=== PATIENT | male | born 1955 | race Caucasian/White ===

== ENCOUNTER 2024-04-04 08:05 | Emergency (ER) | payer MEDICARE, SELFPAY ==
[2024-04-04 08:18] VITALS: BP 132/76; PULSE 70; RESP 18; TEMP 36.3; O2SAT 100
--- NOTE | 2024-04-04 08:30 | ED_ITS ---
HPI - URI/Sore Throat General Chief Complaint: Upper Respiratory Infection Stated Complaint: bronchitis Time Seen by Provider: 04/04/24 08:09 Source: patient Limitations: no limitations History of Present Illness HPI Narrative: 68-year-old male presents to [facility] with complaints of postnasal drip for the past 2 weeks. Patient reports that he then started with a dry cough and chest congestion last night. Patient reports he has history of bronchitis in using receives under medications from his primary care provider. Patient reports that his currently has a sinus infection. Patient has not tried taking any [id number] medications for his symptoms. Patient is a nonsmoker. Patient reports that he did travel to [place] a few weeks ago. Patient denies nausea, vomiting, diarrhea, shortness of breath, fever, fever, body aches or chills. MD elicited complaint: cough and other (chest congestion ) Onset (ago): hour(s) (12) Consistency: intermittent Exacerbating factors: nothing Associated symptoms: denies other symptoms Treatments prior to arrival: none Related Data Home Medications ?Medication ?Instructions ?Recorded ?Confirmed ?Last Taken ?Type potassium citrate 10 mEq (1,080 PO 06/15/19 Unknown History mg) tablet,extended release aspirin 81 mg tablet,delayed 81 mg PO DAILY 04/04/24 Unknown History release (Adult Aspirin Regimen) carvedilol 3.125 mg tablet mg 04/04/24 Unknown History cholecalciferol (vitamin D3) 25 25 mcg PO DAILY 04/04/24 Unknown History mcg (1,000 unit) capsule ezetimibe 10 mg tablet mg 04/04/24 Unknown History multivitamin (Daily Multi-Vitamin 1 tablet PO DAILY 04/04/24 Unknown History tablet) Allergies Allergy/AdvReac Type Severity Reaction Status Date / Time No Known Allergies Allergy Verified 04/04/24 08:19 Review of Systems Constitutional: Constitutional: Denies chills, Denies fatigue, Denies fever(s) and Denies weakness ENT: Denies vertigo, Denies dizziness, Denies epistaxis, Reports nasal congestion and Denies sore throat Cardiovascular: Cardiovascular: Denies chest pain Respiratory: Respiratory: Reports cough, Denies dyspnea and Denies wheezing Gastrointestinal: Gastrointestinal: Denies diarrhea, Denies nausea and Denies vomiting Integumentary/Breasts: Skin/Breast: Denies pruritus, Denies erythema and Denies rash PMFSH Social History Social History Second hand tobacco smoke exposure: No Alcohol intake: never Comments At time of signature, I agree with nursing past medical, surgical, social and family history. There is no relevant family history pertinent to the presenting complaint. Exam Const: General: healthy appearing Nutritional Appearance: well nourished Orientation/consciousness: patient oriented x3 HENMT: Head: normal to inspection Ears: external ears normal and TM's normal bilaterally Face/Nose/Sinus: Normal external nose present and Normal nares present Mouth: Yes Normal oral and palatal mucosa present Teeth and gingiva: dentition normal Throat: posterior oropharynx normal and uvula midline Eyes: Conjunctivae: conjunctivae normal Neck: Neck: normal visual inspection Resp: Effort & Inspection: normal respiratory effort and not labored Auscultation: clear to auscultation bilaterally, no crackles, no rales, no rhonc hi and no wheezes Cardio: Rate: regular rate Rhythm: regular rhythm Heart sounds: no murmurs Skin: General skin exam: normal color Rashes: no rashes Wounds: no wounds Neuro: General: patient oriented x3 and moves all extremities Speech: normal speech Gait exam (Neuro): Normal gait present Extrem: General: normal to inspection Psych: Mental Status: mental status grossly normal Affect: normal affect Attitude: cooperative Course Course Level of Care: Express Care Visit Vital Signs Vital signs: Vital Signs Temperature 36.3 C L 04/04/24 08:18 Pulse Rate 70 04/04/24 08:18 Respiratory Rate 18 04/04/24 08:18 Blood Pressure 132/76 04/04/24 08:18 Pulse Oximetry 100 04/04/24 08:18 Oxygen Delivery Room Air 04/04/24 08:18 Temperature 36.3 C L 04/04/24 08:18 Pulse Rate 70 04/04/24 08:18 Respiratory Rate 18 04/04/24 08:18 Blood Pressure 132/76 04/04/24 08:18 Pulse Oximetry 100 04/04/24 08:18 Oxygen Delivery Room Air 04/04/24 08:18 MDM - URI/Sore Throat MDM Narrative Medical decision making narrative: Lengthy discussion with patient that symptoms are likely viral at this time. Patient has not tried taking any medications for his symptoms. Patient agrees to take medications as prescribed and to follow up with primary care provider if symptoms not improved. Educated patient to proceed to the emergency room symptoms worsen Differential Diagnosis Differential diagnosis: Likely otitis media, sinusitis and viral infection Critical Care Time Critical Care Time Critical Care Time: No Discharge Plan Discharge Clinical Impression: Viral infection Patient Disposition: Home, Self-Care Condition: Stable Instructions: Antibiotic Form Additional Instructions: Rest Increase fluids Take Claritin daily Take Tessalon as needed for cough Take prednisone as prescribed Follow-up with primary care provider if symptoms not improved Proceed to the emergency room if symptoms worsen Patient Language: Persian Prescriptions: New loratadine [Claritin] 10 mg tablet 10 mg PO DAILY Qty: 30 0RF prednisone 20 mg tablet 40 mg PO DAILY 5 Days Qty: 10 0RF benzonatate 100 mg capsule 100 mg PO TID PRN (Reason: cough) Qty: 20 0RF No Action carvedilol 3.125 mg tablet ezetimibe 10 mg tablet aspirin [Adult Aspirin Regimen] 81 mg tablet,delayed release (DR/EC) 81 mg PO DAILY multivitamin [Daily Multi-Vitamin] Tablet 1 tablet PO DAILY cholecalciferol (vitamin D3) 25 mcg (1,000 unit) capsule 25 mcg PO DAILY potassium citrate 10 mEq (1,080 mg) tablet extended release PO atorvastatin 20 mg tablet 20 mg PO DAILY 90 Days Qty: 90 3RF levothyroxine 125 mcg tablet 125 mcg PO DAILY Qty: 90 0RF Follow-up/Referrals: UNKNOWN,DOCTOR [Primary Care Provider] - Time of Disposition: 08:40
--- OUTSIDE RECORDS SUMMARY | 2024-04-11 05:32 | XMS_ITS | Encounter Summary ---
Author Organization [facility] Health Address [address] [place] [address] Care Team Providers Care Insurance Account Executive Name Role Phone JennieKacey membreno [employer] Primary Care Provider + Reason for Visit * Auth/Cert (Routine) Specialty Diagnoses / Procedures Referred By Contac t Referred To Contact Referral ID Status Reason Start Date Expiration Date Visits Re quested Visits Authorized [id number] 1 1 Encounter Details Date Type Department Care Team (Latest Contact Info) Description 11/13/2022 12:45 PM CDT Home Care Visit [facility] Health at Home Home Health [address] [place] [phone] Richa August, YEN SN DISCIPLINE DISCHARGE Social History Tobacco Use Types Packs/Day Years Used Date Smoking Tobacco: Never Smokeless Tobacco: Never Alcohol Use Standard Drinks/Week Comments Not Currently 0 (1 standard drink = 0.6 oz pur e alcohol) AUDIT-C Answer Date Recorded Q1: How often do you have a drink containing alc ohol? Monthly or less 10/29/2022 Q2: How many drinks containi ng alcohol do you have on a typical day when you are drinking? 1 or 2 10/29/2022 Q3: How often do you have si x or more drinks on one occasion? Less than monthly 10/29/2022 Overall Financial Resource Strain (CARDIA) Answe r Date Recorded How hard is it for you to pa y for the very basics like food, housing, medical care, and heating? Not hard at all 10/30/2022 [facility] of Occupat ional Health - Occupational Stress Questionnaire Answer Date Recorded Do you feel stress - tense, restless, nervous, or anxious, or unable to sleep at night because your mind is troubled all the time - these days? Not at all 10/30/2022 Hunger Vital Sign Answer Date Recorded Within the past 12 months, y ou worried that your food would run out before you got the money to buy more. Never true 10/31/19 23 Within the past 12 months, t he food you bought just didn't last and you didn't have money to get more. Never true 10/30/2022 PRAPARE - Transportation Answer Date Re corded In the past 12 months, has l ack of transportation kept you from medical appointments or from getting medications? No 10/13 In the past 12 months, has l ack of transportation kept you from meetings, work, or from getting things needed for daily living? No 10/30/2022 Housing Stability Vital Sign Answer Carl e Recorded In the last 12 months, was t here a time when you were not able to pay the mortgage or rent on time? No 10/30/2022 In the last 12 months, how many places have you lived? 1 10/30/2022 In the last 12 months, was t here a time when you did not have a steady place to sleep or slept in a usp (including now)? No 10/30/2022 Sex and Gender Information Value Date Recorded Sex Assigned at Male 11/11/2021 8:34 AM CDT Gender Identity Male 11/11/2021 8:34 AM CDT Sexual Orientation Straight 11/11/2021 8: 34 AM CDT COVID-19 Exposure Response Date Recorded In the last 10 days, have yo u been in contact with someone who was confirmed or suspected to have Coronavirus/COVID-19? No / Unsure 11/12/2022 8:43 AM CDT documented as of this encounter Last Filed Vital Signs Vital Sign Reading Time Taken Comments Blood Pressure 142/78 11/13/2022 12:58 PM CDT Pulse 74 11/13/2022 12:58 PM CDT Temperature 36.5 ??C (97.7 ??F) 11/13/2022 12:58 PM C DT Respiratory Rate 16 11/13/2022 12:58 PM CDT Oxygen Saturation 98% 11/13/2022 12:58 PM CDT Inhaled Oxygen Concentration - - Weight - - Height - - Body Mass Index - - documented in this encounter Plan of Treatment Not on file documented as of this encounter Visit Diagnoses Not on filedocumented in this encounter Home Health Visit - Care Plan Visit Details Visit Type -SN Discipline Di maximino Discipline -Residential Problems Problem Description Start Date Status Goals Interve ntions X Additional Home Health Orders Disciplines: All Disciplines (HH/Hospice) 11/01/2022 Active 1 goal linked to scheduled/[facility] intervention 1 goal intervention scheduled/[facility] in this visit Knowledge deficit and post op orthopedic management related to aftercare. Disciplines: Skilled Nurse(HH/Hospice ) Knowledge deficit and post op orthopedic management related to LEFT TKA aftercare. 11/01/2022 Active 1 goal linked to scheduled/[facility] intervention 1 goal intervention scheduled/[facility] in this visit Goals Goal Associated Problem Outcome Goal Met? Visit Notes Additional Home Health Orders Description: VITAL SIGNS WILL REMAIN WITHIN PARAMETERS: TEMPERATURE (??F) Adult Patient Greater Than 100.4 (oral) Greater Than 99.8 (axillary) Greater Than 100 (tympanic) Less Than 96 RESPIRATORY RATE Greater Than 24 Less Than 12 PULSE RATE Greater Than 100 Less Than 60 BLOOD PRESSURE --Adult Patient Systolic Greater Than 160 Less Than 90 Diastolic Greater Than 90 Less Than 60 OXYGEN SATURATION Less Than 92 X Additional Home Health Orders Adequate for Discharge No Incision will demonstrate healing until closure without complications. Knowledge deficit and post op orthopedic management related to aftercare. Completed Yes Interventions Intervention Associated Problem/Goal Status Variance Visit Notes Additional Home Health Orders Description: - Assess vital signs and notify MD of significant changes. Problem:X Additional Home Health Orders Goal:Additional Home Health Orders Completed VS WNL Instruct patient on normal signs of healing including but not limited to redness, heat, warmth, swelling, low grade temp, small amount of drainage and discomfort Description: Wound Care: Keep incision clean and dry. Silver dressing should be kept on for 6-8 days from DATE OF PLACEMENT which is generally day of surgery. Dressing may be peeled back to assess wound then reapplied. If dressing is overly saturated due to excessive bleeding or drainage, or if dressing no longer adheres it should be removed. After 6-8 (11/04-11/06) days, or if early failure of silver dressing, replace with dry border gauze dressing as needed for drainage. Remove jeff on day 13 - 15 (11/11-11/13). Do not apply steri-strips. -Edema management: Ice 15-20 minutes/hour prn pain and/or edema management. -Elevation higher than heart 45 minutes, 3x/day -INSTRUCT PATIENT ON PAIN MANAGEMENT, S/S TO REPORT, AND MEDICATIONS. Problem:Knowledge deficit and post op orthopedic management related to aftercare. Goal:Incision will demonstrate healing until closure without complications. Completed JEFF REMOVED PER MD ORDERS. COVERED W/ BORDER GAUZE. SN INSTRUCTED PATIENT TO LEAVE DSG IN PLACE X 24 HOURS AND DO NOT GET WET. IF NO DRAINAGE PRESENT AFTER 24 HOURS, MAY LEAVE CERAMIC ENGINEERING PROFESSOR AND RESUME SHOWERS. NO TUB BATHS AND NO OINTMENTS/ LOTIONS ON INCISION. PATIENT KNOWLEDGABLE ON S/S TO REPORT, MEDS, AND PAIN CONTROL MEASURES. documented in this encounter Care Teams Insurance Account Executive Relationship Specialty Start Date End Date Kacey Lafleur, [employer] [id number], [address] [place] [address] PCP - General Nurse Practitioner Family 09/25/22 documented as of this encounter
--- OUTSIDE RECORDS SUMMARY | 2024-04-11 05:32 | XMS_ITS | Encounter Summary ---
Author Organization [facility] Address [address] [place] [address] Care Team Providers Care Instrument Calibrator Name Role Phone Wongjuan Kacey NOYOLA-EARLY CHILDHOOD EDUCATION COORDINATOR Primary Care Provider + Reason for Visit * Reason Comments Post-Op Lt TKA 10/30/11 / 6 weeks out. Encounter Details Date Type Department Care Team (Late st Contact Info) Description 12/10/2022 2:30 PM CDT Office Visit [facility] Orthoped[facility] [address] [phone] [place] [id number] [address] Aftercare following left knee joint replacement surgery (Primary Dx) Social History Tobacco Use Types Packs/Day Years Used Date Smoking Tobacco: Never Smokeless Tobacco: Never Alcohol Use Standard Drinks/Week Comments Not Currently 0 (1 standard drink = 0.6 oz pur e alcohol) OASIS D0700: Social Isolation Answer Da te Recorded Frequency of experiencing loneliness or isolatio n Never 11/16/2022 OASIS A1250: Transportation Answer Date Recorded Lack of Transportation (Medical) No 11/16/2022 Lack of Transportation (Non-Medical) No 11/16/2022 Patient Unable or Declines to Respond No 11/16/2022 OASIS B1300: Health Literacy Answer Carl e Recorded Frequency of needing help to read materials from doctor or pharmacy Never 11/16/2022 AUDIT-C Answer Date Recorded Q1: How often [...] and heating? Not hard at all 10/30/2022 [facility] of Occupat ional [facility] - Occupational Stress Questionnaire Answer Date Recorded [...] place to sleep or slept in a nursing home (including now)? No 10/30/2022 Sex and Gender Information Value Date Recorded Sex Assigned at Male 11/11/2021 8:34 AM CDT Gender Identity Male 11/11/2021 8:34 AM CDT Sexual Orientation Straight 11/11/2021 8: 34 AM CDT COVID-19 Exposure Response Date Recorded In the last 10 days, have yo u been in contact with someone who was confirmed or suspected to have Coronavirus/COVID-19? No / Unsure 11/16/2022 8:50 AM CDT documented as of this encounter Progress Notes * Carlton Mayo PA-C - 12/10/2022 3:04 PM CDT 6 weeks out on left tka had a small area where there was a small pin hole medially healing well 2-116 f/u in 4-6 weeks * Radha Khan MA - 12/10/2022 2:40 PM CDT Chief Complaint Patient presents with ??? Post-Op Lt TKA 10/29/ / 6 weeks out. documented in this encounter H&P Notes * Carlton Mayo PA-C - 12/19/2022 2:43 AM CDT DATE OF SERVICE: 12/10/2022 HISTORY: Patient is six weeks out on his left knee replacement. Left knee is progressing slowly. He had one small area on his incision that looks likes that he was having a little bit of a stitch rising up, but there was no evidence of any drainage or erythema. CLINICAL EXAMINATION: Today, exam shows a well-healed incision. No evidence of any infection. Motion, he is 0-116 with good strength, good stability, good terminal extension. His one area on his incision is midline, slight pinhole, but it looks like a stitch was coming through. IMPRESSION: Progressing well. TREATMENT: We will see his back in the office in about 4 weeks. If he has any problems or concerns, we will see him back sooner, such as any fevers, chills, pain with motion, redness, heat. We would want to see him back sooner with any of those symptoms, but he should do well with this. MARY JO Medrano M.D. SALLIE/Clemente #: [id number] documented in this encounter Procedure Notes * Misa Bray RT(R) - 12/10/2022 3:04 PM CDTAssociated Order(s): XR KNEE LEFT 3VW See progress notes for results documented in this encounter Plan of Treatment Not on file documented as of this encounter Procedures Procedure Name Priority Date/Time Associated Diagnosis Comments XR KNEE LEFT 3VW Routine 12/10/2022 3:05 PM CDT Aftercare following left knee joint replacement surgery documented in this encounter Results * XR KNEE LEFT 3VW (12/10/2022 3:05 PM CDT) Anatomical Region Laterality Modality Lower Extremity Computed Radiogr aphy Narrative 12/10/2022 3:04 PM CDT Misa Bray RT(R) ? 12/20/2022 ??6:08 PM See progress notes for results Elton Riggs MD DIAGNOSTIC IMAGING O RDERABLES documented in this encounter Visit Diagnoses Diagnosis Aftercare following left knee joint replacement surgery- Primary Aftercare following left knee joint replacement surgery documented in this encounter Care Teams Instrument Calibrator Relationship Specialty Start Date End Date Kacey Lafleur APRN-KEI [id number], [address] [place] [address] PCP - General Nurse Practitioner Family 09/25/22 documented as of this encounter
--- OUTSIDE RECORDS SUMMARY | 2024-04-11 05:32 | XMS_ITS | Encounter Summary ---
Author Organization [facility] Address [address] [place] [address] Care Team Providers Care Equipment Processer Storage Name Role Phone WongKacey martinez [employer] Primary Care Provider + Reason for Visit * Auth/Cert (Routine) Specialty Diagnoses / Procedures Referred By Contac t Referred To Contact Referral ID Status Reason Start Date Expiration Date Visits Re quested Visits Authorized [id number] 1 1 Encounter Details Date Type Department Care Team (Late st Contact Info) Description 11/14/2022 Home Care Visit [facility] [place] [facility] [address], [address] [place] [phone] Fifi Garcia, CARE CONFERENCE Social History Tobacco Use Types Packs/Day Years [...] and heating? Not hard at all 10/30/2022 [facility] [place] of Occupat ional Health - Occupational Stress [...] place to sleep or slept in a penitentiary (including now)? No 10/30/2022 Sex and Gender [...] AM CDT documented as of this encounter Plan of Treatment Not on file documented as of this encounter Visit Diagnoses Not on filedocumented in this encounter Care Teams Equipment Processer Storage Relationship Specialty Start Date End Date Kacey Lafleur APRN-KEI [address], [address] [place] [address] PCP - General Nurse Practitioner Family 09/25/22 documented as of this encounter
--- OUTSIDE RECORDS SUMMARY | 2024-04-11 05:32 | XMS_ITS | Encounter Summary ---
Author Organization [facility] Address [address] [place] [address] Care Team Providers Care Fundraising Specialist Name Role Phone Kacey Lafleur HUMAN RESOURCES COMPENSATION ANALYST-PLASTIC MOLDER Primary Care Provider + Reason for Visit * Reason Comments Post-Op --L TKA 10-29-22 3 WE EKS OUT Encounter Details Date Type Department Care Team (Late st Contact Info) Description 11/19/2022 9:00 AM CDT Office Visit [facility] Orthopedics [id number] [place] [phone] Jam Hernandez, HUMAN RESOURCES COMPENSATION ANALYST-PLASTIC MOLDER [id number] [place] [phone] Aftercare following left knee joint replacement surgery [...] and heating? Not hard at all 10/30/2022 [facility] of Occupat ional Health - Occupational Stress [...] place to sleep or slept in a jail (including now)? No 10/30/2022 Sex and Gender [...] as of this encounter Progress Notes * David Jam D, HUMAN RESOURCES COMPENSATION ANALYST-PLASTIC MOLDER - 11/19/2022 9:17 AM CDT Total Knee Post -op Followup Three Weeks History: Radha Zhang is three weeks status post left total knee arthroplasty. He is doing well.. Patient describes their pain as aching}. Patient is currently taking 81 mg aspirin twice per day for DVT prophylaxis. Pain is being managed by Tylenol OTC, Meloxicam. Home physical therapy is complete. Current Outpatient Medications Medication Sig Dispense Refill ??? aspirin (Aspirin) 81 MG chew tablet Take 1 (one) tablet by mouth 2 times daily for 42 days For blood clot prevention. Resume home dose once full dose therapy completed. ??? atorvastatin (LIPITOR) 80 MG tablet Take 1 tablet by mouth once daily Reasons: High Amount of Fats in the Blood ??? carvedilol (COREG) 3.125 MG tablet Take 1 (one) tablet by mouth 2 times daily Reasons: High Blood Pressure Disorder ??? cephalexin (Keflex) 500 MG capsule Take 1 (one) capsule by mouth 3 times daily 30 capsule 0 ??? Coenzyme Q10 (Co Q-10) 100 MG Take 1 capsule by mouth once daily Reasons: supplement ??? ezetimibe (Zetia) 10 MG tablet Take 1 tablet by mouth once daily Reasons: High Amount of Fats in the Blood ??? levothyroxine (SYNTHROID) 125 MCG tablet Take 1 tablet by mouth every morning Reasons: Underactive Thyroid ??? meloxicam (Mobic) 15 MG tablet TAKE 1 TABLET BY MOUTH EVERY DAY 30 tablet 5 ??? Multiple Vitamins-Minerals (CENTRUM SILVER) TABS Take 1 (one) tablet by mouth once daily Reasons: supplement ??? omeprazole (PriLOSEC) 20 MG capsule Take 1 (one) capsule by mouth once daily for 42 days 30 capsule 0 ??? potassium citrate (Urocit K 10) 10 MEQ (1080 MG) tablet Take 1 tablet by mouth 3 times daily with meals Reasons: Low Amount of Potassium in the Blood ??? vitamin D3 (CHOLECALCIFEROL) 75 MCG (3000 UT) tablet Take 1 tablet by mouth once daily Reasons:supplement No current facility-administered medications for this visit. Physical Examination: On examination today, he is able to ambulate without a visible limp using no assistive device.. his knee incision is well healed, with no erythema, drainage, or evidence of infection with a small effusion. Active range of motion today is 1 degrees to 100. No varus or valgus instability is present. Impression: S/P left total knee arthroplasty. Plan: We will see him back in the office in three weeks for routine follow up x- rays. Patient should continue with home physical therapy exercises. Patient will continue to take 81 mg aspirin twice per day until 6 weeks from the date of surgery. Patient will continue to manage pain with tylenol. Patient is to call with any concerns or issues prior to the next visit. Patient educated and given handout on additional exercises to obtain better flexion/extension and demonstrated understanding of the current plan. No orders of the defined types were placed in this encounter. ARTURO Paz * Get Tirado MA - 11/19/2022 9:09 AM CDT Chief Complaint Patient presents with ??? Post-Op --L TKA 10-29-22 3 WEEKS OUT documented in this encounter Plan of Treatment Not on file documented as of this encounter Visit Diagnoses Diagnosis Aftercare following left knee joint replacement surgery- Primary documented in this encounter Care Teams Fundraising Specialist Relationship Specialty Start Date End Date Kacey Lafleur APRN-CNP [id number] [facility], [address] [place] [address] PCP - General Nurse Practitioner Family 09/25/22 documented as of this encounter
--- OUTSIDE RECORDS SUMMARY | 2024-04-11 05:32 | XMS_ITS | Encounter Summary ---
Author Organization [facility] Address [address] [place] [address] Care Team Providers Care Forest Fire Lookout Name Role Phone WongKacey martinez DENNYS-ASSISTANT FILM EDITOR Primary Care Provider + Reason for Visit * Auth/Cert (Routine) Specialty Diagnoses / Procedures Referred By Contac t Referred To Contact Referral ID Status Reason Start Date Expiration Date Visits Re quested Visits Authorized [id number] 1 1 Encounter Details Date Type Department Care Team (Late st Contact Info) Description 11/14/2022 12:00 PM CDT Home Care Visit [facility] Home Health [address], [address] [place] [phone] Fifi Garcia, LEN PT HOME VISIT Social History Tobacco Use Types Packs/Day Years [...] and heating? Not hard at all 10/30/2022 [facility] Occupat [facility] - Occupational Stress [...] place to sleep or slept in a residential (including now)? No 10/30/2022 Sex and Gender [...] Sign Reading Time Taken Comments Blood Pressure 128/76 11/14/2022 5:47 PM CDT Pulse 74 11/14/2022 5:47 PM CDT Temperature 36.6 ??C (97.8 ??F) 11/14/2022 5:47 PM CD T Respiratory Rate 17 11/14/2022 5:47 PM CDT Oxygen Saturation 98% 11/14/2022 5:47 PM CDT Inhaled Oxygen Concentration - - Weight - - Height - - Body Mass Index - - documented in this encounter Plan of Treatment Not on file documented as of this encounter Visit Diagnoses Not on filedocumented in this encounter Home Health Visit - Care Plan Visit Details Visit Type -PT Home Visit Discipline -Physical Therapy Problems Problem Description Start Date Status Goals Interve ntions X Additional Home Health Orders Disciplines: All Disciplines (/Hospice) 11/01/2022 Active 1 goal linked to scheduled/[facility] intervention Gait Deficit Disciplines: PT (/Hospice) - Decreased ambulation requiring independent without device level of assist. - Decreased quality of gait with gait deviations and/or impaired postural alignment. 11/01/2022 Active 1 goal linked to scheduled/[facility] intervention 1 goal intervention scheduled/[facility] in this visit Decreased Range of Motion Disciplines: PT (/Hospice) Decreased range of motion in lower extremities related to LTK 11/01/2022 Active 1 goal linked to scheduled/[facility] intervention 1 goal intervention scheduled/[facility] in this visit Home Exercise Program Disciplines: PT (/Hospice) Requires instruction of home program for therapeutic exercise. 11/01/2022 Active 1 goal linked to scheduled/documen [...] Than 92 X Additional Home Health Orders Progressing No met to date Patient improves ambulation and quality of gait Description: - Improved household ambulation as evidenced by ambulation with independent without device level of assist and single point cane within 30 days. - Improved quality of gait as evidenced by INDEPENDENT WITH ADLS in 30 days. Gait Deficit Progressing No Patient maintains or increases range of motion without developing further contracture Description: - Increase range of motion of lower extremities to 115 degrees within 30 days. - Improve lower extremity function as evidenced by active range of motion of involved limb in 30 days. Decreased Range of Motion Progressing No 108 degrees with todays assessment Patient performs home exercise program Description: - Demonstrates good follow-through with progressive exercise program within 30 days. - Patient will be able to demonstrate home program within 30 days. - Patient will be able to perform home program with independent without device level of assist in 30 days. Home Exercise Program Progressing No compliance demonstrated with current hep Interventions Intervention Associated Problem/Goal Status Variance Visit Notes Gait Deficit Description: Gait training. Problem:Gait Deficit Goal:Patient improves ambulation and quality of gait Completed INSTRUCTED AND PERFORMED GAIT TRAINING TO [place]QU[place] GAINES THROUGH FRONT DOOR WITH USE OF CANE WITH MIN A FOR BALANCE AND SAFETY. AMBUALTED TO END OF DRIVEWAY AND THEN RETURNED WITH [facility]. Decreased ROM Description: - Therapeutic exercise. - Establish home exercise program. Problem:Decreased Range of Motion Goal:Patient maintains or increases range of motion without developing further contracture Completed Completed this visit: Therapeutic exercise instructed and performed pres in reps of 10 times : supine: ap, gs, qs, heel slides with strap assit, hip abd, short arc quad, slr sitting: long arc quad, sitting sitting knee flexion stretch, both in reps of 10 times. standing with support of the walker: standing heel raises in reps of 10 times, hip flexion and knee flexion, hip abd added knee hang for5 minutes stair stretch with 20 second hold. Home Exercise Program Description: - Establish home exercise program. - Instruct Patient in home exercise program. Problem:Home Exercise Program Goal:Patient performs home exercise program Completed Completed this visit: Upgrade home exercise program stair stretch with 20 second hold added to hep documented in this encounter Care Teams Forest Fire Lookout Relationship Specialty Start Date End Date Kacey Lafleur, DENNYS-ASSISTANT FILM EDITOR [address], [address] [place] [address] PCP - General Nurse Practitioner Family 09/25/22 documented as of this encounter
--- OUTSIDE RECORDS SUMMARY | 2024-04-11 05:32 | XMS_ITS | Encounter Summary ---
Author Organization [facility] Address [address] [place] [address] Care Team Providers Care Signalman Name Role Phone WongKacey martinez DENNYS-TRAINING ASSISTANT Primary Care Provider + Reason for Visit * Auth/Cert (Routine) Specialty Diagnoses / Procedures Referred By Contac t Referred To Contact Referral ID Status Reason Start Date Expiration Date Visits Re quested Visits Authorized [id number] 1 1 Encounter Details Date Type Department Care Team (Late st Contact Info) Description 11/16/2022 8:00 AM CDT Home Care Visit [facility] at Home Home Health [address], [address] [place] [phone] Fifi Garcia, LEN PT OASIS DISCHARGE Social History Tobacco Use Types Packs/Day [...] and heating? Not hard at all 10/30/2022 [facility] - Occupational Stress Questionnaire Answer Date [...] place to sleep or slept in a half-way (including now)? No 10/30/2022 Sex and Gender [...] Sign Reading Time Taken Comments Blood Pressure 124/76 11/16/2022 11:07 AM CDT Pulse 68 11/16/2022 11:07 AM CDT Temperature 36.6 ??C (97.8 ??F) 11/16/2022 11:07 AM C DT Respiratory Rate 17 11/16/2022 11:07 AM CDT Oxygen Saturation 98% 11/16/2022 11:07 AM CDT Inhaled Oxygen Concentration - - Weight - - Height - - Body Mass Index - - documented in this encounter Plan of Treatment Not on file documented as of this encounter Visit Diagnoses Not on filedocumented in this encounter Home Health Visit - Care Plan Visit Details Visit Type -PT MALLY maurer Discipline -Physical Therapy Problems Problem Description Start Date Status Goals Interve ntions X Additional Home Health Orders Disciplines: All Disciplines (HH/Hospice) 11/01/2022 Active 1 goal linked to scheduled/[facility] intervention Gait Deficit Disciplines: PT (HH/Hospice) - Decreased ambulation requiring independent without device [...] Than 92 X Additional Home Health Orders Completed Yes met to date Patient improves ambulation and quality of gait Description: - Improved household ambulation as evidenced by ambulation with independent without device level of assist and single point cane within 30 days. - Improved quality of gait as evidenced by INDEPENDENT WITH ADLS in 30 days. Gait Deficit Completed Yes independent with gait in home and in community for short distances with no ad. Patient maintains or increases range of motion without developing further contracture Description: - Increase range of motion of lower extremities to 115 degrees within 30 days. - Improve lower extremity function as evidenced by active range of motion of involved limb in 30 days. Decreased Range of Motion Completed Yes 106 degrees with todays assessment Patient performs home exercise program Description: - Demonstrates good follow-through with progressive exercise program within 30 days. - Patient will be able to demonstrate home program within 30 days. - Patient will be able to perform home program with independent without device level of assist in 30 days. Home Exercise Program Completed Yes compliance with current hep is notes Interventions Intervention Associated Problem/Goal Status Variance Visit Notes Gait Deficit Description: Gait training. Problem:Gait Deficit Goal:Patient improves ambulation and quality of gait Completed instructed and performed gait training with no ad in home and then to exit through garage door with sba times one. performed car transfers without any assistance. gait to mailbox and then returned with no ad with sba times one. Decreased ROM Description: - Therapeutic exercise. - [...] minutes stair stretch with 20 second hold. standing calf stretch with 15 second hold. repeat 3 times Home Exercise Program Description: - Establish home exercise program. - Instruct Patient in home exercise program. Problem:Home Exercise Program Goal:Patient performs home exercise program Completed Completed this visit: Upgrade home exercise program added standing calf stretch with 15 second hold. repeated three times on each leg. documented in this encounter Care Teams Signalman Relationship Specialty Start Date End Date Kacey Lafleur, CORE CUTTER AND REAMER-TRAINING ASSISTANT [address], [address] [place], [place] [phone] PCP - General Nurse Practitioner Family 09/25/22 documented as of this encounter
--- OUTSIDE RECORDS SUMMARY | 2024-04-11 05:32 | XMS_ITS | Clinical Summary ---
Author Organization [facility] Address [address] [place] [address] Care Team Providers Care Operations Supervisor 2Nd Shift Name Role Phone Kacey Lafleur APRN-SYSTEMS PROGRAMMER Primary Care Provider + Source Comments [facility],non-owned Affiliates and Associated Physician Practices is amultiple site organization consisting of ambulatory clinics and hospital sitesin [place], [place], [place] and [place]. This disclosure is being madepursuant to the Care Everywhere program and may not contain all information available regarding this patient. Last updated 18.[facility] Allergies No known active allergies Medications * Be aware that medications may not be up to date on this document. Alwaysverify current medications with the patient. Medication Sig Dispensed Refills Start Date End Date Status atorvastatin (LIPITOR) 80 MG tabletIndications: Hyperlipidemia Take 1 tablet by mouth once daily Reasons: High Amount of Fats in the Blood 10/14/2020 Active carvedilol (COREG) 3.125 MG tabletIndications: Hypertension Take 1 (one) tablet by mouth 2 times daily Reasons: High Blood Pressure Disorder 10/14/2020 Active vitamin D3 (CHOLECALCIFEROL) 75 MCG (3000 UT) tabletIndications: supplement Take 1 tablet by mouth once daily Reasons: supplement 2018 Active levothyroxine (SYNTHROID) 125 MCG tabletIndications: Hypothyroidism Take 1 tablet by mouth every morning Reasons: Underactive Thyroid 10/14/1999 Active Multiple Vitamins-Minerals (CENTRUM SILVER) TABSIndications:naranjo pplement Take 1 (one) tablet by mouth once daily Reasons: supplement Active ezetimibe (Zetia) 10 MG tabletIndications: Hyperlipidemia Take 1 tablet by mouth once daily Reasons: High Amount of Fats in the Blood 04/18/2022 Active Coenzyme Q10 (Co Q-10) 100 MGIndications:supp lement Take 1 capsule by mouth once daily Reasons: supplement 10/15/2021 Active potassium citrate (Urocit K 10) 10 MEQ (1080 MG) tabletIndications: Hypokalemia Take 1 tablet by mouth 3 times daily with meals Reasons: Low Amount of Potassium in the Blood Active meloxicam (Mobic) 15 MG tabletIndications: Osteoarthritis TAKE 1 TABLET BY MOUTH EVERY DAY 30 tablet 5 10/22/2022 Active cephalexin (Keflex) 500 MG capsuleIndications :Prosthetic Joint Infection Take 1 (one) capsule by mouth 3 times daily 30 capsule 11/08/2022 Active meloxicam (Mobic) 15 MG tablet Take 1 (one) tablet by mouth once daily 90 tablet 2 12/10/2022 Active Active Problems Problem Noted Date Diagnosed Date CAD (coronary artery disease) 11/15/2021 Primary osteoarthritis of left knee 11/15/2021 History of cardiac cath 10/14/2020 Mixed hyperlipidemia 08/22/2020 Social History Tobacco Use Types Packs/Day Years Used Date Smoking Tobacco: Never Smokeless Tobacco: Never Tobacco Cessation:Counseling Given: Not Answered Alcohol Use Standard Drinks/Week Comments Not Currently [...] and heating? Not hard at all 10/30/2022 [facility] [place] [facility] Occupat ional Health - Occupational Stress [...] place to sleep or slept in a mcc (including now)? No 10/30/2022 Sex and Gender Information Value Date Recorded Sex Assigned at Male 11/11/2021 8:34 AM CDT Gender Identity Male 11/11/2021 8:34 AM CDT Sexual Orientation Straight 11/11/2021 8: 34 AM CDT Last Filed Vital Signs Vital Sign Reading Time Taken Comments Blood Pressure 124/76 11/16/2022 11:07 AM CDT Pulse 68 11/16/2022 11:07 AM CDT Temperature 36.6 ??C (97.8 ??F) 11/16/2022 11:07 AM C DT Respiratory Rate 17 11/16/2022 11:07 AM CDT Oxygen Saturation 98% 11/16/2022 11:07 AM CDT Inhaled Oxygen Concentration - - Weight 124 kg (273 lb 6.4 oz) 10/29/2022 6:21 AM CDT Height 182.9 cm (6') 10/29/2022 6:21 AM CDT stat ed Body Mass Index 37.08 10/29/2022 6:21 AM CDT Plan of Treatment Health Maintenance Due Date Last Done Comments COLOGUARD (AGES 45-75) - COL ON CA SCREENING 1954 COLON MONITORING 1954 COLONOSCOPY - COLON CA SCREENING 1954 CT COLONOGRAPHY - COLON CA SCREENING 1954 Colorectal Cancer Screening 1954 FIT - COLON CA SCREENING 1954 FLEX SIG - COLON CA SCREENING 1954 HEPATITIS C SCREENING 10/08/1972 DTAP/TDAP/TD VACCINES (1 - Tdap) 1973 ZOSTER VACCINE (1 of 2) 2004 PNEUMOCOCCAL VACCINE 65+ (1 of 1 - PCV) 10/14/2019 DEPRESSION SCREENING 04/15/2023 MEDICARE AWV ? CALENDAR YEAR 2023 COVID-19 VACCINE (1 - 2023-2 5 season) 2023 INFLUENZA VACCINE (#1) 2023 SCREENING FOR DIABETES 09/25/2025 09/25/2022 Respiratory Syncytial Virus (RSV) Vaccine Pt: or over 60 yrs (1 - 1-dose 75+ series) 2029 HEPATITIS B VACCINE Aged Out No longe r eligible based on patient's age to complete this topic HIB VACCINE Aged Out No longer eligi ble based on patient's age to complete this topic HPV VACCINE Aged Out No longer eligi ble based on patient's age to complete this topic MENINGOCOCCAL VACCINE Aged Out No rohini brisa eligible based on patient's age to complete this topic Medical Devices Implanted Type Area Factory Superintendent Device Identifier Shelf Expiration Date Model / Serial / Lot Cmnt Bone Plc R 40gm Grn Implanted:Qty: 2 on 10/29/2022 by Elton Riggs MD at [facility] Left: Knee [employer] 03/14/2025 [id number] / / [id number] Cmpnt Ptlr Std 31mm 3 Pg Kn Ser A Implanted:Qty: 1 on 10/29/2022 by Elton Riggs MD at [facility] Left: Knee [employer] 07/19/2027 [id number] / / [id number] Cmpnt Fem Kn Lt Cr Cmnt Prm Vngrd Intlk Implanted:Qty: 1 on 10/29/2022 by Elton Riggs MD at [facility] Left: Knee [employer] 06/18/2032 [id number] / / [id number] Tray Tib 83mm Kn Cocr I Beam Implanted:Qty: 1 on 10/29/2022 by Elton Riggs MD at [facility] Left: Knee [employer] 04/27/2030 [id number] / / [id number] Brng 46rdr27mm Vngrd Arcm Kn Ant Stab Implanted:Qty: 1 on 10/29/2022 by Elton Riggs MD at [facility] Left: Knee [employer] 02/23/2027 [id number] / / [id number] Procedures Procedure Name Priority Date/Time Associated Diagnosis Comments COMPREHENSIVE METABOLIC PANEL STAT 09/25/2022 7:56 AM CDT Preoperative examination from Last 3 Months or Most Recently Relevant to Health Maintenance Results * (ABNORMAL) COMPREHENSIVE METABOLIC PANEL (09/25/2022 7:56 AM CDT) Glucose 94 70 - 105 mg/dL 09/25/2022 8:20 AM CDT [facility] Sodium 140 136 - 145 mmol/L 09/25/2022 8:20 AM CDT [facility] Potassium 4.4 3.5 - 5.1 mmol/L 09/25/2022 8:20 AM CDT [facility] Chloride 107 98 - 107 mmol/L 09/25/2022 8:20 AM CDT [facility] CO2 25 23 - 31 mmol/L 09/25/2022 8:20 AM CDT [facility] Calcium 9.2 8.4 - 10.4 mg/dL 09/25/2022 8:20 AM CDT [facility] Anion Gap 8 8 - 18 mmol/L 09/25/2022 8:20 AM CDT [facility] BUN 24 8.4 - 25.7 mg/dL 09/25/2022 8:20 AM CDT [facility] Creatinine 1.27(H) 0.72 - 1.25 mg/dL 09/25/2022 8:20 AM CDT [facility] Alkaline Phosphatase 66 40 - 150 U/L 09/25/2022 8:20 AM CDT [facility] ALT 31 0 - 61 U/L 09/25/2022 8:20 AM CDT [facility] AST 19 5 - 34 U/L 09/25/2022 8:20 AM CDT [facility] Protein Total 6.7 6.4 - 8.3 gm/dL 09/25/2022 8:20 AM CDT [facility] Albumin 4.3 3.2 - 4.6 gm/dL 09/25/2022 8:20 AM CDT [facility] Bilirubin Total 1.2 0.2 - 1.2 mg/dL 09/25/2022 8:20 AM CDT [facility] eGFR by CKD-EPI 62(L) >=90 mL/min/1.7 3 m2 09/25/2022 8:20 AM CDT [facility] Blood BLOOD SPECIMEN / Unknown Venipuncture / Unknown 09/25/2022 7:56 AM CDT 09/25/2022 8:02 AM CDT Camilla Stevens LENDING CONSULTANT-SYSTEMS PROGRAMMER LAB - CHEMIS TRY ORDERABLES Performing Organization Address City/State/[facility] Co de Phone Number [facility] [address] [place] [address] from Last 3 Months or Most Recently Relevant to Health Maintenance Advance Directives * Full Code (Latest Code Status on File) Date Activated Date Inactivated Comments 11/01/2022 2:35 PM To update the patient's code status, place a code status order. Do not modify or discontinue any currently active code status orders. * Full Code Date Activated Date Inactivated Comments 10/29/2022 10:55 AM 10/30/2022 1:27 PM Care Teams Operations Supervisor 2Nd Shift Relationship Specialty Start Date End Date Kacey Lafleur, DENNYS-SYSTEMS PROGRAMMER [address], [address] [place], [place] [phone] PCP - General Nurse Practitioner Family 09/25/22
--- OUTSIDE RECORDS SUMMARY | 2024-04-11 05:32 | XMS_ITS | Referral Summary ---
Author Organization [facility] Address [address] [place] [address] Care Team Providers Care Tree Loader Meat Name Role Phone Kacey Lafleur APRN-MARKETING REPS SPORTS AND ENTERTAINMENT Primary Care Provider + Source Comments [facility],non-owned Affiliates and Associated Physician Practices is amultiple site organization consisting of ambulatory clinics and hospital sitesin [place], [place], [place] and [place]. This disclosure is being madepursuant to the Care Everywhere program and may not contain all information available regarding this patient. Last updated 18.[facility] Allergies No known active allergies Medications * [...] and heating? Not hard at all 10/30/2022 [facility] [place] of Occupat ional Health - Occupational Stress [...] 10/29/2022 6:21 AM CDT Plan of Treatment Not on file Medical Devices Implanted Type Area Contracts Analyst Device Identifier Shelf Expiration Date Model / Serial / Lot Cmnt Bone Plc R 40gm Grn Implanted:Qty: 2 on 10/29/2022 by Elton Riggs MD at [facility] Left: Knee [employer] 03/14/2025 [id number] / / [id number] Cmpnt Ptlr Std 31mm 3 Pg Kn Ser A Implanted:Qty: 1 on 10/29/2022 by Elton Riggs MD at [facility] Left: Knee [employer] 07/19/2027 [id number] / / [id number] Cmpnt Fem Kn Lt Cr Cmnt Prm Vngrd Intlk Implanted:Qty: 1 on 10/29/2022 by Elton Riggs MD at [facility] Left: Knee [employer] 06/18/2032 [id number] / / [id number] Tray Tib 83mm Kn Cocr I Beam Implanted:Qty: 1 on 10/29/2022 by Elton Riggs MD at [facility] Left: Knee [employer] 04/27/2030 [id number] / / [id number] Brng [id number] Vngrd Arcm Kn Ant Stab Implanted:Qty: 1 on 10/29/2022 by Elton Riggs MD at [facility] Left: Knee [employer] 02/23/2027 [id number] / / [id number] Procedures Procedure Name Priority Date/Time Associated Diagnosis Comments COMPREHENSIVE METABOLIC PANEL STAT 09/25/2022 7:56 AM CDT Preoperative examination from Last 3 Months or Most Recently Relevant to Health Maintenance Results * (ABNORMAL) COMPREHENSIVE METABOLIC PANEL (09/25/2022 7:56 AM CDT) [facility] Glucose 94 70 - 105 mg/dL 09/25/2022 8:20 AM CDT [facility] Sodium 140 136 - 145 mmol/L 09/25/2022 8:20 AM CDT [facility] Potassium 4.4 3.5 - 5.1 mmol/L 09/25/2022 8:20 AM CDT [facility] Chloride 107 98 - 107 mmol/L 09/25/2022 8:20 AM CDT [facility] CO2 25 23 - 31 mmol/L 09/25/2022 8:20 AM CDT [facility] Calcium 9.2 8.4 - 10.4 mg/dL 09/25/2022 8:20 AM CDT [facility] Anion Gap 8 8 - 18 mmol/L 09/25/2022 8:20 AM CDT [facility] BUN 24 8.4 - 25.7 mg/dL 09/25/2022 8:20 AM CDT [facility] Creatinine 1.27(H) 0.72 - 1.25 mg/dL 09/25/2022 8:20 AM CDT [facility] Alkaline Phosphatase 66 40 - 150 U/L 09/25/2022 8:20 AM CDT [facility] ALT 31 0 - 61 U/L 09/25/2022 8:20 AM CDT [facility] AST 19 5 - 34 U/L 09/25/2022 8:20 AM CDT [facility] Protein Total 6.7 6.4 - 8.3 gm/dL 09/25/2022 8:20 AM CDT [facility] Albumin 4.3 3.2 - 4.6 gm/dL 09/25/2022 8:20 AM CDT [facility] Bilirubin Total 1.2 0.2 - 1.2 mg/dL 09/25/2022 8:20 AM CDT [facility] eGFR by CKD-EPI 62(L) >=90 mL/min/1.7 3 m2 09/25/2022 8:20 AM CDT [facility] Blood BLOOD SPECIMEN / Unknown Venipuncture / Unknown 09/25/2022 7:56 AM CDT 09/25/2022 8:02 AM CDT Camilla Stevens FITNESS COACH-MARKETING REPS SPORTS AND ENTERTAINMENT LAB - CHEMIS TRY ORDERABLES [facility] [address] [place] [address] from Last 3 Months or [...] 10:55 AM 10/30/2022 1:27 PM Care Teams Tree Loader Meat Relationship Specialty Start Date End Date Kacey Lafleur APRN-CNP [address], [address] [place] [address] PCP - General Nurse Practitioner Family 09/25/22
--- OUTSIDE RECORDS SUMMARY | 2024-04-11 05:32 | XMS_ITS | Encounter Summary ---
Author Organization [facility] Address [address] [place] [address] Care Team Providers Care Marine Electronics Repairer Name Role Phone Kacey Lafleur APRN-BLENDING MACHINE FEEDER Primary Care Provider + Encounter Details Date Type Department Care Team (Latest Contact Info) Description 12/10/2022 3:05 PM CDT Ancillary Procedure [facility] Orthopedics - Radiology [address] [place] [phone] [place] [id number] [address] Aftercare following left knee joint replacement surgery Social History Tobacco Use Types Packs/Day Years [...] and heating? Not hard at all 10/30/2022 [facility] Occupat ional Health - Occupational Stress [...] Diagnosis Aftercare following left knee joint replacement surgery documented in this encounter Care Teams Marine Electronics Repairer Relationship Specialty Start Date End Date Kacey Lafleur, E COMMERCE STRATEGIST-BLENDING MACHINE FEEDER [address], [address] [place] [address] PCP - General Nurse Practitioner Family 09/25/22 documented as of this encounter
--- OUTSIDE RECORDS SUMMARY | 2024-04-11 05:32 | XMS_ITS | Patient Health Summary ---
Author Organization [facility] Address [address] [address] Care Team Providers Care Leather Patcher Name Role Phone Kacey Lafleur APRN-FULL STACK PYTHON DEVELOPER Primary Care Provider + Note from [facility],non-owned Affiliates and Associated Physician Practices is amultiple site organization consisting of ambulatory clinics and hospital sitesin [place], [place], [place] and [place]. This disclosure is being madepursuant to the Care Everywhere program and may not contain all information available regarding this patient. Last updated 18.[facility] Allergies No known active allergies Medications * Be aware that medications may not be up to date on this document. Alwaysverify current medications with the patient. * atorvastatin (LIPITOR) 80 MG tablet(Started 10/14/2020) Take 1 tablet by mouth once daily Reasons: High Amount of Fats in the Blood * carvedilol (COREG) 3.125 MG tablet(Started 10/14/2020) Take 1 (one) tablet by mouth 2 times daily Reasons: High Blood Pressure Disorder * vitamin D3 (CHOLECALCIFEROL) 75 MCG (3000 UT) tablet(Started 2018) Take 1 tablet by mouth once daily Reasons: supplement * levothyroxine (SYNTHROID) 125 MCG tablet(Started 10/14/1999) Take 1 tablet by mouth every morning Reasons: Underactive Thyroid * Multiple Vitamins-Minerals (CENTRUM SILVER) TABS Take 1 (one) tablet by mouth once daily Reasons: supplement * ezetimibe (Zetia) 10 MG tablet(Started 04/18/2022) Take 1 tablet by mouth once daily Reasons: High Amount of Fats in the Blood * Coenzyme Q10 (Co Q-10) 100 MG(Started 10/15/2021) Take 1 capsule by mouth once daily Reasons: supplement * potassium citrate (Urocit K 10) 10 MEQ (1080 MG) tablet Take 1 tablet by mouth 3 times daily with meals Reasons: Low Amount of Potassium in the Blood * meloxicam (Mobic) 15 MG tablet(Started 10/22/2022) TAKE 1 TABLET BY MOUTH EVERY DAY 5 refills by 10/22/2023 * cephalexin (Keflex) 500 MG capsule(Started 11/08/2022) Take 1 (one) capsule by mouth 3 times daily * meloxicam (Mobic) 15 MG tablet(Started 12/10/2022) Take 1 (one) tablet by mouth once daily 2 refills by 12/10/2023 Active Problems Problem Noted Date Diagnosed Date [...] and heating? Not hard at all 10/30/2022 [facility] [place] of Occupat ional Health - Occupational Stress [...] place to sleep or slept in a long term (including now)? No 10/30/2022 Sex and Gender [...] Mass Index 37.08 10/29/2022 6:21 AM CDT Medical Devices Implanted Type Area Cadastral Engineer Device Identifier Shelf Expiration Date Model / Serial / Lot Cmnt Bone Plc R 40gm Grn Implanted:Qty: 2 on 10/29/2022 by Elton Riggs MD at [facility] Left: Knee [employer] 03/14/2025 [id number] / / [id number] Cmpnt Ptlr Std 31mm 3 Pg Kn Ser A Implanted:Qty: 1 on 10/29/2022 by Elton Riggs MD at [facility] Left: Knee [employer] 07/19/2027 [id number] / / [id number] Cmpnt Fem Kn Lt Cr Cmnt Prm Vngrd Intlk Implanted:Qty: 1 on 10/29/2022 by Elton Riggs MD at [facility] Left: Knee [employer] 06/18/2032 [id number] / / [id number] Tray Tib 83mm Kn Cocr I Beam Implanted:Qty: 1 on 10/29/2022 by Elton Riggs MD at [facility] Left: Knee [employer] 04/27/2030 [id number] / / [id number] Brng [id number] Vngrd Arcm Kn Ant Stab Implanted:Qty: 1 on 10/29/2022 by Elton Riggs MD at [facility] Left: Knee [employer] 02/23/2027 [id number] / / [id number] Procedures * XR KNEE LEFT 3VW(Performed 12/10/2022) Performed for Aftercare following left knee joint replacement surgery * HOME CPAP/BIPAP FOR HOSP USE: NOCTURNAL 02(Performed 10/29/2022) * ENDOTRACHEAL TUBE NOTE(Performed 10/29/2022) * NEURAXIAL BLOCK(Performed 10/29/2022) * NH TOTAL KNEE REPLACEMENT(Performed 10/29/2022) * EKG 12-LEAD(Performed 09/25/2022) Performed for Preoperative examination * COMPREHENSIVE METABOLIC PANEL(Performed 09/25/2022) Performed for Preoperative examination * CBC W AUTO DIFFERENTIAL(Performed 09/25/2022) Performed for Preoperative examination * XR KNEE BILAT 3VW(Performed 11/14/2021) Performed for Pain in both knees, unspecified chronicity Results * XR KNEE LEFT 3VW (12/10/2022 3:05 PM CDT) Anatomical Region Laterality Modality Lower Extremity Computed Radiogr aphy Narrative 12/10/2022 3:04 PM CDT Misa Bray, RT(R) ? 12/20/2022 ??6:08 PM See progress notes for results Elton Riggs MD DIAGNOSTIC IMAGING O RDERABLES * ETT LINE PERFORMABLE (10/29/2022 8:31 AM CDT) Narrative Elton Rai APRN-BOOK PACKER - 10/29/2022 8:31 AM CDT Elton Rai APRN-BOOK PACKER ? 10/29/2022 ??8:32 AM Endotracheal Tube Placement: ? Patient Location: OR. Intubation Event Date/Time: ??10/29/2022 7:28 AM Procedure: intubation (93149). Procedure Section: ?? Sedation: under general anesthesia. Indications for Airway Management: ??anesthesia Procedure pretreatments used? ??No Induction: modified rapid sequence Patient Position: ??supine Mask Ventilation: easy with oral airway. Blade Type: Video Blade Size: 3 Laryngoscopy View: grade 1 (full cords) Intubation Adjuncts: stylet and video laryngoscope (Joaquin used for ease of use) Tube: endotracheal tube Placement: oral Tube type: cuff - inflated Tube Size (MM): 8 Depth of Insertion (CM): 23 Measured From: lips Cuff volume (mL): ??6 Cuff Inflated With: air Number of Attempts: 1. Placement Verified By: direct visualization, bilateral breath sounds, chest auscultation and CO2 monitor Tube secured with: ??adhesive tape. Dentition unchanged? ??Yes Difficult Airway? ??No. Procedure Start Time: 10/29/2022 7:28 AM. Staff Section ? Anesthesia Provider: Elton Rai APRN-CRNA, Performed the procedure Additional Comments: Teeth, lips and oropharynx in preoperative condition . Sammy Hess DO GENERAL ANESTHESIA O RDERABLES * Neuraxial Block (10/29/2022 8:29 AM CDT) Narrative Elton Rai APRN-CRNA - 10/29/2022 8:29 AM CDT Elton Rai APRN-CRNA ? 10/29/2022 ??8:30 AM Neuraxial Block Note ?? Pre-Procedure: ?? Procedure Name: ??Neuraxial Block Patient Location: ??OR Indications: ??surgical anesthesia Pre-Anesthetic Checklist: ??Patient identified, IV Checked, Risks and benefits discussed, Surgical consent verified, Monitors and equipment, Site examined, Pre-op evaluation done, Time-out performed, Informed consent obtained, Questions answered/anesthesia questions answered and Allergies reviewed Anticoagulation/ Anti-thrombosis status confirmed? ??Yes Supplemental O2: ??room air Monitors: ??BP and continuous pluse ox Patient Condition: ??awake Patient Sedated? ??Yes ? Sedation Type: ??mild Procedure: ?? Block Type: ??Spinal Prep: ??Betadine Sterile Field: ??mask, cap/hat, sterile established and sterile gloves Approach: ??midline Skin was localized? ??Yes Spinal Block: ?? Needle Type: ??spinal needle Needle Gauge: ??22 Needle Length: ??90 mm Placement Site: ??L4-5 Number of Attempts: ??2 CSF: ??free flow Local anesthetics used? ??No Degree of difficulty: ??moderate Procedure Tolerance: ??tolerated well Sensory Level: ??other - please comment (pt claimed no response to injction) Motor Blockade: ??No Position post procedure: ??supine Vital Signs: ??Vital signs monitored and stable throughout. ??See anesthesia record for details. Staff: ?? Anesthesia Provider: ??Elton Rai APRN-CRNA ?? - ?? performed the procedure Sammy Hess DO GENERAL ANESTHESIA O RDERABLES * EKG 12-LEAD (09/25/2022 8:06 AM CDT) [facility] Signature Ventricular Rate 61 BPM [facility] Atrial Rate 61 BPM [facility] P-R Interval 194 ms [facility] QRS Duration ms 90 ms [facility] Q-T Interval ms 398 ms [facility] QTC Calculation (Bezet) 400 ms [facility] Calculated P [place] 60 degrees [facility] Calculated R [place] -6 degrees [facility] Calculated T [place] 21 degrees [facility] Interpretation EKG Normal sinus rhythm Low voltage QRS Borderline ECG No previous ECGs available Confirmed by YU SALAZAR MD ([id number]) on 09/25/2022 9:42:14 AM [facility] 09/25/2022 8:06 AM CDT 09/25/2022 9:42 AM CDT Vida Sherman DO ECG ORDERABLES [facility] * (ABNORMAL) CBC W AUTO DIFFERENTIAL (09/25/2022 7:56 AM CDT) WBC 4.4 4.4 - 10.7 x10E9/L 09/25/2022 8:07 AM CDT [facility] WBC Corrected 09/25/2022 8:07 AM CDT [facility] RBC 4.75 3.80 - 5.40 x10E12/L 09/25/2022 8:07 AM CDT [facility] Hemoglobin 14.6 12.0 - 17.6 gm/dL 09/25/2022 8:07 AM CDT [facility] Hematocrit 43.4 35.2 - 51.7 % 09/25/2022 8:07 AM CDT [facility] MCV 91.4 80.7 - 98.3 fl 09/25/2022 8:07 AM CDT [facility] MCH 30.7 26.7 - 34.0 pg 09/25/2022 8:07 AM CDT [facility] MCHC 33.6 30.8 - 35.9 gm/dL 09/25/2022 8:07 AM CDT [facility] Platelet Count 229 153 - 416 x10E9/L 09/25/2022 8:07 AM CDT [facility] RDW-CV 13.2 12.1 - 14.9 % 09/25/2022 8:07 AM CDT [facility] MPV 8.7(L) 9.4 - 12.9 fl 09/25/2022 8:07 AM CDT [facility] Neutrophils % 64.7 44.0 - 73.0 % 09/25/2022 8:07 AM CDT [facility] Lymphocytes % 19.2(L) 20.0 - 43.0 % 09/25/2022 8:07 AM CDT [facility] Monocytes % 9.5 5.0 - 13.0 % 09/25/2022 8:07 AM CDT [facility] Eosinophils % 4.8 0.0 - 6.0 % 09/25/2022 8:07 AM CDT [facility] Basophils % 1.1 0.0 - 2.0 % 09/25/2022 8:07 AM CDT [facility] Immature Granulocytes 0.7 0 - 1 % 09/25/2022 8:07 AM CDT [facility] Neutrophil Absolute 2.86 2.01 - 7.14 x10E9/L 09/25/2022 8:07 AM CDT [facility] Lymphocytes Absolute 0.85(L) 1.07 - 3.94 x10E9/L 09/25/2022 8:07 AM CDT [facility] Monocytes Absolute 0.42 0.26 - 1.07 x10E9/L 09/25/2022 8:07 AM CDT [facility] Eosinophils Absolute 0.21 0 - 0.47 x10E9/L 09/25/2022 8:07 AM CDT [facility] Basophils Absolute 0.05 0 - 0.08 x10E9/L 09/25/2022 8:07 AM CDT [facility] Immature Granulocytes Absolute 0.03 0.00 - 0.06 x10E9/L 09/25/2022 8:07 AM CDT [facility] nRBC Auto 0 /100 WBC 09/25/2022 8:07 AM CDT [facility] Blood BLOOD SPECIMEN / Unknown Venipuncture / Unknown 09/25/2022 7:56 AM CDT 09/25/2022 8:02 AM CDT Camilla Stevens SOFTWARE PRODUCT SPECIALIST-FULL STACK PYTHON DEVELOPER LAB - HEMATO LOGY ORDERABLES [facility] [address] [place] [address] * (ABNORMAL) COMPREHENSIVE METABOLIC PANEL (09/25/2022 7:56 AM CDT) [facility] Glucose 94 70 - 105 mg/dL 09/25/2022 8:20 AM CDT [facility] Sodium 140 136 - 145 mmol/L 09/25/2022 8:20 AM CDT [facility] Potassium 4.4 3.5 - 5.1 mmol/L 09/25/2022 8:20 AM CDT [facility] Chloride 107 98 - 107 mmol/L 09/25/2022 8:20 AM CDT [facility] CO2 25 23 - 31 mmol/L 09/25/2022 8:20 AM CDT [facility] Calcium 9.2 8.4 - 10.4 mg/dL 09/25/2022 8:20 AM CDT [facility] Anion Gap 8 8 - 18 mmol/L 09/25/2022 8:20 AM CDT [facility] BUN 24 8.4 - 25.7 mg/dL 09/25/2022 8:20 AM CDT [facility] Creatinine 1.27(H) 0.72 - 1.25 mg/dL 09/25/2022 8:20 AM CDT [facility] Alkaline Phosphatase 66 40 - 150 U/L 09/25/2022 8:20 AM CDT [facility] ALT 31 0 - 61 U/L 09/25/2022 8:20 AM CDT [facility] AST 19 5 - 34 U/L 09/25/2022 8:20 AM [facility] Protein Total 6.7 6.4 - 8.3 gm/dL 09/25/2022 8:20 AM CDT [facility] Albumin 4.3 3.2 - 4.6 gm/dL 09/25/2022 8:20 AM T [facility] Bilirubin Total 1.2 0.2 - 1.2 mg/dL 09/25/2022 8:20 AM [facility] eGFR by CKD-EPI 62(L) >=90 mL/min/1.7 3 m2 09/25/2022 8:20 AM [facility] Blood BLOOD SPECIMEN / Unknown Venipuncture / Unknown 09/25/2022 7:56 AM CDT 09/25/2022 8:02 AM CDT Camilla PLATTFULL STACK PYTHON DEVELOPER LAB - CHEMIS TRY ORDERABLES [facility] [address] [place] [address] * XR KNEE BILAT 3VW (11/14/2021 1:34 PM CDT) Anatomical Region Laterality Modality Lower Extremity Computed Radiogr aphy Narrative 11/14/2021 1:35 PM CDT Misa Bray RT(R) ? 11/29/2021 ??1:35 PM See progress notes for results Lynn Parmar PA-C DIAGNOSTIC IM AGING ORDERABLES Care Teams Leather Patcher Relationship Specialty Start Date End Date Kacey Lafleur APRN-CNP [id number], [address] [place] [address] PCP - General Nurse Practitioner Family 09/25/22
--- OUTSIDE RECORDS SUMMARY | 2024-04-11 05:32 | XMS_ITS | Encounter Summary ---
Author Organization [facility] Address [address] [place] [address] Care Team Providers Care Home Economist Consumer Service Name Role Phone Jennietemi Kacey NOYOLA-CHEMISTRY MANAGER Primary Care Provider + Encounter Details Date Type Department Care Team (Latest Contact Info) Description 11/16/2022 Travel Social History Tobacco Use Types Packs/Day Years [...] and heating? Not hard at all 10/30/2022 [facility] [place] of Occupat ional Health - Occupational Stress [...] place to sleep or slept in a assisted (including now)? No 10/30/2022 Sex and Gender [...] on filedocumented in this encounter Care Teams Home Economist Consumer Service Relationship Specialty Start Date End Date Kacey Lafleur APRN-KEI [id number], [address] [place] [id number] PCP - General Nurse Practitioner Family 09/25/22 documented as of this encounter
--- OUTSIDE RECORDS SUMMARY | 2024-04-11 05:33 | XMS_ITS | Encounter Summary ---
Author Organization [facility] Health Address [address] [place] [address] Care Team Providers Care Finance Controller Name Role Phone WongKacey martinez [place]-AUTOMATION TECHNOLOGIST Primary Care Provider + Reason for Visit * Auth/Cert (Routine) Specialty Diagnoses / Procedures Referred By Contac t Referred To Contact Referral ID Status Reason Start Date Expiration Date Visits Re quested Visits Authorized [id number] 1 1 Encounter Details Date Type Department Care Team (Latest Contact Info) Description 11/01/2022 9:35 AM CDT Home Care Visit [facility] at Home Home Health [address], [address] [place] [id number] Fifi Garcia, LEN PT INITIAL EVALUATION Social History Tobacco Use Types Packs/Day Years [...] and heating? Not hard at all 10/30/2022 [facility] [place] of Occupat ional Health - Occupational Stress [...] place to sleep or slept in a chcf (including now)? No 10/30/2022 Sex and Gender Information Value Date Recorded Sex Assigned at Male 11/11/2021 8:34 AM CDT Gender Identity Male 11/11/2021 8:34 AM CDT Sexual Orientation Straight 11/11/2021 8: 34 AM CDT COVID-19 Exposure Response Date Recorded In the last 10 days, have nicole u been in contact with someone who was confirmed or suspected to have Coronavirus/COVID-19? No / Unsure 11/01/2022 8:53 AM CDT documented as of this encounter Last Filed Vital Signs Vital Sign Reading Time Taken Comments Blood Pressure 128/86 11/01/2022 4:33 PM CDT Pulse 68 11/01/2022 4:33 PM CDT Temperature 36.5 ??C (97.7 ??F) 11/01/2022 4:33 PM CD T Respiratory Rate 17 11/01/2022 4:33 PM CDT Oxygen Saturation 98% 11/01/2022 4:33 PM CDT Inhaled Oxygen Concentration - - Weight - - Height - - Body Mass Index - - documented in this encounter Miscellaneous Notes * Home Health - Awilda-Fifi Hernandez, PT - 11/01/2022 4:17 PM CDT THE PATIENT HAS BEEN REFERRED TO HOME PT DUE TO S/P LEFT TOTAL KNEE REPLACEMENT BY DR. LEWIS ON 10/29/22. THE PATIENT WAS DC HOME ON 10/30/22. THE PATIENT WILL 11/19/22.THE PATIENT WAS GIVEN TWO 500 MGTYLENOL TO TAKE THREE TIMES PER DAY, OXYCODONE 5 MG ONE TABLET EVERY 6 HOURS. THE PATIENT LIVES IN ONE STORY HOME WITH FINISHE BASEMENT . TWO STEPS TO ENTER AND EXIT HOME. . LIVES WITH HIS WHO CAN ASSIST WHEN NEEDED. PMH: OA, STENT, HYPOTHYRODISM, HIGH CHOLESTEROL PLOF: INDEPENDENT WITH ALL ACTIVITIES, RETIRED. USED CANE DUE TO PAIN. DME: RW, CANE, SHOWER BENCH. Identified issues for follow up (not addressed in goals above): PHYSICAL THERAPY EVALUATION: PT EVAL TODAY WITH NEW THERAPY GOALS SET THIS DATE. THE PATIENT DEMONSTRATES THE FOLLOWING PROBLEMS: SKILLED CARE IS REQUIRED DUE TO 1. DECREASE ROM IN LE 2. DECREASE STRENGTH IN LE 3. DECREASE IN TRANSFER R SAFETY AND GAIT MOBILTY 4. INABILITY TO EXIT HOME SAFELY. 5. INABILITY TO DRESS SELF DUE TO LACK OF ROM IN KNEE 6. INCREASE IN PAIN DUE TO S/P TKR Therapeutic Interventions: SKILLED CARE PROVIDED FOR PHYSICAL THERAPY EVALUATION: INSTRUCTED AND PERFORMED SUPINE RLE PRES IN REPS OF 10 TIMES: ANKLE PUMPS, GLUTEAL SETS, QUAD SETS,HEEL SLIDES, HIP ABD, AND SHORT ARC QUAD. HANDOUTS PROVIDED OF THE SUPINE EXERCISES FOR HEP TO BE PERFORMED THREE TIMES PER DAY. THE PATIENT EDUCATED ON KEEPING LEG ELEVATED AT ALL TIMES EXCEPT WHEN EXERCISING AND WALKING. USE OF ICE EVERY HOUR DURING THE DAY FOR 20MINUTES TO HELP WITH PAIN CONTROL AND ELIMINATE SWELLING IN KNEE. REVIEWED SIGNS AND SYMPTOMS OF BLOOD CLOTS ; TO UTILIZE HIS RW AT ALL TIMES WHEN UP WALKING. PATIENT INSTRUCTION ON WHEN SILVER BANDAGE WILL BE REMOVED AND WHEN AUBRIE WILL BE REMOVED. PATIENT INSTRUCTED ON TRANSFER SAFETY AND GAIT SAFETY IN HOME TO HELP ELIMINATE ANY FALL RISK. Discharge Planning:THE PATIENT WILL BE DC TO SELF CARE ONCE ABLE TO SAFELY EXIT HOME INDEPENDENTLY homebound status: THE PATIENT IS MEETING HOME BOUND REQUIREMENTS DUE TO MD ORDERS TO KEEP LEG ELEVATED AT ALL TIMES AND USE OF ICE EVERY HOUR FOR 20 MINUTES TO HELP ELIMINATE ANY SWELLING AND PAIN DUE TO S/P TKR. ASSITANCE OF ONE TO EXIT HOME WITH USE OF ROLLING WALKER. PATIENT HAS BEEN INSTRUCTED ON HOW AND WHEN TO CALL AND CONTACT OFFICE WITH [facility] AND WHEN TO CALL Patient/caregiver response to treatment: PATIENT APPEARED TO HAVE GOOD UNDERSTANDING OF RECOMMENDATIONS FOR HOME CARE AND HEP. WOUND: SILVER DRESSING IN PLACE. MODERATE SWELLING, NO DRAINAGE. documented in this encounter Plan of Treatment Not on file documented as of this encounter Visit Diagnoses Not on filedocumented in this encounter Home Health Visit - Care Plan Visit Details Visit Type -PT Initial Evalu ation Discipline -Physical Therapy Problems Problem Description Start Date Status Goals Interve ntions X Additional Home Health Orders Disciplines: All Disciplines (HH/Hospice) 11/01/2022 Active 1 goal linked to scheduled/[facility] intervention 1 goal intervention scheduled/[facility] in this visit Gait Deficit Disciplines: PT (HH/Hospice) - Decreased [...] X Additional Home Health Orders Progressing No MET TO DATE Patient improves ambulation and quality of gait Description: - Improved household ambulation as evidenced by ambulation with independent without device level of assist and single point cane within 30 days. - Improved quality of gait as evidenced by INDEPENDENT WITH ADLS in 30 days. Gait Deficit Progressing No 50 FEET WITH USE OF RW IN HOME WITH STEP TO GAIT PATTERN. Patient maintains or increases range of motion without developing further contracture Description: - Increase range of motion of lower extremities to 115 degrees within 30 days. - Improve lower extremity function as evidenced by active range of motion of involved limb in 30 days. Decreased Range of Motion Progressing No 86 DEGREES WITH TODAYS ASSESSMENT Patient performs home exercise program Description: - Demonstrates good follow-through with progressive exercise program within 30 days. - Patient will be able to demonstrate home program within 30 days. - Patient will be able to perform home program with independent without device level of assist in 30 days. Home Exercise Program Progressing No HANDOUTS GIVEN TO THE PATIENT TO PERFORM THREE TIMES PER DAY Interventions Intervention Associated Problem/Goal Status Variance Visit Notes Additional Home Health Orders Description: - Assess vital signs and notify MD of significant changes. Problem:X Additional Home Health Orders Goal:Additional Home Health Orders Completed MET TO DATE Gait Deficit Description: Gait training. Problem:Gait Deficit Goal:Patient improves ambulation and quality of gait Completed INSTRUCTED AND PERFORMED GAIT TRAINING WITH USE OF RW WITH STEP TO GAIT PATTERN FOR 50 FEET INTERVASL. CUES TO IMPROVE WB ONTO LLE AND SWING PHASE OF GAIT. Decreased ROM Description: - Therapeutic exercise. - Establish home exercise program. Problem:Decreased Range of Motion Goal:Patient maintains or increases range of motion without developing further contracture Completed Completed this visit: Therapeutic exercise PT EVAL TODAY WITH NEW THERAPY GOALS SET THIS DATE. THE PATIENT DEMONSTRATES THE FOLLOWING PROBLEMS: SKILLED CARE IS REQUIRED DUE TO 1. DECREASE ROM IN LE 2. DECREASE STRENGTH IN LE 3. DECREASE IN TRANSFER R SAFETY AND GAIT MOBILTY 4. INABILITY TO EXIT HOME SAFELY. 5. INABILITY TO DRESS SELF DUE TO LACK OF ROM IN KNEE 6. INCREASE IN PAIN DUE TO S/P TKR Therapeutic Interventions: SKILLED CARE PROVIDED FOR PHYSICAL THERAPY EVALUATION: INSTRUCTED AND PERFORMED SUPINE RLE PRES IN REPS OF 10 TIMES: ANKLE PUMPS, GLUTEAL SETS, QUAD SETS, HEEL SLIDES, HIP ABD, AND SHORT ARC QUAD. HANDOUTS PROVIDED OF THE SUPINE EXERCISES FOR HEP TO BE PERFORMED THREE TIMES PER DAY. THE PATIENT EDUCATED ON KEEPING LEG ELEVATED AT ALL TIMES EXCEPT WHEN EXERCISING AND WALKING. USE OF ICE EVERY HOUR DURING THE DAY FOR 20MINUTES TO HELP WITH PAIN CONTROL AND ELIMINATE SWELLING IN KNEE. REVIEWED SIGNS AND SYMPTOMS OF BLOOD CLOTS ; TO UTILIZE HIS RW AT ALL TIMES WHEN UP WALKING. PATIENT INSTRUCTION ON WHEN SILVER BANDAGE WILL BE REMOVED AND WHEN AUBRIE WILL BE REMOVED. PATIENT INSTRUCTED ON TRANSFER SAFETY AND GAIT SAFETY IN HOME TO HELP ELIMINATE ANY FALL RISK. Discharge Planning:THE PATIENT WILL BE DC TO SELF CARE ONCE ABLE TO SAFELY EXIT HOME INDEPENDENTLY homebound status: THE PATIENT IS MEETING HOME BOUND REQUIREMENTS DUE TO MD ORDERS TO KEEP LEG ELEVATED AT ALL TIMES AND USE OF ICE EVERY HOUR FOR 20 MINUTES TO HELP ELIMINATE ANY SWELLING AND PAIN DUE TO S/P TKR. ASSITANCE OF ONE TO EXIT HOME WITH USE OF ROLLING WALKER. PATIENT HAS BEEN INSTRUCTED ON HOW AND WHEN TO CALL AND CONTACT OFFICE WITH [facility] AND WHEN TO CALL Patient/caregiver response to treatment: PATIENT APPEARED TO HAVE GOOD UNDERSTANDING OF RECOMMENDATIONS FOR HOME CARE AND HEP. WOUND: SILVER DRESSING IN PLACE. MODERATE SWELLING, NO DRAINAGE. Home Exercise Program Description: - Establish home exercise program. - Instruct Patient in home exercise program. Problem:Home Exercise Program Goal:Patient performs home exercise program Completed Completed this visit: Establish home exercise program PT EVAL TODAY WITH NEW THERAPY GOALS SET THIS DATE. THE PATIENT DEMONSTRATES THE FOLLOWING PROBLEMS: SKILLED CARE IS REQUIRED DUE TO 1. DECREASE ROM IN LE 2. DECREASE STRENGTH IN LE 3. DECREASE IN TRANSFER R SAFETY AND GAIT MOBILTY 4. INABILITY TO EXIT HOME SAFELY. 5. INABILITY TO DRESS SELF DUE TO LACK OF ROM IN KNEE 6. INCREASE IN PAIN DUE TO S/P TKR Therapeutic Interventions: SKILLED CARE PROVIDED FOR PHYSICAL THERAPY EVALUATION: INSTRUCTED AND PERFORMED SUPINE RLE PRES IN REPS OF 10 TIMES: ANKLE PUMPS, GLUTEAL SETS, QUAD SETS, HEEL SLIDES, HIP ABD, AND SHORT ARC QUAD. HANDOUTS PROVIDED OF THE SUPINE EXERCISES FOR HEP TO BE PERFORMED THREE TIMES PER DAY. THE PATIENT EDUCATED ON KEEPING LEG ELEVATED AT ALL TIMES EXCEPT WHEN EXERCISING AND WALKING. USE OF ICE EVERY HOUR DURING THE DAY FOR 20MINUTES TO HELP WITH PAIN CONTROL AND ELIMINATE SWELLING IN KNEE. REVIEWED SIGNS AND SYMPTOMS OF BLOOD CLOTS ; TO UTILIZE HIS RW AT ALL TIMES WHEN UP WALKING. PATIENT INSTRUCTION ON WHEN SILVER BANDAGE WILL BE REMOVED AND WHEN UABRIE WILL BE REMOVED. PATIENT INSTRUCTED ON TRANSFER SAFETY AND GAIT SAFETY IN HOME TO HELP ELIMINATE ANY FALL RISK. Discharge Planning:THE PATIENT WILL BE DC TO SELF CARE ONCE ABLE TO SAFELY EXIT HOME INDEPENDENTLY homebound status: THE PATIENT IS MEETING HOME BOUND REQUIREMENTS DUE TO MD ORDERS TO KEEP LEG ELEVATED AT ALL TIMES AND USE OF ICE EVERY HOUR FOR 20 MINUTES TO HELP ELIMINATE ANY SWELLING AND PAIN DUE TO S/P TKR. ASSITANCE OF ONE TO EXIT HOME WITH USE OF ROLLING WALKER. PATIENT HAS BEEN INSTRUCTED ON HOW AND WHEN TO CALL AND CONTACT OFFICE WITH [facility] AND WHEN TO CALL Patient/caregiver response to treatment: PATIENT APPEARED TO HAVE GOOD UNDERSTANDING OF RECOMMENDATIONS FOR HOME CARE AND HEP. WOUND: SILVER DRESSING IN PLACE. MODERATE SWELLING, NO DRAINAGE. documented in this encounter Care Teams Finance Controller Relationship Specialty Start Date End Date Kacey Lafleur APRN-KEI [address], [address] [place] [address] PCP - General Nurse Practitioner Family 09/25/22 documented as of this encounter
--- OUTSIDE RECORDS SUMMARY | 2024-04-11 05:33 | XMS_ITS | Encounter Summary ---
Author Organization [facility] Address [address] [place] [address] Care Team Providers Care Investment Analyst Name Role Phone Jennietemi Kacey NOYOLA-MULTI PURPOSE MACHINE OPERATOR Primary Care Provider + Reason for Visit * Reason Onset Date Comments Courtesy Visit 11/02/2022 Tuck in call Encounter Details Date Type Department Care Team (Late st Contact Info) Description 11/02/2022 Telephone [facility] at Home Scheduling [address] [place] [address] Anca Byrd Courtesy Visit (Tuck in call ) Social History Tobacco Use Types Packs/Day Years [...] and heating? Not hard at all 10/30/2022 [facility] [place] of Occupat ional Health - Occupational Stress [...] AM CDT documented as of this encounter Miscellaneous Notes * Telephone Encounter - Anca Byrd Artie - 11/02/2022 1:25 PM CDT Tuck-in Call: Spoke with: Radha How did everything go with your admission? Everything went well and I am pleased with the services so far. Now that you have had some time to think about our services, do you have any questions? No I don't have any right now. Do you have the resources you need if you have any issues? Yes I do Did the utilization review rn the ???call us first?? sheet? yes Do you have any questions?no Would you want a nurse to call you tomorrow?no Do you have our phone number to call us first? yes documented in this encounter Plan of Treatment Not on file documented as of this encounter Visit Diagnoses Not on filedocumented in this encounter Care Teams Investment Analyst Relationship Specialty Start Date End Date Kacey Lafleur APRN-MULTI PURPOSE MACHINE OPERATOR [address], [address] [place] [address] PCP - General Nurse Practitioner Family 09/25/22 documented as of this encounter
--- OUTSIDE RECORDS SUMMARY | 2024-04-11 05:33 | XMS_ITS | Encounter Summary ---
Author Organization [facility] Address [address] [facility] [place] [address] Care Team Providers Care [place] Former Machine Operator Name Role Phone Jennietemi Kacey NOYOLA-GENETIC SUPERVISOR Primary Care Provider + Encounter Details Date Type Department Care Team (Latest Contact Info) Description 11/12/2022 Travel Social History Tobacco Use Types Packs/Day [...] and heating? Not hard at all 10/30/2022 [facility] of Occupat ional Health - Occupational Stress [...] place to sleep or slept in a halfway (including now)? No 10/30/2022 Sex and Gender [...] on filedocumented in this encounter Care Teams [place] Former Machine Operator Relationship Specialty Start Date End Date Kacey Lafleur APRN-KEI [address], [address] [place] [address] PCP - General Nurse Practitioner Family 09/25/22 documented as of this encounter
--- OUTSIDE RECORDS SUMMARY | 2024-04-11 05:33 | XMS_ITS | Encounter Summary ---
Author Organization [facility] Address [address] [facility] [address] Care Team Providers Care Hand Drawer In Name Role Phone Kacey Lafleur Primary Care Provider + Encounter Details Date Type Department Care Team (Late st Contact Info) Description 10/10/[address] [facility] Outpatient Visit [facility] [address] [place] [address] [place] [address] [place] [address] Social History Tobacco Use Types Packs/Day Years Used Date Smoking Tobacco: Never Smokeless Tobacco: Never Alcohol Use Standard Drinks/Week Comments Not Currently 0 (1 standard drink = 0.6 oz pur e alcohol) Sex and Gender Information Value Date Recorded Sex Assigned at Male 11/11/2021 8:34 AM CDT Gender Identity Male 11/11/2021 8:34 AM CDT Sexual Orientation Straight 11/11/2021 8: 34 AM CDT COVID-19 Exposure Response Date Recorded In the last 10 days, have yo u been in contact with someone who was confirmed or suspected to have Coronavirus/COVID-19? No / Unsure 09/17/2022 1:12 PM CDT documented as of this encounter Plan of Treatment Not on file documented as of this encounter Visit Diagnoses Not on filedocumented in this encounter Care Teams Hand Drawer In Relationship Specialty Start Date End Date Kacey Lafleur APRN-CNP [address] [place] [address] PCP - General Nurse Practitioner Family 09/25/22 documented as of this encounter
--- OUTSIDE RECORDS SUMMARY | 2024-04-11 05:33 | XMS_ITS | Encounter Summary ---
Author Organization [facility] Address [address] [place] [address] Care Team Providers Care Cell Phone Repair Technician Name Role Phone Paul Ruiz MD Primary Care Provider [phone] Reason for Referral * OP/Amb RFL Auth (Routine) - Closed Specialty Diagnoses / Procedures Referred By Contac t Referred To Contact Diagnoses Primary osteoarthritis of left knee Procedures AR DRAIN/INJECT LARGE JOINT/BURSA Carlton Mayo PA-C [address] [facility] [address] [place] [id number] Referral ID Status Reason Start Date Expiration Date Visits Re quested Visits Authorized [id number] Closed 07/05/2022 07/05/2023 1 1 Reason for Visit * Reason Comments Follow-up RV for the left knee . left knee was injected with 3 cc Lidocaine and 1cc of 80 mg Depo-Medrol on 04/05/22 Encounter Details Date Type Department Care Team (Latest Contact Info) Description 07/05/2022 10:00 AM CDT Office Visit [facility] [address] [facility] [address] [address] Carlton Mayo PA-C [address] [facility] [address] [address] Primary osteoarthritis of left knee (Primary Dx) Social History Tobacco Use Types Packs/Day Years Used Date Smoking Tobacco: Never Smokeless Tobacco: Never Sex and Gender Information Value Date Recorded Sex Assigned at Male 11/11/2021 8:34 AM CDT Gender Identity Male 11/11/2021 8:34 AM CDT Sexual Orientation Straight 11/11/2021 8: 34 AM CDT documented as of this encounter Progress Notes * Carlton Mayo PA-C - 07/05/2022 10:22 AM CDT djd mjl cs injj , ailyn legft f/u with w[facility] * Irma Price MA - 07/05/2022 9:47 AM CDT RV for the left knee . left knee was injected with 3 cc Lidocaine and 1 cc of 80 mg Depo-Medrol on 04/05/22 documented in this encounter H&P Notes * Carlton Mayo PA-C - 07/13/2022 2:57 AM CDT DATE OF SERVICE: 07/05/2022 SUBJECTIVE: Patient is here at the office for the left knee and would like to get the left knee injected today and move forward with a left knee replacement. He has had an injection back in March. It is only helping out for a short period of time. CLINICAL EXAM: Excellent range of motion of the hip. He does have some, what looks like, vitiligo on his left leg, but no evidence of any infection. He has a varus knee with significant medial and lateral joint line crepitation, clicking, and mid flexion instability. RADIOGRAPHS: X-rays show anod-op-aaup degenerative change along that left medial joint line and in the patellofemoral joint. IMPRESSION: Degenerative joint disease, left knee, failing conservative treatment. PLAN: Under sterile preparation, injected the left knee today with 3 cc lidocaine and 1 cc of 80 mg Depo-Medrol. Patient tolerated the procedure well. We are going to move forward with a left knee replacement. Discussed with him surgical procedure, risks, complications, and postoperative expectations associated with it. MARY JO MedranoD/MedQ #: [id number] cc: Paul Ruiz documented in this encounter Plan of Treatment Not on file documented as of this encounter Visit Diagnoses Diagnosis Primary osteoarthritis of left knee- Primary Primary localized osteoarthrosis, lower leg documented in this encounter Administered Medications Inactive Administered Medications - up to 3 most recent administrations Medication Order MAR Action Action Date Dose Rate Site lidocaine PF (Xylocaine MPF) 1 % injection 3 mL 3 mL, Intra-articular, ONCE, 1 dose, On [place] 07/05/22 at 1045 $ Given 07/05/2022 10:41 AM CDT 3 mL Left Knee methylPREDNISolone acetate (DEPO-Medrol) injection 80 mg 80 mg, Intra-articular, ONCE, 1 dose, On [place]ul[place] 07/05/22 at 1045 $ Given 07/05/2022 10:41 AM CDT 80 mg Left Knee documented in this encounter Care Teams Cell Phone Repair Technician Relationship Specialty Start Date End Date Paul Ruiz MD [address] [place] [address] PCP - General Family Medicine 11/14/21 09/24/22 documented as of this encounter
--- OUTSIDE RECORDS SUMMARY | 2024-04-11 05:33 | XMS_ITS | Encounter Summary ---
Author Organization [facility] Address [address] [facility] [place] [place] [address] Care Team Providers Care Mutuel Teller Name Role Phone Jennietemi Kacey NOYOLA-LIFT TEAM TECHNICIAN Primary Care Provider + Encounter Details Date Type Department Care Team (Latest Contact Info) Description 11/08/2022 Travel Social History Tobacco Use Types Packs/Day [...] and heating? Not hard at all 10/30/2022 [facility] [place] of Occupat ional Health - Occupational Stress [...] suspected to have Coronavirus/COVID-19? No / Unsure 11/08/2022 8:34 AM CDT documented as of this encounter Plan of Treatment Not on file documented as of this encounter Visit Diagnoses Not on filedocumented in this encounter Care Teams Mutuel Teller Relationship Specialty Start Date End Date Kacey Lafleur APRN-KEI [address], [address] [place] [address] PCP - General Nurse Practitioner Family 09/25/22 documented as of this encounter
--- OUTSIDE RECORDS SUMMARY | 2024-04-11 05:33 | XMS_ITS | Encounter Summary ---
Author Organization [facility] Address [address] [facility] [place] [address] Care Team Providers Care Jail Officer Name Role Phone Jennietemi Kacey NOYOLA-SHACKLER Primary Care Provider + Encounter Details Date Type Department Care Team (Latest Contact Info) Description 11/06/2022 Travel Social History Tobacco Use Types Packs/Day [...] and heating? Not hard at all 10/30/2022 [facility] [place] of Occupat ional Health - Occupational Stress [...] suspected to have Coronavirus/COVID-19? No / Unsure 11/06/2022 8:54 AM CDT documented as of this encounter Plan of Treatment Not on file documented as of this encounter Visit Diagnoses Not on filedocumented in this encounter Care Teams Jail Officer Relationship Specialty Start Date End Date Kacey Lafleur APRN-KEI [address], [address] [place] [address] PCP - General Nurse Practitioner Family 09/25/22 documented as of this encounter
--- OUTSIDE RECORDS SUMMARY | 2024-04-11 05:33 | XMS_ITS | Encounter Summary ---
Author Organization [facility] Health Address [address] [place] [address] Care Team Providers Care Zigzag Stitcher Name Role Phone WongKacey martinez DENNYS-DRILL PUNCH OPERATOR Primary Care Provider + Reason for Visit * Auth/Cert (Routine) Specialty Diagnoses / Procedures Referred By Contac t Referred To Contact Referral ID Status Reason Start Date Expiration Date Visits Re quested Visits Authorized [id number] 1 1 Encounter Details Date Type Department Care Team (Late st Contact Info) Description 11/08/2022 8:00 AM CDT Home Care Visit [facility] Health at Home Home Health [address] [place] [phone] Fifi Garcia, LEN PT HOME VISIT Social [...] and heating? Not hard at all 10/30/2022 [facility] [place] of Occupat ional Health - Occupational Stress [...] Sign Reading Time Taken Comments Blood Pressure 142/82 11/08/2022 12:40 PM CDT Pulse 72 11/08/2022 12:40 PM CDT Temperature 36.4 ??C (97.5 ??F) 11/08/2022 12:40 PM C DT Respiratory Rate 17 11/08/2022 12:40 PM CDT Oxygen Saturation 99% 11/08/2022 12:40 PM CDT Inhaled Oxygen Concentration - - Weight - - Height - - Body Mass Index - - documented in this encounter Miscellaneous Notes * Home Health - Fifi Garcia, PT - 11/08/2022 12:37 PM CDT PATIENT CONTINUES TO HAVE DRAINAGE FROM MEDIAL KNEE DRAIN SITE. THE PATIENT STATES THAT HE IS SOAKING THROUGH BANDAID EVERY 6-8 HOURS. HAS BEEN KEEPING IT CLEAN. SURGICAL INCISION IS NOT DRAINING AND IS HEALING WELL. I SPOKE WITH ERICA KIRKLAND AT DR. GUERRA OFFICE, SHE ADVISED TO KEEP IT COVERED AND CLEAN AND TO USE WILDER WRAP TO HELP WITH COMPRESSION . SHE WANTS TO BE NOTIFIED ON STATUS OF DRAINAGE SITE ON NEXT VISIT. PATIENT HAS BEEN ADVISED TO CALL AGENCY TO LET US KNOW IF DRAINAGE INCREASES ON SITE. PATIENT IS DUE TO SEE MD ON 11/19/22. PATIENT AND ARE AWARE OF RECOMMENDATIONS. documented in this encounter Plan of Treatment [...] visit Decreased Range of Motion Disciplines: PT (HH/Hospice) Decreased range of motion in lower extremities related to LTK 11/01/2022 Active 1 goal linked to scheduled/[facility] [place] intervention 1 goal intervention scheduled/[facility] [place] in this visit Home Exercise Program Disciplines: PT (HH/Hospice) Requires instruction of home program for therapeutic [...] in 30 days. Gait Deficit Progressing No independent with gait in home with use of cane for short distances. Patient maintains or increases range of motion without developing further contracture Description: - Increase range of motion of lower extremities to 115 degrees within 30 days. - Improve lower extremity function as evidenced by active range of motion of involved limb in 30 days. Decreased Range of Motion Progressing No -8-97 degrees with todays assessment Patient performs home exercise program Description: - Demonstrates good follow-through with progressive exercise program within 30 days. - Patient will be able to demonstrate home program within 30 days. - Patient will be able to perform home program with independent without device level of assist in 30 days. Home Exercise Program Progressing No compliance with current hep is noted Interventions Intervention Associated Problem/Goal Status Variance Visit Notes Additional Home Health Orders Description: - Assess vital signs and notify MD of significant changes. Problem:X Additional Home Health Orders Goal:Additional Home Health Orders Completed met to date Gait Deficit Description: Gait training. Problem:Gait Deficit Goal:Patient improves ambulation and quality of gait Completed instructed and performed gait training with use of cane in home for 150 feet intervals with min vcs for improving step through gait. Decreased ROM Description: - Therapeutic exercise. - Establish home exercise program. Problem:Decreased Range of Motion Goal:Patient maintains or increases range of motion without developing further contracture Completed Completed this visit: Therapeutic exercise instructed and performed pres in reps of 10 times : supine: ap, gs, qs, heel slides with strap assit, hip abd, short arc quad. sitting: long arc quad, sitting sitting knee flexion stretch, both in reps of 10 times. standing with support of the walker: standing heel raises in reps of 10 times, hip flexion and knee flexion. added knee hang for2 minutes 15 seconds. Home Exercise Program Description: - Establish home exercise program. - Instruct Patient in home exercise program. Problem:Home Exercise Program Goal:Patient performs home exercise program Completed Completed this visit: Upgrade home exercise program instructed and performed pres in reps of 10 times : supine: ap, gs, qs, heel slides with strap assit, hip abd, short arc quad. sitting: long arc quad, sitting sitting knee flexion stretch, both in reps of 10 times. standing with support of the walker: standing heel raises in reps of 10 times, hip flexion and knee flexion. added knee hang for2 minutes 15 seconds. documented in this encounter Care Teams Zigzag Stitcher Relationship Specialty Start Date End Date Kacey Lafleur APRN-DRILL PUNCH OPERATOR [address], [address] [place] [address] PCP - General Nurse Practitioner Family 09/25/22 documented as of this encounter
--- OUTSIDE RECORDS SUMMARY | 2024-04-11 05:33 | XMS_ITS | Encounter Summary ---
Author Organization [facility] Address [address] [facility] [place] [address] Care Team Providers Care Returned Item Clerk Name Role Phone Paul Ruiz MD Primary Care Provider [phone] [phone] Reason for Referral * OP/Amb RFL Auth (Routine) - Closed Specialty Diagnoses / Procedures Referred By Contac t Referred To Contact Diagnoses Primary osteoarthritis of left knee Procedures WA DRAIN/INJECT LARGE JOINT/[place] [address] [address] [address] Referral ID Status Reason Start Date Expiration Date Visits Re quested Visits Authorized [id number] Closed 11/14/2021 11/14/2022 1 1 Reason for Visit * Reason Comments Establish Care New patient, Bilater al knee pain., Encounter Details Date Type Department Care Team (Latest Contact Info) Description 11/14/2021 1:10 PM CDT Office Visit [facility] [id number] [place] [phone] [place] [address] [address] [address] Primary osteoarthritis of left knee (Primary Dx); Pain in both knees, unspecified chronicity Social History Tobacco Use Types Packs/Day Years Used Date Smoking Tobacco: Never Smokeless Tobacco: Never Sex and Gender Information Value Date Recorded Sex Assigned at Male 11/11/2021 8:34 AM CDT Gender Identity Male 11/11/2021 8:34 AM CDT Sexual Orientation Straight 11/11/2021 8: 34 AM CDT documented as of this encounter Last Filed Vital Signs Vital Sign Reading Time Taken Comments Blood Pressure - - Pulse - - Temperature - - Respiratory Rate - - Oxygen Saturation - - Inhaled Oxygen Concentration - - Weight 115.7 kg (255 lb) 11/14/2021 1:30 PM CDT Height 182.9 cm (6') 11/14/2021 1:30 PM CDT Body Mass Index 34.58 11/14/2021 1:30 PM CDT documented in this encounter Progress Notes * Elton Riggs MD - 11/14/2021 2:04 PM CDT DJD left knee - near DENISSE On blood thinners from [facility] * Ludy Bruno - 11/14/2021 1:30 PM CDT New patient, Bilateral knee pain., documented in this encounter H&P Notes * Elton Riggs MD - 11/23/2021 3:07 PM CDT DATE OF SERVICE: 11/14/2021 SUBJECTIVE: Radha presents to the office today, 66-year-old with bilateral left greater than right knee pain, increasingly severe for the past 3-4 months. He slipped going down some steps and aggravated the left knee. The patient has a history of coronary artery disease, sleep apnea. OBJECTIVE: He is 5 feet tall, 255 pounds. He has pain free range of motion of both hips. HIs left knee has some mild varus instability. He has pain over the medial joint line. X-RAYS: X-rays demonstrate near [id number] changes of the medial joint line with varus deformity of the left knee and large posterior loose bodies as well as some anterior loose bodies. TREATMENT: At this point, the patient underwent a corticosteroid injection in the anteromedial joint line of the left knee with 3 cc Lidocaine and 1 cc of 80 mg Kenalog. Patient tolerated the procedure well. We are going to see him back in the office in 6 weeks to evaluate his improvement. Elton Riggs M.D. WCS/MedQ #: [id number] cc: Luz Maria Ruiz M.D. documented in this encounter Procedure Notes * Misa Bray RT(R) - 11/14/2021 1:35 PM CDTAssociated Order(s): XR KNEE BILAT 3VW See progress notes for results documented in this encounter Plan of Treatment Not on file documented as of this encounter Procedures Procedure Name Priority Date/Time Associated Diagnosis Comments XR KNEE BILAT 3VW Routine 11/14/2021 1:3 4 PM CDT Pain in both knees, unspecified chronicity documented in this encounter Results * XR KNEE BILAT 3VW (11/14/2021 1:34 PM CDT) Anatomical Region Laterality Modality Lower Extremity Computed Radiogr aphy Narrative 11/14/2021 1:35 PM CDT Misa Bray RT(R) ? 11/29/2021 ??1:35 PM See progress notes for results Lynn Parmar PA-C DIAGNOSTIC IM AGING ORDERABLES documented in this encounter Visit Diagnoses Diagnosis Primary osteoarthritis of left knee- Primary Primary localized osteoarthrosis, lower leg Pain in both knees, unspecified chronicity Pain in both knees, unspecified chronicity documented in this encounter Administered Medications Inactive Administered Medications - up to 3 most recent administrations Medication Order MAR Action Action Date Dose Rate Site lidocaine PF (Xylocaine MPF) 1 % injection 3 mL 3 mL, Intra-articular, ONCE, 1 dose, On Sat11/14/21 at 1415 $ Given 11/14/2021 4:07 PM CDT 3 mL Left Knee triamcinolone acetonide (Kenalog-40) injection 80 mg 80 mg, Intra-articular, ONCE, 1 dose, On Sat11/14/21 at 1415, Shake well before using. $ Given 11/14/2021 4:07 PM CDT 80 mg Left Knee documented in this encounter Care Teams Returned Item Clerk Relationship Specialty Start Date End Date Paul Ruiz MD [address] [place] [address] PCP - General Family Medicine 11/14/21 09/24/22 documented as of this encounter
--- OUTSIDE RECORDS SUMMARY | 2024-04-11 05:33 | XMS_ITS | Encounter Summary ---
Author Organization [facility] Address [address] [facility] [place] [address] Care Team Providers Care Tribunal Member Name Role Phone Jennietemi Kacey NOYOLA-DOG DAYCARE PROVIDER Primary Care Provider + Encounter Details Date Type Department Care Team (Latest Contact Info) Description 11/01/2022 Travel Social History Tobacco Use Types Packs/Day [...] and heating? Not hard at all 10/30/2022 [facility] [place] of Occupat ional Health - Occupational Stress [...] place to sleep or slept in a fpc (including now)? No 10/30/2022 Sex and Gender [...] on filedocumented in this encounter Care Teams Tribunal Member Relationship Specialty Start Date End Date Kacey Lafleur APRN-KEI [address], [address] [place] [address] PCP - General Nurse Practitioner Family 09/25/22 documented as of this encounter
--- OUTSIDE RECORDS SUMMARY | 2024-04-11 05:33 | XMS_ITS | Encounter Summary ---
Author Organization [facility] Address [address] [facility] [place] [address] Care Team Providers Care Seamstress Fitter Name Role Phone WongKacey martinez DENNYS-ENROLLMENT SERVICES VICE PRESIDENT Primary Care Provider + Reason for Visit * Reason Comments Follow-up Pre op L TKA 10-29-22 Encounter Details Date Type Department Care Team (Latest Contact Info) Description 09/25/2022 2:30 PM CDT Office Visit [facility] [address] [place] [id number] [place] [address] [address] Primary osteoarthritis of left knee (Primary Dx) [...] PM CDT documented as of this encounter Progress Notes * Carlton Mayo PA-C - 09/25/2022 2:06 PM CDT djd left knee skin pigmentation ailyn for tka 10-29 * Hiro Agustin MA - 09/25/2022 1:37 PM CDT Chief Complaint Patient presents with ??? Follow-up Pre op L TKA 10-29-22 documented in this encounter H&P Notes * Carlton Mayo PA-C - 10/04/2022 7:38 AM CDT DATE OF SERVICE: 09/25/2022 HISTORY: Mr. Zhang is here at the office for the left knee. He is scheduled for surgery on the 29 of October. CLINICAL EXAMINATION: Varus knee, medial and lateral joint line crepitation, clicking, and mid flexion instability. Motion 4 to 118. RADIOGRAPHS: X-rays show dyrs-bt-[id number] degenerative change along the right medial joint line and in the patellofemoral joint. IMPRESSION: Degenerative joint disease, right knee, failing conservative treatment. PLAN: At this point in time, we are going to move forward with a right knee replacement, discussed with him surgical procedure, risks, complications, and postoperative expectations. Dr. Riggs agrees with this examination, evaluation, and treatment plan. MARY JO Medrano M.D. CARLAD/MedQ #: [id number] documented in this encounter Plan of Treatment Not on file documented as of this encounter Visit Diagnoses Diagnosis Primary osteoarthritis of left knee- Primary Primary localized osteoarthrosis, lower leg documented in this encounter Care Teams Seamstress Fitter Relationship Specialty Start Date End Date Kacey Lafleur, SIMULATION ENGINEER-ENROLLMENT SERVICES VICE PRESIDENT [address], [address] [place] [address] PCP - General Nurse Practitioner Family 09/25/22 documented as of this encounter
--- OUTSIDE RECORDS SUMMARY | 2024-04-11 05:33 | XMS_ITS | Encounter Summary ---
Author Organization [facility] Address [address] [facility] [place] [address] Care Team Providers Care Pigment Mixer Name Role Phone Paul Ruiz MD Primary Care Provider [phone] Encounter Details Date Type Department Care Team (Latest Contact Info) Description 09/17/2022 Travel Social History Tobacco Use Types Packs/Day [...] on filedocumented in this encounter Care Teams Pigment Mixer Relationship Specialty Start Date End Date Paul Ruiz MD [address] [place] [address] PCP - General Family Medicine 11/14/21 09/24/22 documented as of this encounter
--- OUTSIDE RECORDS SUMMARY | 2024-04-11 05:33 | XMS_ITS | Encounter Summary ---
Author Organization [facility] Health Address [address] [place] [address] Care Team Providers Care Freelance Digital Project Manager Name Role Phone WongKacey martinez DENNYS-CLINICAL IMPLEMENTATION SPECIALIST Primary Care Provider + Reason for Visit * Auth/Cert (Routine) Specialty Diagnoses / Procedures Referred By Contac t Referred To Contact Referral ID Status Reason Start Date Expiration Date Visits Re quested Visits Authorized [id number] 1 1 Encounter Details Date Type Department Care Team (Late st Contact Info) Description 11/12/2022 12:45 PM CDT Home Care Visit [facility] Health at Home Home Health [address], [address] [place] [phone] Fifi Garcia, LEN PT HOME VISIT Social [...] hard at all 10/30/2022 [facility] [place] of Occupat ional Health - Occupational Stress [...] place to sleep or slept in a care home (including now)? No 10/30/2022 Sex and [...] Sign Reading Time Taken Comments Blood Pressure 132/78 11/12/2022 1:32 PM CDT Pulse 72 11/12/2022 1:32 PM CDT Temperature 36.6 ??C (97.8 ??F) 11/12/2022 1:32 PM CD T Respiratory Rate 17 11/12/2022 1:32 PM CDT Oxygen Saturation 98% 11/12/2022 1:32 PM CDT Inhaled Oxygen Concentration - - [...] in this visit Gait Deficit Disciplines: PT (/Hospice) - Decreased [...] Health Orders Progressing No met to date infection report filled out due to new antibiotic started on 11/08/22 for 10 days for possible left knee infection due to drainage. Patient improves ambulation and quality of gait Description: - Improved household ambulation as evidenced by ambulation with independent without device level of assist and single point cane within 30 days. - Improved quality of gait as evidenced by INDEPENDENT WITH ADLS in 30 days. Gait Deficit Progressing No independent wtih gait in home with use of cane Patient maintains or increases range of motion without developing further contracture Description: - Increase range of motion of lower extremities to 115 degrees within 30 days. - Improve lower extremity function as evidenced by active range of motion of involved limb in 30 days. Decreased Range of Motion Progressing No -7-105 degrees with todays assessment Patient performs home [...] performed gait training with use of cane to descend and then ascend steps with use of cane and one handrail. descended 15 steps and then ascended 15 steps with cga times one. Decreased ROM Description: - Therapeutic [...] knee flexion, hip abd added knee hang for4 minutes 15 seconds. Home Exercise Program Description: - Establish home exercise program. - Instruct Patient in home exercise program. Problem:Home Exercise Program Goal:Patient performs home exercise program Completed Completed this visit: Upgrade home exercise program added standing hip abd.and increase in knee hang today documented in this encounter Care Teams Freelance Digital Project Manager Relationship Specialty Start Date End Date Kacey Lafleur APRN-CLINICAL IMPLEMENTATION SPECIALIST [address], [address] [place] [address] PCP - General Nurse Practitioner Family 09/25/22 documented as of this encounter
--- OUTSIDE RECORDS SUMMARY | 2024-04-11 05:33 | XMS_ITS | Encounter Summary ---
Author Organization [facility] Address [address] [place] [address] Care Team Providers Care Sr Account Executive Name Role Phone Paul Ruiz MD Primary Care Provider [phone] [phone] Reason for Visit * Reason Onset Date Comments Medication Issue 04/17/2022 Refill Request 04/17/2022 Encounter Details Date Type Department Care Team (Late st Contact Info) Description 04/17/2022 Refill [facility] [address] [facility], [address] [address] Carlton Mayo PA-C [address] [address] Medication Issue; Refill Request Social History Tobacco Use Types Packs/Day Years Used Date Smoking Tobacco: Never Smokeless Tobacco: Never Sex and Gender Information Value Date Recorded Sex Assigned at Male 11/11/2021 8:34 AM CDT Gender Identity Male 11/11/2021 8:34 AM CDT Sexual Orientation Straight 11/11/2021 8: 34 AM CDT documented as of this encounter Miscellaneous Notes * Telephone Encounter - Ludy Bruno - 04/17/2022 4:09 PM CST Meloxicam refill has been sent to Carlton Mayo PAC for authorization. It will be sent electronically to [facility] once signed. [employer] AND EMPLOYMENT PARALEGAL * Telephone Encounter - Martha Euceda LPN - 04/17/2022 2:29 PM CST Pt called stating he was seen by Carlton RÍOS 04/05/22, he was told Mobic would be sent to his pharmacy and they have never received anything. [facility] [phone] [employer] AND EMPLOYMENT PARALEGAL documented in this encounter Plan of Treatment Not on file documented as of this encounter Visit Diagnoses Not on filedocumented in this encounter Care Teams Sr Account Executive Relationship Specialty Start Date End Date Paul Ruiz MD [address] [place] [address] PCP - General Family Medicine 11/14/21 09/24/22 documented as of this encounter
--- OUTSIDE RECORDS SUMMARY | 2024-04-11 05:33 | XMS_ITS | Encounter Summary ---
Author Organization [facility] Address [address] [facility] [place] [address] Care Team Providers Care Director Correctional Agency Name Role Phone WnogKacey martinez DENNYS-MUFFLE OPERATOR Primary Care Provider + Encounter Details Date Type Department Care Team (Late st Contact Info) Description 11/08/2022 Orders Only [facility] Phys Standard [address] [place] [address] [place] [address] [facility] [address] [place] [address] Social History Tobacco Use Types Packs/Day Years [...] and heating? Not hard at all 10/30/2022 [facility] [place] of Occupat ional Health - Occupational Stress [...] AM CDT documented as of this encounter Patient Instructions * Patient Instructions* Kimberly Thomas RN - 11/08/2022 4:06 PM CDT Spoke [facility] and patient has been having drainage from small area medial to incision. Drainage is serous. Spoke with Dr Riggs and he ordered Keflex mg tid for 10 days. Spoke with patient and he will put jessica wrap around that part of incision and [facility] will follow up with wound observation. He has appointment in about one week. Will call back with any problems or concerns documented in this encounter Plan of Treatment Not on file documented as of this encounter Visit Diagnoses Not on filedocumented in this encounter Care Teams Director Correctional Agency Relationship Specialty Start Date End Date Kacey Lafleur APRN-MUFFLE OPERATOR [address], [address] [place] [address] PCP - General Nurse Practitioner Family 09/25/22 documented as of this encounter
--- OUTSIDE RECORDS SUMMARY | 2024-04-11 05:33 | XMS_ITS | Encounter Summary ---
Author Organization [facility] Address [address] [place] [address] Care Team Providers Care Corporate Event Planner Name Role Phone WongKacey martinez [employer] Primary Care Provider + Reason for Visit * Auth/Cert (Routine) Specialty Diagnoses / Procedures Referred By Contac t Referred To Contact Procedures ARTHROPLASTY TOTAL KNEE Referral ID Status Reason Start Date Expiration Date Visits Re quested Visits Authorized [id number] 1 1 Encounter Details Date Type Department Care Team (Late st Contact Info) Description 10/29/2022 7:00 AM CDT - 10/29/2022 9:20 AM CDT Surgery [facility] - Perioperative Surgery [address] [place] [address] [place] [address] [facility] [address] [place] [address] ARTHROPLASTY LEFT TOTAL KNEE Surgery Details Date/Time Status Location OR Service Patient Class Case Class Case Type Trauma Case? 10/29/2022 7:00 AM Posted [facility] MAIN OR OR 12 Orthopedics Surgery Day Care Over Night Elective > 5 days Panel 1 Procedure LRB Anes Op Region Wound Class Comments ARTHROPLASTY LEFT TOTAL KNEE Left Spinal to General Kne e Clean Surgeon Surgeon Role Service Panel Elton Riggs MD Primary Orthopedics 1 Special Needs BIOMET (MICHELA) NOTIFIED-NB documented in this encounter Social History Tobacco Use Types Packs/Day Years [...] and heating? Not hard at all 10/30/2022 [facility] - Occupational Stress [...] place to sleep or slept in a correction (including now)? No 10/30/2022 Sex and Gender [...] PM CDT documented as of this encounter Last Filed Vital Signs Vital Sign Reading Time Taken Comments Blood Pressure 145/95 10/29/2022 9:15 AM CDT Pulse 61 10/29/2022 9:15 AM CDT Temperature 36.7 ??C (98 ??F) 10/29/2022 8:49 AM CDT Respiratory Rate 13 10/29/2022 9:15 AM CDT Oxygen Saturation 99% 10/29/2022 9:15 AM CDT Inhaled Oxygen Concentration - - Weight 124 kg (273 lb 6.4 oz) 10/29/2022 6:21 AM CDT Height 182.9 cm (6') 10/29/2022 6:21 AM CDT stat ed Body Mass Index 37.08 10/29/2022 6:21 AM CDT documented in this encounter Discharge Summaries * Kayode Robles RN - 10/30/2022 12:10 PM CDT Discharged around 1210 All VSS SR up x 2 Placed call light within reach Needs attended Free from falls Pain managed with Kahlil A and O x 4 Silver dressing is clean dry and intact Home instructions were given and verbalizes understanding Discharged to home health * Skye Silvestre RN - 10/30/2022 11:26 AM CDT Physician Discharge Summary Patient Name: Radha Zhang Date of : 1955 Admit date: 10/29/2022 Discharge date: Admitting Physician: Elton Riggs MD Attending Physician: Elton Riggs MD Discharge Physician: Elton Riggs MD Admission Diagnosis: Degenerative joint disease, left knee. Past Medical History Past Medical History: Diagnosis Date ??? Atherosclerosis of coronary artery ??? Disorder of thyroid hypothyroid ??? Pure hypercholesterolemia ??? Sleep apnea CPAP Discharge Diagnoses: Degenerative joint disease, left knee. Diagnostic Studies See hospital course Treatments See hospital course Procedures: Left Total Knee Arthroplasty with the Mini-Subvastus Approach Consults: Hospitalist Hospital Course: Good progress with PT. Pain controlled with oral medications. Silver dressing C/D/I. Condition at discharge: good Disposition: Home, Home health Code Status At Discharge Full Code Patient Instructions Discharge Procedure Orders AMB REFERRAL TO HOME HEALTH CARE Referral Priority: Routine Referral Type: Home Health Care Referral Reason: Specialty Services Required Requested Specialty: Home Health Services Number of Visits Requested: 1 Follow up Instructions Please continue to wear your home cpap/bipap during times of sleepiness, unless otherwise instructed. Some medications that you may have been prescribed or were used during a procedure may increase the chance of sleep apnea complications. Follow up instructions Please continue to wear your home cpap/bipap during times of sleepiness, unless otherwise instructed. Some medications that you may have been prescribed or were used during a procedure may increase the chance of sleep apnea complications. Why you were hospitalized Order Specific Question Answer Comments Your discharge diagnosis is: Status post surgery [[id number]] No special diet needed Resume your normal home diet as tolerated. Continue the anti-inflammatory diet, as instructed pre-operative, for 4 weeks after surgery. Assistive device(s) Please use a walker. Do not go without your walker, even short distances, as this can result in a fall. Your home health physical therapist will progress you to a cane over the next few weeks. Weight bearing as tolerated Slowly increase the amount of weight you put on your operative leg. Do not drive Until you are off your pain medications and you feels safe behind a wheel. This is generally at least 3-4 weeks after surgery. Activity per Physical Therapy Continue to follow the activity instructions/precautions given to you by the Physical Therapist. Apply ice to surgical site Apply ice to your surgery site for at least 20 minutes, every hour, when awake. Elevate affected extremity Elevate operative leg above heart level at least for 45 min three times a day. Do not leave foot independent position (on the floor) for more than 45 min at a time. Prop foot up on stool or chair toallow for some elevation. Special incision care For the first 4 weeks after surgery- it is important to keep incision area very clean to help with the prevention of infection. 1. Hand hygiene is a must- wash hands frequently. Especially pre and post bandage change. 2. Please do not allow pets to lick or be near the wound when it is uncovered. 3. Please make sure your clothes, bed linen, and blankets are clean 4. Limit alcohol and smoking as this prohibits healing 5. Follow anti-inflammatory diet given prior to surgery Special dressing instructions Leave operative (silver) dressing in place. The dressing can be pulled back to inspect the incisionif needed, but this is not necessary unless concerns exist. You may shower with dressing on, as it is waterproof. Wrap area with woyiu-m-gzxl or saran wrap prior to shower. Do not let water saturate bandage. Remove bpguk-z-wwnf/saran wrap after shower. Do NOT shower if you are having drainage from wound. Home health will remove the silver dressing about one week after surgery and place a gauze dressing. To shower once gauze bandage has been placed: remove gauze dressing prior to shower. Allow water to run over incision. Do not scrub incision area. Pat dry with CLEAN towel and apply new gauze d ressing after shower. Do NOT shower if having any drainage from wound. No tub baths until approved by your surgeon Staple care Your jeff will be taken out 12-15 days post op by home health. Do not shower for 24 hours after staple removal. After jeff are removed and there is no drainage present, incision can be left uncovered. When to call your provider We want to help you avoid an unnecessary ER visit or hospital readmission. Call your surgeon's office immediately if any of the following signs or symptoms occur after surgery: ?? Wound concerns: - Increase in redness, separation or gap along the edges of the incision - Drainage that is increasing, foul-smelling, an unusual color, or that continues more than 7 days after surgery ?? Pain, redness or excessive tenderness in your leg or calf ?? Excessive swelling in your foot, ankle, calf and/or thigh ?? Ankle swelling that does not improve overnight ?? Pain that does not improve with medication, rest, ice and elevation ?? Fever greater than 101.5 degrees ?? Blood in the stool or urine ?? Constipation not relieved by use of over-the counter laxatives ?? Nausea or vomiting When to Call 911: Call 911 if you have any of these symptoms: ?? Shortness of breath ?? Chest pain ?? Coughing up blood ?? Unexplained anxiety, especially with breathing Call 911 for any symptoms of stroke: ?? Sudden numbness or weakness of face, arm or leg, especially on one side. ?? Sudden confusion or trouble speaking or understanding speech. ?? Sudden trouble seeing in one or both eyes. ?? Sudden trouble walking, dizziness or loss of balance or coordination. ?? Sudden severe headache with no known cause. Follow up with provider Follow up 3 weeks. Order Specific Question Answer Comments Make appointment to follow up in: Other: (see comment) Follow Up Instructions for Patient: Other (See Comment) Medication instructions Do not drink alcohol when taking pain medications. Pain medications may make you drowsy. Do not attempt to drive or operate equipment after taking pain medications. Pain medications may make you constipated. Fresh fruits, vegetables, and juices will help to prevent this problem. If you become consti pated, fodk-giq-chjqkmn laxatives are available. - If your pain pills are not working call the clinic nursing staff in the office during normal business hours - To refill your pain pill prescription, call the clinic nursing staff in the office during normal business hours 2-3 days before you run out of pills. - Pain medications will not be refilled outside of regular clinic hours. Contact Information for Follow-Up Providers Elton Riggs MD Specialty: Orthopedic Surgery, Radiology [address] [place] [phone] Make appointment to follow up in: Other: (see comment) Follow Up Instructions for Patient: Other (See Comment) Discharge time: less than 30 minutes. Current Discharge Medication List UNREVIEWED MEDICATIONS Instructions Authorizing Provider oxyCODONE (immediate release) 5 MG tablet Commonly known as: Roxicodone Quantity Dispensed: 56 tablet Take 1 (one) tablet to 2 (two) tablets by mouth every 6 hours as needed for Pain Take 1 (one) tablet to 2 (two) tablets by mouth every 6 hours as needed for pain. Indications: Acute Pain Reasons: Acute Pain Elton Riggs MD START taking these medications Instructions Authorizing Provider acetaminophen 500 MG tablet Commonly known as: Tylenol Take 2 (two) tablets by mouth every 8 hours for 10 days Maximum allowable Acetaminophen amount = 4 Grams (4000 mg) / 24 hours. Elton Riggs MD aspirin 81 MG chew tablet Commonly known as: Aspirin Replaces: aspirin EC 81 MG tablet Take 1 (one) tablet by mouth 2 times daily for 42 days For blood clot prevention. Resume home dose once full dose therapy completed. Elton Riggs MD omeprazole 20 MG capsule Commonly known as: PriLOSEC Quantity Dispensed: 30 capsule Take 1 (one) capsule by mouth once daily for 42 days Elton Riggs MD CONTINUE taking these medications which have NOT CHANGED Instructions Authorizing Provider atorvastatin 80 MG tablet Commonly known as: Lipitor Take 1 (one) tablet by mouth once daily carvedilol 3.125 MG tablet Commonly known as: Coreg Take 1 (one) tablet by mouth 2 times daily Centrum Silver Tabs Take 1 (one) tablet by mouth once daily Co Q-10 100 MG Take 1 (one) capsule by mouth once daily ezetimibe 10 MG tablet Commonly known as: Zetia Take 1 (one) tablet by mouth once daily levothyroxine 125 MCG tablet Commonly known as: Synthroid Take 1 (one) tablet by mouth every morning meloxicam 15 MG tablet Commonly known as: Mobic Quantity Dispensed: 30 tablet TAKE 1 TABLET BY MOUTH EVERY DAY Elton Riggs MD potassium citrate 10 MEQ (1080 MG) tablet Commonly known as: Urocit K 10 Take 1 (one) tablet by mouth 3 times daily with meals vitamin D3 75 MCG (3000 UT) tablet Commonly known as: Cholecalciferol Take 1 (one) tablet by mouth once daily STOP taking these medications aspirin EC 81 MG tablet Commonly known as: Ecotrin Replaced by: aspirin 81 MG chew tablet CC: none documented in this encounter Medications at Time of Discharge Medication Sig Dispensed Refills Start Date End Date atorvastatin (LIPITOR) 80 MG tabletIndications:Hy perlipidemia Take 1 tablet by mouth once daily Reasons: High Amount of Fats in the Blood 10/14/2020 carvedilol (COREG) 3.125 MG tabletIndications:Hy pertension Take 1 (one) tablet by mouth 2 times daily Reasons: High Blood Pressure Disorder 10/14/2020 Coenzyme Q10 (Co Q-10) 100 MGIndications:supple ment Take 1 capsule by mouth once daily Reasons: supplement 10/15/2021 ezetimibe (Zetia) 10 MG tabletIndications:Hy perlipidemia Take 1 tablet by mouth once daily Reasons: High Amount of Fats in the Blood 04/18/2022 levothyroxine (SYNTHROID) 125 MCG tabletIndications:Hy pothyroidism Take 1 tablet by mouth every morning Reasons: Underactive Thyroid 10/14/1999 meloxicam (Mobic) 15 MG tabletIndications:Os teoarthritis TAKE 1 TABLET BY MOUTH EVERY DAY 30 tablet 5 10/22/2022 Multiple Vitamins-Minerals (CENTRUM SILVER) TABSIndications:supp lement Take 1 (one) tablet by mouth once daily Reasons: supplement potassium citrate (Urocit K 10) 10 MEQ (1080 MG) tabletIndications:Hy pokalemia Take 1 tablet by mouth 3 times daily with meals Reasons: Low Amount of Potassium in the Blood vitamin D3 (CHOLECALCIFEROL) 75 MCG (3000 UT) tabletIndications:naranjo pplement Take 1 tablet by mouth once daily Reasons: supplement 2018 acetaminophen (Tylenol) 500 MG tabletIndications:Pa in Take 2 (two) tablets by mouth every 8 hours for 10 days Maximum allowable Acetaminophen amount = 4 Grams (4000 mg) / 24 hours. 10/30/2022 11/09/2022 aspirin (Aspirin) 81 MG chew tabletIndications:po st op dvt prevention Take 1 (one) tablet by mouth 2 times daily for 42 days For blood clot prevention. Resume home dose once full dose therapy completed. 10/30/2022 12/11/2022 omeprazole (PriLOSEC) 20 MG capsuleIndications:H eartburn Take 1 (one) capsule by mouth once daily for 42 days 30 capsule 10/30/2022 12/11/2022 oxyCODONE, immediate release, (Roxicodone) 5 MG tabletIndications:Ac davide Pain Take 1 (one) tablet to 2 (two) tablets by mouth every 6 hours as needed for Pain Take 1 (one) tablet to 2 (two) tablets by mouth every 6 hours as needed for pain. Indications: Acute Pain Reasons: Acute Pain 56 tablet 10/30/2022 11/19/2022 documented as of this encounter Progress Notes * Skye Silvestre RN - 10/30/2022 11:25 AM CDT Ortho: POD #1 LTK Awake/alert, sitting up in chair visiting Afebrile/VSS Pain controlled DVT Prophylaxis: Aspirin 81 mg BID Silver dressing left knee: C/D/I Calf soft, NT LLE N/V intact Ambulated 55' with therapy Discharge instructions given, questions answered Continue PT, WBAT LLE Ice/elevate LLE for pain/swelling reduction F/u in office 3 weeks as scheduled * Ninfa Mckeon, JOINT MAKER MACHINE - 10/30/2022 10:49 AM CDT Physical Therapy Treatment Summary Chart review completed. Nursing consented for PT. Explained purpose of PT and patient consented to participate in therapy. Pt in bed, SO at bed side and attentive. Both were ed on the following: Pt ed not to amb with cryo-cuff on.Pt ed in use of call light and not to get up without staff assist.Pt was ed on car transfers and curb/steps as needed for home.Pt ed in performing AP, QS, IS 10 reps/hr and drinking plenty of fluids.Pt ed in WBAT, safe gt and transfers with ww, HEP, ice/elevation, sit up/change position/move about the house briefly with ww 60 min intervals. Use of ortho strap for assisted knee flex and car transfer, cont with use ofww until HH progresses to LR/no AD, donning/use of gt belt (issued to pt) for SO to assist into house, how to dress at bed side. RECOMMENDATIONS/PLAN: Rec cont'd PT for gt, strength, AD and ROM progression. Discharge PT Discharge Recommendations: Patient would benefit from ongoing therapy with home health Recommended Transportation Method: Private Car AM-PAC Basic mobility score for this patient is Mobility Raw Score:: 20 SUBJECTIVE: Pt eager to get going with PT. Plans on going home today. States pn is managed. Patient Arthroplasty Liaison (PAL): SO. Patient's Goal for the Day: Do PT, go home. Pain Assessment: Well managed. OBJECTIVE: Orientation Level: Oriented X4 Precautions: Fall. Bed Mobility: Supine to Sit: Complete [place] Transfers: Sit to Stand: Stand By Assist;Requires Verbal Cues for Safety;Requires Verbal Cues for Technique Stand to Sit: Stand By Assist;Requires Verbal Cues for Safety;Requires Verbal Cues for Technique Car Transfer: Stand By Assist;Requires Verbal Cues for Safety;Requires Verbal Cues for Technique (with ortho strap.) Mobility: Distance Ambulated: 55 FEET Ambulation: Assistive Device: Gait Belt;Walker-2 Wheeled Ambulation: Level of Assistance: Stand By Assist;Requires Verbal Cues for Safety;Requires Verbal Cues for Technique Ambulation: Gait Deviations: Tricia - Decreased;Heel Strike - Decreased;Increased Weight Bearing through Upper Extremity;Push Off - Decreased;Stance Time - Decreased;Step Length - Decreased;Weight Shift - Decreased Weight Bearing Status-LLE: Weight Bearing as Tolerated Stairs: Number: 4 Stairs: Assistive Device: Gait Belt Stairs: Use of Rails: Both Stairs: Level of Assistance: Stand-By Assist Curb: Assistive Device: Gait Belt;Walker-2 Wheeled Curb: Level of Assistance: Stand By Assist;Requires Verbal Cues for Safety;Requires Verbal Cues forTechnique Balance: Standing - Static: Good;With Both Upper Extremity's Support Standing - Dynamic: Good;With Both Upper Extremity's Support ROM: ROM Terminal Knee Extension: 4 ROM Knee Flexion: 65 Exercise: 10 reps per protocol. Activity Tolerance: Activity Tolerance: Requires rest breaks;Requires seated rest breaks ASSESSMENT: Pt was seen for mobility progression this POD 1 TKA. His SO is at bed side and very supportive. She had a TKA so she and pt are somewhat familiar with recovery/expectations. Pt demo some dec force production sit to stand but can manage safely with cues for hand placement and more forward flexion. When amb, he is stiff with some inc deviations because of this (segemented gt pattern, dec stance, dec knee flex). His ROM is fair. He is steady and safe with ww and can amb household distance. Wheeled to PT gym and pt initiated car transfer training with some effort due to his height andknee stiffness but states his car is roomier. No barriers with car just inc time and effort with trying to figure out best way to manage. He also initiated stair training and did well with pt requiring ER R LE and slight trunk rotation to get down stairs due to R knee is bad and has limitations. Wheeled back to room. Over all, pt hector well and there are no concerns or barriers to safe discharge home. Goals reviewed. Pt in tall chair with feet on stool after RX with tray table, phone and call light in reach. Ice therapy applied after treatment. Call light and phone in reach with chair alarm activated. All lines, monitors, IV's, equipment in place and intact pre and post visit. RN, Kayode, notified of patient's performance/location end of session.. Pt was educated in PT plan of care, fall precautions, and benefits of OOB activity/PT. Please refer to the Filed Flowsheet PT Treatment for further details. If this is the last Physical Therapy visit, this note serves as the discharge summary. PAOLA Ocasio, [id number] * Annmarie Kern MD - 10/30/2022 8:09 AM CDT IM PROGRESS NOTE Admit Date: 10/29/2022 5:34 AM Hospital Day: 1 PCP:Kacey Lafleur APRN-KEI Clinical Course/ Subjective complaints I saw the patient during the rounds today Pt denies CP, SOB, nausea, vomiting Patient denies any headache, fever, chills, cough, palpitations, dizziness, lightheadedness Pain is controlled with pain med's No events over night as per the nurse ROS:reviewed and negative except for above mentioned one's Data Patient Vitals for the past 24 hrs: Temp Pulse Resp BP SpO2 10/30/22 0733 97.9 ??F (36.6 ??C) 65 18 140/81 100 % 10/30/22 0324 97.5 ??F (36.4 ??C) 69 16 133/86 97 % 10/29/22 2309 98.4 ??F (36.9 ??C) 77 16 128/84 98 % 10/29/22 1921 98 ??F (36.7 ??C) 80 16 131/81 95 % 10/29/22 1603 -- 94 -- 154/87 97 % 10/29/22 1030 -- 65 14 147/95 100 % 10/29/22 1015 -- 62 11 141/87 99 % 10/29/22 1001 -- 63 11 149/93 97 % 10/29/22 1000 -- 63 17 149/93 98 % 10/29/22 0945 -- 63 15 131/94 99 % 10/29/22 0930 -- 60 10 123/96 97 % 10/29/22 0915 -- 61 13 145/95 99 % 10/29/22 0901 -- 66 18 146/97 97 % 10/29/22 0900 -- 66 16 146/97 95 % 10/29/22 0849 98 ??F (36.7 ??C) 70 12 151/96 100 % Intake/Output Summary (Last 24 hours) at 10/30/2022 0810 Last data filed at 10/30/2022 0606 Gross per 24 hour Intake 1920 ml Output 2100 ml Net -180 ml Recent Labs Component Name 09/25/22 0756 SODIUM 140 POTASSIUM 4.4 CHLORIDE 107 CO2 25 BUN 24 CREATININE 1.27* GLUCOSE 94 CALCIUM 9.2 Recent Labs Component Name 09/25/22 0756 WBC 4.4 HGB 14.6 HCT 43.4 PLTCOUNT 229 Pertinent vitals, Labs and imaging reports were reviewed by me MEDICATIONS FOR CURRENT ENCOUNTER: ?? SCHEDULED MEDICATIONS: ?? 0.9% NaCl injection 3 mL, Intracatheter, q8h ?? acetaminophen (Tylenol) tablet 1,000 mg, Oral, TID ?? aspirin chew tablet 81 mg, Oral, BID ?? atorvastatin (Lipitor) tablet 80 mg, Oral, QDAY ?? carvedilol (Coreg) tablet 3.125 mg, Oral, BID ?? celecoxib (CeleBREX) capsule 200 mg, Oral, BID ?? docusate sodium (Colace) capsule 100 mg, Oral, BID ?? levothyroxine (Synthroid) tablet 125 mcg, Oral, QAM ?? polyethylene glycol 3350 (Miralax) packet 17 g, Oral, QDAY ?? scopolamine (Transderm-Scop) 1 patch, Transdermal, q72h ?? [COMPLETED] tranexamic acid (Cyklokapron) injection 1,000 mg, Intravenous, Once ?? [START ON 10/31/2022] bisacodyl EC (Dulcolax) tablet 5 mg, Oral, Once ?? [START ON 11/01/2022] bisacodyl EC (Dulcolax) tablet 10 mg, Oral, Once ?? PRN MEDICATIONS: ?? Or ?? Or ?? 0.9% NaCl injection 1-10 mL, Intracatheter, PRN ?? acetaminophen (Tylenol) suppository 650 mg, Rectal, q6h PRN ?? acetaminophen (Tylenol) tablet 650 mg, Oral, q4h PRN ?? acetaminophen (Tylenol) tablet 650 mg, Oral, q6h PRN ?? artificial tears ophthalmic solution 2 drop, Each Eye, q6h PRN ?? bisacodyl (Dulcolax) suppository 10 mg, Rectal, Once PRN ?? bisacodyl EC (Dulcolax) tablet 5 mg, Oral, Once PRN ?? calcium carbonate (Tums) chew tablet 2 tablet, Oral, q4h PRN ?? diphenhydrAMINE (Benadryl) capsule 25 mg, Oral, q6h PRN ?? HYDROmorphone (Dilaudid) injection 0.4 mg, Intravenous, q3h PRN ?? ketorolac (Toradol) injection 15 mg, Intravenous, q6h PRN ?? melatonin tablet 3 mg, Oral, AT BEDTIME PRN - MR X 1 ?? metoclopramide (Reglan) injection 5 mg, Intramuscular, q6h PRN ?? metoclopramide (Reglan) injection 5 mg, Intravenous, q6h PRN ?? naloxone (Narcan) injection 0.4 mg, Intravenous, PRN ?? ondansetron (disintegrating) (Zofran ODT) tablet 4 mg, Oral, q6h PRN ?? ondansetron (Zofran) injection 4 mg, Intravenous, q6h PRN ?? oxyCODONE (immediate release) (Roxicodone) tablet 10 mg, Oral, q4h PRN ?? oxyCODONE (immediate release) (Roxicodone) tablet 5 mg, Oral, q4h PRN ?? polyethylene glycol 3350 (Miralax) packet 17 g, Oral, QDAY PRN ?? sodium phosphate rectal (Fleet) enema 133 mL, Rectal, Once PRN ?? throat lozenge 1 lozenge, Oral, q2h PRN Exam General appearance: alert, awake and cooperative no distress Head/eyes: No pallor , no icterus ENT: mucous membranes moist, neck supple CVS: S1 and S2 heard , regular rate and rhythm Pulm: bilateral breath sounds present , no wheezes or crackles GI: soft , non-tender, bowel sounds heard , no guarding or rigidity MSK: edema, no cyanosis or clubbing , Neuro: Alert and oriented x 3 , No gross focal deficits Psych: Calm, affect and mood normal Skin : no rashes No results found. Assessment and Plan Hypertension:?Resume BB blood pressure controlled Monitor blood pressure and adjust medications as needed ?? Hypothyroidism : Resume Synthroid ?? Hyperlipidemia: Resume statin Follow-up with PCP as an outpatient ?? History of CORIN : Resume CPAP at home settings ?? DJD s/p left TKA Continue postop care as per protocol Encourage incentive spirometer PT OT eval Continue p.r.n. analgesics for pain control and anti emetics as needed DVT Prophylaxis as per orthopedic surgeon Discussed with Pateint Peripheral IV Right;Posterior Hand (Active) Placement Date/Time: 10/29/22637 Orientation: Right;Posterior Location: Hand Name/Credentials of person who placed: tamanna IV Catheter Size: 18 Gauge Technique: Anatomical Landmarks Number of startattempts: 1 Local Anesthetic Used?: Injecta... Number of days: 1 Procedural Site (Incision) Anterior;Left Knee (Active) Date/Time: 10/29/22734 Orientation: Anterior;Left Location: Knee Number of days: 1 Portions of this note were carried over from previous note, EHR template. I reviewed and updated asnecessary This note was transcribed using a voice recognition system without human film maker. This report has not been adjusted for typographical, grammatical, and syntax mistakes by a trained medical psychotherapist. * Kayode Robles RN - 10/30/2022 7:46 AM CDT Problem: Pain/Discomfort Goal: Patient exhibits reduced pain/discomfort as evidenced by pain scores Outcome: Adequate for Discharge Goal: Patient uses pharmacological and non-pharmacological pain management strategies. Outcome: Adequate for Discharge Goal: Patient verbalizes acceptable level of pain relief and ability to engage in desired activity. Outcome: Adequate for Discharge Problem: Fall Risk Goal: Fall risk and fall related injury risk are minimized (interventions related to the fall risk can be found in the flowsheet documentation) Outcome: Adequate for Discharge Problem: Procedural Site (Incision) Care Goal: Incision remains intact with edges well approximated Outcome: Adequate for Discharge Goal: Incision is free of infection. Outcome: Adequate for Discharge * Edison Mariscal RN - 10/30/2022 7:02 AM CDT SHIFT SUMMARY -Radha is alert & oriented x4. -Vital signs stable. -Voiding without difficulties via urinal. -Silver dressing dry,clean and intact to left knee -CGA with walker -Pain control with Kahlil 10 mg, rest & ice/cold therapy -possible for home today Care continues * Edison Mariscal RN - 10/30/2022 1:09 AM CDT Problem: Pain/Discomfort Goal: Patient uses pharmacological and non-pharmacological pain management strategies. Outcome: Progressing Note: Joness pain is controlled with prn pain meds, rest & ice/cold therapy Problem: Fall Risk Goal: Fall risk and fall related injury risk are minimized (interventions related to the fall risk can be found in the flowsheet documentation) Outcome: Progressing Note: Radha understands the use of the call light for assistance, call light & belongings within reach, bed in lowest position, fall mat in place, bed alarm activated, side rails elevated x 2 Problem: Procedural Site (Incision) Care Goal: Incision is free of infection. Outcome: Progressing Note: Silver dressing is dry ,clean and intact. No signs of infection noted * Bipin Yousif Jr., RCP - 10/29/2022 9:04 PM CDT Assisted patient in home cpap/bipap set up. Patient will assume responsibility of home machine. 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 Chart reviewed for diagnosis and medical systems review. Nursing consented for PT. Lissette Explained purpose of PT and patient consented to participate in therapy. RECOMMENDATIONS/PLAN: Continue acute PT. Plan DC after AM session pending , RN recommendation. Discharge PT Discharge Recommendations: Patient would benefit from ongoing therapy with home health Recommended Transportation Method: Private Car PPE worn by staff: gloves PPE worn by patient: gown - patient, clean AM-PAC Basic mobility score for this patient is Mobility Raw Score:: 19 SUBJECTIVE: I feel good. My pain is only about a 2/10. My had a knee replacement so I am familiar with her recovery . IPTA (ntermittent cane use), Ind ADLS, driving. Patient Arthroplasty Liaison (PAL): Spouse Home Situation: Type of Residence: Private Residence Lives with:: Spouse Steps to Enter: 2 (2 thru garage and 3 thru front) Handrails: Outdoor;Indoor Home Structure: One Story;Basement Equipment at Home: Build in shower seat;Cane-Straight;Walker-2 Wheeled;CPAP Prior Level of Functioning: Mobility: Ambulate-In Community;Ambulate-In Home ;Independent;With Assistive Device;Driving (Cane longer distances) Fallen Within 6 Mos: No Have Help at Home?: Yes, there is help at home now How often is assistance provided?: Spouse assist IADLS Activity at Home: Active;Driving Pain Assessment: Pain Location #1 Pain Scale/Observation: Numeric (0-10) Pain Rating Score #1: 2 Sedation Level #1: 1-Awake and alert Goal Numeric Pain Scale: 4 Functional Goal: Participate in therapies Functional Goal Met?: Yes Pain Location : Knee Pain Orientation: Left Pain Quality: Aching ( Like a bruise ) Aggravating Factors: Activity;Movement Relieved By: Ice;Rest;Medications Pain Intervention(s): Non-pharmacological Non-pharmacological interventions: Cold;Rest Behaviors/Assumed Pain Present : Calm Additional pain sites?: No Patient/family stated goal: Consents to working with therapy OBJECTIVE: Precautions: Fall,skin, tachycardia with ambulation Cognition: Orientation Level: Oriented X4 Cognition: Follows Commands-Consistent ROM and Strength: AROM - Right Lower Extremity: Within Functional Limits Strength - Right Lower Extremity: Within Functional Limits AROM - Left Lower Extremity: Exceptions Strength - Left Lower Extremity: Exceptions Sensation: B LE SILT Tone: B LE WNL Balance: Sitting - Static: Good;With Both Upper Extremity's Support Standing - Static: Good;With Both Upper Extremity's Support Bed Mobility: Supine to Sit: Stand By Assist;Requires Verbal Cues for Technique Sit to Supine: Activity Does Not Occur Transfers: Sit to Stand: Stand By Assist;Requires Verbal Cues for Technique Stand to Sit: Stand By Assist;Requires Verbal Cues for Technique Mobility: Distance Ambulated: 60 FEET Ambulation: Assistive Device: Gait Belt;Walker-2 Wheeled Ambulation: Level of Assistance: Stand By Assist Ambulation: Gait Deviations: Antalgic;Tricia - Decreased;Step Length - Decreased Weight Bearing Status-LLE: Weight Bearing as Tolerated Exercise: Educated signficance of AP, QS, use of IS every hour. Activity Tolerance: SpO2: 97 % Pulse: 94 BP: 154/87 (149/91 post ambulation, HR 99) ASSESSMENT: Very pleasant. Tolerated fairly well ambulating 60 ft 2WW SBA. Cues for proper stride, heel toe pattern. Mild SOB requiring one standing rest period for proper breathing. HR 120. Denied CP, lightheadedness, dizziness, nausea. Returned to tall chair end of session. Vitals stabilized. Resting bedside chair end of session. Ice applied. Call light and phone in reach with chair alarm activated. All lines, monitors, IV's, equipment in place and intact pre and post visit. YEN Mclaughlin notified of patient's performance/location end of session. Pt educated in PT plan of care, fall precautions, and benefits of OOB activity. Problem list: decreased strength, decreased balance, decreased endurance, decreased ROM Functional limitations: Decreased independence with ambulation/transfers, decreased safety with functional mobility. Rationale for therapy: Patient will benefit from PT to address the above issues. Please refer to Filed Flowsheet PT Evaluation for further details. Refer to Plan of Care for PT goals. Malissa, PT [phone] * Rome Sutton PharmD - 10/29/2022 2:46 PM CDT [facility] Pharmacy Services Admission Medication Review Radha Zhang is a 67 year old male I have reviewed patient's home medication list with the patient and the electronic medical record. The medication list review was after the physician has seen and acted upon, and is now ready for re-review/order by physician. Medication List Revisions There were no problems noted. Thank you for the opportunity to take part of Radha Zhang's care. Rome Sutton PharmD , * Bea Calero RCP - 10/29/2022 2:13 PM CDT Assisted patient with set of home unit and added water. Patient will assume responsibility of theirown machine. * Lissette Araujo RN - 10/29/2022 11:33 AM CDT Problem: Pain/Discomfort Goal: Patient exhibits reduced pain/discomfort as evidenced by pain scores Outcome: Progressing Note: Managed with pharmacological and non-pharmacological interventions. Tolerated to do ADLS. Goal: Patient uses pharmacological and non-pharmacological pain management strategies. Outcome: Progressing Goal: Patient verbalizes acceptable level of pain relief and ability to engage in desired activity. Outcome: Progressing Problem: Fall Risk Goal: Fall risk and fall related injury risk are minimized (interventions related to the fall risk can be found in the flowsheet documentation) Outcome: Progressing Note: Free from falls; provided fall precautions interventions.\ Problem: Procedural Site (Incision) Care Goal: Incision remains intact with edges well approximated Outcome: Progressing Note: Dressing maintained clean, dry and intact. No signs of infection. Goal: Incision is free of infection. Outcome: Progressing * Barrera Reno - 10/15/2022 10:05 AM CDT -Verified patient does not have preferred HH agency: does not have preference -Advised our first choice is [facility], if unavailable would find one that works with insurance: is ok with that -Advised will receive e-mail regarding elena Arcos to complete before surgery: completed -Verified e-mail: n/a -Recovering at home: at home * Barrera Reno - 10/15/2022 10:00 AM CDT First Attempt: Called pt to go over HH preferred placement, katja Arcos going to recover at home. N/A L/M documented in this encounter H&P Notes * Carlton Mayo PA-C - 10/27/2022 1:04 PM CDT [facility] PRE-OPERATIVE HISTORY AND PHYSICAL PATIENT NAME: Radha Zhang : 1955 CSN: [id number] HISTORY OF PRESENT ILLNESS: This is a 67 year old year-old male seen at the office regarding his left knee. The left knee has been symptomatic for over 4 years. His pain is gnawing and constant alongmedial joint line. The pain is relieved with rest for a short period of time. Radiograph of the left knee reveals grade 3 DJD along the medial joint line and grade 3 DJD along the patella-femoral joint. The left knee shows a varus angle of 10 degrees. Osteophytes are noticed on the medial/lateral femoral condyles and tibial plateau; with osteophytes off the superior and inferior pole of patella. Patient is failing conservative treatment for over the last 2yrs of rest, ice, anti- inflammatories, corticosteroid injections, and home exercise program. Formal physical therapy is contraindicated to the patients significant arthritis. Due to his pain and end stage arthritis has led to a decline in the patients home exercise program and daily activities (cleaning house, getting in and out of a chair, going up and down steps). The patients instability has put them at greater risk of falling, going up and down steps and walking on uneven surfaces. We are going to proceed with a left knee replacement. We have discussed surgical procedure, risks, complications, and postoperative expectations associated with this procedure. PAST MEDICAL HISTORY: Past Medical History: Diagnosis Date ??? Atherosclerosis of coronary artery ??? Disorder of thyroid ??? Pure hypercholesterolemia ??? Sleep apnea CPAP PAST SURGICAL HISTORY: Past Surgical History: Procedure Laterality Date ??? ANGIOPLASTY ??? Lithotripsy HOME MEDICATIONS: Prior to Admission medications Medication Sig Start Date End Date Taking? Authorizing Provider aspirin EC (ECOTRIN) 81 MG tablet Take 1 (one) tablet by mouth once daily 10/14/20 Lucia Liz MD atorvastatin (LIPITOR) 80 MG tablet Take 1 (one) tablet by mouth once daily 10/14/20 Lucia Liz MD carvedilol (COREG) 3.125 MG tablet Take 1 (one) tablet by mouth 2 times daily 10/14/20 Lucia Liz MD Coenzyme Q10 (Co Q-10) 100 MG Take 1 (one) capsule by mouth once daily 10/15/21 Lucia Liz MD ezetimibe (Zetia) 10 MG tablet Take 1 (one) tablet by mouth once daily 04/18/22 Lucia Liz MD levothyroxine (SYNTHROID) 125 MCG tablet Take 1 (one) tablet by mouth every morning 10/14/99 Lucia Liz MD meloxicam (Mobic) 15 MG tablet TAKE 1 TABLET BY MOUTH EVERY DAY 10/22/22 Elton Riggs MD Multiple Vitamins-Minerals (CENTRUM SILVER) TABS Take 1 (one) tablet by mouth once daily Lucia Liz MD potassium citrate (Urocit K 10) 10 MEQ (1080 MG) tablet Take 1 (one) tablet by mouth 3 times daily with meals Lucia Liz MD vitamin D3 (CHOLECALCIFEROL) 75 MCG (3000 UT) tablet Take 1 (one) tablet by mouth once daily 10/13/18Lucia Liz MD No current facility-administered medications for this encounter. Current Outpatient Medications Medication Sig Dispense Refill ??? aspirin EC (ECOTRIN) 81 MG tablet Take 1 (one) tablet by mouth once daily ??? atorvastatin (LIPITOR) 80 MG tablet Take 1 (one) tablet by mouth once daily ??? carvedilol (COREG) 3.125 MG tablet Take 1 (one) tablet by mouth 2 times daily ??? Coenzyme Q10 (Co Q-10) 100 MG Take 1 (one) capsule by mouth once daily ??? ezetimibe (Zetia) 10 MG tablet Take 1 (one) tablet by mouth once daily ??? levothyroxine (SYNTHROID) 125 MCG tablet Take 1 (one) tablet by mouth every morning ??? meloxicam (Mobic) 15 MG tablet TAKE 1 TABLET BY MOUTH EVERY DAY 30 tablet 5 ??? Multiple Vitamins-Minerals (CENTRUM SILVER) TABS Take 1 (one) tablet by mouth once daily ??? potassium citrate (Urocit K 10) 10 MEQ (1080 MG) tablet Take 1 (one) tablet by mouth 3 times daily with meals ??? vitamin D3 (CHOLECALCIFEROL) 75 MCG (3000 UT) tablet Take 1 (one) tablet by mouth once daily ALLERGIES: No Known Allergies PHYSICAL EXAMINATION: Patient is A & O x 3 MUSCULOSKELETAL: Good range of motion of the hips. Left knee, shows varus knee moderate effusion, no evidence of infection with point tenderness and crepitation along the medial-lateral joint line. Passive range of motion 4-112, with mid flexion instability. EXTREMITIES: Skin is without rashes, lesions or ulcerations. Neurovascularly intact distally, lowerextremities. MENTAL: Within normal limits. HEENT/NECK, LUNGS, HEART, ABDOMEN, NEUROLOGICAL: Normal S1 and S2 DIAGNOSTIC DATA: Please refer to HPI. IMPRESSION: End stage degenerative joint disease of the left knee, failing conservative treatment of corticosteroid injections, anti-inflammatories, decline in overall activity as well as failing home exercise program. PLAN: We are going to proceed with a left total knee replacement. We have discussed with the patient surgical procedure, risks, complications, and postoperative expectations associated with this. Implant selection discussed and models shown. Carlton Mayo PA-C documented in this encounter Consult Notes * Anaid Hodge RN - 10/30/2022 7:34 AM CDTAssociated Order(s): IP CONSULT TO CASE MANAGEMENT CM consulted noted. Will continue to follow pt thru D/C. Debbie NOWAK [id number] Care Coordination Initial Assessment Anticipated Discharge Date: 10/30/22 Transportation at Discharge: Family Anticipated level of care at discharge: Home Health Care Anticipated level of care provider: [facility] Prior to admission level of care: Home Prior to admit provider: Juan Jose Patient Goals: D/C return home with spouse; spouse will provide transportation at D/C. Plans: Discharge needs identified. See progress notes for details. Case Management to follow for discharge planning. Comments: Pt came to hospital from home with spouse for elective L TKA. Prior to hospitalization, pt independent of ADLs and mobility, used straight cane occasionally. 10/30/2022: Pt had surgery yesterday and recovering without complications. Plan is to D/C today withspouse. D/C Plan at this time: D/C return home with spouse; spouse will provide transportation at D/C. Lives with: Spouse Physical Limitations: None Requires Assistance With: None Preferred Pharmacy: [facility]/pharmacy #[id number] - [phone] [phone] [address] [place] [address] Advance Directive: No Advance Directive Information Given: Will be offered upon admission Would you like assistance on completing and executing or revising an Advance Directive?: No READMISSION RISK SCORE is N/A at 10:06 AM 10/30/2022. Met with patient Family Support (name and phone): Extended Emergency Contact Information Primary Emergency Contact: CATHIE ZHANG Address: [address] [place] [address] Mobile Relation: Spouse Cellular Plastics Cutter needed? No Patient or sales and marketing representative requests care coordination reach out to family or caregiver listed above regarding discharge planning and at time of discharge? Yes Patient/Family provided with list of resources? Unknown Preferred Provider / High Quality Network List given?: Unknown Reason for provider choice: Pt. choice - Physician driven, Pt. choice - Pt. choice Equipment at Home: Build in shower seat;Cane-Straight;Walker-2 Wheeled List DME pt. requires but does not have.: None Business Process Engineer Referral: No Will continue to follow. For any questions or needs please contact: Manager Collection Name/Phone number: Anaid Hodge RN [phone] * Nancy Paez MD - 10/29/2022 2:59 PM CDTAssociated Order(s): IP CONSULT TO HOSPITALIST Initial Hospitalist Consult Note Date of Consult: 10/29/2022 Patient's Primary Care Physician: Kacey Lafleur APRN-[facility] Physician Requesting Consult: Elton Riggs MD Reason for Consultation: Evaluation of patient's medical problems, which include hypertension and Hypothyroidism, HLD Name: Radha Zhang Age: [age] year old Sex: male Chief Complaint/History of Present Illness Patient is , a 67 year old male, who has been [facility] after a successful left TKA Pt's left knee has been symptomatic for 4 yrs , aggravated with activity and patient was reportedlyfailing conservative management. Pt is awake and alert , denies any CP, SOB, palpitations . Has no cough, hemoptysis, Denies nausea, vomiting ,abdominal pain, Has no fever or chills, rash , flank pain , Has no lightheadedness, dizziness, no headache, blurred vision /diplopia, photophobia Past Medical History: Diagnosis Date ??? Atherosclerosis of coronary artery ??? Disorder of thyroid hypothyroid ??? Pure hypercholesterolemia ??? Sleep apnea CPAP Past Surgical History: Procedure Laterality Date ??? ANGIOPLASTY ??? Arthroplasty Left 10/29/2022 ARTHROPLASTY LEFT TOTAL KNEE ??? Lithotripsy No family history on file. Social History Occupational History ??? Not on file Tobacco Use ??? Smoking status: Never ??? Smokeless tobacco: Never Vaping Use ??? Vaping Use: Never used Substance and Sexual Activity ??? Alcohol use: Not Currently ??? Drug use: Not Currently ??? Sexual activity: Not on file Medications Prior to Admission Medication Sig Dispense Refill ??? aspirin EC (ECOTRIN) 81 MG tablet Take 1 (one) tablet by mouth once daily ??? atorvastatin (LIPITOR) 80 MG tablet Take 1 (one) tablet by mouth once daily ??? carvedilol (COREG) 3.125 MG tablet Take 1 (one) tablet by mouth 2 times daily ??? Coenzyme Q10 (Co Q-10) 100 MG Take 1 (one) capsule by mouth once daily ??? ezetimibe (Zetia) 10 MG tablet Take 1 (one) tablet by mouth once daily ??? levothyroxine (SYNTHROID) 125 MCG tablet Take 1 (one) tablet by mouth every morning ??? meloxicam (Mobic) 15 MG tablet TAKE 1 TABLET BY MOUTH EVERY DAY 30 tablet 5 ??? Multiple Vitamins-Minerals (CENTRUM SILVER) TABS Take 1 (one) tablet by mouth once daily ??? potassium citrate (Urocit K 10) 10 MEQ (1080 MG) tablet Take 1 (one) tablet by mouth 3 times daily with meals ??? vitamin D3 (CHOLECALCIFEROL) 75 MCG (3000 UT) tablet Take 1 (one) tablet by mouth once daily No Known Allergies Review of Systems A 14 point review of systems was reviewed and was negative except as described in HPI. 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 Alert , No facial asymmetry, clear speech. No focal motor deficts Psych: has normal mood and affect SKIN: No rash,incision + Data I have reviewed the patient's labs and the review is significant for: Recent Labs Component Name 09/25/22 0756 WBC 4.4 HGB 14.6 HCT 43.4 PLTCOUNT 229 Recent Labs Component Name 09/25/22 0756 SODIUM 140 POTASSIUM 4.4 CHLORIDE 107 CO2 25 BUN 24 CREATININE 1.27* GLUCOSE 94 CALCIUM 9.2 Assessment and Plan Records available in chart ( paper and electronic) were reviewed. Home medications were reviewed Hypertension: Resume BB Low blood pressure parameters placed Monitor blood pressure and adjust medications as needed Hypothyroidism : Resume Synthroid Hyperlipidemia: Resume statin Follow-up with PCP as an outpatient History of CORIN : Resume CPAP at home settings DJD s/p left TKA Continue postop care as per protocol Encourage incentive spirometer PT OT eval Continue p.r.n. analgesics for pain control and anti emetics as needed DVT Prophylaxis as per orthopedic surgeon Treatment plan discussed with patient at bedside. All questions were answered. Orders placed in chart. CC: Kacey Lafleur APRN-[facility], Elton Riggs MD * Chantal Salazar RN - 10/29/2022 8:21 AM CDT [facility] can accept patient for Home Health. Thank you. Chantal Salazar Central hand ii thermal cutter [facility] [phone] documented in this encounter OR Notes * Operative - Elton Riggs MD - 10/29/2022 7:35 AM CDT Operative Report Left Total Knee PATIENT: Radha Zhang : 1955 ADMIT DATE: 10/29/2022 DATE OF SURGERY: 10/29/2022 PHYSICIAN: Elton Riggs MD SURGEON: Elton Riggs MD FACILITIES MAINTENANCE MANAGER: Carlton Mayo PA-C The skilled assistance of the mid level provider was necessary for the effective and successful completion of this case. The physician assistant director of nursing was essential for the proper positioning, manipulationof instruments, proper exposure, manipulation of tissue and wound closure. PREOPERATIVE DIAGNOSIS: Degenerative joint disease, left knee. POSTOPERATIVE DIAGNOSIS: Degenerative joint disease, left knee. PROCEDURE: Left Total Knee Arthroplasty with the Mini-Subvastus Approach. TYPE OF ANESTHESIA: Spinal DESCRIPTION OF PROCEDURE: The patient was brought into the operating room and placed under spinal anesthetic. The left lower extremity was placed under tourniquet control, prepped and draped in a standard fashion. An anterior incision was created from the superior pole of the patella down to the tibial tubercle.This was taken down to the extensor mechanism. A mini- subvastus approach was used. The patella was slid laterally and a 9 mm drill was used to obtain access into the distal femur and proximal tibia. A 5 degree valgus cut was created off the distal femur and this was sized to 75. The anterior, posterior chamfer cuts were created. The posterior osteophytes were removed with a half inch osteotome Attention was placed on the proximal tibia. An intermedullary alignment sandra was used to make a 90-90 cut off the superior aspect of the tibia. This was sized to a 83 component. A trial reduction showed excellent stability with a 10 poly trial. The patella reamed down for a S patellar component. The tibia was finished off for an I-beam component. The bony cut surfaces were pulsatile evacuated. The cement was mixed and digitally pressurized into the tibia, femur and patella. As each component was placed, excess bone cement was removed. Theknee was brought into full extension with a 10 poly trial to allow the cement to cure under compression. The knee was copiously irrigated. Electrocautery was used for hemostasis. A combination of Marcaine, epinephrine and morphine was injected outside the capsule. The final 10 poly was selected, placed and locked into position. The knee was taken through a stable range of motion. The extensor mech anism was closed with #2 Ethibond at the angle and #1 barbed suture for the remainder. The skin wasreapproximated with 2-0 Vicryl and closed with jeff. A bulky dressing and Cryo-Cuff were applied. The patient was awakened and taken to recovery in stable condition. Drains: None EBL: Minimal Specimens Removed: None Disposition: PACU Complications: None Elton Riggs MD documented in this encounter Plan of Treatment Scheduled Referrals Name Type Priority Associated Diagnoses Orde r Schedule AMB REFERRAL TO HOME HEALTH CARE Outpatient Referral Routine Primary osteoarthritis of left knee Ordered: 10/30/2022 documented as of this encounter Procedures Procedure Name Priority Date/Time Associated Diagnosis Comments HOME CPAP/BIPAP FOR HOSP USE: NOCTURNAL 02 Routine 10/29/2022 11:11 AM CDT MO TOTAL KNEE REPLACEMENT 10/29/2022 6:35 AM CDT Special Needs BIOMET (MICHELA) NOTIFIED-NB documented in this encounter Visit Diagnoses Not on filedocumented in this encounter Administered Medications Inactive Administered Medications - up to 3 most recent administrations Medication Order MAR Action Action Date Dose Rate Site 0.9% NaCl infusion at 100 mL/hr, Intravenous, CONTINUOUS, Starting on Sat10/29/22 at 1100, Until Sat10/30/22 at 1322, Post-op $ New Bag/Syringe 10/29/2022 11:08 AM CDT 100 mL/hr 0.9% NaCl injection 1-10 mL 1-10 mL, Intracatheter, PRN, Other, peripheral line flush, Starting on Sat10/29/22 at 0600, Until Sat10/30/22 at 1322, Flush peripheral IV catheter with 1-10 mL of normal saline before and after medications and prn to clear blood from the line or to verify patency., Pre-op $ Given 10/30/2022 3:30 AM CDT 10 mL 0.9% NaCl injection 3 mL 3 mL, Intracatheter, EVERY 8 HOURS, First dose on Sat10/29/22 at 0615, Until Discontinued, Flush peripheral IV catheter with 3 mL of normal saline every 8 hours., Pre-op 0.9% nacl irrigation solution CONTINUOUS PRN, Starting on Sat10/29/22 at 0739, Until Sat10/29/22 at 0849, Intra-op $ New Bag/Syringe 10/29/2022 7:39 AM CDT 1,000 mL Operative Site acetaminophen (Tylenol) suppository 650 mg 650 mg, Rectal, EVERY 6 HOURS PRN, Mild Pain, Starting on Sat10/29/22 at 1054, Until Sat10/30/22 at 1322, May use if unable to tolerate oral Patient preference for lesser PRN pain meds may be honored when the patient requests a less strong medication, a lower dose, or a less intrusive route of administration when the lesser drug, dose and route have been ordered for the patient. This patient request must be documented in the MAR., Post-op acetaminophen (Tylenol) tablet 1,000 mg 1,000 mg, Oral, PRE-OP ONCE, 1 dose, On Sat10/29/22 at 0615, For patients >50 Kg. Not for bariatric or cardiac patients. Patient preference for lesser PRN pain meds may be honored when the patient requests a less strong medication, a lower dose, or a less intrusive route of administration when the lesser drug, dose and route have been ordered for the patient. This patient request must be documented in the MAR., Pre-op $ Given 10/29/2022 6:11 AM CDT 1,000 mg acetaminophen (Tylenol) tablet 1,000 mg 1,000 mg, Oral, 3 TIMES DAILY, First dose on Sat10/29/22 at 1100, Until Discontinued, Maximum allowable Acetaminophen amount = 4 Grams (4000 mg) / 24 hours. Patient preference for lesser PRN pain meds may be honored when the patient requests a less strong medication, a lower dose, or a less intrusive route of administration when the lesser drug, dose and route have been ordered for the patient. This patient request must be documented in the MAR., Post-op $ Given 10/30/2022 7:31 AM CDT 1,000 mg $ Given 10/29/2022 7:59 PM CDT 1,000 mg $ Given 10/29/2022 3:22 PM CDT 1,000 mg acetaminophen (Tylenol) tablet 650 mg 650 mg, Oral, EVERY 6 HOURS PRN, Mild Pain, Starting on Sat10/29/22 at 1054, Until Sat10/30/22 at 1322, Maximum allowable Acetaminophen amount = 4 Grams (4000 mg) / 24 hours. Patient preference for lesser PRN pain meds may be honored when the patient requests a less strong medication, a lower dose, or a less intrusive route of administration when the lesser drug, dose and route have been ordered for the patient. This patient request must be documented in the MAR., Post-op acetaminophen (Tylenol) tablet 650 mg 650 mg, Oral, EVERY 4 HOURS PRN, Fever, For temperature GREATER than 101 , Starting on Sat10/29/22 at 1054, Until Sat10/30/22 at 1322, Maximum allowable Acetaminophen amount = 4 Grams (4000 mg) / 24 hours. Patient preference for lesser PRN pain meds may be honored when the patient requests a less strong medication, a lower dose, or a less intrusive route of administration when the lesser drug, dose and route have been ordered for the patient. This patient request must be documented in the MAR., Post-op artificial tears ophthalmic solution 2 drop 2 drop, Each Eye, EVERY 6 HOURS PRN, Dry Eyes, Starting on Sat10/29/22 at 1054, Until Sat10/30/22 at 1322, Post-op aspirin chew tablet 81 mg 81 mg, Oral, 2 TIMES DAILY, First dose on Sat10/30/22 at 0900, Until Discontinued, Post-op $ Given 10/30/2022 8:07 AM CDT 81 mg atorvastatin (Lipitor) tablet 80 mg 80 mg, Oral, DAILY, First dose on Sat10/29/22 at 2100, Until Discontinued $ Given 10/30/2022 7:31 AM CDT 80 mg $ Given 10/29/2022 7:59 PM CDT 80 mg bisacodyl (Dulcolax) suppository 10 mg 10 mg, Rectal, ONCE PRN, Constipation, if no BM 24 hours after oral bisacodyl, 1 dose, Starting on Sat10/29/22 at 1054, Until Sat10/30/22 at 1322, Post-op bisacodyl EC (Dulcolax) tablet 10 mg 10 mg, Oral, ONCE, 1 dose, On Sat11/01/22 at 0800, Hold if patient has already had a post-op bowel movement, Post-op bisacodyl EC (Dulcolax) tablet 5 mg 5 mg, Oral, ONCE, 1 dose, On Sat10/31/22 at 0800, Hold if patient has already had a post-op bowel movement, Post-op bisacodyl EC (Dulcolax) tablet 5 mg 5 mg, Oral, ONCE PRN, Constipation, no BM for 72 hours, 1 dose, Starting on Sat10/29/22 at 1054, Until Sat10/30/22 at 1322, Do not take within 1 hour of antacid, milk or milk product. Do not chew, crush or cut in half., Post-op BUPivacaine PF (Marcaine PF) 0.25 % injection PRN, Starting on Sat10/29/22 at 0805, Until Sat10/29/22 at 0850, Intra-op $ Given 10/29/2022 8:05 AM CDT 30 mL Operative Site calcium carbonate (Tums) chew tablet 2 tablet 2 tablet, Oral, EVERY 4 HOURS PRN, GI Upset, Starting on Sat10/29/22 at 1054, Until Sat10/30/22 at 1322, Post-op carvedilol (Coreg) tablet 3.125 mg 3.125 mg, Oral, 2 TIMES DAILY, First dose on Sat10/29/22 at 1145, Until Discontinued, Hold for BP less than 115/70 or HR less than 60 $ Given 10/30/2022 7:31 AM CDT 3.125 mg $ Given 10/29/2022 7:59 PM CDT 3.125 mg celecoxib (CeleBREX) capsule 200 mg 200 mg, Oral, 2 TIMES DAILY, First dose on Sat10/30/22 at 0900, Until Discontinued, Patient preference for lesser PRN pain meds may be honored when the patient requests a less strong medication, a lower dose, or a less intrusive route of administration when the lesser drug, dose and route have been ordered for the patient. This patient request must be documented in the MAR., Post-op $ Given 10/30/2022 8:07 AM CDT 200 mg celecoxib (CeleBREX) capsule 400 mg 400 mg, Oral, ONCE, 1 dose, On Sat10/29/22 at 0615, Patient preference for lesser PRN pain meds may be honored when the patient requests a less strong medication, a lower dose, or a less intrusive route of administration when the lesser drug, dose and route have been ordered for the patient. This patient request must be documented in the MAR., Pre-op $ Given 10/29/2022 6:10 AM CDT 400 mg chlorhexidine gluconate (Irrisept) 0.05 % solution PRN, Starting on Sat10/29/22 at 0739, Until Sat10/29/22 at 0850, Intra-op $ Given 10/29/2022 7:39 AM CDT 450 mL Operative Site diphenhydrAMINE (Benadryl) capsule 25 mg 25 mg, Oral, EVERY 6 HOURS PRN, Itching, Starting on Sat10/29/22 at 1054, Until Sat10/30/22 at 1322, Post-op docusate sodium (Colace) capsule 100 mg 100 mg, Oral, 2 TIMES DAILY, First dose on Sat10/29/22 at 2100, Until Discontinued, Hold for loose stools, Post-op $ Given 10/29/2022 7:59 PM CDT 100 mg famotidine (Pepcid) tablet 20 mg 20 mg, Oral, ONCE, 1 dose, On Sat10/29/22 at 0615, Pre-op $ Given 10/29/2022 6:10 AM CDT 20 mg fentaNYL (PF) (Sublimaze) injection 50 mcg 50 mcg, Intravenous, EVERY 10 MIN PRN, Severe Pain, 4 doses, Starting on Sat10/29/22 at 0855, Until Sat10/29/22 at 1054, Maximum total of 4 doses If patient reaches max total dose, please consult anesthesiologist prior to further administration of pain meds. Hold pain meds if there are signs of hypoventilation. Patient preference for lesser PRN pain meds may be honored when the patient requests a less strong medication, a lower dose, or a less intrusive route of administration when the lesser drug, dose and route have been ordered for the patient. This patient request must be documented in the MAR., PACU $ Given 10/29/2022 10:35 AM CDT 50 mcg $ Given 10/29/2022 9:25 AM CDT 50 mcg $ Given 10/29/2022 9:02 AM CDT 50 mcg HYDROmorphone (Dilaudid) injection 0.4 mg 0.4 mg, Intravenous, EVERY 3 HOURS PRN, Severe Pain, Starting on Sat10/29/22 at 1054, Until Sat10/30/22 at 1322, if unable to take PO or no improvement in pain score after any lesser PO or IV pain medication administered Patient preference for lesser PRN pain meds may be honored when the patient requests a less strong medication, a lower dose, or a less intrusive route of administration when the lesser drug, dose and route have been ordered for the patient. This patient request must be documented in the MAR., Post-op ketorolac (Toradol) injection 15 mg 15 mg, Intravenous, EVERY 6 HOURS PRN, Mild Pain, Moderate Pain, 4 doses, Starting on Sat10/29/22 at 1054, Until Sat10/30/22 at 1322, if unable to take PO or no improvement in pain score after any PO pain medication administered, Post-op lactated ringers infusion at 20 mL/hr, Intravenous, PRE-OP CONTINUOUS, Starting on Sat10/29/22 at 0615, Until Sat10/29/22 at 1109, Please place order for second bag of LR for all robotic surgeries, and all carotid endarterectomies., Pre-op $ New Bag/Syringe 10/29/2022 6:11 AM CDT 20 mL/hr levothyroxine (Synthroid) tablet 125 mcg 125 mcg, Oral, EVERY MORNING, First dose on Sat10/29/22 at 1145, Until Discontinued, Take in the morning on an empty stomach. Do not give within 4 hours of antacids, iron or calcium supplements. $ Given 10/30/2022 6:05 AM CDT 125 mcg lidocaine PF (Xylocaine MPF) 1 % injection 0.5 mL 0.5 mL, Infiltration, PRE-OP ONCE, 1 dose, On Sat10/29/22 at 0615, May be used (0.5 ml locally to anesthetize prior to insertion). For patients not allergic to local anesthetics., Pre-op $ Given 10/29/2022 6:11 AM CDT 0.5 mL melatonin tablet 3 mg 3 mg, Oral, AT BEDTIME PRN - MR X 1, Insomnia, Starting on Sat10/29/22 at 1054, Until Sat10/30/22 at 1322, may repeat x 1 after 30 minutes if no benefit of no sleep maintenance, Post-op metoclopramide (Reglan) injection 5 mg 5 mg, Intravenous, EVERY 6 HOURS PRN, Nausea/Vomiting, Starting on Sat10/29/22 at 1054, Until Sat10/30/22 at 1322, If no relief from ondansetron (ZOFRAN), use metoclopramide (REGLAN) in addition to ondansetron., Post-op metoclopramide (Reglan) injection 5 mg 5 mg, Intramuscular, EVERY 6 HOURS PRN, Nausea/Vomiting, Starting on Sat10/29/22 at 1054, Until Sat10/30/22 at 1322, If no relief from ondansetron (ZOFRAN), use metoclopramide (REGLAN) in addition to ondansetron. Use IM route if IV is unavailable., Post-op morphine (PF) injection PRN, Starting on Sat10/29/22 at 0805, Until Sat10/29/22 at 0850, Intra-op $ Given 10/29/2022 8:05 AM CDT 10 mg Operative Site naloxone (Narcan) injection 0.4 mg 0.4 mg, Intravenous, PRN, Other, If unable or difficult to arouse patient, if respiratory depression is present (less than 8 breaths/min), or if SPO2 less than 93% (and patient was above this at baseline), Starting on Sat10/29/22 at 1054, Until Sat10/30/22 at 1322, Mix 0.4 mg Naloxone in 9 mL Normal Saline for slow IV push. Administer dilute Naloxone solution IV very slowly (5 mL over 2 minutes) while observing the patient response and titrating to effect. If no response, call Rapid Response, continue IV Naloxone at the same rate up to a total of 0.8 mg or 20 mL of diluted Naloxone, and notify physician immediately., Post-op ondansetron (disintegrating) (Zofran ODT) tablet 4 mg 4 mg, Oral, EVERY 6 HOURS PRN, Nausea/Vomiting, Starting on Sat10/29/22 at 1054, Until Sat10/30/22 at 1322, Dissolved orally on tongue Dissolved orally on tongue, Post-op ondansetron (Zofran) injection 4 mg 4 mg, Intravenous, EVERY 6 HOURS PRN, Nausea/Vomiting, Starting on Sat10/29/22 at 1054, Until Sat10/30/22 at 1322, Administer IV if patient is NPO, actively vomiting, or unable to swallow., Post-op oxyCODONE (immediate release) (Roxicodone) tablet 10 mg 10 mg, Oral, EVERY 4 HOURS PRN, Severe Pain, Starting on Sat10/29/22 at 1054, Until Sat10/30/22 at 1322, Patient preference for lesser PRN pain meds may be honored when the patient requests a less strong medication, a lower dose, or a less intrusive route of administration when the lesser drug, dose and route have been ordered for the patient. This patient request must be documented in the MAR., Post-op $ Given 10/29/2022 11:16 PM CDT 10 mg $ Given 10/29/2022 3:22 PM CDT 10 mg $ Given 10/29/2022 11:22 AM CDT 10 mg oxyCODONE (immediate release) (Roxicodone) tablet 5 mg 5 mg, Oral, EVERY 4 HOURS PRN, Moderate Pain, or for pain 30 min to 1 hour prior to painful procedures/therapy, Starting on Sat10/29/22 at 1054, Until Sat10/30/22 at 1322, Patient preference for lesser PRN pain meds may be honored when the patient requests a less strong medication, a lower dose, or a less intrusive route of administration when the lesser drug, dose and route have been ordered for the patient. This patient request must be documented in the MAR., Post-op $ Given 10/30/2022 7:30 AM CDT 5 mg polyethylene glycol 3350 (Miralax) packet 17 g 17 g, Oral, DAILY, First dose on Sat10/29/22 at 2100, Until Discontinued, Mix in 8 ounces of water, juice, soda, coffee or tea prior to administration, Post-op polyethylene glycol 3350 (Miralax) packet 17 g 17 g, Oral, DAILY PRN, Constipation, Starting on Sat10/29/22 at 1054, Until Sat10/30/22 at 1322, Mix in 8 ounces of water, juice, soda, coffee or tea prior to administration, Post-op povidone-iodine (Betadine) 5 % solution Nasal, ONCE, 1 dose, On Sat10/29/22 at 0615, 1. Use a tissue to clean the inside of both nostrils including the inside tip of nostril. Discard. 2. Tilting the bottle slightly, dip one swab into solution and stir vigorously for 10 seconds. Withdraw the swab slowly to avoid wiping solution off during removal. 3. Insert swab comfortably into one nostril and rotate for 15 seconds covering all surfaces. Then focus on the inside tip of nostril and rotate for an additional 15 seconds. (swab 1) 4. Using a new swab: repeat steps 2 and 3 with the ther nostril. (swab 2) 5. Repeat the application in both nostrils using a fresh swab each time. (swabs 3 and 4) 6. Do not blow nose. If solution drips out of nose, it can be lightly dabbed with a tissue., Pre-op $ Given 10/29/2022 6:10 AM CDT scopolamine (Transderm-Scop) 1 patch 1 patch, Administer over 72 Hours, EVERY 72 HOURS, 1 dose, First dose on Sat10/29/22 at 0615, Apply patch behind the ear, do not cut patch, only 1 patch should be worn at a time and remove old patch before applying new patch.This patch may contain metal and is not compatible with MRI. Notify radiology of patch location upon arrival to MRI. Each patch contains 1.5 mg scopolamine base and is formulated to deliver 1 mg of scopolamine over 72 hours. $ Applied 10/29/2022 6:10 AM CDT 1 patch Behind Right Ear sodium phosphate rectal (Fleet) enema 133 mL 133 mL (1 enema), Rectal, ONCE PRN, Constipation, if no BM 4 hours after bisacodyl suppository, 1 dose, Starting on Sat10/29/22 at 1054, Until Sat10/30/22 at 1322, Post-op throat lozenge 1 lozenge 1 lozenge, Oral, EVERY 2 HOURS PRN, Sore Throat, Starting on Sat10/29/22 at 1054, Until Sat10/30/22 at 1322, Post-op tranexamic acid (Cyklokapron) injection 1,000 mg 1,000 mg, Intravenous, ONCE, 1 dose, On Sat10/29/22 at 0915, Do not inject more rapidly than 1 mL/min to avoid hypotension. $ Given 10/29/2022 9:00 AM CDT 1,000 mg vancomycin (Vancocin) injection PRN, Starting on Sat10/29/22 at 0815, Until Sat10/29/22 at 0850, Intra-op $ Given 10/29/2022 8:15 AM CDT 500 mg Operative Site documented in this encounter Active and Recently Administered Medications Times are shown in CDT. Scheduled Medication Order 10/28/2022 10/29/2022 10/30/2022 0.9% NaCl injection 3 mL(Linked Group 1) 3 mL, Intracatheter, EVERY 8 HOURS, First dose on Sat10/29/22 at 0615, Until Discontinued, Flush peripheral IV catheter with 3 mL of normal saline every 8 hours., Pre-op 0615 (Due)1202 (Not Administered - Provider: Lissette Araujo RN - Reason: Loss of Access)2146 (Not Administered - Provider: Edison Mariscal RN - Reason: IV Currently Infusing) 0521 (Not Administered - Provider: Edison Mariscal RN - Reason: Per Administration Instructions - Comment: given @ 0330) acetaminophen (Tylenol) tablet 1,000 mg (COMPLETED) 1,000 mg, Oral, PRE-OP ONCE, 1 dose, On Sat10/29/22 at 0615, For patients >50 Kg. Not for bariatric or cardiac patients. Patient preference for lesser PRN pain meds may be honored when the patient requests a less strong medication, a lower dose, or a less intrusive route of administration when the lesser drug, dose and route have been ordered for the patient. This patient request must be documented in the MAR., Pre-op 0611 ($ Given - Provider: Tamanna Sierra RN) acetaminophen (Tylenol) tablet 1,000 mg 1,000 mg, Oral, 3 TIMES DAILY, First dose on Sat10/29/22 at 1100, Until Discontinued, Maximum allowable Acetaminophen amount = 4 Grams (4000 mg) / 24 hours. Patient preference for lesser PRN pain meds may be honored when the patient requests a less strong medication, a lower dose, or a less intrusive route of administration when the lesser drug, dose and route have been ordered for the patient. This patient request must be documented in the MAR., Post-op 1123 ($ Given - Provider: Lissette Araujo RN)1522 ($ Given - Provider: Lissette Araujo RN)1958 ($ Given - Provider: Edison Mariscal RN) 0731 ($ Given - Provider: Kayode Robles RN) aspirin chew tablet 81 mg 81 mg, Oral, 2 TIMES DAILY, First dose on Sat10/30/22 at 0900, Until Discontinued, Post-op 0807 ($ Given - Prov ider: Yaquelin Lyons, Nurse Alteration Inspector) atorvastatin (Lipitor) tablet 80 mg 80 mg, Oral, DAILY, First dose on Sat10/29/22 at 2100, Until Discontinued 1958 ($ Given - Provider: Edison Mariscal RN) 0731 ($ Given - Provider: Kayode Robles RN) bisacodyl EC (Dulcolax) tablet 10 mg 10 mg, Oral, ONCE, 1 dose, On Sat11/01/22 at 0800, Hold if patient has already had a post-op bowel movement, Post-op bisacodyl EC (Dulcolax) tablet 5 mg 5 mg, Oral, ONCE, 1 dose, On Sat10/31/22 at 0800, Hold if patient has already had a post-op bowel movement, Post-op carvedilol (Coreg) tablet 3.125 mg 3.125 mg, Oral, 2 TIMES DAILY, First dose on Sat10/29/22 at 1145, Until Discontinued, Hold for BP less than 115/70 or HR less than 60 1112 (Not Administered - Provider: Lissette Araujo RN - Reason: See Comments - Comment: took this morning at home)1958 ($ Given - Provider: Edison Mariscal RN) 31 ($ Given - Provider: Kayode Robles RN) celecoxib (CeleBREX) capsule 200 mg 200 mg, Oral, 2 TIMES DAILY, First dose on Sat10/30/22 at 0900, Until Discontinued, Patient preference for lesser PRN pain meds may be honored when the patient requests a less strong medication, a lower dose, or a less intrusive route of administration when the lesser drug, dose and route have been ordered for the patient. This patient request must be documented in the MAR., Post-op 08 ($ Given - Prov ider: Yaquelin Lyons, Nurse Alteration Inspector) celecoxib (CeleBREX) capsule 400 mg (COMPLETED) 400 mg, Oral, ONCE, 1 dose, On Sat10/29/22 at 0615, Patient preference for lesser PRN pain meds may be honored when the patient requests a less strong medication, a lower dose, or a less intrusive route of administration when the lesser drug, dose and route have been ordered for the patient. This patient request must be documented in the MAR., Pre-op 06 ($ Given - Provider: Tamanna Sierra RN) docusate sodium (Colace) capsule 100 mg 100 mg, Oral, 2 TIMES DAILY, First dose on Sat10/29/22 at 2100, Until Discontinued, Hold for loose stools, Post-op 1958 ($ Given - Provider: Edison Mariscal RN) 0744 (Not Administered - Provider: Kayode Robles RN - Reason: Refused-Patient) famotidine (Pepcid) tablet 20 mg (COMPLETED) 20 mg, Oral, ONCE, 1 dose, On Sat10/29/22 at 0615, Pre-op 0610 ($ Given - Provider: Tamanna Sierra RN) levothyroxine (Synthroid) tablet 125 mcg 125 mcg, Oral, EVERY MORNING, First dose on Sat10/29/22 at 1145, Until Discontinued, Take in the morning on an empty stomach. Do not give within 4 hours of antacids, iron or calcium supplements. 1112 (Not Administered - Provider: Lissette Araujo RN - Reason: See Comments - Comment: took this morning at home) 0605 ($ Given - Provider: Edison Mariscal RN) lidocaine PF (Xylocaine MPF) 1 % injection 0.5 mL (COMPLETED) 0.5 mL, Infiltration, PRE-OP ONCE, 1 dose, On Sat10/29/22 at 0615, May be used (0.5 ml locally to anesthetize prior to insertion). For patients not allergic to local anesthetics., Pre-op 0611 ($ Given - Provider: Tamanna Sierra RN) polyethylene glycol 3350 (Miralax) packet 17 g 17 g, Oral, DAILY, First dose on Sat10/29/22 at 2100, Until Discontinued, Mix in 8 ounces of water, juice, soda, coffee or tea prior to administration, Post-op 2000 (Not Administered - Provider: Edison Mariscal RN - Reason: See Comments - Comment: pt hd surgery today) 0744 (Not Administered - Provider: Kayode Robles RN - Reason: Patient Condition) povidone-iodine (Betadine) 5 % solution (COMPLETED) Nasal, ONCE, 1 dose, On Sat10/29/22 at 0615, 1. Use a tissue to clean the inside of both nostrils including the inside tip of nostril. Discard. 2. Tilting the bottle slightly, dip one swab into solution and stir vigorously for 10 seconds. Withdraw the swab slowly to avoid wiping solution off during removal. 3. Insert swab comfortably into one nostril and rotate for 15 seconds covering all surfaces. Then focus on the inside tip of nostril and rotate for an additional 15 seconds. (swab 1) 4. Using a new swab: repeat steps 2 and 3 with the ther nostril. (swab 2) 5. Repeat the application in both nostrils using a fresh swab each time. (swabs 3 and 4) 6. Do not blow nose. If solution drips out of nose, it can be lightly dabbed with a tissue., Pre-op 0610 ($ Given - Provider: Tamanna Sierra RN) scopolamine (Transderm-Scop) 1 patch(Linked Group 2) 1 patch, Administer over 72 Hours, EVERY 72 HOURS, 1 dose, First dose on Sat10/29/22 at 0615, Apply patch behind the ear, do not cut patch, only 1 patch should be worn at a time and remove old patch before applying new patch.This patch may contain metal and is not compatible with MRI. Notify radiology of patch location upon arrival to MRI. Each patch contains 1.5 mg scopolamine base and is formulated to deliver 1 mg of scopolamine over 72 hours. 0610 ($ Applied - Provider: Tamanna Sierra RN) 1210 (Due: Removed - Provider: Generic, Auto Release - Comment: Time automatically adjusted from order being discontinued) tranexamic acid (Cyklokapron) injection 1,000 mg (COMPLETED) 1,000 mg, Intravenous, ONCE, 1 dose, On Sat10/29/22 at 0915, Do not inject more rapidly than 1 mL/min to avoid hypotension. 0900 ($ Given - Provider: Carla Vidal RN) Continuous Medication Order 10/28/2022 10/29/2022 10/30/2022 0.9% NaCl infusion at 100 mL/hr, Intravenous, CONTINUOUS, Starting on Sat10/29/22 at 1100, Until Sat10/30/22 at 1322, Post-op 1108 ($ New Bag/Syringe - Provider: Lissette Araujo RN) lactated ringers infusion (CANCELED) at 20 mL/hr, Intravenous, PRE-OP CONTINUOUS, Starting on Sat10/29/22 at 0615, Until Sat10/29/22 at 1109, Please place order for second bag of LR for all robotic surgeries, and all carotid endarterectomies., Pre-op 0611 ($ New Bag/Syringe - Provider: Tamanna Sierra RN)0854 (Anesthesia Volume Adjustment - Provider: Elton Rai APRN-PRIMER SUPERVISOR) PRN Medication Order 10/28/2022 10/29/2022 10/30/2022 0.9% NaCl injection 1-10 mL(Linked Group 1) 1-10 mL, Intracatheter, PRN, Other, peripheral line flush, Starting on Sat10/29/22 at 0600, Until Sat10/30/22 at 1322, Flush peripheral IV catheter with 1-10 mL of normal saline before and after medications and prn to clear blood from the line or to verify patency., Pre-op 0330 ($ Given - Provider: Edison Mariscal RN) 0.9% nacl irrigation solution (COMPLETED) CONTINUOUS PRN, Starting on Sat10/29/22 at 0739, Until Sat10/29/22 at 0849, Intra-op 0739 ($ New Bag/Syringe - Provider: Elton Riggs MD) acetaminophen (Tylenol) suppository 650 mg(Linked Group 3) 650 mg, Rectal, EVERY 6 HOURS PRN, Mild Pain, Starting on Sat10/29/22 at 1054, Until Sat10/30/22 at 1322, May use if unable to tolerate oral Patient preference for lesser PRN pain meds may be honored when the patient requests a less strong medication, a lower dose, or a less intrusive route of administration when the lesser drug, dose and route have been ordered for the patient. This patient request must be documented in the MAR., Post-op acetaminophen (Tylenol) tablet 650 mg(Linked Group 3) 650 mg, Oral, EVERY 6 HOURS PRN, Mild Pain, Starting on Sat10/29/22 at 1054, Until Sat10/30/22 at 1322, Maximum allowable Acetaminophen amount = 4 Grams (4000 mg) / 24 hours. Patient preference for lesser PRN pain meds may be honored when the patient requests a less strong medication, a lower dose, or a less intrusive route of administration when the lesser drug, dose and route have been ordered for the patient. This patient request must be documented in the MAR., Post-op acetaminophen (Tylenol) tablet 650 mg 650 mg, Oral, EVERY 4 HOURS PRN, Fever, For temperature GREATER than 101 , Starting on Sat10/29/22 at 1054, Until Sat10/30/22 at 1322, Maximum allowable Acetaminophen amount = 4 Grams (4000 mg) / 24 hours. Patient preference for lesser PRN pain meds may be honored when the patient requests a less strong medication, a lower dose, or a less intrusive route of administration when the lesser drug, dose and route have been ordered for the patient. This patient request must be documented in the MAR., Post-op artificial tears ophthalmic solution 2 drop 2 drop, Each Eye, EVERY 6 HOURS PRN, Dry Eyes, Starting on Sat10/29/22 at 1054, Until Sat10/30/22 at 1322, Post-op bisacodyl (Dulcolax) suppository 10 mg 10 mg, Rectal, ONCE PRN, Constipation, if no BM 24 hours after oral bisacodyl, 1 dose, Starting on Sat10/29/22 at 1054, Until Sat10/30/22 at 1322, Post-op bisacodyl EC (Dulcolax) tablet 5 mg 5 mg, Oral, ONCE PRN, Constipation, no BM for 72 hours, 1 dose, Starting on Sat10/29/22 at 1054, Until Sat10/30/22 at 1322, Do not take within 1 hour of antacid, milk or milk product. Do not chew, crush or cut in half., Post-op BUPivacaine PF (Marcaine PF) 0.25 % injection (CANCELED) PRN, Starting on Sat10/29/22 at 0805, Until Sat10/29/22 at 0850, Intra-op 0805 ($ Given - Provider: Elton Riggs MD - Comment: MIxed with 10 mg Morphine) calcium carbonate (Tums) chew tablet 2 tablet 2 tablet, Oral, EVERY 4 HOURS PRN, GI Upset, Starting on Sat10/29/22 at 1054, Until Sat10/30/22 at 1322, Post-op chlorhexidine gluconate (Irrisept) 0.05 % solution (CANCELED) PRN, Starting on Sat10/29/22 at 0739, Until Sat10/29/22 at 0850, Intra-op 0739 ($ Given - Provider: Elton Riggs MD) diphenhydrAMINE (Benadryl) capsule 25 mg 25 mg, Oral, EVERY 6 HOURS PRN, Itching, Starting on Sat10/29/22 at 1054, Until Sat10/30/22 at 1322, Post-op fentaNYL (PF) (Sublimaze) injection 50 mcg (CANCELED) 50 mcg, Intravenous, EVERY 10 MIN PRN, Severe Pain, 4 doses, Starting on Sat10/29/22 at 0855, Until Sat10/29/22 at 1054, Maximum total of 4 doses If patient reaches max total dose, please consult anesthesiologist prior to further administration of pain meds. Hold pain meds if there are signs of hypoventilation. Patient preference for lesser PRN pain meds may be honored when the patient requests a less strong medication, a lower dose, or a less intrusive route of administration when the lesser drug, dose and route have been ordered for the patient. This patient request must be documented in the MAR., PACU 0902 ($ Given - Provider: Carla Vidal RN)0925 ($ Given - Provider: Carla Vidal RN)1035 ($ Given - Provider: Carla Vidal RN) HYDROmorphone (Dilaudid) injection 0.4 mg 0.4 mg, Intravenous, EVERY 3 HOURS PRN, Severe Pain, Starting on Sat10/29/22 at 1054, Until Sat10/30/22 at 1322, if unable to take PO or no improvement in pain score after any lesser PO or IV pain medication administered Patient preference for lesser PRN pain meds may be honored when the patient requests a less strong medication, a lower dose, or a less intrusive route of administration when the lesser drug, dose and route have been ordered for the patient. This patient request must be documented in the MAR., Post-op ketorolac (Toradol) injection 15 mg 15 mg, Intravenous, EVERY 6 HOURS PRN, Mild Pain, Moderate Pain, 4 doses, Starting on Sat10/29/22 at 1054, Until Sat10/30/22 at 1322, if unable to take PO or no improvement in pain score after any PO pain medication administered, Post-op melatonin tablet 3 mg 3 mg, Oral, AT BEDTIME PRN - MR X 1, Insomnia, Starting on Sat10/29/22 at 1054, Until Sat10/30/22 at 1322, may repeat x 1 after 30 minutes if no benefit of no sleep maintenance, Post-op metoclopramide (Reglan) injection 5 mg 5 mg, Intravenous, EVERY 6 HOURS PRN, Nausea/Vomiting, Starting on Sat10/29/22 at 1054, Until Sat10/30/22 at 1322, If no relief from ondansetron (ZOFRAN), use metoclopramide (REGLAN) in addition to ondansetron., Post-op metoclopramide (Reglan) injection 5 mg 5 mg, Intramuscular, EVERY 6 HOURS PRN, Nausea/Vomiting, Starting on Sat10/29/22 at 1054, Until Sat10/30/22 at 1322, If no relief from ondansetron (ZOFRAN), use metoclopramide (REGLAN) in addition to ondansetron. Use IM route if IV is unavailable., Post-op morphine (PF) injection (CANCELED) PRN, Starting on Sat10/29/22 at 0805, Until Sat10/29/22 at 0850, Intra-op 08 ($ Given - Provider: Elton Riggs MD) naloxone (Narcan) injection 0.4 mg 0.4 mg, Intravenous, PRN, Other, If unable or difficult to arouse patient, if respiratory depression is present (less than 8 breaths/min), or if SPO2 less than 93% (and patient was above this at baseline), Starting on Sat10/29/22 at 1054, Until Sat10/30/22 at 1322, Mix 0.4 mg Naloxone in 9 mL Normal Saline for slow IV push. Administer dilute Naloxone solution IV very slowly (5 mL over 2 minutes) while observing the patient response and titrating to effect. If no response, call Rapid Response, continue IV Naloxone at the same rate up to a total of 0.8 mg or 20 mL of diluted Naloxone, and notify physician immediately., Post-op ondansetron (disintegrating) (Zofran ODT) tablet 4 mg 4 mg, Oral, EVERY 6 HOURS PRN, Nausea/Vomiting, Starting on Sat10/29/22 at 1054, Until Sat10/30/22 at 1322, Dissolved orally on tongue Dissolved orally on tongue, Post-op ondansetron (Zofran) injection 4 mg 4 mg, Intravenous, EVERY 6 HOURS PRN, Nausea/Vomiting, Starting on Sat10/29/22 at 1054, Until Sat10/30/22 at 1322, Administer IV if patient is NPO, actively vomiting, or unable to swallow., Post-op oxyCODONE (immediate release) (Roxicodone) tablet 10 mg(Linked Group 4) 10 mg, Oral, EVERY 4 HOURS PRN, Severe Pain, Starting on Sat10/29/22 at 1054, Until Sat10/30/22 at 1322, Patient preference for lesser PRN pain meds may be honored when the patient requests a less strong medication, a lower dose, or a less intrusive route of administration when the lesser drug, dose and route have been ordered for the patient. This patient request must be documented in the MAR., Post-op 1122 ($ Given - Provider: Lissette Araujo RN)1522 ($ Given - Provider: Lissette Araujo RN)2316 ($ Given - Provider: Edison Mariscal RN) 0730 (See Alternative - Provider: Kayode Robles RN) oxyCODONE (immediate release) (Roxicodone) tablet 5 mg(Linked Group 4) 5 mg, Oral, EVERY 4 HOURS PRN, Moderate Pain, or for pain 30 min to 1 hour prior to painful procedures/therapy, Starting on Sat10/29/22 at 1054, Until Sat10/30/22 at 1322, Patient preference for lesser PRN pain meds may be honored when the patient requests a less strong medication, a lower dose, or a less intrusive route of administration when the lesser drug, dose and route have been ordered for the patient. This patient request must be documented in the MAR., Post-op 1122 (See Alternative - Provider: Lissette Araujo RN)1522 (See Alternative - Provider: Lissette Araujo RN)2316 (See Alternative - Provider: Edison Mariscal RN) 0730 ($ Given - Provider: Kayode Robles RN) polyethylene glycol 3350 (Miralax) packet 17 g 17 g, Oral, DAILY PRN, Constipation, Starting on Sat10/29/22 at 1054, Until Sat10/30/22 at 1322, Mix in 8 ounces of water, juice, soda, coffee or tea prior to administration, Post-op sodium phosphate rectal (Fleet) enema 133 mL 133 mL (1 enema), Rectal, ONCE PRN, Constipation, if no BM 4 hours after bisacodyl suppository, 1 dose, Starting on Sat10/29/22 at 1054, Until Sat10/30/22 at 1322, Post-op throat lozenge 1 lozenge 1 lozenge, Oral, EVERY 2 HOURS PRN, Sore Throat, Starting on Sat10/29/22 at 1054, Until Sat10/30/22 at 1322, Post-op vancomycin (Vancocin) injection (CANCELED) PRN, Starting on Sat10/29/22 at 0815, Until Sat10/29/22 at 0850, Intra-op 0815 ($ Given - Provider: Elton Riggs MD - Comment: Powder sprinkled in wound at closure) Linked Groups Order Group 1: SALINE LOCK, INSERT AND MAINTAIN (CANCELED) Routine, CONTINUOUS, Starting on Sat10/29/22 at 0615, Until Specified, Pre-op, New collection And 0.9% NaCl injection 3 mLJump to med 3 mL, Intracatheter, EVERY 8 HOURS, First dose on Sat10/29/22 at 0615, Until Discontinued, Flush peripheral IV catheter with 3 mL of normal saline every 8 hours., Pre-op And 0.9% NaCl injection 1-10 mLJump to med 1-10 mL, Intracatheter, PRN, Other, peripheral line flush, Starting on Sat10/29/22 at 0600, Until Sat10/30/22 at 1322, Flush peripheral IV catheter with 1-10 mL of normal saline before and after medications and prn to clear blood from the line or to verify patency., Pre-op Group 2: scopolamine (Transderm-Scop) 1 patchJump to med 1 patch, Administer over 72 Hours, EVERY 72 HOURS, 1 dose, First dose on Sat10/29/22 at 0615, Apply patch behind the ear, do not cut patch, only 1 patch should be worn at a time and remove old patch before applying new patch.This patch may contain metal and is not compatible with MRI. Notify radiology of patch location upon arrival to MRI. Each patch contains 1.5 mg scopolamine base and is formulated to deliver 1 mg of scopolamine over 72 hours. And scopolamine patch placement confirmation (CANCELED) Transdermal, 2 TIMES DAILY, First dose on Sat10/29/22 at 0900, Until Discontinued, Patient has a patch to be confirmed on transition to inpatient and 2 times daily., Pre-op Group 3: acetaminophen (Tylenol) tablet 650 mgJump to med 650 mg, Oral, EVERY 6 HOURS PRN, Mild Pain, Starting on Sat10/29/22 at 1054, Until Sat10/30/22 at 1322, Maximum allowable Acetaminophen amount = 4 Grams (4000 mg) / 24 hours. Patient preference for lesser PRN pain meds may be honored when the patient requests a less strong medication, a lower dose, or a less intrusive route of administration when the lesser drug, dose and route have been ordered for the patient. This patient request must be documented in the MAR., Post-op Or acetaminophen (Tylenol) suppository 650 mgJump to med 650 mg, Rectal, EVERY 6 HOURS PRN, Mild Pain, Starting on Sat10/29/22 at 1054, Until Sat10/30/22 at 1322, May use if unable to tolerate oral Patient preference for lesser PRN pain meds may be honored when the patient requests a less strong medication, a lower dose, or a less intrusive route of administration when the lesser drug, dose and route have been ordered for the patient. This patient request must be documented in the MAR., Post-op Group 4: oxyCODONE (immediate release) (Roxicodone) tablet 5 mgJump to med 5 mg, Oral, EVERY 4 HOURS PRN, Moderate Pain, or for pain 30 min to 1 hour prior to painful procedures/therapy, Starting on Sat10/29/22 at 1054, Until Sat10/30/22 at 1322, Patient preference for lesser PRN pain meds may be honored when the patient requests a less strong medication, a lower dose, or a less intrusive route of administration when the lesser drug, dose and route have been ordered for the patient. This patient request must be documented in the MAR., Post-op Or oxyCODONE (immediate release) (Roxicodone) tablet 10 mgJump to med 10 mg, Oral, EVERY 4 HOURS PRN, Severe Pain, Starting on 10/29/22 at 1054, Until Sat10/30/22 at 1322, Patient preference for lesser PRN pain meds may be honored when the patient requests a less strong medication, a lower dose, or a less intrusive route of administration when the lesser drug, dose and route have been ordered for the patient. This patient request must be documented in the MAR., Post-op documented in this encounter Care Teams Corporate Event Planner Relationship Specialty Start Date End Date Kacey Lafleur APRN-KEI [id number], [address] [place] [address] PCP - General Nurse Practitioner Family 09/25/22 documented as of this encounter
--- OUTSIDE RECORDS SUMMARY | 2024-04-11 05:33 | XMS_ITS | Encounter Summary ---
Author Organization [facility] Health Address [address] [place] [address] Care Team Providers Care Psychometrist Name Role Phone WongKacey martinez DENNYS-INFORMATION MANAGER Primary Care Provider + Reason for Visit * Auth/Cert (Routine) Specialty Diagnoses / Procedures Referred By Contac t Referred To Contact Referral ID Status Reason Start Date Expiration Date Visits Re quested Visits Authorized [id number] 1 1 Encounter Details Date Type Department Care Team (Late st Contact Info) Description 11/06/2022 2:20 PM CDT Home Care Visit [facility] Health at Home Home Health [address], [address] [place] [id number] Fifi Garcia, LEN PT HOME VISIT Social [...] and heating? Not hard at all 10/30/2022 [facility] Occupat ional [facility] - Occupational Stress [...] place to sleep or slept in a senior care (including now)? No 10/30/2022 Sex and Gender [...] Sign Reading Time Taken Comments Blood Pressure 136/82 11/06/2022 4:10 PM CDT Pulse 78 11/06/2022 4:10 PM CDT Temperature 37.1 ??C (98.7 ??F) 11/06/2022 4:10 PM CD T Respiratory Rate 17 11/06/2022 4:10 PM CDT Oxygen Saturation 98% 11/06/2022 4:10 PM CDT Inhaled Oxygen Concentration - - [...] in 30 days. Gait Deficit Progressing No min a with use of cane today for short distances. Patient maintains or increases range of motion without developing further contracture Description: - Increase range of motion of lower extremities to 115 degrees within 30 days. - Improve lower extremity function as evidenced by active range of motion of involved limb in 30 days. Decreased Range of Motion Progressing No 95 degrees with todays assesment Patient performs home exercise program Description: - Demonstrates good follow-through with progressive exercise program within 30 days. - Patient will be able to demonstrate home program within 30 days. - Patient will be able to perform home program with independent without device level of assist in 30 days. Home Exercise Program Progressing No compliance with current hep Interventions Intervention Associated Problem/Goal Status Variance Visit Notes Additional Home Health Orders Description: - Assess vital signs and notify MD of significant changes. Problem:X Additional Home Health Orders Goal:Additional Home Health Orders Completed mett o date Gait Deficit Description: Gait training. Problem:Gait Deficit Goal:Patient improves ambulation and quality of gait Completed instructed and performed gait training with use of rw for 150 feet with min vcs. gait training with use of cane in home for 25 feet intervals with mod vcs for improving sequencing and safety. Decreased ROM Description: - Therapeutic exercise. - Establish home exercise program. Problem:Decreased Range of Motion Goal:Patient maintains or increases range of motion without developing further contracture Completed Completed this visit: Therapeutic exercise Completed this visit: Therapeutic exercise instructed and performed pres in reps of 10 times : supine: ap, gs, qs, heel slides with strap assit, hip abd, short arc quad. sitting: long arc quad, sitting sitting knee flexion stretch, both in reps of 10 times. standing with support of the walker: standing heel raises in reps of 10 ties. added knee hang for 90 seconds added Home Exercise Program Description: - Establish home exercise program. - Instruct Patient in home exercise program. Problem:Home Exercise Program Goal:Patient performs home exercise program Completed Completed this visit: Upgrade home exercise program added knee hang for 90 seconds with handouts provided. documented in this encounter Care Teams Psychometrist Relationship Specialty Start Date End Date Kacey Lafleur, TYPO MACHINE OPERATOR-INFORMATION MANAGER [id number], [address] [place] [address] PCP - General Nurse Practitioner Family 09/25/22 documented as of this encounter
--- OUTSIDE RECORDS SUMMARY | 2024-04-11 05:33 | XMS_ITS | Encounter Summary ---
Author Organization [facility] Address [address] [place] [address] Care Team Providers Care Siebel Consultant Name Role Phone Paul Ruiz MD Primary Care Provider [phone] Reason for Referral * OP/Amb RFL Auth (Routine) - Closed Specialty Diagnoses / Procedures Referred By Contac t Referred To Contact Diagnoses Primary osteoarthritis of left knee Procedures DE DRAIN/INJECT LARGE JOINT/BURSA Carlton Mayo PA-C [id number] [employer] [address] [place] [id number] Referral ID Status Reason Start Date Expiration Date Visits Re quested Visits Authorized [id number] Closed 04/05/2022 04/05/2023 1 1 RAL OFFICE TROUBLE SHOOTER Reason for Visit * Reason Comments Pain Knee Left knee pain, want s injection Encounter Details Date Type Department Care Team (Latest Contact Info) Description 04/05/2022 12:20 PM CENTRAL OFFICE TROUBLE SHOOTER Office Visit [facility] [id number] [address] [place] [address] Carlton Mayo PA-C [id number] [employer] [address] [place] [phone] Primary osteoarthritis of left knee (Primary [...] Progress Notes * Carlton Mayo PA-C - 04/05/2022 1:42 PM CST Left csinj before trip rx mobic RAL OFFICE TROUBLE SHOOTER * Ludy Bruno - 04/05/2022 11:17 AM CST Left knee pain, wants injection RAL OFFICE TROUBLE SHOOTER documented in this encounter H&P Notes * Carlton Mayo PA-C - 04/11/2022 1:42 AM CST DATE OF SERVICE: 04/05/2022 SUBJECTIVE: Patient is here at the office for left knee, and he would like to get a refill on his meloxicam. CLINICAL EXAMINATION: Good range of motion of the hip. Left knee shows a varus knee with medial lateral joint line crepitation, clicking, and mid flexion instability. IMPRESSION: Degenerative joint disease, left knee, under fairly good control. PLAN: We did refill his meloxicam; he is going to work on some motion stretching and strengthening exercises. We will see him back in the office as needed. Under sterile conditions, left knee was injected with 3 cc Lidocaine and 1 cc of 80 mg Depo-Medrol. Patient tolerated the procedure well. Carlton Mayo PA-C PJD/MedQ #: [id number] cc: Paul Ruiz RAL OFFICE TROUBLE SHOOTER documented in this encounter Plan of Treatment [...] mL, Intra-articular, ONCE, 1 dose, On [place] 04/05/22 at 1300 $ Given 04/05/2022 12:48 PM CENTRAL OFFICE TROUBLE SHOOTER 3 mL Left Knee methylPREDNISolone acetate (DEPO-Medrol) injection 80 mg 80 mg, Intra-articular, ONCE, 1 dose, On [place] 04/05/22 at 1300 $ Given 04/05/2022 12:48 PM CENTRAL OFFICE TROUBLE SHOOTER 80 mg Left Knee documented in this encounter Care Teams Siebel Consultant Relationship Specialty Start Date End Date Paul Ruiz MD [address] [place] [phone] PCP - General Family Medicine 11/14/21 09/24/22 documented as of this encounter
--- OUTSIDE RECORDS SUMMARY | 2024-04-11 05:33 | XMS_ITS | Encounter Summary ---
Author Organization [facility] Address [address] [place] [address] Care Team Providers Care Housekeeper/Custodian/Laundry Worker Name Role Phone Kacey Lafleur DENNYS-RAILROAD FIRER/FIREMAN Primary Care Provider + Reason for Referral * Home Health Care (Routine) - Closed Specialty Diagnoses / Procedures Referred By Contac t Referred To Contact Home Health Services Diagnoses Primary [place] of [place] [address] [place] [address] [facility] [address] [place] [address] Referral ID Status Reason Start Date Expiration Date V isits Requested Visits Authorized [id number] Closed Specialty Services Required 10/30/2022 10/30/2023 999 999 Reason for Visit * Auth/Cert (Routine) Specialty Diagnoses / Procedures Referred By Contac t Referred To Contact Procedures ARTHROPLASTY TOTAL KNEE Referral ID Status Reason Start Date Expiration Date Visits Re quested Visits Authorized [id number] 1 1 Encounter Details Date Type Department Care Team (Latest Contact Info) Description 10/29/2022 5:34 AM CDT - 10/30/2022 12:10 PM CDT Hospital Encounter [facility] [address] [address] [place] [id number] [address] [place] [address] Surgery General Discharge Disposition: Home Health Care Svc Social History Tobacco Use Types Packs/Day Years [...] and heating? Not hard at all 10/30/2022 [facility] [place] of Occupat ional Health - Occupational Stress [...] In the last 10 days, have nicole cantor been in contact with someone who was confirmed or suspected to have Coronavirus/COVID-19? No / Unsure 09/17/2022 1:12 PM CDT documented as of this encounter Last Filed Vital Signs Vital Sign Reading Time Taken Comments Blood Pressure 129/83 10/30/2022 11:18 AM CDT Pulse 71 10/30/2022 11:18 AM CDT Temperature 36.5 ??C (97.7 ??F) 10/30/2022 11:18 AM C DT Respiratory Rate 18 10/30/2022 7:33 AM CDT Oxygen Saturation 97% 10/30/2022 11:18 AM CDT Inhaled Oxygen Concentration - - [...] Physician: Elton Riggs MD Discharge Physician: Elton Schroer, MD Admission Diagnosis: Degenerative joint disease, left [...] Your discharge diagnosis is: Status post surgery [[id number]] No special diet needed Resume your normal [...] as it is waterproof. Wrap area with isdvv-b-qmay or saran wrap prior to shower. Do not let water saturate bandage. Remove kdatd-t-aeye/saran wrap after shower. Do NOT shower if [...] this problem. If you become consti pated, ebmd-lla-vbabnng laxatives are available. - If your pain [...] Elton Riggs MD Specialty: Orthopedic Surgery, Radiology [id number] [address] Make appointment to follow up in: Other: [...] office 3 weeks as scheduled * Ninfa Mckeon PTA - 10/30/2022 10:49 AM CDT Physical Therapy [...] Fall. Bed Mobility: Supine to Sit: Complete [place] Transfers: Sit to Stand: Stand By Assist;Requires [...] Date: 10/29/2022 5:34 AM Hospital Day: 1 PCP:ARTURO Cano Clinical Course/ Subjective complaints I saw the [...] Peripheral IV Right;Posterior Hand (Active) Placement Date/Time: 10/29/22 0638 Orientation: Right;Posterior Location: Hand Name/Credentials of person who placed: tamanna IV Catheter Size: 18 Gauge Technique: Anatomical Landmarks Number of startattempts: 1 Local Anesthetic Used?: Injecta... Number of days: 1 Procedural Site (Incision) Anterior;Left Knee (Active) Date/Time: 10/29/2235 Orientation: Anterior;Left Location: Knee Number of days: 1 Portions of this note were carried over from previous note, EHR template. I reviewed and updated asnecessary This note was transcribed using a voice recognition system without human skills trainer. This report has not been adjusted for typographical, grammatical, and syntax mistakes by a trained medical reviewer. * Kayode Robles RN - 10/30/2022 7:46 [...] of infection noted * Bipin Yousif Jr., [facility] - 10/29/2022 9:04 PM CDT Assisted patient in home cpap/bipap set up. Patient will assume responsibility of home machine. Home vending machine collector and operational at bedside * Lissette Araujo RN - 10/29/2022 6:23 PM CDT Received patient from PACU at 11am A&O x 4 VS stable Silver dressing clean, dry and intact Placed call light within reach Free from falls Voided Pain managed with kahlil, rest and ice Up with therapy CGA Lissette Araujo RN * Malissa Conway PT - 10/29/2022 4:57 PM CDT Physical [...] to Plan of Care for PT goals. LEN Leonardo [phone] * Rome Sutton PharmD - 10/29/2022 2:46 PM CDT [facility] Pharmacy Services Admission Medication Review [...] Mayo PA-C - 10/27/2022 1:[address] [facility] PRE-OPERATIVE HISTORY AND PHYSICAL PATIENT NAME: Radha Zhang : 1955 CSN: [id number] HISTORY OF PRESENT ILLNESS: This is a [...] to follow pt thru D/C. Debbie NOWAK [phone] Care Coordination Initial Assessment Anticipated Discharge Date: 10/30/22 Transportation at Discharge: Family Anticipated level of care at discharge: Home Health Care Anticipated level of care provider: [facility] Health At Home Prior to admission level [...] None Requires Assistance With: None Preferred Pharmacy: [id number] - [id number] [place] [address] [facility] [address] [place] [address] Advance Directive: No Advance Directive Information Given: Will be offered upon admission Would you like assistance on completing and executing or revising an Advance Directive?: No READMISSION RISK SCORE is N/A at 10:06 AM 10/30/2022. Met with patient Family Support (name and phone): Extended Emergency Contact Information Primary Emergency Contact: CATHIE ZHANG Address: [address] [place] [address] of [facility] Mobile Relation: Spouse Director Online Marketing needed? No Patient or technical account representative requests care coordination reach out to [...] pt. requires but does not have.: None Hand Former Referral: No Will continue to follow. 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 Alert , No facial asymmetry, clear speech. [...] Orders placed in chart. CC: Kacey Lafleur APRN-RAILROAD FIRER/FIREMAN, Elton Riggs MD * Chantal Salazar RN - 10/29/2022 8:21 AM CDT [facility] Health at Home can accept patient for Home Health. Thank you. Chantal Salazar Central bessemer regulator [facility] Home [phone] documented in this encounter OR Notes * Operative - Elton Riggs MD - 10/29/2022 7:35 AM CDT Operative Report Left Total Knee PATIENT: Radha Zhang : 1955 ADMIT DATE: 10/29/2022 DATE OF SURGERY: 10/29/2022 PHYSICIAN: Elton Riggs MD SURGEON: Elton Riggs MD FOOD TRADES ASSISTANTS: Carlton Mayo PA-C The skilled assistance of the mid level provider was necessary for the effective and successful completion of this case. The physician engineering assistant was essential for the proper positioning, manipulationof [...] NOCTURNAL 02 Routine 10/29/2022 11:11 AM CDT DE TOTAL KNEE REPLACEMENT 10/29/2022 6:35 AM CDT Special Needs BIOMET (MICHELA) NOTIFIED-NB documented in this encounter Visit Diagnoses Diagnosis Primary osteoarthritis of left knee- Primary Primary localized osteoarthrosis, lower leg Primary osteoarthritis of left knee Primary localized osteoarthrosis, lower leg documented in [...] of normal saline every 8 hours., Pre-op acetaminophen (Tylenol) suppository 650 mg 650 mg, [...] chew, crush or cut in half., Post-op calcium carbonate (Tums) chew tablet 2 tablet [...] Given 10/29/2022 6:10 AM CDT 400 mg diphenhydrAMINE (Benadryl) capsule 25 mg 25 mg, [...] IM route if IV is unavailable., Post-op naloxone (Narcan) injection 0.4 mg 0.4 mg, [...] Given 10/29/2022 9:00 AM CDT 1,000 mg documented in this encounter Active and Recently [...] Lissette Araujo RN - Reason: Loss of Access)2147 (Not Administered - Provider: Edison Mariscal RN [...] ($ Given - Provider: Edison Mariscal RN) 07 ($ Given - Provider: Kayode Robles RN) aspirin chew tablet 81 mg 81 mg, Oral, 2 TIMES DAILY, First dose on Sat10/30/22 at 0900, Until Discontinued, Post-op 0807 ($ Given - Prov ider: Yaquelin Lyons, Nurse Midwife Practitioner) atorvastatin (Lipitor) tablet 80 mg 80 mg, Oral, DAILY, First dose on Sat10/29/22 at 2100, Until Discontinued 1958 ($ Given - Provider: Edison Mariscal RN) 730 ($ Given - Provider: Kayode Robles RN) [...] ($ Given - Provider: Edison Mariscal RN) 07 ($ Given - Provider: Kayode Robles RN) [...] Given - Prov ider: Yaquelin Lyons, Nurse Midwife Practitioner) celecoxib (CeleBREX) capsule 400 mg (COMPLETED) 400 [...] must be documented in the MAR., Pre-op 0610 ($ Given - Provider: Tamanna Sierra RN) docusate sodium (Colace) capsule 100 mg 100 mg, Oral, 2 TIMES DAILY, First dose on Sat10/29/22 at 2100, Until Discontinued, Hold for loose stools, Post-op 195 ($ Given - Provider: Edison Mariscal RN) [...] Pre-op 0611 ($ Given - Provider: Tamanna Sierra, YEN) polyethylene glycol 3350 (Miralax) packet 17 g 17 g, Oral, DAILY, First dose on Sat10/29/22 at 2100, Until Discontinued, Mix in 8 ounces of water, juice, soda, coffee or tea prior to administration, Post-op 1999 (Not Administered - Provider: Edison Mariscal RN [...] Pre-op 0610 ($ Given - Provider: Tamanna Sierra, YEN) scopolamine (Transderm-Scop) 1 patch(Linked Group 2) 1 [...] (Anesthesia Volume Adjustment - Provider: Elton Rai APRN-WOOD MILLING MACHINE TENDER) PRN Medication Order 10/28/2022 10/29/2022 10/30/2022 0.9% [...] must be documented in the MAR., PACU 901 ($ Given - Provider: Carla Vidal RN)0925 ($ Given - Provider: Carla Vidal, RN)1035 ($ Given - Provider: Carla Vidal [...] 0805 ($ Given - Provider: Elton Riggs MD) [...] Araujo RN)2316 ($ Given - Provider: Edison Mariscal, RN) 0730 (See Alternative - Provider: Kayode Robles, YEN) oxyCODONE (immediate release) (Roxicodone) tablet 5 mg(Linked [...] RN) 0730 ($ Given - Provider: Kayode Robles, YEN) polyethylene glycol 3350 (Miralax) packet 17 g [...] Post-op documented in this encounter Care Teams Housekeeper/Custodian/Laundry Worker Relationship Specialty Start Date End Date Kacey Lafleur APRN-KEI [address] [place] [address] PCP - General Nurse Practitioner Family 09/25/22 documented as of this encounter
--- OUTSIDE RECORDS SUMMARY | 2024-04-11 05:33 | XMS_ITS | Encounter Summary ---
Author Organization [facility] Address [address] [place] [address] Care Team Providers Care House Visitor Name Role Phone JennietemiKacey APRN-[employer] LAW CLERK Primary Care Provider + Encounter Details Date Type Department Care Team (Late st Contact Info) Description 11/01/2022 [facility] [address] [place] [address] Social History Tobacco Use Types Packs/Day Years [...] Not hard at all 10/30/2022 [facility] of Occupat ional Health - Occupational Stress [...] money to buy more. Never true 10/31/19 Within the past 12 months, t he [...] place to sleep or slept in a fdc (including now)? No 10/30/2022 Sex and Gender [...] on filedocumented in this encounter Care Teams House Visitor Relationship Specialty Start Date End Date Kacey Lafleur, DENNYS-KEI [address] [place] [address] PCP - General Nurse Practitioner Family 09/25/22 documented as of this encounter
--- OUTSIDE RECORDS SUMMARY | 2024-04-11 05:33 | XMS_ITS | Encounter Summary ---
Author Organization [facility] Address [address] [place] [address] Care Team Providers Care No Bake Molder Name Role Phone WongKacey martinez DENNYS-PEOPLESOFT ANALYST Primary Care Provider + Reason for Visit * Auth/Cert (Routine) Specialty Diagnoses / Procedures Referred By Contac t Referred To Contact Procedures ARTHROPLASTY TOTAL KNEE Referral ID Status Reason Start Date Expiration Date Visits Re quested Visits Authorized [id number] 1 1 Encounter Details Date Type Department Care Team (Late st Contact Info) Description 10/29/2022 6:59 AM CDT Anesthesia Event [facility] - Perioperative Surgery [address] [place] [address] Sammy Hess DO [address] [place] [address] Anesthesia Record Procedure Summary Procedure Name Responsible Anesthesiologist Anesthesia Start Time Anesthesia Stop Time ARTHROPLASTY LEFT TOTAL KNEE (Left: Knee) Sammy Hess DO 10/29/22 0659 10/29/22 0855 Events Date Time Event Comment 10/29/2022 0641 0659 An Start 0701 An Start Data 0704 PT Reassessment 0704 Electnc Sig This record is electronically signed by the providers listed under staff. 0717 Spinal In 0725 An Induction 0728 An Intubation 0734 Timeout Anesthesia part icipated in timeout at the time documented in the record by nursing. 0734 An Tourn Inflated Pressure: 300mmHg Left thigh 0839 An Emergence 0842 An Tourn Deflated Total Tour niquet Time ( in minutes): 0843 Extubation 0846 an stop data 0847 ANPTO2 0855 An Stop Meds Name Total midazolam 2 mg/2mL injection 2 mg fentaNYL 100 mcg/2mL injection 100 mcg propofol 200 mg/20mL injection 200 mg dexamethasone 4 mg/mL injection 8 mg ondansetron 4 mg/2mL injection 8 mg bupivacaine in dextrose 0.75-8.25 % (spi nal tray NO CHARGE) 2 mL lidocaine 1% (epidural/spinal tray NO CH ARGE) 3 mL tranexamic acid 1000 mg/10mL injection 1 ,000 mg ceFAZolin 1 g vial 3 g phenylephrine 100 mcg/mL solution 200 mc g succinylcholine 100 mg/5mL injection 100 mg rocuronium 50 mg/5mL injection 50 mg sugammadex 200 mg/2mL injection 200 mg lactated ringers infusion 900 mL * Agents Name Exp. Sevoflurane Exp. N2O O2 Insp. Sevoflurane * Blood No blood administrations on file. Lines, Drains, and Airways Type Details Placement Removal Peripheral IV Date: 10/29/22; Time : 06; Orientation: Right, Posterior; Placed By: marina; Tolerance: Well 10/29/22 0638 by Marina Sierra RN 10/30/22 1142 by Kayode Robles RN ETT Date: 10/29/22; Time : 07; Placed By: LELA Sanchez; Vent: easy with oral airway mask; Induction: Modified Rapid Sequence; Blade Type: Video; Blade Size: 3; Laryngoscopy View: Grade 1 (full cords); Intubation Adjuncts: Stylet, Video Laryngoscope; Tube: Endotracheal Tube; Placement: Oral; Tube Type: Cuffed-inflated; Tube Size(mm): 8 MM; Depth of Insertion: 23 CM; Measured From: lips; Attempts: 1; Cuff Infated: Air; Cuff Vol(mL): 6 mL; Verified By: Direct visualization, Bilateral breath sounds, Chest Auscultation, CO2 Monitor 10/29/22 0728 by Elton Rai APRN-CRNA 10/29/22 0843 by Elton Rai APRN-CRNA Procedural Site (Incision) 10/29/22; 0735; Anterior, Left; Knee; 10/30/22; 18210/29/22 0735 by Priyanka Uriarte RN 10/30/22 182 by [employer] Release documented in this encounter Social History Tobacco [...] and heating? Not hard at all 10/30/2022 [facility] - Occupational Stress [...] place to sleep or slept in a alf (including now)? No 10/30/2022 Sex and Gender Information Value Date Recorded Sex Assigned at Male 11/11/2021 8:34 AM CDT Gender Identity Male 11/11/2021 8:34 AM CDT Sexual Orientation Straight 11/11/2021 8: 34 AM CDT documented as of this encounter Progress Notes * Elton Rai, FLASH DRIER OPERATOR-MUSIC INDUSTRY INTERN - 10/29/2022 8:55 AM CDT ANESTHESIA POSTOP EVALUATION NOTE Procedure: ARTHROPLASTY LEFT TOTAL KNEE (Left: Knee) Radha Zhang is a 67 year old male Patient Vitals for the past 6 hrs: BP Temp Pulse Resp SpO2 Pain Rating Score #1 Pain Scale/Observation 10/29/22 0625 138/85 97.1 ??F (36.2 ??C) 66 18 93 % 4 N Anesthesia Type: general ETT * No Diagnosis Codes entered * Mental Status: awake, sufficiently recovered from acute administration of anesthesia to participatein the evaluation and alert Neuro Status: No numbess, tingling or visual disturbances Respiratory Function: natural Cardiac Function: stable Postop Pain: acceptable to the patient Postop Hydration: adequate Postop Nausea: none Assessment: no apparent anesthetic complications, patient tolerated procedure well and no evidence of recall Patient Disposition: Release from Anesthesia Care NOTABLE EVENTS: No notable events documented. * Sammy Hess DO - 10/29/2022 6:39 AM CDT ANESTHESIA PREOPERATIVE EVALUATION NOTE Procedure: ARTHROPLASTY LEFT TOTAL KNEE (Left: Knee) NPO status: Since Midnight; *Except Oral meds with H2O (10/29/2022 6:26 AM) Vitals: Patient Vitals for the past 6 hrs: BP Temp Pulse Resp SpO2 Pain Rating Score #1 10/29/22 0625 138/85 97.1 ??F (36.2 ??C) 66 18 93 % 4 LMP: No LMP for male patient. OB Status: unknown ANESTHESIA PRE-EVALUATION NOTE Physical Exam: Orientation X3 Airway/Mallampati Score: II Mouth Opening Distance: 3 fingerwidths Neck ROM: full TM Distance: > 3 FB Teeth: normal Heart: normal - S1 S2 Lungs: clear to ausculation bilaterally Abdomen Exam: normal Review of Systems: History of anesthetic complications: No Sleep Apnea Risk: Yes, CPAP - compliant Malignant Hyperthermia: No GERD: No Recent Chest Pain: No Shortness of Breath: No AICD/Pacemaker: No Renal Disease: No Diagnostic Tests: Lab(s) reviewed: Yes. ANESTHESIA PLAN ASA Score: 2 NPO Status: No solids since midnight and No liquids within 2 hours Anesthesia Plan: MAC and spinal Planned Induction: intravenous Planned Postop Destination: PACU Anesthetic plan was discussed with: patient Anesthetic Plan discussion was: Consented The patient's procedural Anesthetic Plan was discussed with the anesthesiologist. BMI, Height, Weight Tobacco History Estimated body mass index is 37.08 kg/m?? as calculated from the following: Height as of this encounter: 1.829 m (6'). Weight as of this encounter: 124 kg (273 lb 6.4 oz). Social History Tobacco Use Smoking Status Never Smokeless Tobacco Never Vaping Use ??? Vaping Use: Never used Alcohol History Drug History Social History Substance and Sexual Activity Alcohol Use Not Currently Social History Substance and Sexual Activity Drug Use Not Currently Outpatient Medications: Inpatient Medications: Outpatient Medications Marked as Taking for the 10/29/22 encounter (Hospital Encounter) Medication Sig Last Dose ??? atorvastatin Take 1 (one) tablet by mouth once daily 10/28/2022 ??? carvedilol Take 1 (one) tablet by mouth 2 times daily 10/29/2022 at 0330 ??? ezetimibe Take 1 (one) tablet by mouth once daily 10/28/2022 ??? levothyroxine Take 1 (one) tablet by mouth every morning 10/29/2022 ??? potassium citrate Take 1 (one) tablet by mouth 3 times daily with meals 10/29/2022 ??? vitamin D3 Take 1 (one) tablet by mouth once daily 10/28/2022 Current Facility-Administered Medications Medication Dose Last Admin ??? 0.9% NaCl 3 mL And ??? 0.9% NaCl 1-10 mL ??? acetaminophen 1,000 mg ??? ceFAZolin 3 g ??? lactated ringers ??? lactated ringers New Bag at 10/29/22 0611 ??? scopolamine 1 patch 1 patch at 10/29/22 0610 And ??? scopolamine patch placement confirmation ??? scopolamine 1 patch And ??? scopolamine patch placement confirmation Allergies: No Known Allergies Relevant Problems No relevant active problems Problem List: Patient Active Problem List Diagnosis Date Noted ??? CAD (coronary artery disease) 11/15/2021 Priority: Not Prioritized ??? Primary osteoarthritis of left knee 11/15/2021 Priority: Not Prioritized ??? History of cardiac cath 10/14/2020 Priority: Not Prioritized ??? Mixed hyperlipidemia 08/22/2020 Priority: Not Prioritized Medical History: Past Medical History: Diagnosis Date ??? Atherosclerosis of coronary artery ??? Disorder of thyroid hypothyroid ??? Pure hypercholesterolemia ??? Sleep apnea CPAP Surgical History: Past Surgical History: Procedure Laterality Date ??? ANGIOPLASTY ??? Lithotripsy NANOTECHNOLOGY ENGINEERING TECHNOLOGIST Status: No LMP for male patient. unknown OB History No obstetric history on file. Covid Vaccine: Lab Results: Recent Labs Component Name 09/25/22 0756 WBC 4.4 RBC 4.75 HCT 43.4 HGB 14.6 PLTCOUNT 229 MCV 91.4 MCH 30.7 MCHC 33.6 MPV 8.7* Recent Labs Component Name 09/25/22 0756 SODIUM 140 POTASSIUM 4.4 CALCIUM 9.2 CHLORIDE 107 CO2 25 GLUCOSE 94 BUN 24 CREATININE 1.27* No results found for requested labs within last 120 days. Recent Labs Result Component Current Result Albumin 4.3 (09/25/2022) Alkaline Phosphatase 66 (09/25/2022) ALT 31 (09/25/2022) Anion Gap 8 (09/25/2022) AST 19 (09/25/2022) Bilirubin Total 1.2 (09/25/2022) eGFR by CKD-EPI 62 (L) (09/25/2022) documented in this encounter Procedure Notes * Elton Rai, FLASH DRIER OPERATOR-MUSIC INDUSTRY INTERN - 10/29/2022 8:31 AM CDTAssociated Order(s): ETT Placement Endotracheal Tube Placement: Patient Location: OR. Intubation Event Date/Time: 10/29/2022 7:28 AM Procedure: intubation (37767). Procedure Section: Sedation: under general anesthesia. Indications for Airway Management: anesthesia Procedure pretreatments used? No Induction: modified rapid sequence Patient Position: supine Mask Ventilation: easy with oral airway. Blade Type: Video Blade Size: 3 Laryngoscopy View: grade 1 (full cords) Intubation Adjuncts: stylet and video laryngoscope (Joaquin used for ease of use) Tube: endotracheal tube Placement: oral Tube type: cuff - inflated Tube Size (MM): 8 Depth of Insertion (CM): 23 Measured From: lips Cuff volume (mL): 6 Cuff Inflated With: air Number of Attempts: 1. Placement Verified By: direct visualization, bilateral breath sounds, chest auscultation and CO2 monitor Tube secured with: adhesive tape. Dentition unchanged? Yes Difficult Airway? No. Procedure Start Time: 10/29/2022 7:28 AM. Staff Section Anesthesia Provider: Elton Rai APRN-CRNA, Performed the procedure Additional Comments: Teeth, lips and oropharynx in preoperative condition . * Elton Rai APRN-CRNA - 10/29/2022 8:29 AM CDTAssociated Order(s): Neuraxial Block Neuraxial Block Note Pre-Procedure: Procedure Name: Neuraxial Block Patient Location: OR Indications: surgical anesthesia Pre-Anesthetic Checklist: Patient identified, IV Checked, Risks and benefits discussed, Surgical consent verified, Monitors and equipment, Site examined, Pre-op evaluation done, Time-out performed, Informed consent obtained, Questions answered/anesthesia questions answered and Allergies reviewed Anticoagulation/ Anti-thrombosis status confirmed? Yes Supplemental O2: room air Monitors: BP and continuous pluse ox Patient Condition: awake Patient Sedated? Yes Sedation Type: mild Procedure: Block Type: Spinal Prep: Betadine Sterile Field: mask, cap/hat, sterile established and sterile gloves Approach: midline Skin was localized? Yes Spinal Block: Needle Type: spinal needle Needle Gauge: 22 Needle Length: 90 mm Placement Site: L4-5 Number of Attempts: 2 CSF: free flow Local anesthetics used? No Degree of difficulty: moderate Procedure Tolerance: tolerated well Sensory Level: other - please comment (pt claimed no response to injction) Motor Blockade: No Position post procedure: supine Vital Signs: Vital signs monitored and stable throughout. See anesthesia record for details. Staff: Anesthesia Provider: Elton Rai APRN-CRNA - performed the procedure documented in this encounter Miscellaneous Notes * Anesthesia Transfer of Care - Elton Rai APRN-CRNA - 10/29/2022 8:55 AM CDT ANESTHESIA TRANSFER OF CARE NOTE Today's Date: 10/29/2022 Date of : 1955 Patient: Radha Zhang Procedure(s): ARTHROPLASTY LEFT TOTAL KNEE Surgeon(s): Primary: Elton Riggs MD Preop Diagnosis: * No Diagnosis Codes entered * Pre-op Meds (From admission, onward) Start Stop Status Route Frequency Ordered 10/29/22 0600 0.9% NaCl injection 1-10 mL See Hyperspace for full Linked Orders Report. -- Dispensed IK PRN 10/29/22 0600 10/29/22 0615 0.9% NaCl injection 3 mL See Hyperspace for full Linked Orders Report. -- Dispensed IK EVERY 8 HOURS 10/29/22 0600 10/29/22 0739 0.9% nacl irrigation solution 10/29/22 0849 Completed CONTINUOUS PRN 10/29/22 0739 10/29/22 0615 acetaminophen (Tylenol) tablet 1,000 mg 10/29/22 1814 Dispensed PO ONCE 10/29/22 0600 10/29/22 0615 acetaminophen (Tylenol) tablet 1,000 mg 10/29/22 0611 Completed PO PRE-OP ONCE 10/29/22 0600 10/29/22 0717 BUPivacaine in dextrose (spinal) (Sensorcaine) injection -- Sent IT PRN 10/29/22 0738 10/29/22 0615 ceFAZolin (Ancef) 3 g in 0.9% NaCl IV 100 mL IVPB 10/29/22 1814 Verified IV ONCE 10/29/22 0600 10/29/22 0718 ceFAZolin (Ancef) injection -- Sent IV PRN 10/29/22 0740 10/29/22 0615 celecoxib (CeleBREX) capsule 400 mg 10/29/22 0610 Completed PO ONCE 10/29/22 0600 10/29/22 0734 dexAMETHasone (Decadron) injection -- Sent IV PRN 10/29/22 0738 10/29/22 0615 famotidine (Pepcid) tablet 20 mg 10/29/22 0610 Completed PO ONCE 10/29/22 0600 10/29/22 0704 fentaNYL (PF) (Sublimaze) injection -- Sent IV PRN 10/29/22 0738 10/29/22 0615 lactated ringers infusion -- Dispensed IV CONTINUOUS 10/29/22 0600 10/29/22 0615 lactated ringers infusion 10/29/23 0614 Dispensed IV PRE-OP CONTINUOUS 10/29/22 0600 10/29/22 0714 lidocaine (Xylocaine Mpf) 1 % injection -- Sent INFILTRATION PRN 10/29/22 0739 10/29/22 0615 lidocaine PF (Xylocaine MPF) 1 % injection 0.5 mL 10/29/22 0611 Completed INFILTRATION PRE-OP ONCE 10/29/22 0600 10/29/22 0659 midazolam (Versed) injection -- Sent IV PRN 10/29/22 0737 10/29/22 0737 ondansetron (Zofran) injection -- Sent IV PRN 10/29/22 0738 10/29/22 0743 phenylephrine 100 mcg/mL injection -- Sent IV PRN 10/29/22 0746 10/29/22 0615 povidone-iodine (Betadine) 5 % solution 10/29/22 0610 Completed NA ONCE 10/29/22 0600 10/29/22 0725 propofol (Diprivan) injection -- Sent IV PRN 10/29/22 0739 10/29/22 0732 rocuronium (Zemuron) injection -- Sent IV PRN 10/29/22 0756 10/29/22 0600 scopolamine (Transderm-Scop) 1 patch See Hyperspace for full Linked Orders Report. 11/01/22 0614 Dispensed TD EVERY 72 HOURS 10/29/22 0600 10/29/22 0615 scopolamine (Transderm-Scop) 1 patch See Hyperspace for full Linked Orders Report. 10/29/22 1814 Verified TD PRE-OP ONCE 10/29/22 0600 10/29/22 0900 scopolamine patch placement confirmation See Hyperspace for full Linked Orders Report. -- Verified TD 2 TIMES DAILY 10/29/22 0600 10/29/22 0900 [facility]opolamine patch placement [facility] Orders Report. 10/29/23 0859 Verified TD 2 TIMES DAILY 10/29/22 0600 10/29/22 0725 succinylcholine (Anectine) injection -- Sent IV PRN 10/29/22 0756 10/29/22 0839 sugammadex (Bridion) injection -- Sent IV PRN 10/29/22 0839 10/29/22 0729 tranexamic acid (Cyklokapron) injection -- Sent IV PRN 10/29/22 0739 * No Diagnosis Codes entered * . No Known Allergies Vitals: Patient Vitals for the past 3 hrs: BP Temp Pulse Resp SpO2 Pain Rating Score #1 10/29/22 0625 138/85 97.1 ??F (36.2 ??C) 66 18 93 % 4 Lines, Drains, and Airways Type Details Placement Removal Peripheral IV Date: 10/29/22; Time: 637; Orientation: Right, Posterior; Location: Hand; Placed By:marina; Gauge: 18 Gauge; Locals: Injectable; Tolerance: Well 10/29/22637 by Marina Sierra RN ETT Date: 10/29/22; Time: 727; Placed By: LELA Sanchez; Vent: easy with oral airway mask; Induction: Modified Rapid Sequence; Blade Type: Video; Blade Size: 3; Laryngoscopy View: Grade 1 (full cords); Intubation Adjuncts: Stylet, Video Laryngoscope; Tube: Endotracheal Tube; Placement: Oral; Tube Type: Cuffed-inflated; Tube Size(mm): 8 MM; Depth of Insertion: 23 CM; Measured From:lips; Attempts: 1; Cuff Infated: Air; Cuff Vol(mL): 6 mL; Verified By: Direct visualization, Bilateral breath sounds, Chest Auscultation, CO2 Monitor 10/29/22727 by Elton Rai APRN-CRNA 10/29/22 0843 by Elton Rai APRN-CRNA Intraprocedure I/O Totals Intake lactated ringers infusion 900.00 mL Total Intake 900 mL Output Estimated Blood Loss 50 mL Total Output 50 mL Net Net Volume 850 mL Patient Transfer Location: PACU Transport Airway: spontaneous respirations and supplemental O2 Complications: None Handoff Given? Yes Checklist or Protocol - The spencer handoff elements that must be included in the transfer of care checklist include: 1. Identification of patient. 2. Identification of responsible practitioner (PACU nurse or advanced practitioner). 3. Discussion of pertinent medical history. 4. Discussion of the surgical/procedure course (procedure, reason for surgery, procedure performed). 5. Intraoperative anesthetic management and issue/concerns. 6. Expectations/Plans for the early post-procedure period. 7. Opportunity for questions and acknowledgement of understanding of report from the receiving PACUteam. LELA Sanchez documented in this encounter Plan of Treatment Not on file documented as of this encounter Procedures Procedure Name Priority Date/Time Associated Diagnosis Comments ENDOTRACHEAL TUBE NOTE Routine 10/29/2022 8:31 AM CDT NEURAXIAL BLOCK Routine 10/29/2022 8:29 AM CDT documented in this encounter Results * ETT LINE PERFORMABLE (10/29/2022 8:31 AM CDT) Narrative Elton Rai APRN-CRNA - 10/29/2022 8:31 AM CDT Elton Rai APRN-CRNA ? 10/29/2022 ??8:32 AM Endotracheal Tube Placement: ? Patient Location: OR. Intubation Event Date/Time: ??10/29/2022 7:28 AM Procedure: intubation (24359). Procedure Section: ?? Sedation: under general anesthesia. [...] for details. Staff: ?? Anesthesia Provider: ??Elton Rai, DENNYS-MUSIC INDUSTRY INTERN ?? - ?? performed the procedure Sammy Hess DO GENERAL ANESTHESIA O RDERABLES documented in this encounter Visit Diagnoses Not on filedocumented in this encounter Administered Medications Inactive Administered Medications - up to 3 most recent administrations Medication Order MAR Action Action Date Dose Rate Site BUPivacaine in dextrose (spinal) (Sensorcaine) injection Intrathecal, PRN, Starting on Sat10/29/22 at 0717, Until Sat10/29/22 at 0855, Anesthesia Intra-op $ Given 10/29/2022 7:17 AM CDT 2 mL ceFAZolin (Ancef) injection Intravenous, PRN, Starting on Sat10/29/22 at 0718, Until Sat10/29/22 at 0855, Anesthesia Intra-op $ Given 10/29/2022 7:18 AM CDT 3 g dexAMETHasone (Decadron) injection Intravenous, PRN, Starting on Sat10/29/22 at 0734, Until Sat10/29/22 at 0855, Anesthesia Intra-op $ Given 10/29/2022 7:34 AM CDT 8 mg fentaNYL (PF) (Sublimaze) injection Intravenous, PRN, Starting on Sat10/29/22 at 0704, Until Sat10/29/22 at 0855, Anesthesia Intra-op $ Given 10/29/2022 7:18 AM CDT 50 mcg $ Given 10/29/2022 7:04 AM CDT 50 mcg lidocaine (Xylocaine Mpf) 1 % injection Infiltration, PRN, Starting on Sat10/29/22 at 0714, Until Sat10/29/22 at 0855, Anesthesia Intra-op $ Given 10/29/2022 7:14 AM CDT 1 mL $ Given 10/29/2022 7:10 AM CDT 2 mL midazolam (Versed) injection Intravenous, PRN, Starting on Sat10/29/22 at 0659, Until Sat10/29/22 at 0855, Anesthesia Intra-op $ Given 10/29/2022 6:59 AM CDT 2 mg ondansetron (Zofran) injection Intravenous, PRN, Starting on Sat10/29/22 at 0737, Until Sat10/29/22 at 0855, Anesthesia Intra-op $ Given 10/29/2022 8:34 AM CDT 4 mg $ Given 10/29/2022 7:37 AM CDT 4 mg phenylephrine 100 mcg/mL injection Intravenous, PRN, Starting on Sat10/29/22 at 0743, Until Sat10/29/22 at 0855, Anesthesia Intra-op $ Given 10/29/2022 7:56 AM CDT 100 mcg $ Given 10/29/2022 7:43 AM CDT 100 mcg propofol (Diprivan) injection Intravenous, PRN, Starting on Sat10/29/22 at 0725, Until Sat10/29/22 at 0855, Anesthesia Intra-op $ Given 10/29/2022 7:25 AM CDT 200 mg rocuronium (Zemuron) injection Intravenous, PRN, Starting on Sat10/29/22 at 0732, Until Sat10/29/22 at 0855, Anesthesia Intra-op $ Given 10/29/2022 7:32 AM CDT 50 mg succinylcholine (Anectine) injection Intravenous, PRN, Starting on Sat10/29/22 at 0725, Until Sat10/29/22 at 0855, Anesthesia Intra-op $ Given 10/29/2022 7:25 AM CDT 100 mg sugammadex (Bridion) injection Intravenous, PRN, Starting on Sat10/29/22 at 0839, Until Sat10/29/22 at 0855, Anesthesia Intra-op $ Given 10/29/2022 8:39 AM CDT 200 mg tranexamic acid (Cyklokapron) injection Intravenous, PRN, Starting on Sat10/29/22 at 0729, Until Sat10/29/22 at 0855, Anesthesia Intra-op $ Given 10/29/2022 7:29 AM CDT 1,000 mg documented in this encounter Care Teams No Bake Molder Relationship Specialty Start Date End Date Kacey Lafleur, FLASH DRIER OPERATOR-PEOPLESOFT ANALYST [address], [address] [place] [address] PCP - General Nurse Practitioner Family 09/25/22 documented as of this encounter
--- OUTSIDE RECORDS SUMMARY | 2024-04-11 05:33 | XMS_ITS | Encounter Summary ---
Author Organization [facility] Address [address] [place] [address] Care Team Providers Care Outcome Analyst Name Role Phone Paul Ruiz MD Primary Care Provider [phone] Encounter Details Date Type Department Care Team (Late st Contact Info) Description 11/14/2021 1:35 PM CDT Ancillary Procedure [facility] Orthopedics - Radiology [id number] [place] [phone] Lynn Parmar PA-C [id number] [place] [phone] Pain in both knees, unspecified chronicity Social [...] aphy Narrative 11/14/2021 1:35 PM CDT Misa Bray, RT(R) ? 11/29/2021 ??1:35 PM See progress notes for results Lynn Parmar PA-C DIAGNOSTIC IM AGING ORDERABLES documented in this encounter Visit Diagnoses Diagnosis Pain in both knees, unspecified chronicity documented in this encounter Care Teams Outcome Analyst Relationship Specialty Start Date End Date Paul Ruiz MD [address] [place] [address] PCP - General Family Medicine 11/14/21 09/24/22 documented as of this encounter
--- OUTSIDE RECORDS SUMMARY | 2024-04-11 05:33 | XMS_ITS | Encounter Summary ---
Author Organization [facility] Address [address] [place] [address] Care Team Providers Care Angle Shear Set Up Operator Name Role Phone WongKacey martinez DENNYS-BANANA HANDLER Primary Care Provider + Reason for Visit * Auth/Cert (Routine) Specialty Diagnoses / Procedures Referred By Contac t Referred To Contact Referral ID Status Reason Start Date Expiration Date Visits Re quested Visits Authorized [id number] 1 1 Encounter Details Date Type Department Care Team (Late st Contact Info) Description 11/05/2022 8:00 AM CDT Home Care Visit [facility] at Home Home Health [address] [place] [id number] Fifi Garcia, LEN PT HOME VISIT Social [...] and heating? Not hard at all 10/30/2022 [facility] [place] [facility] Occupat ional Health - Occupational Stress [...] place to sleep or slept in a intermediate (including now)? No 10/30/2022 Sex and Gender Information Value Date Recorded Sex Assigned at Male 11/11/2021 8:34 AM CDT Gender Identity Male 11/11/2021 8:34 AM CDT Sexual Orientation Straight 11/11/2021 8: 34 AM CDT COVID-19 Exposure Response Date Recorded In the last 10 days, have nicole u been in contact with someone who was confirmed or suspected to have Coronavirus/COVID-19? No / Unsure 11/05/2022 8:20 AM CDT documented as of this encounter Last Filed Vital Signs Vital Sign Reading Time Taken Comments Blood Pressure 138/84 11/05/2022 9:39 AM CDT Pulse 68 11/05/2022 9:39 AM CDT Temperature 36.6 ??C (97.8 ??F) 11/05/2022 9:39 AM CD T Respiratory Rate 18 11/05/2022 9:39 AM CDT Oxygen Saturation 98% 11/05/2022 9:39 AM CDT Inhaled Oxygen Concentration - - [...] in 30 days. Gait Deficit Progressing No the patient is demonstrating independence with gait in home with use of rw for short distances. Patient maintains or increases range of motion without developing further contracture Description: - Increase range of motion of lower extremities to 115 degrees within 30 days. - Improve lower extremity function as evidenced by active range of motion of involved limb in 30 days. Decreased Range of Motion Progressing No 90 degrees with todays assessment Patient performs home exercise program Description: - Demonstrates good follow-through with progressive exercise program within 30 days. - Patient will be able to demonstrate home program within 30 days. - Patient will be able to perform home program with independent without device level of assist in 30 days. Home Exercise Program Progressing No compliance with current hep and use of ice and elevation. Interventions Intervention Associated Problem/Goal Status Variance Visit Notes Additional Home Health Orders Description: - Assess vital signs and notify MD of significant changes. Problem:X Additional Home Health Orders Goal:Additional Home Health Orders Completed met to date Gait Deficit Description: Gait training. Problem:Gait Deficit Goal:Patient improves ambulation and quality of gait Completed instructed and performed gait training with use of rw with mod vcs for improving wb onto lle for 100 feet intervals. repeated three times in home. Decreased ROM Description: - Therapeutic exercise. - [...] heel raises in reps of 10 ties. Home Exercise Program Description: - Establish home exercise program. - Instruct Patient in home exercise program. Problem:Home Exercise Program Goal:Patient performs home exercise program Completed Completed this visit: Upgrade home exercise program added sitting long arc quad, sitting knee flexion stretch and standing heel raises with support of the walker documented in this encounter Care Teams Angle Shear Set Up Operator Relationship Specialty Start Date End Date Kacey Lafleur, SYSTEMS PROTECTION TECHNICIAN-BANANA HANDLER [address] [facility], [address] [place] [address] PCP - General Nurse Practitioner Family 09/25/22 documented as of this encounter
--- OUTSIDE RECORDS SUMMARY | 2024-04-11 05:33 | XMS_ITS | Encounter Summary ---
Author Organization [facility] Health Address [address] [place] [address] Care Team Providers Care Crab Butcher Name Role Phone WongKacey martinez DENNYS-VIDEO CONTROL ENGINEER Primary Care Provider + Reason for Visit * Auth/Cert (Routine) Specialty Diagnoses / Procedures Referred By Contac t Referred To Contact Referral ID Status Reason Start Date Expiration Date Visits Re quested Visits Authorized [id number] 1 1 Encounter Details Date Type Department Care Team (Latest Contact Info) Description 11/01/2022 1:15 PM CDT Home Care Visit [facility] Health at Home Home Health [address], [address] [place] [id number] [place] [id number] [address] [facility] [address] [place] [address] Richa August RN SN OASIS START OF CARE Social History Tobacco Use Types Packs/Day Years [...] and heating? Not hard at all 10/30/2022 [facility] [place] of Occupat ional Health - Occupational Stress [...] place to sleep or slept in a fci (including now)? No 10/30/2022 Sex and Gender [...] Sign Reading Time Taken Comments Blood Pressure 142/80 11/01/2022 2:01 PM CDT Pulse 76 11/01/2022 2:00 PM CDT Temperature 36.3 ??C (97.3 ??F) 11/01/2022 2:00 PM CD T Respiratory Rate 16 11/01/2022 2:00 PM CDT Oxygen Saturation 99% 11/01/2022 2:00 PM CDT Inhaled Oxygen Concentration - - Weight - - Height - - Body Mass Index - - documented in this encounter OR Notes * Case Communication - Maribell Islas - 11/01/2022 3:51 PM CDT Medline order placed: #[id number] on 11/01 Requested by: Richa August Shipped to pt address - [address] [place] [address] Supplies: 1. SKIN STAPLE REMOVER/ [id number]/ 1 EACH 2. BORDERED GAUZE, 4x14/ [id number]/ 9 EACH documented in this encounter Miscellaneous Notes * Home Health - Richa August RN - 11/01/2022 12:51 PM CDT PATIENT ADMITTED TO [facility] FOLLOWING HOSPITALIZATION AT [facility] 10/29- 10/30 FOR LEFT TKA. PATIENT HAS HX OF CAD, HYPERLIPIDEMIA, THYROID DISORDER, AND SLEEP APNEA. [facility] INCLUDE SN AND PT. documented in this encounter Plan of Treatment Scheduled Referrals Name Type Priority Associated Diagnoses Orde r Schedule AMB REFERRAL TO HOME HEALTH CARE Outpatient Referral Routine Primary osteoarthritis of left knee Ordered: 10/30/2022 documented as of this encounter Visit Diagnoses Not on filedocumented in this encounter Home Health Visit - Care Plan Visit Details Visit Type -SN OASIS Start o f Care Discipline -Alf Problems Problem Description Start Date Status Goals [...] Than 92 X Additional Home Health Orders No Incision will demonstrate healing until closure without complications. Knowledge deficit and post op orthopedic management related to aftercare. No Interventions Intervention Associated Problem/Goal Status Variance Visit [...] demonstrate healing until closure without complications. Completed SN RECONCILED MEDS IN HOME WITH PATIENT AND HOSPITAL DC MED LIST WITH NO DISCREPANCIES FOUND. NO MAJOR DRUG INTERACTIONS DOCUMENTED. CURRENT MED LIST IN HOME. PATIENT MANAGES MEDS WITH ASSISTANCE FROM SPOUSE AT THIS TIME. SN INSTRUCTED ON MED NAMES/ DOSES/ FREQUENCY/ AND PURPOSE. INSTRUCTED TO TAKE ASA AND MELOXICAM WITH FOOD. SN INSTRUCTED ON NARCOTIC: OXYCODONE- MOST COMMON SIDE EFFECTS INCLUDE NV, DIZZINESS, DROWSINESS, CONSTIPATION, DRY MOUTH, DRY SKIN. TAKE WITH FOOD TO MINIMIZE GI UPSET. FOLLOW FALL PREVENTION MEASURES AT ALL TIMES TO DECREASE RISK OF FALLS DUE TO DIZZINESS/ DROWSINESS. DRINK PLENTY OF FLUID AND EAT FRUITS AND VEGETABLES TO HELP WITH CONSTIPATION. FREQUENT SIPS OF FLUID OR USE OF HARD CANDY TO HELP WITH DRY MOUTH. SN INSTRUCTED ON PAIN CONTROL MEASURES- REST, POSITION CHANGES, FREQUENT ICE AND ELEVATION, MUSIC THERAPY, DEEP BREATHING EXERCISES, TYLENOL TID X 10 DAYS AND OXYCODONE PRN. SN INSTRUCTED PATIENT TO CALL OFFICE WITH ANY S/S INFECTION- SOME REDNESS/ WARMTH/ EDEMA/ AND LOW GRADE TEMPS IS EXPECTED AFTER TKA. REPORT AN INCREASE IN INCISIONAL PAIN, ODOR, PURULENT DRAINAGE, SATURATION OF DRESSING/ INCREASING DRAINAGE, FEVERS OVER 101, OR S/S DVT SUCH PAIN/ REDNESS/ WARMTH/ SWELLING IN CALF. SN INSTRUCTED PATIENT SILVER DSG WILL REMAIN IN PLACE FOR 6-8 DAYS POST OP AND THAT PT WILL PERFORM/ DEMONSTRATE FIRST DSG CHANGE. INSTRUCTED PATIENT SILVER DSG IS WATERPROOF AND IF IS SAFE TO GET IN THE SHOWER, MAY COVER DSG WITH PRESS AND SEAL AND SHOWER. ONCE SILVER DSG DC'D AND DAILY BORDER GAUZE DSG CHANGE BEING PERFORMED, CAN NOT GET WET IF DRAINAGE, THIS DSG IS NOT WATERPROOF. documented in this encounter Care Teams Crab Butcher Relationship Specialty Start Date End Date Kacey Lafleur APRN-KEI [address] [facility], [address] [place] [address] PCP - General Nurse Practitioner Family 09/25/22 documented as of this encounter
--- OUTSIDE RECORDS SUMMARY | 2024-04-11 05:33 | XMS_ITS | Encounter Summary ---
Author Organization [facility] Address [address] [place] [address] Care Team Providers Care Hvac Controls Technician Name Role Phone WongKacey martinez DENNYS-PHOTOGRAPHIC AIDE Primary Care Provider + Encounter Details Date Type Department Care Team (Latest Contact Info) Description 09/25/2022 7:45 AM CDT - 09/25/2022 11:59 PM CDT Hospital Encounter [facility] [id number] [address] [place] [address] [place] [id number] [facility] [address] [address] [place] [address] Discharge Disposition: Home or Self Care Social History Tobacco Use Types Packs/Day Years [...] Sign Reading Time Taken Comments Blood Pressure 137/89 09/25/2022 8:13 AM CDT Pulse 65 09/25/2022 8:10 AM CDT Temperature 35.9 ??C (96.6 ??F) 09/25/2022 7:57 AM CD T Respiratory Rate - - Oxygen Saturation 96% 09/25/2022 8:10 AM CDT Inhaled Oxygen Concentration - - Weight 125 kg (275 lb 9.6 oz) 09/25/2022 7:57 AM CDT Height 180.3 cm (5' 11 ) 09/25/2022 7:57 AM CDT Body Mass Index 38.44 09/25/2022 7:57 AM CDT documented in this encounter Discharge Instructions * Patient Instructions* Johanna Walton RN - 09/25/2022 7:54 AM CDT Date of surgery: 10/29/2022 Arrival Time: 05:30 AM Time of surgery: 07:00 AM You will be notified if your arrival time changes Please report to the [facility] Building. Take the elevators across from outpatient registration to the second floor, exit left and enter the Outpatient Surgery waiting room. Sign in and beseated. Bring a copy of your living will or power of trade mark attorney form if we do not have a current copy. Day of surgery instructions Beginning at midnight the day of your surgery, NO SOLID FOODS. You may consume clear liquids after midnight until 2 hours before your scheduled arrival time to the hospital. Clear liquid diet includes: Any liquid you can see through, water, flavored water (coconut water OK), hot or ice tea, black coffee, clear fat free broth, apple juice, cranberry juice, grape juice, gelatin, ice pops without fruit pieces, pulp or seeds. What is NOT allowed on Clear Liquid diet Liquids you cannot see through, no milk, creamer or sugar in coffee, no milk products, almond milk,soy milk, no orange juice, grapefruit juice, tomato juice, and no carbonated or alcoholic beverages. No gum, mints, or candy. You may brush your teeth, swish and spit. No tobacco products after midnight and avoid alcohol 24 hours prior to surgery. If you use a CPAP/BiPAP machine, please bring it with you on the day of surgery (for overnight stay). Do not bring or wear jewelry (including body piercings). Leave valuables at home Bring your eyeglasses. Do not wear contacts. Take a shower using the antibacterial soap, following the instructions given. Dress in clean clothing appropriate to wear after your surgery. Arrange for a responsible adult to bring you to the hospital, and to drive you home. Bring you insurance information and proof of identification, such as your tier truck driver's license, with you to the hospital, and any necessary co-insurance. Leave weapons at home (pocket knives, sharps, guns, pepper spray, etc). If you are having any problems on the day of surgery, please call the Ambulatory Surgery desk at [phone]. You will not be required to have a COVID test prior to surgery. However, if you develop any symptoms of COVID 19 such as new or worsening cough, shortness of breath, loss of taste/smell, headache, sore throat, body aches, OR have a significant exposure to COVID 19 please contact your surgeons office immediately. A REMINDER, YOU SHOULD PRACTICE SOCIAL DISTANCING FOR AT LEAST 7 DAYS PRIOR TO SURGERY. COVID Related Hospital Precautions When you arrive to the hospital the day of your surgery you will enter the [facility]. Masking optional and no longer required. VISITOR GUIDELINES: Visiting hours once you are admitted to the hospital after surgery are from 8AM-8PM. PREOPERATIVE CHLORHEXIDINE (CHG) ? BATHING INSTRUCTIONS Before surgery, you can play an important role in your own health. Because skin is not sterile, we need to be sure that your skin is as free of germs as possible before surgery. You can reduce the number of germs on your skin by carefully washing before surgery. Following these instructions will help you be sure that your skin is clean before surgery IMPORTANT: You will need to shower with a special soap called Chlorohexidine gluconate (CHG) ?. A common brand name for this soap is Hibiclens, but any brand is acceptable to use. The soap will come in a liquid. This may be purchased at any local pharmacy. If you are allergic to Chlorohexidine use Dial antibacterial soap for your shower/bath. Shower or bathe with CHG? the night before and the morning of surgery. Do not shave the area of your body where surgery will be performed. Wash your hair usual with your normal shampoo. Rinse your hair and body thoroughly after you shampoo remove all shampoo residues. Apply the CHG? to the entire body ONLY FROM THE NECK DOWN. Do not use CHG? near your eyes or ears to avoid permanent injury to those areas. Wash thoroughly, paying special attention to the area where surgery will be performed. Turn the water off to prevent rinsing the soap off too soon. Wash your body gently for five (5) minutes. Do not scrub your skin too hard. Do not wash with your regular soap after CHG? is used. Turn the water back on and rinse your body thoroughly. Pat yourself dry with a clean, soft towel. Do not use lotion, cream, or powder. Make sure clean linens are on your bed the night prior to surgery. Wear clean clothes. Repeat this process the morning of surgery using ONLY CHG soap. * Not to be used by people allergic to Chlorhexidine INCENTIVE SPIROMETER The following provides an overview of how you will use the spirometer after your surgery. Our goal is for you to become familiar with usage prior to your surgery date, as this improves the ability touse properly. Please attempt to use 2-3 times daily in the week leading up to your surgery date. DO NOT bring this spirometer with you the day of surgery, as you will be provided a new one after your surgery. Using your incentive spirometer after surgery will help your lungs clear and will help keep your lungs active throughout the recovery process, as if you were performing your daily activities. How to use the incentive spirometer: 1. Sit on the edge of your bed if possible, or sit up as far as you can in bed. 2. Hold the incentive spirometer in an upright position. 3. Place the mouthpiece in your mouth and seal your lips tightly around it. 4. Breathe in slowly and as deeply as possible. Notice the blue piston rising toward the top of thecolumn. The blue indicator on the right should float between the two blue arrows. 5. Hold your breath as long as possible. Then exhale slowly and allow the piston to fall to fall tothe bottom of the column. 6. Rest for a few seconds and repeat steps one to 5 at least 10 times every hour. 7. Position the blue indicator on the left side of the spirometer to show your best effort. Use theindicator as a goal to work toward during each slow deep breath. 8. After each set of 10 deep breaths. Cough to be sure your lungs are clear. If you have an incision, support your incision when coughing by placing a pillow firmly against it. 9. Once you are able to get out of bed safely, take frequent walks and practice the cough. Medication Instructions for Surgery Current Outpatient Medications Medication Sig Note Dispense Refill aspirin EC (ECOTRIN) 81 MG tablet Take 1 (one) tablet by mouth once daily 09/25/2022: Confirm with telecom billing analyst when it is ok to stop taking prior to surgery. atorvastatin (LIPITOR) 80 MG tablet Take 1 (one) tablet by mouth once daily carvedilol (COREG) 3.125 MG tablet Take 1 (one) tablet by mouth 2 times daily 09/25/2022: Take morning of surgery. Coenzyme Q10 (Co Q-10) 100 MG Take 1 (one) capsule by mouth once daily 09/25/2022: Stop 10 days prior to surgery. ezetimibe (Zetia) 10 MG tablet Take 1 (one) tablet by mouth once daily levothyroxine (SYNTHROID) 125 MCG tablet Take 1 (one) tablet by mouth every morning 09/25/2022: Takemorning of surgery. meloxicam (Mobic) 15 MG tablet Take 1 (one) tablet by mouth once daily 09/25/2022: Stop 10 days prior to surgery. 30 tablet 5 Multiple Vitamins-Minerals (CENTRUM SILVER) TABS Take 1 (one) tablet by mouth once daily 09/25/2022:Stop 10 days prior to surgery. potassium citrate (Urocit K 10) 10 MEQ (1080 MG) tablet Take 1 (one) tablet by mouth 3 times daily with meals vitamin D3 (CHOLECALCIFEROL) 75 MCG (3000 UT) tablet Take 1 (one) tablet by mouth once daily If you are taking any NSAIDs (Advil, Ibuprofen, Naproxen, Aleve, Motrin, Meloxicam, etc.), please stop 10 days prior to surgery as these are considered blood thinning medications. documented in this encounter Medications at Time [...] mouth every morning Reasons: Underactive Thyroid 10/14/1999 Multiple Vitamins-Minerals (CENTRUM SILVER) TABSIndications:supp lement Take [...] once full dose therapy completed. 10/30/2022 12/11/2022 aspirin EC (ECOTRIN) 81 MG tablet Take 1 (one) tablet by mouth once daily 10/14/2020 10/30/2022 meloxicam (Mobic) 15 MG tablet Take 1 (one) tablet by mouth once daily 30 tablet 5 04/17/2022 10/22/2022 omeprazole (PriLOSEC) 20 MG capsuleIndications:H eartburn Take 1 (one) capsule by mouth once daily for 42 days 30 capsule 10/30/2022 12/11/2022 documented as of this encounter Progress Notes * Perla Elise RN - 09/25/2022 9:47 AM CDT Labs from SEC visit faxed to PCP via [employer] per instructions. * Camilla Stevens APRN-KEI - 09/25/2022 7:47 AM CDT PRESURGICAL OPTIMIZATION EVALUATION Patient Name: Radha Zhang : 1955 SUBJECTIVE: Radha Zhang is a 66 year old y.o. male presenting [facility]. He isscheduled for the followin10/29/22 ARTHROPLASTY LEFT TOTAL KNEE Elton Riggs MD Denies any problems with anesthesia in the past. Denies any family history of anesthetic complications. CAD--s/p NSTEMI in October 2020 with placement of TAWANNA to mid circumflex HTN HLD -managed by cardiology Dr. Shahid---proceed with the upcoming left knee surgery without needing further ischemic evaluation. -echo 2020 60-65%, mild aortic regurgitation -compliant with carvedilol, atorvastatin, zetia and ASA 81 mg BP Readings from Last 3 Encounters: 09/25/22 137/89 CORIN- using nightly CPAP Prediabetes -managed by PCP -A1c 08/08/2022 5.8 -working on lifestyle modifications Hypothyroidism -managed by PCP -compliant with levothyroxine Patient denies history of asthma, COPD, PE, CHF, heart murmur, heart arrhythmia, cardiac devices, stroke, seizure, neuromuscular disease, bleeding/clotting disorder, diabetes, kidney disease, liver disease. PCP is Kacey Lafleur APRN -- pt to call PCP for preoperative medical evaluation. Review of Systems: Denies chest pain, palpitations, irregular heart beat, syncope, OLIVEROS, orthopnea, PND, or swelling ofthe feet or ankles. No cough, wheezing or shortness of breath Denies rash, open or unhealed sores and lesions Denies URI's in the past 4-6 weeks Denies reflux Functional Status Assessment: METS (Metabolic Equivalents of Task) Score: > or equal to 4 METs Walking 30 minutes 4 days a week without symptoms of chest pain or SOB. PMH: Past Medical History: Diagnosis Date ??? Atherosclerosis of coronary artery ??? Disorder of thyroid ??? Pure hypercholesterolemia ??? Sleep apnea CPAP PSH: Past Surgical History: Procedure Laterality Date ??? ANGIOPLASTY ??? Lithotripsy Allergies: No Known Allergies Current Medications: Outpatient Medications Marked as Taking for the 09/25/22 encounter (Hospital Encounter) with [facility] Medication Sig ??? aspirin EC (ECOTRIN) 81 MG tablet [...] morning ??? meloxicam (Mobic) 15 MG tablet Take 1 (one) tablet by mouth once daily ??? Multiple Vitamins-Minerals (CENTRUM SILVER) TABS Take 1 (one) tablet by mouth once daily ??? potassium citrate (Urocit K 10) 10 MEQ (1080 MG) tablet Take 1 (one) tablet by mouth 3 times daily with meals ??? vitamin D3 (CHOLECALCIFEROL) 75 MCG (3000 UT) tablet Take 1 (one) tablet by mouth once daily OBJECTIVE: BP 137/89 Pulse 65 Temp 96.6 ??F (35.9 ??C) Ht 1.803 m (5' 11 ) Wt 125 kg (275 lb 9.6 oz) SpO2 96% Physical Exam: Airway/Mallamapati Score: deferred due to masking/COVID precautions Mouth Opening Distance: fingerwidths deferred due to masking/COVID precautions Neck ROM: normal range of motion and supple Teeth: deferred due to masking/COVID precautions. Patient denies removable dental devices. Denies chipped/loose/broken teeth. General appearance - alert, well appearing, and in no distress Mental status - alert, oriented to person, place, and time Chest - clear to auscultation, no wheezes, rales or rhonchi, symmetric air entry Heart - normal rate, regular rhythm, normal S1, S2, no murmurs, rubs, clicks or gallops No edema to BLE Pertinent Diagnostic Tests: Recent Labs Component Name 09/25/22 0756 WBC 4.4 RBC 4.75 HGB 14.6 HCT 43.4 MCV 91.4 MCHC 33.6 PLTCOUNT 229 NEUTPCT 64.7 LYMPHPCT 19.2* BASOPHILPCT 1.1 GRANSIMMPCT 0.7 NEUTABS 2.86 LYMPHABS 0.85* BASOABS 0.05 Recent Labs Component Name 09/25/22 0756 SODIUM 140 POTASSIUM 4.4 CHLORIDE 107 CO2 25 BUN 24 CREATININE 1.27* GLUCOSE 94 CALCIUM 9.2 ALT 31 ALKPHOS 66 AST 19 TBIL 1.2 TPROT 6.7 EGFR 62* Echo 11/17/2020 The left ventricular size is normal. The left ventricular systolic function is normal. Estimated left ventricular ejection fraction is 60-65%. Mild concentric left ventricular hypertrophy. Left ventricular diastolic function is not reliably assessed. The right ventricular size is mildly enlarged. Right ventricular systolic function is normal. Unable to reliably quantitate pulmonary systolic pressure. Mild aortic regurgitation. A/P 1. Encounter for other pre-procedural examination All labs completed today were discussed with patient during clinic visit. Thoroughly discussed withpatient that all labs done today were obtained for preoperative screening purposes, and further management/recommendations and additional work-up (if necessary) will be deferred to the patient's primary care provider. All labwork done today will be sent to patient's primary care provider for continuity/coordination of care. Preoperative Domain Results Recommendations BMI BMI (Calculated): 38.46 Initiate anti-inflammatory ( Mediterranean ) style diet in the perioperative period, unless otherwise contraindicated. Nutrition Recent Labs Component Name 09/25/22 0756 ALBUMIN 4.3 Anti-inflammatory ( Mediterranean ) style diet discussed/encouraged perioperatively. Educational resource provided. Diabetes A1c 08/08/2022 5.8 Continue following with established PCP or national sales trainer for ongoing care/management of prediabetes Discussed with patient that overall good control of blood sugars and diabetes perioperatively certainly correlates with improve healing postoperatively. Cardiac Records reviewed EKG obtained today 09/25/2022 per anesthesia team. Cardiology to complete final confirmatory read ofEKG. Will defer to both PCP and anesthesia team to determine if any additional cardiac testing/work-up is necessary prior to upcoming scheduled surgery. Pulmonary /CORIN +CORIN-compliant with CPAP Incentive Spirometer (IS) provided and patient was instructed regarding use. Encouraged daily use of IS prior to surgery. Smoking Social History Tobacco Use Smoking Status Never Smokeless Tobacco Never Vaping Use Vaping Status Never Used N/A Infection Prevention Patient denies history of MRSA Educated on preoperative CHG bathing. Encouraged good hygiene and handwashing preoperatively. Chronic narcotic use No chronic narcotic use. N/A Preoperative testing CBC CMP results reviewed See notes above Reviewed current preoperative COVID testing protocols with patient. Preoperative/Day of Surgery medication instructions given to patient by RN per surgeon/anesthesia standing orders. AVS printed and given to patient. see AVS for additional education and information provided to patient. ARTURO Elias documented in this encounter Plan of Treatment Not on file documented as of this encounter Procedures Procedure Name Priority Date/Time Associated Diagnosis Comments EKG 12-LEAD Routine 09/25/2022 8:06 AM CDT Preoperative examination CBC W AUTO DIFFERENTIAL Routine 09/25/2022 7:56 AM CDT Preoperative examination COMPREHENSIVE METABOLIC PANEL STAT 09/25/2022 7:56 AM CDT Preoperative examination documented in this encounter Results * EKG 12-LEAD (09/25/2022 8:06 AM CDT) Ventricular Rate 61 BPM [facility] Atrial Rate 61 BPM [facility] P-R Interval 194 ms [facility] QRS Duration ms 90 ms [facility] Q-T Interval ms 398 ms [facility] QTC Calculation (Bezet) 400 ms [facility] Calculated P [place] 60 degrees [facility] Calculated R [place] -6 degrees [facility] Calculated T [place] 21 degrees [facility] Interpretation EKG Normal sinus rhythm Low voltage QRS Borderline ECG No previous ECGs available Confirmed by YU SALAZAR MD ([id number]) on 09/25/2022 9:42:14 AM [facility] 09/25/2022 8:06 AM CDT 09/25/2022 9:42 AM CDT Vida Sherman DO ECG ORDERABLES [facility] * (ABNORMAL) COMPREHENSIVE METABOLIC PANEL (09/25/2022 7:56 AM CDT) Glucose 94 70 - 105 mg/dL 09/25/2022 8:20 AM CDT [facility] Sodium 140 136 - 145 mmol/L 09/25/2022 8:20 AM CDT [facility] Potassium 4.4 3.5 - 5.1 mmol/L 09/25/2022 8:20 AM CDT [facility] Chloride 107 98 - 107 mmol/L 09/25/2022 8:20 AM CDT [facility] CO2 25 23 - 31 mmol/L 09/25/2022 8:20 AM CDT [facility] Calcium 9.2 8.4 - 10.4 mg/dL 09/25/2022 8:20 AM CDT [facility] Anion Gap 8 8 - 18 mmol/L 09/25/2022 8:20 AM CDT [facility] BUN 24 8.4 - 25.7 mg/dL 09/25/2022 8:20 AM CDT [facility] Creatinine 1.27(H) 0.72 - 1.25 mg/dL 09/25/2022 8:20 AM CDT [facility] Alkaline Phosphatase 66 40 - 150 U/L 09/25/2022 8:20 AM CDT [facility] ALT 31 0 - 61 U/L 09/25/2022 8:20 AM CDT [facility] AST 19 5 - 34 U/L 09/25/2022 8:20 AM CDT [facility] Protein Total 6.7 6.4 - 8.3 gm/dL 09/25/2022 8:20 AM CDT [facility] Albumin 4.3 3.2 - 4.6 gm/dL 09/25/2022 8:20 AM CDT [facility] Bilirubin Total 1.2 0.2 - 1.2 mg/dL 09/25/2022 8:20 AM CDT [facility] eGFR by CKD-EPI 62(L) >=90 mL/min/1.7 3 m2 09/25/2022 8:20 AM CDT [facility] Blood BLOOD SPECIMEN / Unknown Venipuncture / Unknown 09/25/2022 7:56 AM CDT 09/25/2022 8:02 AM CDT Camilla Stevens TRANSPORTATION TECHNICIAN-PHOTOGRAPHIC AIDE LAB - CHEMIS TRY ORDERABLES [facility] [address] [place] [address] * (ABNORMAL) CBC W AUTO DIFFERENTIAL (09/25/2022 7:56 AM CDT) WBC 4.4 4.4 - 10.7 x10E9/L 09/25/2022 8:07 AM CDT [facility] WBC Corrected 09/25/2022 8:07 AM CDT [facility] RBC 4.75 3.80 - 5.40 x10E12/L 09/25/2022 8:07 AM CDT [facility] Hemoglobin 14.6 12.0 - 17.6 gm/dL 09/25/2022 8:07 AM CDT [facility] Hematocrit 43.4 35.2 - 51.7 % 09/25/2022 8:07 AM CDT [facility] MCV 91.4 80.7 - 98.3 fl 09/25/2022 8:07 AM CDT [facility] MCH 30.7 26.7 - 34.0 pg 09/25/2022 8:07 AM CDT [facility] MCHC 33.6 30.8 - 35.9 gm/dL 09/25/2022 8:07 AM CDT [facility] Platelet Count 229 153 - 416 x10E9/L 09/25/2022 8:07 AM CDT [facility] RDW-CV 13.2 12.1 - 14.9 % 09/25/2022 8:07 AM CDT [facility] MPV 8.7(L) 9.4 - 12.9 fl 09/25/2022 8:07 AM CDT [facility] Neutrophils % 64.7 44.0 - 73.0 % 09/25/2022 8:07 AM CDT [facility] Lymphocytes % 19.2(L) 20.0 - 43.0 % 09/25/2022 8:07 AM CDT [facility] Monocytes % 9.5 5.0 - 13.0 % 09/25/2022 8:07 AM CDT [facility] Eosinophils % 4.8 0.0 - 6.0 % 09/25/2022 8:07 AM CDT [facility] Basophils % 1.1 0.0 - 2.0 % 09/25/2022 8:07 AM CDT [facility] Immature Granulocytes 0.7 0 - 1 % 09/25/2022 8:07 AM CDT [facility] Neutrophil Absolute 2.86 2.01 - 7.14 x10E9/L 09/25/2022 8:07 AM CDT [facility] Lymphocytes Absolute 0.85(L) 1.07 - 3.94 x10E9/L 09/25/2022 8:07 AM CDT [facility] Monocytes Absolute 0.42 0.26 - 1.07 x10E9/L 09/25/2022 8:07 AM CDT [facility] Eosinophils Absolute 0.21 0 - 0.47 x10E9/L 09/25/2022 8:07 AM CDT [facility] Basophils Absolute 0.05 0 - 0.08 x10E9/L 09/25/2022 8:07 AM CDT [facility] Immature Granulocytes Absolute 0.03 0.00 - 0.06 x10E9/L 09/25/2022 8:07 AM CDT [facility] nRBC Auto 0 /100 WBC 09/25/2022 8:07 AM CDT [facility] Blood BLOOD SPECIMEN / Unknown Venipuncture / Unknown 09/25/2022 7:56 AM CDT 09/25/2022 8:02 AM CDT Camilla Stevens TRANSPORTATION TECHNICIAN-PHOTOGRAPHIC AIDE LAB - HEMATO LOGY ORDERABLES [facility] [address] [place] [address] documented in this encounter Visit Diagnoses Diagnosis Preoperative examination- Primary Preoperative examination, unspecified documented in this encounter Care Teams Hvac Controls Technician Relationship Specialty Start Date End Date Kacey Lafleur APRN-PHOTOGRAPHIC AIDE [address], [address] [place] [address] PCP - General Nurse Practitioner Family 09/25/22 documented as of this encounter
--- OUTSIDE RECORDS SUMMARY | 2024-04-11 05:33 | XMS_ITS | Encounter Summary ---
Author Organization [facility] Address [address] [place] [address] Care Team Providers Care Pharmacy Technician Instructor Name Role Phone WongKacey martinez DENNYS-PHOTOENGRAVING APPRENTICE Primary Care Provider + Reason for Visit * Reason Onset Date Comments MEDICATION REFILL 10/30/2022 Encounter Details Date Type Department Care Team (Late Contact Info) Description 10/30/2022 Refill [facility] PHYS STANDARD [address] [place] [address] [place] [address] [address] [address] MEDICATION REFILL Social History Tobacco Use Types Packs/Day Years [...] and heating? Not hard at all 10/30/2022 [facility] [place] [facility] Occupat ional Health - Occupational Stress [...] encounter Miscellaneous Notes * Telephone Encounter - Skye Silvestre RN - 10/30/2022 8:43 AM CDT Refill medication for discharge. documented in this encounter Plan of Treatment Not on file documented as of this encounter Visit Diagnoses Diagnosis Primary osteoarthritis of left knee- Primary Primary localized osteoarthrosis, lower leg documented in this encounter Care Teams Pharmacy Technician Instructor Relationship Specialty Start Date End Date Kacey Lafleur, PAYROLL COORDINATOR-PHOTOENGRAVING APPRENTICE [address], [address] [place] [address] PCP - General Nurse Practitioner Family 09/25/22 documented as of this encounter
--- OUTSIDE RECORDS SUMMARY | 2024-04-11 05:33 | XMS_ITS | Encounter Summary ---
Author Organization [facility] Address [address] [place] [address] Care Team Providers Care Card Lacer Name Role Phone Jennietemi Kacey NOYOLA-ALIGNER BARREL AND RECEIVER Primary Care Provider + Reason for Visit * Reason Comments Refill Request Encounter Details Date Type Department Care Team (Late st Contact Info) Description 10/20/2022 Refill [facility] [address] [address] Carlton Mayo PA-C [address] [address] Refill Request Social History Tobacco Use Types [...] encounter Miscellaneous Notes * Telephone Encounter - Isabella Sinha MA - 10/22/2022 10:37 AM CDT Meloxicam refill has been sent to Dr. Riggs for authorization. It will be sent electronically to [facility] once signed. documented in this encounter Plan of Treatment Not on file documented as of this encounter Visit Diagnoses Not on filedocumented in this encounter Care Teams Card Lacer Relationship Specialty Start Date End Date Kacey Lafleur APRN-KEI [address], [address] [place] [address] PCP - General Nurse Practitioner Family 09/25/22 documented as of this encounter
--- OUTSIDE RECORDS SUMMARY | 2024-04-11 05:33 | XMS_ITS | Encounter Summary ---
Author Organization [facility] Address [address] [facility] [place] [address] Care Team Providers Care Water Valve Repairer Name Role Phone Jennietemi Kacey NOYOLA-CRICKET COACH Primary Care Provider + Encounter Details Date Type Department Care Team (Latest Contact Info) Description 11/05/2022 Travel Social History Tobacco Use Types Packs/Day [...] and heating? Not hard at all 10/30/2022 [facility] [place] of Occupat ional Health - Occupational Stress [...] place to sleep or slept in a skilled nursing (including now)? No 10/30/2022 Sex and Gender [...] on filedocumented in this encounter Care Teams Water Valve Repairer Relationship Specialty Start Date End Date Kacey Lafleur APRN-KEI [address], [address] [place] [address] PCP - General Nurse Practitioner Family 09/25/22 documented as of this encounter
--- OUTSIDE RECORDS SUMMARY | 2024-04-11 05:34 | XMS_ITS | Encounter Summary ---
Author Organization [facility] Address [address] [place] [address]. [place], [place] [id number] [place] [address] Care Team Providers Care Customer Resolution Specialist Name Role Phone Amado Mathew Primary Care Provider [phone] Reason for Visit * Reason Comments Follow Up 6 month follow up Hyperlipidemia Hypothyroidism Encounter Details Date Type Department Care Team (Latest Contact Info) Description 02/05/2024 9:20 AM T Office Visit [facility] Family & Internal Medicine [facility] [address] [place] [address] Amado Mathew [place] [id number] [place] [address] Follow Up (6 month follow up); Hyperlipidemia; Hypothyroidism Social History Tobacco Use Types Packs/Day Years Used Date Smoking Tobacco: Never Passive Smoke Exposure: Past Smokeless Tobacco: Never Tobacco Cessation:Counseling Given: No 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 2-4 times a month 08/06/2023 Q2: How many drinks containi ng alcohol do you have on a typical day when you are drinking? 1 or 2 08/06/2023 Q3: How often do you have si x or more drinks on one occasion? 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 Sexual Orientation Straight 06/28/2021 10 :21 AM CDT documented as of this encounter Last Filed Vital Signs Vital Sign Reading Time Taken Comments Blood Pressure 134/82 02/05/2024 9:34 AM CDT Pulse 64 02/05/2024 9:31 AM CDT Temperature 36.6 ??C (97.8 ??F) 02/05/2024 9:31 AM CD T Respiratory Rate 16 02/05/2024 9:31 AM CDT Oxygen Saturation 98% 02/05/2024 9:31 AM CDT Inhaled Oxygen Concentration - - Weight 121.6 kg (268 lb) 02/05/2024 9:31 AM CDT Height 182.9 cm (6') 02/05/2024 9:31 AM CDT Body Mass Index 36.35 02/05/2024 9:31 AM CDT documented in this encounter Progress Notes * KHUSHBU Chang - 02/05/2024 9:20 AM CDT Reason for Visit: Follow Up (6 month follow up), Hyperlipidemia, and Hypothyroidism History of Present Illness: 68-year-old male here for 6-month follow-up on hypertension hyperlipidemia and hypothyroidism. 1. Prediabetes: Patient's last hemoglobin A1c was 6.5, now is 6.1. He has tried cutting out carbohydrates and sugar from the diet. Him and his walk 2 miles 4 times a week as well. 2. Hypertension controlled with carvedilol 3.125 mg twice a day. Patient also following up with cardiology status post MT some years back. Has not had any further chest pain shortness of breath or dyspnea on exertion. He does have nitroglycerin tablets at home has never used them. 3. Hyperlipidemia controlled with atorvastatin 80 mg daily denies muscle weakness or weakness. Lipid panel was reviewed from January showing excellent lipid profile. LDL less than 70. 4. Hypothyroidism: Take patient taking Synthroid 125 mcg daily. TSH is slightly below the lower limits of normal however patient feels fine denies any heart palpitations, hot or cold intolerance, weight gain or loss. Follow Up Hyperlipidemia Exacerbating diseases include hypothyroidism. Hypothyroidism ROS: Review of Systems Medications: Current Outpatient Medications: amoxicillin (AMOXIL) 500 MG capsule, Take 1 capsule (500 mg total) by mouth. Indications: DENTAL USE ONLY, Disp: , Rfl: ASPIRIN EC 81 MG tablet, Take 1 tablet (81 mg total) by mouth daily., Disp: , Rfl: atorvastatin (LIPITOR) 80 MG tablet, TAKE 1 TABLET BY MOUTH NIGHTLY AT BEDTIME., Disp: 90 tablet, Rfl: 3 carvedilol (COREG) 3.125 MG tablet, TAKE 1 TABLET BY MOUTH TWICE A DAY, Disp: 180 tablet, Rfl: 3 Coenzyme Q10 (COQ10) 100 MG Cap, Take by mouth daily., Disp: , Rfl: ezetimibe (ZETIA) 10 MG tablet, take 1 tablet by mouth every day, Disp: 90 tablet, Rfl: 2 levothyroxine (SYNTHROID) 125 MCG tablet, Take 1 tablet (125 mcg total) by mouth every morning., Disp: 90 tablet, Rfl: 1 Multiple Vitamins-Minerals (CENTRUM SILVER) Tab, Take 1 tablet by mouth daily. , Disp: , Rfl: nitroglycerin 0.4 MG SL tablet, Place 1 tablet (0.4 mg total) under the tongue., Disp: , Rfl: potassium citrate CR 10 MEQ (1080 MG) tablet, Take 1 tablet (10 mEq total) by mouth 3 (three) timesdaily with meals., Disp: , Rfl: vitamin D3, cholecalciferol, 75 MCG (3000 UT) Tab tablet, Take 1 tablet (3,000 Units total) by mouth daily., Disp: , Rfl: Review of patient's allergies indicates: No Known Allergies Past Medical History: Diagnosis Date Arthritis CAD (coronary artery disease) COVID-19 vaccine administered 2020 [employer] Hypercholesterolemia Hypothyroidism, unspecified Influenza vaccine refused 12/13/2020 Kidney stones NSTEMI (non-ST elevated myocardial infarction) ([facility]) Obesity, unspecified Prediabetes Trigger finger right middle finger Past Surgical History: Procedure Laterality Date CARDIAC STENTS 10/14/2020 HAND SURGERY Right 01/17/2024 Middle finger trigger release by Dr. 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) Smokeless tobacco: Never Vaping Use Vaping status: Never Used Substance and Sexual Activity Alcohol use: Not Currently Comment: occasional glass of wine Drug use: Never Sexual activity: Not Currently control/protection: Post-menopausal Other Topics Concern Caffeine Concern No Special Diet No Exercise Yes Social History Narrative Lives at home with Social Drivers of Health Financial Resource Strain: Low Risk (10/30/2022) Received from [facility] Overall Financial Resource Strain (CARDIA) Difficulty of Paying Living Expenses: Not hard at all Food Insecurity: No Food Insecurity (10/30/2022) Received from [facility] Hunger Vital Sign Worried About Running Out of Food in the Last Year: Never true Ran Out of Food in the Last Year: Never true Transportation Needs: No Transportation Needs (11/16/2022) Received from [facility] [id number]: Transportation Lack of Transportation (Medical): No Lack of Transportation (Non-Medical): No Patient Unable or Declines to Respond: No Stress: No Stress Concern Present (10/30/2022) Received from [facility] of Occupational Health - Occupational Stress Questionnaire Feeling of Stress : Not at all Social Connections: Feeling Socially Integrated (11/16/2022) Received from [facility] D0700: Social Isolation Frequency of experiencing loneliness or isolation: Never Housing Stability: Low Risk (10/30/2022) Received from [facility] Housing Stability Vital Sign Unable to Pay for Housing in the Last Year: No Number of Places Lived in the Last Year: 1 Unstable Housing in the Last Year: No E-Cigarettes Questions Responses E-Cigarette Use Never User E-cigarette/Vaping Substances Questions Responses Nicotine No THC No CBD No Flavoring No E-cigarette/Vaping Devices Questions Responses Disposable No Pre-filled or Refillable Cartridge No Refillable Tank No Pre-filled Pod No Family History Problem Relation Name Age of Onset Diabetes Mother Shantal Zhang Heart Disease Father Rui Zhang Open Heart Father Rui Zhang Diabetes Brother Greyson Zhang Heart Disease Brother Greyson Zhang Kidney Disease Brother Greyson Zhang Other (cardiac stent) Brother Greyson Zhang No Known Problems Daughter No Known Problems Son No Known Problems Maternal Aunt No Known Problems Maternal Uncle No Known Problems Paternal Aunt No Known Problems Paternal Uncle No Known Problems Maternal Grandmother No Known Problems Maternal Grandfather Heart Attack Paternal Grandmother Heart Attack Paternal Grandfather No Known Problems Other Family Status Relation Name Status Mother Shantal Zhang Father Rui Zhang Brother Greyson Zhang (Not Specified) Daughter (Not Specified) Son (Not Specified) MAunt (Not Specified) MUncle (Not Specified) PAunt (Not Specified) PUncle (Not Specified) MGM (Not Specified) MGF (Not Specified) PGM (Not Specified) PGF (Not Specified) Other (Not Specified) No partnership data on file PHYSICAL EXAM Filed Vitals: 02/05/24 0931 02/05/24 0934 BP: (!) 154/85 134/82 Pulse: 64 Resp: 16 Temp: 97.8 ??F (36.6 ??C) TempSrc: Core SpO2: 98% Weight: 121.6 kg (268 lb) Height: 1.829 m (6') Diagnoses/Impression: 1. Prediabetes HEMOGLOBIN, GLYCOSYLATED 2. Other specified hypothyroidism levothyroxine (SYNTHROID) 125 MCG tablet TSH W/REFLEX 3. Vitamin D deficiency 4. Mixed hyperlipidemia 5. Hypertension, unspecified type Recommendations and Plan: Continue all medications as prescribed will repeat A1c and TSH prior to next appointment. Orders Placed This Encounter HEMOGLOBIN, GLYCOSYLATED TSH W/REFLEX levothyroxine (SYNTHROID) 125 MCG tablet Reviewed and updated this visit by provider: KHUSHBU CHANG Referring Provider: No ref. 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 Office Visit [facility] [address] [place] [address] Dale Shahid MD [facility], [address] [place] [address] Scheduled Orders Name Type Priority Associated Diagnoses Orde r Schedule HEMOGLOBIN, GLYCOSYLATED Lab Routine Prediabetes Expected: 07/27/2024, Expires: 02/04/2025 TSH W/REFLEX Lab Routine Other specified hypothyroidism Expected: 07/27/2024, Expires: 02/04/2025 documented as of this encounter Visit Diagnoses Diagnosis Prediabetes- Primary Other abnormal glucose Other specified hypothyroidism Vitamin D deficiency Unspecified vitamin D deficiency Mixed hyperlipidemia Hypertension, unspecified type documented in this encounter Additional Health Concerns Assessment Noted Time PHQ-9 Depression Total Score: 0 12/14/19 21 9:36 AM CDT documented as of this encounter Care Teams Customer Resolution Specialist Relationship Specialty [place] [address] [place] [address] PCP - General Physician Senior Risk Manager Medical 06/25/23 documented as of this encounter
--- OUTSIDE RECORDS SUMMARY | 2024-04-11 05:34 | XMS_ITS | Encounter Summary ---
Author Organization [facility] Address [address] [place] [address]. 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 Sexual Orientation Straight 06/28/2021 10 :21 AM CDT documented as of this encounter Plan of Treatment Upcoming Encounters Date Type Department Care Team (Late st Contact Info) Description 08/05/2024 10:00 AM CDT Office Visit [facility] Family & Internal Medicine [facility] [id number] [place], [place] [id number] [place] [address] [place] [address] 02/15/2025 10:45 AM 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 Office Visit [facility] [address] [place], [place] [id number] Dale Shahid MD [facility], [address] [place] [address] documented as of this encounter Visit Diagnoses Not on filedocumented in this encounter Additional Health Concerns Assessment Noted Time PHQ-9 Depression Total Score: 0 12/14/19 21 9:36 AM CDT documented as of this encounter Care Teams Wound Nurse Relationship Specialty [place] [address] [place] [address] PCP - General Physician Conservation Policy Analyst Medical 06/25/23 documented as of this encounter
--- OUTSIDE RECORDS SUMMARY | 2024-04-11 05:34 | XMS_ITS | Encounter Summary ---
Author Organization [facility] Address [address] [place] [address]. [place] [address] [place] [address] Care Team Providers Care Licensed Tax Consultant Name Role Phone Amado Mathew Primary Care Provider [phone] Reason for Visit * Auth/Cert (Routine) Specialty Diagnoses / Procedures Referred By Emiliano gomez Referred To Contact Diagnoses Trigger middle finger of right hand right middle finger trigger M65.331 Procedures INCISE FINGER TENDON SHEATH right middle finger open trigger release Marleen Carlos MD [address] [place] [address] Phone: tel: fax: Referral ID Status Reason Start Date Expiration Date Visits Re quested Visits Authorized [id number] 1 1 Encounter Details Date Type Department Care Team (Late st Contact Info) Description 01/17/2024 2:40 PM CDT - 01/17/2024 3:43 PM CDT Surgery [facility] [address] [place], [place] [id number] Marleen Carlos MD [address] [place], [place] [id number] [phone] right middle finger open trigger release Surgery Details Date/Time Status Location OR Service Patient Class Case Class Case Type Trauma Case? 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 Sexual Orientation Straight 06/28/2021 10 :21 AM CDT documented as of this encounter Last Filed Vital Signs Vital Sign Reading Time Taken Comments Blood Pressure 148/95 01/17/2024 1:11 PM CDT Pulse 54 01/17/2024 1:11 PM CDT Temperature 36.5 ??C (97.7 ??F) 01/17/2024 1:11 PM CD T Respiratory Rate 16 01/17/2024 1:11 PM CDT Oxygen Saturation 98% 01/17/2024 1:11 PM CDT Inhaled Oxygen Concentration - - Weight 120.1 kg (264 lb 12.4 oz) 01/17/2024 9:43 AM CDT Height 182.9 cm (6') 01/17/2024 9:43 AM CDT Body Mass Index 35.91 01/17/2024 9:43 AM CDT documented in this encounter Discharge Instructions * Discharge Instructions* Tamiko Mchugh RN - 01/17/2024 12:52 PM CDT Because you had anesthesia, we suggest these things: -Advance diet as tolerated, avoid greasy, fried or spicy foods for today -Take medication with food -Take an over the counter stool softener if needed for constipation while taking pain medication -Have a responsible adult stay with you the rest of today and overnight -No alcohol, driving, making major decision or operating machinery for 24 hours or while taking pain medication If you have chest pain, shortness of breath, excessive bleeding or drainage, if you cannot hold down anything to eat or drink, or if you cannot urinate, please call 911 or go to the nearest emergencyroom. If you have fever, pain not controlled by your medication, signs of infection such as redness or discharge or swelling at the site, or any other questions or concerns, please call your surgeon. * Attachments The following attachments cannot be sent through Care Everywhere. * Trigger Finger Release Discharge Instructions ([place]) * General Anesthesia Discharge Instructions ([place]) * Tramadol, ADULT ([place]) documented in this encounter Medications at Time of Discharge amoxicillin (AMOXIL) 500 MG capsuleIndications:D ENTAL USE ONLY Take 1 capsule (500 mg total) by mouth. Indications: DENTAL USE ONLY 08/31/2023 ASPIRIN EC 81 MG tablet Take 1 tablet (81 mg total) by mouth daily. 10/14/2020 atorvastatin (LIPITOR) 80 MG tabletIndications:Mi xed hyperlipidemia TAKE 1 TABLET BY MOUTH NIGHTLY AT BEDTIME. 90 tablet 3 10/04/2023 Coenzyme Q10 (COQ10) 100 MG Cap Take by mouth daily. Multiple Vitamins-Minerals (CENTRUM SILVER) Tab Take 1 tablet by mouth daily. nitroglycerin 0.[address] 1 tablet (0.4 mg total) under the tongue. 10/14/2020 potassium citrate CR 10 MEQ (1080 MG) tablet Take 1 tablet (10 mEq total) by mouth 3 (three) times daily with meals. vitamin D3, cholecalciferol, 75 MCG (3000 UT) Tab tablet Take 1 tablet (3,000 Units total) by mouth daily. carvedilol (COREG) 3.125 MG tablet TAKE 1 TABLET BY MOUTH TWICE A DAY 180 tablet 3 03/27/2023 12/13/202 4 ezetimibe (ZETIA) 10 MG tablet take 1 tablet by mouth every day 90 tablet 2 06/24/2023 4 levothyroxine (SYNTHROID) 125 MCG tabletIndications:Ot her specified hypothyroidism Take 1 tablet (125 mcg total) by mouth every morning. 90 tablet 1 08/06/2023 4 traMADol (ULTRAM) 50 MG tabletIndications:Ac [place] Pain < 7 Day Supply Take 1 tablet (50 mg total) by mouth every 6 (six) hours as needed for Pain. Indications: Acute Pain < 7 Day Supply 22 tablet 01/17/2024 4 documented as of this encounter H&P Notes * Marleen Carlos MD - 01/17/2024 10:10 AM CDT HISTORY AND PHYSICAL INTERVAL NOTE: I have reviewed Radha Zhang History & Physical which was performed within the past 30 days. After examining Radha Cedeño Leatha, no change has occurred in the patient's condition since the H&P was completed. Informed Consent Discussion: Potential benefits, risks, and side effects of the patient's procedure/surgery; the likelihood of the patient achieving his or her goals; and any potential problems that might occur during recuperation were discussed with the patient/family/personal petroleum products sales representative. Reasonable alternatives to the patient's proposed procedure/surgery including benefits, risks, and side effects related to the alternatives and the risks related to not receiving the proposed care were also discussed with the patient/family/personal petroleum products sales representative. Questions were answered and the patient/family/personal petroleum products sales representative verbalized understanding and desires to proceed. Source Note - Chase Hackett NP - 01/07/2024 8:40 AM CDT Images from the original note were not included. OFFICE VISIT SUBJECTIVE Reason for Visit: Follow Up (Right middle trigger finger, injection did not help) History of Present Illness: Radha Zhang is a 68-year-old right-hand dominant male presents for follow up of right middle trigger finger, now of 3 months duration that was treated with a steroid injeciton on 10/31/2023. Patient states that there was no meaningful long-term improvement in the painful clicking and locking on flexion-extension. He has prediabetes. HgbA1C of 10/28/2023 was 5.9%. He has hypothyroidism. TSH was 0.809 on 08/06/2023. Denies history of injury, history of compression neuropathy. He is accompanied by his Melanie. He describes constant aching sensation in region of right middle finger A1 yakov, that turns into more severe sharp pain upon flexion-extension associated with clicking and occasional locking. He complains of worsening symptoms in the morning. Previous treatments: denies No history of trauma. No other complaints. ROS: Constitutional: Negative for chills and fever. HENT: Negative for sore throat and trouble swallowing. Eyes: Negative for pain and discharge. Respiratory: Negative for chest tightness and shortness of breath. Cardiovascular: Negative for chest pain and palpitations. Gastrointestinal: Negative for abdominal pain and nausea. Endocrine: Negative for cold intolerance and heat intolerance. Genitourinary: Negative for difficulty urinating and dysuria. Skin: Negative for rash and wound. Allergic/Immunologic: Negative for immunocompromised state. Neurological: Negative for light-headedness, dizziness Hematological: Negative for adenopathy. Does not bruise/bleed easily. Psychiatric/Behavioral: Negative for agitation and confusion. History: Past Medical History: Diagnosis Date CAD (coronary artery disease) COVID-19 vaccine administered 2020 [place] Disease of thyroid gland Hypercholesterolemia Influenza vaccine refused 12/13/2020 Kidney stones Past Surgical History: Procedure Laterality Date CARDIAC STENTS 10/14/2020 LITHOTRIPSY REPLACEMENT TOTAL KNEE Left 10/2022 Family History Problem Relation Name Age of Onset Diabetes Mother Heart Disease Father Open Heart Father Diabetes Brother Heart Disease Brother Kidney Disease Brother Other (cardiac stent) Brother No Known Problems Daughter No Known Problems Son No Known Problems Maternal Aunt No Known Problems Maternal Uncle No Known Problems Paternal Aunt No Known Problems Paternal Uncle No Known Problems Maternal Grandmother No Known Problems Maternal Grandfather Heart Attack Paternal Grandmother Heart Attack Paternal Grandfather No Known Problems Other Social History Tobacco Use Smoking status: Never 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 Indications: DENTAL USE ONLY (Patient not taking: Reported on 01/07/2024), Disp: , Rfl: Review of patient's allergies indicates: No Known Allergies OBJECTIVE Vital Signs: Filed Vitals: 01/07/24 0825 BP: 129/84 Pulse: 61 Temp: 98.1 ??F (36.7 ??C) TempSrc: Temporal SpO2: 98% Weight: 123 kg (271 lb 3.2 oz) Height: 1.829 m (6') Body mass index is 36.78 kg/m??. Physical Exam: Physical Exam Constitutional: He is oriented to person, place, and time. He appears well- developed and well-nourished. HENT: Head: Normocephalic. Eyes: EOM are normal. Lymph nodes: No palpable lymphadenopathy involving bilateral upper extremities. Cardiovascular: Intact distal pulses. Pulmonary/Chest: Effort normal. No respiratory distress. Neurological: He is alert and oriented to person, place, and time. Psychiatric: He has a normal mood and affect. Upper Extremity Exam: Right Upper Extremity Hand : Inspection/Palpation: Localized tender nodule in A1 yakov of middle finger associated with painfulclicking upon flexion-extension. Otherwise no tenderness, no swelling, no erythema, no induration, no bruising. All muscle compartments soft, no joint effusion present, no deformities noted, no masses present, no arthritic changes. No crepitus hand/fingers on ROM testing, no deformities of hand or fingers Range of Motion: Active and passive ROM within functional range for age/activity level Strength: all muscles 5/5 Stability: no joint instability on provocative testing Sensation: hand sensory exam intact Recent Imaging: No image results found. ASSESSMENT Radha was seen today for follow up. Diagnoses and all orders for this visit: Trigger middle finger of right hand PLAN Treatment/Counselling: Trigger finger Briefly reviewed the etiology, pathophysiology and natural history of trigger finger tendonitis wasdiscussed with the patient, including explanation of relevant anatomy. Treatment options from doing nothing, splints, therapy, anti-inflammatories by mouth, steroids by mouth or injection, A1 yakov release by open surgery, endoscopic surgery or percutaneous US guided needle release. Options were all discussed with the patient including risks, benefits and indications. Surgical risks including but not limited to, infection, bleeding, injury to surrounding structures,cicatrix, recurrence, joint stiffness, joint pain, chronic swelling, incisional tenderness, chronicnumbness, loss of finger, need of further surgery, possible anesthesia complications were all discussed. Possible need of post-operative rehabilitation was also discussed. Acknowledgment of shared decision making. Patient voices understanding and wishes to proceed with right middle trigger finger release Patient instructed that he will need a person to drive him home and stay overnight after his surgery. All questions answered to the patient's satisfaction. Verbalized understanding of all instructions. Return to the clinic at 1 week post-op Dr. Carlos was consulted and examined this patient. I personally spent a total of 20 minutes on the day of the encounter. This includes [id number] and bvj-tyks-bf-face time I provided on the day of the encounter & excludes time spent performing separately reportable services. I spent an additional 4 minutes performing the procedure. CHASE HACKETT NP 01/07/2024 Cc. KHUSHBU MONET No ref. provider found Cosigned by Marleen Carlos MD at 01/07/2024 10:53 AM CDT documented in this encounter Nursing Notes * Sahara Esteves RN - 01/17/2024 12:05 PM CDT 1205: called and updated patient's , Melanie, of procedure closing. documented in this encounter OR Notes * Op Note - Marleen Carlos MD - 01/17/2024 12:12 PM CDT SURGEON: MARLEEN CARLOS MD LLAMA FARMER: Circulating Nurse 1: Sahara Esteves RN Circulating Nurse 2: Johanna Collazo RN Scrub Person 1: Otilia Ann, [facility] PREOPERATIVE DIAGNOSIS: right middle finger trigger M65.331 POSTOPERATIVE DIAGNOSIS: same as pre op PROCEDURE PERFORMED: Procedure(s): Right - right middle finger open trigger release - Wound Class: Clean ANESTHESIA: General ESTIMATED BLOOD LOSS: minimal IMPLANTS: none TOURNIQUET TIME: Total Tourniquet Time Documented: Upper Arm (Right) - 5 minutes Total: Upper Arm (Right) - 5 minutes INDICATIONS FOR PROCEDURE: Radha Zhang is a 68-year-old male with a right middle trigger finger. After discussion of risks, benefits, and convalescence period, he has elected to proceed with surgery. DESCRIPTION OF PROCEDURE: The patient was seen in the preoperative holding area prior to the operation. An extensive discussion was held regarding the details of the operation and postoperative instructions. The patient was given the opportunity to ask all pertinent and relevant questions and gave informed consent to proceed, prior to the administration of any anesthetic agent. The operative site was marked. The patient was taken to the operating suite. Once placed on the operating table in the supine position, General anesthesia was induced uneventfully. The upper extremity was subsequently prepped and draped in usual sterile fashion using aseptic precautions. An incision was marked out and made about the palmar digital crease at the base of the finger taking care to just divide through the dermis. Littler scissors where then used to bluntly spread the soft tissues. The digital nerve was identified in its usual anatomic position These nerves where kept under direct visualization or protected by cast and retractor throughout the entire procedure. Kasdan retractors were then used to very gently retract the digital nerves and the A1 yakov was divided and flexor tendon sheath entered. Flexor tendon release was performed uneventfully and proliferative flexor tenosynovium was excised. Flexor tendon was then able to glide freely. Both digital nerves where inspected and noted to be intact, uninjured and normal in appearance. The wound was copiously irrigated and then meticulously closed with interrupted vertical mattress sutures taking care to observe the needle throughout the entire placement of the sutures avoid the digital nerves. Local field block was performed using 0.5% Marcaine plain, with the needle being place just barely below the dermis. Similarly 4 mg Dexamethasone was injected. Sterile bulky dressing was applied. The tourniquet was deflated and the thumb pinked up nicely. Thepatient tolerated the procedure well and patient was transferred via stretcher to the Recovery Room. Patient was discharged with my usual postoperative instruction sheet and instructed to return to my office for follow up. Patient is discharged with prescriptions for pain medication and prophylactic antibiotics. Tourniquet time and operating room time utilized was minimized during this procedure as the director surgical facilitated performance of the procedure throughout the entire case. * Brief Op Note - Marleen Carlos MD - 01/17/2024 12:12 PM CDT [facility] Brief Op HSHSright middle finger open trigger release Procedure Note Radha Cedeño Leatha 01/17/2024 1440 Procedure(s) (LRB): right middle finger open trigger release (Right) Surgeon(s): Marleen Carlos MD Associate Programmer Analyst: None Anesthesia: General Pre-Op Diagnosis: right middle finger trigger M65.331 Post-Op Diagnosis: Same Findings: see op note Estimated Blood Loss: Minimal Specimens: None MARLEEN CARLOS MD Date: 01/17/2024 Time: 12:12 PM * OR PreOp - TRISTEN Galdamez - 01/10/2024 2:35 PM CDT Chart reviewed. Per phone interview, patient denies severe SOB/CP with 2 FOS or recent changes in activity tolerance in past 6 months. Patient sees welder gun Dr. Shahid and previous cardiac testing copied. Additional EKG also available in Care Everywhere. EKG 09/25/22 Normal sinus rhythm Low voltage QRS Borderline ECG No previous ECGs available Rate 61 Echo 11/17/20 LV size is normal. LV systolic function is normal. LVEF 60-65%. Mild concentric LVH. LV diastolic function is no reliably assessed RV size is mildly enlarged. RV systolic function is normal. Unable to reliably quantitate pulmonary systolic pressure. Mild AR. * OR PreOp - Brandy Alexander RN - 01/10/2024 12:04 PM CDT Can you climb 2 flights of stairs without severe SOB or chest pain? Yes, walks 2 miles per day Are you physically able to do the same things today as 6 months ago? Yes Have you had any heart testing? None recently Avg BP? 120/80's Do you have a welder gun? Dr. 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, [address] [place] [address] documented as of this encounter Procedures Procedure Name Priority Date/Time Associated Diagnosis Comments INCISE FINGER TENDON SHEATH 01/17/2024 11:39 AM CDT Trigger middle finger of right hand Case Notes SCHED BY RICKY IN OFFICE 01/08/2024 LCS PHONE ASSESS documented in this encounter Visit Diagnoses Diagnosis Trigger middle finger of right hand- Primary Trigger finger (acquired) Trigger middle finger of right hand Trigger finger (acquired) Trigger middle finger of right hand Trigger finger (acquired) documented in this encounter Admitting Diagnoses Diagnosis Trigger middle finger of right hand Trigger finger (acquired) documented in this encounter Administered Medications Inactive Administered Medications - up to 3 most recent administrations Medication Order MAR Action Action Date Dose Rate Site acetaminophen (TYLENOL) tablet 975 mg 975 mg, Oral, Once, 1 dose, On Sat01/17/24 at 0930, Maximum dose of acetaminophen is 4000 mg from all sources in 24 hours., Pre-OpIndications:Trigger middle finger of right hand Given 01/17/2024 10:23 AM CDT 975 mg BUpivacaine 0.5 % (MARCAINE) 0.5 % injection As needed, Starting on Sat01/17/24 at 1207, Until Sat01/17/24 at 1216, Intra-Op Given 01/17/2024 12:07 PM CDT 9 mLs Operative Site dexamethasone (DECADRON) injection As needed, Starting on Sat01/17/24 at 1207, Until Sat01/17/24 at 1216, Intra-Op Given 01/17/2024 12:07 PM CDT 1 mL Operative Site famotidine (PEPCID) tablet 20 mg 20 mg, Oral, Once, 1 dose, On Sat01/17/24 at 0930, On admission, Pre-Op Given 01/17/2024 10:23 AM CDT 20 mg lactated ringers infusion at 10 mL/hr, Intravenous, Continuous, Starting on Sat01/17/24 at 0930, Until Sat01/17/24 at 1515, Infuse at TKO rate, Pre-Op New Bag 01/17/2024 11:39 AM CDT documented in this encounter Active and Recently Administered Medications Times are shown in CDT. Scheduled Medication Order 01/15/2024 01/16/2024 01/17/2024 acetaminophen (TYLENOL) tablet 975 mg (COMPLETED) 975 mg, Oral, Once, 1 dose, On Sat01/17/24 at 0930, Maximum dose of acetaminophen is 4000 mg from all sources in 24 hours., Pre-Op 1023 (Given - Provid er: Tamiko Mchugh RN) ceFAZolin (ANCEF) 3 g in sodium chloride 0.9 % 100 mL IVPB (COMPLETED) 3 g, Intravenous, at 400 mL/hr, licensed staff mft, 1 dose, On Sat01/17/24 at 0930, Give 3 gram dose for patients greater than or equal to 120 kg. Give within 60 minutes of surgical incision., Pre-Op 1147 (New Bag - Prov ider: Jim Townsend CRNA)1202 (Infusion Stop Time - Provider: Jim Townsend CRNA) famotidine (PEPCID) tablet 20 mg (COMPLETED) 20 mg, Oral, Once, 1 dose, On Sat01/17/24 at 0930, On admission, Pre-Op 1023 (Given - Provid er: Tamiko Mchugh RN) Continuous Medication Order 01/15/2024 01/16/2024 01/17/2024 lactated ringers infusion at 10 mL/hr, Intravenous, Continuous, Starting on Sat01/17/24 at 0930, Until Sat01/17/24 at 1515, Infuse at TKO rate, Pre-Op 1139 (New Bag - Prov ider: Jim Townsend CRNA)1220 (Anesthesia Volume Adjustment - Provider: Jim Townsend CRNA)1255 (Infusion Stop Time - Provider: Joyce Gordillo RN) PRN Medication Order 01/15/2024 01/16/2024 01/17/2024 acetaminophen (TYLENOL) tablet 650 mg 650 mg, Oral, Every 4 hours PRN, Mild pain (Scale 1 - 3), Fever, Starting on Sat01/17/24 at 1209, Until Sat01/17/24 at 1515, Maximum dose of acetaminophen is 4000 mg from all sources in 24 hours., Post-Op BUpivacaine 0.5 % (MARCAINE) 0.5 % injection (CANCELED) As needed, Starting on Sat01/17/24 at 1207, Until Sat01/17/24 at 1216, Intra-Op 1207 (Given - Provid er: Marleen Carlos MD - Comment: mixed with 1mL of decadron.) dexamethasone (DECADRON) injection (CANCELED) As needed, Starting on Sat01/17/24 at 1207, Until Sat01/17/24 at 1216, Intra-Op 1207 (Given - Provid er: Marleen Carlos MD - Comment: mixed with 9mL of marcaine.) HYDROcodone-acetaminophen (NORCO) 5-325 MG tablet 1 tablet 1 tablet, Oral, Every 4 hours PRN, Moderate pain (Scale 4 - 7), Starting on Sat01/17/24 at 1209, Until Sat01/17/24 at 1515, Maximum dose of acetaminophen is 4000 mg from all sources in 24 hours., Post-Op ondansetron (ZOFRAN) injection 4 mg 4 mg, Intravenous, Every 8 hours PRN, Nausea, Starting on Sat01/17/24 at 1209, Until Sat01/17/24 at 1515, Post-Op oxyCODONE-acetaminophen (PERCOCET) 5-325 MG tablet 1 tablet 1 tablet, Oral, Every 4 hours PRN, Severe pain (Scale 8 - 10), Starting on Sat01/17/24 at 1209, Until Sat01/17/24 at 1515, Maximum dose of acetaminophen is 4000 mg from all sources in 24 hours., Post-Op documented in this encounter Additional Health Concerns Assessment Noted Time PHQ-9 Depression Total Score: 0 12/14/19 21 9:36 AM CDT documented as of this encounter Care Teams Licensed Tax Consultant Relationship Specialty [place] [address] [place] [address] PCP - General Physician Associate Programmer Analyst Medical 06/25/23 documented as of this encounter
--- OUTSIDE RECORDS SUMMARY | 2024-04-11 05:34 | XMS_ITS | Encounter Summary ---
Author Organization [facility] Address [address] [place] [address]. [place] [address] [place] [address] Care Team Providers Care Furniture Assembly Supervisor Name Role Phone Amado Mathew Primary Care Provider [phone] Reason for Visit * Reason Onset Date Comments Schedule Surgery 12/26/2023 Encounter Details Date Type Department Care Team (Late st Contact Info) Description 12/26/2023 Telephone [facility] Orthopedic & Sports Medicine - [place] [address] [place] [address] Jose Hackett NP [address] [facility] 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 [id number] documented in this encounter Plan of Treatment Upcoming Encounters Date Type Department Care Team (Late st Contact Info) Description 08/05/2024 10:00 AM CDT Office Visit [facility] Family & Internal Medicine [facility] [address] [place] [address] [place] [address] [place] [address] 02/15/2025 10:45 AM ANIMAL SURGEON Office Visit [facility] [address] [place] [address] Dale Shahid MD [facility], [address] [place], [place] [id number] documented as of this encounter Visit Diagnoses Not on filedocumented in this encounter Additional Health Concerns Assessment Noted Time PHQ-9 Depression Total Score: 0 12/14/19 21 9:36 AM CDT documented as of this encounter Care Teams Furniture Assembly Supervisor Relationship Specialty [place] [address] [place] [address] PCP - General Physician Director [employer] 06/25/23 documented as of this encounter
--- OUTSIDE RECORDS SUMMARY | 2024-04-11 05:34 | XMS_ITS | Encounter Summary ---
Author Organization [facility] Address [address] [place] [address]. [place] [address] [place] [address] Care Team Providers Care Daily Sales Audit Clerk Name Role Phone Amado Mathew Primary Care Provider Reason for Referral * Surgical (Routine) - Authorized Specialty Diagnoses / Procedures Referred By Emiliano gomez Referred To Contact Diagnoses Trigger middle finger of right hand Procedures Case request operating room: right middle finger open trigger release. 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 Sexual Orientation Straight 06/28/2021 10 :21 AM CDT documented as of this encounter Plan of Treatment Upcoming Encounters Date Type Department Care Team (Late st Contact Info) Description 08/05/2024 10:00 AM CDT Office Visit [facility] Family & Internal Medicine [facility] [id number] [place] [phone] [place] [address] [place], [place] [id number] 02/15/2025 10:45 AM CRAFT RECRUITER Office Visit [facility] [address] [place] [address] Dale Shahid MD [facility], [address] [place] [address] Scheduled Orders Name Type Priority Associated Diagnoses Orde r Schedule Case request operating room: right middle finger open trigger release. Case Request Routine Trigger middle finger of right hand Once for 1 Occurrences starting 01/08/2024 until 01/08/2024 documented as of this encounter Visit Diagnoses Diagnosis Trigger middle finger of right hand- Primary Trigger finger (acquired) documented in this encounter Additional Health Concerns Assessment Noted Time PHQ-9 Depression Total Score: 0 12/14/19 21 9:36 AM CDT documented as of this encounter Care Teams Daily Sales Audit Clerk Relationship Specialty [place] [address] [place] [address] PCP - General Physician Churn Operator [facility] 06/25/23 documented as of this encounter
--- OUTSIDE RECORDS SUMMARY | 2024-04-11 05:34 | XMS_ITS | Clinical Summary ---
Author Organization [facility] Address [address] [place] [address]. [place] [address] [place] [address] Care Team Providers Care Video Network Engineer Name Role Phone Amado Mathew Primary Care Provider [phone] Allergies No known active allergies Medications potassium citrate CR 10 MEQ (1080 MG) tablet Take 1 tablet (10 mEq total) by mouth 3 (three) times daily with meals. Active vitamin D3, cholecalciferol, 75 MCG (3000 UT) Tab tablet Take 1 tablet (3,000 Units total) by mouth daily. Active Multiple Vitamins-Minerals (CENTRUM SILVER) Tab Take 1 tablet by mouth daily. Active ASPIRIN EC 81 MG tablet Take 1 tablet (81 mg total) by mouth daily. Active nitroglycerin 0.[address] 1 tablet (0.4 mg total) under the tongue. Active Coenzyme Q10 (COQ10) 100 MG Cap Take by mouth daily. Active atorvastatin (LIPITOR) 80 MG tabletIndications :Mixed hyperlipidemia TAKE 1 TABLET BY MOUTH NIGHTLY AT BEDTIME. 90 tablet 3 024 Active amoxicillin (AMOXIL) 500 MG capsuleIndication s:DENTAL USE ONLY Take 1 capsule (500 mg total) by mouth. Indications: DENTAL USE ONLY 024 Active levothyroxine (SYNTHROID) 125 MCG tabletIndications :Other specified hypothyroidism Take 1 tablet (125 mcg total) by mouth every morning. 90 tablet 1 024 Active carvedilol (COREG) 3.125 MG tablet TAKE 1 TABLET BY MOUTH TWICE A DAY 180 tablet 3 Active ezetimibe (ZETIA) 10 MG tablet TAKE 1 TABLET BY MOUTH EVERY DAY 90 tablet 3 Active benzonatate (TESSALON) 100 MG capsule Take 1 capsule (100 mg total) by mouth 2 (two) times daily as needed. Active predniSONE (DELTASONE) 20 MG tablet Active carvedilol (COREG) 3.125 MG tablet TAKE 1 TABLET BY MOUTH TWICE A DAY 180 tablet 3 023 2023 Discontinued ezetimibe (ZETIA) 10 MG tablet take 1 tablet by mouth every day 90 tablet 2 024 2023 Discontinued nirmatrelvir & ritonavir 300/100 (PAXLOVID) 20 x 150 MG & 10 x 100MG tablet packIndications:C OVID Take TWO nirmatrelvir 150 mg tablets along with ONE ritonavir 100 mg tablet, with all three tablets taken together, twice daily for 5 days. May take with or without food. Swallow tablets whole. Do not chew, break or crush. 30 each 024 2023 Active Problems Problem Noted Date Diagnosed Date Trigger middle finger of right hand 01/08/2024 History of coronary artery stent placement 08/05 Class 2 obesity due to exces s calories without serious comorbidity with body mass index (BMI) of 37.0 to 37.9 in adult 10/09/2022 Mild aortic insufficiency 02/07/2022 Prediabetes 02/07/2022 Primary osteoarthritis of left knee 11/15/2021 Mixed hyperlipidemia 08/22/2020 Other specified hypothyroidism 08/22/2020 Sleep apnea in adult 06/22/2018 CAD (coronary artery disease) Resolved Problems Problem Noted Date Diagnosed Date Resolved Date Acute pain of left shoulder 12/13/2020 02/20/2022 Encounters Date Type Department Care Team Description 04/06/2024 7:20 AM MEDICAL CLAIMS PROCESSOR Office Visit [facility] Family & Internal Medicine [address] [address] Mahanz Dey, KHUSHBU BELLA (S/s x 4 days, seen in urgent care, symptoms worsening ) 04/06/2024 Travel 03/06/2024 Telephone [facility] [address] [place] [address] Dinorah Velazquez FNP Results 03/05/2024 9:37 AM MEDICAL CLAIMS PROCESSOR - 03/05/2024 11:59 PM MEDICAL CLAIMS PROCESSOR Hospital Encounter [facility] Non Invasive Cardiology [facility] [place] [address] Dale Shahid MD Discharge Disposition: Home or Self Care (Routine Discharge) 03/05/2024 Travel 02/11/2024 Orders Only [facility] [address] [place] [address] Dale Shahid MD 02/10/2024 1:45 PM CDT Office Visit [facility] [place] [address] Dale Shahid MD Coronary Artery Disease (annual) 02/10/2024 Travel 02/05/2024 9:20 AM CDT Office Visit [facility] Family & Internal Medicine - [place] [address] [place] [address] Amado Mathew PA Follow Up (6 month follow up); Hyperlipidemia; Hypothyroidism 02/05/2024 Travel 01/27/2024 7:50 AM CDT - 01/27/2024 11:59 PM CDT Hospital Encounter [facility] Laboratory [address] [place] [address] Amado Mathew, PA Discharge Disposition: Home or Self Care (Routine Discharge) 01/27/2024 MyChart Message Enc [facility], [place] [address] [place] [address] Dinorah Velazquez FNP Lipid panel resuls 01/27/2024 Telephone [facility], [address] [address] Dinorah Velazquez FNP Lab Order 01/27/2024 Travel 01/23/2024 10:40 AM CDT Office Visit [facility] Orthopedic & Sports Medicine - [address] [address] Jose Hackett NP Postop Followup (Right middle trigger finger release DOS: 01/17/24) 01/23/2024 Travel 01/17/2024 2:40 PM CDT - 01/17/2024 3:43 PM CDT [place] [address] Bin Guzman MD right middle finger open trigger release 01/17/2024 11:39 AM CDT Anesthesia [place] [address] Jermaine Heredia MD Jackson, Samantha Rae, FNP 01/17/2024 9:07 AM CDT - 01/17/2024 1:15 PM CDT Hospital Encounter [facility] [address] Bin Guzman MD Discharge Disposition: Home or Self Care (Routine Discharge) 01/17/2024 Travel from Last 3 Months Immunizations Name Administration Dates Next Due Fluzone High Dose - >Age 65 (Prefilled Syringe) 12/13/2020(Deferred: Patient Refused) Influenza Adult (Generic) 05/17/2022(Def erred: Patient/family declined) PFIZER COVID-19 (ORIGINAL FORMULATION, PURPLE CAP) mRNA, LNP-S, PF, 30 MCG/0.3 ML DOSE 03/24/2021,06/30/2020,06/09/2020 Tdap (Boostrix) 01/06/2022 Family History Medical History Relation Comments Diabetes Brother Heart Disease Brother Kidney Disease Brother cardiac stent Brother No Known Problems Daughter Heart Disease Father Open Heart Father No Known Problems Maternal Aunt No Known Problems Maternal Grandfather No Known Problems Maternal Grandmother No Known Problems Maternal Uncle Diabetes Mother No Known Problems Other No Known Problems Paternal Aunt Heart Attack Paternal Grandfather Heart Attack Paternal Grandmother No Known Problems Paternal Uncle No Known Problems Son Relation Status Comments Brother Daughter Father Maternal Aunt Maternal Grandfather Maternal Grandmother Maternal Uncle Mother Other Paternal Aunt Paternal Grandfather Paternal Grandmother Paternal Uncle Son Social History Tobacco Use Types Packs/Day Years Used Date Smoking Tobacco: Never Passive Smoke Exposure: Past Smokeless Tobacco: Never Tobacco Cessation:Counseling Given: No 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 Alcohol Use Standard Drinks/Week Comments Not Currently [...] CDT Gender Identity Male 06/12/2021 5:16 AM MEDICAL CLAIMS PROCESSOR Sexual Orientation Straight 06/28/2021 10 :21 AM CDT Last Filed Vital Signs Vital Sign Reading Time Taken Comments Blood Pressure 137/86 04/06/2024 7:10 AM MEDICAL CLAIMS PROCESSOR Pulse 70 04/06/2024 7:10 AM MEDICAL CLAIMS PROCESSOR Temperature 36.3 ??C (97.4 ??F) 04/06/2024 7:10 AM CS T Respiratory Rate 18 04/06/2024 7:10 AM MEDICAL CLAIMS PROCESSOR Oxygen Saturation 97% 04/06/2024 7:10 AM MEDICAL CLAIMS PROCESSOR Inhaled Oxygen Concentration - - Weight 123.7 kg (272 lb 9.6 oz) 04/06/2024 7:10 AM MEDICAL CLAIMS PROCESSOR Height 182.9 cm (6') 04/06/2024 7:10 AM MEDICAL CLAIMS PROCESSOR Body Mass Index 36.97 04/06/2024 7:10 AM MEDICAL CLAIMS PROCESSOR Plan of Treatment Upcoming Encounters Date Type Department Care Team (Late st Contact Info) Description 08/05/2024 10:00 AM CDT Office Visit [facility] Family & Internal Medicine - [place] [address] [place] [address] [place] [address] [place] [address] 02/15/2025 10:45 AM MEDICAL CLAIMS PROCESSOR Office Visit [facility] [address] [place] [address] Dale Shahid MD [facility] [address] [place] [address] Health Maintenance Due Date Last Done Comments RSV Immunization or 60+ Years (1 - Risk 60-74 years 1-dose series) 08/05/2024 Postponed from 04/2014 (Patient Refused) Annual Medicare Wellness Visit 08/06/2024 08/06/2023 Colorectal Cancer Screening Colonoscopy (10 Years) 11/29/2024 11/29/2014 COVID-19 Vaccine (2023-2 5 season) 2025 03/24/2021, 06/30/2020, 06/09/2020 Postponed from 12/15/2023 (Patient Refused) Influenza Adult (#1) 2025 Postpon ed from 01/14/2024 (Patient Refused) Pneumococcal Vaccine: 65+ Years (1 of 2 - PCV) 07/13/2026 Postponed from 04/1960 (Patient Refused) Zoster Vaccines (1 of 2) 01/27/2029 Pos tponed from 2004 (Patient Refused) DTaP, Tdap and Td Vaccines ( 2 - Td or Tdap) 01/07/2032 01/06/2022 Hepatitis C 08/08/2052 Postponed from 1972 (Patient Refused) Meningococcal Vaccine Aged Out No rohini brisa eligible based on patient's age to complete this topic RSV Immunizations Under 20 Months Aged Out No longer eligible b ased on patient's age to complete this topic Procedures Procedure Name Priority Date/Time Associated Diagnosis Comments CORONAVIRUS (COVID-19) INFLUENZA A & B ANTIGEN IA PANEL Routine 04/06/2024 Suspected COVID-19 virus infection USE ECHOCARDIOGRAM Routine 03/05/2024 10:26 AM MEDICAL CLAIMS PROCESSOR Mild aortic regurgitation LIPID PANEL Routine 01/27/2024 8:03 AM CDT Dyslipidemia THYROID STIM HORMONE TSH Routine 01/27/2024 8:03 AM CDT Other specified hypothyroidism VITAMIN D, 25 OH Routine 01/27/2024 8:03 AM CDT Vitamin D deficiency CBC W/DIFF AUTOMATED Routine 01/27/2024 8:03 AM CDT Hypertension, unspecified type COMPREHENSIVE METABOLIC PANEL Routine 01/27/2024 8:03 AM CDT Prediabetes THYROXINE, FREE (FT4) Routine 01/27/2024 8:03 AM CDT Other specified hypothyroidism HEMOGLOBIN, GLYCOSYLATED Routine 01/27/2024 8:03 AM CDT Prediabetes PROSTATE SPECIFIC ANTIGEN,SCREENING Routine 01/27/2024 8:03 AM CDT Prostate cancer screening INCISE FINGER TENDON SHEATH 01/17/2024 11:39 AM CDT Trigger middle finger of right hand Case Notes SCHED BY RICKY IN OFFICE 01/08/2024 [facility] PHONE ASSESS COLONOSCOPY GENERIC (SCAN ORDER) 11/29/2014 from Last 3 Months or Most Recently Relevant to Health Maintenance Results * (ABNORMAL) CORONAVIRUS (COVID-19) INFLUENZA A & B ANTIGEN IA PANEL (04/06/2024) CORONAVIRUS ANTIGEN IA POSITIVE(A) NEGATIVE [id number] A NEGATIVE NEGATIVE MG-[address], [place] INFLUENZA B NEGATIVE NEGATIVE MG-[address], [place] Internal Control: VALID VALID MG-[id number], [place] NASAL STRUCTURE / Unknown 04/06/2024 us Mahnaz [facility] - GENERAL ORDER AUGUSTIN Final Result -[id number] [address] [place] [address], * USE ECHOCARDIOGRAM (03/05/2024 10:26 AM MEDICAL CLAIMS PROCESSOR) Anatomical Region Laterality Modality Cardiac Echocardiogram 03/05/2024 9:57 AM MEDICAL CLAIMS PROCESSOR Narrative 03/06/2024 11:37 AM MEDICAL CLAIMS PROCESSOR ?Echocardiography Report Pat.Name: ??ILIANA ZHANG ? Pat.ID: ?[id number] ? St.Date: ?? 03/05/2024 ? Refer.MD: ??[id number] OCHSELINA GUILLEN O ? EWDPROV ?EWDPROV Exam Time: 9:57:00 AM ? Study Type:ECHO WITH CARDIAC DOPPLER COMP Height: ?72 in ? Weight: ?270 lb ? BSA: ? 2.42 m2 ?Age: ??1955,68Y ? Sex: ? M ? BP: ?149/80 ? HR: ?61 bpm ?Sonogrphr: Young. Mitra RCS ? Pat. Stat.:Outpatient ? Reason for Study:Aortic insufficiency Procedures: 2D, M-mode, Doppler, Color Flow, The study quality is technically adequate. Race: ?W ? ++++++++++++++++++++++++++++++++++++ SUMMARY: ++++++++++++++++++++++++++++++++++++ The left ventricular size is normal. The left ventricular systolic function is normal. Estimated left ventricular ejection fraction is 55-60%. Mild to moderate concentric left ventricular hypertrophy. Left ventricular diastolic function is abnormal (grade 1 - impaired relaxation). The right ventricular size is normal. Right ventricular systolic function is normal. Mild aortic regurgitation. Mild aortic valve sclerosis. Mild mitral regurgitation. ++++++++++++++++++++++++++++++++++++ FINDINGS: ++++++++++++++++++++++++++++++++++++ LV: ? The left ventricular size is normal. The left ventricular ?systolic function is normal. Estimated left ventricular ?ejection fraction is 55-60%. Mild to moderate concentric ?left ventricular hypertrophy. Left ventricular diastolic ?function is abnormal (grade 1 - impaired relaxation). WM: ? Wall motion appears normal in all segments. RV: ? The right ventricular size is normal. Right ventricular ?systolic function is normal. IVS: ?No evidence of ventricular septal defect. LA: ? The left atrial size is normal. The left atrial volume is ?normal ( less than 34 ml/M2). RA: ? Right atrial size is normal. IAS: ?Atrial septum appears intact. JOSE: ? No evidence of pericardial effusion. AO: ? Aorta is normal. PA: ? Estimated right atrial pressure of 3 mmHg. Unable to ?reliably quantitate pulmonary systolic pressure. SVn: ?Systemic veins are normal. AV: ? The aortic valve is trileaflet. No evidence of aortic valve ?stenosis. Mild aortic regurgitation. Mild aortic valve ?sclerosis. MV: ? Mild mitral regurgitation. No evidence of mitral stenosis. PV: ? Trace pulmonic regurgitation. No evidence of pulmonic valve ?stenosis. Pulmonic valve not well visualized. TV: ? A trace of tricuspid regurgitation. No evidence of tricuspid ?valve stenosis. ++++++++++++++++++++++++++++++++++++ MEASUREMENTS: ++++++++++++++++++++++++++++++++++++ ?DOPPLER LVOT ?? LVOTpkPG ? 4 mmHg ?LVOTmnPG ? 2 mmHg LVOTpkVel ? 99.3 cm/s (70-110)+ LVOT SV ?104 ml ?? LVOT TVI ?23 cm ? Pulmonary Veins ?? PVnpkVeld ? 35.8 cm/s ?PVnVs/Vd ? 1.5 ? PVnpkVels ? 54.5 cm/s ? AV Forward Flow AV TVI ?29.3 cm ?AV pkPG ?6 mmHg AV pkVel ? 127 cm/s (100-170)+ Area (TVI) ?3.55 cm2 ??(3-5) AV mnPG ?4 mmHg ?Area (Lobo) ?3.53 cm2 ??(3- 5) MV Forward Flow MV DeTm ?250 msec ? MV pkE ?53.5 cm/s (60-130)* MV E/A ? 0.9 ? MV pkA ?62.1 cm/s PV Forward Flow PV pkVel ?89.6 cm/s (60-90) ??PV AC ? 90 msec PV pkPG ?3 mmHg ? TV Forward Flow TV pkE ?47.4 cm/s ? Lat E' ?? Lat e ? 7.18 cm/s ? Lat E/E' ?? Lat E/e ?7.5 ? Med E' ?? Med e ? 7.72 cm/s ? Med E/E' ?? Med E/e ?6.9 ? Aortic Valve ?? Aortic Valve Ar ??1.47 ?Aortic Valve Ve ??0.78 ? PV Antegrade Flow Acceleration Sl ?? 603 cm/s2 ? Right Atrium ?? Taylor's Disk ? 20 ? Right Ventricle ?? Right Ventricle ?11 cm/s ?2D Left Ventricle ?? LVIDd ?4.6 cm ?? (3.6-5.2) LV ESV ?40.3 ml ?? LVIDs ?3.1 cm ?? (2.3-3.9) LV ESV ?39.2 ml ?? LngAxd ?8.55 cm ?LVESV BP ?41 ml ?? LngAxd ?7.96 cm ?LV EF ? 60.5 % ?? LV EDV ? 102 ml ?LV EF ? 52.7 % ?? LV EDV ?82.9 ml ?LV EF BP ?56.9 % ?? LVEDV BP ?95.1 ml ?LV SV ? 61.7 ml ?? LngAxs ?6.75 cm ?LV SV ? 43.7 ml ?? LngAxs ?7.22 cm ?LV SV BP ?54.1 ml ?? LVPW ?? LVPWd ?1.3 cm ? Ventricular Septum ?? IVSd ? 1.3 cm ? Left Atrium ?? LA a-p ? 3.7 cm ?? (2.8-3.4)* LA VOLBP ?66.9 ml ?? Aorta ?? Ao Rtd ? 4 cm ? Ao Asc ? 3.9 cm ?? (2.1-3.4)* LVOT ?? LVOT ? 2.4 cm ?LVOTArea ?4.52 cm2 Ratios ?? IVS LA Biplane LAVol I BP ?27.6 ml/m2 ? RA Single Plane Right Atrium MO ??9.68 mm ? Right Atrium Sy ??34.3 ml ?? Right Atrium Sy ??47.3 mm ? Right Atrium Sy ??14.2 ml/m2 Right Atrium Sy ?14 cm2 ? Right Ventricle ?? Right Ventricle ?31 mm ? Right Ventricle ?21 mm ?? Major Miranda ?76 mm ?MMODE TA ?? Tricuspid Annul ??24.3 mm ? <Electronic Signature> 03/06/2024 11:37 AM Dale Shahid M.D. Procedure Note Dale Shahid MD - 03/06/2024 Echocardiography Report Pat.Name: ILIANA ZHANG WALTER Pat.ID: [id number] St.Date: 03/05/2024 Refer.: [id number] JUAN DIEGO Shi EWDPROV EWDPROV Exam Time: 9:57:00 AM Study Type:ECHO WITH CARDIAC DOPPLER COMP Height: 72 in Weight: 270 lb BSA: 2.42 m2 Age: 7 1955,68Y Sex: M BP: 149/80 HR: 61 bpm Sonogrphr: James. Manriquez [facility] Pat. Stat.:Outpatient Reason for Study:Aortic insufficiency Procedures: 2D, M-mode, Doppler, Color Flow, The study quality is technically adequate. Race: W ++++++++++++++++++++++++++++++++++++ SUMMARY: ++++++++++++++++++++++++++++++++++++ The left ventricular size is normal. The left ventricular systolic function is normal. Estimated left ventricular ejection fraction is 55-60%. Mild to moderate concentric left ventricular hypertrophy. Left ventricular diastolic function is abnormal (grade 1 - impaired relaxation). The right ventricular size is normal. Right ventricular systolic function is normal. Mild aortic regurgitation. Mild aortic valve sclerosis. Mild mitral regurgitation. ++++++++++++++++++++++++++++++++++++ FINDINGS: ++++++++++++++++++++++++++++++++++++ LV: The left ventricular size is normal. The left ventricular systolic function is normal. Estimated left ventricular ejection fraction is 55-60%. Mild to moderate concentric left ventricular hypertrophy. Left ventricular diastolic function is abnormal (grade 1 - impaired relaxation). WM: Wall motion appears normal in all segments. RV: The right ventricular size is normal. Right ventricular systolic function is normal. IVS: No evidence of ventricular septal defect. LA: The left atrial size is normal. The left atrial volume is normal ( less than 34 ml/M2). RA: Right atrial size is normal. IAS: Atrial septum appears intact. JOSE: No evidence of pericardial effusion. AO: Aorta is normal. PA: Estimated right atrial pressure of 3 mmHg. Unable to reliably quantitate pulmonary systolic pressure. SVn: Systemic veins are normal. AV: The aortic valve is trileaflet. No evidence of aortic valve stenosis. Mild aortic regurgitation. Mild aortic valve sclerosis. MV: Mild mitral regurgitation. No evidence of mitral stenosis. PV: Trace pulmonic regurgitation. No evidence of pulmonic valve stenosis. Pulmonic valve not well visualized. TV: A trace of tricuspid regurgitation. No evidence of tricuspid valve stenosis. ++++++++++++++++++++++++++++++++++++ MEASUREMENTS: ++++++++++++++++++++++++++++++++++++ DOPPLER LVOT LVOTpkPG 4 mmHg LVOTmnPG 2 mmHg LVOTpkVel 99.3 cm/s (70-110)+ LVOT SV 104 ml LVOT TVI 23 cm Pulmonary Veins PVnpkVeld 35.8 cm/s PVnVs/Vd 1.5 PVnpkVels 54.5 cm/s AV Forward Flow AV TVI 29.3 cm AV pkPG 6 mmHg AV pkVel 127 cm/s (100-170)+ Area (TVI) 3.55 cm2 (3-5) AV mnPG 4 mmHg Area (Lobo) 3.53 cm2 (3-5) MV Forward Flow MV DeTm 250 msec MV pkE 53.5 cm/s (60-130)* MV E/A 0.9 MV pkA 62.1 cm/s PV Forward Flow PV pkVel 89.6 cm/s (60-90) PV AC 90 msec PV pkPG 3 mmHg TV Forward Flow TV pkE 47.4 cm/s Lat E' Lat e 7.18 cm/s Lat E/E' Lat E/e 7.5 Med E' Med e 7.72 cm/s Med E/E' Med E/e 6.9 Aortic Valve Aortic Valve Ar 1.47 Aortic Valve Ve 0.78 PV Antegrade Flow Acceleration Sl 603 cm/s2 Right Atrium Taylor's Disk 20 Right Ventricle Right Ventricle 11 cm/s 2D Left Ventricle LVIDd 4.6 cm (3.6-5.2) LV ESV 40.3 ml LVIDs 3.1 cm (2.3-3.9) LV ESV 39.2 ml LngAxd 8.55 cm LVESV BP 41 ml LngAxd 7.96 cm LV EF 60.5 % LV EDV 102 ml LV EF 52.7 % LV EDV 82.9 ml LV EF BP 56.9 % LVEDV BP 95.1 ml LV SV 61.7 ml LngAxs 6.75 cm LV SV 43.7 ml LngAxs 7.22 cm LV SV BP 54.1 ml LVPW LVPWd 1.3 cm Ventricular Septum IVSd 1.3 cm Left Atrium LA a-p 3.7 cm (2.8-3.4)* LA VOLBP 66.9 ml Aorta Ao Rtd 4 cm Ao Asc 3.9 cm (2.1-3.4)* LVOT LVOT 2.4 cm LVOTArea 4.52 cm2 Ratios IVS LA Biplane LAVol I BP 27.6 ml/m2 RA Single Plane Right Atrium MO 9.68 mm Right Atrium Sy 34.3 ml Right Atrium Sy 47.3 mm Right Atrium Sy 14.2 ml/m2 Right Atrium Sy 14 cm2 Right Ventricle Right Ventricle 31 mm Right Ventricle 21 mm Major Miranda 76 mm MMODE TA Tricuspid Annul 24.3 mm <Electronic Signature> 03/06/2024 11:37 AM Dale Shahid M.D. Dale Shahid MD ECHO Final Res ult * (ABNORMAL) HEMOGLOBIN, GLYCOSYLATED (01/27/2024 8:03 AM CDT) HGB A1C 6.1(H) <5.7 % 01/27/2024 9:46 AM CDT [facility] Comment: INCREASED RISK OF DIABETES <5.7% ?NON-DIABETES 5.7-6.4% INCREASED RISK FOR FUTURE DIABETES > OR = 6.5 CONSISTENT WITH DIABETES STANDARDS OF MEDICAL CARE IN DIABETES-2010 DIABETES CARE, 33(SUPP 1): S1-S61,2009 ESTIMATED AVG GLUCOSE 128 mg/dL 01/27/2024 9:46 AM CDT [facility] 01/27/2024 8:03 AM CDT [facility] Final Result Performing Organization Address [facility] de Phone Number [facility] [address] [place] [address], [place] [phone] * PROSTATE SPECIFIC ANTIGEN,SCREENING (01/27/2024 8:03 AM CDT) PSA 2.69 <4.00 NG/ML 01/27/2024 9:46 AM CDT [facility] Comment: Test was performed using the Siemens method. ??Results obtained with other assay methods or kits cannot be used interchangeably with results obtained by the Siemens method. 01/27/2024 8:03 AM CDT [facility] Final Result [facility] [address] [place] [address], * (ABNORMAL) COMPREHENSIVE METABOLIC PANEL (01/27/2024 8:03 AM CDT) [facility] GLUCOSE 131(H) 70 - 99 MG/DL 01/27/2024 10:00 AM CDT [facility] BUN 27(H) 7 - 18 MG/DL 01/27/2024 10:00 AM CDT [facility] CREATININE S/P/B 1.19 0.7 - 1.3 MG/DL 01/27/2024 10:00 AM T [facility] SODIUM S/P/B 140 136 - 145 MMOL/L 01/27/2024 10:00 AM CDT [facility] POTASSIUM S/P/B 4.5 3.5 - 5.1 MMOL/L 01/27/2024 10:00 AM T [facility] CHLORIDE S/P/B 105 100 - 108 MMOL/L 01/27/2024 10:00 AM T [facility] CO2 27.1 21 - 32 MMOL/L 01/27/2024 10:00 AM CDT [facility] CALCIUM S/P/B 9.0 8.5 - 10.1 MG/DL 01/27/2024 10:00 AM T [facility] BILIRUBIN TOTAL S/P/B 1.2 0.2 - 1.2 MG/DL 01/27/2024 10:00 AM T [facility] TOTAL PROTEIN S/P/B 7.0 6.4 - 8.2 G/DL 01/27/2024 10:00 AM T [facility] ALBUMIN S/P/B 3.7 3.4 - 5.0 G/DL 01/27/2024 10:00 AM CDT [facility] AST 22 15 - 37 U/L 01/27/2024 10:00 AM [facility] ALT 43 16 - 60 U/L 01/27/2024 10:00 AM T [facility] ALKALINE PHOSPHATASE S/P/B 81 50 - 136 U/L 01/27/2024 10:00 AM T [facility] ANION GAP 7.9 5 - 15 MMOL/L 01/27/2024 10:00 AM [facility] BUN CREATININE RATIO 22.7 6 - 26 01/27/2024 10:00 AM [facility] A/G RATIO 1.1 1.0 - 2.0 RATIO 01/27/2024 10:00 AM [facility] GFR ESTIMATE 66(L) >90 ML/MIN/1.7 3 M2 01/27/2024 10:00 AM [facility] Comment: NOTE: eGFR is not calculated for patients <18 years of age. This is an estimated GFR calculation using the new CKD EPI creatinine equation without race and so does not require a correction factor for race. This estimated GFR should not be used for calculating drug doses. 01/27/2024 8:03 AM CDT us [facility] Final Result [facility] [address] [place] [address], * LIPID PANEL (01/27/2024 8:03 AM CDT) CHOLESTEROL 117 <200.0 MG/DL 01/27/2024 11:22 AM T [facility] TRIGLYCERIDES 48 <150 MG/DL 01/27/2024 11:22 AM T [facility] HDL 49 >40.0 MG/DL 01/27/2024 11:22 AM [facility] LDL (CALCULATED) 58 <100 MG/DL 01/27/20 11:22 AM [facility] NON HDL CHOLESTEROL 68 <130 MG/DL 01/26 11:22 AM [facility] CHOL/HDL RATIO 2.4 0.0 - 4.5 01/27/2024 11:22 AM [facility] VLDL CALCULATION 10 5 - 55 MG/DL 01/27/2024 11:22 AM [facility] LIPID INTERPRETATION 01/27/2024 11:22 AM [facility] Comment: [facility] CONCENSUS REPORT RECOMMENDATIONS: ?ADULT ?CHILD ??LOW RISK: ?CHOLESTEROL ? <200 ? <170 ?TRIGLYCERIDE ?<150 ?--- ?HDL ? >=60 ?--- ?LDL ? <100 ? <110 ??BORDERLINE: ?CHOLESTEROL ? 200-239 ?? 170-199 ?TRIGLYCERIDE ?150-199 ? --- ?HDL ?40-59 ?--- ?LDL ? 100-159 ?? 110-129 ??HIGH RISK: ?CHOLESTEROL ? >=240 ?>=200 ?TRIGLYCERIDE ?>=200 ? --- ?HDL ?<40 ?--- ?LDL ? >=160 ?>=130 01/27/2024 8:03 AM CDT Dinorah Velazquez BUSINESS TRAINER LABORATORY Final Result [facility] [address] [place] [address], * (ABNORMAL) CBC W/DIFF AUTOMATED (01/27/2024 8:03 AM CDT) Pathologist [facility] WBC 3.92(L) 4.4 - 11.0 x10'3/uL 01/27/2024 9:29 AM CDT [facility] RBC 4.63 4.50 - 5.90 x10'6/uL 01/27/2024 9:29 AM CDT [facility] HGB 14.2 14.0 - 17.5 G/DL 01/27/2024 9:29 AM CDT [facility] HCT 41.9 41.5 - 50.4 % 01/27/2024 9:29 AM CDT [facility] MCV 90.5 80.0 - 96.0 FL 01/27/2024 9:29 AM CDT [facility] MCH 30.7 26.5 - 31.4 PG 01/27/2024 9:29 AM CDT [facility] MCHC 33.9 31.9 - 34.8 G/DL 01/27/2024 9:29 AM CDT [facility] RDW 13.9 12.3 - 14.3 % 01/27/2024 9:29 AM CDT [facility] PLT 236 151 - 353 x10'3/uL 01/27/2024 9:29 AM T [facility] MPV 9.0(L) 9.7 - 11.9 FL 01/27/2024 9:29 AM CDT [facility] RBC MORPHOLOGY NORMAL 01/27/2024 9:29 AM T [facility] PLT MORPH. NORMAL 01/27/2024 9:29 AM T [facility] WBC MORPHOLOGY NORMAL 01/27/2024 9:29 AM T [facility] LYMPHOCYTES % 20.2 15.8 - 45.0 % 01/27/2024 9:29 AM T [facility] NEUTROPHILS % 61.6 42.1 - 71.9 % 01/27/2024 9:29 AM CDT [facility] MONOCYTES % 12.8(H) 5.7 - 12.5 % 01/27/2024 9:29 AM [facility] EOSINOPHILS 4.1 0.0 - 5.6 % 01/27/2024 9:29 AM T [facility] BASOPHILS 0.8 0.0 - 1.3 % 01/27/2024 9:29 AM T [facility] ABS. NEUTROPHILS 2.42 1.40 - 6.00 x10'3/uL 01/27/2024 9:29 AM T [facility] IMMATURE GRANS % 0.5 0.0 - 0.5 % 01/27/2024 9:29 AM T [facility] ABS. LYMPHOCYTES 0.79(L) 0.80 - 4.70 x10'3/uL 01/27/2024 9:29 AM CDT [facility] 01/27/2024 8:03 AM CDT us Amado RÍOS LABORATORY Final Result Performing Organization Address [facility]/ZIP Co de Phone Number [facility] [address] [place] [address], [place] [phone] * THYROXINE, FREE (FT4) (01/27/2024 8:03 AM CDT) FREE T4 1.22 0.76 - 1.46 NG/DL 01/27/2024 10:00 AM CDT [facility] 01/27/2024 8:03 AM CDT Amado RÍOS LABORATORY Final Result Performing Organization Address [facility] Co de Phone Number [facility] [address] [place] [address], [place] [phone] * (ABNORMAL) THYROID STIM HORMONE TSH (01/27/2024 8:03 AM CDT) TSH 0.336(L) 0.358 - 3.74 uIU/ML 01/27/2024 10:00 AM CDT [facility] Comment: HIGH DOSES OF BIOTIN MAY INTERFERE WITH THIS TEST RESULT. CORRELATION TO CLINICAL HISTORY AND PRESENTATION RECOMMENDED. 01/27/2024 8:03 AM CDT us Amado RÍOS LABORATORY Final Result Performing Organization Address [facility]/ZIP Co de Phone Number [facility] [address] [place] [address], [place] [phone] * VITAMIN D, 25 OH (01/27/2024 8:03 AM CDT) VITAMIN D 25 HYDROXY S/P/B 53 30 - 100 NG/ML 01/27/2024 9:46 AM CDT [facility] Comment: ? INTERPRETATION ? DEFICIENT ??<20 ? INSUFFICIENT 20-29 ?SUFFICIENT 30-100 01/27/2024 8:03 AM CDT Amado RÍ[facility] LABORAT[facility] Final Result [facility] [address] [place] [address], * COLONOSCOPY GENERIC (11/29/2014) 11/29/2014 us [facility] Scanned SCANNING Final Resu lt from Last 3 Months or Most Recently Relevant to Health Maintenance Additional Health Concerns Infection Onset Date Last Indicated COVID-19 Confirmed 04/06/2024 04/06/2024 Insurance AETNA MED REPLACE AETNA Care Teams Video Network Engineer Relationship Specialty [place] [address] [place] [address] PCP - General Physician Pediatric Cns Medical 06/25/23
--- OUTSIDE RECORDS SUMMARY | 2024-04-11 05:34 | XMS_ITS | Encounter Summary ---
Author Organization [facility] Address [address] [place] [address]. [place] [address] [place] [address] Care Team Providers Care Hot Dip Plating Supervisor Name Role Phone Amado Mathew Primary Care Provider [phone] Reason for Visit * Reason Onset Date Comments Lab Order 01/27/2024 Encounter Details Date Type Department Care Team (Late st Contact Info) Description 01/27/2024 Telephone [facility], [address] [place], [place] [phone] Dinorah Velazquez FNP 3 [facility] [address] [place], [place] [phone] Lab Order Social History Tobacco Use Types Packs/Day Years [...] CDT Gender Identity Male 06/12/2021 5:16 AM SHIPPING AND RECEIVING COORDINATOR Sexual Orientation Straight 06/28/2021 10 :21 AM CDT documented as of this encounter Progress Notes * Emily Centeno RN - 01/27/2024 9:53 AM CDT Order placed and [facility] lab notified. Emily BARLOW * Emily Centeno RN - 01/27/2024 9:52 AM CDT ----- Message from Dinorah Velazquez sent at 01/27/2024 9:36 AM CDT ----- Ok to add lipids. Thanks ----- Message ----- From: Emily Centeno RN Sent: 01/27/2024 9:34 AM CDT To: TRISTEN Melo Can we add lipids on for him? ----- Message ----- From: Breann Valdes Sent: 01/27/2024 9:33 AM CDT To: Emily Centeno RN Pt calling in for a lipid panel. Last lipid was done 01/2023. Pt has blood work today and would like them to be able to use that blood for this lipid. Can we see if ok to add lipid documented in this encounter Plan of Treatment Upcoming Encounters Date Type Department Care Team (Late st Contact Info) Description 08/05/2024 10:00 AM CDT Office Visit [facility] Medical Group Family & Internal Medicine [facility] [id number] [place] [address] [place] [address] [place] [address] 02/15/2025 10:45 AM SHIPPING AND RECEIVING COORDINATOR Office Visit [facility] [address] [place] [address] Dale Shahid MD [address] [place] [address] documented as of this encounter Results * LIPID PANEL (01/27/2024 8:03 AM CDT) [facility] CHOLESTEROL 117 <200.0 MG/DL 01/27/2024 11:22 AM T [facility] TRIGLYCERIDES 48 <150 MG/DL 01/27/2024 11:22 AM T [facility] HDL 49 >40.0 MG/DL 01/27/2024 11:22 AM [facility] LDL (CALCULATED) 58 <100 MG/DL 01/27/20 11:22 AM [facility] NON HDL CHOLESTEROL 68 <130 MG/DL 01/26 11:22 AM [facility] CHOL/HDL RATIO 2.4 0.0 - 4.5 01/27/2024 11:22 AM [facility] VLDL CALCULATION 10 5 - 55 MG/DL 01/27/2024 11:22 AM [facility] LIPID INTERPRETATION 01/27/2024 11:22 AM [facility] Comment: NIH CONCENSUS REPORT RECOMMENDATIONS: [...] ? >=160 ?>=130 01/27/2024 8:03 AM CDT us Dinorah Velazquez DIRECTOR OF STRATEGIC MARKETING LABORATORY Final Result Performing Organization Address City/State/[facility] Co de Phone Number [facility] () [facility] [address] [place] [address], documented in this encounter Visit Diagnoses Diagnosis Dyslipidemia- Primary Other and unspecified hyperlipidemia documented in this encounter Additional Health Concerns Assessment Noted Time PHQ-9 Depression Total Score: 0 12/14/19 21 9:36 AM CDT documented as of this encounter Care Teams Hot Dip Plating Supervisor Relationship Specialty [place] [address] [place] [address] PCP - General Physician Archivist Political History Medical 06/25/23 documented as of this encounter
--- OUTSIDE RECORDS SUMMARY | 2024-04-11 05:34 | XMS_ITS | Encounter Summary ---
Author Organization [facility] Address [address] [place] [address]. [place], [place] [address] [place] [address] Care Team Providers Care Geothermal Powerplant Mechanic Helper Name Role Phone Amado Mathew Primary Care Provider [phone] Reason for Referral * Imaging (Routine) - Closed Specialty Diagnoses / Procedures Referred By Emiliano gomez Referred To Contact RADIOLOGY Diagnoses Mild aortic regurgitation Procedures USE ECHOCARDIOGRAM Dale Shahid MD [facility], [address] [place] [address] Phone: tel: fax: Referral ID Status Reason Start Date Expiration Date Visits Re quested Visits Authorized [id number] Closed 02/11/2024 03/13/2025 1 1 UTER AIDE Reason for Visit * Imaging (Routine) - Closed Specialty Diagnoses / Procedures Referred By Emiliano gomez Referred To Contact RADIOLOGY Diagnoses Mild aortic regurgitation Procedures USE ECHOCARDIOGRAM Dale Shahid MD [facility], [address] [place] [address] Phone: tel: fax: Referral ID Status Reason Start Date Expiration Date Visits Re quested Visits Authorized [id number] Closed 02/11/2024 03/13/2025 1 1 Encounter Details Date Type Department Care Team (Late st Contact Info) Description 03/05/2024 9:37 AM COMPUTER AIDE - 03/05/2024 11:59 PM COMPUTER AIDE Hospital Encounter [facility] Non [place]vasive [place] [address] Dale Shahid MD Three [facility] [address] [place] [address] Discharge Disposition: Home or Self Care (Routine Discharge) Social History Tobacco Use Types Packs/Day Years [...] CDT Gender Identity Male 06/12/2021 5:16 AM COMPUTER AIDE Sexual Orientation Straight 06/28/2021 10 :21 AM CDT documented as of this encounter Medications at Time of Discharge [...] 100 MG Cap Take by mouth daily. levothyroxine (SYNTHROID) 125 MCG tabletIndications:Ot her specified hypothyroidism Take 1 tablet (125 mcg total) by mouth every morning. 90 tablet 1 02/05/2024 Multiple Vitamins-Minerals (CENTRUM SILVER) Tab Take 1 [...] TWICE A DAY 180 tablet 3 03/27/2023 4 ezetimibe (ZETIA) 10 MG tablet take 1 tablet by mouth every day 90 tablet 2 06/24/2023 4 documented as of this encounter Plan of Treatment Upcoming Encounters Date Type Department Care Team (Late st Contact Info) Description 08/05/2024 10:00 AM CDT Office Visit [facility] Medical Group Family & Internal Medicine [facility] [address] [place] [address] [place] [address] [place] [address] 02/15/2025 10:45 AM COMPUTER AIDE Office Visit [facility] [address] [place] [address] Dale Shahid MD [facility], [address] [place] [address] documented as of this encounter Procedures Procedure Name Priority Date/Time Associated Diagnosis Comments USE ECHOCARDIOGRAM Routine 03/05/2024 10 :26 AM COMPUTER AIDE Mild aortic regurgitation documented in this encounter Results * USE ECHOCARDIOGRAM (03/05/2024 10:26 AM COMPUTER AIDE) Anatomical Region Laterality Modality Cardiac Echocardiogram 03/05/2024 9:57 AM COMPUTER AIDE Narrative 03/06/2024 11:37 AM COMPUTER AIDE ?Echocardiography Report Pat.Name: ??RADHA ZHANG ? Pat.ID: ?[id number] ? St.Date: ?? 03/05/2024 ? Refer.MD: ??[id number] OCHIENG DALE O ? EWDPROV ?EWDPROV Exam Time: 9:57:00 AM ? Study Type:ECHO WITH CARDIAC DOPPLER COMP Height: ?72 in ? Weight: ?270 lb ? BSA: ? 2.42 m2 ?Age: ??1955,68Y ? Sex: ? M ? BP: ?149/80 ? HR: ?61 bpm ?Sonogrphr: James. Manriquez RCS ? Pat. Stat.:Outpatient ? Reason for [...] ? Right Ventricle ?21 mm ?? Major Seminole ?76 mm ?MMODE TA ?? Tricuspid Annul ??24.3 mm ? <Electronic Signature> 03/06/2024 11:37 AM Dale Shahid M.D. Procedure Note Dale Shahid MD - 03/06/2024 Echocardiography Report Pat.Name: RADHA ZHANG Pat.ID: [id number] .Date: 03/05/2024 Refer.: [id number] JUAN DIEGO Shi EWDPROV EWDPROV Exam Time: 9:57:00 AM Study Type:ECHO WITH CARDIAC DOPPLER COMP Height: 72 in Weight: 270 lb BSA: 2.42 m2 Age: 7 1955,68Y Sex: M BP: 149/80 HR: 61 bpm Sonogrphr: James. Mitra GARCIA Pat. Stat.:Outpatient Reason for Study:Aortic insufficiency Procedures: [...] 31 mm Right Ventricle 21 mm Major Seminole 76 mm MMODE TA Tricuspid Annul 24.3 mm <Electronic Signature> 03/06/2024 11:37 AM Dale Shahid M.D. us Dale Shahid MD ECHO Final Res ult documented in this encounter Visit Diagnoses Diagnosis Mild aortic regurgitation Aortic valve disorders documented in this encounter Additional Health Concerns Assessment Noted Time PHQ-9 Depression Total Score: 0 12/14/19 21 9:36 AM CDT documented as of this encounter Care Teams Geothermal Powerplant Mechanic Helper Relationship Specialty [place] [address] [place] [address] PCP - General Physician Process Control Technician Medical 06/25/23 documented as of this encounter
--- OUTSIDE RECORDS SUMMARY | 2024-04-11 05:34 | XMS_ITS | Encounter Summary ---
Author Organization [facility] Address [address] [place] [address]. [place], [place] [address] [place] [address] Care Team Providers Care Cafeteria Attendant Name Role Phone Amado Mathew Primary Care Provider [phone] Encounter Details Date Type Department Care Team (Late st Contact Info) Description 08/06/2023 11:00 AM CDT Laboratory Only [facility] Medical Group Family & Internal Medicine [facility] [address] [place] [address] Amado Mathew PA [address] [place] [address] Social History Tobacco Use Types Packs/Day Years [...] Date Recorded Patient Health Questionnaire-2 Score 0 08/06/2023 Sex and Gender Information Value Date Recorded Sex Assigned at Not on file Legal Sex Male 7:33 PM CDT Gender Identity Male 06/12/2021 5:16 AM ABRASIVE COATING MACHINE OPERATOR Sexual Orientation Straight 06/28/2021 10 :21 AM CDT documented as of this encounter Plan of Treatment Upcoming Encounters Date Type Department Care Team (Late st Contact Info) Description 08/05/2024 10:00 AM CDT Office Visit [facility] Medical Group Family & Internal Medicine [facility] [address] [place] [address] [place] [address] [place] [address] 02/15/2025 10:45 AM ABRASIVE COATING MACHINE OPERATOR Office Visit [facility] [address] [place], [place] [phone] Dale Shahid MD [facility], [address] [place] [address] documented as of this encounter Procedures Procedure Name Priority Date/Time Associated Diagnosis Comments VENIPUNC ARM DRAW Routine 08/06/2023 10:37 AM CDT Other specified hypothyroidism Prediabetes documented in this encounter Visit Diagnoses Diagnosis Other specified hypothyroidism- Primary Prediabetes Other abnormal glucose documented in this encounter Additional Health Concerns Assessment Noted Time PHQ-9 Depression Total Score: 0 12/14/19 21 9:36 AM CDT documented as of this encounter Care Teams Cafeteria Attendant Relationship Specialty [place] [address] [place] [address] PCP - General Physician Diaphragm Builder Medical 06/25/23 documented as of this encounter
--- OUTSIDE RECORDS SUMMARY | 2024-04-11 05:34 | XMS_ITS | Encounter Summary ---
Author Organization [facility] Address [address] [place] [address]. [place], [place] [address] [place] [address] Care Team Providers Care Fly Raiser Lockstitch Name Role Phone Amado Mathew Primary Care Provider [phone] Encounter Details Date Type Department Care Team (Late st Contact Info) Description 01/27/2024 [email or web address] Message Enc [facility], [address] [place], [place] [phone] Dinorah Velazquez FNP 3 [facility] [place] [address] [place], [place] [phone] Lipid panel resuls Social History Tobacco Use Types Packs/Day Years [...] CDT Gender Identity Male 06/12/2021 5:16 AM CHAIRMAN PRESIDENT AND CHIEF EXECUTIVE OFFICER Sexual Orientation Straight 06/28/2021 10 :21 AM CDT documented as of this encounter Plan of Treatment Upcoming Encounters Date Type Department Care Team (Late st Contact Info) Description 08/05/2024 10:00 AM CDT Office Visit [facility] Medical Group Family & Internal Medicine [facility] [address] [place] [address] [place] [address] [place] [address] 02/15/2025 10:45 AM CHAIRMAN PRESIDENT AND CHIEF EXECUTIVE OFFICER Office Visit [facility] [address] [place], [place] [phone] Dale Shahid MD [facility], [address] [place] [address] documented as of this encounter Visit Diagnoses Not on filedocumented in this encounter Additional Health Concerns Infection Onset Date Last Indicated Resolved Time COVID-19 Rule Out 04/06/2024 04/06/2024 04/06/2024 7:33 AM CHAIRMAN PRESIDENT AND CHIEF EXECUTIVE OFFICER COVID-19 Confirmed 04/06/2024 04/06/2024 Assessment Noted Time PHQ-9 Depression Total Score: 0 12/14/19 21 9:36 AM CDT documented as of this encounter Care Teams Fly Raiser Lockstitch Relationship Specialty [place] [address] [place] [address] PCP - General Physician Tie Loader Medical 06/25/23 documented as of this encounter
--- OUTSIDE RECORDS SUMMARY | 2024-04-11 05:34 | XMS_ITS | Encounter Summary ---
Author Organization [facility] Address [address] [place] [address]. [place], [place] [address] [place] [address] Care Team Providers Care Networking Administrator Name Role Phone Amado Mathew Primary Care Provider [phone] Encounter Details Date Type Department Care Team (Latest Contact Info) Description 01/07/2024 Travel Social History Tobacco Use Types Packs/Day [...] CDT Gender Identity Male 06/12/2021 5:16 AM SIPHON OPERATOR Sexual Orientation Straight 06/28/2021 10 :21 AM CDT documented as of this encounter Plan of Treatment Upcoming Encounters Date Type Department Care Team (Late st Contact Info) Description 08/05/2024 10:00 AM CDT Office Visit [facility] Medical Group Family & Internal Medicine [facility] [address] [place], [place] [phone] [place] [address] [place] [address] 02/15/2025 10:45 AM SIPHON OPERATOR Office Visit [facility] [address] [place], [place] [phone] Dale Shahid MD [facility], [address] [place] [address] documented as of this encounter Visit Diagnoses Not on filedocumented in this encounter Additional Health Concerns Assessment Noted Time PHQ-9 Depression Total Score: 0 12/14/19 21 9:36 AM CDT documented as of this encounter Care Teams Networking Administrator Relationship Specialty [place] [address] [place] [address] PCP - General Physician Shank Sorter Medical 06/25/23 documented as of this encounter
--- OUTSIDE RECORDS SUMMARY | 2024-04-11 05:34 | XMS_ITS | Encounter Summary ---
Author Organization [facility] Address [address] [place] [address]. [place], [place] [address] [place] [address] Care Team Providers Care Medical Surgery Nurse Name Role Phone Amado Mathew Primary Care Provider [phone] Reason for Visit * Reason Comments Cough Chest congestion. Sy mptoms X2 weeks Encounter Details Date Type Department Care Team (Late st Contact Info) Description 08/14/2023 8:00 AM CDT Office Visit [facility] Family & Internal Medicine [facility] [id number] [place] [address] Mahnaz Dey [place] [id number] [place] [address] Cough (Chest congestion. 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 Alcohol Use Standard Drinks/Week Comments Not Currently [...] CDT Gender Identity Male 06/12/2021 5:16 AM HEAD MVA REACTOR OPERATOR Sexual Orientation Straight 06/28/2021 10 :21 AM CDT documented as of this encounter Last Filed Vital Signs Vital Sign Reading Time Taken Comments Blood Pressure 135/86 08/14/2023 7:52 AM CDT Pulse 63 08/14/2023 7:52 AM CDT Temperature 36.4 ??C (97.5 ??F) 08/14/2023 7:52 AM CD T Respiratory Rate 20 08/14/2023 7:52 AM CDT Oxygen Saturation 98% 08/14/2023 7:52 AM CDT Inhaled Oxygen Concentration - - Weight 124.7 kg (275 lb) 08/14/2023 7:52 AM CDT Height 182.9 cm (6') 08/14/2023 7:52 AM CDT Body Mass Index 37.3 08/14/2023 7:52 AM CDT documented in this encounter Patient Instructions * Attachments The following attachments cannot be sent through Care Everywhere. * Acute Bronchitis Discharge Instructions, Adult ([place] Citizen) documented in this encounter Progress Notes * KHUSHBU Pearl - 08/14/2023 8:00 AM CDT Images from the original note were not included. _ Reason for Visit: Cough (Chest congestion. Symptoms X2 weeks) History of Present Illness: HPI Radha Zhang is a 67-year-old male here for patient or evaluation through the walk-in clinic for symptoms of upper respiratory infection to include nasal congestion, mild scratchy or sore throat, without a headache. Patient denies symptoms of visual disturbance orvomiting. Patient has not noticed a fever. Patient has a cough with out wheezing. Patient denies shortness of breath. Patient has not had loose stools. Patient has been symptomatic for over 2 weeks and is not improving with symptoms. ROS: Review of Systems Feeling ill. Denies vision or hearing problems. Denies dysphagia, heartburn or indigestion. No dyspnea or chest pain on exertion. No nausea, abdominal pain, change in bowel habits, black or bloody stools. No urinary tract symptoms. No muscle or joint aches or pains. No foot or leg edema. No numbness, tingling,or weakness. No anxiety or depressive symptoms, Sleeping well. No significant weight gain or loss. Positive fatigue. Medications: Outpatient Medications Marked as Taking for the 08/14/23 encounter (Office Visit) with KHUSHBU Pearl Medication Sig Dispense Refill ASPIRIN EC 81 MG tablet Take 1 tablet (81 mg total) by mouth daily. atorvastatin (LIPITOR) 80 MG tablet Take 1 tablet (80 mg total) by mouth nightly at bedtime. 90 tablet 3 carvedilol (COREG) 3.125 MG tablet TAKE 1 TABLET BY MOUTH TWICE A DAY 180 tablet 3 Coenzyme Q10 (COQ10) 100 MG Cap Take by mouth daily. doxycycline hyclate (VIBRAMYCIN) 100 MG capsule Take 1 capsule (100 mg total) by mouth 2 (two) times daily for 10 days. 20 capsule 0 ezetimibe (ZETIA) 10 MG tablet take 1 tablet by mouth every day 90 tablet 2 levothyroxine (SYNTHROID) 125 MCG tablet Take 1 tablet (125 mcg total) by mouth every morning. 90 tablet 1 Multiple Vitamins-Minerals (CENTRUM SILVER) Tab Take 1 tablet by mouth daily. nitroglycerin 0.[address] 1 tablet (0.4 mg total) under the tongue. potassium citrate CR 10 MEQ (1080 MG) tablet Take 1 tablet (10 mEq total) by mouth 3 (three) times daily with meals. vitamin D3, cholecalciferol, 75 MCG (3000 UT) Tab tablet Take 1 tablet (3,000 Units total) by mouthdaily. 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) Smokeless tobacco: Never Vaping Use Vaping status: Never Used Substance Use Topics Alcohol use: Not Currently Comment: occasional glass of wine Drug use: No Family History Problem Relation Name Age [...] Other Family Status Relation Name Status Mother Father Brother (Not Specified) Daughter (Not Specified) Son (Not Specified) MAunt (Not Specified) MUncle (Not Specified) PAunt (Not Specified) PUncle (Not Specified) MGM (Not Specified) MGF (Not Specified) PGM (Not Specified) PGF (Not Specified) Other (Not Specified) No partnership data on file Fall Risk One or more falls in the last year:: No Feels unsteady when walking:: No Worried about falling:: No Physical Exam Constitutional: Patient is oriented to person, place, and time. Patient appears well-developed and well-nourished. HENT: Right Ear: External ear normal. Left Ear: External ear normal. Head: Normocephalic. Frontal sinus tenderness Nose: Nose normal. Turbinates are swollen Mouth/Throat: Oropharynx is clear and moist. Positive postnasal drainage Eyes: Pupils are equal, round, and reactive to light. Neck: No JVD present. No thyromegaly present. No nuchal rigidity Cardiovascular: Normal rate, regular rhythm, normal heart sounds and intact distal pulses. No murmur heard. Pulmonary/Chest: No respiratory distress. Patient has no wheezes. Patient has no rales. Patient exhibits no tenderness. Abdominal: Patient exhibits no distension and no mass. There is no tenderness. There is no rebound and no guarding. Musculoskeletal: Normal range of motion. Patient exhibits no edema, tenderness or deformity. Lymphadenopathy: Patient has positive cervical adenopathy. Neurological: Patient is alert and oriented to person, place, and time. Skin: No rash noted. No erythema. Psychiatric: Patient has a normal mood and affect. The behavior is normal. Thought content normal. No data to display Vitals: 08/14/23 0752 BP: 135/86 Pulse: 63 Body mass index is 37.3 kg/m??. Assessment and Plan Encounter Diagnose(s) ICD-10-CM SNOMED CT(R) 1. Bronchitis J40 BRONCHITIS doxycycline hyclate (VIBRAMYCIN) 100 MG capsule Orders Placed This Encounter doxycycline hyclate (VIBRAMYCIN) 100 MG capsule Patient was told to push liquids and get lots of rest. Patient was told to use Tylenol for fever. Patient was told that if symptoms do not improve to utilize the emergency room, call their PCP, or follow back up with the walk-in clinic. If patient needs any additional time off not discussed and spelled out in a work release at this office visit they will need to contact the PCP or be seen in the walk in clinic. Patient should follow annual wellness exams recommended for age and sex of patient. Items to consider but not limited included yearly annual fasting labs, colonscopy or cologuard when indicated. PSA and prostate for males. Mammogram and female exam for females, Portions of this note were dictated using [employer] speech recognition software. Occasional wrong wordor sound-alike substitutions may have occurred due to the inherent limitations of voice recognition software. Please read the chart carefully and recognize, using context, where the substitutions may have occurred. Mahnaz Dey PA-C evaluated and Dr. Eliza Kennedy reviewed and agrees with plan. documented in this encounter Plan of Treatment Upcoming Encounters Date Type Department Care Team (Late st Contact Info) Description 08/05/2024 10:00 AM CDT Office Visit [facility] Family & Internal Medicine - [address] [address] Amado Mathew [place] [id number] [place] [address] 02/15/2025 10:45 AM HEAD MVA REACTOR OPERATOR Office Visit [facility] [address] [place] [address] Dale Shahid MD [facility], [address] [place] [address] documented as of this encounter Visit Diagnoses Diagnosis Bronchitis- Primary Bronchitis, not specified as acute or chronic documented in this encounter Additional Health Concerns Assessment Noted Time PHQ-9 Depression Total Score: 0 12/14/19 21 9:36 AM CDT documented as of this encounter Care Teams Medical Surgery Nurse Relationship Specialty [place] [address] [place] [address] PCP - General Physician Organic Lab Worker Medical 06/25/23 documented as of this encounter
--- OUTSIDE RECORDS SUMMARY | 2024-04-11 05:34 | XMS_ITS | Encounter Summary ---
Author Organization [facility] Address [address] [place] [address]. [place], [place] [address] [place] [address] Care Team Providers Care Clothing Trades Workers Name Role Phone Amado Mathew Primary Care Provider [phone] Reason for Visit * Reason Comments New Patient Right middle trigger finger * Surgical (Routine) - Authorized Specialty Diagnoses / Procedures Referred By Emiliano gomez Referred To Contact Diagnoses Trigger finger, right middle finger Procedures OFFICE/OUTPATIENT NEW LOW MDM 30-44 MINUTES OFFICE/OUTPT VISIT,NEW,LEVL IV OFFICE/OUTPT VISIT,NEW,LEVL V OFFICE/OUTPT VISIT,EST,LEVL III OFFICE/OUTPT VISIT,EST,LEVL IV OFFICE/OUTPT VISIT,[place] [address] [place] [address] Phone: tel: fax: Jose Hackett NP [address] [place] [address] Phone: tel: fax: Referral ID Status Reason Start Date Expiration Date V isits Requested Visits Authorized [id number] Authorized 10/28/2023 11/26/2024 99 99 Encounter Details Date Type Department Care Team (Late st Contact Info) Description 10/31/2023 9:00 AM CDT Office Visit [facility] Orthopedic & Sports Medicine - [place] [address] [place] [address] Jose Hackett NP [address] [place] [address] New Patient (Right middle trigger finger) Social History Tobacco Use Types Packs/Day Years Used Date Smoking Tobacco: Never Passive Smoke Exposure: Past Smokeless Tobacco: Never Tobacco Cessation:Counseling Given: No 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 Alcohol Use Standard Drinks/Week Comments Not [...] CDT Gender Identity Male 06/12/2021 5:16 AM ROLLER Sexual Orientation Straight 06/28/2021 10 :21 AM CDT documented as of this encounter Last Filed Vital Signs Vital Sign Reading Time Taken Comments Blood Pressure 133/87 10/31/2023 9:01 AM CDT Pulse 61 10/31/2023 9:01 AM CDT Temperature 36.6 ??C (97.8 ??F) 10/31/2023 9:01 AM CD T Respiratory Rate - - Oxygen Saturation 98% 10/31/2023 9:01 AM CDT Inhaled Oxygen Concentration - - Weight 124.4 kg (274 lb 3.2 oz) 10/31/2023 9:01 AM CDT Height 182.9 cm (6') 10/31/2023 9:01 AM CDT Body Mass Index 37.19 10/31/2023 9:01 AM CDT documented in this encounter Patient Instructions * Patient Instructions* Jose Hackett NP - 10/31/2023 9:00 AM CDT Home Care After a Steroid Injection What is a steroid injection and what are they used for? Steroid injections are used for many different treatments and to help diagnose a condition. The main reason that steroid injections are used is to prevent the release of substances in the body that cause inflammation. The medication in your injection is a mixture of the steroid dexamethasone and ananesthetic medication called lidocaine. What should I expect to feel after my steroid injection? After the injection, you may feel numbness for a couple of hours. Once the numbness wears off, you may feel more discomfort in the 24 - 48 hours (about 2 days) following the injection. After that time, the symptoms of pain and discomfort should begin to improve. If you experience pain and soreness at the injection site, you may take a non-steroidal, anti-inflammatory medication such as ibuprofen or naproxen if your primary care provider approves. You may also use ice to the area for 20 minutes every hour, but it is important to put a cloth between the ice and your skin so that you do not cause cold damage to the skin. If you experience an extreme amount of pain, redness, or warmth to the site, you should call our office immediately at [phone]. The injection may relieve your symptoms for days or even months, however it is possible that it does not relieve your symptoms at all. Because the injection takes a few days to begin working, it is important that you give it at least a week before coming to the office for a follow-up appointment. How do I prepare for my follow-up appointment? Keep track of the amount of time if any that the injection helped you. It is important to track anydifferences in the quality of your symptoms or the intensity of your pain. These are questions thatwe will ask you during your follow-up appointment. This information is important so that we can discuss the need for a continued treatment plan documented in this encounter Progress Notes * Jose Hackett NP - 10/31/2023 9:00 AM CDT Images from the original note were not included. OFFICE VISIT SUBJECTIVE Reason for Visit: New Patient (Right middle trigger finger) History of Present Illness: Radha Zhang is a 68-year-old right-hand dominant male presents as referred by KHUSHBU Chang with complaints of 1 month history of painful clicking and locking of right middle finger. He has prediabetes. HgbA1C was 5.9% on 10/28/2023. He has hypothyroidism. TSH was 0.809 on 08/06/2023. Denieshistory of injury, history of previous trigger fingers, history of compression neuropathy. He is accompanied by his Melanie. 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) Smokeless tobacco: Never Vaping Use Vaping status: Never Used Substance Use Topics Alcohol use: Not Currently Comment: occasional glass of wine Drug use: No Medications and Allergies: Current Outpatient Medications: amoxicillin (AMOXIL) 500 MG [...] total) by mouth daily., Disp: , Rfl: Current Facility-Administered Medications: dexamethasone (DECADRON) injection 4 mg, 4 mg, Intratendon Sheath, Once, lidocaine (XYLOCAINE) 2 % injection 1 mL, 1 mL, Other, Once, Review of patient's allergies indicates: No Known Allergies OBJECTIVE Vital Signs: Filed Vitals: 10/31/23 0901 BP: 133/87 Pulse: 61 Temp: 97.8 ??F (36.6 ??C) TempSrc: Temporal SpO2: 98% Weight: 124.4 kg (274 lb 3.2 oz) Height: 1.829 m (6') Body mass index is 37.19 kg/m??. Physical Exam: Physical Exam Constitutional: He [...] : Inspection/Palpation: Localized tender nodule in A1 hamzah of middle finger associated with painfulclicking upon [...] provocative testing Sensation: hand sensory exam intact Muscle Tone: tone normal Muscle Bulk: muscle bulk normal Skin: no skin lesions or discoloration Vascular Exam: radial artery pulse 2, ulnar artery pulse 2, capillary refill < 2 seconds Recent Imaging: No image results found. ASSESSMENT Radha was seen today for new patient. Diagnoses and all orders for this visit: Trigger middle finger of right hand - INJECT TENDON/LIGAMENT/CYST - dexamethasone (DECADRON) injection 4 mg - lidocaine (XYLOCAINE) 2 % injection 1 mL PLAN Treatment/Counselling: Trigger finger Etiology, pathophysiology and natural history of trigger finger tendonitis was discussed with the patient, including explanation of relevant anatomy. Patient provided with the handout: Trigger Finger by the [employer]. Treatment options from doing nothing, splints, therapy, anti-inflammatories by mouth, steroids by mouth or injection, A1 hamzah release by open surgery, endoscopic surgery or [...] voices understanding and wishes to proceed with steroid injection of the right middle trigger finger. Post injection instructions were provided verbally and in writing. All questions answered to the patient's satisfaction. Verbalized understanding of all instructions. Return to the clinic in 2 - 3 weeks if there is no improvement. Procedure: TRIGGER FINGER INJECTION The risks, benefits and indications of steroid injections including but not limited to elevated blood sugar infection, bleeding, injury to underlying neurovascular structures, hematoma, seroma, skin pigment discoloration, weakening of surrounding soft tissues, incomplete relief, and eventual need for more definitive surgical intervention were explained to the patient. Thepatient was in full understanding and verbalized consent to proceed with steroid injection at this time. DETAILS: right middle FINGER A1 HAMZAH: Time-out performed with patient to identify correct procedure site. Following sterile precautions, the finger site of injection was prepped with Chloroprep. 1 cc of 2% lidocaine and 1 cc of dexamethasone 4 mg/mL were injected at the site with sterile precautions uneventfully. The patient tolerated the procedure well. The injection site was covered with an adhesive bandage. The patient was informed that he may experience numbness in the area for a few hours, then more discomfort in the 24- 48 hours following the steroid injection after which symptoms of pain and discomfort should begin to resolve. I personally spent a total of 30 minutes on the day of the encounter. This includes [id number] and ntu-[id number]-face time I provided on the day of the encounter & excludes time spent performing separately reportable services. I spent an additional 4 minutes performing the procedure. JOSE HACKETT NP 10/31/2023 Cc. KHUSHBU CHANG PA documented in this encounter Plan of Treatment Upcoming Encounters Date Type Department Care Team (Late st Contact Info) Description 08/05/2024 10:00 AM CDT Office Visit [facility] Family & Internal Medicine [address] [address] Amado Mathew PA [address] [place] [id number] 02/15/2025 10:45 AM ROLLER Office Visit [facility] [address] [place] [address] Dale Shahid MD [facility], [address] [place] [address] Scheduled Orders Name Type Priority Associated Diagnoses Orde r Schedule INJECT TENDON/LIGAMENT/CYST Procedures Routine Trigger middle finger of right hand Ordered: 10/31/2023 documented as of this encounter Visit Diagnoses Diagnosis Trigger middle finger of right hand- Primary Trigger finger (acquired) documented in this encounter Administered Medications Inactive Administered Medications - up to 3 most recent administrations Medication Order MAR Action Action Date Dose Rate Site dexamethasone (DECADRON) injection 4 mg 4 mg, Intratendon Sheath, Once, 1 dose, On Beulah 10/31/23 at 0945, Administer slowly over 1-4 minutes.Indications:Trigger middle finger of right hand Given 10/31/2023 9:36 AM CDT 4 mg Other lidocaine (XYLOCAINE) 2 % injection 1 mL 1 mL, Other, Once, 1 dose, On Beulah 10/31/23 at 0945Indications:Trigger middle finger of right hand Given 10/31/2023 9:36 AM CDT 1 mL Other documented in this encounter Additional Health Concerns Assessment Noted Time PHQ-9 Depression Total Score: 0 12/14/19 21 9:36 AM CDT documented as of this encounter Care Teams Clothing Trades Workers Relationship Specialty [place] [address] [place] [address] PCP - General Physician [employer] Principal Medical 06/25/23 documented as of this encounter
--- OUTSIDE RECORDS SUMMARY | 2024-04-11 05:34 | XMS_ITS | Encounter Summary ---
Author Organization [facility] Address [address] [place] [address]. [place] [address] [place] [address] Care Team Providers Care Needle Maker Name Role Phone Amado Mathew Primary Care Provider [phone] Reason for Visit * Reason Onset Date Comments Information 10/28/2023 Cpap pressure se ttings Encounter Details Date Type Department Care Team (Late st Contact Info) Description 10/28/2023 Telephone [facility] Family & Internal Medicine [facility] [address] [place] [address] Amado Mathew [place] [id number] [place] [address] Information (Cpap pressure settings) Social History Tobacco Use Types Packs/Day Years [...] CDT Gender Identity Male 06/12/2021 5:16 AM ORACLE REPORTS DEVELOPER Sexual Orientation Straight 06/28/2021 10 :21 AM CDT documented as of this encounter Progress Notes * Jenni Marshall RN - 10/29/2023 1:55 PM CDT Called [facility] and asked them what pt's pressure setting was on his CPAP machine. They stated 4-9. Order and all info faxed to them. * Lorie Crane - 10/28/2023 11:47 AM CDT Radha calling, States he could not find any pressure settings on his cpap machine. documented in this encounter Plan of Treatment Upcoming Encounters Date Type Department Care Team (Late st Contact Info) Description 08/05/2024 10:00 AM CDT Office Visit [facility] Family & Internal Medicine [facility] [address] [place] [address] [place] [address] [place], [place] [phone] 02/15/2025 10:45 AM ORACLE REPORTS DEVELOPER Office Visit [facility] [address] [place] [address] Dale Shahid MD [facility], [address] [place], [place] [id number] documented as of this encounter Visit Diagnoses Not on filedocumented in this encounter Additional Health Concerns Assessment Noted Time PHQ-9 Depression Total Score: 0 12/14/19 9:36 AM CDT documented as of this encounter Care Teams Needle Maker Relationship Specialty [place] [address] [place] [address] PCP - General Physician Senior Research Engineer Medical 06/25/23 documented as of this encounter
--- OUTSIDE RECORDS SUMMARY | 2024-04-11 05:34 | XMS_ITS | Encounter Summary ---
Author Organization [facility] Address [address] [place] [address]. 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 Alcohol Use Standard Drinks/Week Comments Not Currently 0 (1 standard drink = 0.6 oz pur e alcohol) occasional glass of wine PHQ-2 Answer Date Recorded Patient Health Questionnaire-2 Score 0 08/08/2022 Sex and Gender Information Value Date Recorded Sex Assigned at Not on file Legal Sex Male 7:33 PM CDT Gender Identity Male 06/12/2021 5:16 AM SUPERVISOR ROUGH END Sexual Orientation Straight 06/28/2021 10 :21 AM CDT documented as of this encounter Plan of Treatment Upcoming Encounters Date Type Department Care Team (Late st Contact Info) Description 08/05/2024 10:00 AM CDT Office Visit [facility] Family & Internal Medicine [facility] [address] [place] [address] [place] [address] [place] [address] 02/15/2025 10:45 AM SUPERVISOR ROUGH END Office Visit [facility] [address] [place] [address] Dale Shahid MD [facility], [address] [place] [address] documented as of this encounter Visit Diagnoses Not on filedocumented in this encounter Additional Health Concerns Infection Onset Date Last Indicated Resolved Time COVID-19 Rule Out 02/27/2023 02/27/2023 02/27/2023 8:20 AM SUPERVISOR ROUGH END Assessment Noted Time PHQ-9 Depression Total Score: 0 12/14/19 21 9:36 AM CDT documented as of this encounter Care Teams Extractor Tender Raw Stock Relationship Specialty [place] [address] [address], [address] [place] [address] PCP - General Nurse Practitioner Family 07/20/2206/13 documented as of this encounter
--- OUTSIDE RECORDS SUMMARY | 2024-04-11 05:34 | XMS_ITS | Encounter Summary ---
Author Organization [facility] Address [address] [place] [address]. [place] [address] [place] [address] Care Team Providers Care Software Developer Consultant Name Role Phone WongKacey martinez RASHMI Primary Care Provider [phone] Encounter Details Date Type Department Care Team (Latest Contact Info) Description 02/27/2023 1:02 PM PROVIDER ENGAGEMENT EXECUTIVE - 02/27/2023 11:59 PM [facility] Encounter [facility] [address] [place], [place] [id number] [place] [address] [place], [place] [id number] Discharge Disposition: Home or Self Care (Routine [...] CDT Gender Identity Male 06/12/2021 5:16 AM PROVIDER ENGAGEMENT EXECUTIVE Sexual Orientation Straight 06/28/2021 10 :21 AM CDT documented as of this encounter Medications at Time of Discharge ASPIRIN EC 81 MG tablet Take 1 tablet (81 mg total) by mouth daily. 10/14/2020 Coenzyme Q10 (COQ10) 100 MG Cap Take [...] tablet (3,000 Units total) by mouth daily. atorvastatin (LIPITOR) 80 MG tabletIndications:Mi xed hyperlipidemia Take 1 tablet (80 mg total) by mouth nightly at bedtime. 90 tablet 3 10/09/2022 4 carvedilol (COREG) 3.125 MG tablet TAKE 1 TABLET BY MOUTH TWICE A DAY 180 tablet 1 10/01/2022 3 doxycycline hyclate (VIBRAMYCIN) 100 MG capsuleIndications:B ronchitis Take 1 capsule (100 mg total) by mouth 2 (two) times daily for 10 days. 20 capsule 02/27/2023 3 ezetimibe (ZETIA) 10 MG tablet TAKE 1 TABLET BY MOUTH EVERY DAY 90 tablet 1 12/25/2022 4 levothyroxine (SYNTHROID) 125 MCG tabletIndications:Ot her specified hypothyroidism TAKE 1 TABLET BY MOUTH EVERY MORNING 90 tablet 12/05/2022 3 melatonin 5 MG tablet 12/14/2022 4 meloxicam (MOBIC) 15 MG tablet Take 1 tablet (15 mg total) by mouth daily. 4 documented as of this encounter Plan of Treatment Upcoming Encounters Date Type Department Care Team (Late st Contact Info) Description 08/05/2024 10:00 AM CDT Office Visit [facility] Family & Internal Medicine [facility] [id number] [place] [address] [place] [id number] [place] [address] 02/15/2025 10:45 AM PROVIDER ENGAGEMENT EXECUTIVE Office Visit [facility] [address] [place] [address] Dale Shahid MD [facility], [address] [place] [address] documented as of this encounter Procedures Procedure Name Priority Date/Time Associated Diagnosis Comments CULTURE STREP A Routine 02/27/2023 8:11 AM PROVIDER ENGAGEMENT EXECUTIVE Sore throat documented in this encounter Results * CULTURE STREP A (02/27/2023 8:11 AM PROVIDER ENGAGEMENT EXECUTIVE) SPEC DESCRIPTION THROAT 02/27/2023 1:03 PM PROVIDER ENGAGEMENT EXECUTIVE [facility] SPECIAL REQUESTS NO SPECIAL REQUEST 02/27/2023 1:03 PM PROVIDER ENGAGEMENT EXECUTIVE [facility] CULTURE RESULT NO STREPTOCOCCUS PYOGENES (GROUP A) ISOLATED 03/01/2023 7:02 AM PROVIDER ENGAGEMENT EXECUTIVE [facility] THROAT SWAB / Unknown 02/27/2023 8:11 AM PROVIDER ENGAGEMENT EXECUTIVE 02/27/2023 1:09 PM PROVIDER ENGAGEMENT EXECUTIVE Mahnaz RÍOS MICROBIOLOGY - GENERAL ORDER AUGUSTIN Final Result Performing Organization Address City/State/[facility] Co de Phone Number [facility] [address] [facility] [place] [address], [place] [phone] [facility] [address] [place] [address], [place] [phone] documented in this encounter Visit Diagnoses Diagnosis Sore throat Acute pharyngitis documented in this encounter Additional Health Concerns Assessment Noted Time PHQ-9 Depression Total Score: 0 12/14/19 21 9:36 AM CDT documented as of this encounter Care Teams Software Developer Consultant Relationship Specialty Start [place] [address] [address], [address] [place] [address] PCP - General Nurse Practitioner Family 07/20/2206/13 documented as of this encounter
--- OUTSIDE RECORDS SUMMARY | 2024-04-11 05:34 | XMS_ITS | Encounter Summary ---
Author Organization [facility] Address [address] [place] [address]. [place], [place] [address] [place] [address] Care Team Providers Care Line Inspector Name Role Phone Amado Mathew Primary Care Provider [phone] Reason for Referral * Surgical (Routine) - Authorized Specialty Diagnoses / Procedures Referred By Emiliano gomez Referred To Contact Diagnoses Trigger finger, right middle finger Procedures OFFICE/OUTPATIENT NEW LOW MDM 30-44 MINUTES OFFICE/OUTPT VISIT,NEW,LEVL IV OFFICE/OUTPT VISIT,NEW,LEVL V OFFICE/OUTPT VISIT,EST,LEVL III OFFICE/OUTPT VISIT,EST,LEVL IV OFFICE/OUTPT VISIT,[place] [address] [place] [address] Phone: tel: fax: Jose Hackett NP [address] [place] [address] Phone: tel: fax: Referral ID Status Reason Start Date Expiration Date V isits Requested Visits Authorized [id number] Authorized 10/28/2023 11/26/2024 99 99 Reason for Visit * Reason Comments DME Orders (SCAN) Pt needing to discus s new CPAP machine to be ordered Diabetes Follow up on A1C Encounter Details Date Type Department Care Team (Late st Contact Info) Description 10/28/2023 9:20 AM CDT Office Visit [facility] Family & Internal Medicine [facility] [address] [place] [address] [place] [address] [place] [address] DME Orders (SCAN) (Pt needing to discuss new CPAP machine to be ordered); Diabetes (Follow up on A1C) Social History Tobacco Use Types Packs/Day Years Used Date Smoking Tobacco: Never Passive Smoke Exposure: Past Smokeless Tobacco: Never Tobacco Cessation:Counseling Given: No 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 Alcohol Use Standard Drinks/Week Comments Not Currently [...] CDT Gender Identity Male 06/12/2021 5:16 AM ORTHOTIST Sexual Orientation Straight 06/28/2021 10 :21 AM CDT documented as of this encounter Last Filed Vital Signs Vital Sign Reading Time Taken Comments Blood Pressure 128/86 10/28/2023 9:09 AM CDT Pulse 68 10/28/2023 9:09 AM CDT Temperature 36.6 ??C (97.9 ??F) 10/28/2023 9:09 AM CD T Respiratory Rate 16 10/28/2023 9:09 AM CDT Oxygen Saturation 99% 10/28/2023 9:09 AM CDT Inhaled Oxygen Concentration - - Weight 122.9 kg (271 lb) 10/28/2023 9:09 AM CDT Height 182.9 cm (6') 10/28/2023 9:09 AM CDT Body Mass Index 36.75 10/28/2023 9:09 AM CDT documented in this encounter Patient Instructions * Patient Instructions* KHUSHBU Chang - 10/28/2023 9:20 AM CDT [facility] [place], [place] [phone] documented in this encounter Progress Notes * KHUSHBU Chang - 10/28/2023 9:20 AM CDT Reason for Visit: DME Orders (SCAN) (Pt needing to discuss new CPAP machine to be ordered) and Diabetes (Follow up onA1C) History of Present Illness: 68-year-old male here for 3-month follow-up for prediabetes. He has been doing diet and exercise have lost a few pounds since last appointment. Hemoglobin A1c in July was 6.5, today it is 5.9 so he has improved a lot. Also complains of right middle finger triggering has been doing it for months. Complains of pain along the palmar surface when it triggers. He can bend it but cannot straighten back out without having to manually force it open. Patient also states that his CPAP machine is going bad. It is over 5 years old and is making a loudnoise from the motor. This is disrupting his sleep at night as well as his 's. Diabetes ROS: Review of Systems All other systems reviewed and are negative. 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) Smokeless tobacco: Never Vaping Use Vaping status: Never Used Substance and Sexual Activity Alcohol use: Not Currently Comment: occasional glass of wine Drug use: No Other Topics Concern Caffeine Concern No Special Diet No Exercise Yes Social History Narrative Lives at home with Social Determinants of Health Financial Resource Strain: Low Risk (10/30/2022) Received from [facility] Overall Financial Resource Strain (CARDIA) Difficulty of Paying Living Expenses: Not hard at all Food Insecurity: No Food Insecurity (10/30/2022) Received from [facility] Hunger Vital Sign Worried About Running Out of Food in the Last Year: Never true Ran Out of Food in the Last Year: Never true Transportation Needs: No Transportation Needs (11/16/2022) Received from [facility] OASIS A1250: Transportation Lack of Transportation (Medical): No Lack of Transportation (Non-Medical): No Patient Unable or Declines to Respond: No Stress: No Stress Concern Present (10/30/2022) Received from [facility] of Occupational Health - Occupational Stress Questionnaire Feeling of Stress : Not at all Social Connections: Feeling Socially Integrated (11/16/2022) Received from [facility] OASIS D0700: Social Isolation Frequency of experiencing loneliness or isolation: Never Housing Stability: Low Risk (10/30/2022) Received from [facility] Housing Stability Vital Sign Unable to Pay for Housing in the Last Year: No Number of Places Lived in the Last Year: 1 In the last 12 months, was there a time when you did not have a steady place to sleep or slept in [place] (including now)?: No E-Cigarettes Questions Responses E-Cigarette Use Never [...] (Not Specified) No partnership data on file Physical Exam Vitals reviewed. Constitutional: Appearance: Normal appearance. HENT: Right Ear: Tympanic membrane normal. Left Ear: Tympanic membrane normal. Nose: Nose normal. Mouth/Throat: Mucous membranes are moist. Oropharynx is clear. Eyes: Pupils: Pupils are equal, round, and reactive to light. Cardiovascular: Rate and Rhythm: Normal rate and regular rhythm. Pulses: Normal pulses. Heart sounds: Normal heart sounds. No murmur heard. No gallop. Pulmonary: Effort: Pulmonary effort is normal. No respiratory distress. Breath sounds: Normal breath sounds. No wheezing or rales. Musculoskeletal: Cervical back: Normal range of motion. Skin: General: Skin is warm and dry. Capillary Refill: Capillary refill takes less than 2 seconds. Neurological: Mental Status: He is alert. Psychiatric: Mood and Affect: Mood normal. Behavior: Behavior normal. Thought Content: Thought content normal. Judgment: Judgment normal. Filed Vitals: 10/28/23 0909 BP: 128/86 Pulse: 68 Resp: 16 Temp: 97.9 ??F (36.6 ??C) TempSrc: Core SpO2: 99% Weight: 122.9 kg (271 lb) Height: 1.829 m (6') Results for orders placed or performed in visit on 10/28/23 A1C (BACK OFFICE) Result Value Ref Range HGB A1C 5.9 % Diagnoses/Impression: 1. Blood glucose elevated A1C (BACK OFFICE) COLLECT.CAPILLARY (FNGR,HEEL,EAR) 2. Obstructive sleep apnea 3. Trigger finger, right middle finger Ambulatory referral to Hand Surgery 4. Vitamin D deficiency VITAMIN D, 25 OH 5. Prostate cancer screening PROSTATE SPECIFIC ANTIGEN,SCREENING 6. Prediabetes HEMOGLOBIN, GLYCOSYLATED COMPREHENSIVE METABOLIC PANEL 7. Hypertension, unspecified type CBC W/DIFF AUTOMATED 8. Other specified hypothyroidism THYROXINE, FREE (FT4) THYROID STIM HORMONE TSH Recommendations and Plan: Obstructive sleep apnea: CPAP machine over 5 years old, needs a new machine due to it failing. Continue diet and exercise follow-up hemoglobin A1c in 3 months Orders Placed This Encounter COLLECT.CAPILLARY (FNGR,HEEL,EAR) A1C (BACK OFFICE) PROSTATE SPECIFIC ANTIGEN,SCREENING HEMOGLOBIN, GLYCOSYLATED THYROXINE, FREE (FT4) COMPREHENSIVE METABOLIC PANEL CBC W/DIFF AUTOMATED VITAMIN D, 25 OH THYROID STIM HORMONE TSH Ambulatory referral to Hand Surgery amoxicillin (AMOXIL) 500 MG capsule Reviewed and updated this visit by provider: KHUSHBU CHANG Referring Provider: No ref. provider found PCP: KHUSHBU CHANG documented in this encounter Plan of Treatment Upcoming Encounters Date Type Department Care Team (Late st Contact Info) Description 08/05/2024 10:00 AM CDT Office Visit [facility] Group Family & Internal Medicine [address] [address] Amado Mathew PA [address] [place] [address] 02/15/2025 10:45 AM ORTHOTIST Office Visit [facility] [address] [place] [address] Dale Shahid MD [facility], [address] [place] [address] Scheduled Referrals Name Type Priority Associated Diagnoses Orde r Schedule Ambulatory referral to Hand Surgery Referral Routine Trigger finger, right middle finger Ordered: 10/28/2023 documented as of this encounter Procedures Procedure Name Priority Date/Time Associated Diagnosis Comments COLLECT.CAPILLARY (FNGR,HEEL,EAR) Routine 10/28/2023 9:11 AM CDT Blood glucose elevated HEMOGLOBIN, GLYCOSYLATED Routine 10/28/2023 Blood glucose elevated documented in this encounter Results * (ABNORMAL) THYROID STIM HORMONE TSH (01/27/2024 8:03 AM CDT) TSH 0.336(L) 0.358 - 3.74 uIU/ML 01/27/2024 10:00 AM CDT [facility] Comment: HIGH DOSES OF BIOTIN MAY INTERFERE WITH THIS TEST RESULT. CORRELATION TO CLINICAL HISTORY AND PRESENTATION RECOMMENDED. 01/27/2024 8:03 AM CDT Amado R[facility] Final Result [facility] [address] [place] [address], * VITAMIN D, 25 OH (01/27/2024 8:03 AM CDT) VITAMIN D 25 HYDROXY S/P/B 53 30 - 100 NG/ML 01/27/2024 9:46 AM CDT [facility] Comment: ? INTERPRETATION ? DEFICIENT ??<20 ? INSUFFICIENT 20-29 ?SUFFICIENT 30-100 01/27/2024 8:03 AM CDT Amado [facility] Final Result [facility] [address] [place] [address], * (ABNORMAL) CBC W/DIFF AUTOMATED (01/27/2024 8:03 AM CDT) WBC 3.92(L) 4.4 - 11.0 x10'3/uL 01/27/2024 9:29 AM CDT [facility] RBC 4.63 4.50 - 5.90 x10'6/uL 01/27/2024 9:29 AM CDT [facility] HGB 14.2 14.0 - 17.5 G/DL 01/27/2024 9:29 AM CDT [facility] HCT 41.9 41.5 - 50.4 % 01/27/2024 9:29 AM CDT [facility] MCV 90.5 80.0 - 96.0 FL 01/27/2024 9:29 AM CDT [facility] MCH 30.7 26.5 - 31.4 PG 01/27/2024 9:29 AM CDT [facility] MCHC 33.9 31.9 - 34.8 G/DL 01/27/2024 9:29 AM CDT [facility] RDW 13.9 12.3 - 14.3 % 01/27/2024 9:29 AM CDT [facility] PLT 236 151 - 353 x10'3/uL 01/27/2024 9:29 AM CDT [facility] MPV 9.0(L) 9.7 - 11.9 FL 01/27/2024 9:29 AM CDT [facility] RBC MORPHOLOGY NORMAL 01/27/2024 9:29 AM CDT [facility] PLT MORPH. NORMAL 01/27/2024 9:29 AM CDT [facility] WBC MORPHOLOGY NORMAL 01/27/2024 9:29 AM CDT [facility] LYMPHOCYTES % 20.2 15.8 - 45.0 % 01/27/2024 9:29 AM CDT [facility] NEUTROPHILS % 61.6 42.1 - 71.9 % 01/27/2024 9:29 AM CDT [facility] MONOCYTES % 12.8(H) 5.7 - 12.5 % 01/27/2024 9:29 AM CDT [facility] EOSINOPHILS 4.1 0.0 - 5.6 % 01/27/2024 9:29 AM CDT [facility] BASOPHILS 0.8 0.0 - 1.3 % 01/27/2024 9:29 AM CDT [facility] ABS. NEUTROPHILS 2.42 1.40 - 6.00 x10'3/uL 01/27/2024 9:29 AM CDT [facility] IMMATURE GRANS % 0.5 0.0 - 0.5 % 01/27/2024 9:29 AM CDT [facility] ABS. LYMPHOCYTES 0.79(L) 0.80 - 4.70 x10'3/uL 01/27/2024 9:29 AM CDT [facility] 01/27/2024 8:03 AM CDT Amado [facility] Final Result [facility] [address] [facility] [place] [address], * (ABNORMAL) COMPREHENSIVE METABOLIC PANEL (01/27/2024 8:03 AM CDT) GLUCOSE 131(H) 70 - 99 MG/DL 01/27/2024 10:00 AM CDT [facility] BUN 27(H) 7 - 18 MG/DL 01/27/2024 10:00 AM T [facility] CREATININE S/P/B 1.19 0.7 - 1.3 MG/DL 01/27/2024 10:00 AM T [facility] SODIUM S/P/B 140 136 - 145 MMOL/L 01/27/2024 10:00 AM CDT [facility] POTASSIUM S/P/B 4.5 3.5 - 5.1 MMOL/L 01/27/2024 10:00 AM T [facility] CHLORIDE S/P/B 105 100 - 108 MMOL/L 01/27/2024 10:00 AM T [facility] CO2 27.1 21 - 32 MMOL/L 01/27/2024 10:00 AM T [facility] CALCIUM S/P/B 9.0 8.5 - 10.1 MG/DL 01/27/2024 10:00 AM T [facility] BILIRUBIN TOTAL S/P/B 1.2 0.2 - 1.2 MG/DL 01/27/2024 10:00 AM T [facility] TOTAL PROTEIN S/P/B 7.0 6.4 - 8.2 G/DL 01/27/2024 10:00 AM T [facility] ALBUMIN S/P/B 3.7 3.4 - 5.0 G/DL 01/27/2024 10:00 AM T [facility] AST 22 15 - 37 U/L 01/27/2024 10:00 AM T [facility] ALT 43 16 - 60 U/L 01/27/2024 10:00 AM T [facility] ALKALINE PHOSPHATASE S/P/B 81 50 - 136 U/L 01/27/2024 10:00 AM T [facility] ANION GAP 7.9 5 - 15 MMOL/L 01/27/2024 10:00 AM [facility] BUN CREATININE RATIO 22.7 6 - 26 01/27/2024 10:00 AM [facility] A/G RATIO 1.1 1.0 - 2.0 RATIO 01/27/2024 10:00 AM [facility] GFR ESTIMATE 66(L) >90 ML/MIN/1.7 3 M2 01/27/2024 10:00 AM T [facility] Comment: NOTE: eGFR is not calculated for patients <18 years of age. This is an estimated GFR calculation using the new CKD EPI creatinine equation without race and so does not require a correction factor for race. This estimated GFR should not be used for calculating drug doses. 01/27/2024 8:03 AM CDT us Amado [facility] Final Result [facility] [address] [place] [address], * THYROXINE, FREE (FT4) (01/27/2024 8:03 AM CDT) FREE T4 1.22 0.76 - 1.46 NG/DL 01/27/2024 10:00 AM T [facility] 01/27/2024 8:03 AM CDT us Amado [facility] Final Result [facility] [address] [place] [address], [place] [phone] * (ABNORMAL) HEMOGLOBIN, GLYCOSYLATED (01/27/2024 8:03 AM CDT) HGB A1C 6.1(H) <5.7 % 01/27/2024 9:46 AM CDT [facility] Comment: INCREASED RISK OF DIABETES <5.7% ?NON-DIABETES 5.7-6.4% INCREASED RISK FOR FUTURE DIABETES > OR = 6.5 CONSISTENT WITH DIABETES STANDARDS OF MEDICAL CARE IN DIABETES-2010 DIABETES CARE, 33(SUPP 1): S1-S61,2010 ESTIMATED AVG GLUCOSE 128 mg/dL 01/27/2024 9:46 AM CDT [facility] 01/27/2024 8:03 AM CDT us Amado [facility] Final Result Performing Organization Address [facility] de Phone Number [facility] [address] [place] [address], [place] [phone] * PROSTATE SPECIFIC ANTIGEN,SCREENING (01/27/2024 8:03 AM CDT) PSA 2.69 <4.00 NG/ML 01/27/2024 9:46 AM CDT [facility] Comment: Test was performed using the Siemens method. ??Results obtained with other assay methods or kits cannot be used interchangeably with results obtained by the Siemens method. 01/27/2024 8:03 AM CDT us Amado [facility] Final Result [facility] [address] [facility] [place] [address], * A1C (BACK OFFICE) (10/28/2023) HGB A1C 5.9 % [id number] T [facility] 10/28/2023 Amado [facility] Final Result Performing Organization Address [facility] Co de Phone Number [phone] [facility] [address] [facility] [place] [place] [address], documented in this encounter Visit Diagnoses Diagnosis Blood glucose elevated- Primary Other abnormal glucose Obstructive sleep apnea Obstructive sleep apnea (adult) (pediatric) Trigger finger, right middle finger Vitamin D deficiency Unspecified vitamin D deficiency Prostate cancer screening Special screening for malignant neoplasm of prostate Prediabetes Other abnormal glucose Hypertension, unspecified type Other specified hypothyroidism documented in this encounter Additional Health Concerns Assessment Noted Time PHQ-9 Depression Total Score: 0 12/14/19 21 9:36 AM CDT documented as of this encounter Care Teams Line Inspector Relationship Specialty [place] [address] [address] [address] PCP - General Physician Water Safety Teacher Medical 06/25/23 documented as of this encounter
--- OUTSIDE RECORDS SUMMARY | 2024-04-11 05:34 | XMS_ITS | Encounter Summary ---
Author Organization [facility] Address [address] [place] [address]. [place], [place] [address] [place] [address] Care Team Providers Care Field Sales Specialist Name Role Phone Amado Mathew Primary Care Provider Reason for Visit * Auth/Cert (Routine) Specialty Diagnoses / Procedures Referred By Emiliano gomez Referred To Contact Diagnoses Trigger middle finger of right hand right middle finger trigger M65.331 Procedures INCISE FINGER TENDON SHEATH right middle finger open trigger release Marleen Carlos MD [address] [place] [address] Phone: tel: fax: Referral ID Status Reason Start Date Expiration Date Visits Re quested Visits Authorized [id number] 1 1 Encounter Details Date Type Department Care Team (Latest Contact Info) Description 01/17/2024 9:07 AM CDT - 01/17/2024 1:15 PM T Hospital Encounter 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 * Trigger Finger Release Discharge Instructions ([place] Islander) * General Anesthesia Discharge Instructions ([place] Island[place]) * Tramadol, ADULT ([place] Island[place]) documented in this encounter Medications at Time [...] 08/06/2023 4 traMADol (ULTRAM) 50 MG tabletIndications:Ac davide Pain < 7 Day Supply Take 1 tablet (50 mg total) by mouth every 6 (six) hours as needed for Pain. Indications: Acute Pain < 7 Day Supply 22 tablet 01/17/2024 documented as of this encounter H&P Notes * Marleen Carlos MD - 01/17/2024 10:10 AM CDT HISTORY AND PHYSICAL INTERVAL NOTE: I have reviewed Radha Zhang History & Physical which was performed within the past 30 days. After examining Radha Zhang, no change has occurred in the patient's condition since the H&P was completed. Informed Consent Discussion: Potential benefits, risks, and side effects of the patient's procedure/surgery; the likelihood of the patient achieving his or her goals; and any potential problems that might occur during recuperation were discussed with the patient/family/personal charter representative. Reasonable alternatives to the patient's proposed procedure/surgery including benefits, risks, and side effects related to the alternatives and the risks related to not receiving the proposed care were also discussed with the patient/family/personal charter representative. Questions were answered and the patient/family/personal charter representative verbalized understanding and desires to proceed. 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 This includes belt-ji-xcig and ezs-sapd-cq-face time I provided on the day of [...] 12:12 PM CDT SURGEON: MARLEEN CARLOS MD GREIGE GOODS EXAMINER: Circulating Nurse 1: Sahara Esteves RN Circulating Nurse 2: Johanna Collazo RN Scrub Person 1: Otilia Ann, WOMEN SPECIALIST PREOPERATIVE DIAGNOSIS: right middle finger trigger M65.331 [...] cast and retractor throughout the entire procedure. Camila retractors were then used to very gently [...] was minimized during this procedure as the client account assistant facilitated performance of the procedure throughout the entire case. * Brief Op Note - Marleen Carlos MD - 01/17/2024 12:[address] [facility] Brief Op HSrig middle finger open trigger release Procedure Note Radha Cedeño Leatha 01/17/2024 1440 Procedure(s) (LRB): right middle finger open trigger release (Right) Surgeon(s): Marleen Carlos MD Laundry Routeman: None Anesthesia: General Pre-Op Diagnosis: right middle [...] tolerance in past 6 months. Patient sees claims assistant Dr. Shahid and previous cardiac testing copied. [...] Avg BP? 120/80's Do you have a claims assistant? Dr. Shahid documented in this encounter Plan of Treatment Upcoming Encounters Date Type Department Care Team (Late st Contact Info) Description 08/05/2024 10:00 AM CDT Office Visit [facility] Family & Internal Medicine [address] [address] Amado Mathew PA [address] [place] [address] 02/15/2025 10:45 AM SUCCESS COACH Office Visit [place] [facility] [address] [place] [address] Dale Shahid MD [facility], [address] [place] [address] documented as of this encounter Procedures Procedure [...] Given 01/17/2024 10:23 AM CDT 975 mg famotidine (PEPCID) tablet 20 mg 20 mg, [...] hours., Pre-Op 1023 (Given - Provid er: aTmiko Mchugh RN) ceFAZolin (ANCEF) 3 g in sodium chloride 0.9 % 100 mL IVPB (COMPLETED) 3 g, Intravenous, at 400 mL/hr, call or contact centre manager, 1 dose, On Sat01/17/24 at 0930, Give [...] documented as of this encounter Care Teams Field Sales Specialist Relationship Specialty [place] [address] [place] [address] PCP - General Physician Laundry Routeman Medical 06/25/23 documented as of this encounter
--- OUTSIDE RECORDS SUMMARY | 2024-04-11 05:34 | XMS_ITS | Encounter Summary ---
Author Organization [facility] Address [address] [place] [address]. [place] [address] [place] [address] Care Team Providers Care Belt Repairer Name Role Phone Kacey Lafleur SWITCH REPAIRER Primary Care Provider [phone] Reason for Visit * Reason Comments COVID-19 Positive home test t zuleika Encounter Details Date Type Department Care Team (Late st Contact Info) Description 02/28/2023 9:20 AM LINE ASSEMBLER Office Visit [facility] Family & Internal Medicine [facility] [address] [place] [address] [place] [address] [facility] [address] [place], [place] [id number] Mahnaz Dey, KHUSHBU [address] [place], [place] [id number] COVID-19 (Positive home test today) Social History Tobacco Use Types Packs/Day Years Used Date Smoking Tobacco: Never Passive Smoke Exposure: Past Smokeless Tobacco: Never Tobacco Cessation:Counseling Given: No 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 Alcohol Use Standard Drinks/Week Comments Not Currently 0 (1 standard drink = 0.6 oz pur e alcohol) occasional glass of wine PHQ-2 Answer Date Recorded Patient Health Questionnaire-2 Score 0 08/08/2022 Sex and Gender Information Value Date Recorded Sex Assigned at Not on file Legal Sex Male 7:33 PM CDT Gender Identity Male 06/12/2021 5:16 AM LINE ASSEMBLER Sexual Orientation Straight 06/28/2021 10 :21 AM CDT documented as of this encounter Last Filed Vital Signs Vital Sign Reading Time Taken Comments Blood Pressure 137/83 02/28/2023 8:55 AM LINE ASSEMBLER Pulse 76 02/28/2023 8:51 AM LINE ASSEMBLER Temperature 36.7 ??C (98.1 ??F) 02/28/2023 8:51 AM CS T Respiratory Rate 14 02/28/2023 8:51 AM LINE ASSEMBLER Oxygen Saturation 96% 02/28/2023 8:51 AM LINE ASSEMBLER Inhaled Oxygen Concentration - - Weight 125.2 kg (276 lb) 02/28/2023 8:51 AM LINE ASSEMBLER Height 182.9 cm (6') 02/28/2023 8:51 AM LINE ASSEMBLER Body Mass Index 37.43 02/28/2023 8:51 AM LINE ASSEMBLER documented in this encounter Patient Instructions * Attachments The following attachments cannot be sent through Care Everywhere. * Viral Syndrome Discharge Instructions (Malawian) documented in this encounter Progress Notes * KHUSHBU Pearl - 02/28/2023 9:20 AM CST Images from the original note were not included. _ Reason for Visit: COVID-19 (Positive home test today) History of Present Illness: HPI Radha Zhang is a 67-year-old male here for patient or evaluation through the walk-in clinic for symptoms of upper respiratory infection to include nasal congestion, sore throat, and headache. Patient denies symptoms of visual disturbance or vomiting. Patient has noticed a fever. He is also noted body aches and chills patient has a slight cough with out wheezing. Patient denies shortness of breath. Patient has not had loose stools. Patient has been symptomaticfor 2-3 days and is not improving with symptoms. ROS: [...] Outpatient Medications Marked as Taking for the 02/28/23 encounter (Office Visit) with KHUSHBU Pearl Medication Sig Dispense Refill ASPIRIN EC 81 MG tablet Take 1 tablet (81 mg total) by mouth daily. atorvastatin (LIPITOR) 80 MG tablet Take 1 tablet (80 mg total) by mouth nightly at bedtime. 90 tablet 3 carvedilol (COREG) 3.125 MG tablet TAKE 1 TABLET BY MOUTH TWICE A DAY 180 tablet 1 Coenzyme Q10 (COQ10) 100 MG Cap Take by mouth daily. doxycycline hyclate (VIBRAMYCIN) 100 MG capsule Take 1 capsule (100 mg total) by mouth 2 (two) times daily for 10 days. 20 capsule 0 ezetimibe (ZETIA) 10 MG tablet TAKE 1 TABLET BY MOUTH EVERY DAY 90 tablet 1 levothyroxine (SYNTHROID) 125 MCG tablet TAKE 1 TABLET BY MOUTH EVERY MORNING 90 tablet 0 melatonin 5 MG tablet meloxicam (MOBIC) 15 MG tablet Take 1 tablet (15 mg total) by mouth daily. Multiple Vitamins-Minerals (CENTRUM SILVER) Tab Take 1 tablet by mouth daily. nirmatrelvir & ritonavir 150/100 (PAXLOVID) 10 x 150 MG & 10 x 100MG tablet pack Take ONE nirmatrelvir 150 mg tablet with ONE ritonavir 100 mg tablet, with both tablets taken together, twice daily for 5 days. May take with or without food. Swallow tablets whole. 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 Patient appears well-developed and well-nourished. Obese HENT: Right Ear: External ear normal. Left Ear: External ear normal. TMs do reveal air-fluid levels Head: Normocephalic. Frontal sinus tenderness Nose: Nose [...] has no rales. Patient exhibits no tenderness. There is loose rhonchi heard scattered does not appear to be acute distress Abdominal: Patient exhibits no distension and no [...] content normal. No data to display Vitals: 02/28/23 0851 02/28/23 0855 BP: (!) 150/88 137/83 Pulse: 76 Body mass index is 37.43 kg/m??. Assessment and Plan Encounter Diagnose(s) ICD-10-CM SNOMED CT(R) 1. Suspected COVID-19 virus infection Z20.822 SUSPECTED COVID-19 CORONAVIRUS (COVID-19) INFLUENZA A& B ANTIGEN IA PANEL 2. COVID U07.1 COVID-19 nirmatrelvir & ritonavir 150/100 (PAXLOVID) 10 x 150 MG & 10 x 100MG tablet pack COVID - If you have possible or confirmed COVID-19: 1. Stay home from work, school and away from other public places and quarantine for 5 days from thestart of symptoms. Wear a mask for an additional 5 days after the quarantine is complete. If you must go out avoid using any kind of public transportation, ridesharing, or taxis. 2. Monitor you symptoms. If you symptoms get worse, call your healthcare provider 3. Get rest and stay hydrated 4. Wash your hands often with soap and water for at least 20 seconds or clean your hands with an alcohol based hand record label internship that contains a least 60% alcohol. 5. As much as possible, stay in a specific room and away from other people in your home. Also, you should use a separate bathroom if available 6. Avoid sharing personal items with other people in your household, like dishes, towels, and bedding. 7. Clean all surfaces that are touched often, like counters, tabletops, and doorknobs. Use household cleaning sprays or wipes according to the label instructions 8. Do not handle pets or other animals while sick. For information go to www.cdc.gov/COVID19 Discussed in detail the risk and benefit of Paxlovid to fight the covid infection. Patient is awarethat the medication is hard on the kidneys and could cause damage. Also discussed if patient on a statin that it needs to be stopped immediatlely and not to resume usage for 10 days. Patient understands and still wants to take Paxlovid. Orders Placed This Encounter nirmatrelvir & ritonavir 150/100 (PAXLOVID) 10 x 150 MG & 10 x 100MG tablet pack CORONAVIRUS (COVID-19) INFLUENZA A & B ANTIGEN IA PANEL Patient was told to push liquids and [...] Portions of this note were dictated using [employer] speech recognition software. Occasional wrong wordor sound-alike substitutions may have occurred due to the inherent limitations of voice recognition software. Please read the chart carefully and recognize, using context, where the substitutions may have occurred. Mahnaz Dey PA-C evaluated and Dr. Eliza Kennedy reviewed and agrees with plan. Cosigned by Eliza Kennedy MD at 03/09/2023 7:06 PM LINE ASSEMBLER ASSEMBLER ASSEMBLER documented in this encounter Plan of Treatment Upcoming Encounters Date Type Department Care Team (Late st Contact Info) Description 08/05/2024 10:00 AM CDT Office Visit [facility] Family & Internal Medicine - [address] [address] Aamdo Mathew PA [address] [place] [id number] 02/15/2025 10:45 AM LINE ASSEMBLER Office Visit [place] [facility] [address] [place] [address] Dale Shahid MD [facility], [address] [place] [address] documented as of this encounter Procedures Procedure Name Priority Date/Time Associated Diagnosis Comments CORONAVIRUS (COVID-19) INFLUENZA A & B ANTIGEN IA PANEL Routine 02/28/2023 Suspected COVID-19 virus infection documented in this encounter Results * (ABNORMAL) CORONAVIRUS (COVID-19) INFLUENZA A & B ANTIGEN IA PANEL (02/28/2023) CORONAVIRUS ANTIGEN IA POSITIVE(A) NEGATIVE -[address], [place] INFLUENZA A NEGATIVE NEGATIVE MG-[address], [place] INFLUENZA B NEGATIVE NEGATIVE MG-[address], [place] Internal Control: VALID VALID -[address], [place] NASAL STRUCTURE / Unknown 02/28/2023 Mahnaz RÍOS MICROBIOLOGY - GENERAL ORDER [place] Final Result Performing Organization Address City/State/[facility] Co de Phone Number -[phone], [place] [address] [place] [address], documented in this encounter Visit Diagnoses Diagnosis Suspected COVID-19 virus infection- Primary COVID documented in this encounter Additional Health Concerns Infection Onset Date Last Indicated Resolved Time COVID-19 Confirmed 02/28/2023 02/28/2023 12:32 AM LINE ASSEMBLER Assessment Noted Time PHQ-9 Depression Total Score: 0 12/14/19 21 9:36 AM CDT documented as of this encounter Care Teams Belt Repairer Relationship Specialty [place] [address] [place] [address] PCP - General Nurse Practitioner Family 07/20/2206/13 documented as of this encounter
--- OUTSIDE RECORDS SUMMARY | 2024-04-11 05:34 | XMS_ITS | Encounter Summary ---
Author Organization [facility] Address [address] [place] [address]. 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 [address] [place], [place] [phone] Dale Shahid MD [facility], [address] [place] [address] documented as of this encounter Visit Diagnoses Not on filedocumented in this encounter Additional Health Concerns Assessment Noted Time PHQ-9 Depression Total Score: 0 12/14/19 21 9:36 AM CDT documented as of this encounter Care Teams Offset Plate Maker Relationship Specialty [place] [address] [place] [address] PCP - General Physician Md Senior Research Scientist Medical 06/25/23 documented as of this encounter
--- OUTSIDE RECORDS SUMMARY | 2024-04-11 05:34 | XMS_ITS | Encounter Summary ---
Author Organization [facility] Address [address] [place] [address]. [place] [address] [place] [address] Care Team Providers Care Patient Relations Specialist Name Role Phone Kacey Lafleur HOME ADMINISTRATOR Primary Care Provider [phone] Reason for Visit * Reason Onset Date Comments Medication Information 02/05/2023 Encounter Details Date Type Department Care Team (Late st Contact Info) Description 02/05/2023 Telephone [facility] Family & Internal Medicine [facility] [address] [place] [address] [place] [address] [facility], [address] [place] [address] Medication Information Social History Tobacco Use Types Packs/Day Years [...] CDT Gender Identity Male 06/12/2021 5:16 AM 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 Would he like to try the oral or continue otc treatment? Thanks documented in this encounter Plan of Treatment Upcoming Encounters Date Type Department Care Team (Late st Contact Info) Description 08/05/2024 10:00 AM CDT Office Visit [facility] Family & Internal Medicine - [place] [address] [place] [address] [place] [address] [place] [address] 02/15/2025 10:45 AM MANAGER CIVIL Office Visit [place] [facility] [address] [place] [address] Dale Shahid MD [facility], [address] [place] [address] documented as of this encounter Visit Diagnoses Not on filedocumented in this encounter Additional Health Concerns Assessment Noted Time PHQ-9 Depression Total Score: 0 12/14/19 9:36 AM CDT documented as of this encounter Care Teams Patient Relations Specialist Relationship Specialty Start [place] [address] [facility], [facility] [address] [place] [address] PCP - General Nurse Practitioner Family 07/20/2206/13 documented as of this encounter
--- OUTSIDE RECORDS SUMMARY | 2024-04-11 05:34 | XMS_ITS | Encounter Summary ---
Author Organization [facility] Address [address] [place] [address]. [place] [address] [place] [address] Care Team Providers Care Grinder Gear Name Role Phone Amado Mathew Primary Care Provider [phone] Reason for Visit * Reason Onset Date Comments Results 03/06/2024 Encounter Details Date Type Department Care Team (Late st Contact Info) Description 03/06/2024 Telephone [facility] [place], [address] [place], [place] [id number] Dinorah Velazquez FNP [address] [facility] [address] [place], [place] [phone] Results Social History Tobacco Use Types Packs/Day Years [...] CDT Gender Identity Male 06/12/2021 5:16 AM 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 His valves are stable there is mild leakage of his aortic and mitral valve. Typically we would repeat his echo in 3 years to follow the valves unless otherwiseneeded sooner. Keep scheduled follow-up unless problems arise sooner. RAL SCIENCE TEACHER documented in this encounter Plan of Treatment Upcoming Encounters Date Type Department Care Team (Late st Contact Info) Description 08/05/2024 10:00 AM CDT Office Visit [facility] Family & Internal Medicine - [place] [id number] [place] [address] [place] [address] [place] [address] 02/15/2025 10:45 AM GENERAL SCIENCE TEACHER Office Visit [facility] [address] [place] [address] Dale Shahid MD [facility], [address] [place] [address] documented as of this encounter Visit Diagnoses Not on filedocumented in this encounter Additional Health Concerns Assessment Noted Time PHQ-9 Depression Total Score: 0 12/14/19 21 9:36 AM CDT documented as of this encounter Care Teams Grinder Gear Relationship Specialty [place] [address] [place] [address] PCP - General Physician Printing Roller Handler Medical 06/25/23 documented as of this encounter
--- OUTSIDE RECORDS SUMMARY | 2024-04-11 05:34 | XMS_ITS | Encounter Summary ---
Author Organization [facility] Address [address] [place] [address]. 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 Role Phone Amado Mathew Primary Care Provider [phone] Reason for Visit * Reason Comments Follow Up Transfer care6 month follow up Hypothyroidism Hyperlipidemia Medicare Wellness Encounter Details Date Type Department Care Team (Late st Contact Info) Description 08/06/2023 10:20 AM CDT Office Visit [facility] Family & Internal Medicine [facility] [address] [place] [address] [place] [address] [facility] [address] [place], [place] [id number] [place] [address] [place] [address] Follow Up (Transfer care/6 month follow up); Hypothyroidism; Hyperlipidemia; Medicare Wellness Social History Tobacco Use Types Packs/Day Years Used Date Smoking Tobacco: Never Passive Smoke Exposure: Past Smokeless Tobacco: Never Tobacco Cessation:Counseling Given: No 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9 cm (6') 08/06/2023 10:02 AM CDT Body Mass Index 37.7 08/06/2023 10:02 AM CDT documented in this encounter Patient Instructions * Patient Instructions* KHUSHBU Chang - 08/06/2023 10:20 AM CDT PERSONALIZED PREVENTION PLAN FOR Radha Zhang These are your preventive care screenings with due dates. Health Maintenance Topic Date Due ??? Annual Medicare Wellness Visit Never done ??? Zoster Vaccines (1 of 2) 08/09/2023 (Originally 2004) ??? RSV Immunization or 60+ Years (1 - 1-dose 60+ series) 08/05/2024 (Originally 2014) ??? COVID-19 Vaccine (4 - 2022- season) 2024 (Originally 12/14/2022) ??? Pneumococcal Vaccine: 65+ Years (1 of 2 - PCV) 07/13/2026 (Originally 1960) ??? Hepatitis C 08/08/2052 (Originally 1972) ??? Colorectal Cancer Screening Colonoscopy (10 Years) 11/29/2024 ??? DTaP, Tdap and Td Vaccines (2 - Td or Tdap) 01/07/2032 ??? Meningococcal Vaccine Aged Out ??? RSV Immunizations Under 20 Months Aged Out Recommended Covered Preventative Services Your PCP and clinical team will review the list below of recommended Medicare Part B Covered Preventative Services and follow up with you on future scheduling of any additional services Based on your responses to the Health Risk Assessment and appointment today, your provider recommends the following: ADVANCE DIRECTIVES The Basics Written by the doctors and editors at [facility] What are advance directives???--??Advance directives are legal documents that allow you to spell out ahead of time what of types medical care you would want if you ever became unable to speak for yourself. These documents can help ensure that you get the care you want even if you have an unexpectedserious illness or accident. The documents can also make things easier for the people who will need to make decisions for you if you ever become unable to make them for yourself. Are there different kinds of advance directives???--??Yes. The most useful kinds of advance directives are: Health care proxy (also called the durable power of deputy prosecuting attorney for health care) - The health care proxy document allows you to choose someone to make medical decisions for you if you become unable to speak for yourself. The benefit of having this document is that it makes your choice of a decision-maker clear to your doctors and family members. When you choose a health care proxy, it is important to talk to the person you choose about the things that you do or don't want. That way your decision-maker knows what to do later on if he or she ever has to speak for you. Living will - A living will is the document that tells health care providers what type of care you want if you become unable to speak for yourself. For instance, a living will allows you to record inwriting whether you would want a feeding tube put in if you had a serious illness or accident. Do not resuscitate/do not intubate order (also called a DNR/DNI) - If you decide you do not want your heart restarted if it stops and you do not want a breathing tube put in if you stop breathing, you can ask for a DNR/DNI. This is a form that must be signed by a doctor. It tells all your health care providers that you have decided you do not want these treatments. Advance directives work best when they are part of a team effort that includes not only the person making the decisions, but also doctors, emergency health workers, and places like hospitals and nursing homes. The Physician Orders for Life Sustaining Treatment (POLST) is a form for people who already have a serious illness or are very weak and likely to need medical help. The POLST form spells out exactly what care should be given, and not given, based on your choices and wishes. It is signed by your doctor, and you can keep a copy at home to be used in the event of an emergency. A copy is also kept onfile at any hospital or other place where you might get medical care. Not every state has a POLST program. To find out if your state has one, you can go online to www.polst.org. How do I choose a health care proxy???--??Choose someone who: You know and trust Can separate his or her own wishes from your own You know would carry out your wishes if that became necessary Could be easily reached if he or she was needed Could handle it if other family members or loved ones wanted you to get treated differently than you would want Some people choose a second person as an alternate proxy, in case their first choice cannot be reached at the time decisions need to be made. Who should have an advance directive???--??Advance directives are a good idea for anyone, but they are especially important if: You are older than 65. You have a serious life-threatening illness, such as advanced cancer, or end- stage heart or liver failure. The person whom you would like as your health care proxy (decision-maker) is not a family member orlegally to you. If that is the case the person you would choose might not be allowed to make decisions for you. Unless there is a health care proxy, the law usually states that a person's closest family member has the right to make decisions for him or her. What kinds of decisions will I need to make???--??Your advance directives can have as much or as little detail as you want. But many people who have advance directives record their wishes about the following treatments: Breathing tubes - If you stop breathing or are having a very hard time breathing, you can get attached to a machine that will help you breathe. For that to happen, you will have to be intubated. That means that a tube will be put down your throat and into your lungs. Then the tube will be connected to a breathing machine. When the tube is in place, you will not be able to talk, at least at first. Plus, you will probably be sedated, meaning that you are on medicines that make you sleep. Sometimes a breathing machine is needed only for a short time. For instance, some people need the breathing machine just while they recover from a lung infection. When deciding about a breathing tube, consider whether you would want it at all, want it only for a short time, or want it no matter what. Also, keep in mind that any time a breathing machine is used, it is hard to know for sure if and when it will be able to be disconnected. Cardiopulmonary resuscitation (CPR) - If your heart stops beating suddenly, doctors might be able to restart it by pumping on your chest, putting in a breathing tube and pushing air into your lungs, giving you an electric shock (called defibrillation ), and/or giving you special medicines. Some people recover completely after having their heart restarted. Others have permanent brain damage from a lack of blood flow to the brain; this is most likely in people who have an advanced, serious illness. Feeding tubes - If you become unable to eat, you can have a tube put into your stomach or intestines that can deliver nutrients. A feeding tube can keep a person's body going while he or she heals and gets strong. But it can also keep a person alive for a long time even if there is no chance the person will recover. Can I change my mind???--??Yes. You can change your mind at any time. If you sign an advance directive and you decide you want a different kind of treatment or you no longer want the health care proxy you chose, all you have to do is tell your doctor or nurse about your new decision. If you want toname a new health care proxy or want to record new wishes, you can draw up new documents. How can I draw up an advance directive???--??The following table lists resources that can help you learn more about making your own advance directives (table 1). All topics are updated as new evidence becomes available and our peer review process is complete. This topic retrieved from [employer] on: Apr 22, 2018. Topic 92725 Version 11.0 table 1: Resources that can help you make advance directives ?? Address Phone number Website [address] Toll-free: (202) [facility] [ ] http://assets.[email or web address].org/external_sites/ caregiving/multimedia/EG_AdvanceDirectives.html Aging with Dignity (Five Wishes form) [address] [place] [address] Toll-free: [phone] 5WISHES [ ] www.agingwithdignity.org CaringInfo ?? Toll-free: www.caringinfo.org [facility] POLST [employer] [address] [place] [address] www.Wystst.org FALL RISK Guidelines to help you prevent falls: There are several steps you can take to decrease fall risk at home. One suggestion is to remove tripping hazards like throw rugs, loose wires, clutter or other objects from the floor. Installing hand-rails for stairs and turning on night lights between the bedroom and bathroom at night are other helpful suggestions. If you have fallen in the bathroom, use of grab bars near the toilet and a shower stool or bench may help prevent a fall in this part of the home. Taking extra time when getting up from a sitting or lying position before starting to walk is especially helpful to those who have dizziness triggered by change in body position. There are also some steps that can be taken to reduce fall risk outdoors. Wearing well-fitting shoes with good traction is important when walking on either the pavement or the lawn. Avoid high heels or shoes with very thick soles, especially if you have peripheral neuropathy. If you have problems with balance or leg pain, using a cane or walker can also be helpful. Finally, be aware of possible tripping hazards outdoors including uneven pavement and slipping hazards like wet ground or pavement. PERSONALIZED PREVENTION PLAN FOR Radha Zhang These are your preventive care screenings with due dates. Health Maintenance Topic Date Due ??? Annual Medicare Wellness Visit Never done ??? Zoster Vaccines (1 of 2) 08/09/2023 (Originally 2004) ??? RSV Immunization or 60+ Years (1 - 1-dose 60+ series) 08/05/2024 (Originally 2014) ??? COVID-19 Vaccine (2022-24 season) 2024 (Originally 12/14/2022) ??? Pneumococcal Vaccine: 65+ Years (1 of 2 - PCV) 07/13/2026 (Originally 1960) ??? Hepatitis C 08/08/2052 (Originally 1972) ??? Colorectal Cancer Screening Colonoscopy (10 Years) 11/29/2024 ??? DTaP, Tdap and Td Vaccines (2 - Td or Tdap) 01/07/2032 ??? Meningococcal Vaccine Aged Out ??? RSV Immunizations Under 20 Months Aged Out Recommended Covered Preventative Services Your PCP and clinical team will review the list below of recommended Medicare Part B Covered Preventative Services and follow up with you on future scheduling of any additional services Based on your responses to the Health Risk Assessment and appointment today, your provider recommends the following: ADVANCE DIRECTIVES The Basics Written by the doctors and editors at [facility] What are advance directives???--??Advance directives are legal documents that allow you to spell out ahead of time what of types medical care you would want if you ever became unable to speak for yourself. These documents can help ensure that you get the care you want even if you have an unexpectedserious illness or accident. The documents can also make things easier for the people who will need to make decisions for you if you ever become unable to make them for yourself. Are there different kinds of advance directives???--??Yes. The most useful kinds of advance directives are: Health care proxy (also called the durable power of deputy prosecuting attorney for health care) - The health care proxy document allows you to choose someone to make medical decisions for you if you become unable to speak for yourself. The benefit of having this document is that it makes your choice of a decision-maker clear to your doctors and family members. When you choose a health care proxy, it is important to talk to the person you choose about the things that you do or don't want. That way your decision-maker knows what to do later on if he or she ever has to speak for you. Living will - A living will is the document that tells health care providers what type of care you want if you become unable to speak for yourself. For instance, a living will allows you to record inwriting whether you would want a feeding tube put in if you had a serious illness or accident. Do not resuscitate/do not intubate order (also called a DNR/DNI) - If you decide you do not want your heart restarted if it stops and you do not want a breathing tube put in if you stop breathing, you can ask for a DNR/DNI. This is a form that must be signed by a doctor. It tells all your health care providers that you have decided you do not want these treatments. Advance directives work best when they are part of a team effort that includes not only the person making the decisions, but also doctors, emergency health workers, and places like hospitals and nursing homes. The Physician Orders for Life Sustaining Treatment (POLST) is a form for people who already have a serious illness or are very weak and likely to need medical help. The POLST form spells out exactly what care should be given, and not given, based on your choices and wishes. It is signed by your doctor, and you can keep a copy at home to be used in the event of an emergency. A copy is also kept onfile at any hospital or other place where you might get medical care. Not every state has a POLST program. To find out if your state has one, you can go online to www.polst.org. How do I choose a health care proxy???--??Choose someone who: You know and trust Can separate his or her own wishes from your own You know would carry out your wishes if that became necessary Could be easily reached if he or she was needed Could handle it if other family members or loved ones wanted you to get treated differently than you would want Some people choose a second person as an alternate proxy, in case their first choice cannot be reached at the time decisions need to be made. Who should have an advance directive???--??Advance directives are a good idea for anyone, but they are especially important if: You are older than 65. You have a serious life-threatening illness, such as advanced cancer, or end- stage heart or liver failure. The person whom you would like as your health care proxy (decision-maker) is not a family member orlegally to you. If that is the case the person you would choose might not be allowed to make decisions for you. Unless there is a health care proxy, the law usually states that a person's closest family member has the right to make decisions for him or her. What kinds of decisions will I need to make???--??Your advance directives can have as much or as little detail as you want. But many people who have advance directives record their wishes about the following treatments: Breathing tubes - If you stop breathing or are having a very hard time breathing, you can get attached to a machine that will help you breathe. For that to happen, you will have to be intubated. That means that a tube will be put down your throat and into your lungs. Then the tube will be connected to a breathing machine. When the tube is in place, you will not be able to talk, at least at first. Plus, you will probably be sedated, meaning that you are on medicines that make you sleep. Sometimes a breathing machine is needed only for a short time. For instance, some people need the breathing machine just while they recover from a lung infection. When deciding about a breathing tube, consider whether you would want it at all, want it only for a short time, or want it no matter what. Also, keep in mind that any time a breathing machine is used, it is hard to know for sure if and when it will be able to be disconnected. Cardiopulmonary resuscitation (CPR) - If your heart stops beating suddenly, doctors might be able to restart it by pumping on your chest, putting in a breathing tube and pushing air into your lungs, giving you an electric shock (called defibrillation ), and/or giving you special medicines. Some people recover completely after having their heart restarted. Others have permanent brain damage from a lack of blood flow to the brain; this is most likely in people who have an advanced, serious illness. Feeding tubes - If you become unable to eat, you can have a tube put into your stomach or intestines that can deliver nutrients. A feeding tube can keep a person's body going while he or she heals and gets strong. But it can also keep a person alive for a long time even if there is no chance the person will recover. Can I change my mind???--??Yes. You can change your mind at any time. If you sign an advance directive and you decide you want a different kind of treatment or you no longer want the health care proxy you chose, all you have to do is tell your doctor or nurse about your new decision. If you want toname a new health care proxy or want to record new wishes, you can draw up new documents. How can I draw up an advance directive???--??The following table lists resources that can help you learn more about making your own advance directives (table 1). All topics are updated as new evidence becomes available and our peer review process is complete. This topic retrieved from [employer] on: Apr 22, 2018. Topic 61760 Version 11.0 table 1: Resources that can help you make advance directives ?? Address Phone number Website [facility] [address] [place] [address] Toll-free: ([phone]) [facility] [ ] http://assets.[facility].org/external_sites/ caregiving/multimedia/EG_AdvanceDirectives.html Aging with Dignity (Five Wishes form) [address] [place] [address] Toll-free: [phone] [facility] [ ] www.agingwithdignity.org CaringInfo ?? Toll-free: www.caringinfo.org [employer] [facility] POLST [employer] [address] [place] [address] www.[employer].org FALL RISK Guidelines to help you prevent falls: There are several steps you can take to decrease fall risk at home. One suggestion is to remove tripping hazards like throw rugs, loose wires, clutter or other objects from the floor. Installing hand-rails for stairs and turning on night lights between the bedroom and bathroom at night are other helpful suggestions. If you have fallen in the bathroom, use of grab bars near the toilet and a shower stool or bench may help prevent a fall in this part of the home. Taking extra time when getting up from a sitting or lying position before starting to walk is especially helpful to those who have dizziness triggered by change in body position. There are also some steps that can be taken to reduce fall risk outdoors. Wearing well-fitting shoes with good traction is important when walking on either the pavement or the lawn. Avoid high heels or shoes with very thick soles, especially if you have peripheral neuropathy. If you have problems with balance or leg pain, using a cane or walker can also be helpful. Finally, be aware of possible tripping hazards outdoors including uneven pavement and slipping hazards like wet ground or pavement. documented in this encounter Progress Notes * KHUSHBU Chang - 08/06/2023 10:20 AM CDT Medicare Annual Wellness Visit Chief Complaint: Radha is an 67-year-old male here for an annual wellness visit. 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 Not at all During the past 4 weeks, has your physical and emotional health limited your social activities withfamily friends, neighbors or groups? Not at all During the past 4 weeks, how much bodily pain have you generally had? Very mild pain During the past 4 weeks, was someone able to help you if you needed and wanted help? Yes, as much as I wanted During the past 4 weeks, what was the hardest physical activity you could do for atleast 2 minutes?Moderate Can you get places out of walking distance without help? Yes Can you shop for groceries or clothes without help? Yes Can you prepare your own meals? Yes Can you do your own housework without help? Yes Can you handle your own money without help? Yes Do you need help eating, bathing, dressing, or getting around your home? No During the past 4 weeks, how would you rate your general health? Excellent How have things been going for you during the past 4 weeks? Pretty well Are you having difficulties driving your car? No Do you always fasten your seatbeat when you are in a car? Yes Fall or dizzy when standing up Never Sexual problems Never Trouble eating well Never Teeth or dentures Never Problems using the telephone Never Tired or fatigued Never Do you currently smoke? No During the past 4 weeks, how many drinks of wine, beer or other alcoholic bevearges did you have? 1drink or less per week Do you exercise for about 20 minutes 3 or more days a week? Yes, most of the time How often do you have trouble taking medicines the way you have been told to take them? I always take them as prescribed How confident are you that you can control and manage most of your health problems? Very confident In the past 6 months, have you experienced leaking of urine? No Does the patient live alone? No Does the patient have throw rugs in their home? Yes Does the patient's home have poor lighting? No Does the patient have grab bars in their bathroom? No Does the patient have handrails on stairs and steps in their home? Yes Does the patient's home have functioning smoke alarms? Yes FALL RISK Fall Risk One or more falls in the last year:: No Feels unsteady when walking:: No Worried about falling:: No MINI-COG 08/06/2023 10:16 AM 08/06/2023 10:19 AM Mini-Cog 3 word recall 3 3 Clock Draw 2 Total Score = Word Recall Score + Clock Draw score 5 PHQ2/PHQ9 08/22/2020 8:08 AM 12/13/2020 9:36 AM 10/31/2021 9:37 AM 08/08/2022 11:15 AM 08/06/2023 10:12 AM PHQ2/PHQ 9 DEPRESSION SCREEN QUESTIONAIRE Little interest or pleasure in doing things Not at all Not at all Feeling down, depressed, or hopeless Not at all Not at all Patient Health Questionnaire-2 Score 0 0 LITTLE INTEREST OR PLEASURE IN DOING THINGS 0-Not at All 0-Not at All 0-Not at All FEELING DOWN, DEPRESSSED,OR HOPELESS 0-Not at All 0-Not at All 0-Not at All PHQ2 DEPRESSION TOTAL SCORE 0 0 0 DEPRESSION SCREENING TOTAL SCORE 0 IF YOU CHECKED OFF ANY PROBLEMS Not difficult at all SUBSTANCE USE SCREENING 08/06/2023 10:15 AM Audit C+2 Screening Q1: How often do you have a drink containing alcohol? 2-4 pr month Q2: How many drinks containing alcohol do you have on a typical day when you are drinking? 1 or 2 Q3: How often do you have six or more drinks on one occasion? Pt Declined How often have you used marijuana? 0 How often have you used an illegal drug or a prescription medication for non- medical reasons? For example, used for the feeling or experience it caused. 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 Indications: FOR DENTAL USE ONLY ASPIRIN EC 81 MG tablet Take 1 tablet (81 mg total) by mouth daily. atorvastatin (LIPITOR) 80 MG tablet Take 1 tablet (80 mg total) by mouth nightly at bedtime. 90 tablet 3 carvedilol (COREG) 3.125 MG tablet TAKE 1 TABLET BY MOUTH TWICE A DAY 180 tablet 3 Coenzyme Q10 (COQ10) 100 MG Cap Take by mouth daily. ezetimibe (ZETIA) 10 MG tablet take 1 [...] 1 tablet (3,000 Units total) by mouthdaily. No current facility-administered medications for this visit. EXAM Filed Vitals: 08/06/23 1002 BP: 130/89 Pulse: 70 Resp: 16 Temp: 97.9 ??F (36.6 ??C) TempSrc: Core SpO2: 98% Weight: 126.1 kg (278 lb) Height: 1.829 m (6') Patient denies any problems with hearing. ASSESSMENT AND PLAN The patient's current medical problems were reviewed. The following health maintenance schedule was reviewed with the patient and provided in printed form in the after visit summary: Health Maintenance Topic Date Due Annual Medicare Wellness Visit Never done Zoster Vaccines (1 of 2) 08/09/2023 (Originally 2004) RSV Immunization or 60+ Years (1 - 1-dose 60+ series) 08/05/2024 (Originally 2014) COVID-19 Vaccine (4 - 2022-24 season) 2024 (Originally 12/14/2022) Pneumococcal Vaccine: 65+ Years (1 of 2 - PCV) 07/13/2026 (Originally 1960) Hepatitis C 08/08/2052 (Originally 1972) Colorectal Cancer Screening Colonoscopy (10 Years) 11/29/2024 DTaP, Tdap and Td Vaccines (2 - Td or Tdap) 01/07/2032 Meningococcal Vaccine Aged Out RSV Immunizations Under 20 Months Aged Out The following list of Medicare Part B Covered Preventative Services and Identified Health Risks were discussed with the patient and will be reviewed with the patient???s PCP / care team for further follow up and scheduling. Based on Radha's responses to the Health Risk Assessment, we disscussed the following risks. ADVANCE DIRECTIVE The patient was counseled and encouraged to create an Advance Directive. This will be further evaluated and addressed at a follow up visit. FALL RISK He is at risk for falling and has been provided with information to reduce the risk of falling at home as well as outside the home. I reviewed all the information above with the patient and made screening recommendations based on my findings. KHUSHBU CHANG I reviewed the patient's history, vitals from today, answers to the assessment and the services recommended by KHUSHBU CHANG. I agree with the findings and recommendations. * KHUSHBU Chang - 08/06/2023 10:20 AM CDT Reason for Visit: Follow Up (Transfer care/6 month follow up), Hypothyroidism, Hyperlipidemia, and Medicare Wellness Health Maintenance: Colonoscopy: utd 11/29/2014 Immunizations: utd or declined Body mass index is 37.7 kg/m??. Physical activity: walks 4 times a week for 30 minutes Dental: good Vision: good Hearing: good Metabolic screening: ordered HCV: declined PSA: No results found for: PSA HPI: 67-year-old male here for Medicare wellness visit and also follow-up on hypothyroidism and hyperlipidemia. He also has a history of prediabetes with last A1c at 5.8. He has been on the same dose of Synthroid for several years 125 mcg daily. No side effects of hyper or hypothyroidism. Denies chest pain shortness of breath or dyspnea exertion. Sees cardiology annually and he follows his lipids so would not check his fasting lipids today, however 6 months ago his fasting lipids were well within normal limits. No other acute problems today. Follow Up Hypothyroidism Hyperlipidemia Exacerbating diseases include hypothyroidism. 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 Vaping Use Vaping status: Never Used Substance and Sexual Activity Alcohol use: Not Currently Comment: occasional glass of wine Drug use: No Sexual activity: Not on file Other Topics Concern Service Not Asked Blood Transfusions Not Asked Caffeine Concern No Occupational Exposure Not Asked Hobby Hazards Not Asked Sleep Concern Not Asked Stress Concern Not Asked Weight Concern Not Asked Special Diet No Back Care Not Asked Exercise Yes Bike Helmet Not Asked Seat Belt Not Asked Self-Exams Not Asked Wheelchair Not Asked Walker Not Asked Upper extremity braces/slings Not Asked Lower extermity braces/slings Not Asked Self Care Not Asked Social History Narrative Lives at home with Social Determinants of Health Financial Resource Strain: Low Risk (10/30/2022) Received from [facility] Overall Financial Resource Strain (CARDIA) Difficulty of Paying Living Expenses: Not hard at all Food Insecurity: No Food Insecurity (10/30/2022) Received from [facility] Hunger Vital Sign Worried About Running Out of Food in the Last Year: Never true Ran Out of Food in the Last Year: Never true Transportation Needs: No Transportation Needs (11/16/2022) Received from [facility] [employer] OASIS A1250: Transportation Lack of Transportation (Medical): No Lack of Transportation (Non-Medical): No Patient Unable or Declines to Respond: No Physical Activity: Not on file Stress: No Stress Concern Present (10/30/2022) Received from [facility] [employer] of Occupational Health - Occupational Stress Questionnaire Feeling of Stress : Not at all Social Connections: Feeling Socially Integrated (11/16/2022) Received from [facility] [employer] OASIS D0700: Social Isolation Frequency of experiencing loneliness or isolation: Never Intimate Partner Violence: Not on file Housing Stability: Low Risk (10/30/2022) Received from [facility] [employer] Housing Stability Vital Sign Unable to Pay for Housing in the Last Year: No Number of Places Lived in the Last Year: 1 In the last 12 months, was there a time when you did not have a steady place to sleep or slept in ashelter (including now)?: No PHQ-9: 08/08/2022 11:15 AM 08/06/2023 10:12 AM PHQ2/PHQ 9 DEPRESSION SCREEN QUESTIONAIRE Little interest or pleasure in doing things Not at all Not at all Feeling down, depressed, or hopeless Not at all Not at all Patient Health Questionnaire-2 Score 0 0 NINA-7 (Generalized Anxiety Disorder) Screening 12/13/2020 9:40 AM 08/06/2023 10:16 AM NINA-7 Feeling nervous, anxious, or on edge 0 Not being able to stop or control worrying 0 Worrying too much about different things 0 Trouble relaxing 0 Being so restless that it is hard to sit still 0 Becoming easily annoyed or irritable 0 Feeling afraid as if something awful might happen 0 NINA-7 Total Score 0 How difficult have these problems made it for you to do your work, take care of things at home, or get along with other people? Not difficult at all Feeling nervous, anxious and on edge 0 - not at all Not being able to stop or control worrying 0 - not at all Worrying too much about different things 0 - not at all Trouble Relaxing 0 - not at all Being so restless that it's hard to sit still 0 - not at all Becoming easily annoyed or irritable 0 - not at all Feeling afraid as if something awful might happen 0 - not at all Total Score 0 If you checked off any problems, how difficult have those problems made it for you to do your work take care of things at home or get along with other people? not difficult at all ROS: Review of Systems All other systems reviewed and are negative. Medications: Outpatient Medications Marked as Taking for the 08/06/23 encounter (Office Visit) with KHUSHBU Chang Medication Sig Dispense Refill amoxicillin (AMOXIL) 500 MG capsule Take 4 capsules (2,000 mg total) by mouth once. Indications: FOR DENTAL USE ONLY ASPIRIN EC 81 MG tablet Take 1 tablet (81 mg total) by mouth daily. atorvastatin (LIPITOR) 80 MG tablet Take 1 tablet (80 mg total) by mouth nightly at bedtime. 90 tablet 3 carvedilol (COREG) 3.125 MG tablet TAKE 1 TABLET BY MOUTH TWICE A DAY 180 tablet 3 Coenzyme Q10 (COQ10) 100 MG Cap Take by mouth daily. ezetimibe (ZETIA) 10 MG tablet take 1 [...] 1 tablet (3,000 Units total) by mouthdaily. 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 Constitutional: Appearance: Normal appearance. He is obese. HENT: Right Ear: Tympanic membrane normal. Left [...] content normal. Judgment: Judgment normal. Filed Vitals: 08/06/23 1002 BP: 130/89 Pulse: 70 Resp: 16 Temp: 97.9 ??F (36.6 ??C) TempSrc: Core SpO2: 98% Weight: 126.1 kg (278 lb) Height: 1.829 m (6') Body mass index is 37.7 kg/m??. Assessment: Encounter Diagnose(s) ICD-10-CM SNOMED CT(R) 1. History of coronary artery stent placement Z95.5 HISTORY OF PLACEMENT OF STENT FOR CORONARY ARTERY DISEASE 2. Other specified hypothyroidism E03.8 HYPOTHYROIDISM TSH W/REFLEX levothyroxine (SYNTHROID) 125 MCG tablet 3. Elevated blood pressure reading R03.0 INCREASED BLOOD PRESSURE 4. Prediabetes R73.03 PREDIABETES HEMOGLOBIN, GLYCOSYLATED COMPREHENSIVE METABOLIC PANEL 5. Routine general medical examination at a health care facility Z00.00 PATIENT ENCOUNTER STATUS Recommendations/Plans: Patient doing well. Reviewed with the patient BMI, blood pressure, diet, exercise, and encouraged healthy lifestyle choices. Screened for substance use, risk factors for STIs, diet and exercise habits, and symptoms of depression. Emphasized normal blood pressure of < 140/90 and lipid and diabetes screening for all men > 35 or for men 20-34 with risk factors. Recommended US screening for AAAfor all men 65-75 who have ever smoked. Recommended prostate screening. Colon screening starting at45. Recommended preventive immunizations according to age. Follow up in 6 months. Return to clinic with new, persistent, or worsening symptoms. Radha Zhang is in agreement to and verbalized understanding of treatment plan with no further questions at this time. KHUSHBU CHANG 08/06/2023 10:49 AM Portions of this note were dictated using [employer] speech recognition software. Occasional wrong wordor sound-alike substitutions may have occurred due to the inherent limitations of voice recognition software. Please read the chart carefully and recognize, using context, where the substitutions may have occurred. Cosigned by Dom Martin MD at 08/06/2023 7:35 PM CDT documented in this encounter Plan of Treatment Upcoming Encounters Date Type Department Care Team (Late st Contact Info) Description 08/05/2024 10:00 AM CDT Office Visit [facility] Family [facility] Internal Medicine [address] [id number] Amado Mathew PA [address] [place] [address] [phone] 02/15/2025 10:45 AM ADVERTISING REPRESENTATIVE Office Visit [facility] [address] [place] [address] Dale Shahid MD [facility], [address] [place] [address] documented as of this encounter Results * TSH W/REFLEX (08/06/2023 10:36 AM CDT) TSH 0.809 0.358 - 3.74 uIU/ML 08/06/2023 1:12 PM CDT [facility] Comment: HIGH DOSES OF BIOTIN MAY INTERFERE WITH THIS TEST RESULT. CORRELATION TO CLINICAL HISTORY AND PRESENTATION RECOMMENDED. FREE T4 NOT INDICATED 08/06/2023 10:3 6 AM CDT [facility] Final Result [facility] [address] [place] [address], * (ABNORMAL) COMPREHENSIVE METABOLIC PANEL (08/06/2023 10:36 AM CDT) GLUCOSE 105(H) 70 - 99 MG/DL 08/06/2023 1:12 PM CDT [facility] BUN 23(H) 7 - 18 MG/DL 08/06/2023 1:12 PM CDT [facility] CREATININE S/P/B 1.18 0.7 - 1.3 MG/DL 08/06/2023 1:12 PM CDT [facility] SODIUM S/P/B 140 136 - 145 MMOL/L 08/06/2023 1:12 PM CDT [facility] POTASSIUM S/P/B 4.6 3.5 - 5.1 MMOL/L 08/06/2023 1:12 PM CDT [facility] CHLORIDE S/P/B 105 100 - 108 MMOL/L 08/06/2023 1:12 PM CDT [facility] CO2 25.2 21 - 32 MMOL/L 08/06/2023 1:12 PM CDT [facility] CALCIUM S/P/B 8.7 8.5 - 10.1 MG/DL 08/06/2023 1:12 PM CDT [facility] BILIRUBIN TOTAL S/P/B 1.1 0.2 - 1.2 MG/DL 08/06/2023 1:12 PM [facility] TOTAL PROTEIN S/P/B 6.9 6.4 - 8.2 G/DL 08/06/2023 1:12 PM [facility] ALBUMIN S/P/B 4.0 3.4 - 5.0 G/DL 08/06/2023 1:12 PM [facility] AST 22 15 - 37 U/L 08/06/2023 1:12 PM [facility] ALT 44 16 - 60 U/L 08/06/2023 1:12 PM [facility] ALKALINE PHOSPHATASE S/P/B 92 50 - 136 U/L 08/06/2023 1:12 PM [facility] ANION GAP 9.8 5 - 15 MMOL/L 08/06/2023 1:12 PM [facility] BUN CREATININE RATIO 19.5 6 - 26 08/06/2023 1:12 PM [facility] A/G RATIO 1.4 1.0 - 2.0 RATIO 08/06/2023 1:12 PM [facility] GFR ESTIMATE 67(L) >90 ML/MIN/1.7 3 M2 08/06/2023 1:12 PM [facility] Comment: NOTE: eGFR is not calculated for patients <18 years of age. This is an estimated GFR calculation using the new CKD EPI creatinine equation without race and so does not require a correction factor for race. This estimated GFR should not be used for calculating drug doses. 08/06/2023 10:3 6 AM CDT [facility] Final Result [facility] [address] [place] [address], * (ABNORMAL) HEMOGLOBIN, GLYCOSYLATED (08/06/2023 10:36 AM CDT) HGB A1C 6.5(H) <5.7 % 08/06/2023 1:02 PM CDT [facility] Comment: INCREASED RISK OF DIABETES <5.7% ?NON-DIABETES 5.7-6.4% INCREASED RISK FOR FUTURE DIABETES > OR = 6.5 CONSISTENT WITH DIABETES STANDARDS OF MEDICAL CARE IN DIABETES-2010 DIABETES CARE, 33(SUPP 1): S1-S61,2010 ESTIMATED AVG GLUCOSE 140 mg/dL 08/06/2023 1:02 PM CDT [facility] 08/06/2023 10:3 6 AM CDT [facility] Final Result Performing Organization Address [facility] Co de Phone Number [facility] [address] [place] [address], documented in this encounter Visit Diagnoses Diagnosis History of coronary artery stent placement- Primary Other specified hypothyroidism Elevated blood pressure reading Elevated blood pressure reading without diagnosis of hypertension Prediabetes Other abnormal glucose Routine general medical examination at a health care facility documented in this encounter Additional Health Concerns Assessment Noted Time PHQ-9 Depression Total Score: 0 12/14/19 21 9:36 AM CDT documented as of this encounter Care Teams Postal Support Employee Relationship Specialty [place] [address] [place] [address] PCP - General Physician Before And After School Daycare Worker Medical 06/25/23 documented as of this encounter
--- OUTSIDE RECORDS SUMMARY | 2024-04-11 05:34 | XMS_ITS | Encounter Summary ---
Author Organization [facility] Address [address] [place] [address]. [place] [address] [place] [address] Care Team Providers Care Public Health Registrar Name Role Phone Amado Mathew Primary Care Provider [phone] Encounter Details Date Type Department Care Team (Latest Contact Info) Description 01/27/2024 7:50 AM CDT - 01/27/2024 11:59 PM T Hospital Encounter [facility] [address] [place] [address] [place] [address] [place], [place] [phone] Discharge Disposition: Home or Self Care (Routine [...] CDT Gender Identity Male 06/12/2021 5:16 AM PHYSICIAN UNDERWRITER Sexual Orientation Straight 06/28/2021 10 :21 AM [...] every morning. 90 tablet 1 08/06/2023 4 documented as of this encounter Plan of Treatment Upcoming Encounters Date Type Department Care Team (Late st Contact Info) Description 08/05/2024 10:00 AM CDT Office Visit [facility] Medical Group Family & Internal Medicine [facility] [address] [place] [address] Amado Mathew [place] [address] [place] [address] 02/15/2025 10:45 AM PHYSICIAN UNDERWRITER Office Visit [facility] [address] [place] [address] Dale Shahid MD [facility] [address] [place] [address] documented as of this encounter Procedures Procedure Name Priority Date/Time Associated Diagnosis Comments HEMOGLOBIN, GLYCOSYLATED Routine 01/27/2024 8:03 AM CDT Prediabetes PROSTATE SPECIFIC ANTIGEN,SCREENING Routine 01/27/2024 8:03 AM CDT Prostate cancer screening COMPREHENSIVE METABOLIC PANEL Routine 01/27/2024 8:03 AM CDT Prediabetes LIPID PANEL Routine 01/27/2024 8:03 AM CDT Dyslipidemia CBC W/DIFF AUTOMATED Routine 01/27/2024 8:03 AM CDT Hypertension, unspecified type THYROXINE, FREE (FT4) Routine 01/27/2024 8:03 AM CDT Other specified hypothyroidism THYROID STIM HORMONE TSH Routine 01/27/2024 8:03 AM CDT Other specified hypothyroidism VITAMIN D, 25 OH Routine 01/27/2024 8:03 AM CDT Vitamin D deficiency documented in this encounter Results * LIPID PANEL (01/27/2024 8:03 AM CDT) CHOLESTEROL 117 <200.0 MG/DL 01/27/2024 11:22 AM CDT [facility] TRIGLYCERIDES 48 <150 MG/DL 01/27/2024 11:22 AM CDT [facility] HDL 49 >40.0 MG/DL 01/27/2024 11:22 AM [facility] LDL (CALCULATED) 58 <100 MG/DL 01/27/20 11:22 AM [facility] NON HDL CHOLESTEROL 68 <130 MG/DL 01/26 11:22 AM [facility] CHOL/HDL RATIO 2.4 0.0 - 4.5 01/27/2024 11:22 AM [facility] VLDL CALCULATION 10 5 - 55 MG/DL 01/27/2024 11:22 AM [facility] LIPID INTERPRETATION 01/27/2024 11:22 AM [facility] Comment: [facility] REPORT RECOMMENDATIONS: ?ADULT ?CHILD ??LOW RISK: [...] ?>=130 01/27/2024 8:03 AM CDT Dinorah Velazquez SET KEY DRIVER LABORAT[facility] Final Result Performing Organization Address [facility] de Phone Number [facility] [address] [place] [address], * (ABNORMAL) THYROID STIM HORMONE TSH (01/27/2024 8:03 AM CDT) TSH 0.336(L) 0.358 - 3.74 uIU/ML 01/27/2024 10:00 AM CDT [facility] Comment: HIGH DOSES OF BIOTIN MAY INTERFERE WITH THIS TEST RESULT. CORRELATION TO CLINICAL HISTORY AND PRESENTATION RECOMMENDED. 01/27/2024 8:03 AM CDT Amado Mathew PA LABORATORY Final Result Performing Organization Address [facility] de Phone Number [facility] [address] [place] [address], [place] [phone] * VITAMIN D, 25 OH (01/27/2024 8:03 AM CDT) VITAMIN D 25 HYDROXY S/P/B 53 30 - 100 NG/ML 01/27/2024 9:46 AM CDT [facility] Comment: ? INTERPRETATION ? DEFICIENT ??<20 ? INSUFFICIENT 20-29 ?SUFFICIENT 30-100 01/27/2024 8:03 AM CDT Amado [facility] Final Result [facility] [address] [place] [address], * (ABNORMAL) CBC W/DIFF AUTOMATED (01/27/2024 8:03 AM CDT) WBC 3.92(L) 4.4 - 11.0 x10'3/uL 01/27/2024 9:29 AM CDT [facility] RBC 4.63 4.50 - 5.90 x10'6/uL 01/27/2024 9:29 AM CDT [facility] HGB 14.2 14.0 - 17.5 G/DL 01/27/2024 9:29 AM CDT [facility] HCT 41.9 41.5 - 50.4 % 01/27/2024 9:29 AM CDT [facility] MCV 90.5 80.0 - 96.0 FL 01/27/2024 9:29 AM CDT [facility] MCH 30.7 26.5 - 31.4 PG 01/27/2024 9:29 AM CDT [facility] MCHC 33.9 31.9 - 34.8 G/DL 01/27/2024 9:29 AM CDT [facility] RDW 13.9 12.3 - 14.3 % 01/27/2024 9:29 AM CDT [facility] PLT 236 151 - 353 x10'3/uL 01/27/2024 9:29 AM CDT [facility] MPV 9.0(L) 9.7 - 11.9 FL 01/27/2024 9:29 AM CDT [facility] RBC MORPHOLOGY NORMAL 01/27/2024 9:29 AM CDT [facility] PLT MORPH. NORMAL 01/27/2024 9:29 AM CDT [facility] WBC MORPHOLOGY NORMAL 01/27/2024 9:29 AM CDT [facility] LYMPHOCYTES % 20.2 15.8 - 45.0 % 01/27/2024 9:29 AM CDT [facility] NEUTROPHILS % 61.6 42.1 - 71.9 % 01/27/2024 9:29 AM CDT [facility] MONOCYTES % 12.8(H) 5.7 - 12.5 % 01/27/2024 9:29 AM CDT [facility] EOSINOPHILS 4.1 0.0 - 5.6 % 01/27/2024 9:29 AM CDT [facility] BASOPHILS 0.8 0.0 - 1.3 % 01/27/2024 9:29 AM CDT [facility] ABS. NEUTROPHILS 2.42 1.40 - 6.00 x10'3/uL 01/27/2024 9:29 AM T [facility] IMMATURE GRANS % 0.5 0.0 - 0.5 % 01/27/2024 9:29 AM T [facility] ABS. LYMPHOCYTES 0.79(L) 0.80 - 4.70 x10'3/uL 01/27/2024 9:29 AM T [facility] 01/27/2024 8:03 AM CDT us Amado [facility] Final Result [facility] [address] [place] [address], [place] [phone] * (ABNORMAL) COMPREHENSIVE METABOLIC PANEL (01/27/2024 8:03 AM CDT) [facility] GLUCOSE 131(H) 70 - 99 MG/DL 01/27/2024 10:00 AM T [facility] BUN 27(H) 7 - 18 MG/DL 01/27/2024 10:00 AM T [facility] CREATININE S/P/B 1.19 0.7 - 1.3 MG/DL 01/27/2024 10:00 AM T [facility] SODIUM S/P/B 140 136 - 145 MMOL/L 01/27/2024 10:00 AM T [facility] POTASSIUM S/P/B 4.5 3.5 - 5.1 MMOL/L 01/27/2024 10:00 AM T [facility] CHLORIDE S/P/B 105 100 - 108 MMOL/L 01/27/2024 10:00 AM [facility] CO2 27.1 21 - 32 MMOL/L 01/27/2024 10:00 AM [facility] CALCIUM S/P/B 9.0 8.5 - 10.1 MG/DL 01/27/2024 10:00 AM [facility] BILIRUBIN TOTAL S/P/B 1.2 0.2 - 1.2 MG/DL 01/27/2024 10:00 AM T [facility] TOTAL PROTEIN S/P/B 7.0 6.4 - 8.2 G/DL 01/27/2024 10:00 AM [facility] ALBUMIN S/P/B 3.7 3.4 - 5.0 G/DL 01/27/2024 10:00 AM T [facility] AST 22 15 - 37 U/L 01/27/2024 10:00 AM CDT [facility] ALT 43 16 - 60 U/L 01/27/2024 10:00 AM T [facility] ALKALINE PHOSPHATASE S/P/B 81 50 - 136 U/L 01/27/2024 10:00 AM T [facility] ANION GAP 7.9 5 - 15 MMOL/L 01/27/2024 10:00 AM T [facility] BUN CREATININE RATIO 22.7 6 - 26 01/27/2024 10:00 AM T [facility] A/G RATIO 1.1 1.0 - 2.0 RATIO 01/27/2024 10:00 AM T [facility] GFR ESTIMATE 66(L) >90 ML/MIN/1.7 3 M2 01/27/2024 10:00 AM T [facility] Comment: NOTE: eGFR is not calculated for patients <18 years of age. This is an estimated GFR calculation using the new CKD EPI creatinine equation without race and so does not require a correction factor for race. This estimated GFR should not be used for calculating drug doses. 01/27/2024 8:03 AM CDT Amado [facility] Final Result [facility] [address] [place] [address], * THYROXINE, FREE (FT4) (01/27/2024 8:03 AM CDT) FREE T4 1.22 0.76 - 1.46 NG/DL 01/27/2024 10:00 AM CDT [facility] 01/27/2024 8:03 AM CDT Amado [facility] Final Result [facility] [address] [place] [address], [place] [phone] * (ABNORMAL) HEMOGLOBIN, GLYCOSYLATED (01/27/2024 8:03 AM CDT) HGB A1C 6.1(H) <5.7 % 01/27/2024 9:46 AM CDT [facility] Comment: INCREASED RISK OF DIABETES <5.7% ?NON-DIABETES 5.7-6.4% INCREASED RISK FOR FUTURE DIABETES > OR = 6.5 CONSISTENT WITH DIABETES STANDARDS OF MEDICAL CARE IN DIABETES-2010 DIABETES CARE, 33(SUPP 1): S1-S61,2009 ESTIMATED AVG GLUCOSE 128 mg/dL 01/27/2024 9:46 AM CDT [facility] 01/27/2024 8:03 AM CDT Amado [facility] Final Result Performing Organization Address [facility] Co de Phone Number [facility] [address] [place] [address], [place] [phone] * PROSTATE SPECIFIC ANTIGEN,SCREENING (01/27/2024 8:03 AM CDT) PSA 2.69 <4.00 NG/ML 01/27/2024 9:46 AM CDT [facility] Comment: Test was performed using the Siemens method. ??Results obtained with other assay methods or kits cannot be used interchangeably with results obtained by the Siemens method. 01/27/2024 8:03 AM CDT Amado [facility] Final Result Performing Organization Address City/[facility]/ZIP Co de Phone Number [facility] [address] [place] [address], documented in this encounter Visit Diagnoses Diagnosis Prostate cancer screening Special screening for malignant neoplasm of prostate Prediabetes Other abnormal glucose Other specified hypothyroidism Hypertension, unspecified type Vitamin D deficiency Unspecified vitamin D deficiency Dyslipidemia Other and unspecified hyperlipidemia documented in this encounter Additional Health Concerns Assessment Noted Time PHQ-9 Depression Total Score: 0 12/14/19 21 9:36 AM CDT documented as of this encounter Care Teams Public Health Registrar Relationship Specialty [place] [address] [place] [address] PCP - General Physician Police Officer [employer] 06/25/23 documented as of this encounter
--- OUTSIDE RECORDS SUMMARY | 2024-04-11 05:34 | XMS_ITS | Encounter Summary ---
Author Organization [facility] Address [address] [place] [address]. 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 Sexual Orientation Straight 06/28/2021 10 :21 AM CDT documented as of this encounter Plan of Treatment Upcoming Encounters Date Type Department Care Team (Late st Contact Info) Description 08/05/2024 10:00 AM CDT Office Visit [facility] Family & Internal Medicine [facility] [address] [place], [place] [address] [place] [address] [place] [address] 02/15/2025 10:45 AM AIRCRAFT MAINTENANCE SUPERVISOR Office Visit [facility] [address] [place], [place] [phone] Dale Shahid MD [facility], [address] [place] [address] documented as of this encounter Visit Diagnoses Not on filedocumented in this encounter Additional Health Concerns Assessment Noted Time PHQ-9 Depression Total Score: 0 12/14/19 21 9:36 AM CDT documented as of this encounter Care Teams Squeezer Operator Relationship Specialty [place] [address] [place] [address] PCP - General Physician [employer] Fusion Developer Medical 06/25/23 documented as of this encounter
--- OUTSIDE RECORDS SUMMARY | 2024-04-11 05:34 | XMS_ITS | Encounter Summary ---
Author Organization [facility] Address [address] [place] [address]. [place], [place] [address] [place] [address] Care Team Providers Care Assistant Director Of Financial Aid Name Role Phone Amado Mathew Primary Care Provider [phone] Encounter Details Date Type Department Care Team (Latest Contact Info) Description 01/10/2024 Travel Social History Tobacco Use Types Packs/Day [...] CDT Gender Identity Male 06/12/2021 5:16 AM CREDIT OPERATIONS PROCESSOR Sexual Orientation Straight 06/28/2021 10 :21 AM CDT documented as of this encounter Plan of Treatment Upcoming Encounters Date Type Department Care Team (Late st Contact Info) Description 08/05/2024 10:00 AM CDT Office Visit [facility] Family & Internal Medicine [facility] [address] [place], [place] [address] [place] [address] [place] [address] 02/15/2025 10:45 AM CREDIT OPERATIONS PROCESSOR Office Visit [facility] [address] [place], [place] [phone] Dale Shahid MD [facility], [address] [place] [address] documented as of this encounter Visit Diagnoses Not on filedocumented in this encounter Additional Health Concerns Assessment Noted Time PHQ-9 Depression Total Score: 0 12/14/19 21 9:36 AM CDT documented as of this encounter Care Teams Assistant Director Of Financial Aid Relationship Specialty [place] [address] [place] [address] PCP - General Physician Film Coater Medical 06/25/23 documented as of this encounter
--- OUTSIDE RECORDS SUMMARY | 2024-04-11 05:34 | XMS_ITS | Encounter Summary ---
Author Organization [facility] Address [address] [place] [address]. [place] [address] [place] [address] Care Team Providers Care Grease Cup Filler Name Role Phone Amado Mathew Primary Care Provider [phone] Reason for Visit * Reason Comments Follow Up Right middle trigger finger, injection did not help Encounter Details Date Type Department Care Team (Late st Contact Info) Description 01/07/2024 8:40 AM CDT Office Visit [facility] Orthopedic & Sports Medicine - [place] [address] [place] [address] Jose Hackett NP [address] [facility] 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 Alcohol Use Standard Drinks/Week Comments Not Currently [...] CDT Gender Identity Male 06/12/2021 5:16 AM COKE HANDLING SUPERVISOR Sexual Orientation Straight 06/28/2021 10 :21 AM CDT documented as of this encounter Last Filed Vital Signs Vital Sign Reading Time Taken Comments Blood Pressure 129/84 01/07/2024 8:25 AM CDT Pulse 61 01/07/2024 8:25 AM CDT Temperature 36.7 ??C (98.1 ??F) 01/07/2024 8:25 AM CD T Respiratory Rate - - Oxygen Saturation 98% 01/07/2024 8:25 AM CDT Inhaled Oxygen Concentration - - Weight 123 kg (271 lb 3.2 oz) 01/07/2024 8:25 AM CDT Height 182.9 cm (6') 01/07/2024 8:25 AM CDT Body Mass Index 36.78 01/07/2024 8:25 AM CDT documented in this encounter Progress Notes * Jose Hackett NP - 01/07/2024 8:40 AM CDT [...] Smoking status: Never 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 Guzman was consulted and examined this patient. I personally spent a total of 20 minutes on the day of the encounter. This includes tyzu-wx-mjww and vop-qukg-gc-face time I provided on the day of the encounter & excludes time spent performing separately reportable services. I spent an additional 4 minutes performing the procedure. JOSE HACKETT NP 01/07/2024 Cc. KHUSHBU MONET No ref. provider found Cosigned by Bin Guzman MD at 01/07/2024 10:53 AM CDT Associated attestation - Bin Guzman MD - 01/07/2024 10:53 AM CDT I, BIN GUZMAN MD, participated in the care of this patient today and discussed the plan of carewith CONCHA Hackett, who shared in this visit. I have reviewed the CONCHA's documentation and agree with the findings except as I have documented. I personally spent 15 minutes, caring for this patient. Etiology, pathophysiology and natural history of trigger finger tendonitis was discussed with the patient. Including explanation of relevant anatomy. Treatment options from [...] complications were all discussed. Possible need of Post op rehab was also explained. Patient voices understanding and wishes to proceed with a right middle finger open trigger release. BIN GUZMAN MD documented in this encounter Plan of Treatment Upcoming Encounters Date Type Department Care Team (Late st Contact Info) Description 08/05/2024 10:00 AM CDT Office Visit [facility] Medical Group Family & Internal Medicine [facility] [address] [place] [address] [place] [address] [place], [place] [phone] 02/15/2025 10:45 AM COKE HANDLING SUPERVISOR Office Visit [facility] [address] [place] [address] Dale Shahid MD [facility], [address] [place] [address] documented as of this encounter Visit Diagnoses Diagnosis Trigger middle finger of right hand- Primary Trigger finger (acquired) documented in this encounter Additional Health Concerns Assessment Noted Time PHQ-9 Depression Total Score: 0 12/14/19 21 9:36 AM CDT documented as of this encounter Care Teams Grease Cup Filler Relationship Specialty [place] [address] [place] [address] PCP - General Physician Fish Drier Medical 06/25/23 documented as of this encounter
--- OUTSIDE RECORDS SUMMARY | 2024-04-11 05:34 | XMS_ITS | Encounter Summary ---
Author Organization [facility] Address [address] [place] [address]. [place], [place] [address] [place] [address] Care Team Providers Care Svp Operations Name Role Phone Amado Mathew Primary Care Provider [phone] Reason for Visit * Reason Onset Date Comments Quality Gap Closure 07/31/2023 Encounter Details Date Type Department Care Team (Late st Contact Info) Description 07/31/2023 Patient Outreach [facility] Medical Group Family & Internal Medicine [facility] [address] [place] [address] Jennifer Ngo MA Quality Gap Closure Social History Tobacco Use Types Packs/Day Years Used Date Smoking Tobacco: Never Passive Smoke Exposure: Past Smokeless Tobacco: Never Tobacco Cessation:Counseling Given: No 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 Alcohol Use Standard Drinks/Week Comments Not Currently 0 (1 standard drink = 0.6 oz pur e alcohol) occasional glass of wine PHQ-2 Answer Date Recorded Patient Health Questionnaire-2 Score 0 08/08/2022 Sex and Gender Information Value Date Recorded Sex Assigned at Not on file Legal Sex Male 7:33 PM CDT Gender Identity Male 06/12/2021 5:16 AM FIRST GRADE TEACHER Sexual Orientation Straight 06/28/2021 10 :21 AM CDT documented as of this encounter Progress Notes * Jennifer Ngo MA - 07/31/2023 1:10 PM CDT I am a patient quality advocate calling this patient on behalf of the virtual [employer] work team to assess the below quality gaps. If you need to contact me directly- my number is [phone]. Preventive Screenings: Breast Cancer Screening: N/A Notes: n/a Colorectal Cancer Screening: Up to Date Notes:11/29/2014 Diabetic Eye Exam: N/A Notes:n/a Falls Risk Screening: Gap Closed Notes: nfu no, no no gc Tobacco Cessation: Gap Closed Notes: nfu/ never / not counseled Labs: BMP/CMP: N/A Notes: n/a Hemoglobin A1c: N/A Notes: n/a Lipid: N/A Notes: n/a Urine Albumin-Creatinine Ratio: N/A Notes: n/a Immunizations: Pneumococcal: Needs Follow Up Notes: nfu declined Shingles: Needs Follow Up Notes: nfu declined documented in this encounter Plan of Treatment Upcoming Encounters Date Type Department Care Team (Late st Contact Info) Description 08/05/2024 10:00 AM CDT Office Visit [facility] Medical Group Family & Internal Medicine [facility] [address] [place] [address] [place] [address] [place], [place] [phone] 02/15/2025 10:45 AM FIRST GRADE TEACHER Office Visit [facility] [address] [place] [address] Dale Shahid MD [facility], [address] [place] [address] documented as of this encounter Visit Diagnoses Not on filedocumented in this encounter Additional Health Concerns Assessment Noted Time PHQ-9 Depression Total Score: 0 12/14/19 9:36 AM CDT documented as of this encounter Care Teams Svp Operations Relationship Specialty [place] [address] [facility] [place] [address] PCP - General Physician Carpenter [employer] 06/25/23 documented as of this encounter
--- OUTSIDE RECORDS SUMMARY | 2024-04-11 05:34 | XMS_ITS | Encounter Summary ---
Author Organization [facility] Address [address] [place] [address]. [place], [place] [address] [place] [address] Care Team Providers Care Load Haul Dump Operator Name Role Phone Amado Mathew Primary Care Provider [phone] Encounter Details Date Type Department Care Team (Latest Contact Info) Description 01/23/2024 Travel Social History Tobacco Use Types Packs/Day [...] CDT Gender Identity Male 06/12/2021 5:16 AM FOURCHETTE SEWER Sexual Orientation Straight 06/28/2021 10 :21 AM CDT documented as of this encounter Plan of Treatment Upcoming Encounters Date Type Department Care Team (Late st Contact Info) Description 08/05/2024 10:00 AM CDT Office Visit [facility] Medical Group Family & Internal Medicine [facility] [address] [place], [place] [phone] [place] [address] [place] [address] 02/15/2025 10:45 AM FOURCHETTE SEWER Office Visit [facility] [address] [place], [place] [phone] Dale Shahid MD [facility], [address] [place] [address] documented as of this encounter Visit Diagnoses Not on filedocumented in this encounter Additional Health Concerns Assessment Noted Time PHQ-9 Depression Total Score: 0 12/14/19 21 9:36 AM CDT documented as of this encounter Care Teams Load Haul Dump Operator Relationship Specialty [place] [address] [place] [address] PCP - General Physician [employer] Mechanic Medical 06/25/23 documented as of this encounter
--- OUTSIDE RECORDS SUMMARY | 2024-04-11 05:34 | XMS_ITS | Encounter Summary ---
Author Organization [facility] Address [address] [place] [address]. [place], [place] [address] [place] [address] Care Team Providers Care Hand Braille Transcriber Name Role Phone JennieKacey membreno RASHMI Primary Care Provider [phone] Encounter Details Date Type Department Care Team (Latest Contact Info) Description 02/28/2023 Travel Social History Tobacco Use Types Packs/Day [...] CDT Gender Identity Male 06/12/2021 5:16 AM ALL TERRAIN VEHICLE RACER Sexual Orientation Straight 06/28/2021 10 :21 AM CDT documented as of this encounter Plan of Treatment Upcoming Encounters Date Type Department Care Team (Late st Contact Info) Description 08/05/2024 10:00 AM CDT Office Visit [facility] Medical Group Family & Internal Medicine [facility] [address] [place] [address] [place] [address] [place] [address] 02/15/2025 10:45 AM ALL TERRAIN VEHICLE RACER Office Visit [facility] [address] [place] [address] Dale Shahid MD [facility], [address] [place] [address] documented as of this encounter Visit Diagnoses Not on filedocumented in this encounter Additional Health Concerns Infection Onset Date Last Indicated Resolved Time COVID-19 Rule Out 02/28/2023 02/28/2023 02/28/2023 9:17 AM ALL TERRAIN VEHICLE RACER COVID-19 Confirmed 02/28/2023 02/28/2023 12:32 AM ALL TERRAIN VEHICLE RACER Assessment Noted Time PHQ-9 Depression Total Score: 0 12/14/19 21 9:36 AM CDT documented as of this encounter Care Teams Hand Braille Transcriber Relationship Specialty [place] [address] [address], [address] [place] [address] PCP - General Nurse Practitioner Family 07/20/2206/13 documented as of this encounter
--- OUTSIDE RECORDS SUMMARY | 2024-04-11 05:34 | XMS_ITS | Encounter Summary ---
Author Organization [facility] Address [address] [place] [address]. [place], [place] [address] [place] [address] Care Team Providers Care Waterworks Operator Name Role Phone Amado Mathew Primary Care Provider [phone] Encounter Details Date Type Department Care Team (Latest Contact Info) Description 08/06/2023 Travel Social History Tobacco Use Types Packs/Day [...] CDT Gender Identity Male 06/12/2021 5:16 AM ALLERGY SPECIALIST Sexual Orientation Straight 06/28/2021 10 :21 AM CDT documented as of this encounter Plan of Treatment Upcoming Encounters Date Type Department Care Team (Late st Contact Info) Description 08/05/2024 10:00 AM CDT Office Visit [facility] Medical Group Family & Internal Medicine [facility] [address] [place], [place] [phone] [place] [address] [place] [address] 02/15/2025 10:45 AM ALLERGY SPECIALIST Office Visit [place] [facility] [address] [place], [place] [phone] Dale Shahid MD [facility], [address] [place] [address] documented as of this encounter Visit Diagnoses Not on filedocumented in this encounter Additional Health Concerns Assessment Noted Time PHQ-9 Depression Total Score: 0 12/14/19 21 9:36 AM CDT documented as of this encounter Care Teams Waterworks Operator Relationship Specialty [place] [address] [place] [address] PCP - General Physician Substation Operator Helper Generation Medical 06/25/23 documented as of this encounter
--- OUTSIDE RECORDS SUMMARY | 2024-04-11 05:34 | XMS_ITS | Encounter Summary ---
Author Organization [facility] Address [address] [place] [address]. 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 [address] [place], [place] [phone] [place] [address] [place] [address] 02/15/2025 10:45 AM CREPE MACHINE OPERATOR Office Visit [place] [facility] [address] [place], [place] [phone] Dale Shahid MD [facility], [address] [place] [address] documented as of this encounter Visit Diagnoses Not on filedocumented in this encounter Additional Health Concerns Assessment Noted Time PHQ-9 Depression Total Score: 0 12/14/19 21 9:36 AM CDT documented as of this encounter Care Teams Skeet Operator Relationship Specialty [place] [address] [place] [address] PCP - General Physician Architecture Professor Medical 06/25/23 documented as of this encounter
--- OUTSIDE RECORDS SUMMARY | 2024-04-11 05:34 | XMS_ITS | Encounter Summary ---
Author Organization [facility] Address [address] [place] [address]. [place], [place] [address] [place] [address] Care Team Providers Care Trapper Bird Name Role Phone Amado Mathew Primary Care Provider [phone] Encounter Details Date Type Department Care Team (Latest Contact Info) Description 02/05/2024 Travel Social History Tobacco Use Types Packs/Day [...] CDT Gender Identity Male 06/12/2021 5:16 AM REFERENCE ARCHIVIST Sexual Orientation Straight 06/28/2021 10 :21 AM CDT documented as of this encounter Plan of Treatment Upcoming Encounters Date Type Department Care Team (Late st Contact Info) Description 08/05/2024 10:00 AM CDT Office Visit [facility] Medical Group Family & Internal Medicine [facility] [address] [place], [place] [phone] [place] [address] [place] [address] 02/15/2025 10:45 AM REFERENCE ARCHIVIST Office Visit [facility] [address] [place], [place] [phone] Dale Shahid MD [facility], [address] [place] [address] documented as of this encounter Visit Diagnoses Not on filedocumented in this encounter Additional Health Concerns Assessment Noted Time PHQ-9 Depression Total Score: 0 12/14/19 21 9:36 AM CDT documented as of this encounter Care Teams Trapper Bird Relationship Specialty [place] [address] [place] [address] PCP - General Physician Marketing Project Coordinator Medical 06/25/23 documented as of this encounter
--- OUTSIDE RECORDS SUMMARY | 2024-04-11 05:34 | XMS_ITS | Encounter Summary ---
Author Organization [facility] Address [address] [place] [address]. [place], [place] [address] [place] [address] Care Team Providers Care Compliance Review Specialist Name Role Phone Amado Mathew Primary Care Provider [phone] Encounter Details Date Type Department Care Team (Latest Contact Info) Description 10/31/2023 Travel Social History Tobacco Use Types Packs/Day [...] CDT Gender Identity Male 06/12/2021 5:16 AM FILLER IN Sexual Orientation Straight 06/28/2021 10 :21 AM CDT documented as of this encounter Plan of Treatment Upcoming Encounters Date Type Department Care Team (Late st Contact Info) Description 08/05/2024 10:00 AM CDT Office Visit [facility] Medical Group Family & Internal Medicine [facility] [address] [place], [place] [phone] [place] [address] [place] [address] 02/15/2025 10:45 AM FILLER IN Office Visit [place] [facility] [address] [place], [place] [address] Dale Shahid MD [facility], [address] [place] [address] documented as of this encounter Visit Diagnoses Not on filedocumented in this encounter Additional Health Concerns Assessment Noted Time PHQ-9 Depression Total Score: 0 12/14/19 21 9:36 AM CDT documented as of this encounter Care Teams Compliance Review Specialist Relationship Specialty [place] [address] [place] [address] PCP - General Physician Hvac Technician Residential Medical 06/25/23 documented as of this encounter
--- OUTSIDE RECORDS SUMMARY | 2024-04-11 05:34 | XMS_ITS | Encounter Summary ---
Author Organization [facility] Address [address] [place] [address]. [place], [place] [address] [place] [address] Care Team Providers Care High Risk Case Manager Name Role Phone WongKacey martinez RASHMI Primary Care Provider [phone] Reason for Visit * Reason Comments Cough Started last night. Pt declined PCR Sore Throat X4 days Encounter Details Date Type Department Care Team (Late st Contact Info) Description 02/27/2023 8:00 AM TRUCK UNLOADER Office Visit [facility] Medical Group Family & Internal Medicine [facility] [address] [place] [address] Mahnaz Dey, [place] [address] [place] [address] Cough (Started last night. 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 Alcohol Use Standard Drinks/Week Comments Not Currently 0 (1 standard drink = 0.6 oz pur e alcohol) occasional glass of wine PHQ-2 Answer Date Recorded Patient Health Questionnaire-2 Score 0 08/08/2022 Sex and Gender Information Value Date Recorded Sex Assigned at Not on file Legal Sex Male 7:33 PM CDT Gender Identity Male 06/12/2021 5:16 AM TRUCK UNLOADER Sexual Orientation Straight 06/28/2021 10 :21 AM CDT documented as of this encounter Last Filed Vital Signs Vital Sign Reading Time Taken Comments Blood Pressure 138/85 02/27/2023 7:58 AM TRUCK UNLOADER Pulse 72 02/27/2023 7:55 AM TRUCK UNLOADER Temperature 36.8 ??C (98.2 ??F) 02/27/2023 7:55 AM CS T Respiratory Rate 18 02/27/2023 7:55 AM TRUCK UNLOADER Oxygen Saturation 100% 02/27/2023 7:55 AM TRUCK UNLOADER Inhaled Oxygen Concentration - - Weight 120.7 kg (266 lb) 02/27/2023 7:55 AM TRUCK UNLOADER Height 182.9 cm (6') 02/27/2023 7:55 AM TRUCK UNLOADER Body Mass Index 36.08 02/27/2023 7:55 AM TRUCK UNLOADER documented in this encounter Patient Instructions * Attachments The following attachments cannot be sent through Care Everywhere. * Acute Bronchitis Discharge Instructions, Adult (Maldivian) documented in this encounter Progress Notes * KHUSHBU Pearl - 02/27/2023 8:00 AM CST Images from the original note were not included. _ Reason for Visit: Cough (Started last night. Pt declined PCR) and Sore Throat (X4 days) History of Present Illness: HPI Radha Zhang is a 67-year-old male here for patient or evaluation through the walk-in clinic for symptoms of upper respiratory infection to include nasal congestion, sore throat, and headache. Patient denies symptoms of visual disturbance or vomiting. Patient has noticed a fever. Patient has a deep cough with wheezing. Patient denies shortness of breath. Patienthas not had loose stools. Patient has been symptomatic for 1-2 days and is not improving with symptoms. [...] Outpatient Medications Marked as Taking for the 02/27/23 encounter (Office Visit) with KHUSHBU Pearl Medication [...] tablet (3,000 Units total) by mouthdaily. No Known Allergies Past Medical History: Diagnosis Date CAD (coronary artery disease) COVID-19 vaccine administered [address] 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 Head: Normocephalic. Mild frontal sinus tenderness Nose: Nose normal. Turbinates are swollen Mouth/Throat: Oropharynx is clear and moist. Positive postnasal drainage yellow Eyes: Pupils are equal, round, and reactive to light. Neck: No JVD present. No thyromegaly present. No nuchal rigidity Cardiovascular: Normal rate, regular rhythm, normal heart sounds and intact distal pulses. No murmur heard. Pulmonary/Chest: No respiratory distress. Patient has no wheezes. Patient has no rales. Patient exhibits no tenderness. Loose rhonchi is heard scattered throughout the lung singletary. Abdominal: Patient exhibits no distension and no [...] content normal. No data to display Vitals: 02/27/23 0755 02/27/23 0758 Patient Position: Sitting BP Location: Left arm Cuff size: Adult Long BP: (!) 144/85 138/85 Pulse: 72 Body mass index is 36.08 kg/m??. Assessment and Plan Encounter Diagnose(s) ICD-10-CM SNOMED CT(R) 1. Suspected COVID-19 virus infection Z20.822 SUSPECTED COVID-19 CORONAVIRUS (COVID-19) INFLUENZA A& B ANTIGEN IA PANEL 2. Sore throat J02.9 SORE THROAT RAPID STREP A CULTURE STREP A 3. Bronchitis J40 BRONCHITIS doxycycline hyclate (VIBRAMYCIN) 100 MG capsule Orders Placed This Encounter doxycycline hyclate (VIBRAMYCIN) 100 MG capsule CORONAVIRUS (COVID-19) INFLUENZA A & B ANTIGEN IA PANEL RAPID STREP A CULTURE STREP A Patient was told to push liquids and [...] Portions of this note were dictated using [employer] speech recognition software. Occasional wrong wordor sound-alike substitutions may have occurred due to the inherent limitations of voice recognition software. Please read the chart carefully and recognize, using context, where the substitutions may have occurred. Mahnaz Dey PA-C evaluated and Dr. Eliza Kennedy reviewed and agrees with plan. K UNLOADER K UNLOADER documented in this encounter Plan of Treatment Upcoming Encounters Date Type Department Care Team (Late st Contact Info) Description 08/05/2024 10:00 AM CDT Office Visit [facility] Medical Group Family & Internal Medicine - [place] [address] [place] [address] Amado Mathew PA [address] [place] [id number] 02/15/2025 10:45 AM TRUCK UNLOADER Office Visit [place] [facility] [address] [place] [address] Dale Shahid MD [facility], [address] [place] [address] documented as of this encounter Procedures Procedure Name Priority Date/Time Associated Diagnosis Comments CORONAVIRUS (COVID-19) INFLUENZA A & B ANTIGEN IA PANEL Routine 02/27/2023 Suspected COVID-19 virus infection RAPID STREP A Routine 02/27/2023 Sore throat documented in this encounter Results * CULTURE STREP A (02/27/2023 8:11 AM TRUCK UNLOADER) SPEC DESCRIPTION THROAT 02/27/2023 1:03 PM TRUCK UNLOADER [facility] SPECIAL REQUESTS NO SPECIAL REQUEST 02/27/2023 1:03 PM TRUCK UNLOADER [facility] CULTURE RESULT NO STREPTOCOCCUS PYOGENES (GROUP A) ISOLATED 03/01/2023 7:02 AM TRUCK UNLOADER [facility] THROAT SWAB / Unknown 02/27/2023 8:11 AM TRUCK UNLOADER 02/27/2023 1:09 PM TRUCK UNLOADER Mahnaz RÍOS MICROBIOLOGY - GENERAL ORDER AUGUSTIN Final Result [facility] [address] [place] [address], [place] [phone] [facility] [address] [place] [address], [place] [phone] * RAPID STREP A (02/27/2023) RAPID STREP TEST NEGATIVE NEGATIVE [id number] [facility] [address] [address] [place] Internal Control: VALID VALID [id number] [facility] STRUCT[facility] OF ANTERIOR PORTION OF NECK / Unknown 02/27/2023 us Mahnaz RÍOS MICROBIOLOGY - GENERAL ORDER AUGUSTIN Final Result [id number] [place] [address] [place] [address], [place] [phone] * CORONAVIRUS (COVID-19) INFLUENZA A & B ANTIGEN IA PANEL (02/27/2023) CORONAVIRUS ANTIGEN IA NEGATIVE NEGATIVE -[id number] [address] [place] Comment:Pt declined PCR INFLUENZA A NEGATIVE NEGATIVE -[id number] [address] [place] INFLUENZA B NEGATIVE NEGATIVE [id number] [place] Internal Control: VALID VALID -Charli [address] [place] NASAL STRUCTURE / Unknown 02/27/2023 us Mahnaz RÍOS MICROBIOLOGY - GENERAL ORDER AUGUSTIN Edited Result - Final [id number] [address] [place] [address] [place] [address], documented in this encounter Visit Diagnoses Diagnosis Suspected COVID-19 virus infection- Primary Sore throat Acute pharyngitis Bronchitis Bronchitis, not specified as acute or chronic documented in this encounter Additional Health Concerns Infection Onset Date Last Indicated Resolved Time COVID-19 Rule Out 02/27/2023 02/27/2023 02/27/2023 8:20 AM TRUCK UNLOADER COVID-19 Rule Out 02/28/2023 02/28/2023 02/28/2023 9:17 AM TRUCK UNLOADER COVID-19 Confirmed 02/28/2023 02/28/2023 12:32 AM TRUCK UNLOADER Assessment Noted Time PHQ-9 Depression Total Score: 0 12/14/19 21 9:36 AM CDT documented as of this encounter Care Teams High Risk Case Manager Relationship Specialty [place] [address] [address], [address] [place] [address] PCP - General Nurse Practitioner Family 07/20/2206/13 documented as of this encounter
--- OUTSIDE RECORDS SUMMARY | 2024-04-11 05:34 | XMS_ITS | Encounter Summary ---
Author Organization [facility] Address [address] [place] [address]. [place] [address] [place] [address] Care Team Providers Care Burrer Hand Name Role Phone Amado Mathew Primary Care Provider [phone] Reason for Visit * Auth/Cert (Routine) Specialty Diagnoses / Procedures Referred By Emiliano t Referred To Contact Diagnoses Trigger middle finger of right hand right middle finger trigger M65.331 Procedures INCISE FINGER TENDON SHEATH right middle finger open trigger release Bin Guzman MD [address] [place] [address] Phone: tel: fax: Referral ID Status Reason Start Date Expiration Date Visits Re quested Visits Authorized [id number] 1 1 Encounter Details Date Type Department Care Team (Late st Contact Info) Description 01/17/2024 11:39 AM CDT Anesthesia Event [facility] [place] [address] Jermaine Heredia MD [address] [place], [place] [id number] Concepcion Gil FNP [address] [place] [address] Anesthesia Record Procedure Summary Procedure Name Responsible Anesthesiologist Anesthesia Start Time Anesthesia Stop Time right middle finger open trigger release (Right: Finger) Jermaine Heredia MD 01/17/24 1139 01/17/24 1221 Events Date Time Event Comment 01/17/2024 0949 0949 AN Anesthesia Prepped 1102 AN RESEARCH PROGRAM ASSISTANT Prepped 1139 An Start Patient ID and consent checked and patient reassessed. 1140 An Start Data 1141 Preoxygenation 1143 An Induction The patient was reevaluated immediately before moderate or deep sedation use and before anesthesia induction. 1144 An LMA 1145 Anesthesia Ready 1202 An Tourn Inflated Right arm 225 mmHg 1207 An Tourn Deflated 1209 LMA Removed 1210 An Emergence 1214 Face Mask Applied 1215 an stop data 1221 Post Anesthetic Care Handoff I completed my handoff to the receiving nurse during which we: 1. Identified the patient 2. Identified the responsible provider 3. Reviewed the pertinent medical history 4. Discussed the surgical course 5. Reviewed intra-op anesthesia management and issues during anesthesia 6. Set expectations for post-procedure period 7. Allowed opportunity for questions and acknowledgement of understanding. 1221 An Stop Meds Name Total lidocaine (PF) (XYLOCAINE) 2% injection 50 mg propofol (DIPRIVAN) 200 mg/20 mL injecti on 200 mg ceFAZolin (ANCEF) 3 g in sodium chloride 0.9 % 100 mL IVPB 3 g ondansetron (ZOFRAN) 4 mg/2 mL injection 4 mg dexamethasone (DECADRON) injection 8 mg fentaNYL (SUBLIMAZE) 100 mcg/2 mL inject ion 25 mcg lactated ringers infusion 400 mL * Agents Name O2 Air Inspired Sevoflurane Sevoflurane Ancillary O2 * Blood No blood administrations on file. Lines, Drains, and Airways Type Details Placement Removal Peripheral IV Placement Date: 08/06; Placed Outside of This Facility?: No; Size: 20 G; Orientation: Left; Location: Antecubital; Site Prep: Chlorhexidine; Local Anesthetic: None; Inserted By: Adore BARLOW; Insertion attempts: 1; Ultrasound-guided Placement?: No; Patient Tolerance: Tolerated well; Removal Date: 01/17/24; Removal Time: 1311; Removal Reason: Patient Discharged 01/17/24 0000 by Tamiko Mchugh RN 01/17/24 1311 by Tamiko Mchugh RN Surgical/Incision 01/17/24; 1109; Surg ical Wound; Hand; Right; x1 incision closed with xeroform, 4x4s, kerlix, jessica, coban.; 01/17/24; 1311; (patient discharged) 01/17/24 1109 by Sahara Esteves RN 01/17/24 1311 by Tamiko Mchugh RN Supraglottic Airway Placement Date: 08/06; Placement Time: 1144; Airway Device: LMA; LMA Size: 5; Placed By: GINO; Insertion Attempts:1; Placement Verified By: Capnography, Chest Rise; Extubation Assessment: Tolerated well, Patient spontaneously breathing, Atraumatic, Deep; Removal Date: 01/17/24; Removal Time: 1209; Removal Person: RESEARCH PROGRAM ASSISTANT; Removal Reason: End of Case 01/17/24 1144 by Jim Townsend CRNA 01/17/24 1209 by Jim Townsend CRNA Supraglottic Airway Placement Date: 08/06; Placement Time: 1209; Airway Device: Oral pharyngeal airway; Removal Date: 01/17/24; Removal Time: 1225 01/17/24 1209 by Jim Townsend CRNA 01/17/24 1225 by Joyce Gordillo RN documented in this encounter Social History Tobacco [...] CDT Gender Identity Male 06/12/2021 5:16 AM 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 Sexual Orientation Straight 06/28/2021 10 :21 AM CDT documented as of this encounter OR Notes * Anesthesia Postprocedure Evaluation - Jermaine Heredia MD - 01/17/2024 2:20 PM CDT Anesthesia Post-op Note Radha Zhang Procedure(s): right middle finger open trigger release (Right: Finger) Anesthesia type: general Vitals: 01/17/24 1311 BP: (!) 148/95 Vitals: 01/17/24 1311 Pulse: (!) 54 Vitals: 01/17/24 1311 Resp: 16 Vitals: 01/17/24 1311 Temp: 36.5 ??C Vitals: 01/17/24 1311 SpO2: 98% Patient Location: Phase II/Outpatient Level of Consciousness: awake, oriented and alert Pain Management: adequate analgesia Airway Patency: patent Respiratory Status: acceptable Cardiovascular Status: acceptable Post-Op Nausea: none Postoperative Hydration: euvolemic No notable events documented. * Anesthesia Preprocedure Evaluation - Jermaine Heredia MD - 01/17/2024 9:47 AM CDT Anesthesia ROS/MED History Reviewed: Patient summary , ECG, Family history anesthesia, Anesthesia history , Medications , Labs , Images/Studies Pre-Anesthetic State: alert, awake and responds appropriately no history of anesthetic complications Pulmonary (-) COPD, sleep apnea, asthma Cardiovascular (+) past MT, CAD, (Stent), hyperlipidemia(-) hypertension, CHF, arrhythmia Neuro/Psych (-) no seizures, no CVA Substance Use (-) smoker, vaping user GI/Hepatic/Renal (-) GERD, PUD, liver disease, renal disease Endo/Other (-) diabetes, normal weight range, blood dyscrasia GENERAL COMMENTS Review of patient's allergies indicates: Patient has no known allergies. NPO Past Medical History: No date: Arthritis No date: CAD (coronary artery disease) 2020: COVID-19 vaccine administered Comment: Pfizer No date: Hypercholesterolemia No date: Hypothyroidism, unspecified 12/13/2020: Influenza vaccine refused No date: Kidney stones No date: NSTEMI (non-ST elevated myocardial infarction) ([facility]) No date: Obesity, unspecified No date: Prediabetes No date: Trigger finger Comment: right middle finger Past Surgical History: 10/14/2020: CARDIAC STENTS No date: LITHOTRIPSY 10/2022: REPLACEMENT TOTAL KNEE; Left NPO Status: Physical Evaluation Airway Mallampati: II Dental No notable dental history Pulmonary Breath sounds clear to auscultation Cardiovascular Rhythm: regular Rate: normal STOP-Bang Assessment: Do you snore loudly?: 1 Do you often feel tired or fatigued after your sleep?: 1 Has anyone ever observed you stop breathing in your sleep?: 1 Do you have or are you being treated for high blood pressure?: 0 Recent BMI (Calculated): 36.8 Is BMI greater than 35 kg/m2?: 1=Yes Age older than 50 years old?: 1=Yes Is your neck circumference greater than 17 inches (Male) or 16 inches (Female)?: 1 Gender - Male: 1=Yes STOP-Bang Total Score: 7 Anesthesia Plan ASA 2 Intravenous Induction Anesthesia type: general Plan for Airway: LMA Plan for Post-op Pain Plan: as per surgeon and oral pain medication GA w/ LMA Informed Consent Anesthetic plan and risks discussed with patient of whom consent was obtained. . documented in this encounter Plan of Treatment Upcoming Encounters Date Type Department Care Team (Late st Contact Info) Description 08/05/2024 10:00 AM CDT Office Visit [facility] Family & Internal Medicine [facility] [address] [place] [phone] Amado Mathew PA [address] [place] [id number] 02/15/2025 10:45 AM 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 Office Visit [facility] [address] [place] [address] Dale Shahid MD [facility], [address] [place] [address] documented as of this encounter Visit Diagnoses Not on filedocumented in this encounter Administered Medications Inactive Administered Medications - up to 3 most recent administrations Medication Order MAR Action Action Date Dose Rate Site ceFAZolin (ANCEF) 3 g in sodium chloride 0.9 % 100 mL IVPB 3 g, Intravenous, at 400 mL/hr, at home independent call center agent, 1 dose, On Sat01/17/24 at 0930, Give 3 gram dose for patients greater than or equal to 120 kg. Give within 60 minutes of surgical incision., Pre-OpIndications:Trigger middle finger of right hand New Bag 01/17/2024 11:47 AM CDT 3 g dexamethasone (DECADRON) injection Intravenous, PRN, Starting on Sat01/17/24 at 1147, Until Sat01/17/24 at 1221, Anesthesia Intra-Op Given 01/17/2024 11:47 AM CDT 8 mg fentaNYL (SUBLIMAZE) injection Intravenous, PRN, Starting on Sat01/17/24 at 1151, Until Sat01/17/24 at 1221, Anesthesia Intra-Op Given 01/17/2024 11:51 AM CDT 25 mcg lactated ringers infusion at 10 mL/hr, Intravenous, Continuous, Starting on Sat01/17/24 at 0930, Until Sat01/17/24 at 1515, Infuse at TKO rate, Pre-Op New Bag 01/17/2024 11:39 AM CDT lidocaine (PF) (XYLOCAINE) 2 % injection Intravenous, PRN, Starting on Sat01/17/24 at 1143, Until Sat01/17/24 at 1221, Anesthesia Intra-Op Given 01/17/2024 11:43 AM CDT 50 mg ondansetron (ZOFRAN) injection Intravenous, PRN, Starting on Sat01/17/24 at 1204, Until Sat01/17/24 at 1221, Anesthesia Intra-Op Given 01/17/2024 12:04 PM CDT 4 mg propofol (DIPRIVAN) IV bolus Intravenous, PRN, Starting on Sat01/17/24 at 1143, Until Sat01/17/24 at 1221, Anesthesia Intra-Op Given 01/17/2024 11:43 AM CDT 200 mg documented in this encounter Additional Health Concerns Assessment Noted Time PHQ-9 Depression Total Score: 0 12/14/19 21 9:36 AM CDT documented as of this encounter Care Teams Burrer Hand Relationship Specialty [place] [address] [place] [address] PCP - General Physician [facility] 06/25/23 documented as of this encounter
--- OUTSIDE RECORDS SUMMARY | 2024-04-11 05:34 | XMS_ITS | Encounter Summary ---
Author Organization [facility] Address [address] [place] [address]. 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 amoxicillin (AMOXIL) 500 MG capsuleIndications:F OR DENTAL USE ONLY Take 4 capsules (2,000 mg total) by mouth once. Indications: FOR DENTAL USE ONLY 04/26/2023 4 atorvastatin (LIPITOR) 80 MG tabletIndications:Mi xed hyperlipidemia [...] Description 08/05/2024 10:00 AM CDT Office Visit [facility] Family & Internal Medicine [facility] [address] [place] [phone] [place] [address] [place] [address] 02/15/2025 10:45 AM PEST CONTROL SERVICE TECHNICIAN Office Visit [facility] [address] [place] [address] Dale Shahid MD [facility], [address] [place] [address] documented as of this encounter Procedures Procedure Name Priority Date/Time Associated Diagnosis Comments TSH W/REFLEX Routine 08/06/2023 10:36 AM CDT Other specified hypothyroidism HEMOGLOBIN, GLYCOSYLATED Routine 08/06/2023 10:36 AM CDT Prediabetes COMPREHENSIVE METABOLIC PANEL Routine 08/06/2023 10:36 AM CDT Prediabetes documented in this encounter Results * (ABNORMAL) HEMOGLOBIN, GLYCOSYLATED (08/06/2023 10:36 AM CDT) HGB A1C 6.5(H) <5.7 % 08/06/2023 1:02 PM CDT [facility] Comment: INCREASED RISK OF DIABETES <5.7% ?NON-DIABETES 5.7-6.4% INCREASED RISK FOR FUTURE DIABETES > OR = 6.5 CONSISTENT WITH DIABETES STANDARDS OF MEDICAL CARE IN DIABETES-2010 DIABETES CARE, 33(SUPP 1): S1-S61,2010 ESTIMATED AVG GLUCOSE 140 mg/dL 08/06/2023 1:02 PM CDT [facility] 08/06/2023 10:3 6 AM CDT us [facility] Final Result [facility] [address] [place] [address], [place] [phone] * (ABNORMAL) COMPREHENSIVE METABOLIC PANEL (08/06/2023 10:36 AM CDT) [facility] GLUCOSE 105(H) 70 - 99 MG/DL 08/06/2023 1:12 PM CDT [facility] BUN 23(H) 7 - 18 MG/DL 08/06/2023 1:12 PM CDT [facility] CREATININE S/P/B 1.18 0.7 - 1.3 MG/DL 08/06/2023 1:12 PM CDT [facility] SODIUM S/P/B 140 136 - 145 MMOL/L 08/06/2023 1:12 PM CDT [facility] POTASSIUM S/P/B 4.6 3.5 - 5.1 MMOL/L 08/06/2023 1:12 PM CDT [facility] CHLORIDE S/P/B 105 100 - 108 MMOL/L 08/06/2023 1:12 PM CDT [facility] CO2 25.2 21 - 32 MMOL/L 08/06/2023 1:12 PM T [facility] CALCIUM S/P/B 8.7 8.5 - 10.1 MG/DL 08/06/2023 1:12 PM T [facility] BILIRUBIN TOTAL S/P/B 1.1 0.2 - 1.2 MG/DL 08/06/2023 1:12 PM T [facility] TOTAL PROTEIN S/P/B 6.9 6.4 - 8.2 G/DL 08/06/2023 1:12 PM T [facility] ALBUMIN S/P/B 4.0 3.4 - 5.0 G/DL 08/06/2023 1:12 PM CDT [facility] AST 22 15 - 37 U/L 08/06/2023 1:12 PM CDT [facility] ALT 44 16 - 60 U/L 08/06/2023 1:12 PM CDT [facility] ALKALINE PHOSPHATASE S/P/B 92 50 - 136 U/L 08/06/2023 1:12 PM CDT [facility] ANION GAP 9.8 5 - 15 MMOL/L 08/06/2023 1:12 PM CDT [facility] BUN CREATININE RATIO 19.5 6 - 26 08/06/2023 1:12 PM CDT [facility] A/G RATIO 1.4 1.0 - 2.0 RATIO 08/06/2023 1:12 PM CDT [facility] GFR ESTIMATE 67(L) >90 ML/MIN/1.7 3 M2 08/06/2023 1:12 PM CDT [facility] Comment: NOTE: eGFR is not calculated for patients <18 years of age. This is an estimated GFR calculation using the new CKD EPI creatinine equation without race and so does not require a correction factor for race. This estimated GFR should not be used for calculating drug doses. 08/06/2023 10:3 6 AM CDT [facility] Final Result [facility] [address] [place] [address], * TSH W/REFLEX (08/06/2023 10:36 AM CDT) TSH 0.809 0.358 - 3.74 uIU/ML 08/06/2023 1:12 PM CDT [facility] Comment: HIGH DOSES OF BIOTIN MAY INTERFERE WITH THIS TEST RESULT. CORRELATION TO CLINICAL HISTORY AND PRESENTATION RECOMMENDED. FREE T4 NOT INDICATED 08/06/2023 10:3 6 AM CDT us Am[facility] Final Result [facility] [address] [place] [address], documented in this encounter Visit Diagnoses Diagnosis Other specified hypothyroidism Prediabetes Other abnormal glucose documented in this encounter Additional Health Concerns Assessment Noted Time PHQ-9 Depression Total Score: 0 12/14/19 9:36 AM CDT documented as of this encounter Care Teams Press Machine Feeder Relationship Specialty [place] [address] [place] [address] PCP - General Physician Patient Relations Coordinator Medical 06/25/23 documented as of this encounter
--- OUTSIDE RECORDS SUMMARY | 2024-04-11 05:34 | XMS_ITS | Encounter Summary ---
Author Organization [facility] Address [address] [place] [address]. [place], [place] [address] [place] [address] Care Team Providers Care Support Architect Name Role Phone Amado Mathew Primary Care Provider [phone] Reason for Visit * Reason Comments Coronary Artery Disease annual Encounter Details Date Type Department Care Team (Late st Contact Info) Description 02/10/2024 1:45 PM CDT Office Visit [facility] [address] [place] [address] Dale Shahid MD [facility], [address] [place] [address] Coronary Artery Disease (annual) Social History Tobacco Use Types Packs/Day Years [...] CDT Gender Identity Male 06/12/2021 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 Sexual Orientation Straight 06/28/2021 10 :21 AM CDT documented as of this encounter Last Filed Vital Signs Vital Sign Reading Time Taken Comments Blood Pressure 110/60 02/10/2024 1:48 PM CDT Pulse 69 02/10/2024 1:48 PM CDT Temperature - - Respiratory Rate - - Oxygen Saturation 97% 02/10/2024 1:48 PM CDT Inhaled Oxygen Concentration - - Weight 122.6 kg (270 lb 3.2 oz) 02/10/2024 1:48 PM CDT Height 182.9 cm (6') 02/10/2024 1:48 PM CDT Body Mass Index 36.65 02/10/2024 1:48 PM CDT documented in this encounter Progress Notes * Dale Shahid MD - 02/10/2024 1:45 PM CDT Reason for Visit: Coronary Artery Disease (annual) History of Present Illness: Mr. Zhang is a 68 year old male with a PMH significant for CAD with NSTEMI (coronary angiography 10/14/20 with 99% mid circumflex disease s/p 3.5x38 mm Resoluted TAWANNA, 40% mid LAD disease, normal leftmain and RCA), dyslipidemia (over 20 years), mild aortic insufficiency, obesity class II, CORIN on CPAP machine, hypothyroidism, osteoarthritis and nephrolithiasis who presents for a follow up visit. He is recovering from his right middle finger trigger finger surgery about 3 weeks ago. He goes walking for at least 2 miles for 30 minutes at least 4 times/week. They also walk in the grocery storeson other days. No chest discomfort, dyspnea on exertion, edema or orthopnea. He volunteers with different groups which keep him busy. Recommendations and Plan: CAD with NSTEMI: S/p TAWANNA to the mid circumflex 10/14/20, has known 40% mid LAD disease per coronary angiography 10/14/20. Completed dual antiplatelet therapy with aspirin 81mg and ticagrelor 90mg bid forat least 12 months though 10/2021 due to acute coronary syndrome, continue aspirin lifelong. LDL 58 mg/dL on 01/27/24 after adding ezetimibe 10mg qd to atorvastatin 80mg qhs for goal LDL <55mg/dL. Echo 11/18/20 with normal LV systolic function 60-65%, mild aortic regurgitation, indeterminate diastolic function. Continue carvedilol 3.125mg bid. Valsartan was discontinued per his wishes since he had a normal LVEF at the time of the NSTEMI. Continue his physical activity and dietary changes. He has completed cardiac rehabilitation. Continue CAD risk factor modification. Dyslipidemia: LDL 58 mg/dL on 01/27/24 after adding ezetimibe 10mg qd to atorvastatin 80mg qhs for goal LDL <55mg/dL. Continue lifestyle modification. Mild aortic insufficiency: Last echo 11/17/20. Well controlled BP, follow up echo in 3 years (now). Prediabetes: A1c 5.8 on 09/07/22, 6.1 on . Continue lifestyle modification including cutting down on carbohydrates and increasing exercise. Obesity class II: Continue lifestyle modification, consider GLP-1 agonists or laparoscopic sleeve gastrectomy. Follow up in 12 months. Medications: Current Outpatient Medications: amoxicillin (AMOXIL) 500 [...] artery disease) COVID-19 vaccine administered 2020 Pfizer Hypercholesterolemia Hypothyroidism, unspecified Influenza vaccine refused 12/13/2020 Kidney stones NSTEMI (non-ST elevated myocardial infarction) ([facility]) Obesity, unspecified Prediabetes Trigger finger right middle finger Past Surgical History: Procedure Laterality Date CARDIAC STENTS 10/14/2020 HAND SURGERY Right 01/17/2024 Middle finger trigger release by Dr. 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) Smokeless tobacco: Never Vaping Use Vaping status: Never Used Substance Use Topics Alcohol use: Not Currently Comment: occasional glass of wine Drug use: Never Family History Problem Relation Name Age of Onset Diabetes Mother Shantal Zhang Heart Disease Father Rui Zhang Open Heart Father Riu Zhang Diabetes Brother Greyson Gongoraerer Heart Disease Brother Greyson Gongoraerer Kidney Disease Brother Greyson Gongoraerer Other (cardiac stent) Brother Greyson Wellsr No Known Problems Daughter No Known Problems Son No Known Problems Maternal Aunt No Known Problems Maternal Uncle No Known Problems Paternal Aunt No Known Problems Paternal Uncle No Known Problems Maternal Grandmother No Known Problems Maternal Grandfather Heart Attack Paternal Grandmother Heart Attack Paternal Grandfather No Known Problems Other Family Status Relation Name Status Mother Shantal Wellsr Father Rui Gongoraerer Brother Greyson Wellsr (Not Specified) Daughter (Not Specified) Son (Not Specified) MAunt (Not Specified) MUncle (Not Specified) PAunt (Not Specified) PUncle (Not Specified) MGM (Not Specified) MGF (Not Specified) PGM (Not Specified) PGF (Not Specified) Other (Not Specified) No partnership data on file Review of Systems Constitutional: Negative for recent unintentional weight gain, recent unintentional weight loss andnew or significant fatigue. HENT: Negative for new or significant hearing loss. Eyes: Negative for blurred vision and double vision. Respiratory: Negative for cough, new or significant shortness of breath and snoring. Cardiovascular: See HPI. Negative for chest pain, palpitations, orthopnea, leg swelling and PND. Gastrointestinal: Negative for heartburn, nausea, vomiting, blood in stool and melena. Genitourinary: Negative for dysuria. Musculoskeletal: Negative for myalgias and new or worsening joint stiffness/pain. Skin: Negative for rash. Neurological: Negative for tingling/numbness and focal weakness. Endo/Heme/Allergies: Negative for new or significant bruising/bleeding and polydipsia. Psychiatric/Behavioral: Negative for depression and new or significant memory loss. Vitals: 02/10/24 1348 BP: 110/60 Pulse: 69 Weight: 122.6 kg (270 lb 3.2 oz) Height: 1.829 m (6') Body mass index is 36.65 kg/m??. Cardiac Exam Rate/Rhythm: Normal rate and regular rhythm. PMI: PMI is not displaced. Pulses: Carotid pulses are 2+ on the right side and 2+ on the left side. Radial pulses are 2+ on the right side and 2+ on the left side. Dorsalis pedis pulses are 2+ on the right side and 2+ on the left side. Posterior tibial pulses are 2+ on the right side and 2+ on the left side. Heart Sounds: Normal heart sounds. Normal S1 sounds. Normal S2 sounds. No gallop present. No S3. NoS4. Murmurs: No murmur present Negative for edema. Physical Exam Constitutional: No distress. Healthy Appearance. HENT: Oropharynx clear. Eyes: Conjunctivae normal. Neck: Neck supple. No JVD. Abdomen: Abdomen soft. Bowel sounds normal. No tenderness. No mass. Pulmonary: Effort normal. Breath sounds normal. No wheezes. Skin: Warm. No rash. No cyanosis. No clubbing. No xanthoma. Musculoskeletal: No kyphosis. Normal ROM. Neurological: Alert. Oriented x 3. Appropriate mood and affect. Normal motor skills. Normal gait. Comments: Diagnoses/Impression: 1. CAD in [place] artery 2. Dyslipidemia 3. Obesity, Class II, BMI 35-39.9 4. Mild aortic regurgitation 5. Prediabetes Referring Provider: No ref. provider found PCP: KHUSHBU MONET documented in this encounter Plan of Treatment Upcoming Encounters Date Type Department Care Team (Late st Contact Info) Description 08/05/2024 10:00 AM CDT Office Visit [facility] Family & Internal Medicine 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 Office Visit [facility] [address] [place] [address] Dale Shahid MD [facility], [address] [place] [address] documented as of this encounter Visit Diagnoses Diagnosis CAD in [place] artery- Primary Coronary atherosclerosis of [place] coronary artery Dyslipidemia Other and unspecified hyperlipidemia Obesity, Class II, BMI 35-39.9 Obesity, unspecified Mild aortic regurgitation Aortic valve disorders Prediabetes Other abnormal glucose documented in this encounter Additional Health Concerns Assessment Noted Time PHQ-9 Depression Total Score: 0 12/14/19 21 9:36 AM CDT documented as of this encounter Care Teams Support Architect Relationship Specialty [place] [address] [place] [address] PCP - General Physician Manager [employer] Medical 06/25/23 documented as of this encounter
--- OUTSIDE RECORDS SUMMARY | 2024-04-11 05:34 | XMS_ITS | Encounter Summary ---
Author Organization [facility] Address [address] [place] [address]. 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 Sexual Orientation Straight 06/28/2021 10 :21 AM CDT documented as of this encounter Plan of Treatment Upcoming Encounters Date Type Department Care Team (Late st Contact Info) Description 08/05/2024 10:00 AM CDT Office Visit [facility] Family & Internal Medicine [facility] [id number] [place], [place] [phone] [place] [address] [place] [address] 02/15/2025 10:45 AM ACID PATROLLER Office Visit [facility] [address] [place], [place] [phone] Dale Shahid MD [facility], [address] [place] [address] documented as of this encounter Visit Diagnoses Not on filedocumented in this encounter Additional Health Concerns Assessment Noted Time PHQ-9 Depression Total Score: 0 12/14/19 21 9:36 AM CDT documented as of this encounter Care Teams Box Storage Worker Relationship Specialty [place] [address] [place] [address] PCP - General Physician Movie Actor Medical 06/25/23 documented as of this encounter
--- OUTSIDE RECORDS SUMMARY | 2024-04-11 05:34 | XMS_ITS | Encounter Summary ---
Author Organization [facility] Address [address] [place] [address]. 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 Sexual Orientation Straight 06/28/2021 10 :21 AM CDT documented as of this encounter Plan of Treatment Upcoming Encounters Date Type Department Care Team (Late st Contact Info) Description 08/05/2024 10:00 AM CDT Office Visit [facility] Family [facility] Internal Medicine [facility] [address] [place] [address] [place] [address] [place] [address] 02/15/2025 10:45 AM SOCCER COACH Office Visit [facility] [address] [place] [address] Dale Shahid MD [facility], [address] [place] [address] documented as of this encounter Visit Diagnoses Not on filedocumented in this encounter Additional Health Concerns Assessment Noted Time PHQ-9 Depression Total Score: 0 12/14/19 21 9:36 AM CDT documented as of this encounter Care Teams Police Lieutenant Precinct Relationship Specialty [place] [address] [place] [address] PCP - General Physician Assembler [employer] Medical 06/25/23 documented as of this encounter
--- OUTSIDE RECORDS SUMMARY | 2024-04-11 05:34 | XMS_ITS | Encounter Summary ---
Author Organization [facility] Address [address] [place] [address]. 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 Sexual Orientation Straight 06/28/2021 10 :21 AM CDT documented as of this encounter Progress Notes * Ally Day MA - 07/30/2023 1:15 PM CDT Preventive Screenings: Breast Cancer Screening: N/A Notes: Colorectal Cancer Screening: Up to Date Notes: 11/29/2014 Diabetic Eye Exam: N/A Notes: Falls Risk Screening: Needs Follow Up Notes: Tobacco Cessation: Needs Follow Up Notes: needs assessed for 2023 Labs: BMP/CMP: N/A Notes: Hemoglobin A1c: N/A Notes: Lipid: N/A Notes: Urine Albumin-Creatinine Ratio: N/A Notes: Immunizations: Pneumococcal: Needs Follow Up Notes: Shingles: Needs Follow Up Notes: documented in this encounter Plan of Treatment Upcoming Encounters Date Type Department Care Team (Late st Contact Info) Description 08/05/2024 10:00 AM CDT Office Visit [facility] Family & Internal Medicine - [place] [address] [place] [address] [place] [address] [place], [place] [id number] 02/15/2025 10:45 AM INSTRUCTION ASSISTANT PRINCIPAL Office Visit [facility] [address] [place] [address] Dale Shahid MD [facility], [address] [place] [address] documented as of this encounter Visit Diagnoses Not on filedocumented in this encounter Additional Health Concerns Assessment Noted Time PHQ-9 Depression Total Score: 0 12/14/19 21 9:36 AM CDT documented as of this encounter Care Teams Nature Photographer Relationship Specialty [place] [address] [place], [place] [id number] PCP - General Physician Ammonia Distiller Medical 06/25/23 documented as of this encounter
--- OUTSIDE RECORDS SUMMARY | 2024-04-11 05:34 | XMS_ITS | Encounter Summary ---
Author Organization [facility] Address [address] [place] [address]. 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 Sexual Orientation Straight 06/28/2021 10 :21 AM CDT documented as of this encounter Plan of Treatment Upcoming Encounters Date Type Department Care Team (Late st Contact Info) Description 08/05/2024 10:00 AM CDT Office Visit [facility] Family & Internal Medicine [facility] [address] [place], [place] [phone] [place] [address] [place] [address] 02/15/2025 10:45 AM BALLET MASTER/MISTRESS Office Visit [facility] [address] [place], [place] [phone] Dale Shahid MD [facility], [address] [place] [address] documented as of this encounter Visit Diagnoses Not on filedocumented in this encounter Additional Health Concerns Assessment Noted Time PHQ-9 Depression Total Score: 0 12/14/19 21 9:36 AM CDT documented as of this encounter Care Teams Hat Braider Relationship Specialty [place] [address] [place] [address] PCP - General Physician Sourcing Specialist Medical 06/25/23 documented as of this encounter
--- OUTSIDE RECORDS SUMMARY | 2024-04-11 05:34 | XMS_ITS | Encounter Summary ---
Author Organization [facility] Address [address] [place] [address]. [place], [place] [address] [place] [address] Care Team Providers Care Spring Fitter Name Role Phone Jennietemi Kacey CARABALLO Primary Care Provider [phone] Reason for Visit * Reason Comments Coronary Artery Disease Aortic Valve Disorder Lipids Encounter Details Date Type Department Care Team (Late st Contact Info) Description 02/06/2023 9:15 AM CDT Office Visit [facility] [address] [place] [address] Dale Shahid MD [facility], [address] [place] [address] Coronary Artery Disease; Aortic Valve Disorder; Lipids Social History Tobacco Use Types Packs/Day Years [...] CDT Gender Identity Male 06/12/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 Sexual Orientation Straight 06/28/2021 10 :21 AM CDT documented as of this encounter Last Filed Vital Signs Vital Sign Reading Time Taken Comments Blood Pressure 120/70 02/06/2023 9:06 AM CDT Pulse 64 02/06/2023 9:06 AM CDT Temperature - - Respiratory Rate - - Oxygen Saturation - - Inhaled Oxygen Concentration - - Weight 122.9 kg (271 lb) 02/06/2023 9:06 AM CDT Height 182.9 cm (6') 02/06/2023 9:06 AM CDT Body Mass Index 36.75 02/06/2023 9:06 AM CDT documented in this encounter Progress Notes * Dale Shahid MD - 02/06/2023 9:15 AM CDT Reason for Visit: Coronary Artery Disease, Aortic Valve Disorder, and Lipids History of Present Illness: Mr. Zhang is a 67 year old male with a PMH significant for CAD with NSTEMI (coronary angiography 10/14/20 with 99% mid circumflex disease s/p 3.5x38 mm Resoluted TAWANNA, 40% mid LAD disease, normal leftmain and RCA), dyslipidemia (over 20 years), mild aortic insufficiency, obesity class II, CORIN on CPAP machine, hypothyroidism, osteoarthritis and nephrolithiasis who presents for a follow up visit. He is here with his . He is doing very well. They walk for 30 minutes at least 4 times/week. They also walk in the grocery stores on other days. He is doing well after his left knee replacement but cannot squat. No chest discomfort, dyspnea on exertion, edema or orthopnea. He volunteers with different groups which keep him busy. Recommendations and Plan: 1. CAD with NSTEMI: S/p TAWANNA to the mid circumflex 10/14/20, has known 40% mid LAD disease per coronary angiography 10/14/20. Completed dual antiplatelet therapy with aspirin 81mg and ticagrelor 90mg bid for at least 12 months though 10/2021 due to acute coronary syndrome, continue aspirin lifelong. LDL 55 mg/dL on 01/28/23 after adding ezetimibe 10mg qd to atorvastatin 80mg qhs for goal LDL <70mg/dL. Echo 11/18/20 with normal LV systolic function 60-65%, mild aortic regurgitation, indeterminate diastolic function. Continue carvedilol 3.125mg bid. Valsartan was discontinued per his wishes since hehad a normal LVEF at the time of the NSTEMI. Continue his physical activity and dietary changes. Rejis completed cardiac rehabilitation. Continue CAD risk factor modification. 2. Dyslipidemia: LDL 55 mg/dL on 01/28/23 after adding ezetimibe 10mg qd to atorvastatin 80mg qhs, now at goal LDL <70mg/dL. Continue lifestyle modification. 3. Mild aortic insufficiency: Last echo 11/17/20. Well controlled BP, follow up echo in 3 years. 4. Prediabetes: A1c 5.8 on 09/07/22. Continue lifestyle modification including cutting down on carbohydrates and increasing exercise. Follow up in 12 months. Medications: Current Outpatient Medications: ASPIRIN EC 81 MG tablet, Take 1 tablet (81 mg total) by mouth daily., Disp: , Rfl: atorvastatin (LIPITOR) 80 MG tablet, Take 1 tablet (80 mg total) by mouth nightly at bedtime., Disp: 90 tablet, Rfl: 3 carvedilol (COREG) 3.125 MG tablet, TAKE 1 TABLET BY MOUTH TWICE A DAY, Disp: 180 tablet, Rfl: 1 Coenzyme Q10 (COQ10) 100 MG Cap, Take by mouth daily., Disp: , Rfl: ezetimibe (ZETIA) 10 MG tablet, TAKE 1 TABLET BY MOUTH EVERY DAY, Disp: 90 tablet, Rfl: 1 levothyroxine (SYNTHROID) 125 MCG tablet, TAKE 1 TABLET BY MOUTH EVERY MORNING, Disp: 90 tablet, Rfl: 0 meloxicam (MOBIC) 15 MG tablet, Take 1 tablet (15 mg total) by mouth daily., Disp: , Rfl: Multiple Vitamins-Minerals (CENTRUM SILVER) Tab, Take 1 [...] Smoking status: Never 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 Vitals: 02/06/23 0906 BP: 120/70 Pulse: 64 Weight: 122.9 kg (271 lb) Height: 1.829 m (6') Body mass index is 36.75 kg/m??. Cardiac Exam Rate/Rhythm: Normal rate and [...] Normal gait. Comments: Diagnoses/Impression: 1. CAD in [place] artery 2. Dyslipidemia 3. Mild aortic regurgitation 4. Prediabetes Referring Provider: No ref. 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 Office Visit [facility] [address] [place] [address] Dale Shahid MD [facility], [address] [place] [address] documented as of this encounter Visit Diagnoses Diagnosis CAD in [place] artery- Primary Coronary atherosclerosis of [place] coronary artery Dyslipidemia Other and unspecified hyperlipidemia Mild aortic regurgitation Aortic valve disorders Prediabetes Other abnormal glucose documented in this encounter Additional Health Concerns Assessment Noted Time PHQ-9 Depression Total Score: 0 12/14/19 21 9:36 AM CDT documented as of this encounter Care Teams Spring Fitter Relationship Specialty [place] [address] [address], [address] [place] [address] PCP - General Nurse Practitioner Family 07/20/2206/13 documented as of this encounter
--- OUTSIDE RECORDS SUMMARY | 2024-04-11 05:34 | XMS_ITS | Encounter Summary ---
Author Organization [facility] Address [address] [place] [address]. [place] [address] [place] [address] Care Team Providers Care Drawing Frame Tender Name Role Phone Amado Mathew Primary Care Provider [phone] Reason for Referral * Imaging (Routine) - Closed Specialty Diagnoses / Procedures Referred By Emiliano gomez Referred To Contact RADIOLOGY Diagnoses Mild aortic regurgitation Procedures USE ECHOCARDIOGRAM Dale Shahid MD [facility], [address] [place] [address] Phone: tel: fax: Referral ID Status Reason Start Date Expiration Date Visits Re quested Visits Authorized [id number] Closed 02/11/2024 03/13/2025 1 1 Encounter Details Date Type Department Care Team (Late st Contact Info) Description 02/11/2024 Orders Only [facility], [address] [place], [place] [id number] Dale Shahid MD [facility], [address] [place], [place] [id number] Social History Tobacco Use Types Packs/Day Years [...] CDT Gender Identity Male 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 Sexual Orientation Straight 06/28/2021 10 :21 AM CDT documented as of this encounter Plan of Treatment Upcoming Encounters Date Type Department Care Team (Late st Contact Info) Description 08/05/2024 10:00 AM CDT Office Visit [facility] Family & Internal Medicine [facility] [address] [place] [phone] Amado Mathew [place] [id number] [place] [address] 02/15/2025 10:45 AM INTERNAL GRINDER Office Visit [facility] [address] [place] [address] Dale Shahid MD [facility], [address] [place] [address] documented as of this encounter Results * USE ECHOCARDIOGRAM (03/05/2024 10:26 AM INTERNAL GRINDER) Anatomical Region Laterality Modality Cardiac Echocardiogram 03/05/2024 9:57 AM INTERNAL GRINDER Narrative 03/06/2024 11:37 AM INTERNAL GRINDER ?Echocardiography Report Pat.Name: ??RADHA ZHANG ? Pat.ID: ?[id number] ? St.Date: ?? 03/05/2024 ? Refer.MD: ??[id number] JUAN DIEGO Shi ? EWDPROV ?EWDPROV Exam Time: 9:57:00 AM [...] ? Right Ventricle ?21 mm ?? Major Niles ?76 mm ?MMODE TA ?? Tricuspid Annul ??24.3 mm ? <Electronic Signature> 03/06/2024 11:37 AM Dale Shahid M.D. Procedure Note Dale Shahid MD - 03/06/2024 Echocardiography Report Pat.Name: RADHA ZHANG [facility].ID: [id number] .Date: 03/05/2024 : [id number] JUAN DIEGO Shi EWDPROV EWDPROV Exam Time: 9:57:00 AM Study Type:ECHO WITH CARDIAC DOPPLER COMP Height: 72 in Weight: 270 lb BSA: 2.42 m2 Age: 7 1955,68Y Sex: M BP: 149/80 HR: 61 bpm Sonogrphr: James. Manriquez [facility] Pat. Stat.:Outpatient Reason for Study:Aortic insufficiency Procedures: [...] 31 mm Right Ventricle 21 mm Major Niles 76 mm MMODE TA Tricuspid Annul 24.3 mm <Electronic Signature> 03/06/2024 11:37 AM Dale Shahid M.D. Dale Shahid MD ECHO Final Res ult documented in this encounter Visit Diagnoses Diagnosis Mild aortic regurgitation- Primary Aortic valve disorders Mild aortic regurgitation Aortic valve disorders documented in this encounter Additional Health Concerns Assessment Noted Time PHQ-9 Depression Total Score: 0 12/14/19 21 9:36 AM CDT documented as of this encounter Care Teams Drawing Frame Tender Relationship Specialty [place] [address] [place] [address] PCP - General Physician [facility] 06/25/23 documented as of this encounter
--- OUTSIDE RECORDS SUMMARY | 2024-04-11 05:34 | XMS_ITS | Encounter Summary ---
Author Organization [facility] Address [address] [place] [address]. [place] [address] [place] [address] Care Team Providers Care Cotton Seed Culler Name Role Phone Amado Mathew Primary Care Provider [phone] Reason for Visit * Reason Comments Postop Followup Right middle trigger finger release DOS: 01/17/24 Encounter Details Date Type Department Care Team (Late st Contact Info) Description 01/23/2024 10:40 AM CDT Office Visit [facility] Orthopedic & Sports Medicine - [place] [address] [place] [address] Jose Hackett NP [address] 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 Sexual Orientation Straight 06/28/2021 10 :21 AM CDT documented as of this encounter Last Filed Vital Signs Vital Sign Reading Time Taken Comments Blood Pressure 138/87 01/23/2024 10:28 AM CDT Pulse 85 01/23/2024 10:28 AM CDT Temperature 36.7 ??C (98.1 ??F) 01/23/2024 1 0:28 AM CDT Respiratory Rate - - Oxygen Saturation 99% 01/23/2024 10: 28 AM CDT Inhaled Oxygen Concentration - - Weight 120.1 kg (264 lb 12.4 oz) 2023 10:28 AM CDT Height 182.9 cm (6') 01/23/2024 10:28 AM CDT Body Mass Index 35.91 01/23/2024 10:28 AM CDT documented in this encounter Patient Instructions * Patient Instructions* Jose Hackett NP - 01/23/2024 10:40 AM CDT Post-Operative Instructions [facility] Orthopedics and Sports Medicine Hand Surgery Congratulations on completing the first week after your surgery. Your dressing has been removed andyou are well on the way to recovery after your surgery. General Information You may be achy and sore for a couple of weeks after your surgery. The bruising and swelling that you notice will gradually resolve. Here is a reminder of your post-operative instructions. Surgery: right open middle trigger finger release on 01/17/2024 At your appointment on 01/23/2024 Your dressing was removed Your sutures were removed Steri-strips were placed Over the next few weeks, it is especially important to take care of yourself. You may allow clean, running water from the faucet to contact your surgical site. This means that you may take a shower and wash your hair. Please pat the steri-strips dry. Please do not submerge your surgical site in standing water for the next 3 - 5 days. This means youshould not wash dishes, take a bath, use a hot tub or swim during this time. Allow the steri-strips to fall off. They will begin to peel up from the edges. You may cut off the ???tails?? , but please do not pull the steri-strips off your wound. Activity Please continue to move your thumb, fingers and wrist throughout the day. You have declined a referral to Occupational Therapy. If you would like a referral, please call theoffice. Avoid local trauma or excessive pressure After the Steri-Strips fall off please perform scar massage as you were directed in the office 4 times daily Lifting You may begin lifting light objects and gradually increase the amount of weight that you lift. If you need to use pain medications to lift things, you are lifting too much weight. Call our office at [phone] if you notice any signs of infection. This includes if you develop a fever, or if your surgical site becomes red, swollen, more painful or if you notice drainage. documented in this encounter Progress Notes * Jose Hackett NP - 01/23/2024 10:40 AM CDT Images from the original note were not included. OFFICE VISIT SUBJECTIVE Reason for Visit: Postop Followup (Right middle trigger finger release DOS: 01/17/24) History of Present Illness: Patient is here for first post op evaluation 1 week s/p right open middle trigger finger release byDr. Zachery Guzman on 01/17/2024. He is accompanied by his Melanie. Patient has no new complaints or acute events to report and describes uneventful week with mild post-op pain and minimal to no need for pain meds. Denies fevers, chills. Has resume ADLs with minimal limitations. Patient reports resolution of pre-op painful clicking/locking upon flexion and extension and improved ROM. Reports no interval sensorimotor deficits. Patient verbalizes satisfaction with the surgical procedure. ROS: Constitutional: Negative for chills and fever. [...] confusion. History: Past Medical History: Diagnosis Date Arthritis CAD (coronary artery disease) COVID-19 vaccine administered 2020 [employer] Hypercholesterolemia Hypothyroidism, unspecified Influenza vaccine refused 12/13/2020 Kidney stones NSTEMI (non-ST elevated myocardial infarction) ([facility]) Obesity, unspecified Prediabetes Trigger finger right middle finger Past Surgical History: Procedure Laterality Date CARDIAC STENTS 10/14/2020 HAND SURGERY Right 01/17/2024 Middle finger trigger release by Dr. 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 Physical Exam: Physical Exam Constitutional: He [...] affect. Upper Extremity Exam: Right Upper Extremity Hand: Dressings removed. Incision line cleaned with alcohol. Sutures removed without difficulty. Surgicalincision appears well approximated, clean and dry, without erythema, warmth, discharge, induration.Mild local incisional tenderness and swelling with minimal bruising. No skin breakdown or pressure points from dressings. All muscle compartments soft, no joint effusion present, no deformities noted, no masses present, no arthritic changes. No crepitus hand/fingers on ROM testing, no deformities of hand or fingers Mastisol and steri strips applied. Good thumb opposition and full finger, thumb and wrist AROM. Able to form a composite fist. No interval neurological deficits compare to pre-op baseline. Capillary refill < 2 seconds. Recent Imaging: No image results found. ASSESSMENT Radha was seen today for postop followup. Diagnoses and all orders for this visit: Trigger middle finger of right hand Postoperative state PLAN Treatment/Counselling: DISCUSSED UNEVENTFUL POST OP COURSE WITH GOOD OUTCOMES AND PROGNOSIS GIVEN CLINICAL COURSE THUS FAR. Instructed to not submerge the surgical site in water for the next 3 - 5 days, however may shower with clean running water from the tap, and afterwards, pat the area dry. Instructed to not remove steri-strips, but instead to allow them to fall off. Continue light activity with gradual increase in activity level and weight bearing as tolerated. Recommendations for scar massage and ROM exercises tomaximize functional outcomes. Avoid local trauma or excessive pressure. Discussed signs of infection and need to return for assessment if these occur. Patient respectfully declined OT referral Post op instructions provided verbally and in writing. All questions were answered to patient's satisfaction. Patient voices understanding and agreement. Acknowledgment of shared decision making. Return to the clinic as needed. JOSE HACKETT NP 01/23/2024 Cc. KHUSHBU MONET No ref. 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 MANAGER Office Visit [facility] [address] [place] [address] Dale Shahid MD [facility] [address] [place], [place] [phone] documented as of this encounter Visit Diagnoses Diagnosis Trigger middle finger of right hand- Primary Trigger finger (acquired) Postoperative state Other postprocedural status documented in this encounter Additional Health Concerns Assessment Noted Time PHQ-9 Depression Total Score: 0 12/14/19 21 9:36 AM CDT documented as of this encounter Care Teams Cotton Seed Culler Relationship Specialty [place] [address] [place] [address] PCP - General Physician [facility] 06/25/23 documented as of this encounter
--- OUTSIDE RECORDS SUMMARY | 2024-04-11 05:35 | XMS_ITS | Encounter Summary ---
Author Organization [facility] Address [address] [place] [address]. 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 Sexual Orientation Straight 06/28/2021 10 :21 AM [...] A DAY 180 tablet 1 10/01/2022 3 ezetimibe (ZETIA) 10 MG tablet TAKE [...] Description 08/05/2024 10:00 AM CDT Office Visit [facility] Family & Internal Medicine [facility] [address] [place] [address] [place] [address] [place], [place] [phone] 02/15/2025 10:45 AM DROP WORKER Office Visit [facility] [place] [address] [place] [address] Dale Shahid MD [facility] [address] [place] [address] documented as of this encounter Procedures Procedure Name Priority Date/Time Associated Diagnosis Comments LIPID PANEL Routine 01/28/2023 8:01 AM CDT Dyslipidemia documented in this encounter Results * LIPID PANEL (01/28/2023 8:01 AM CDT) CHOLESTEROL 117 <200.0 MG/DL 01/28/2023 9:24 AM CDT [facility] TRIGLYCERIDES 69 <150 MG/DL 01/28/2023 9:24 AM T [facility] HDL 48 >40.0 MG/DL 01/28/2023 9:24 AM T [facility] LDL (CALCULATED) 55 <100 MG/DL 01/29/20 9:24 AM T [facility] NON HDL CHOLESTEROL 69 <130 MG/DL 01/28 9:24 AM T [facility] CHOL/HDL RATIO 2.4 0.0 - 4.5 01/28/2023 9:24 AM T [facility] VLDL CALCULATION 14 5 - 55 MG/DL 01/28/2023 9:24 AM T [facility] LIPID INTERPRETATION 01/28/2023 9:24 AM T [facility] Comment: NIH CONCENSUS REPORT RECOMMENDATIONS: ?ADULT ?CHILD ??LOW RISK: ?CHOLESTEROL ? <200 ? <170 ?TRIGLYCERIDE ?<150 ?--- ?HDL ? >=60 ?--- ?LDL ? <100 ? <110 ??BORDERLINE: ?CHOLESTEROL ? 200-239 ?? 170-199 ?TRIGLYCERIDE ?150-199 ? --- ?HDL ?40-59 ?--- ?LDL ? 100-159 ?? 110-129 ??HIGH RISK: ?CHOLESTEROL ? >=240 ?>=200 ?TRIGLYCERIDE ?>=200 ? --- ?HDL ?<40 ?--- ?LDL ? >=160 ?>=130 01/28/2023 8:01 AM CDT Dale Shahid MD LABORATORY Final Res ult Performing Organization Address City/State/[facility] Co de Phone Number [facility] [address] [place] [address], documented in this encounter Visit Diagnoses Diagnosis Dyslipidemia Other and unspecified hyperlipidemia documented in this encounter Additional Health Concerns Assessment Noted Time PHQ-9 Depression Total Score: 0 12/14/19 21 9:36 AM CDT documented as of this encounter Care Teams Radio Reporter Relationship Specialty Start Date End Date Kacey Lafleur, SEXUAL HEALTH PHYSICIAN [address], [address] [place] [address] PCP - General Nurse Practitioner Family 07/20/2206/13 documented as of this encounter
--- OUTSIDE RECORDS SUMMARY | 2024-04-11 05:35 | XMS_ITS | Encounter Summary ---
Author Organization [facility] Address [address] [place] [address]. [place], [place] [address] [place] [address] Care Team Providers Care Mussel Opener Name Role Phone Paul Cain MD Primary Care Provider U navailable Reason for Visit * Reason Comments Coronary Artery Disease Aortic Valve Disorder Lipids Encounter Details Date Type Department Care Team (Late st Contact Info) Description 08/09/2021 10:15 AM CDT Office Visit [place] [facility] [address] [place] [address] Dale Shahid MD [facility], [address] [place], [place] [id number] Coronary Artery Disease; Aortic Valve Disorder; Lipids Social History Tobacco Use Types Packs/Day Years Used Date Smoking Tobacco: Never Smokeless Tobacco: Never Alcohol Use Standard Drinks/Week Comments Yes 0 (1 standard drink = 0.6 oz pur e alcohol) occasional 2-3 weeks PHQ-2 Answer Date Recorded PHQ-2 Score - If the patient scores above 3, please move on to questions 3-9 0 12/13/2020 Sex and Gender Information Value Date Recorded Sex Assigned at Not on file Legal Sex Male 7:33 PM CDT Gender Identity Male 06/12/2021 5:16 AM ECONOMIC HISTORY TEACHER Sexual Orientation Straight 06/28/2021 10 :21 AM CDT COVID-19 Exposure Response Date Recorded In the last 10 days, have yo u been in contact with someone who was confirmed or suspected to have Coronavirus/COVID-19? No / Unsure 08/09/2021 9:56 AM CDT documented as of this encounter Last Filed Vital Signs Vital Sign Reading Time Taken Comments Blood Pressure 120/70 08/09/2021 9:57 AM CDT Pulse 61 08/09/2021 9:57 AM CDT Temperature - - Respiratory Rate - - Oxygen Saturation - - Inhaled Oxygen Concentration - - Weight 124.3 kg (274 lb) 08/09/2021 9:57 AM CDT Height 182.9 cm (6') 08/09/2021 9:57 AM CDT Body Mass Index 37.16 08/09/2021 9:57 AM CDT documented in this encounter Progress Notes * Dale Shahid MD - 08/09/2021 10:15 AM CDT Reason for Visit: Coronary Artery Disease, Aortic Valve Disorder, and Lipids History of Present Illness: Mr. Zhang is a 65 year old male with a PMH significant for??CAD with NSTEMI (coronary angiography10/14/20 with 99% mid circumflex disease s/p 3.5x38 mm Resoluted TAWANNA, 40% mid LAD disease, normal left main and RCA), dyslipidemia (over 20 years), mild aortic insufficiency, obesity class II,??CORIN??onCPAP machine, hypothyroidism and nephrolithiasis who presents for a follow up visit. [place]. He and his have been doing this more frequently since he retired. He has pain in both knees and it is easier to walk in the waterthan on the side walks. They hope to go to [place] some time after the pandemic settles down. No chest pain or discomfort on exertion. No dyspnea on exertion. No edema, orthopnea or PND. Recommendations and Plan: 1. CAD with NSTEMI: S/p TAWANNA to the mid circumflex 10/14/20. He has known 40% mid LAD disease. Continue aspirin 81mg and ticagrelor 90mg bid for at least 12 months though 10/2021 due to acute coronary syndrome then stop ticagrelor and continue aspirin lifelong. On atorvastatin 80mg qhs.??Repeat lipid panel 11/01/20 with LDL 66 mg/dL which is at goal <70 mg/dL. Echo 8/6/21 with normal LV systolic function 60-65%, mild aortic regurgitation, indeterminate diastolic function. Continue valsartan??40mgqd and carvedilol 3.125mg bid though the ARB can be discontinued per his wishes since he had a normal LVEF at the time of the NSTEMI.??Continue his physical activity and dietary changes. Completed cardiac rehabilitation. ?? 2. Dyslipidemia: LDL 110 in July 2020, down to 84 in August after they resumed exercise. Lipid panel 11/01/20 with LDL 66 mg/dL which is at goal LDL <70mg/dL. Continue high intensity atorvastatin 80mg qhs. ?? 3. Mild aortic insufficiency: Well controlled BP, follow up echo in 3-5 years. Follow up in 6 months. Medications: Current Outpatient Medications: ??? ASPIRIN EC 81 MG tablet, Take 81 mg by mouth daily., Disp: , Rfl: ??? atorvastatin 80 MG tablet, Take 80 mg by mouth nightly at bedtime., Disp: , Rfl: ??? BRILINTA 90 MG tablet, Take 1 tablet (90 mg total) by mouth 2 (two) times daily., Disp: 180 tablet, Rfl: 3 ??? carvedilol 3.125 MG tablet, Take 1 tablet (3.125 mg total) by mouth 2 (two) times daily., Disp:180 tablet, Rfl: 1 ??? levothyroxine 125 MCG tablet, Take 1 tablet (125 mcg total) by mouth every morning., Disp: 90 tablet, Rfl: 1 ??? Multiple Vitamins-Minerals (CENTRUM SILVER) Tab, Take 1 tablet by mouth daily. , Disp: , Rfl: ??? nitroglycerin 0.4 MG SL tablet, Place 0.4 mg under the tongue., Disp: , Rfl: ??? potassium citrate CR 10 MEQ (1080 MG) tablet, Take 10 mEq by mouth 3 (three) times daily with meals. , Disp: , Rfl: ??? valsartan 40 MG tablet, Take 1 tablet (40 mg total) by mouth daily., Disp: 90 tablet, Rfl: 1 ??? vitamin D3, cholecalciferol, 75 MCG (3000 UT) Tab tablet, Take 3,000 Units by mouth daily., Disp: , Rfl: No Known Allergies Past Medical History: Diagnosis Date ??? CAD (coronary artery disease) ??? COVID-19 vaccine administered 2020 [employer] ??? Disease of thyroid gland ??? Hypercholesterolemia ??? Influenza vaccine refused 12/13/2020 ??? Kidney stones Past Surgical History: Procedure Laterality Date ??? CARDIAC STENTS 10/14/2020 ??? LITHOTRIPSY Social History Tobacco Use ??? Smoking status: Never Smoker ??? Smokeless tobacco: Never Used Vaping Use ??? Vaping Use: Never used Substance Use Topics ??? Alcohol use: Yes Comment: occasional 2-3 weeks ??? Drug use: No Family History Problem Relation Name Age of Onset ??? Diabetes Mother ??? Heart Disease Father ??? Open Heart Father ??? Diabetes Brother ??? Heart Disease Brother ??? Kidney Disease Brother ??? Other (cardiac stent) Brother ??? Heart Attack Paternal Grandmother ??? Heart Attack Paternal Grandfather Family Status Relation Name Status ??? Mother ??? Father ??? Brother (Not Specified) ??? PGM (Not Specified) ??? PGF (Not Specified) Review of Systems Constitutional: Negative [...] leg swelling and PND. Gastrointestinal: Negative for blood in stool and melena. Genitourinary: Negative for dysuria. Musculoskeletal: Negative for myalgias and new or worsening joint stiffness/pain. Skin: Negative for rash. Neurological: Negative for tingling/numbness and focal weakness. Endo/Heme/Allergies: Negative for new or significant bruising/bleeding and polydipsia. Psychiatric/Behavioral: Negative for depression and new or significant memory loss. Vitals: 08/09/21 0957 BP: 120/70 Pulse: 61 Weight: 124.3 kg (274 lb) Height: 6' (1.829 m) Body mass index is 37.16 kg/m??. Cardiac Exam Rate/Rhythm: Normal rate and [...] mass. Pulmonary: Effort normal. Breath sounds normal. Skin: Warm. No rash. No cyanosis. No clubbing. No xanthoma. Musculoskeletal: No kyphosis. Normal ROM. Neurological: Alert. Oriented x 3. Appropriate mood and affect. Normal motor skills. Normal gait. Comments: Diagnoses/Impression: 1. CAD in [place] artery 2. Dyslipidemia 3. Mild aortic insufficiency Referring Provider: No ref. provider found PCP: PAUL CAIN MD documented in this encounter Plan of Treatment Upcoming Encounters Date Type Department Care Team (Late st Contact Info) Description 08/05/2024 10:00 AM CDT Office Visit [facility] Family & Internal Medicine - [place] [phone] [place] [phone] [place]w [place] [id number] [place] [address] 02/15/2025 10:45 AM ECONOMIC HISTORY TEACHER Office Visit [facility] [address] [place] [address] Dale Shahid MD [facility], [address] [place] [address] documented as of this encounter Visit Diagnoses Diagnosis CAD in [place] artery- Primary Coronary atherosclerosis of [place] coronary artery Dyslipidemia Other and unspecified hyperlipidemia Mild aortic insufficiency Aortic valve disorders documented in this encounter Additional Health Concerns Assessment Noted Time PHQ-9 Depression Total Score: 0 12/14/19 9:36 AM CDT documented as of this encounter Care Teams Mussel Opener Relationship Specialty Start Date End Date Paul Cain MD PCP - General INTERNAL MEDICINE 12/13/20 07/19/22 documented as of this encounter
--- OUTSIDE RECORDS SUMMARY | 2024-04-11 05:35 | XMS_ITS | Encounter Summary ---
Author Organization [facility] Address [address] [place] [address]. [place], [place] [phone] [place] [address] Care Team Providers Care Work Measurement Engineer Name Role Phone Paul Mejia MD Primary Care Provider U bashirailable Reason for Visit * Reason Onset Date Comments Record Request 05/18/2022 Encounter Details Date Type Department Care Team (Late st Contact Info) Description 05/18/2022 Telephone [facility] Family & Internal Medicine [facility] [phone] [place] [phone] Paul Mejia MD Record Request Social History Tobacco Use Types Packs/Day Years Used Date Smoking Tobacco: Never Smokeless Tobacco: Never Alcohol Use Standard Drinks/Week Comments Not Currently 0 (1 standard drink = 0.6 oz pur e alcohol) occasional glass of wine PHQ-2 Answer Date Recorded PHQ-2 Score - If the patient scores above 3, please move on to questions 3-9 0 10/31/2021 Sex and Gender Information Value Date Recorded Sex Assigned at Not on file Legal Sex Male 7:33 PM CDT Gender Identity Male 06/12/2021 5:16 AM HEARING AID ASSEMBLY SUPERVISOR Sexual Orientation Straight 06/28/2021 10 :21 AM CDT documented as of this encounter Progress Notes * Ally Day MA - 05/18/2022 11:39 AM CST Received Colonoscopy dated 11/29/2014, faxed to provider office and saved to incoming folder. ING AID ASSEMBLY SUPERVISOR * Ally Day MA - 05/18/2022 10:51 AM CST Requested Colonoscopy from Bull ING AID ASSEMBLY SUPERVISOR documented in this encounter Plan of Treatment Upcoming Encounters Date Type Department Care Team (Late st Contact Info) Description 08/05/2024 10:00 AM CDT Office Visit [facility] Family & Internal Medicine - [place] [address] [place] [phone] [place] [address] [place] [address] 02/15/2025 10:45 AM HEARING AID ASSEMBLY SUPERVISOR Office Visit [facility] [address] [place] [address] Dale Shahid MD [facility], [address] [place] [address] documented as of this encounter Visit Diagnoses Not on filedocumented in this encounter Additional Health Concerns Assessment Noted Time PHQ-9 Depression Total Score: 0 12/14/19 21 9:36 AM CDT documented as of this encounter Care Teams Work Measurement Engineer Relationship Specialty Start Date End Date Paul Mejia MD PCP - General INTERNAL MEDICINE 12/13/20 07/19/22 documented as of this encounter
--- OUTSIDE RECORDS SUMMARY | 2024-04-11 05:35 | XMS_ITS | Encounter Summary ---
Author Organization [facility] Address [address] [place] [address]. [place], [place] [address] [place] [address] Care Team Providers Care Grain Picker Name Role Phone Paul Mejia MD Primary Care Provider U navailable Reason for Visit * Reason Onset Date Comments Lab Order 08/18/2021 Encounter Details Date Type Department Care Team (Late st Contact Info) Description 08/18/2021 Telephone [facility] Family & Internal Medicine [facility] [id number] [place] [phone] Paul Mejia MD Lab Order Social History Tobacco Use Types [...] CDT Gender Identity Male 06/12/2021 5:16 AM PRE SALES SYSTEMS ENGINEER Sexual Orientation Straight 06/28/2021 10 :21 AM CDT COVID-19 Exposure Response Date Recorded In the last 10 days, have yo u been in contact with someone who was confirmed or suspected to have Coronavirus/COVID-19? No / Unsure 08/09/2021 9:56 AM CDT documented as of this encounter Progress Notes * Kathy Pollard RN - 08/18/2021 1:55 PM CDT Labs order entered * Kathy Pollard RN - 08/18/2021 10:25 AM CDT Printed and routed to MD * Lorie Crane - 08/18/2021 9:41 AM CDT Radha called to schedule lab draw on 08/23/2021. He has orders in the chart from a Dr. Shahid, but wanting to come up to our floor as Dr. Keith said he was to have a blood draw. He mentionedhe was needing TSH, Lipid, CMP, PSA and what ever else is needed. Can you make sure orders are in chart for his appointment on 08/23/2021. documented in this encounter Plan of Treatment Upcoming Encounters Date Type Department Care Team (Late st Contact Info) Description 08/05/2024 10:00 AM CDT Office Visit [facility] Family & Internal Medicine - [place] [id number] [place] [phone] [place] [phone] [place] [address] 02/15/2025 10:45 AM PRE SALES SYSTEMS ENGINEER Office Visit [place] [facility] [address] [place] [address] Dale Shahid MD [facility], [address] [place] [address] documented as of this encounter Procedures Procedure Name Priority Date/Time Associated Diagnosis Comments TSH W/REFLEX Routine 08/23/2021 8:08 AM CDT Other specified hypothyroidism HEMOGLOBIN, GLYCOSYLATED Routine 08/23/2021 8:08 AM CDT PROSTATE SPECIFIC ANTIGEN,SCREENING Routine 08/23/2021 8:08 AM CDT Screening for prostate cancer COMPREHENSIVE METABOLIC PANEL Routine 08/23/2021 8:08 AM CDT CAD (coronary artery disease) LIPID PANEL Routine 08/23/2021 8:08 AM CDT Medication management CBC W/DIFF AUTOMATED Routine 08/23/2021 8:08 AM CDT CAD (coronary artery disease) documented in this encounter Results * (ABNORMAL) HEMOGLOBIN, GLYCOSYLATED (08/23/2021 8:08 AM CDT) HGB A1C 6.3(H) <5.7 % of total Hgb [facility] Comment: For someone without known diabetes, a hemoglobin A1c value between 5.7% and 6.4% is consistent with prediabetes and should be confirmed with a follow-up test. For someone with known diabetes, a value <7% indicates that their diabetes is well controlled. A1c targets should be individualized based on duration of diabetes, age, comorbid conditions, and other considerations. This assay result is consistent with an increased risk of diabetes. Currently, no consensus exists regarding use of hemoglobin A1c for diagnosis of diabetes for children. 08/23/2021 8:08 AM CDT 08/24/2021 4:57 AM CDT us Paul Mejia MD LABORATORY Final Re sult [facility] [address] [place] [phone] * PROSTATE SPECIFIC ANTIGEN,SCREENING (08/23/2021 8:08 AM CDT) PSA TOTAL 0.65 < OR = 2.50 ng/mL [facility] Comment: The total PSA value from this assay system is standardized against the WHO standard. The test result will be approximately 20% lower when compared to the equimolar-standardized total PSA (Jacob [place]). Comparison of serial PSA results should be interpreted with this fact in mind. This test was performed using the Siemens chemiluminescent method. Values obtained from different assay methods cannot be used interchangeably. PSA levels, regardless of value, should not be interpreted as absolute evidence of the presence or absence of disease. 08/23/2021 8:08 AM CDT 08/24/2021 4:57 AM CDT us Paul Mejia MD LABORATORY Final Re sult [facility] [address] [phone] * (ABNORMAL) COMPREHENSIVE METABOLIC PANEL (08/23/2021 8:08 AM CDT) GLUCOSE 114(H) 65 - 99 mg/dL [facility] Comment: ? Fasting reference interval For someone without known diabetes, a glucose value between 100 and 125 mg/dL is consistent with prediabetes and should be confirmed with a follow-up test. BUN 26(H) 7 - 25 mg/dL [facility] CREATININE S/P/B 1.33(H) 0.70 - 1.25 mg/dL [facility] Comment: For patients >49 years of age, the reference limit for Creatinine is approximately 13% higher for people identified as -E[place]ian. EGFR NON-AFR. AMER. 55(L) > OR = 60 mL/min/1. 73m2 [facility] EGFR AFR. AMER. 64 > OR = 60 mL/min/1. 73m2 [facility] BUN CREATININE RATIO 20 6 - 22 (calc) [facility] SODIUM S/P/B 141 135 - 146 mmol/L [facility] POTASSIUM S/P/B 4.7 3.5 - 5.3 mmol/L [facility] CHLORIDE S/P/B 106 98 - 110 mmol/L [facility] CO2 28 20 - 32 mmol/L [facility] CALCIUM S/P/B 9.0 8.6 - 10.3 mg/dL [facility] TOTAL PROTEIN S/P/B 6.9 6.1 - 8.1 g/dL [facility] ALBUMIN S/P/B 4.5 3.6 - 5.1 g/dL [facility] GLOBULIN 2.4 1.9 - 3.7 g/dL (calc) [facility] ALBUMIN/GLOBULIN RATIO 1.9 1.0 - 2.5 (calc) [facility] BILIRUBIN TOTAL S/P/B 0.9 0.2 - 1.2 mg/dL [facility] ALKALINE PHOSPHATASE S/P/B 71 35 - 144 U/L [facility] AST 13 10 - 35 U/L [facility] ALT 21 9 - 46 U/L [facility] 08/23/2021 8:08 AM CDT 08/24/2021 4:57 AM CDT Paul Mejia MD LABORATORY Final Re sult [facility] [address] [place] [address] * LIPID PANEL (08/23/2021 8:08 AM CDT) CHOLESTEROL 143 <200 mg/dL [facility] HDL 49 > OR = 40 mg/dL [facility] TRIGLYCERIDES 123 <150 mg/dL [facility] LDL (CALCULATED) 74 mg/dL (calc) [facility] Comment: Reference range: <100 Desirable range <100 mg/dL for primary prevention; ?? <70 mg/dL for patients with CHD or diabetic patients with > or = 2 CHD risk factors. LDL-C is now calculated using the Chacorta-Uriarte calculation, which is a validated novel method providing better accuracy than the Friedewald equation in the estimation of LDL-C. Chacorta SS et al. MIRNA. 2013;310(15): 4450-7327 (http://education.Starline/faq/GGP937) CHOL/HDL RATIO 2.9 <5.0 (calc) [facility] NON HDL CHOLESTEROL 94 <130 mg/dL (calc) [facility] Comment: For patients with diabetes plus 1 major ASCVD risk factor, treating to a non-HDL-C goal of <100 mg/dL (LDL-C of <70 mg/dL) is considered a therapeutic option. 08/23/2021 8:08 AM CDT 08/24/2021 4:57 AM CDT Paul Mejia MD LABORATORY Final Re sult Performing Organization Address [facility] Co de Phone Number [facility] [address] [place] [address] * TSH W/REFLEX (08/23/2021 8:08 AM CDT) TSH 2.86 0.40 - 4.50 mIU/L [facility] 08/23/2021 8:08 AM CDT 08/24/2021 4:57 AM CDT Paul Mejia MD LABORATORY Final Re sult Performing Organization Address [facility] Co de Phone Number [facility] [address] [place] [address] * (ABNORMAL) CBC W/DIFF AUTOMATED (08/23/2021 8:08 AM CDT) WBC 4.5 3.8 - 10.8 Thousand/u L [facility] RBC 4.73 4.20 - 5.80 Million/uL [facility] HGB 14.2 13.2 - 17.1 g/dL [facility] HCT 44.9 38.5 - 50.0 % [facility] MCV 94.9 80.0 - 100.0 fL [facility] MCH 30.0 27.0 - 33.0 pg [facility] MCHC 31.6(L) 32.0 - 36.0 g/dL [facility] RDW 12.9 11.0 - 15.0 % [facility] PLT 256 140 - 400 Thousand/u L [facility] MPV 8.9 7.5 - 12.5 fL [facility] ABS. NEUTROPHILS 2,984 1,500 - 7,800 cells/uL [facility] ABS. LYMPHOCYTES 869 850 - 3,900 cells/uL [facility] ABS. MONOCYTES 446 200 - 950 cells/uL [facility] ABS. EOSINOPHILS 162 15 - 500 cells/uL [facility] ABS. BASOPHILS 41 0 - 200 cells/uL [facility] SEG NEUTROPHILS 66.3 % [facility] LYMPHOCYTES 19.3 % [facility] MONOCYTES 9.9 % [facility] EOSINOPHILS 3.6 % [facility] BASOPHILS 0.9 % [facility] 08/23/2021 8:08 AM CDT 08/24/2021 4:57 AM CDT Paul Mejia MD LABORATORY Final Re sult [facility] [address] [place] [address] documented in this encounter Visit Diagnoses Diagnosis CAD (coronary artery disease)- Primary Coronary atherosclerosis of unspecified type of vessel, [place] or graft Mixed hyperlipidemia Other specified hypothyroidism Fatigue Other malaise and fatigue Medication management Encounter for long-term (current) use of other medications Screening for prostate cancer Special screening for malignant neoplasm of prostate documented in this encounter Additional Health Concerns Assessment Noted Time PHQ-9 Depression Total Score: 0 12/14/19 21 9:36 AM CDT documented as of this encounter Care Teams Grain Picker Relationship Specialty Start Date End Date Paul Mejia MD PCP - General INTERNAL MEDICINE 12/13/20 07/19/22 documented as of this encounter
--- OUTSIDE RECORDS SUMMARY | 2024-04-11 05:35 | XMS_ITS | Encounter Summary ---
Author Organization [facility] Address [address] [place] [address]. [place], [place] [address] [place] [address] Care Team Providers Care Team Primary Care Physician Name Role Phone WongKacey martinez RASHMI Primary Care Provider [phone] Encounter Details Date Type Department Care Team (Late st Contact Info) Description 07/25/2022 7:07 AM CDT - 07/25/2022 11:59 PM CDT Hospital Encounter [facility] [address] [place] [address] Dale Shahid MD [facility], [address] [place] [address] Discharge Disposition: Home or Self Care (Routine [...] CDT Gender Identity Male 06/12/2021 5:16 AM SUPERINTENDENT HORTICULTURE Sexual Orientation Straight 06/28/2021 10 :21 AM CDT COVID-19 Exposure Response Date Recorded In the last 10 days, have yo u been in contact with someone who was confirmed or suspected to have Coronavirus/COVID-19? No / Unsure 07/25/2022 7:03 AM CDT documented as of this encounter [...] xed hyperlipidemia TAKE 1 TABLET BY MOUTH EVERYDAY AT BEDTIME 90 tablet 07/11/2022 3 carvedilol (COREG) 3.125 MG tablet TAKE 1 TABLET BY MOUTH TWICE A DAY 180 tablet 1 04/17/2022 3 ezetimibe (ZETIA) 10 MG tablet TAKE 1 TABLET BY MOUTH EVERY DAY 90 tablet 07/11/2022 3 levothyroxine (SYNTHROID) 125 MCG tabletIndications:Ot her specified hypothyroidism Take 1 tablet (125 mcg total) by mouth every morning. 90 tablet 1 02/20/2022 3 documented as of this encounter Plan of Treatment Upcoming Encounters Date Type Department Care Team (Late st Contact Info) Description 08/05/2024 10:00 AM CDT Office Visit [facility] Medical [facility] Family & Internal Medicine - [place] [address] [place] [address] [place] [address] [place] [address] 02/15/2025 10:45 AM SUPERINTENDENT HORTICULTURE Office Visit [place] [facility] [place] [address] Dale Shahid MD Three [facility]., [address] [place] [address] documented as of this encounter Procedures Procedure Name Priority Date/Time Associated Diagnosis Comments LIPID PANEL Routine 07/25/2022 7:16 AM CDT Hyperlipemia documented in this encounter Results * LIPID PANEL (07/25/2022 7:16 AM CDT) Pathologist [facility] CHOLESTEROL 123 <200.0 MG/DL 07/25/2022 8:20 AM T [facility] TRIGLYCERIDES 134 <150 MG/DL 07/25/2022 8:20 AM T [facility] HDL 48 >40.0 MG/DL 07/25/2022 8:20 AM T [facility] LDL (CALCULATED) 48 <100 MG/DL 07/26/19 8:20 AM T [facility] NON HDL CHOLESTEROL 75 <130 MG/DL 07/25 8:20 AM T [facility] CHOL/HDL RATIO 2.6 0.0 - 4.5 07/25/2022 8:20 AM T [facility] VLDL CALCULATION 27 5 - 55 MG/DL 07/25/2022 8:20 AM [facility] LIPID INTERPRETATION 07/25/2022 8:20 AM T [facility] Comment: NIH CONCENSUS REPORT [...] ?HDL ?<40 ?--- ?LDL ? >=160 ?>=130 07/25/2022 7:16 AM CDT Dale Shahid MD LABORATORY Final Res ult Performing Organization Address City/State/[facility] Co de Phone Number [facility] [address] [place] [address], documented in this encounter Visit Diagnoses Diagnosis Hyperlipemia Other and unspecified hyperlipidemia documented in this encounter Additional Health Concerns Assessment Noted Time PHQ-9 Depression Total Score: 0 12/14/19 21 9:36 AM CDT documented as of this encounter Care Teams Team Primary Care Physician Relationship Specialty Start Date End Date Kacey Lafleur, RASHMI [address] [address], [address] [place] [address] PCP - General Nurse Practitioner Family 07/20/2206/13 documented as of this encounter
--- OUTSIDE RECORDS SUMMARY | 2024-04-11 05:35 | XMS_ITS | Encounter Summary ---
Author Organization [facility] Address [address] [place] [address]. [place], [place] [address] [place] [address] Care Team Providers Care Oncology Radiation Physician Name Role Phone Paul Mejia MD Primary Care Provider Javier spencer Encounter Details Date Type Department Care Team (Late st Contact Info) Description 10/21/2021 Orders Only [facility], [address] [place] [address] Dale Shahid MD [facility]., [address] [place], [place] [address] Social History Tobacco Use Types Packs/Day Years [...] CDT Gender Identity Male 06/12/2021 5:16 AM SENIOR BUSINESS OBJECTS DEVELOPER Sexual Orientation Straight 06/28/2021 10 :21 AM CDT documented as of this encounter Plan of Treatment Upcoming Encounters Date Type Department Care Team (Late st Contact Info) Description 08/05/2024 10:00 AM CDT Office Visit [facility] Medical Group Family & Internal Medicine [place] [phone] [place] [address] [place], [place] [phone] 02/15/2025 10:45 AM SENIOR BUSINESS OBJECTS DEVELOPER Office Visit [place] [facility] [address] [place], [place] [phone] Dale Shahid MD [facility], [address] [place] [address] documented as of this encounter Visit Diagnoses Diagnosis NSTEMI (non-ST elevated myocardial infarction) ([facility]) Acute myocardial infarction, subendocardial infarction, episode of care unspecified documented in this encounter Additional Health Concerns Assessment Noted Time PHQ-9 Depression Total Score: 0 12/14/19 9:36 AM CDT documented as of this encounter Care Teams Oncology Radiation Physician Relationship Specialty Start Date End Date Paul Mejia MD PCP - General INTERNAL MEDICINE 12/13/20 07/19/22 documented as of this encounter
--- OUTSIDE RECORDS SUMMARY | 2024-04-11 05:35 | XMS_ITS | Encounter Summary ---
Author Organization [facility] Address [address] [place] [address]. [place], [place] [address] [place] [address] Care Team Providers Care Web Editor Name Role Phone Paul Mejia MD Primary Care Provider Javier spencer Encounter Details Date Type Department Care Team (Late st Contact Info) Description 01/17/2022 1:05 PM CDT - 01/17/2022 11:59 PM CDT Hospital Encounter [facility] [address] [place] [address] Dale Shahid MD [facility], [address] [place], [place] [address] Discharge Disposition: Home or Self Care (Routine [...] CDT Gender Identity Male 06/12/2021 5:16 AM MICROWAVE RADIO TECHNICIAN Sexual Orientation Straight 06/28/2021 10 :21 AM CDT COVID-19 Exposure Response Date Recorded In the last 10 days, have yo u been in contact with someone who was confirmed or suspected to have Coronavirus/COVID-19? No / Unsure 01/17/2022 7:41 AM CDT documented as of this encounter Medications at Time of Discharge ASPIRIN EC 81 MG tablet Take 1 tablet (81 mg total) by mouth daily. 10/14/2020 Multiple Vitamins-Minerals (CENTRUM SILVER) Tab Take 1 [...] mg total) by mouth nightly at bedtime. 30 tablet 2 01/16/2022 3 BRILINTA 90 MG tablet Take 1 tablet (90 mg total) by mouth 2 (two) times daily. 180 tablet 3 01/04/2021 2 CARVEDILOL 3.125 MG tablet TAKE 1 TABLET BY MOUTH 2 TIMES DAILY. 180 tablet 1 10/23/2021 3 levothyroxine 125 MCG tabletIndications:Ot her specified hypothyroidism Take 1 tablet (125 mcg total) by mouth every morning. 90 tablet 1 08/29/2021 2 documented as of this encounter Plan of Treatment Upcoming Encounters Date Type Department Care Team (Late st Contact Info) Description 08/05/2024 10:00 AM CDT Office Visit [facility] Family & Internal Medicine [facility] [address] [place] [address] [place] [address] [place], [place] [phone] 02/15/2025 10:45 AM MICROWAVE RADIO TECHNICIAN Office Visit [place] [facility]-[address] [place] [address] Dale Shhaid MD [facility], [address] [place] [address] documented as of this encounter Procedures Procedure Name Priority Date/Time Associated Diagnosis Comments COMPREHENSIVE METABOLIC PANEL Routine 01/17/2022 7:55 AM CDT Dyslipidemia LIPID PANEL Routine 01/17/2022 7:55 AM CDT Dyslipidemia documented in this encounter Results * (ABNORMAL) COMPREHENSIVE METABOLIC PANEL (01/17/2022 7:55 AM CDT) Pathologist [facility] GLUCOSE 89 70 - 99 MG/DL 01/17/2022 1:53 PM CDT [facility] BUN 25(H) 7 - 18 MG/DL 01/17/2022 1:53 PM CDT [facility] CREATININE S/P/B 1.27 0.7 - 1.3 MG/DL 01/17/2022 1:53 PM CDT [facility] SODIUM S/P/B 142 136 - 145 MMOL/L 01/17/2022 1:53 PM CDT [facility] POTASSIUM S/P/B 4.4 3.5 - 5.1 MMOL/L 01/17/2022 1:53 PM CDT [facility] CHLORIDE S/P/B 105 100 - 108 MMOL/L 01/17/2022 1:53 PM CDT [facility] CO2 27.2 21 - 32 MMOL/L 01/17/2022 1:53 PM CDT [facility] CALCIUM S/P/B 8.6 8.5 - 10.1 MG/DL 01/17/2022 1:53 PM CDT [facility] BILIRUBIN TOTAL S/P/B 1.1 0.2 - 1.2 MG/DL 01/17/2022 1:53 PM CDT [facility] TOTAL PROTEIN S/P/B 6.6 6.4 - 8.2 G/DL 01/17/2022 1:53 PM CDT [facility] ALBUMIN S/P/B 3.9 3.4 - 5.0 G/DL 01/17/2022 1:53 PM CDT [facility] AST 18 15 - 37 U/L 01/17/2022 1:53 PM T [facility] ALT 35 16 - 60 U/L 01/17/2022 1:53 PM CDT [facility] ALKALINE PHOSPHATASE S/P/B 71 50 - 136 U/L 01/17/2022 1:53 PM CDT [facility] ANION GAP 9.8 5 - 15 MMOL/L 01/17/2022 1:53 PM CDT [facility] BUN CREATININE RATIO 19.7 6 - 26 01/17/2022 1:53 PM T [facility] A/G RATIO 1.4 1.0 - 2.0 RATIO 01/17/2022 1:53 PM T [facility] GFR ESTIMATE 62(L) >90 ML/MIN/1.7 3 M2 01/17/2022 1:53 PM CDT [facility] Comment: NOTE: eGFR is not calculated for patients <18 years of age. This is an estimated GFR calculation using the new CKD EPI creatinine equation without race and so does not require a correction factor for race. This estimated GFR should not be used for calculating drug doses. 01/17/2022 7:55 AM CDT us Dale Shahid MD LABORATORY Final Res ult [facility] [address] [place] [address], [place] [phone] * LIPID PANEL (01/17/2022 7:55 AM CDT) [facility] Signature CHOLESTEROL 146 <200.0 MG/DL 01/17/2022 1:53 PM CDT [facility] TRIGLYCERIDES 97 <150 MG/DL 01/17/2022 1:53 PM CDT [facility] HDL 46 >40.0 MG/DL 01/17/2022 1:53 PM T [facility] LDL (CALCULATED) 81 <100 MG/DL 01/18/20 1:53 PM CDT [facility] NON HDL CHOLESTEROL 100 <130 MG/DL 01/17 1:53 PM T [facility] CHOL/HDL RATIO 3.2 0.0 - 4.5 01/17/2022 1:53 PM T [facility] VLDL CALCULATION 19 5 - 55 MG/DL 01/17/2022 1:53 PM T [facility] LIPID INTERPRETATION 01/17/2022 1:53 PM CDT [facility] Comment: NIH CONCENSUS REPORT RECOMMENDATIONS: ?ADULT ?CHILD ??LOW RISK: ?CHOLESTEROL ? <200 ? <170 ?TRIGLYCERIDE ?<150 ?--- ?HDL ? >=60 ?--- ?LDL ? <100 ? <110 ??BORDERLINE: ?CHOLESTEROL ? 200-239 ?? 170-199 ?TRIGLYCERIDE ?150-199 ? --- ?HDL ?40-59 ?--- ?LDL ? 100-159 ?? 110-129 ??HIGH RISK: ?CHOLESTEROL ? >=240 ?>=200 ?TRIGLYCERIDE ?>=200 ? --- ?HDL ?<40 ?--- ?LDL ? >=160 ?>=130 01/17/2022 7:55 AM CDT us Dale Shahid MD LABORATORY Final Res ult Performing Organization Address City/State/[facility] Co de Phone Number [facility] [address] [place] [address], documented in this encounter Visit Diagnoses Diagnosis Dyslipidemia Other and unspecified hyperlipidemia documented in this encounter Additional Health Concerns Assessment Noted Time PHQ-9 Depression Total Score: 0 12/14/19 21 9:36 AM CDT documented as of this encounter Care Teams Web Editor Relationship Specialty Start Date End Date Paul Mejia MD PCP - General INTERNAL MEDICINE 12/13/20 07/19/22 documented as of this encounter
--- OUTSIDE RECORDS SUMMARY | 2024-04-11 05:35 | XMS_ITS | Encounter Summary ---
Author Organization [facility] Address [address] [place] [address]. [place], [place] [address] [place] [address] Care Team Providers Care Stone Layer Name Role Phone Paul Mejia MD Primary Care Provider U johanna Encounter Details Date Type Department Care Team (Latest Contact Info) Description 08/18/2021 Scan HEALTH INFO SRVCS Scanned, Documents Social History Tobacco Use Types Packs/Day Years [...] CDT Gender Identity Male 06/12/2021 5:16 AM RN REHABILITATION Sexual Orientation Straight 06/28/2021 10 :21 AM CDT COVID-19 Exposure Response Date Recorded In the last 10 days, have nicole cantor been in contact with someone who was confirmed or suspected to have Coronavirus/COVID-19? No / Unsure 08/23/2021 7:58 AM CDT documented as of this encounter Plan of Treatment Upcoming Encounters Date Type Department Care Team (Late st Contact Info) Description 08/05/2024 10:00 AM CDT Office Visit [facility] Medical Group Family & Internal Medicine [facility] [address] [place] [address] [place] [address] [place] [address] 02/15/2025 10:45 AM RN REHABILITATION Office Visit [place] [facility] [address] [place] [address] Dale Shahid MD Three [facility], [address] [place] [address] documented as of this encounter Visit Diagnoses Not on filedocumented in this encounter Additional Health Concerns Assessment Noted Time PHQ-9 Depression Total Score: 0 12/14/19 21 9:36 AM CDT documented as of this encounter Care Teams Stone Layer Relationship Specialty Start Date End Date Paul Mejia MD PCP - General INTERNAL MEDICINE 12/13/20 07/19/22 documented as of this encounter
--- OUTSIDE RECORDS SUMMARY | 2024-04-11 05:35 | XMS_ITS | Encounter Summary ---
Author Organization [facility] Address [facility] [place] [address] [place] [address] Care Team Providers Care Avionics Technician Name Role Phone Paul Mejia MD Primary Care Provider U navailable Reason for Visit * Consultation/Treatment (Routine) - Closed Specialty Diagnoses / Procedures Referred By Contact Referred To Contact Cardiac Rehabilitation / [facility] Cardiopulmonary Rehab Diagnoses NSTEMI (non-ST elevated myocardial infarction) ([facility]) NSTEMI Procedures Cardiac Rehab Evaluation (Phase II) (ONLY ORDER IF MD) Dale Shahid MD [facility], [address] [place] [address] Phone: tel: fax: [facility] [address] [place] [address] Phone: tel:[phone] Referral ID Status Reason Start Date Expiration Date Visits Requested Visits Authorized [id number] Closed Cardiac Rehabilitation 10/26/2020 11/26/2021 36 36 Encounter Details Date Type Department Care Team (Late st Contact Info) Description 03/02/2021 1:14 PM MFT - 03/02/2021 11:59 PM MFT Hospital Encounter [facility] [address] [place] [address] Dale Shahid MD [facility], [address] [place] [address] Discharge Disposition: Home or Self Care [...] CDT Gender Identity Male 06/12/2021 5:16 AM MFT Sexual Orientation Straight 06/28/2021 10 :21 AM CDT COVID-19 Exposure Response Date Recorded In the last month, have you been in contact with someone who was confirmed or suspected to have Coronavirus / COVID-19? No / Unsure 03/02/2021 1:14 PM MFT documented as of this encounter Medications at [...] (3,000 Units total) by mouth daily. atorvastatin 80 MG tablet Take 80 mg by mouth nightly at bedtime. 10/14/2020 2 BRILINTA 90 MG tablet Take 1 tablet (90 mg total) by mouth 2 (two) times daily. 180 tablet 3 01/04/2021 2 carvedilol 3.125 MG tablet Take 3.125 mg by mouth 2 (two) times daily. 10/14/2020 2 levothyroxine 125 MCG tabletIndications:Ot her specified hypothyroidism Take 1 tablet (125 mcg total) by mouth every morning. 90 tablet 1 12/13/2020 2 valsartan 40 MG tablet Take 1 tablet (40 mg total) by mouth daily. 10/26/2020 2 documented as of this encounter Plan of Treatment Upcoming Encounters Date Type Department Care Team (Late st Contact Info) Description 08/05/2024 10:00 AM CDT Office Visit [facility] Medical Group Family & Internal Medicine - [place] [address] [place] [address] [place] [address] [place] [address] 02/15/2025 10:45 AM MFT Office [facility] [place] [facility] [address] [place] [address] Dale Shahid MD [facility], [address] [place] [address] documented as of this encounter Visit Diagnoses Not on filedocumented in this encounter Additional Health Concerns Assessment Noted Time PHQ-9 Depression Total Score: 0 12/14/19 21 9:36 AM CDT documented as of this encounter Care Teams Avionics Technician Relationship Specialty Start Date End Date Paul Mejia MD PCP - General INTERNAL MEDICINE 12/13/20 07/19/22 documented as of this encounter
--- OUTSIDE RECORDS SUMMARY | 2024-04-11 05:35 | XMS_ITS | Encounter Summary ---
Author Organization [facility] Address [address] [place] [address]. [place], [place] [address] [place] [address] Care Team Providers Care Paper Wrapping Machine Operator Name Role Phone Kacey Lafleur WEATHERIZATION TECHNICIAN Primary Care Provider [phone] Encounter Details Date Type Department Care Team (Latest Contact Info) Description 02/05/2023 12:26 PM CDT - 02/05/2023 11:59 PM CDT Hospital Encounter [facility] [address] [place] [address] [place] [address] [facility], [address] [place] [address] Discharge Disposition: Home or Self Care (Routine [...] CDT Gender Identity Male 06/12/2021 5:16 AM SALAD COUNTER ATTENDANT Sexual Orientation Straight 06/28/2021 10 :21 AM [...] A DAY 180 tablet 1 10/01/2022 3 Efinaconazole (JUBLIA) 10 % SolutionIndications: Onychomycosis Apply 1 Application. topically daily. 8 mL 1 02/05/2023 3 ezetimibe (ZETIA) 10 MG tablet TAKE 1 TABLET BY MOUTH EVERY DAY 90 tablet 1 12/25/2022 4 levothyroxine (SYNTHROID) 125 MCG tabletIndications:Ot her specified hypothyroidism TAKE 1 TABLET BY MOUTH EVERY MORNING 90 tablet 12/05/2022 3 melatonin 5 MG tablet 12/14/2022 4 meloxicam (MOBIC) 15 MG tablet Take 1 tablet (15 mg total) by mouth daily. 4 documented as of this encounter Progress Notes * Kacey Lafleur NP - 02/05/2023 12:26 PM CDT Tsh is normal. Continue current dosage of med. F/u in 6mo. Thanks documented in this encounter Plan of Treatment Upcoming Encounters Date Type Department Care Team (Late st Contact Info) Description 08/05/2024 10:00 AM CDT Office Visit [facility] Medical Group Family & Internal Medicine [address] [place] [address] [place] [address] [place] [address] 02/15/2025 10:45 AM SALAD COUNTER ATTENDANT Office Visit [place] [facility] [address] [place] [address] Dale Shahid MD [facility], [address] [place] [address] documented as of this encounter Procedures Procedure Name Priority Date/Time Associated Diagnosis Comments THYROID STIM HORMONE TSH Routine 02/05/2023 10:50 AM CDT Other specified hypothyroidism documented in this encounter Results * THYROID STIM HORMONE, TSH (02/05/2023 10:50 AM CDT) TSH 1.606 0.358 - 3.74 uIU/ML 02/05/2023 1:33 PM CDT [facility] Comment: HIGH DOSES OF BIOTIN MAY INTERFERE WITH THIS TEST RESULT. CORRELATION TO CLINICAL HISTORY AND PRESENTATION RECOMMENDED. 02/05/2023 10:5 0 AM CDT Kacey Lafleur NP LABORATORY Final Result [facility] [address] [place] [address], documented in this encounter Visit Diagnoses Diagnosis Other specified hypothyroidism documented in this encounter Additional Health Concerns Assessment Noted Time PHQ-9 Depression Total Score: 0 12/14/19 21 9:36 AM CDT documented as of this encounter Care Teams Paper Wrapping Machine Operator Relationship Specialty [place] [address] [facility], [address] [place] [address] PCP - General Nurse Practitioner Family 07/20/2206/13 documented as of this encounter
--- OUTSIDE RECORDS SUMMARY | 2024-04-11 05:35 | XMS_ITS | Encounter Summary ---
Author Organization [facility] Address [address] [place] [address]. [place], [place] [address] [place] [address] Care Team Providers Care Head Of Sales And Marketing Name Role Phone Paul Mejia MD Primary Care Provider U johanna Encounter Details Date Type Department Care Team (Late st Contact Info) Description 01/17/2022 8:00 AM CDT Laboratory Only [facility] Family & Internal Medicine [place] [phone] Paul Mejia MD Social History Tobacco Use Types Packs/Day Years [...] CDT Gender Identity Male 06/12/2021 5:16 AM PORTRAIT PHOTOGRAPHER Sexual Orientation Straight 06/28/2021 10 :21 AM CDT COVID-19 Exposure Response Date Recorded In the last 10 days, have yo u been in contact with someone who was confirmed or suspected to have Coronavirus/COVID-19? No / Unsure 01/17/2022 7:41 AM CDT documented as of this encounter Plan of Treatment Upcoming Encounters Date Type Department Care Team (Late Contact Info) Description 08/05/2024 10:00 AM CDT Office [facility] Family [facility] Internal Medicine [facility] [address] [place] [address] [place] [address] [place] [address] 02/15/2025 10:45 AM PORTRAIT PHOTOGRAPHER Office Visit [facility] [address] [place] [address] Dale Shahid MD Three [facility], [address] [place] [address] documented as of this encounter Procedures Procedure Name Priority Date/Time Associated Diagnosis Comments VENIPUNC ARM DRAW Routine 01/17/2022 8:02 AM CDT CAD (coronary artery disease) Dyslipidemia NSTEMI (non-ST elevated myocardial infarction) ([facility]) documented in this encounter Visit Diagnoses Diagnosis CAD (coronary artery disease)- Primary Coronary atherosclerosis of unspecified type of vessel, mohegan or graft Dyslipidemia Other and unspecified hyperlipidemia NSTEMI (non-ST elevated myocardial infarction) ([facility]) Acute myocardial infarction, subendocardial infarction, episode of care unspecified documented in this encounter Additional Health Concerns Assessment Noted Time PHQ-9 Depression Total Score: 0 12/14/19 21 9:36 AM CDT documented as of this encounter Care Teams Head Of Sales And Marketing Relationship Specialty Start Date End Date Paul Mejia MD PCP - General INTERNAL MEDICINE 12/13/20 07/19/22 documented as of this encounter
--- OUTSIDE RECORDS SUMMARY | 2024-04-11 05:35 | XMS_ITS | Encounter Summary ---
Author Organization [facility] Address [address] [place] [address]. [place], [place] [address] [place] [address] Care Team Providers Care Slicing Machine Tender Name Role Phone Paul Mejia MD Primary Care Provider U bashirailshannan Encounter Details Date Type Department Care Team (Late st Contact Info) Description 08/23/2021 8:20 AM CDT Laboratory Only [facility] Medical [facility] Family & Internal Medicine [place] [phone] Paul Mejia MD Social History Tobacco Use [...] CDT Gender Identity Male 06/12/2021 5:16 AM CAR SHIFTER Sexual Orientation Straight 06/28/2021 10 :21 AM [...] Medical Group Family & Internal Medicine - [place] [address] [place] [address] [place] [address] [place] [address] 02/15/2025 10:45 AM CAR SHIFTER Office Visit [facility] [address] [place] [address] Dale Shahid MD [facility], [address] [place] [address] documented as of this encounter Procedures Procedure Name Priority Date/Time Associated Diagnosis Comments VENIPUNC ARM DRAW Routine 08/23/2021 8:15 AM CDT CAD (coronary artery disease) Medication management Other specified hypothyroidism Screening for prostate cancer documented in this encounter Visit Diagnoses Diagnosis CAD (coronary artery disease)- Primary Coronary atherosclerosis of unspecified type of vessel, [place] or graft Medication management Encounter for long-term (current) use of other medications Other specified hypothyroidism Screening for prostate cancer Special screening for malignant neoplasm of prostate documented in this encounter Additional Health Concerns Assessment Noted Time PHQ-9 Depression Total Score: 0 12/14/19 21 9:36 AM CDT documented as of this encounter Care Teams Slicing Machine Tender Relationship Specialty Start Date End Date Paul Mejia MD PCP - General INTERNAL MEDICINE 12/13/20 07/19/22 documented as of this encounter
--- OUTSIDE RECORDS SUMMARY | 2024-04-11 05:35 | XMS_ITS | Encounter Summary ---
Author Organization [facility] Address [address] [place] [address]. [place], [place] [address] [place] [address] Care Team Providers Care Transcription Typist Name Role Phone Paul Mejia MD Primary Care Provider U navailable Reason for Visit * Reason Onset Date Comments Quality Gap Closure 05/17/2022 Encounter Details Date Type Department Care Team (Late st Contact Info) Description 05/17/2022 Patient Outreach [facility] Medical Group Family & Internal Medicine [address] [address] Jennifer Ngo MA Quality Gap Closure [...] CDT Gender Identity Male 06/12/2021 5:16 AM ASSOCIATE PROFESSOR OF AUTOMATION Sexual Orientation Straight 06/28/2021 10 :21 AM CDT documented as of this encounter Progress Notes * Jennifer Ngo MA - 05/17/2022 1:17 PM CST I am a patient quality advocate calling this patient on behalf of the virtual [employer] work team to assess the below quality gaps. If you need to contact me directly- my number is [phone]. Preventive Screenings: Breast Cancer Screening: N/A Notes:n/a Colorectal Cancer Screening: Requested Record Notes: pt declined @ [facility] in last 7 yrs Diabetic Eye Exam: N/A Notes:n/a Falls Risk Screening: Gap Closed Notes: yes, no, no Tobacco Cessation: N/A Notes:n/a Labs: BMP/CMP: N/A Notes:n/a Hemoglobin A1c: N/A Notes:n/a Lipid: N/A Notes:n/a Urine Albumin-Creatinine Ratio: N/A Notes:n/a Immunizations: Influenza: Patient Declined Notes: pt declined Pneumococcal: Needs Follow Up Notes: nfu Shingles: Needs Follow Up Notes:nfu CIATE PROFESSOR OF AUTOMATION documented in this encounter Plan of Treatment Upcoming Encounters Date Type Department Care Team (Late st Contact Info) Description 08/05/2024 10:00 AM CDT Office Visit [facility] Medical Group Family & Internal Medicine [facility] [address] [place] [phone] [place] [address] [place], [place] [phone] 02/15/2025 10:45 AM ASSOCIATE PROFESSOR OF AUTOMATION Office Visit [facility] [place] [address] Dale Shahid MD [facility], [address] [place] [address] documented as of this encounter Visit Diagnoses Not on filedocumented in this encounter Additional Health Concerns Assessment Noted Time PHQ-9 Depression Total Score: 0 12/14/19 9:36 AM CDT documented as of this encounter Care Teams Transcription Typist Relationship Specialty Start Date End Date Paul Mejia MD PCP - General INTERNAL MEDICINE 12/13/20 07/19/22 documented as of this encounter
--- OUTSIDE RECORDS SUMMARY | 2024-04-11 05:35 | XMS_ITS | Encounter Summary ---
Author Organization [facility] Address [address] [place] [address]. [place], [place] [address] [place] [address] Care Team Providers Care Java Performance Engineer Name Role Phone Paul Mejia MD Primary Care Provider U Kacey Arias NP Primary Care Provider [phone] Amado Mathew Primary Care Provider [phone] Encounter Details Date Type Department Care Team (Late st Contact Info) Description 07/17/2022 BESOSt Message Enc [facility] Family & Internal Medicine [facility] [address] [place] [address] Al[place], [facility] Provider lab Social History Tobacco Use Types Packs/Day Years [...] CDT Gender Identity Male 06/12/2021 5:16 AM SOCIAL WORK ADMINISTRATOR Sexual Orientation Straight 06/28/2021 10 :21 AM CDT documented as of this encounter Plan of Treatment Upcoming Encounters Date Type Department Care Team (Late st Contact Info) Description 08/05/2024 10:00 AM CDT Office Visit [facility] Family & Internal Medicine [address] [address] [place] [address] [place], [place] [phone] 02/15/2025 10:45 AM SOCIAL WORK ADMINISTRATOR Office Visit [facility] [address] [place] [address] Dale Shahid MD [facility], [address] [place], [place] [phone] documented as of this encounter Visit Diagnoses Not on filedocumented in this encounter Additional Health Concerns Infection Onset Date Last Indicated Resolved Time COVID-19 Rule Out 02/27/2023 02/27/2023 02/27/2023 8:20 AM SOCIAL WORK ADMINISTRATOR COVID-19 Rule Out 02/28/2023 02/28/2023 02/28/2023 9:17 AM SOCIAL WORK ADMINISTRATOR COVID-19 Confirmed 02/28/2023 02/28/2023 12:32 AM SOCIAL WORK ADMINISTRATOR COVID-19 Rule Out 04/06/2024 04/06/2024 04/06/2024 7:33 AM SOCIAL WORK ADMINISTRATOR COVID-19 Confirmed 04/06/2024 04/06/2024 Assessment Noted Time PHQ-9 Depression Total Score: 0 12/14/19 21 9:36 AM CDT documented as of this encounter Care Teams Java Performance Engineer Relationship Specialty Start Date End Date Paul Mejia MD PCP - General INTERNAL MEDICINE 12/13/20 07/19/22 [place] [address] [id number] PCP - General Nurse Practitioner Family 07/20/2206/13 [place] [address] [place] [address] PCP - General Physician Card [facility] 06/25/23 documented as of this encounter
--- OUTSIDE RECORDS SUMMARY | 2024-04-11 05:35 | XMS_ITS | Encounter Summary ---
Author Organization [facility] Address [address] [place] [address]. [place] [address] [place] [address] Care Team Providers Care Talent Acquisition Coordinator Name Role Phone Paul Mejia MD Primary Care Provider U navailable Reason for Visit * Reason Onset Date Comments Refill Request 04/24/2021 carvedilol n cam sartan Encounter Details Date Type Department Care Team (Late st Contact Info) Description 04/24/2021 Telephone [facility] [address] [address] Claudia Perez, [facility] Refill Request (carvedilol n valsartan) Social History Tobacco Use Types Packs/Day Years [...] CDT Gender Identity Male 06/12/2021 5:16 AM ONLINE ADVERTISING DIRECTOR Sexual Orientation Straight 06/28/2021 10 :21 AM CDT documented as of this encounter Plan of Treatment Upcoming Encounters Date Type Department Care Team (Late st Contact Info) Description 08/05/2024 10:00 AM CDT Office Visit [facility] Medical Group Family & Internal Medicine [facility] [address] [place] [phone] [place] [address] [address] [place], [place] [phone] 02/15/2025 10:45 AM ONLINE ADVERTISING DIRECTOR Office Visit [facility] [address] [place] [address] Dale Shahid MD [facility], [address] [place] [address] documented as of this encounter Visit Diagnoses Not on filedocumented in this encounter Additional Health Concerns Assessment Noted Time PHQ-9 Depression Total Score: 0 12/14/19 9:36 AM CDT documented as of this encounter Care Teams Talent Acquisition Coordinator Relationship Specialty Start Date End Date Paul Mejia MD PCP - General INTERNAL MEDICINE 12/13/20 07/19/22 documented as of this encounter
--- OUTSIDE RECORDS SUMMARY | 2024-04-11 05:35 | XMS_ITS | Encounter Summary ---
Author Organization [facility] Address [address] [place] [address]. [place], [place] [address] [place] [address] Care Team Providers Care Backhoe Operator Name Role Phone Paul Mejia MD Primary Care Provider U johnshannan Encounter Details Date Type Department Care Team (Latest Contact Info) Description 11/24/2021 Travel Social History Tobacco Use Types Packs/Day [...] Gender Identity Male 06/12/2021 5:16 AM MANAGER WINTER Sexual Orientation Straight 06/28/2021 10 :21 AM CDT COVID-19 Exposure Response Date Recorded In the last 10 days, have nicole u been in contact with someone who was confirmed or suspected to have Coronavirus/COVID-19? No / Unsure 11/24/2021 8:06 AM CDT documented as of this encounter Plan of Treatment Upcoming Encounters Date Type Department Care Team (Late st Contact Info) Description 08/05/2024 10:00 AM CDT Office Visit [facility] Medical Group Family & Internal Medicine [facility] [address] [place] [address] [place] [address] [place] [address] 02/15/2025 10:45 AM MANAGER WINTER Office Visit [facility] [address] [place] [address] Dale Shahid MD [facility], [address] [place] [address] documented as of this encounter Visit Diagnoses Not on filedocumented in this encounter Additional Health Concerns Assessment Noted Time PHQ-9 Depression Total Score: 0 12/14/19 21 9:36 AM CDT documented as of this encounter Care Teams Backhoe Operator Relationship Specialty Start Date End Date Paul Mejia MD PCP - General INTERNAL MEDICINE 12/13/20 07/19/22 documented as of this encounter
--- OUTSIDE RECORDS SUMMARY | 2024-04-11 05:35 | XMS_ITS | Encounter Summary ---
Author Organization [facility] Address [address] [place] [address]. [place], [place] [address] [place] [address] Care Team Providers Care Concrete Mixer Operator Helper Name Role Phone Paul Mejia MD Primary Care Provider U johnshannan Encounter Details Date Type Department Care Team (Latest Contact Info) Description 01/06/2022 Travel Social History Tobacco Use Types Packs/Day [...] Gender Identity Male 06/12/2021 5:16 AM MANAGER PRIMARY CARE Sexual Orientation Straight 06/28/2021 10 :21 AM CDT COVID-19 Exposure Response Date Recorded In the last 10 days, have nicole u been in contact with someone who was confirmed or suspected to have Coronavirus/COVID-19? No / Unsure 01/06/2022 10:17 AM CDT documented as of this encounter Plan of Treatment Upcoming Encounters Date Type Department Care Team (Late st Contact Info) Description 08/05/2024 10:00 AM CDT Office Visit [facility] Medical Group Family & Internal Medicine [facility] [address] [place] [address] [place] [address] [place] [address] 02/15/2025 10:45 AM MANAGER PRIMARY CARE Office Visit [facility] [address] [place] [address] Dale Shahid MD [facility], [address] [place] [address] documented as of this encounter Visit Diagnoses Not on filedocumented in this encounter Additional Health Concerns Assessment Noted Time PHQ-9 Depression Total Score: 0 12/14/19 21 9:36 AM CDT documented as of this encounter Care Teams Concrete Mixer Operator Helper Relationship Specialty Start Date End Date Paul Mejia MD PCP - General INTERNAL MEDICINE 12/13/20 07/19/22 documented as of this encounter
--- OUTSIDE RECORDS SUMMARY | 2024-04-11 05:35 | XMS_ITS | Encounter Summary ---
Author Organization [facility] Address [address] [place] [address]. [place], [place] [address] [place] [address] Care Team Providers Care Fork Truck Driver Name Role Phone Paul Mejia MD Primary Care Provider U Kacey Arias NP Primary Care Provider [phone] Encounter Details Date Type Department Care Team (Late st Contact Info) Description 07/17/2022 Orders Only [facility] Medical Group Family & Internal Medicine [facility] [address] [place] [address] Paul Mejia MD Social History Tobacco Use [...] CDT Gender Identity Male 06/12/2021 5:16 AM BANKING ATTORNEY Sexual Orientation Straight 06/28/2021 10 :21 AM CDT documented as of this encounter Progress Notes * Kathy Pollard RN - 07/17/2022 1:29 PM CDT bmp documented in this encounter Plan of Treatment Upcoming Encounters Date Type Department Care Team (Late st Contact Info) Description 08/05/2024 10:00 AM CDT Office Visit [facility] Medical Group Family & Internal Medicine - [place] [address] [place] [address] [place] [address] [place], [place] [phone] 02/15/2025 10:45 AM BANKING ATTORNEY Office Visit [facility] [address] [place] [address] Dale Shahid MD [facility], [address] [place] [address] documented as of this encounter Visit Diagnoses Diagnosis CAD (coronary artery disease)- Primary Coronary atherosclerosis of unspecified type of vessel, [place] or graft documented in this encounter Additional Health Concerns Assessment Noted Time PHQ-9 Depression Total Score: 0 12/14/19 9:36 AM CDT documented as of this encounter Care Teams Fork Truck Driver Relationship Specialty Start Date End Date Paul Mejia MD PCP - General INTERNAL MEDICINE 12/13/20 07/19/22 [place] [address] [facility] [address] [place], [place] [phone] PCP - General Nurse Practitioner Family 07/20/2206/13 documented as of this encounter
--- OUTSIDE RECORDS SUMMARY | 2024-04-11 05:35 | XMS_ITS | Encounter Summary ---
Author Organization [facility] Address [address] [place] [address]. [place], [place] [address] [place] [address] Care Team Providers Care Field Coil Winder Name Role Phone WongKacey martinez RASHMI Primary Care Provider [phone] Encounter Details Date Type Department Care Team (Late st Contact Info) Description 07/25/2022 Orders Only [facility] [address] [place] [address] Dale Shahid MD [facility], [address] [place] [address] Social History Tobacco Use Types Packs/Day Years [...] CDT Gender Identity Male 06/12/2021 5:16 AM DIRECTOR OF ARCHIVES Sexual Orientation Straight 06/28/2021 10 :21 AM [...] [facility] Family & Internal Medicine [facility] [address] [place] [address] [place] [address] [place] [address] 02/15/2025 10:45 AM DIRECTOR OF ARCHIVES Office Visit [facility] [address] [place], [place] [phone] Dale Shahid MD [facility], [address] [place] [address] documented as of this encounter Results * LIPID PANEL (07/25/2022 7:16 AM CDT) [facility] Signature CHOLESTEROL 123 <200.0 MG/DL 07/25/2022 8:20 AM CDT [facility] TRIGLYCERIDES 134 <150 MG/DL 07/25/2022 8:20 AM T [facility] HDL 48 >40.0 MG/DL 07/25/2022 8:20 AM T [facility] LDL (CALCULATED) 48 <100 MG/DL 07/26/19 8:20 AM T [facility] NON HDL CHOLESTEROL 75 <130 MG/DL 07/25 8:20 AM T [facility] CHOL/HDL RATIO 2.6 0.0 - 4.5 07/25/2022 8:20 AM T [facility] VLDL CALCULATION 27 5 - 55 MG/DL 07/25/2022 8:20 AM T [facility] LIPID INTERPRETATION 07/25/2022 8:20 AM T [facility] Comment: NIH CONCENSUS REPORT RECOMMENDATIONS: [...] ? >=160 ?>=130 07/25/2022 7:16 AM CDT us Dale Shahid MD LABORATORY Final Res ult [facility] [address] [place] [id number], documented in this encounter Visit Diagnoses Diagnosis Hyperlipemia- Primary Other and unspecified hyperlipidemia documented in this encounter Additional Health Concerns Assessment Noted Time PHQ-9 Depression Total Score: 0 12/14/19 21 9:36 AM CDT documented as of this encounter Care Teams Field Coil Winder Relationship Specialty [place] [address] [address], [address] [place] [address] PCP - General Nurse Practitioner Family 07/20/2206/13 documented as of this encounter
--- OUTSIDE RECORDS SUMMARY | 2024-04-11 05:35 | XMS_ITS | Encounter Summary ---
Author Organization [facility] Address [address] [place] [address]. [place], [place] [address] [place] [address] Care Team Providers Care Station Repairer Name Role Phone Paul Mejia MD Primary Care Provider U johnshannan Encounter Details Date Type Department Care Team (Latest Contact Info) Description 02/07/2022 Travel Social History Tobacco Use Types Packs/Day [...] CDT Gender Identity Male 06/12/2021 5:16 AM CABIN AGENT Sexual Orientation Straight 06/28/2021 10 :21 AM CDT COVID-19 Exposure Response Date Recorded In the last 10 days, have nicole u been in contact with someone who was confirmed or suspected to have Coronavirus/COVID-19? No / Unsure 02/07/2022 8:47 AM CDT documented as of this encounter Plan of Treatment Upcoming Encounters Date Type Department Care Team (Late st Contact Info) Description 08/05/2024 10:00 AM CDT Office Visit [facility] Medical Group Family & Internal Medicine [facility] [address] [place] [address] [place] [address] [place] [address] 02/15/2025 10:45 AM CABIN AGENT Office Visit [facility] [address] [place] [address] Dale Shahid MD [facility], [address] [place] [address] documented as of this encounter Visit Diagnoses Not on filedocumented in this encounter Additional Health Concerns Assessment Noted Time PHQ-9 Depression Total Score: 0 12/14/19 21 9:36 AM CDT documented as of this encounter Care Teams Station Repairer Relationship Specialty Start Date End Date Paul Mejia MD PCP - General INTERNAL MEDICINE 12/13/20 07/19/22 documented as of this encounter
--- OUTSIDE RECORDS SUMMARY | 2024-04-11 05:35 | XMS_ITS | Encounter Summary ---
Author Organization [facility] Address [address] [place] [address]. [place], [place] [address] [place] [address] Care Team Providers Care Industrial Fabric Cutter Name Role Phone Paul Mejia MD Primary Care Provider U bashirailable Encounter Details Date Type Department Care Team (Late Contact Info) Description 08/29/2021 Orders Only [facility] Family & Internal Medicine [address] [address] Paul Mejia MD Social History Tobacco [...] CDT Gender Identity Male 06/12/2021 5:16 AM BREAD PAN GREASER Sexual Orientation Straight 06/28/2021 10 :21 AM CDT COVID-19 Exposure Response Date Recorded In the last 10 days, have yo u been in contact with someone who was confirmed or suspected to have Coronavirus/COVID-19? No / Unsure 08/28/2021 10:01 PM CDT documented as of this encounter Plan of Treatment Upcoming Encounters Date Type Department Care Team (Late st Contact Info) Description 08/05/2024 10:00 AM CDT Office Visit [facility] Medicine - [place] [address] [place] [address] [place] [address] [place] [address] 02/15/2025 10:45 AM BREAD PAN GREASER Office Visit [facility] [address] [place] [address] [facility], [address] [place] [address] documented as of this encounter Visit Diagnoses Diagnosis Other specified hypothyroidism documented in this encounter Additional Health Concerns Assessment Noted Time PHQ-9 Depression Total Score: 0 12/14/19 21 9:36 AM CDT documented as of this encounter Care Teams Industrial Fabric Cutter Relationship Specialty Start Date End Date Paul Mejia MD PCP - General INTERNAL MEDICINE 12/13/20 07/19/22 documented as of this encounter
--- OUTSIDE RECORDS SUMMARY | 2024-04-11 05:35 | XMS_ITS | Encounter Summary ---
Author Organization [facility] Address [address] [place] [address]. [place], [place] [address] [place] [address] Care Team Providers Care Dowel Maker Name Role Phone WongKacey martinez RASHMI Primary Care Provider [phone] Encounter Details Date Type Department Care Team (Latest Contact Info) Description 08/08/2022 Travel Social History Tobacco Use Types Packs/Day [...] CDT Gender Identity Male 06/12/2021 5:16 AM SHOWROOM CONSULTANT Sexual Orientation Straight 06/28/2021 10 :21 AM CDT COVID-19 Exposure Response Date Recorded In the last 10 days, have yo u been in contact with someone who was confirmed or suspected to have Coronavirus/COVID-19? No / Unsure 08/08/2022 8:45 AM CDT documented as of this encounter Plan of Treatment Upcoming Encounters Date Type Department Care Team (Late st Contact Info) Description 08/05/2024 10:00 AM CDT Office Visit [facility] Medical Group Family & Internal Medicine [facility] [address] [place] [address] [place] [address] [place] [address] 02/15/2025 10:45 AM SHOWROOM CONSULTANT Office Visit [place] [facility] [address] [place] [address] Dale Shahid MD [facility], [address] [place] [address] documented as of this encounter Visit Diagnoses Not on filedocumented in this encounter Additional Health Concerns Assessment Noted Time PHQ-9 Depression Total Score: 0 12/14/19 21 9:36 AM CDT documented as of this encounter Care Teams Dowel Maker Relationship Specialty Start [place] [address] [address], [address] [place] [address] PCP - General Nurse Practitioner Family 07/20/2206/13 documented as of this encounter
--- OUTSIDE RECORDS SUMMARY | 2024-04-11 05:35 | XMS_ITS | Encounter Summary ---
Author Organization [facility] Address [address] [place] [address]. [place] [address] [place] [address] Care Team Providers Care Conveyor Technician Name Role Phone Paul Mejia MD Primary Care Provider U navailable Reason for Visit * Reason Comments Finger Injury Encounter Details Date Type Department Care Team (Late st Contact Info) Description 01/06/2022 10:23 AM CDT - 01/06/2022 11:22 AM CDT Emergency [facility] Emergency Room [address] [place] [address] Kimberly Brown FNP [address] [place] [address] Finger Injury Discharge Disposition: Home or Self Care (Routine [...] CDT Gender Identity Male 06/12/2021 5:16 AM ISOLATION WASHER Sexual Orientation Straight 06/28/2021 10 :21 AM CDT COVID-19 Exposure Response Date Recorded In the last 10 days, have yo u been in contact with someone who was confirmed or suspected to have Coronavirus/COVID-19? No / Unsure 01/06/2022 10:17 AM CDT documented as of this encounter Last Filed Vital Signs Vital Sign Reading Time Taken Comments Blood Pressure 140/89 01/06/2022 10:24 AM CDT Pulse 93 01/06/2022 10:24 AM CDT Temperature 36.8 ??C (98.2 ??F) 01/06/2022 10:30 AM C DT Respiratory Rate 18 01/06/2022 10:24 AM CDT Oxygen Saturation 98% 01/06/2022 10:24 AM CDT Inhaled Oxygen Concentration - - Weight 115.7 kg (255 lb) 01/06/2022 10:24 AM CDT Height 182.9 cm (6') 01/06/2022 10:24 AM CDT Body Mass Index 34.58 01/06/2022 10:24 AM CDT documented in this encounter Discharge Instructions * Discharge Instructions* TRISTEN Amaya - 01/06/2022 11:07 AM CDT Keep area clean and dry. Start antibiotic today. documented in this encounter Medications at Time [...] TIMES DAILY. 180 tablet 1 10/23/2021 3 cephALEXin (KEFLEX) 500 MG capsule Take 1 capsule (500 mg total) by mouth 2 (two) times daily for 10 days. 20 capsule 01/06/2022 2 levothyroxine 125 MCG tabletIndications:Ot her specified hypothyroidism Take 1 tablet (125 mcg total) by mouth every morning. 90 tablet 1 08/29/2021 2 documented as of this encounter ED Notes * Kimberly Brown, DISABILITY MANAGER - 01/06/2022 10:36 AM CDT Images from the original note were not included. Chief Complaint Chief Complaint Patient presents with ??? Finger Injury History of Present Illness 66-year-old male into clinic for complaint of splinter in the tip of his finger. Patient stated that he had a piece of wood that went through and through his right index fin no bleeding. He did pull some of that out on 1 end of the wound. Still has some other on the other side. Still is in his finger. Has full range of motion of his finger unsure when his last tetanus shot was Medical History ALLERGIES: No Known Allergies MEDICATIONS: Prior to Admission medications Medication Sig Start Date End Date Taking? Authorizing Provider ASPIRIN EC 81 MG tablet Take 81 mg by mouth daily. 10/14/20 Yes Doc [facility] atorvastatin 80 MG tablet Take 80 mg by mouth nightly at bedtime. 10/14/20 Yes Doc [facility] BRILINTA 90 MG tablet Take 1 tablet (90 mg total) by mouth 2 (two) times daily. 01/04/21 Yes Dale Shahid MD CARVEDILOL 3.125 MG tablet TAKE 1 TABLET BY MOUTH 2 TIMES DAILY. 10/23/21 Yes Dale Shahid MD cephALEXin (KEFLEX) 500 MG capsule Take 1 capsule (500 mg total) by mouth 2 (two) times daily for 10 days. 01/06/22 01/16/22 Yes Kimberly Brown, DISABILITY MANAGER levothyroxine 125 MCG tablet Take 1 tablet (125 mcg total) by mouth every morning. 08/29/21 Yes Paul Mejia MD Multiple Vitamins-Minerals (CENTRUM SILVER) Tab Take 1 tablet by mouth daily. Yes Doc [facility] potassium citrate CR 10 MEQ (1080 MG) tablet Take 10 mEq by mouth 3 (three) times daily with meals.Yes Doc [facility] vitamin D3, cholecalciferol, 75 MCG (3000 UT) Tab tablet Take 3,000 Units by mouth daily. Yes Doc [facility] nitroglycerin 0.[address] 0.4 mg under the tongue. 10/14/20 Doc [facility] PAST MEDICAL HISTORY: Past Medical History: Diagnosis Date ??? CAD (coronary artery disease) ??? COVID-19 vaccine administered 2020 [place] ??? Disease of thyroid gland ??? Hypercholesterolemia ??? Influenza vaccine refused 12/13/2020 ??? Kidney stones PAST SURGICAL HISTORY: Past Surgical History: Procedure Laterality Date ??? CARDIAC STENTS 10/14/2020 ??? LITHOTRIPSY FAMILY HISTORY: Family History Problem Relation Name Age of Onset ??? Diabetes Mother ??? Heart Disease Father ??? Open Heart Father ??? Diabetes Brother ??? Heart Disease Brother ??? Kidney Disease Brother ??? Other (cardiac stent) Brother ??? Heart Attack Paternal Grandmother ??? Heart Attack Paternal Grandfather SOCIAL HISTORY: Social History Tobacco Use ??? Smoking status: Never Smoker ??? Smokeless tobacco: Never Used Vaping Use ??? Vaping Use: Never used Substance Use Topics ??? Alcohol use: Not Currently Comment: occasional glass of wine ??? Drug use: No Review of Systems Review of Systems Constitutional: Negative. Respiratory: Negative. Musculoskeletal: Negative. Skin: Positive for wound. Neurological: Negative. Physical Exam Filed Vitals: 01/06/22 1024 01/06/22 1030 BP: (!) 140/89 Pulse: 93 Resp: 18 Temp: 98.2 ??F (36.8 ??C) TempSrc: Temporal Oral SpO2: 98% Weight: 115.7 kg (255 lb) Height: 6' (1.829 m) Physical Exam Vitals reviewed. Constitutional: Appearance: Normal appearance. HENT: Head: Normocephalic. Cardiovascular: Rate and Rhythm: Normal rate. Pulses: Normal pulses. Pulmonary: Effort: Pulmonary effort is normal. Musculoskeletal: General: Normal range of motion. Hands: Skin: Capillary Refill: Capillary refill takes less than 2 seconds. Neurological: Mental Status: He is alert and oriented to person, place, and time. Sensory: No sensory deficit. Psychiatric: Mood and Affect: Mood normal. Behavior: Behavior normal. Diagnostic Studies / Procedures ELECTROCARDIOGRAMS: No results found for this visit on 01/06/22. LABORATORY STUDIES: No results found for this visit on 01/06/22. IMAGING STUDIES No orders to display ED Course / Medical Decision Making MDM Number of Diagnoses or Management Options Puncture wound: established and worsening Diagnosis management comments: Patient presented with piece of wood that went through his finger Had pulled part of it out still has part of it in finger. Was unable to get it out. While patient was waiting for radiology patient actually pushed it all the way through he was sitting in the exam room. Went ahead and cleaned out the area. Updated his tetanus shot and discharged him on antibiotics today. Risk of Complications, Morbidity, and/or Mortality Presenting problems: moderate Diagnostic procedures: low Management options: moderate General comments: Reviewed plan of care with patient to include diagnoses, Test results, medicationand plan of care. Pt verbalized understanding. All questions answered. Patient Progress Patient progress: stable ED Course as of 01/06/22 1129 Sat Jan 06, 2022 1101 Patient came was waiting on Rad and pulled out the splinter in waiting room [MB] 1102 Advised still needs cleaned [MB] ED Course User Index [MB] TRISTEN Amaya Clinical Impression Puncture wound (Primary) Disposition: Discharge TRISTEN Amaya 01/06/22 1129 Cosigned by Anna [place] MD at 01/06/2022 7:21 PM CDT documented in this encounter Plan of Treatment Upcoming Encounters Date Type Department Care Team (Late st Contact Info) Description 08/05/2024 10:00 AM CDT Office Visit [facility] Family & Internal Medicine - [place] [address] [place] [address] [place] [address] [place] [address] 02/15/2025 10:45 AM ISOLATION WASHER Office Visit [facility] [address] [place] [address] Dale Shahid MD [facility], [address] [place] [address] documented as of this encounter Visit Diagnoses Diagnosis Puncture wound- Primary Open wound(s) (multiple) of unspecified site(s), without mention of complication documented in this encounter Active and Recently Administered Medications Additional Health Concerns Assessment Noted Time PHQ-9 Depression Total Score: 0 12/14/19 9:36 AM CDT documented as of this encounter Care Teams Conveyor Technician Relationship Specialty Start Date End Date Paul Mejia MD PCP - General INTERNAL MEDICINE 12/13/20 07/19/22 documented as of this encounter
--- OUTSIDE RECORDS SUMMARY | 2024-04-11 05:35 | XMS_ITS | Encounter Summary ---
Author Organization [facility] Address [address] [place] [address]. [place], [place] [address] [place] [address] Care Team Providers Care Tele Marketing Executive Name Role Phone Paul Mejia MD Primary Care Provider U johnshannan Encounter Details Date Type Department Care Team (Latest Contact Info) Description 02/20/2022 Travel Social History Tobacco Use Types Packs/Day [...] CDT Gender Identity Male 06/12/2021 5:16 AM CUT OFF MAN Sexual Orientation Straight 06/28/2021 10 :21 AM CDT COVID-19 Exposure Response Date Recorded In the last 10 days, have nicole u been in contact with someone who was confirmed or suspected to have Coronavirus/COVID-19? No / Unsure 02/20/2022 10:23 AM CUT OFF MAN documented as of this encounter Plan of Treatment Upcoming Encounters Date Type Department Care Team (Late st Contact Info) Description 08/05/2024 10:00 AM CDT Office Visit [facility] Family & Internal Medicine [facility] [address] [place] [address] [place] [address] [place] [address] 02/15/2025 10:45 AM CUT OFF MAN Office Visit [facility] [address] [place] [address] Dale Shahid MD [facility], [address] [place] [address] documented as of this encounter Visit Diagnoses Not on filedocumented in this encounter Additional Health Concerns Assessment Noted Time PHQ-9 Depression Total Score: 0 12/14/19 21 9:36 AM CDT documented as of this encounter Care Teams Tele Marketing Executive Relationship Specialty Start Date End Date Paul Mejia MD PCP - General INTERNAL MEDICINE 12/13/20 07/19/22 documented as of this encounter
--- OUTSIDE RECORDS SUMMARY | 2024-04-11 05:35 | XMS_ITS | Encounter Summary ---
Author Organization [facility] Address [address] [place] [address]. [place], [place] [id number] [place] [address] Care Team Providers Care Casino Attendant Name Role Phone Kacey Lafleur TACTICAL INTELLIGENCE OFFICER Primary Care Provider [phone] Encounter Details Date Type Department Care Team (Late Contact Info) Description 02/05/2023 11:00 AM CDT Laboratory Only [facility] Family & Internal Medicine [facility] [address] [place] [address] [place] [address] [facility], [address] [place] [address] Social History Tobacco Use Types Packs/Day Years [...] CDT Gender Identity Male 06/12/2021 5:16 AM CORRECTION WORKER Sexual Orientation Straight 06/28/2021 10 :21 AM CDT documented as of this encounter Plan of Treatment Upcoming Encounters Date Type Department Care Team (Late st Contact Info) Description 08/05/2024 10:00 AM CDT Office Visit [facility] Family & Internal Medicine [address] [place] [address] [place] [address] [place] [address] 02/15/2025 10:45 AM CORRECTION WORKER Office Visit [facility] [address] [place], [place] [phone] Dale Shahid MD [facility], [address] [place] [address] documented as of this encounter Procedures Procedure Name Priority Date/Time Associated Diagnosis Comments VENIPUNC ARM DRAW Routine 02/05/2023 10: 50 AM CDT Other specified hypothyroidism documented in this encounter Visit Diagnoses Diagnosis Other specified hypothyroidism- Primary documented in this encounter Additional Health Concerns Assessment Noted Time PHQ-9 Depression Total Score: 0 12/14/19 9:36 AM CDT documented as of this encounter Care Teams Casino Attendant Relationship Specialty Start [place] [address] [facility], [facility] [address] [place] [address] PCP - General Nurse Practitioner Family 07/20/2206/13 documented as of this encounter
--- OUTSIDE RECORDS SUMMARY | 2024-04-11 05:35 | XMS_ITS | Encounter Summary ---
Author Organization [facility] Address [address] [place] [address]. [place], [place] [address] [place] [address] Care Team Providers Care Exceptional Student Education Aide Name Role Phone Jennietemi Kacey RASHMI Primary Care Provider Reason for Visit * Reason Comments Coronary Artery Disease Encounter Details Date Type Department Care Team (Late st Contact Info) Description 08/08/2022 9:15 AM CDT Office Visit [facility] [address] [place] [address] Dale Shahid MD [facility], [address] [place], [place] [id number] Coronary Artery Disease Social History Tobacco Use Types Packs/Day Years [...] CDT Gender Identity Male 06/12/2021 5:16 AM 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 No / Unsure 08/08/2022 8:45 AM CDT documented as of this encounter Last Filed Vital Signs Vital Sign Reading Time Taken Comments Blood Pressure 130/74 08/08/2022 8:46 AM CDT Pulse 73 08/08/2022 8:46 AM CDT Temperature - - Respiratory Rate - - Oxygen Saturation - - Inhaled Oxygen Concentration - - Weight 123.4 kg (272 lb) 08/08/2022 8:46 AM CDT Height 182.9 cm (6') 08/08/2022 8:46 AM CDT Body Mass Index 36.89 08/08/2022 8:46 AM CDT documented in this encounter Progress Notes * Dale Shahid MD - 08/08/2022 9:15 AM CDT Reason for Visit: Coronary Artery Disease History of Present Illness: Mr. Zhang is a 66 year old male with a PMH significant for CAD with NSTEMI (coronary angiography 10/14/20 with 99% mid circumflex disease s/p 3.5x38 mm Resoluted TAWANNA, 40% mid LAD disease, normal leftmain and RCA), dyslipidemia (over 20 years), mild aortic insufficiency, obesity class II, CORIN on CPAP machine, hypothyroidism, osteoarthritis and nephrolithiasis who presents for a follow up visit. He is due do to have his left knee replaced on 10/29/22, now bone on bone. He tries to walk but it is challenging. They walk 1-1.5 miles at least 4 times/week. No chest pain or discomfort. No significant dyspnea on exertion. No edema, orthopnea or PND. Recommendations and Plan: 1. CAD with NSTEMI: S/p TAWANNA to the mid circumflex 10/14/20, has known 40% mid LAD disease per coronary angiography 10/14/20. Completed dual antiplatelet therapy with aspirin 81mg and ticagrelor 90mg bid for at least 12 months though 10/2021 due to acute coronary syndrome, continue aspirin lifelong. LDL 48mg/dL on 07/25/33 after adding ezetimibe 10mg qd to atorvastatin 80mg qhs for goal LDL <70mg/dL.Echo 11/18/20 with normal LV systolic function 60-65%, mild aortic regurgitation, indeterminate diastolic function. Continue carvedilol 3.125mg bid. Valsartan was discontinued per his wishes since he had a normal LVEF at the time of the NSTEMI. Continue his physical activity and dietary changes. He has completed cardiac rehabilitation. Continue CAD risk factor modification. 2. Dyslipidemia: LDL 48mg/dL on 07/25/33 after adding ezetimibe 10mg qd to atorvastatin 80mg qhs forgoal LDL <70mg/dL. Continue lifestyle modification. 3. Mild aortic insufficiency: Last echo 11/17/20. Well controlled BP, follow up echo in 3 years. 4. Prediabetes: Continue lifestyle modification including cutting down on carbohydrates and increasing exercise. 5. Preoperative cardiovascular risk stratification: He can achieve > 4 METs, can proceed with the upcoming left knee surgery without needing further ischemic evaluation. Follow up in 6 months. Medications: Current Outpatient Medications: ASPIRIN EC 81 MG tablet, Take 1 tablet (81 mg total) by mouth daily., Disp: , Rfl: atorvastatin (LIPITOR) 80 MG tablet, TAKE 1 TABLET BY MOUTH EVERYDAY AT BEDTIME, Disp: 90 tablet, Rfl: 0 carvedilol (COREG) 3.125 MG tablet, TAKE 1 TABLET BY MOUTH TWICE A DAY, Disp: 180 tablet, Rfl: 1 Coenzyme Q10 (COQ10) 100 MG Cap, Take by mouth daily., Disp: , Rfl: ezetimibe (ZETIA) 10 MG tablet, TAKE 1 TABLET BY MOUTH EVERY DAY, Disp: 90 tablet, Rfl: 0 levothyroxine (SYNTHROID) 125 MCG tablet, Take 1 tablet (125 mcg total) by mouth every morning., Disp: 90 tablet, Rfl: 1 meloxicam (MOBIC) 15 MG tablet, Take 1 [...] (coronary artery disease) COVID-19 vaccine administered 2020 [employer] Disease of thyroid gland Hypercholesterolemia Influenza vaccine refused 12/13/2020 Kidney stones Past Surgical History: Procedure Laterality Date CARDIAC STENTS 10/14/2020 LITHOTRIPSY Social History Tobacco Use Smoking status: Never Smokeless tobacco: Never Vaping Use Vaping Use: Never used Substance Use Topics Alcohol use: Not Currently Comment: occasional glass of wine Drug use: No Family History Problem Relation Name Age of Onset Diabetes Mother Heart Disease Father Open Heart Father Diabetes Brother Heart Disease Brother Kidney Disease Brother Other (cardiac stent) Brother Heart Attack Paternal Grandmother Heart Attack Paternal Grandfather Family Status Relation Name Status Mother Father Brother (Not Specified) PGM (Not Specified) PGF (Not Specified) Review of Systems Constitutional: Negative for recent unintentional weight gain, recent unintentional weight loss andnew or significant fatigue. HENT: Negative for new or significant hearing loss. Eyes: Negative for blurred vision and double vision. Respiratory: Negative for cough, new or significant shortness of breath and snoring. Cardiovascular: See HPI. Negative for chest pain, palpitations, leg swelling and PND. Gastrointestinal: Negative for heartburn, nausea, vomiting, blood in stool and melena. Genitourinary: Negative for dysuria. Musculoskeletal: Positive for joint stiffness/pain. Negative for myalgias. Skin: Negative for rash. Neurological: Negative for tingling/numbness and focal weakness. Endo/Heme/Allergies: Negative for new or significant bruising/bleeding and polydipsia. Psychiatric/Behavioral: Negative for depression and new or significant memory loss. Vitals: 08/08/22 0846 BP: 130/74 Pulse: 73 Weight: 123.4 kg (272 lb) Height: 6' (1.829 m) Body mass index is 36.89 kg/m??. Cardiac Exam Rate/Rhythm: Normal rate and [...] normal. Breath sounds normal. No wheezes. Skin: No rash. No cyanosis. No clubbing. No xanthoma. Musculoskeletal: No kyphosis. Normal ROM. Neurological: Alert. Oriented x 3. Appropriate mood and affect. Normal motor skills. Normal gait. Comments: Diagnoses/Impression: 1. CAD in [place] artery 2. Dyslipidemia 3. Prediabetes 4. Preoperative cardiovascular examination 5. Mild aortic insufficiency Referring Provider: No ref. provider found PCP: KACEY LAFLEUR NP documented in this encounter Plan of Treatment Upcoming Encounters Date Type Department Care Team (Late st Contact Info) Description 08/05/2024 10:00 AM CDT Office Visit [facility] Family & Internal Medicine [facility] [address] [place] [address] Amado Mathew [place] [address] [place] [address] 02/15/2025 10:45 AM PUBLIC AFFAIRS SPECIALIST Office Visit [facility] [address] [place] [address] Dale Shahid MD [facility], [address] [place] [address] documented as of this encounter Visit Diagnoses Diagnosis CAD in [place] artery- Primary Coronary atherosclerosis of [place] coronary artery Dyslipidemia Other and unspecified hyperlipidemia Prediabetes Other abnormal glucose Preoperative cardiovascular examination Pre-operative cardiovascular examination Mild aortic insufficiency Aortic valve disorders documented in this encounter Additional Health Concerns Assessment Noted Time PHQ-9 Depression Total Score: 0 12/14/19 9:36 AM CDT documented as of this encounter Care Teams Exceptional Student Education Aide Relationship Specialty [place] [address] [address], [address] [place] [address] PCP - General Nurse Practitioner Family 07/20/2206/13 documented as of this encounter
--- OUTSIDE RECORDS SUMMARY | 2024-04-11 05:35 | XMS_ITS | Encounter Summary ---
Author Organization [facility] Address [address] [place] [address]. 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 Sexual Orientation Straight 06/28/2021 10 :21 AM [...] Description 08/05/2024 10:00 AM CDT Office Visit [facility] Family & Internal Medicine [facility] [address] [place] [address] [place] [address] [place], [place] [id number] 02/15/2025 10:45 AM TRIBAL DELEGATE Office Visit [facility] [address] [place] [address] Dale Shahid MD [facility], [address] [place] [address] documented as of this encounter Results * LIPID PANEL (01/17/2022 7:55 AM CDT) [facility] Signature CHOLESTEROL 146 <200.0 MG/DL 01/17/2022 1:53 PM CDT [facility] TRIGLYCERIDES 97 <150 MG/DL 01/17/2022 1:53 PM CDT [facility] HDL 46 >40.0 MG/DL 01/17/2022 1:53 PM CDT [facility] LDL (CALCULATED) 81 <100 MG/DL 01/18/20 1:53 PM CDT [facility] NON HDL CHOLESTEROL 100 <130 MG/DL 01/17 1:53 PM CDT [facility] CHOL/HDL RATIO 3.2 0.0 - 4.5 01/17/2022 1:53 PM T [facility] VLDL CALCULATION 19 5 - 55 MG/DL 01/17/2022 1:53 PM CDT [facility] LIPID INTERPRETATION 01/17/2022 1:53 PM CDT [facility] Comment: NIH CONCENSUS REPORT RECOMMENDATIONS: [...] Dale Shahid MD LABORATORY Final Res ult [facility] () [facility] [address] [place] [address], * (ABNORMAL) COMPREHENSIVE METABOLIC PANEL (01/17/2022 7:55 AM CDT) [facility] GLUCOSE 89 70 - 99 MG/DL 01/17/2022 1:53 PM CDT [facility] BUN 25(H) 7 - 18 MG/DL 01/17/2022 1:53 PM CDT [facility] CREATININE S/P/B 1.27 0.7 - 1.3 MG/DL 01/17/2022 1:53 PM CDT [facility] SODIUM S/P/B 142 136 - 145 MMOL/L 01/17/2022 1:53 PM CDT [facility] POTASSIUM S/P/B 4.4 3.5 - 5.1 MMOL/L 01/17/2022 1:53 PM CDT [facility] CHLORIDE S/P/B 105 100 - 108 MMOL/L 01/17/2022 1:53 PM CDT [facility] CO2 27.2 21 - 32 MMOL/L 01/17/2022 1:53 PM CDT [facility] CALCIUM S/P/B 8.6 8.5 - 10.1 MG/DL 01/17/2022 1:53 PM CDT [facility] BILIRUBIN TOTAL S/P/B 1.1 0.2 - 1.2 MG/DL 01/17/2022 1:53 PM T [facility] TOTAL PROTEIN S/P/B 6.6 6.4 - 8.2 G/DL 01/17/2022 1:53 PM T [facility] ALBUMIN S/P/B 3.9 3.4 - 5.0 G/DL 01/17/2022 1:53 PM CDT [facility] AST 18 15 - 37 U/L 01/17/2022 1:53 PM CDT [facility] ALT 35 16 - 60 U/L 01/17/2022 1:53 PM CDT [facility] ALKALINE PHOSPHATASE S/P/B 71 50 - 136 U/L 01/17/2022 1:53 PM CDT [facility] ANION GAP 9.8 5 - 15 MMOL/L 01/17/2022 1:53 PM CDT [facility] BUN CREATININE RATIO 19.7 6 - 26 01/17/2022 1:53 PM T [facility] A/G RATIO 1.4 1.0 - 2.0 RATIO 01/17/2022 1:53 PM T [facility] GFR ESTIMATE 62(L) >90 ML/MIN/1.7 3 M2 01/17/2022 1:53 PM CDT [facility] Comment: NOTE: eGFR is not calculated for patients <18 years of age. This is an estimated GFR calculation using the new CKD EPI creatinine equation without race and so does not require a correction factor for race. This estimated GFR should not be used for calculating drug doses. 01/17/2022 7:55 AM CDT Dale Shahid MD LABORATORY Final Res ult [facility] [address] [place] [address], documented in this encounter Visit Diagnoses Diagnosis Dyslipidemia- Primary Other and unspecified hyperlipidemia documented in this encounter Additional Health Concerns Assessment Noted Time PHQ-9 Depression Total Score: 0 12/14/19 9:36 AM CDT documented as of this encounter Care Teams Pulp Screen Operator Relationship Specialty Start Date End Date Paul Mejia MD PCP - General INTERNAL MEDICINE 12/13/20 07/19/22 documented as of this encounter
--- OUTSIDE RECORDS SUMMARY | 2024-04-11 05:35 | XMS_ITS | Encounter Summary ---
Author Organization [facility] Address [address] [place] [address]. 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 No / Unsure 10/31/2021 9:27 AM CDT documented as of this encounter Plan of Treatment Upcoming Encounters Date Type Department Care Team (Late st Contact Info) Description 08/05/2024 10:00 AM CDT Office Visit [facility] Family & Internal Medicine [facility] [address] [place] [address] [place] [address] [place] [address] 02/15/2025 10:45 AM DRAFTER GEOPHYSICAL Office Visit [facility] [address] [place] [address] Dale Shahid MD [facility], [address] [place] [address] documented as of this encounter Visit Diagnoses Not on filedocumented in this encounter Additional Health Concerns Infection Onset Date Last Indicated Resolved Time COVID-19 Rule Out 10/31/2021 10/31/2021 10/31/2021 12:12 PM CDT Assessment Noted Time PHQ-9 Depression Total Score: 0 12/14/19 9:36 AM CDT documented as of this encounter Care Teams Commercial Litigation Paralegal Relationship Specialty Start Date End Date Paul Mejia MD PCP - General INTERNAL MEDICINE 12/13/20 07/19/22 documented as of this encounter
--- OUTSIDE RECORDS SUMMARY | 2024-04-11 05:35 | XMS_ITS | Encounter Summary ---
Author Organization [facility] Address [address] [place] [address]. [place], [place] [address] [place] [id number] Care Team Providers Care Bakery Worker Conveyor Line Name Role Phone Kacey Lafleur HOME HEALTH LPN Primary Care Provider [phone] Reason for Visit * Reason Comments Follow Up 6 month Hypothyroidism Encounter Details Date Type Department Care Team (Latest Contact Info) Description 02/05/2023 10:20 AM CDT Office Visit [facility] Family & Internal Medicine [address] [address] Kacey Lafleur NP [address] [place] [address] Follow Up (6 month ); Hypothyroidism Social History Tobacco Use Types Packs/Day Years Used Date Smoking Tobacco: Never Passive Smoke Exposure: Past Smokeless Tobacco: Never Tobacco Cessation:Counseling Given: No 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 Alcohol Use Standard Drinks/Week Comments Not Currently 0 (1 standard drink = 0.6 oz pur e alcohol) occasional glass of wine PHQ-2 Answer Date Recorded Patient Health Questionnaire-2 Score 0 08/08/2022 Sex and Gender Information Value Date Recorded Sex Assigned at Not on file Legal Sex Male 7:33 PM CDT Gender Identity Male 06/12/2021 5:16 AM TYPING SECRETARY Sexual Orientation Straight 06/28/2021 10 :21 AM CDT documented as of this encounter Last Filed Vital Signs Vital Sign Reading Time Taken Comments Blood Pressure 141/89 02/05/2023 10:23 AM CDT Pulse 64 02/05/2023 10:16 AM CDT Temperature 36.2 ??C (97.2 ??F) 02/05/2023 10:16 AM C DT Respiratory Rate 12 02/05/2023 10:16 AM CDT Oxygen Saturation 98% 02/05/2023 10:16 AM CDT Inhaled Oxygen Concentration - - Weight 123.8 kg (273 lb) 02/05/2023 10:16 AM CDT Height 182.9 cm (6') 02/05/2023 10:16 AM CDT Body Mass Index 37.03 02/05/2023 10:16 AM CDT documented in this encounter Progress Notes * Kacey Lafleur NP - 02/05/2023 10:20 AM CDTAddended by: KACEY LAFLEUR on: 02/11/2023 07:22 AM Modules accepted: Orders * Kacey Lafleur NP - 02/05/2023 10:20 AM CDT Reason for Visit: Follow Up (6 month ) and Hypothyroidism History of Present Illness: Hypothyroidism-- taking med as rx. No concerns. CAD-- taking meds as rx. No concerns. Managed by cardiology. ROS: Review of Systems Constitutional: Negative for fever, malaise/fatigue and weight loss. Respiratory: Negative for cough and shortness of breath. Cardiovascular: Negative for chest pain, palpitations and leg swelling. Gastrointestinal: Negative for abdominal pain, constipation and diarrhea. Musculoskeletal: Negative for joint pain and myalgias. Skin: Negative for rash. Psychiatric/Behavioral: Negative for depression and suicidal ideas. The patient is not nervous/anxious. PHQ-9: 10/31/2021 9:37 AM 08/08/2022 11:15 AM PHQ2/PHQ 9 DEPRESSION SCREEN QUESTIONAIRE Little interest or pleasure in doing things Not at all Feeling down, depressed, or hopeless Not at all Patient Health Questionnaire-2 Score 0 LITTLE INTEREST OR PLEASURE IN DOING THINGS 0-Not at All FEELING DOWN, DEPRESSSED,OR HOPELESS 0-Not at All PHQ2 DEPRESSION TOTAL SCORE 0 Medications: Current Outpatient Medications: ASPIRIN EC 81 [...] Take by mouth daily., Disp: , Rfl: Efinaconazole (JUBLIA) 10 % Solution, Apply 1 Application. topically daily., Disp: 8 mL, Rfl: 1 ezetimibe (ZETIA) 10 MG tablet, TAKE 1 TABLET BY MOUTH EVERY DAY, Disp: 90 tablet, Rfl: 1 levothyroxine (SYNTHROID) 125 MCG tablet, TAKE 1 TABLET BY MOUTH EVERY MORNING, Disp: 90 tablet, Rfl: 0 melatonin 5 MG tablet, , Disp: , Rfl: meloxicam (MOBIC) 15 MG tablet, Take 1 tablet (15 mg total) by mouth daily., Disp: , Rfl: Multiple Vitamins-Minerals (CENTRUM SILVER) Tab, Take 1 tablet by mouth daily. , Disp: , Rfl: potassium citrate CR 10 MEQ (1080 MG) tablet, Take 1 tablet (10 mEq total) by mouth 3 (three) timesdaily with meals., Disp: , Rfl: vitamin D3, cholecalciferol, 75 MCG (3000 UT) Tab tablet, Take 1 tablet (3,000 Units total) by mouth daily., Disp: , Rfl: nitroglycerin 0.4 MG SL tablet, Place 1 tablet (0.4 mg total) under the tongue. 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 Constitutional: Appearance: Normal appearance. He is obese. HENT: Head: Normocephalic and atraumatic. Right Ear: Tympanic membrane and ear canal normal. Left Ear: Tympanic membrane and ear canal normal. Eyes: Extraocular Movements: Extraocular movements intact. Conjunctiva/sclera: Conjunctivae normal. Pupils: Pupils are equal, round, and reactive to light. Neck: Thyroid: No thyroid mass or thyromegaly. Trachea: Trachea normal. Cardiovascular: Rate and Rhythm: Normal rate and regular rhythm. Heart sounds: Normal heart sounds. Pulmonary: Effort: Pulmonary effort is normal. Breath sounds: Normal breath sounds. Abdominal: General: Bowel sounds are normal. There is no abdominal bruit. Palpations: Abdomen is soft. There is no hepatomegaly, splenomegaly or mass. Tenderness: There is no abdominal tenderness. Musculoskeletal: Right lower leg: No edema. Left lower leg: No edema. Comments: Bilateral toenail fungus to great toes. Lymphadenopathy: Cervical: No cervical adenopathy. Skin: General: Skin is warm and dry. Neurological: Mental Status: He is alert. Psychiatric: Behavior: Behavior is cooperative. Diagnoses/Impression: 1. Other specified hypothyroidism THYROID STIM HORMONE, TSH 2. Coronary artery disease involving [place] heart without angina pectoris, unspecified vessel or lesion type 3. Elevated blood pressure reading 4. Onychomycosis Efinaconazole (JUBLIA) 10 % Solution 5. Class 2 obesity due to excess calories without serious comorbidity with body mass index (BMI) of37.0 to 37.9 in adult Recommendations and Plan: 1. Other specified hypothyroidism Continue medication as prescribed. F/u in 6mo. - THYROID STIM HORMONE, TSH; Future 2. Coronary artery disease involving [place] heart without angina pectoris, unspecified vessel or lesion type Continue medication as prescribed. Has f/u with cardiology tomorrow. 3. Elevated blood pressure reading Goal bp is 140/90. Recommend low salt diet. Monitor bp at home and bring readings to next office visit. F/u in 6mo. 4. Onychomycosis - Efinaconazole (JUBLIA) 10 % Solution; Apply 1 Application. topically daily. Dispense: 8 mL; Refill: 1 5. Class 2 obesity due to excess calories without serious comorbidity with body mass index (BMI) of37.0 to 37.9 in adult Encouraged 6 small meals per day that are high in protein, low in carbs, low sugar. Limit sugary drinks. Increase water intake. Increase regular aerobic exercise, such as walking. Walk at least 10,000 steps/day. Keep a journal of exercise, food intake, and weights. I personally spent a total of 30 minutes on the day of the encounter. This includes [id number] and [id number] time I provided on the day of the encounter & excludes time spent performing separately reportable services. OCTAVIO BARNHART documented in this encounter Plan of Treatment Upcoming Encounters Date Type Department Care Team (Late st Contact Info) Description 08/05/2024 10:00 AM CDT Office Visit [facility] Family & Internal Medicine [facility] [id number] [place] [address] Amado [place] [id number] [place] [address] 02/15/2025 10:45 AM TYPING SECRETARY Office Visit [facility] [address] [place] [address] Dale Shahid MD Three [facility], [address] [place] [address] documented as of this encounter Results * THYROID STIM HORMONE, TSH (02/05/2023 10:50 AM CDT) TSH 1.606 0.358 - 3.74 uIU/ML 02/05/2023 1:33 PM CDT [facility] Comment: HIGH DOSES OF BIOTIN MAY INTERFERE WITH THIS TEST RESULT. CORRELATION TO CLINICAL HISTORY AND PRESENTATION RECOMMENDED. 02/05/2023 10:5 0 AM CDT us Kacey Lafleur NP LABORATORY Final Result [facility] [address] [place] [address], documented in this encounter Visit Diagnoses Diagnosis Other specified hypothyroidism- Primary Coronary artery disease involving [place] heart without angina pectoris, unspecified vessel or lesion type Elevated blood pressure reading Elevated blood pressure reading without diagnosis of hypertension Onychomycosis Dermatophytosis of nail Class 2 obesity due to excess calories without serious comorbidity with body mass index (BMI) of 37.0 to 37.9 in adult documented in this encounter Additional Health Concerns Assessment Noted Time PHQ-9 Depression Total Score: 0 12/14/19 21 9:36 AM CDT documented as of this encounter Care Teams Bakery Worker Conveyor Line Relationship Specialty Start [place] [address] [address], [address] [place] [address] PCP - General Nurse Practitioner Family 07/20/2206/13 documented as of this encounter
--- OUTSIDE RECORDS SUMMARY | 2024-04-11 05:35 | XMS_ITS | Encounter Summary ---
Author Organization [facility] Address [address] [place] [address]. [place], [place] [address] [place] [address] Care Team Providers Care Mica Miner Blasting Name Role Phone Paul Cain MD Primary Care Provider U navailable Reason for Visit * Reason Comments Follow Up Encounter Details Date Type Department Care Team (Late st Contact Info) Description 02/20/2022 10:40 AM TECHNICAL ADMINISTRATOR [facility] Family [facility] Internal Medicine [address] [address] Paul Cain MD Follow Up Social History Tobacco Use Types Packs/Day Years Used Date Smoking Tobacco: Never Smokeless Tobacco: Never Tobacco Cessation:Counseling Given: No Alcohol Use Standard Drinks/Week Comments Not Currently [...] CDT Gender Identity Male 06/12/2021 5:16 AM TECHNICAL ADMINISTRATOR Sexual Orientation Straight 06/28/2021 10 :21 AM CDT COVID-19 Exposure Response Date Recorded In the last 10 days, have yo u been in contact with someone who was confirmed or suspected to have Coronavirus/COVID-19? No / Unsure 02/20/2022 10:23 AM TECHNICAL ADMINISTRATOR documented as of this encounter Last Filed Vital Signs Vital Sign Reading Time Taken Comments Blood Pressure 130/82 02/20/2022 10:27 AM TECHNICAL ADMINISTRATOR Pulse 66 02/20/2022 10:27 AM TECHNICAL ADMINISTRATOR Temperature 36.2 ??C (97.2 ??F) 02/20/2022 10:[address] Respiratory Rate 16 02/20/2022 10:27 AM TECHNICAL ADMINISTRATOR Oxygen Saturation 99% 02/20/2022 10:27 AM TECHNICAL ADMINISTRATOR Inhaled Oxygen Concentration - - Weight 117 kg (258 lb) 02/20/2022 10:27 AM TECHNICAL ADMINISTRATOR Height 182.9 cm (6') 02/20/2022 10:27 AM TECHNICAL ADMINISTRATOR Body Mass Index 34.99 02/20/2022 10:27 AM TECHNICAL ADMINISTRATOR documented in this encounter Progress Notes * Paul Cain MD - 02/20/2022 10:40 AM CST Reason for Visit: Follow Up Filed Vitals: 02/20/22 1027 BP: 130/82 Pulse: 66 Resp: 16 Temp: 97.2 ??F (36.2 ??C) TempSrc: Temporal SpO2: 99% Weight: 117 kg (258 lb) Height: 6' (1.829 m) Body mass index is 34.99 kg/m??. History of Present Illness: HPI good morning office visit with Mr. Radha Zhang pleasant 66-year-old gentleman with history ofcoronary artery heart disease he sees a sales lead every so often prediabetes mixed hyperlipidemia and hypothyroidism ROS: Review of Systems Constitutional: Negative. Respiratory: Negative. Cardiovascular: Negative. All other systems reviewed and are negative. Medications: Current Outpatient Medications: ??? ASPIRIN EC 81 MG tablet, Take 81 mg by mouth daily., Disp: , Rfl: ??? atorvastatin (LIPITOR) 80 MG tablet, Take 1 tablet (80 mg total) by mouth nightly at bedtime., Disp: 30 tablet, Rfl: 2 ??? CARVEDILOL 3.125 MG tablet, TAKE 1 TABLET BY MOUTH 2 TIMES DAILY., Disp: 180 tablet, Rfl: 1 ??? Coenzyme Q10 (COQ10) 100 MG Cap, Take by mouth daily., Disp: , Rfl: ??? ezetimibe (ZETIA) 10 MG tablet, Take 1 tablet (10 mg total) by mouth daily., Disp: 90 tablet, Rfl: 1 ??? levothyroxine 125 MCG tablet, Take 1 tablet (125 mcg total) by mouth every morning., Disp: 90 tablet, Rfl: 1 ??? Multiple Vitamins-Minerals (CENTRUM SILVER) Tab, Take 1 tablet by mouth daily. , Disp: , Rfl: ??? potassium citrate CR 10 MEQ (1080 MG) tablet, Take 10 mEq by mouth 3 (three) times daily with meals. , Disp: , Rfl: ??? vitamin D3, cholecalciferol, 75 MCG (3000 UT) Tab tablet, Take 3,000 Units by mouth daily., Disp: , Rfl: ??? nitroglycerin 0.4 MG SL tablet, Place 0.4 mg under the tongue., Disp: , Rfl: No Known Allergies Past Medical History: Diagnosis Date ??? CAD (coronary artery disease) ??? COVID-19 vaccine administered 2020 [place] ??? Disease of thyroid gland ??? Hypercholesterolemia ??? Influenza vaccine refused 12/13/2020 ??? Kidney stones Past Surgical History: Procedure Laterality Date ??? CARDIAC STENTS 10/14/2020 ??? LITHOTRIPSY Social History Socioeconomic History ??? Marital status: Tobacco Use ??? Smoking status: Never Smoker ??? Smokeless tobacco: Never Used Vaping Use ??? Vaping Use: Never used Substance and Sexual Activity ??? Alcohol use: Not Currently Comment: occasional glass of wine ??? Drug use: No Other Topics Concern ??? Caffeine Concern No ??? Special Diet No ??? Exercise Yes Family History Problem Relation Name Age of [...] PGM (Not Specified) ??? PGF (Not Specified) Physical Exam Constitutional: Appearance: Normal appearance. Cardiovascular: Rate and Rhythm: Normal rate and regular rhythm. Pulses: Normal pulses. Heart sounds: Normal heart sounds. Pulmonary: Effort: Pulmonary effort is normal. Breath sounds: Normal breath sounds. Abdominal: Palpations: Abdomen is soft. Musculoskeletal: General: Normal range of motion. Cervical back: Normal range of motion and neck supple. Skin: General: Skin is warm. Neurological: General: No focal deficit present. Mental Status: He is alert and oriented to person, place, and time. Psychiatric: Mood and Affect: Mood normal. Behavior: Behavior normal. Thought Content: Thought content normal. Judgment: Judgment normal. Results for orders placed or performed in visit on 02/20/22 HEMOGLOBIN, GLYCOSYLATED Result Value Ref Range HGB A1C 5.7 % Assessment Encounter Diagnose(s) ICD-10-CM ICD-9-CM SNOMED CT(R) 1. Other specified hypothyroidism E03.8 244.8 HYPOTHYROIDISM levothyroxine (SYNTHROID) 125 MCG tablet 2. Prediabetes R73.03 790.29 PREDIABETES HEMOGLOBIN, GLYCOSYLATED COLLECT.CAPILLARY (FNGR,HEEL,EAR) 3. Coronary artery disease involving false pass coronary artery of false pass heart without angina mqyxsbzpQ14.10 414.01 CORONARY ATHEROSCLEROSIS 4. Mixed hyperlipidemia E78.2 272.2 MIXED HYPERLIPIDEMIA Plan 1. Other specified hypothyroidism Doing well is going to require some refills of medications today - levothyroxine (SYNTHROID) 125 MCG tablet; Take 1 tablet (125 mcg total) by mouth every morning. Dispense: 90 tablet; Refill: 1 2. Prediabetes Doing very well controlling that with diet he lost in excess of 30 pounds in the last few years - HEMOGLOBIN, GLYCOSYLATED - COLLECT.CAPILLARY (FNGR,HEEL,EAR) 3. Coronary artery disease involving false pass coronary artery of false pass heart without angina pectoris Stable follows up with her sales lead on a regular basis denies any angina 4. Mixed hyperlipidemia Continue current medications doing well Orders Placed This Encounter ??? COLLECT.CAPILLARY (FNGR,HEEL,EAR) ??? HEMOGLOBIN, GLYCOSYLATED Follow up FU 6 MONTHS PAUL CAIN MD 02/20/2022 10:54 AM NICAL ADMINISTRATOR documented in this encounter Plan of Treatment Upcoming Encounters Date Type Department Care Team (Late st Contact Info) Description 08/05/2024 10:00 AM CDT [facility] Family [facility] Internal Medicine - [address] [address] [place] [address] [address] [place], [place] [id number] 02/15/2025 10:45 AM TECHNICAL ADMINISTRATOR Office Visit [facility] [address] [place] [address] Dale Shahid MD [facility], [address] [place] [address] documented as of this encounter Procedures Procedure Name Priority Date/Time Associated Diagnosis Comments COLLECT.CAPILLARY (FNGR,HEEL,EAR) Routine 02/20/2022 10:35 AM TECHNICAL ADMINISTRATOR Prediabetes HEMOGLOBIN, GLYCOSYLATED Routine 02/20/2022 Prediabetes documented in this encounter Results * HEMOGLOBIN, GLYCOSYLATED (02/20/2022) HGB A1C 5.7 % [id number] NORAH MIKALA [place] 02/20/2022 us Paul Cain MD LABORATORY Final Re sult [id number] [address] [place] [address] [place] [address], documented in this encounter Visit Diagnoses Diagnosis Other specified hypothyroidism- Primary Prediabetes Other abnormal glucose Coronary artery disease involving false pass coronary artery of false pass heart without angina pectoris Mixed hyperlipidemia documented in this encounter Additional Health Concerns Assessment Noted Time PHQ-9 Depression Total Score: 0 12/14/19 21 9:36 AM CDT documented as of this encounter Care Teams Mica Miner Blasting Relationship Specialty Start Date End Date Paul Cain MD PCP - General INTERNAL MEDICINE 12/13/20 07/19/22 documented as of this encounter
--- OUTSIDE RECORDS SUMMARY | 2024-04-11 05:35 | XMS_ITS | Encounter Summary ---
Author Organization [facility] Address [address] [place] [address]. [place], [place] [address] [place] [address] Care Team Providers Care Bakery Worker Conveyor Line Name Role Phone Paul Mejia MD Primary Care Provider Javier camejowei Encounter Details Date Type Department Care Team (Late st Contact Info) Description 07/13/2022 Orders Only [facility] Family & Internal Medicine [facility] [id number] [place] [address] Paul Mejia MD Social History Tobacco [...] CDT Gender Identity Male 06/12/2021 5:16 AM OPTICAL GOODS DRILLING MACHINE OPERATOR Sexual Orientation Straight 06/28/2021 10 :21 AM CDT documented as of this encounter Plan of Treatment Upcoming Encounters Date Type Department Care Team (Late st Contact Info) Description 08/05/2024 10:00 AM CDT Office Visit [facility] Family & Internal Medicine [facility] [id number] [place] [address] [place] [address] [place] [address] 02/15/2025 10:45 AM OPTICAL GOODS DRILLING MACHINE OPERATOR Office Visit [facility] [address] [place] [address] Dale Shahid MD [facility], [address] [place] [address] documented as of this encounter Visit Diagnoses Diagnosis Other specified hypothyroidism- Primary Medication management Encounter for long-term (current) use of other medications documented in this encounter Additional Health Concerns Assessment Noted Time PHQ-9 Depression Total Score: 0 12/14/19 21 9:36 AM CDT documented as of this encounter Care Teams Bakery Worker Conveyor Line Relationship Specialty Start Date End Date Paul Mejia MD PCP - General INTERNAL MEDICINE 12/13/20 07/19/22 documented as of this encounter
--- OUTSIDE RECORDS SUMMARY | 2024-04-11 05:35 | XMS_ITS | Encounter Summary ---
Author Organization [facility] Address [address] [place] [address]. [place], [place] [address] [place] [address] Care Team Providers Care Product Support Engineer Name Role Phone WongKacey martinez RASHMI Primary Care Provider [phone] Encounter Details Date Type Department Care Team (Late st Contact Info) Description 01/28/2023 Orders Only [facility] [address] [place] [address] Dale Shahid MD [facility], Suite [facility] [place] [address] Social History Tobacco Use Types [...] CDT Gender Identity Male 06/12/2021 5:16 AM WEIGHT REDUCTION SPECIALIST Sexual Orientation Straight 06/28/2021 10 :21 AM CDT documented as of this encounter Plan of Treatment Upcoming Encounters Date Type Department Care Team (Late st Contact Info) Description 08/05/2024 10:00 AM CDT Office Visit [facility] Family & Internal Medicine [facility] [address] [place] [address] [place] [address] [address] [place], [place] [id number] 02/15/2025 10:45 AM WEIGHT REDUCTION SPECIALIST Office Visit [facility] [address] [place] [address] Dale Shahid MD Three [facility] [address] [place] [address] documented as of this encounter Results * LIPID PANEL (01/28/2023 8:01 AM CDT) CHOLESTEROL 117 <200.0 MG/DL 01/28/2023 9:24 AM CDT [facility] TRIGLYCERIDES 69 <150 MG/DL 01/28/2023 9:24 AM CDT [facility] HDL 48 >40.0 MG/DL 01/28/2023 9:24 AM T [facility] LDL (CALCULATED) 55 <100 MG/DL 01/29/20 9:24 AM T [facility] NON HDL CHOLESTEROL 69 <130 MG/DL 01/28 9:24 AM T [facility] CHOL/HDL RATIO 2.4 0.0 - 4.5 01/28/2023 9:24 AM T [facility] VLDL CALCULATION 14 5 - 55 MG/DL 01/28/2023 9:24 AM T [facility] LIPID INTERPRETATION 01/28/2023 9:24 AM T [facility] Comment: NIH [...] ? >=160 ?>=130 01/28/2023 8:01 AM CDT us Dale Shahid MD LABORATORY Final Res ult [facility] () [facility] [address] [place] [address], [place] [phone] documented in this encounter Visit Diagnoses Diagnosis Dyslipidemia- Primary Other and unspecified hyperlipidemia documented in this encounter Additional Health Concerns Assessment Noted Time PHQ-9 Depression Total Score: 0 12/14/19 21 9:36 AM CDT documented as of this encounter Care Teams Product Support Engineer Relationship Specialty [place] [address] [address], [address] [place] [address] PCP - General Nurse Practitioner Family 07/20/2206/13 documented as of this encounter
--- OUTSIDE RECORDS SUMMARY | 2024-04-11 05:35 | XMS_ITS | Encounter Summary ---
Author Organization [facility] Address [address] [place] [address]. [place], [place] [address] [place] [address] Care Team Providers Care General Manager Food Name Role Phone Paul Mejia MD Primary Care Provider U bashirskipshannan Encounter Details Date Type Department Care Team (Latest Contact Info) Description 08/20/2021 Travel Social History Tobacco Use Types Packs/Day [...] CDT Gender Identity Male 06/12/2021 5:16 AM LANDING SIGNAL OFFICER Sexual Orientation Straight 06/28/2021 10 :21 AM CDT COVID-19 Exposure Response Date Recorded In the last 10 days, have nicole cantor been in contact with someone who was confirmed or suspected to have Coronavirus/COVID-19? No / Unsure 08/20/2021 12:12 PM CDT documented as of this encounter Plan of Treatment Upcoming Encounters Date Type Department Care Team (Late st Contact Info) Description 08/05/2024 10:00 AM CDT Office Visit [facility] Family & Internal Medicine [facility] [address] [place] [address] [place] [address] [place] [address] 02/15/2025 10:45 AM LANDING SIGNAL OFFICER Office Visit [facility] [address] [place] [address] Dale Shahid MD [facility], [address] [place] [address] documented as of this encounter Visit Diagnoses Not on filedocumented in this encounter Additional Health Concerns Assessment Noted Time PHQ-9 Depression Total Score: 0 12/14/19 21 9:36 AM CDT documented as of this encounter Care Teams General Manager Food Relationship Specialty Start Date End Date Paul Mejia MD PCP - General INTERNAL MEDICINE 12/13/20 07/19/22 documented as of this encounter
--- OUTSIDE RECORDS SUMMARY | 2024-04-11 05:35 | XMS_ITS | Encounter Summary ---
Author Organization [facility] Address [address] [place] [address]. [place], [place] [address] [place] [address] Care Team Providers Care Sleever Name Role Phone Paul Mejia MD Primary Care Provider Javier spencer Encounter Details Date Type Department Care Team (Latest Contact Info) Description 03/02/2021 Travel Social History Tobacco Use Types Packs/Day [...] CDT Gender Identity Male 06/12/2021 5:16 AM DEPUTY SHERIFF/INVESTIGATOR Sexual Orientation Straight 06/28/2021 10 :21 AM CDT COVID-19 Exposure Response Date Recorded In the last month, have you been in contact with someone who was confirmed or suspected to have Coronavirus / COVID-19? No / Unsure 03/02/2021 1:14 PM DEPUTY SHERIFF/INVESTIGATOR documented as of this encounter Plan of Treatment Upcoming Encounters Date Type Department Care Team (Late st Contact Info) Description 08/05/2024 10:00 AM CDT Office Visit [facility] Family & Internal Medicine [facility] [address] [place] [address] [place] [address] [place] [address] 02/15/2025 10:45 AM DEPUTY SHERIFF/INVESTIGATOR Office Visit [facility] [address] [place] [address] Dale Shahid MD [facility], [address] [place] [address] documented as of this encounter Visit Diagnoses Not on filedocumented in this encounter Additional Health Concerns Assessment Noted Time PHQ-9 Depression Total Score: 0 12/14/19 9:36 AM CDT documented as of this encounter Care Teams Sleever Relationship Specialty Start Date End Date Paul Mejia MD PCP - General INTERNAL MEDICINE 12/13/20 07/19/22 documented as of this encounter
--- OUTSIDE RECORDS SUMMARY | 2024-04-11 05:35 | XMS_ITS | Encounter Summary ---
Author Organization [facility] Address [address] [place] [address]. [place], [place] [address] [place] [address] Care Team Providers Care Field Operations Manager Name Role Phone JennieKacey membreno RASHMI Primary Care Provider [phone] Encounter Details Date Type Department Care Team (Latest Contact Info) Description 01/28/2023 Travel Social History Tobacco Use Types Packs/Day [...] CDT Gender Identity Male 06/12/2021 5:16 AM DENTAL OFFICE ASSISTANT Sexual Orientation Straight 06/28/2021 10 :21 AM CDT documented as of this encounter Plan of Treatment Upcoming Encounters Date Type Department Care Team (Late st Contact Info) Description 08/05/2024 10:00 AM CDT Office Visit [facility] Family & Internal Medicine [facility] [address] [place] [address] [place] [address] [place] [address] 02/15/2025 10:45 AM DENTAL OFFICE ASSISTANT Office Visit [facility] [address] [place] [address] Dale Shahid MD [facility], [address] [place] [address] documented as of this encounter Visit Diagnoses Not on filedocumented in this encounter Additional Health Concerns Assessment Noted Time PHQ-9 Depression Total Score: 0 12/14/19 21 9:36 AM CDT documented as of this encounter Care Teams Field Operations Manager Relationship Specialty [place] [address] [address], [address] [place] [address] PCP - General Nurse Practitioner Family 07/20/2206/13 documented as of this encounter
--- OUTSIDE RECORDS SUMMARY | 2024-04-11 05:35 | XMS_ITS | Encounter Summary ---
Author Organization [facility] Address [address] [place] [address]. [place], [place] [address] [place] [address] Care Team Providers Care Software Application Tester Name Role Phone Paul Mejia MD Primary Care Provider U bashirailshannan Reason for Visit * Reason Onset Date Comments Medication Question 10/06/2021 Encounter Details Date Type Department Care Team (Late st Contact Info) Description 10/06/2021 Telephone [facility], [address] [address] Roz Coles guide excursion Question Social History Tobacco Use Types Packs/Day Years [...] CDT Gender Identity Male 06/12/2021 5:16 AM TRANSMISSION REBUILDER Sexual Orientation Straight 06/28/2021 10 :21 AM CDT documented as of this encounter Progress Notes * Sandi Sandy RN - 10/17/2021 12:47 PM CDTAddended by: SANDI SANDY on: 10/17/2021 12:47 PM Modules accepted: Orders * Sandi Sandy RN - 10/17/2021 12:04 PM CDT He can stop the valsartan but needs to keep monitoring BP as the medication may be restarted as needed. Above message from Dr. Shahid'. I informed the patient of the above information. The patient verbalized understanding and had no further questions. * Roz Coles RN - 10/06/2021 1:04 PM CDT Patient states that at last OV you had discussed the possibility of discontinuing some of his meds,his bp runs about 120s/70-80s, no complaints. Asking if he should continue valsartan or ok to stop? documented in this encounter Plan of Treatment Upcoming Encounters Date Type Department Care Team (Late st Contact Info) Description 08/05/2024 10:00 AM CDT Office Visit [facility] Family & Internal Medicine - [place] [address] [place] [address] [place] [address] [place] [address] 02/15/2025 10:45 AM TRANSMISSION REBUILDER Office Visit [facility] [address] [place] [address] Dale Shahid MD [facility], [address] [place], [place] [id number] documented as of this encounter Visit Diagnoses Not on filedocumented in this encounter Additional Health Concerns Assessment Noted Time PHQ-9 Depression Total Score: 0 12/14/19 21 9:36 AM CDT documented as of this encounter Care Teams Software Application Tester Relationship Specialty Start Date End Date Paul Mejia MD PCP - General INTERNAL MEDICINE 12/13/20 07/19/22 documented as of this encounter
--- OUTSIDE RECORDS SUMMARY | 2024-04-11 05:35 | XMS_ITS | Encounter Summary ---
Author Organization [facility] Address [address] [place] [address]. [place], [place] [address] [place] [address] Care Team Providers Care Engineering Patternmaker Name Role Phone Paul Mejia MD Primary Care Provider U bashirskipshannan Encounter Details Date Type Department Care Team (Latest Contact Info) Description 08/07/2021 Travel Social History Tobacco Use Types Packs/Day [...] CDT Gender Identity Male 06/12/2021 5:16 AM CONFORMAL PAD FORMER Sexual Orientation Straight 06/28/2021 10 :21 AM CDT COVID-19 Exposure Response Date Recorded In the last 10 days, have nicole u been in contact with someone who was confirmed or suspected to have Coronavirus/COVID-19? No / Unsure 08/07/2021 4:13 PM CDT documented as of this encounter Plan of Treatment Upcoming Encounters Date Type Department Care Team (Late st Contact Info) Description 08/05/2024 10:00 AM CDT Office Visit [facility] Family & Internal Medicine [facility] [address] [place] [address] [place] [address] [place] [address] 02/15/2025 10:45 AM CONFORMAL PAD FORMER Office Visit [facility] [address] [place] [address] Dale Shahid MD [facility], [address] [place] [address] documented as of this encounter Visit Diagnoses Not on filedocumented in this encounter Additional Health Concerns Assessment Noted Time PHQ-9 Depression Total Score: 0 12/14/19 21 9:36 AM CDT documented as of this encounter Care Teams Engineering Patternmaker Relationship Specialty Start Date End Date Paul Mejia MD PCP - General INTERNAL MEDICINE 12/13/20 07/19/22 documented as of this encounter
--- OUTSIDE RECORDS SUMMARY | 2024-04-11 05:35 | XMS_ITS | Encounter Summary ---
Author Organization [facility] Address [address] [place] [address]. [place], [place] [address] [place] [address] Care Team Providers Care Curator Herbarium Name Role Phone WongKacey martinez RASHMI Primary Care Provider [phone] Encounter Details Date Type Department Care Team (Late st Contact Info) Description 07/25/2022 7:05 AM CDT - 07/25/2022 7:06 AM CDT Hospital Encounter [facility] [address] [place] [address] Paul Mejia MD Discharge Disposition: Home or Self Care [...] CDT Gender Identity Male 06/12/2021 5:16 AM ASBESTOS SIDING MECHANIC Sexual Orientation Straight 06/28/2021 10 :21 [...] 02/20/2022 3 documented as of this encounter Progress Notes * Nelda Christy APRN - 07/25/2022 7:05 AM CDT BMP: Glucose elevated at 121 indicative of possible diabetes diagnosis. Patient will need to follow-up with PCP for further evaluation and possible A1c. Electrolyte function within normal reference range and stable. Kidney function moderately decreased however levels are stable from draw 6 months prior.Encourage patient to adhere to a low-carb diet, increase exercise as tolerated, and increase hydration. Please have patient follow-up with PCP for further review of lab results. documented in this encounter Plan of Treatment Upcoming Encounters Date Type Department Care Team (Late st Contact Info) Description 08/05/2024 10:00 AM CDT Office Visit [facility] Medical [facility] Family & Internal Medicine - [place] [address] [place] [address] [place] [address] [place] [address] 02/15/2025 10:45 AM ASBESTOS SIDING MECHANIC Office Visit [facility] [address] [place], [place] [phone] Dale Shahid MD [facility], [address] [place] [address] documented as of this encounter Procedures Procedure Name Priority Date/Time Associated Diagnosis Comments BASIC METABOLIC PANEL Routine 07/25/2022 7:15 AM CDT CAD (coronary artery disease) documented in this encounter Results * (ABNORMAL) BASIC METABOLIC PANEL (07/25/2022 7:15 AM CDT) GLUCOSE 121(H) 70 - 99 MG/DL 07/25/2022 8:44 AM CDT [facility] BUN 26(H) 7 - 18 MG/DL 07/25/2022 8:44 AM CDT [facility] CREATININE S/P/B 1.31(H) 0.7 - 1.3 MG/DL 07/25/2022 8:44 AM CDT [facility] SODIUM S/P/B 139 136 - 145 MMOL/L 07/25/2022 8:44 AM CDT [facility] POTASSIUM S/P/B 4.7 3.5 - 5.1 MMOL/L 07/25/2022 8:44 AM CDT [facility] CHLORIDE S/P/B 104 100 - 108 MMOL/L 07/25/2022 8:44 AM CDT [facility] CO2 27.4 21 - 32 MMOL/L 07/25/2022 8:44 AM CDT [facility] CALCIUM S/P/B 8.7 8.5 - 10.1 MG/DL 07/25/2022 8:44 AM CDT [facility] ANION GAP 7.6 5 - 15 MMOL/L 07/25/2022 8:44 AM CDT [facility] BUN CREATININE RATIO 19.8 6 - 26 07/25/2022 8:44 AM CDT [facility] GFR ESTIMATE 60(L) >90 ML/MIN/1.7 3 M2 07/25/2022 8:44 AM CDT [facility] Comment: NOTE: eGFR is not calculated for patients <18 years of age. This is an estimated GFR calculation using the new CKD EPI creatinine equation without race and so does not require a correction factor for race. This estimated GFR should not be used for calculating drug doses. 07/25/2022 7:15 AM CDT us Paul Mejia MD LABORATORY Final Re sult [facility] [id number] [place] [id number], documented in this encounter Visit Diagnoses Diagnosis CAD (coronary artery disease) Coronary atherosclerosis of unspecified type of vessel, standing rock or graft documented in this encounter Additional Health Concerns Assessment Noted Time PHQ-9 Depression Total Score: 0 12/14/19 21 9:36 AM CDT documented as of this encounter Care Teams Curator Herbarium Relationship Specialty [place] [address] [address], [address] [place] [address] PCP - General Nurse Practitioner Family 07/20/2206/13 documented as of this encounter
--- OUTSIDE RECORDS SUMMARY | 2024-04-11 05:35 | XMS_ITS | Encounter Summary ---
Author Organization [facility] Address [address] [place] [address]. [place], [place] [address] [place] [address] Care Team Providers Care Propulsion Systems Engineer Name Role Phone Paul Cain MD Primary Care Provider U navailable Reason for Visit * Reason Comments Follow Up Hypothyroidism Encounter Details Date Type Department Care Team (Late st Contact Info) Description 08/30/2021 9:40 AM CDT Office Visit [facility] Medical Group Family & Internal Medicine [address] [address] Paul Cain MD Follow Up; Hypothyroidism Social History Tobacco Use Types Packs/Day [...] Gender Identity Male 06/12/2021 5:16 AM GENERAL DENTIST Sexual Orientation Straight 06/28/2021 10 :21 AM CDT COVID-19 Exposure Response Date Recorded In the last 10 days, have yo u been in contact with someone who was confirmed or suspected to have Coronavirus/COVID-19? No / Unsure 08/30/2021 9:06 AM CDT documented as of this encounter Last Filed Vital Signs Vital Sign Reading Time Taken Comments Blood Pressure 132/80 08/30/2021 9:31 AM CDT Pulse 67 08/30/2021 9:31 AM CDT Temperature 36.2 ??C (97.2 ??F) 08/30/2021 9:31 AM CD T Respiratory Rate 18 08/30/2021 9:31 AM CDT Oxygen Saturation 97% 08/30/2021 9:31 AM CDT Inhaled Oxygen Concentration - - Weight 124 kg (273 lb 4.8 oz) 08/30/2021 9:31 AM CDT Height 182.9 cm (6') 08/30/2021 9:31 AM CDT Body Mass Index 37.07 08/30/2021 9:31 AM CDT documented in this encounter Progress Notes * Paul Cain MD - 08/30/2021 9:40 AM CDT Reason for Visit: Follow Up and Hypothyroidism Filed Vitals: 08/30/21 0931 BP: 132/80 Pulse: 67 Resp: 18 Temp: 97.2 ??F (36.2 ??C) TempSrc: Temporal SpO2: 97% Weight: 124 kg (273 lb 4.8 oz) Height: 6' (1.829 m) Body mass index is 37.07 kg/m??. History of Present Illness: HPI 2 morning office visit with the gentleman Mr. Radha Zhang he is a pleasant 65-year-old gentleman with history of coronary artery heart disease he just saw the dye padder operator on 08/09/2021 and everything is doing fine currently on Brilinta but he is going to be discontinuing the previous and continue with aspirin for the rest of his life. He is doing very well he has no complaints he denies any chest pains. ROS: Review of Systems Constitutional: Negative. Respiratory: [...] artery disease) ??? COVID-19 vaccine administered 2020 [employer] ??? Disease of thyroid gland ??? Hypercholesterolemia ??? Influenza vaccine refused 12/13/2020 ??? Kidney stones Past Surgical History: Procedure Laterality Date ??? CARDIAC STENTS 10/14/2020 ??? LITHOTRIPSY Social History Socioeconomic History ??? Marital status: Spouse name: Not on file ??? Number of children: Not on file ??? Years of education: Not on file ??? Highest education level: Not on file Occupational History ??? Not on file Tobacco Use ??? Smoking status: Never Smoker ??? Smokeless tobacco: Never Used Vaping Use ??? Vaping Use: Never used Substance and Sexual Activity ??? Alcohol use: Yes Comment: occasional 2-3 weeks ??? Drug use: No ??? Sexual activity: Not on file Other Topics Concern ??? Service Not Asked ??? Blood Transfusions Not Asked ??? Caffeine Concern No ??? Occupational Exposure Not Asked ??? Hobby Hazards Not Asked ??? Sleep Concern Not Asked ??? Stress Concern Not Asked ??? Weight Concern Not Asked ??? Special Diet No ??? Back Care Not Asked ??? Exercise Yes ??? Bike Helmet Not Asked ??? Seat Belt Not Asked ??? Self-Exams Not Asked ??? Wheelchair Not Asked ??? Walker Not Asked ??? Upper extremity braces/slings Not Asked ??? Lower extermity braces/slings Not Asked ??? Self Care Not Asked Social History Narrative ??? Not on file Social Determinants of Health Financial Resource Strain: Not on file Food Insecurity: Not on file Transportation Needs: Not on file Physical Activity: Not on file Stress: Not on file Social Connections: Not on file Intimate Partner Violence: Not on file Family History Problem Relation Name Age of [...] and Rhythm: Normal rate and regular rhythm. Pulmonary: Effort: Pulmonary effort is normal. Breath sounds: Normal breath sounds. Musculoskeletal: General: Normal range of motion. Cervical back: Normal range of motion and neck supple. Neurological: General: No focal deficit present. Mental Status: He is alert and oriented to person, place, and time. Psychiatric: Mood and Affect: Mood normal. Behavior: Behavior normal. Thought Content: Thought content normal. Judgment: Judgment normal. Assessment Encounter Diagnose(s) ICD-10-CM ICD-9-CM SNOMED CT(R) 1. Coronary artery disease involving onondaga coronary artery of onondaga heart without angina supdasffZ41.10 414.01 CORONARY ATHEROSCLEROSIS 2. Other specified hypothyroidism E03.8 244.8 HYPOTHYROIDISM 3. Mixed hyperlipidemia E78.2 272.2 MIXED HYPERLIPIDEMIA Plan at this time we will continue with his usual medications for the coronary artery heart diseasehyperlipidemia hypertension hypothyroidism he take them on a regular basis very compliant with no side effectsCurrent medication Brilinta aspirin atorvastatin valsartan carvedilol vitamin D3 levothyroxine potassium. I will see him back in 6 months patient has been vaccinated needed against COVID-19and had 1 booster No orders of the defined types were placed in this encounter. Follow up FU 6 MONTHS PAUL CAIN MD 08/30/2021 10:14 AM documented in this encounter Plan of Treatment Upcoming Encounters Date Type Department Care Team (Late st Contact Info) Description 08/05/2024 10:00 AM CDT Office Visit [facility] Medical Group Family & Internal Medicine [facility] [address] [place] [address] [place] [address] [place] [address] 02/15/2025 10:45 AM GENERAL DENTIST Office Visit [facility] [address] [place] [address] Dale Shahid MD [facility], [address] [place] [address] documented as of this encounter Visit Diagnoses Diagnosis Coronary artery disease involving onondaga coronary artery of onondaga heart without angina pectoris- Primary Other specified hypothyroidism Mixed hyperlipidemia documented in this encounter Additional Health Concerns Assessment Noted Time PHQ-9 Depression Total Score: 0 12/14/19 21 9:36 AM CDT documented as of this encounter Care Teams Propulsion Systems Engineer Relationship Specialty Start Date End Date Paul Cain MD PCP - General INTERNAL MEDICINE 12/13/20 07/19/22 documented as of this encounter
--- OUTSIDE RECORDS SUMMARY | 2024-04-11 05:35 | XMS_ITS | Encounter Summary ---
Author Organization [facility] Address [address] [place] [address]. [place], [place] [address] [place] [address] Care Team Providers Care Chronic Manager Name Role Phone Paul Mejia MD Primary Care Provider U navailable Reason for Visit * Reason Onset Date Comments Lab Order 11/15/2021 Encounter Details Date Type Department Care Team (Late st Contact Info) Description 11/15/2021 Telephone [facility] Medical Group Family & Internal Medicine [facility] [address] [place] [address] Paul Mejia MD Lab Order Social [...] CDT Gender Identity Male 06/12/2021 5:16 AM POLYMERIZATION KETTLE OPERATOR Sexual Orientation Straight 06/28/2021 10 :21 AM CDT COVID-19 Exposure Response Date Recorded In the last 10 days, have yo u been in contact with someone who was confirmed or suspected to have Coronavirus/COVID-19? No / Unsure 10/31/2021 9:27 AM CDT documented as of this encounter Progress Notes * Kathy Pollard RN - 11/21/2021 11:57 AM CDT Order entered 11/20/2021 * Rose Mary Escobar LPN - 11/15/2021 1:25 PM CDT Pt states dr. Keith wanted him to get a hga1c is coming up please place order [phone] documented in this encounter Plan of Treatment Upcoming Encounters Date Type Department Care Team (Late st Contact Info) Description 08/05/2024 10:00 AM CDT Office Visit [facility] Medical Group Family & Internal Medicine [facility] [address] [place] [address] Amado Mathew PA [address] [place] [address] 02/15/2025 10:45 AM POLYMERIZATION KETTLE OPERATOR Office Visit [facility] [address] [place] [address] Dale Shahid MD [facility], [address] [place] [address] documented as of this encounter Visit Diagnoses Not on filedocumented in this encounter Additional Health Concerns Assessment Noted Time PHQ-9 Depression Total Score: 0 12/14/19 9:36 AM CDT documented as of this encounter Care Teams Chronic Manager Relationship Specialty Start Date End Date Paul Mejia MD PCP - General INTERNAL MEDICINE 12/13/20 07/19/22 documented as of this encounter
--- OUTSIDE RECORDS SUMMARY | 2024-04-11 05:35 | XMS_ITS | Encounter Summary ---
Author Organization [facility] Address [address] [place] [address]. [place], [place] [address] [place] [address] Care Team Providers Care Costuming Supervisor Name Role Phone Paul Mejia MD Primary Care Provider Javier spencer Encounter Details Date Type Department Care Team (Latest Contact Info) Description 03/07/2021 Travel Social History Tobacco Use Types Packs/Day [...] CDT Gender Identity Male 06/12/2021 5:16 AM DONOR SERVICES MANAGER Sexual Orientation Straight 06/28/2021 10 :21 AM CDT COVID-19 Exposure Response Date Recorded In the last month, have you been in contact with someone who was confirmed or suspected to have Coronavirus / COVID-19? No / Unsure 03/07/2021 1:14 PM DONOR SERVICES MANAGER documented as of this encounter Plan of Treatment Upcoming Encounters Date Type Department Care Team (Late st Contact Info) Description 08/05/2024 10:00 AM CDT Office Visit [facility] Medical Group Family & Internal Medicine [facility] [address] [place] [phone] [place] [address] [place] [address] 02/15/2025 10:45 AM DONOR SERVICES MANAGER Office Visit [place] [facility] [address] [place] [address] Dale Shahid MD [facility], [address] [place] [address] documented as of this encounter Visit Diagnoses Not on filedocumented in this encounter Additional Health Concerns Assessment Noted Time PHQ-9 Depression Total Score: 0 12/14/19 9:36 AM CDT documented as of this encounter Care Teams Costuming Supervisor Relationship Specialty Start Date End Date Paul Mejia MD PCP - General INTERNAL MEDICINE 12/13/20 07/19/22 documented as of this encounter
--- OUTSIDE RECORDS SUMMARY | 2024-04-11 05:35 | XMS_ITS | Encounter Summary ---
Author Organization [facility] Address [address] [place] [address]. [place], [place] [address] [place] [address] Care Team Providers Care Card Dealer Name Role Phone Paul Mejia MD Primary Care Provider U johanna Encounter Details Date Type Department Care Team (Late st Contact Info) Description 11/24/2021 9:00 AM CDT Laboratory Only [facility] Medical Group Family & Internal Medicine [address] [address] Paul Mejia MD Social History [...] CDT Gender Identity Male 06/12/2021 5:16 AM FOOD INSPECTOR Sexual Orientation Straight 06/28/2021 10 :21 AM CDT COVID-19 Exposure Response Date Recorded In the last 10 days, have yo u been in contact with someone who was confirmed or suspected to have Coronavirus/COVID-19? No / Unsure 11/24/2021 8:06 AM CDT documented as of this encounter Progress Notes * Carleen Sullivan MA - 11/24/2021 9:00 AM CDT Called patient to go over test results. Patient V/U. documented in this encounter Plan of Treatment Upcoming Encounters Date Type Department Care Team (Late st Contact Info) Description 08/05/2024 10:00 AM CDT Office Visit [facility] Medical Group Family & Internal Medicine - [place] [address] [place] [address] [place] [address] [place], [place] [id number] 02/15/2025 10:45 AM FOOD INSPECTOR Office Visit [place] [facility] [address] [place] [address] Dale Shahid MD [facility], [address] [place], [place] [id number] documented as of this encounter Procedures Procedure Name Priority Date/Time Associated Diagnosis Comments VENIPUNC ARM DRAW Routine 11/24/2021 8:3 1 AM CDT Blood glucose elevated HEMOGLOBIN, GLYCOSYLATED Routine 11/24/2021 8:31 AM CDT Blood glucose elevated documented in this encounter Results * (ABNORMAL) HEMOGLOBIN, GLYCOSYLATED (11/24/2021 8:31 AM CDT) HGB A1C 5.8(H) <5.7 % of total Hgb [facility] [...] A1c for diagnosis of diabetes for children. 11/24/2021 8:31 AM CDT 11/25/2021 3:46 AM CDT us Paul Mejia MD LABORATORY Final Re sult [facility] [address] [address] [place] [address] documented in this encounter Visit Diagnoses Diagnosis Blood glucose elevated- Primary Other abnormal glucose documented in this encounter Additional Health Concerns Assessment Noted Time PHQ-9 Depression Total Score: 0 12/14/19 9:36 AM CDT documented as of this encounter Care Teams Card Dealer Relationship Specialty Start Date End Date Paul Mejia MD PCP - General INTERNAL MEDICINE 12/13/20 07/19/22 documented as of this encounter
--- OUTSIDE RECORDS SUMMARY | 2024-04-11 05:35 | XMS_ITS | Encounter Summary ---
Author Organization [facility] Address [address] [place] [address]. [place] [address] [place] [address] Care Team Providers Care Warehouse Analyst Name Role Phone WongKacey martinez RASHMI Primary Care Provider [phone] Reason for Visit * Reason Onset Date Comments Lab Results 01/30/2023 Encounter Details Date Type Department Care Team (Late st Contact Info) Description [facility] [address] Marisol Sandy client technical professional Results Social History Tobacco Use Types Packs/Day [...] CDT Gender Identity Male 06/12/2021 5:16 AM LEAD WEB DEVELOPER Sexual Orientation Straight 06/28/2021 10 :21 AM CDT documented as of this encounter Progress Notes * Marisol Sandy RN - 01/30/2023 4:58 PM CDT Please let him know that his LDL is well controlled <70, continue current meds. Above message from Dr. Shahid'. Kabbee message sent to the patient with the above information. documented in this encounter Plan of Treatment Upcoming Encounters Date Type Department Care Team (Late st Contact Info) Description 08/05/2024 10:00 AM CDT Office Visit [facility] Medical Group Family & Internal Medicine [facility] [address] [place] [phone] [place] [address] [place] [address] 02/15/2025 10:45 AM LEAD WEB DEVELOPER Office Visit [place] [facility] [address] [place], [place] [phone] Dale Shahid MD [facility], [address] [place], [place] [phone] documented as of this encounter Visit Diagnoses Not on filedocumented in this encounter Additional Health Concerns Assessment Noted Time PHQ-9 Depression Total Score: 0 12/14/19 21 9:36 AM CDT documented as of this encounter Care Teams Warehouse Analyst Relationship Specialty [place] [address] [facility], [address] [place], [place] [phone] PCP - General Nurse Practitioner Family 07/20/2206/13 documented as of this encounter
--- OUTSIDE RECORDS SUMMARY | 2024-04-11 05:35 | XMS_ITS | Encounter Summary ---
Author Organization [facility] Address [facility] [place] [address] [place] [address] Care Team Providers Care Extraction Machine Operator Name Role Phone Paul Mejia MD Primary Care Provider U navailable Reason for Visit * Consultation/Treatment (Routine) - Closed Specialty Diagnoses / Procedures Referred By Contact Referred To Contact Cardiac Rehabilitation / [facility] Cardiopulmonary Rehab Diagnoses NSTEMI (non-ST elevated myocardial infarction) ([facility]) NSTEMI Procedures Cardiac Rehab Evaluation (Phase II) (ONLY ORDER IF MD) Dale Shahid MD [facility], [address] [place] [address] Phone: tel: fax: [facility] [address] [place] [address] Phone: tel:[phone] Referral ID Status Reason Start Date Expiration Date Visits Requested Visits Authorized [id number] Closed Cardiac Rehabilitation 10/26/2020 11/26/2021 36 36 Encounter Details Date Type Department Care Team (Late st Contact Info) Description 03/07/2021 1:14 PM RN TELEHEALTH - 03/07/2021 11:59 PM RN TELEHEALTH Hospital Encounter [facility] [address] [place] [address] Dale hSahid MD [facility], [address] [place] [address] Discharge Disposition: Home or Self Care [...] Gender Identity Male 06/12/2021 5:16 AM RN TELEHEALTH Sexual Orientation Straight 06/28/2021 10 :21 AM CDT COVID-19 Exposure Response Date Recorded In the last month, have you been in contact with someone who was confirmed or suspected to have Coronavirus / COVID-19? No / Unsure 03/07/2021 1:14 PM RN TELEHEALTH documented as of this encounter Medications at [...] Description 08/05/2024 10:00 AM CDT Office Visit [facility] Medical Group Family & Internal Medicine - [place] [address] [place] [address] [place] [address] [place] [address] 02/15/2025 10:45 AM RN TELEHEALTH [facility] [address] [place] [address] Dale Shahid MD [facility], [address] [place] [address] documented as of this encounter Visit Diagnoses Not on filedocumented in this encounter Additional Health Concerns Assessment Noted Time PHQ-9 Depression Total Score: 0 12/14/19 21 9:36 AM CDT documented as of this encounter Care Teams Extraction Machine Operator Relationship Specialty Start Date End Date Paul Mejia MD PCP - General INTERNAL MEDICINE 12/13/20 07/19/22 documented as of this encounter
--- OUTSIDE RECORDS SUMMARY | 2024-04-11 05:35 | XMS_ITS | Encounter Summary ---
Author Organization [facility] Address [address] [place] [address]. [place], [place] [address] [place] [address] Care Team Providers Care Pipeline Gang Supervisor Name Role Phone Paul Mejia MD Primary Care Provider U bashirailshannan Encounter Details Date Type Department Care Team (Late st Contact Info) Description 08/25/2021 Orders Only [facility] Family & Internal Medicine [address] [address] Ursula Lindsey RN Social History Tobacco Use Types Packs/Day Years [...] CDT Gender Identity Male 06/12/2021 5:16 AM MULE PACKER Sexual Orientation Straight 06/28/2021 10 :21 AM [...] Medical Group Family & Internal Medicine - [place] [address] [place] [phone] [place] [address] [place] [address] 02/15/2025 10:45 AM MULE PACKER Office Visit [facility] [address] [place] [address] Dale Shahid MD [facility], [address] [place] [address] documented as of this encounter Visit Diagnoses Diagnosis Elevated glucose- Primary Other abnormal glucose documented in this encounter Additional Health Concerns Assessment Noted Time PHQ-9 Depression Total Score: 0 12/14/19 21 9:36 AM CDT documented as of this encounter Care Teams Pipeline Gang Supervisor Relationship Specialty Start Date End Date Paul Mejia MD PCP - General INTERNAL MEDICINE 12/13/20 07/19/22 documented as of this encounter
--- OUTSIDE RECORDS SUMMARY | 2024-04-11 05:35 | XMS_ITS | Encounter Summary ---
Author Organization [facility] Address [address] [place] [address]. [place], [place] [id number] [place] [address] Care Team Providers Care Checker In Name Role Phone Paul Mejia MD Primary Care Provider U bashirskipshannan Encounter Details Date Type Department Care Team (Latest Contact Info) Description 08/28/2021 Travel Social History Tobacco Use Types Packs/Day [...] CDT Gender Identity Male 06/12/2021 5:16 AM DATA ANALYTICS ARCHITECT Sexual Orientation Straight 06/28/2021 10 :21 AM [...] Family & Internal Medicine [facility] [address] [place] [address] [place] [address] [place] [address] 02/15/2025 10:45 AM DATA ANALYTICS ARCHITECT Office Visit [facility] [address] [place] [address] Dale Shahid MD [facility], [address] [place] [address] documented as of this encounter Visit Diagnoses Not on filedocumented in this encounter Additional Health Concerns Assessment Noted Time PHQ-9 Depression Total Score: 0 12/14/19 21 9:36 AM CDT documented as of this encounter Care Teams Checker In Relationship Specialty Start Date End Date Paul Mejia MD PCP - General INTERNAL MEDICINE 12/13/20 07/19/22 documented as of this encounter
--- OUTSIDE RECORDS SUMMARY | 2024-04-11 05:35 | XMS_ITS | Encounter Summary ---
Author Organization [facility] Address [address] [place] [address]. [place], [place] [address] [place] [address] Care Team Providers Care Director Financial Systems Name Role Phone Paul Mejia MD Primary Care Provider U bashirskipshannan Encounter Details Date Type Department Care Team (Latest Contact Info) Description 08/30/2021 Travel Social History Tobacco Use Types Packs/Day [...] CDT Gender Identity Male 06/12/2021 5:16 AM COLLECTIONS ANALYST Sexual Orientation Straight 06/28/2021 10 :21 AM [...] & Internal Medicine [facility] [address] [place] [address] [place] [address] [place] [address] 02/15/2025 10:45 AM COLLECTIONS ANALYST Office Visit [facility] [address] [place] [address] Dale Shahid MD [facility], [address] [place] [address] documented as of this encounter Visit Diagnoses Not on filedocumented in this encounter Additional Health Concerns Assessment Noted Time PHQ-9 Depression Total Score: 0 12/14/19 21 9:36 AM CDT documented as of this encounter Care Teams Director Financial Systems Relationship Specialty Start Date End Date Paul Mejia MD PCP - General INTERNAL MEDICINE 12/13/20 07/19/22 documented as of this encounter
--- OUTSIDE RECORDS SUMMARY | 2024-04-11 05:35 | XMS_ITS | Encounter Summary ---
Author Organization [facility] Address [address] [place] [address]. 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 No / Unsure 01/17/2022 7:41 AM CDT documented as of this encounter Progress Notes * Kimberly Aguirre RN - 01/18/2022 4:17 PM CDT Pt verbalized understanding, agreed with POC and denies any further questions or concerns. Med sent * Kimberly Aguirre RN - 01/18/2022 4:17 PM CDT ----- Message from Dale Shahid MD sent at 01/18/2022 4:12 PM CDT ----- Please let him know that his LDL is 81, goal <70. We can add ezetimibe 10mg qd. documented in this encounter Plan of Treatment Upcoming Encounters Date Type Department Care Team (Late st Contact Info) Description 08/05/2024 10:00 AM CDT Office Visit [facility] Family & Internal Medicine [facility] [address] [place] [address] [place] [address] [place], [place] [id number] 02/15/2025 10:45 AM DRY HEAT ROOM ATTENDANT Office Visit [facility] [facility] [address] [place] [address] Dale Shahid MD [facility], [address] [place] [address] documented as of this encounter Visit Diagnoses Not on filedocumented in this encounter Additional Health Concerns Assessment Noted Time PHQ-9 Depression Total Score: 0 12/14/19 9:36 AM CDT documented as of this encounter Care Teams Catering Chef Relationship Specialty Start Date End Date Paul Mejia MD PCP - General INTERNAL MEDICINE 12/13/20 07/19/22 documented as of this encounter
--- OUTSIDE RECORDS SUMMARY | 2024-04-11 05:35 | XMS_ITS | Encounter Summary ---
Author Organization [facility] Address [address] [place] [address]. [place], [place] [address] [place] [address] Care Team Providers Care Drop Tester Name Role Phone Paul Mejia MD Primary Care Provider U johnshannan Encounter Details Date Type Department Care Team (Latest Contact Info) Description 01/17/2022 Travel Social History Tobacco Use Types Packs/Day [...] CDT Gender Identity Male 06/12/2021 5:16 AM ACADEMIC ADVISER Sexual Orientation Straight 06/28/2021 10 :21 AM [...] Description 08/05/2024 10:00 AM CDT Office Visit [facility] Family & Internal Medicine [facility] [address] [place] [address] [place] [address] [place] [address] 02/15/2025 10:45 AM ACADEMIC ADVISER Office Visit [facility] [address] [place] [address] Dale Shahid MD [facility], [address] [place] [address] documented as of this encounter Visit Diagnoses Not on filedocumented in this encounter Additional Health Concerns Assessment Noted Time PHQ-9 Depression Total Score: 0 12/14/19 21 9:36 AM CDT documented as of this encounter Care Teams Drop Tester Relationship Specialty Start Date End Date Paul Mejia MD PCP - General INTERNAL MEDICINE 12/13/20 07/19/22 documented as of this encounter
--- OUTSIDE RECORDS SUMMARY | 2024-04-11 05:35 | XMS_ITS | Encounter Summary ---
Author Organization [facility] Address [address] [place] [address]. [place], [place] [address] [place] [address] Care Team Providers Care Etiquette Teacher Name Role Phone Paul Mejia MD Primary Care Provider U bashirailshannan Reason for Visit * Reason Onset Date Comments Orders 07/12/2022 Encounter Details Date Type Department Care Team (Late st Contact Info) Description 07/12/[address] [facility] Family & Internal Medicine [facility] [address] [place] [address] Paul Mejia MD Orders Social History Tobacco Use Types Packs/Day Years [...] CDT Gender Identity Male 06/12/2021 5:16 AM JUNIOR BUSINESS ANALYST Sexual Orientation Straight 06/28/2021 10 :21 AM CDT documented as of this encounter Progress Notes * Kathy Pollard RN - 07/17/2022 1:33 PM CDT Order entered and Onavo message sent * Kathy Pollard RN - 07/13/2022 2:31 PM CDT approved for lab to be done-order entered. Message sent to Onavo. * Leandro Larson RN - 07/12/2022 2:11 PM CDT Ok to place TSH orders? Any other labs? * Carla Solo - 07/12/2022 1:31 PM CDT Patient called requesting TSH orders. HE would like to have labs done next week. Please call pt when orders are placed. Please advise documented in this encounter Plan of Treatment Upcoming Encounters Date Type Department Care Team (Late st Contact Info) Description 08/05/2024 10:00 AM CDT Office Visit [facility] Family & Internal Medicine - [place] [address] [place] [address] [place] [address] [place], [place] [id number] 02/15/2025 10:45 AM JUNIOR BUSINESS ANALYST Office Visit [facility] [address] [place] [address] Dale Shahid MD [facility], [address] [place] [address] documented as of this encounter Visit Diagnoses Not on filedocumented in this encounter Additional Health Concerns Assessment Noted Time PHQ-9 Depression Total Score: 0 12/14/19 21 9:36 AM CDT documented as of this encounter Care Teams Etiquette Teacher Relationship Specialty Start Date End Date Paul Mejia MD PCP - General INTERNAL MEDICINE 12/13/20 07/19/22 documented as of this encounter
--- OUTSIDE RECORDS SUMMARY | 2024-04-11 05:35 | XMS_ITS | Encounter Summary ---
Author Organization [facility] Address [address] [place] [address]. [place], [place] [address] [place] [address] Care Team Providers Care Block Making Machine Operator Name Role Phone WongKacey martinez RASHMI Primary Care Provider [phone] Encounter Details Date Type Department Care Team (Late st Contact Info) Description 07/25/2022 Orders Only [facility] [address] [place] [address] Paul Mejia MD Social History Tobacco Use [...] Gender Identity Male 06/12/2021 5:16 AM COMPUTER TECHNOLOGY TEACHER Sexual Orientation Straight 06/28/2021 10 :21 [...] Description 08/05/2024 10:00 AM CDT Office Visit [facility] Family & Internal Medicine [facility] [address] [place] [address] [place] [address] [place] [address] 02/15/2025 10:45 AM COMPUTER TECHNOLOGY TEACHER Office Visit [facility] [address] [place], [place] [phone] Dale Shahid MD [facility], [address] [place] [address] documented as of this encounter Results * (ABNORMAL) BASIC METABOLIC PANEL (07/25/2022 7:15 AM CDT) GLUCOSE 121(H) 70 - 99 MG/DL 07/25/2022 8:[address] [facility] BUN 26(H) 7 - 18 MG/DL 07/25/2022 8:[address] [facility] CREATININE S/P/B 1.31(H) 0.7 - 1.3 MG/DL 07/25/2022 8:[address] [facility] SODIUM S/P/B 139 136 - 145 MMOL/L 07/25/2022 8:[address] [facility] POTASSIUM S/P/B 4.7 3.5 - 5.1 MMOL/L 07/25/2022 8:[address] [facility] CHLORIDE S/P/B 104 100 - 108 MMOL/L 07/25/2022 8:[address] [facility] CO2 27.4 21 - 32 MMOL/L 07/25/2022 8:[address] [facility] CALCIUM S/P/B 8.7 8.5 - 10.1 MG/DL 07/25/2022 8:[address] [facility] ANION GAP 7.6 5 - 15 MMOL/L 07/25/2022 8:[address] [facility] BUN CREATININE RATIO 19.8 6 - 26 07/25/2022 8:[address] [facility] GFR ESTIMATE 60(L) >90 ML/MIN/1.7 3 M2 07/25/2022 8:[address] [facility] Comment: NOTE: eGFR is not calculated for patients <18 years of age. This is an estimated GFR calculation using the new CKD EPI creatinine equation without race and so does not require a correction factor for race. This estimated GFR should not be used for calculating drug doses. 07/25/2022 7:15 AM CDT us Paul Mejia MD LABORATORY Final Re sult [facility] [address] [place] [address], documented in this encounter Visit Diagnoses Diagnosis CAD (coronary artery disease)- Primary Coronary atherosclerosis of unspecified type of vessel, north fork or graft documented in this encounter Additional Health Concerns Assessment Noted Time PHQ-9 Depression Total Score: 0 12/14/19 21 9:36 AM CDT documented as of this encounter Care Teams Block Making Machine Operator Relationship Specialty Start [place] [address] [address] [place] [address] PCP - General Nurse Practitioner Family 07/20/2206/13 documented as of this encounter
--- OUTSIDE RECORDS SUMMARY | 2024-04-11 05:35 | XMS_ITS | Encounter Summary ---
Author Organization [facility] Address [address] [place] [address]. [place], [place] [address] [place] [address] Care Team Providers Care Television Program Director Name Role Phone Kacey Lafleur GENERAL INTERNIST Primary Care Provider [phone] Reason for Visit * Reason Comments Follow Up Transferring care fr Dr Keith Pt would like to discuss glucose level and medication refills Encounter Details Date Type Department Care Team (Late st Contact Info) Description 08/08/2022 11:20 AM CDT Office Visit [facility] Family & Internal Medicine [facility] [address] [place] [address] Kacey Lafleur NP [address] [place] [address], [address] [place] [address] Follow Up (Transferring care from Dr Keith /Pt would like to discuss glucose level and medication refills) Social History Tobacco Use Types Packs/Day Years [...] CDT Gender Identity Male 06/12/2021 5:16 AM PLAY WRITER Sexual Orientation Straight 06/28/2021 10 :21 AM CDT COVID-19 Exposure Response Date Recorded In the last 10 days, have yo u been in contact with someone who was confirmed or suspected to have Coronavirus/COVID-19? No / Unsure 08/08/2022 8:45 AM CDT documented as of this encounter Last Filed Vital Signs Vital Sign Reading Time Taken Comments Blood Pressure 132/83 08/08/2022 11:12 AM CDT Pulse 61 08/08/2022 11:12 AM CDT Temperature 36.8 ??C (98.2 ??F) 08/08/2022 11:12 AM C DT Respiratory Rate 14 08/08/2022 11:12 AM CDT Oxygen Saturation 98% 08/08/2022 11:12 AM CDT Inhaled Oxygen Concentration - - Weight 123.8 kg (273 lb) 08/08/2022 11:12 AM CDT Height 182.9 cm (6') 08/08/2022 11:12 AM CDT Body Mass Index 37.03 08/08/2022 11:12 AM CDT documented in this encounter Progress Notes * Kacey Lafleur NP - 08/08/2022 11:20 AM CDT Reason for Visit: Follow Up (Transferring care from Dr Keith /Pt would like to discuss glucose level and medication refills) History of Present Illness: Transition into care-- transfer from Dr. Keith Annual-- here for annual exam Prediabetes-- reports his A1C has been borderline. He does not follow dm diet. He walks 4x/week. CAD-- hx of [place]. Taking meds as rx. Managed by dross skimmer. Hyperlipemia-- managed by cardiology per patient. Hypothyroid-- taking med as rx. No concerns. Needs a refill. Health Maintenance: Colonoscopy: 7 years ago. Was told to repeat in 2025 Immunizations: refused covid booster, pneumonia and shingles. Body mass index is 37.03 kg/m??. Physical activity: 4x/week Dental: every 6mo. Vision: yearly HCV: refused PSA: 08/23/21 ROS: Review of Systems Constitutional: Negative for [...] (coronary artery disease) COVID-[address] [facility] Disease of thyroid gland Hypercholesterolemia Influenza vaccine refused 12/13/2020 Kidney stones Past Surgical History: Procedure Laterality Date CARDIAC STENTS 10/14/2020 LITHOTRIPSY Social History Socioeconomic History Marital status: Tobacco Use Smoking status: Never Smokeless tobacco: Never Vaping Use Vaping Use: Never used Substance and Sexual Activity Alcohol use: Not Currently Comment: occasional glass of wine Drug use: No Other Topics Concern Caffeine Concern No Special Diet No Exercise Yes Social History Narrative Lives at home with Family History Problem Relation Name Age of [...] (Not Specified) Other (Not Specified) Filed Vitals: 08/08/22 1112 BP: 132/83 Pulse: 61 Resp: 14 Temp: 98.2 ??F (36.8 ??C) TempSrc: Temporal SpO2: 98% Weight: 123.8 kg (273 lb) Height: 6' (1.829 m) Physical Exam Vitals and nursing note reviewed. Constitutional: Appearance: Normal appearance. HENT: Head: Normocephalic and atraumatic. Eyes: Extraocular Movements: Extraocular movements intact. Conjunctiva/sclera: Conjunctivae normal. Pupils: Pupils are equal, round, and reactive to light. Neck: Thyroid: No thyroid mass or thyromegaly. Vascular: No carotid bruit. Trachea: Trachea normal. Cardiovascular: Rate and Rhythm: Normal rate and regular rhythm. Heart sounds: Normal heart sounds. Pulmonary: Effort: Pulmonary effort is normal. Breath sounds: Normal breath sounds. Abdominal: General: Abdomen is flat. Bowel sounds are normal. Palpations: Abdomen is soft. There is no mass. Tenderness: There is no abdominal tenderness. Musculoskeletal: Cervical back: Neck supple. Right lower leg: No edema. Left lower leg: No edema. Lymphadenopathy: Cervical: No cervical adenopathy. Skin: General: Skin is warm and dry. Neurological: Mental Status: He is alert. Psychiatric: Mood and Affect: Mood normal. Behavior: Behavior normal. Behavior is cooperative. Thought Content: Thought content normal. Judgment: Judgment normal. Results for orders placed or performed in visit on 08/08/22 HEMOGLOBIN, GLYCOSYLATED Result Value Ref Range HGB A1C 5.8 % Assessment: 1. Annual physical exam 2. Mixed hyperlipidemia 3. Coronary artery disease involving cantwell coronary artery of cantwell heart without angina pectoris 4. Other specified hypothyroidism THYROID STIM HORMONE, TSH VENIPUNC ARM DRAW 5. Prediabetes HEMOGLOBIN, GLYCOSYLATED VENIPUNC ARM DRAW 6. Depression screening Plan: 1. Annual physical exam F/u 1 year 2. Mixed hyperlipidemia Monitored and managed by cardiology 3. Coronary artery disease involving cantwell coronary artery of cantwell heart without angina pectoris Managed by cardiology 4. Other specified hypothyroidism Continue medication as prescribed. F/u 6mo. - THYROID STIM HORMONE, TSH; Future - THYROID STIM HORMONE, TSH--today - VENIPUNC ARM DRAW 5. Prediabetes Will check hgb A1C today Recommend low carb., low sugar diet. Continue regular exercise. - HEMOGLOBIN, GLYCOSYLATED - VENIPUNC ARM DRAW 6. Depression screening I personally spent a total of 30 minutes on the day of the encounter. This includes [id number] and jkp-ibaz-fn-face time I provided on the day of the encounter & excludes time spent performing separately reportable services. OCTAVIO BARNHART * Kacey Lafleur NP - 08/08/2022 11:20 AM CDT Please let patient know tsh and hgb A1C are normal. Continue current dosage of thyroid med. Order repeat TSH in 6mo. Thanks -ED documented in this encounter Plan of Treatment Upcoming Encounters Date Type Department Care Team (Late st Contact Info) Description 08/05/2024 10:00 AM CDT Office Visit [facility] Family & Internal Medicine [place] [address] [place] [address] [address] [place], [place] [phone] 02/15/2025 10:45 AM PLAY WRITER Office Visit [facility] [address] [place], [place] [phone] Dale Shahid MD [facility], [address] [place] [address] documented as of this encounter Procedures Procedure Name Priority Date/Time Associated Diagnosis Comments VENIPUNC ARM DRAW Routine 08/08/2022 11: 59 AM CDT Other specified hypothyroidism Prediabetes THYROID STIM HORMONE TSH Routine 08/08/2022 11:50 AM CDT Other specified hypothyroidism HEMOGLOBIN, GLYCOSYLATED Routine 08/08/2022 Prediabetes documented in this encounter Results * THYROID STIM HORMONE, TSH (08/08/2022 11:50 AM CDT) TSH 2.05 0.40 - 4.50 mIU/L [employer] [facility] 08/08/2022 11:5 0 AM CDT 08/09/2022 4:09 AM CDT Narrative Resulting Agency Comment Performing Organization Information: ?Site ID: [id number] ?Name: [facility] ?Address: [address] [facility] [place] [address] ?Director: Aimee Dunlap MD us Kacey Lafleur NP LABORATORY Final Result [facility] [employer] [facility] [address] [facility] [place] [address], * HEMOGLOBIN, GLYCOSYLATED (08/08/2022) HGB A1C 5.8 % [id number] [address], [place] 08/08/2022 us Kacey Lafleur NP LABORATORY Final Result Performing Organization Address City/State/[facility] [[email or web address]] Co de Phone Number [phone] [facility] [address] [place] [address], documented in this encounter Visit Diagnoses Diagnosis Annual physical exam- Primary Routine general medical examination at a health care facility Mixed hyperlipidemia Coronary artery disease involving cantwell coronary artery of cantwell heart without angina pectoris Other specified hypothyroidism Prediabetes Other abnormal glucose Depression screening Screening for depression documented in this encounter Additional Health Concerns Assessment Noted Time PHQ-9 Depression Total Score: 0 12/14/19 21 9:36 AM CDT documented as of this encounter Care Teams Television Program Director Relationship Specialty [place] [address] [address], [address] [place] [address] PCP - General Nurse Practitioner Family 07/20/2206/13 documented as of this encounter
--- OUTSIDE RECORDS SUMMARY | 2024-04-11 05:35 | XMS_ITS | Encounter Summary ---
Author Organization [facility] Address [address] [place] [address]. 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 No / Unsure 03/07/2021 1:14 PM INTERIOR WALL ASSEMBLER documented as of this encounter Plan of Treatment Upcoming Encounters Date Type Department Care Team (Late st Contact Info) Description 08/05/2024 10:00 AM CDT Office Visit [facility] Family & Internal Medicine [facility] [address] [place] [address] [place] [address] [place] [address] [place] [address] 02/15/2025 10:45 AM INTERIOR WALL ASSEMBLER Office Visit [facility] [address] [place] [address] Dale Shahid MD [facility], [address] [place] [address] documented as of this encounter Visit Diagnoses Not on filedocumented in this encounter Additional Health Concerns Assessment Noted Time PHQ-9 Depression Total Score: 0 12/14/19 9:36 AM CDT documented as of this encounter Care Teams Brand Marketing Manager Relationship Specialty Start Date End Date Paul Mejia MD PCP - General INTERNAL MEDICINE 12/13/20 07/19/22 documented as of this encounter
--- OUTSIDE RECORDS SUMMARY | 2024-04-11 05:35 | XMS_ITS | Encounter Summary ---
Author Organization [facility] Address [address] [place] [address]. [place] [address] [place] [address] Care Team Providers Care Platen Grinder Name Role Phone Kacey Lafleur NP Primary Care Provider [phone] Amado Mathew Primary Care Provider [phone] Encounter Details Date Type Department Care Team (Late st Contact Info) Description 07/25/2022 Avaz Message Enc [facility], [address] [id number] [facility], [facility] Provider Lab results Social History Tobacco Use Types Packs/Day Years [...] CDT Gender Identity Male 06/12/2021 5:16 AM OCEANOGRAPHY PROFESSOR Sexual Orientation Straight 06/28/2021 10 :21 AM [...] HOSPITAL Medical Group Family & Internal Medicine [facility] [address] [place] [address] [place] [address] [place], [place] [id number] 02/15/2025 10:45 AM OCEANOGRAPHY PROFESSOR Office Visit [facility] [address] [place] [address] Dale Shahid MD [facility], [address] [place] [address] documented as of this encounter Visit Diagnoses Not on filedocumented in this encounter Additional Health Concerns Infection Onset Date Last Indicated Resolved Time COVID-19 Rule Out 02/27/2023 02/27/2023 02/27/2023 8:20 AM OCEANOGRAPHY PROFESSOR COVID-19 Rule Out 02/28/2023 02/28/2023 02/28/2023 9:17 AM OCEANOGRAPHY PROFESSOR COVID-19 Confirmed 02/28/2023 02/28/2023 12:32 AM OCEANOGRAPHY PROFESSOR COVID-19 Rule Out 04/06/2024 04/06/2024 04/06/2024 7:33 AM OCEANOGRAPHY PROFESSOR COVID-19 Confirmed 04/06/2024 04/06/2024 Assessment Noted Time PHQ-9 Depression Total Score: 0 12/14/19 9:36 AM CDT documented as of this encounter Care Teams Platen Grinder Relationship Specialty Start [place] [address] [facility] [address] [place] [address] PCP - General Nurse Practitioner Family 07/20/2206/13 [place] [address] [place] [address] PCP - General Physician Premium Representative Medical 06/25/23 documented as of this encounter
--- OUTSIDE RECORDS SUMMARY | 2024-04-11 05:35 | XMS_ITS | Encounter Summary ---
Author Organization [facility] Address [address] [place] [address]. [place], [place] [address] [place] [address] Care Team Providers Care Environmental Science Program Director Name Role Phone Paul Mejia MD Primary Care Provider U johnshannan Encounter Details Date Type Department Care Team (Latest Contact Info) Description 08/09/2021 Travel Social History Tobacco Use Types Packs/Day [...] CDT Gender Identity Male 06/12/2021 5:16 AM PROMOTIONS REPRESENTATIVE Sexual Orientation Straight 06/28/2021 10 :21 [...] Description 08/05/2024 10:00 AM CDT Office Visit [facility] Family & Internal Medicine [facility] [address] [place] [address] [place] [address] [place] [address] 02/15/2025 10:45 AM PROMOTIONS REPRESENTATIVE Office Visit [facility] [address] [place] [address] Dale Shahid MD [facility], [address] [place] [address] documented as of this encounter Visit Diagnoses Not on filedocumented in this encounter Additional Health Concerns Assessment Noted Time PHQ-9 Depression Total Score: 0 12/14/19 21 9:36 AM CDT documented as of this encounter Care Teams Environmental Science Program Director Relationship Specialty Start Date End Date Paul Mejia MD PCP - General INTERNAL MEDICINE 12/13/20 07/19/22 documented as of this encounter
--- OUTSIDE RECORDS SUMMARY | 2024-04-11 05:35 | XMS_ITS | Encounter Summary ---
Author Organization [facility] Address [address] [place] [address]. [place], [place] [address] [place] [address] Care Team Providers Care Calibration Checker Name Role Phone Kacey Lafleur POLYSOMNOGRAPHIC TECH Primary Care Provider [phone] Reason for Visit * Reason Comments Pre-Op Exam Pt is having total l eft knee replacement on October 29, 2022 at [facility] by Dr. Elton Riggs. Just need to have clearance in his record. No form was brought to visit. Encounter Details Date Type Department Care Team (Late st Contact Info) Description 10/09/2022 1:00 PM CDT Office Visit [facility] Medical Group Family & Internal Medicine [address] [address] Kacey Lafleur NP [address] [place] [address], [address] [place] [address] Pre-Op Exam (Pt is having total left knee replacement on October 29, 2022 at [facility] by Dr. Elton Riggs. Just need to have clearance in his record. No form was brought to visit. 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 Alcohol Use Standard Drinks/Week Comments Not Currently 0 (1 standard drink = 0.6 oz pur e alcohol) occasional glass of wine PHQ-2 Answer Date Recorded Patient Health Questionnaire-2 Score 0 08/08/2022 Sex and Gender Information Value Date Recorded Sex Assigned at Not on file Legal Sex Male 7:33 PM CDT Gender Identity Male 06/12/2021 5:16 AM NUCLEAR FUELS RESEARCH ENGINEER Sexual Orientation Straight 06/28/2021 10 :21 AM CDT documented as of this encounter Last Filed Vital Signs Vital Sign Reading Time Taken Comments Blood Pressure 131/89 10/09/2022 12:51 PM CDT Pulse 77 10/09/2022 12:51 PM CDT Temperature 36.8 ??C (98.2 ??F) 10/09/2022 12:51 PM C DT Respiratory Rate 17 10/09/2022 12:51 PM CDT Oxygen Saturation 97% 10/09/2022 12:51 PM CDT Inhaled Oxygen Concentration - - Weight 125.2 kg (276 lb) 10/09/2022 12:51 PM CDT Height 182.9 cm (6') 10/09/2022 12:51 PM CDT Body Mass Index 37.43 10/09/2022 12:51 PM CDT documented in this encounter Progress Notes * Kacey Lafleur NP - 10/09/2022 1:00 PM CDT Reason for Visit: Pre-Op Exam (Pt is having total left knee replacement on October 29, 2022 at [facility] by Dr. Elton Riggs. Just need to have clearance in his record. No form was brought to visit. ) History of Present Illness: preop-- surgery date 10/29/22. Procedure is left knee replacement Surgeon is Dr. Riggs. . Preop testing we done by Dr. Riggs. Patient has had anesthesia before with no problems. No family hx of any anesthesia reaction. No personal or family history of any bleeding or clotting disorders. Father, brother, nephew hx [place]. Patient does take meloxicam and aspirin and he was told to stop taking 10 days prior to surgery. Patient is not taking a blood thinner. Patient does not use tobacco. Patient will recover at home with family. He was cleared by cardiology. OA-- left knee. ROS: Review of Systems Constitutional: Negative for fever, malaise/fatigue and weight loss. Respiratory: Negative for cough and shortness of breath. Cardiovascular: Negative for chest pain, palpitations and leg swelling. Gastrointestinal: Negative. Negative for abdominal pain, constipation and diarrhea. Genitourinary: Negative. Musculoskeletal: Positive for joint pain. Negative for myalgias. Skin: Negative for rash. Neurological: Negative for seizures, weakness and headaches. Endo/Heme/Allergies: Does not bruise/bleed easily. Psychiatric/Behavioral: Negative for depression and suicidal ideas. 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 Constitutional: Appearance: Normal appearance. He is obese. HENT: Head: Normocephalic and atraumatic. Right Ear: Tympanic membrane and ear canal normal. Left Ear: Tympanic membrane and ear canal normal. Nose: Nose normal. Mouth/Throat: Mucous membranes are moist. Oropharynx is clear. Eyes: Extraocular Movements: Extraocular movements intact. Conjunctiva/sclera: [...] Content: Thought content normal. Judgment: Judgment normal. Diagnoses/Impression: 1. Preop examination 2. Primary osteoarthritis of left knee 3. Mixed hyperlipidemia atorvastatin (LIPITOR) 80 MG tablet 4. Class 2 obesity due to excess calories without serious comorbidity with body mass index (BMI) of37.0 to 37.9 in adult Recommendations and Plan: 1. Preop examination Patient is at acceptable risk for planned surgery. Preop testing completed and reviewed by orthopedic surgeon. Cardiac clearance done by Dr. Shahid. 2. Primary osteoarthritis of left knee 3. Mixed hyperlipidemia Needing refill. - atorvastatin (LIPITOR) 80 MG tablet; Take 1 tablet (80 mg total) by mouth nightly at bedtime. Dispense: 90 tablet; Refill: 3 4. Class 2 obesity due to excess calories without serious comorbidity with body mass index (BMI) of37.0 to 37.9 in adult I personally spent a total of 30 minutes on the day of the encounter. This includes prld-nl-kgwc and nyw-klxa-nb-face time I provided on the day of the encounter & excludes time spent performing separately reportable services. OCTAVIO BARNHART Cosigned by Dom Martin MD at 10/09/2022 7:27 PM CDT documented in this encounter Plan of Treatment Upcoming Encounters Date Type Department Care Team (Late st Contact Info) Description 08/05/2024 10:00 AM CDT Office Visit [facility] Medical Group Family & Internal Medicine - [place] [address] [place] [address] [place] [address] [place] [address] 02/15/2025 10:45 AM NUCLEAR FUELS RESEARCH ENGINEER Office Visit [facility] [address] [place] [address] Dale Shahid MD [facility], [address] [place], [place] [id number] documented as of this encounter Visit Diagnoses Diagnosis Preop examination- Primary Preoperative examination, unspecified Primary osteoarthritis of left knee Primary localized osteoarthrosis, lower leg Mixed hyperlipidemia Class 2 obesity due to excess calories without serious comorbidity with body mass index (BMI) of 37.0 to 37.9 in adult documented in this encounter Additional Health Concerns Assessment Noted Time PHQ-9 Depression Total Score: 0 12/14/19 21 9:36 AM CDT documented as of this encounter Care Teams Calibration Checker Relationship Specialty [place] [address] [facility], [address] [place] [address] PCP - General Nurse Practitioner Family 07/20/2206/13 documented as of this encounter
--- OUTSIDE RECORDS SUMMARY | 2024-04-11 05:35 | XMS_ITS | Encounter Summary ---
Author Organization [facility] Address [address] [place] [address]. [place], [place] [address] [place] [address] Care Team Providers Care Operator Coating Furnace Name Role Phone Paul Mejia MD Primary Care Provider U Kacey Arias NP Primary Care Provider [phone] Amado Mathew Primary Care Provider [phone] Encounter Details Date Type Department Care Team (Late st Contact Info) Description 07/13/2022 Circle Message Enc [facility] [address] [place] [address] Alise, [facility] Provider TSH Social History Tobacco Use Types Packs/Day Years [...] CDT Gender Identity Male 06/12/2021 5:16 AM BURGLAR ALARM MECHANIC Sexual Orientation Straight 06/28/2021 10 :21 AM CDT documented as of this encounter Plan of Treatment Upcoming Encounters Date Type Department Care Team (Late st Contact Info) Description 08/05/2024 10:00 AM CDT Office Visit [facility] [address] [address] [place] [address] [place], [place] [phone] 02/15/2025 10:45 AM BURGLAR ALARM MECHANIC Office Visit [facility] [address] [place] [address] Dale Shahid MD [facility], [address] [place], [place] [phone] documented as of this encounter Visit Diagnoses Not on filedocumented in this encounter Additional Health Concerns Infection Onset Date Last Indicated Resolved Time COVID-19 Rule Out 02/27/2023 02/27/2023 02/27/2023 8:20 AM BURGLAR ALARM MECHANIC COVID-19 Rule Out 02/28/2023 02/28/2023 02/28/2023 9:17 AM BURGLAR ALARM MECHANIC COVID-19 Confirmed 02/28/2023 02/28/2023 12:32 AM BURGLAR ALARM MECHANIC COVID-19 Rule Out 04/06/2024 04/06/2024 04/06/2024 7:33 AM BURGLAR ALARM MECHANIC COVID-19 Confirmed 04/06/2024 04/06/2024 Assessment Noted Time PHQ-9 Depression Total Score: 0 12/14/19 21 9:36 AM CDT documented as of this encounter Care Teams Operator Coating Furnace Relationship Specialty Start Date End Date Paul Mejia MD PCP - General INTERNAL MEDICINE 12/13/20 07/19/22 [place] [address] [id number] PCP - General Nurse Practitioner Family 07/20/2206/13 [place] [address] [place] [address] PCP - General Physician Manager [employer] 06/25/23 documented as of this encounter
--- OUTSIDE RECORDS SUMMARY | 2024-04-11 05:35 | XMS_ITS | Encounter Summary ---
Author Organization [facility] Address [address] [place] [address]. [place], [place] [address] [place] [address] Care Team Providers Care Regulatory Analyst Name Role Phone Paul Cain MD Primary Care Provider U navailable Reason for Visit * Reason Comments Runny Nose Bloody nasal dischar ge Sore Throat Cough Earache Right ear ache Sinus Problem Encounter Details Date Type Department Care Team (Late st Contact Info) Description 10/31/2021 10:00 AM CDT Office Visit [facility] [address] [place] [address] Minoo Grover, PRINCIPAL SOFTWARE ARCHITECT [address] [facility] [address] [place] [address] Runny Nose (Bloody nasal discharge); Sore Throat; Cough; Earache (Right ear ache/); Sinus Problem Social History Tobacco Use Types Packs/Day Years [...] CDT Gender Identity Male 06/12/2021 5:16 AM CHECKER CASHIER Sexual Orientation Straight 06/28/2021 10 :21 AM CDT COVID-19 Exposure Response Date Recorded In the last 10 days, have nicole cantor been in contact with someone who was confirmed or suspected to have Coronavirus/COVID-19? No / Unsure 10/31/2021 9:27 AM CDT documented as of this encounter Last Filed Vital Signs Vital Sign Reading Time Taken Comments Blood Pressure 104/76 10/31/2021 9:34 AM CDT Pulse 71 10/31/2021 9:34 AM CDT Temperature 36.5 ??C (97.7 ??F) 10/31/2021 9:34 AM CD T Respiratory Rate 20 10/31/2021 9:34 AM CDT Oxygen Saturation 98% 10/31/2021 9:34 AM CDT Inhaled Oxygen Concentration - - Weight 118.9 kg (262 lb 3.2 oz) 10/31/2021 9:34 AM CDT Height 182.9 cm (6') 10/31/2021 9:34 AM CDT Body Mass Index 35.56 10/31/2021 9:34 AM CDT documented in this encounter Progress Notes * Minoo Grover NP - 10/31/2021 10:06 AM CDT Reason for Visit: Runny Nose (Bloody nasal discharge), Sore Throat, Cough, Earache (Right ear ache/), and Sinus Problem History of Present Illness: Radha Zhang is a 66-year-old male presenting today to [facility] in [place] complaining of headache, sore throat, post nasal drainage, sinus congestion, rhinorrhea and right ear pain for the past 5 days. Pt has been taking saline and other OTC medications for symptoms. Pt notes PMH as below. Pt continues to eat and drink well with adequate output. Pt admits to sick contacts via his ; negative for COVID. Pt denies other concerning symptoms. Pt is vaccinated against COVID. ROS: Review of Systems HENT: Positive for congestion, ear pain and sore throat. Respiratory: Positive for cough. All other systems reviewed and are negative. Medications: Current Outpatient Medications Medication Sig Dispense Refill ??? amoxicillin (AMOXIL) 500 MG tablet Take 1 tablet (500 mg total) by mouth 2 (two) times daily for 10 days. 20 tablet 0 ??? ASPIRIN EC 81 MG tablet Take 81 mg by mouth daily. ??? atorvastatin 80 MG tablet Take 80 mg by mouth nightly at bedtime. ??? BRILINTA 90 MG tablet Take 1 tablet (90 mg total) by mouth 2 (two) times daily. 180 tablet 3 ??? CARVEDILOL 3.125 MG tablet TAKE 1 TABLET BY MOUTH 2 TIMES DAILY. 180 tablet 1 ??? levothyroxine 125 MCG tablet Take 1 tablet (125 mcg total) by mouth every morning. 90 tablet 1 ??? Multiple Vitamins-Minerals (CENTRUM SILVER) Tab Take 1 tablet by mouth daily. ??? potassium citrate CR 10 MEQ (1080 MG) tablet Take 10 mEq by mouth 3 (three) times daily with meals. ??? vitamin D3, cholecalciferol, 75 MCG (3000 UT) Tab tablet Take 3,000 Units by mouth daily. ??? nitroglycerin 0.[address] 0.4 mg under the tongue. No current facility-administered medications for this visit. No Known Allergies Previous History: Past Medical History: Diagnosis Date ??? CAD (coronary artery disease) ??? COVID-19 vaccine administered [employer] ??? Disease of thyroid gland ??? Hypercholesterolemia ??? Influenza vaccine refused 12/13/2020 ??? Kidney stones Past Surgical History: Procedure Laterality Date ??? CARDIAC STENTS 10/14/2020 ??? LITHOTRIPSY Social Determinants of Health Tobacco Use: Low Risk ??? Smoking Tobacco Use: Never Smoker ??? Smokeless Tobacco Use: Never Used Alcohol Use: Not on file Financial Resource Strain: Not on file Food Insecurity: Not on file Transportation Needs: Not on file Physical Activity: Not on file Stress: Not on file Social Connections: Not on file Intimate Partner Violence: Not on file Depression: Not at risk ??? PHQ-2 Score: 0 Housing Stability: Not on file Family History Problem Relation Name Age of Onset ??? Diabetes Mother ??? Heart Disease Father ??? Open Heart Father ??? Diabetes Brother ??? Heart Disease Brother ??? Kidney Disease Brother ??? Other (cardiac stent) Brother ??? Heart Attack Paternal Grandmother ??? Heart Attack Paternal Grandfather Physical Exam Vitals reviewed. Constitutional: General: He is not in acute distress. Appearance: He is well-developed. HENT: Right Ear: A middle ear effusion (purulent) is present. Tympanic membrane is bulging. Left Ear: A middle ear effusion (purulent) is present. Tympanic membrane is bulging. Eyes: Pupils: Pupils are equal, round, and reactive to light. Cardiovascular: Rate and Rhythm: Normal rate and regular rhythm. Heart sounds: Normal heart sounds. Pulmonary: Effort: Pulmonary effort is normal. No respiratory distress. Breath sounds: Normal breath sounds. Musculoskeletal: Cervical back: Normal range of motion. Skin: General: Skin is warm and dry. Capillary Refill: Capillary refill takes less than 2 seconds. Neurological: Mental Status: He is alert and oriented to person, place, and time. Filed Vitals: 10/31/21 0934 BP: 104/76 Pulse: 71 Resp: 20 Temp: 97.7 ??F (36.5 ??C) SpO2: 98% Weight: 118.9 kg (262 lb 3.2 oz) Height: 6' (1.829 m) Diagnosis/Impression: 1. Acute suppurative otitis media of both ears without spontaneous rupture of tympanic membranes, recurrence not specified 2. Cough Plan and Recommendations: Prescriptions written as above; discussed risks, benefits and administration. Discussed differentials and etiologies. Reviewed supportive care as below. Increase fluid intake and get plenty of rest. Sore throat-May try as needed: salt water gargles (1/4-1/2 teaspoon of salt per 8 oz glass warm water), ibuprofen (Advil) as directed on the bottle for age/weight--take with food, Chloroseptic spray as directed on the bottle for age/weight, cough drops as directed on the package for age/weight or hard candy, or teaspoon honey or heavy peach syrup. Nasal congestion-May try as needed: Jorje's Vapor Rub, humidifier, nasal saline spray as well as nasal saline flushes/Laurel Pot and Flonase. May try oral antihistamines (claritin/larisa/zyrtec) as directed on the package for age/weight Fever/Comfort: May try Tylenol (acetaminophen) or Advil/Motrin (ibuprofen) as directed on the bottle for age/weight as needed. Cough: May also try teaspoon honey or heavy peach syrup every 4 hrs as needed. Minoo Grover APRN VEHICLE DETAILER-C Note routed to PAUL CAIN MD Cosigned by Dagoberto Bee MD at 11/05/2021 10:49 AM CDT documented in this encounter Plan of Treatment Upcoming Encounters Date Type Department Care Team (Late st Contact Info) Description 08/05/2024 10:00 AM CDT Office Visit [facility] Medical Group Family & Internal Medicine - [place] [address] [place] [address] [place] [address] [place] [address] 02/15/2025 10:45 AM CHECKER CASHIER Office Visit [facility] [address] [place] [address] Dale Shahid MD [address] [facility], [address] [place], [place] [phone] documented as of this encounter Procedures Procedure Name Priority Date/Time Associated Diagnosis Comments CORONAVIRUS (COVID-19) ANTIGEN Routine 10/31/2021 Cough documented in this encounter Results * CORONAVIRUS (COVID-19) ANTIGEN (10/31/2021) CORONAVIRUS ANTIGEN IA NEGATIVE NEGATIVE [facility] ([id number]), [facility] Internal Control: VALID VALID [employer] ([id number]), [facility] NASAL NASAL STRUCTURE / Unknown 10/31/2021 us Minoo Grover NP MICROBIOLOGY - GENERAL ORDERA BLES Final Result [facility] ([id number]), [facility] [address] [address], documented in this encounter Visit Diagnoses Diagnosis Acute suppurative otitis media of both ears without spontaneous rupture of tympanic membranes, recurrence not specified- Primary Cough documented in this encounter Additional Health Concerns Infection Onset Date Last Indicated Resolved Time COVID-19 Rule Out 10/31/2021 10/31/2021 10/31/2021 12:12 PM CDT Assessment Noted Time PHQ-9 Depression Total Score: 0 12/14/19 9:36 AM CDT documented as of this encounter Care Teams Regulatory Analyst Relationship Specialty Start Date End Date Paul Cain MD PCP - General INTERNAL MEDICINE 12/13/20 07/19/22 documented as of this encounter
--- OUTSIDE RECORDS SUMMARY | 2024-04-11 05:35 | XMS_ITS | Encounter Summary ---
Author Organization [facility] Address [address] [place] [address]. [place], [place] [address] [place] [address] Care Team Providers Care Electronic Operator Name Role Phone WongKacey martinez RASHMI Primary Care Provider [phone] Encounter Details Date Type Department Care Team (Latest Contact Info) Description 07/25/2022 Travel Social History Tobacco Use Types Packs/Day [...] CDT Gender Identity Male 06/12/2021 5:16 AM ELECTRIC ENGINE MECHANIC Sexual Orientation Straight 06/28/2021 10 :21 [...] HOSPITAL Medical Group Family & Internal Medicine [facility] [address] [place] [address] [place] [address] [place] [id number] 02/15/2025 10:45 AM ELECTRIC ENGINE MECHANIC Office Visit [facility] [address] [place] [address] Dale Shahid MD [facility], [address] [place] [address] documented as of this encounter Visit Diagnoses Not on filedocumented in this encounter Additional Health Concerns Assessment Noted Time PHQ-9 Depression Total Score: 0 12/14/19 21 9:36 AM CDT documented as of this encounter Care Teams Electronic Operator Relationship Specialty Start [place] [address] [address], [address] [place] [address] PCP - General Nurse Practitioner Family 07/20/2206/13 documented as of this encounter
--- OUTSIDE RECORDS SUMMARY | 2024-04-11 05:35 | XMS_ITS | Encounter Summary ---
Author Organization [facility] Address [address] [place] [address]. [place], [place] [address] [place] [address] Care Team Providers Care Munitions Factory Worker Name Role Phone Paul Mejia MD Primary Care Provider U bashirskipshannan Encounter Details Date Type Department Care Team (Latest Contact Info) Description 08/23/2021 Travel Social History Tobacco Use Types Packs/Day [...] CDT Gender Identity Male 06/12/2021 5:16 AM MUD GRINDER Sexual Orientation Straight 06/28/2021 10 :21 [...] Description 08/05/2024 10:00 AM CDT Office Visit [facility] Family & Internal Medicine [facility] [address] [place] [address] [place] [address] [place] [address] 02/15/2025 10:45 AM MUD GRINDER Office Visit [facility] [address] [place] [address] Dale Shahid MD [facility], [address] [place] [address] documented as of this encounter Visit Diagnoses Not on filedocumented in this encounter Additional Health Concerns Assessment Noted Time PHQ-9 Depression Total Score: 0 12/14/19 21 9:36 AM CDT documented as of this encounter Care Teams Munitions Factory Worker Relationship Specialty Start Date End Date Paul Mejia MD PCP - General INTERNAL MEDICINE 12/13/20 07/19/22 documented as of this encounter
--- OUTSIDE RECORDS SUMMARY | 2024-04-11 05:35 | XMS_ITS | Encounter Summary ---
Author Organization [facility] Address [address] [place] [address]. [place], [place] [address] [place] [address] Care Team Providers Care Marketing Strategy Analyst Name Role Phone Paul Mejia MD Primary Care Provider U bashirailable Encounter Details Date Type Department Care Team (Late st Contact Info) Description 11/20/2021 Orders Only [facility] Family & Internal Medicine [address] [address] Paul Mejia MD Social History [...] CDT Gender Identity Male 06/12/2021 5:16 AM COOKEE Sexual Orientation Straight 06/28/2021 10 :21 AM [...] Medical Group Family & Internal Medicine - [place] [address] [place] [address] [place] [address] [place] [address] 02/15/2025 10:45 AM COOKEE Office Visit [facility] [address] [place] [address] Dale Shahid MD [facility], [address] [place] [address] documented as of this encounter Visit Diagnoses Diagnosis Hyperglycemia- Primary Other abnormal glucose documented in this encounter Additional Health Concerns Assessment Noted Time PHQ-9 Depression Total Score: 0 12/14/19 21 9:36 AM CDT documented as of this encounter Care Teams Marketing Strategy Analyst Relationship Specialty Start Date End Date Paul Mejia MD PCP - General INTERNAL MEDICINE 12/13/20 07/19/22 documented as of this encounter
--- OUTSIDE RECORDS SUMMARY | 2024-04-11 05:35 | XMS_ITS | Encounter Summary ---
Author Organization [facility] Address [address] [place] [address]. [place], [place] [address] [place] [address] Care Team Providers Care Fixed Wing Pilot Name Role Phone JennieKacey membreno MATERIALS AND CORROSION ENGINEER Primary Care Provider [phone] Encounter Details Date Type Department Care Team (Latest Contact Info) Description 10/09/2022 Travel Social History Tobacco Use Types Packs/Day [...] CDT Gender Identity Male 06/12/2021 5:16 AM RIVER AND HARBOR SOUNDINGS GROUP LEADER Sexual Orientation Straight 06/28/2021 10 :21 AM CDT documented as of this encounter Plan of Treatment Upcoming Encounters Date Type Department Care Team (Late st Contact Info) Description 08/05/2024 10:00 AM CDT Office Visit [facility] Medical [facility] Family & Internal Medicine [facility] [address] [place] [address] [place] [address] [place] [address] 02/15/2025 10:45 AM RIVER AND HARBOR SOUNDINGS GROUP LEADER Office Visit [facility] [address] [place] [address] Dale Shahid MD [facility], [address] [place] [address] documented as of this encounter Visit Diagnoses Not on filedocumented in this encounter Additional Health Concerns Assessment Noted Time PHQ-9 Depression Total Score: 0 12/14/19 21 9:36 AM CDT documented as of this encounter Care Teams Fixed Wing Pilot Relationship Specialty [place] [address] [address], [address] [place] [address] PCP - General Nurse Practitioner Family 07/20/2206/13 documented as of this encounter
--- OUTSIDE RECORDS SUMMARY | 2024-04-11 05:35 | XMS_ITS | Encounter Summary ---
Author Organization [facility] Address [address] [place] [address]. [place], [place] [address] [place] [address] Care Team Providers Care Lead Person Name Role Phone JennieKacey membreno RASHMI Primary Care Provider [phone] Encounter Details Date Type Department Care Team (Latest Contact Info) Description 02/05/2023 Travel Social History Tobacco Use Types Packs/Day [...] CDT Gender Identity Male 06/12/2021 5:16 AM RECORDS ANALYST Sexual Orientation Straight 06/28/2021 10 :21 AM CDT documented as of this encounter Plan of Treatment Upcoming Encounters Date Type Department Care Team (Late st Contact Info) Description 08/05/2024 10:00 AM CDT Office Visit [facility] Medical Group Family & Internal Medicine [facility] [address] [place] [address] [place] [address] [place] [address] 02/15/2025 10:45 AM RECORDS ANALYST Office Visit [facility] [address] [place] [address] Dale Shahid MD [facility], [address] [place] [address] documented as of this encounter Visit Diagnoses Not on filedocumented in this encounter Additional Health Concerns Assessment Noted Time PHQ-9 Depression Total Score: 0 12/14/19 21 9:36 AM CDT documented as of this encounter Care Teams Lead Person Relationship Specialty [place] [address] [address], [address] [place] [address] PCP - General Nurse Practitioner Family 07/20/2206/13 documented as of this encounter
--- OUTSIDE RECORDS SUMMARY | 2024-04-11 05:35 | XMS_ITS | Encounter Summary ---
Author Organization [facility] Address [address] [place] [address]. [place], [place] [address] [place] [address] Care Team Providers Care Certified Professional Controller Name Role Phone WongKacey martinez RASHMI Primary Care Provider [phone] Reason for Visit * Reason Onset Date Comments Pre-visit Gap Closure 07/31/2022 Encounter Details Date Type Department Care Team (Late st Contact Info) Description 07/31/2022 Patient Outreach [facility] Medical Group Family & Internal Medicine [facility] [address] [place] [address] Ally Day MA Pre-visit Gap [...] CDT Gender Identity Male 06/12/2021 5:16 AM FABRICATION MANAGER Sexual Orientation Straight 06/28/2021 10 :21 AM CDT COVID-19 Exposure Response Date Recorded In the last 10 days, have yo u been in contact with someone who was confirmed or suspected to have Coronavirus/COVID-19? No / Unsure 07/25/2022 7:03 AM CDT documented as of this encounter Progress Notes * Ally Day MA - 07/31/2022 3:49 PM CDT Preventive Screenings: Colorectal Cancer Screening: Up to Date Notes: Diabetic Eye Exam: N/A Notes: Falls Risk Screening: Up to Date Notes: Tobacco Cessation: N/A Notes: Labs: BMP/CMP: N/A Notes: Hemoglobin A1c: N/A [...] Internal Medicine [facility] [address] [place] [address] [place] [address] [place], [place] [phone] 02/15/2025 10:45 AM FABRICATION MANAGER Office Visit [facility] [address] [place] [address] Dale Shahid MD [facility], [address] [place], [place] [id number] documented as of this encounter Visit Diagnoses Not on filedocumented in this encounter Additional Health Concerns Assessment Noted Time PHQ-9 Depression Total Score: 0 12/14/19 21 9:36 AM CDT documented as of this encounter Care Teams Certified Professional Controller Relationship Specialty Start [place] [address] [facility], [address] [address] PCP - General Nurse Practitioner Family 07/20/2206/13 documented as of this encounter
--- OUTSIDE RECORDS SUMMARY | 2024-04-11 05:35 | XMS_ITS | Encounter Summary ---
Author Organization [facility] Address [address] [place] [address]. [place], [place] [address] [place] [address] Care Team Providers Care Cosmetics Machine Operator Name Role Phone Paul Cain MD Primary Care Provider U navailable Reason for Visit * Reason Comments Coronary Artery Disease Aortic Valve Disorder Lipids Encounter Details Date Type Department Care Team (Late st Contact Info) Description 02/07/2022 9:00 AM CDT Office Visit [facility] [address] [place] [address] Dale Shahid MD [facility], [address], [place] [id number] Coronary Artery Disease; Aortic Valve Disorder; Lipids [...] CDT Gender Identity Male 06/12/2021 5:16 AM CENTERLESS GRINDER Sexual Orientation Straight 06/28/2021 10 :21 AM CDT COVID-19 Exposure Response Date Recorded In the last 10 days, have yo u been in contact with someone who was confirmed or suspected to have Coronavirus/COVID-19? No / Unsure 02/07/2022 8:47 AM CDT documented as of this encounter Last Filed Vital Signs Vital Sign Reading Time Taken Comments Blood Pressure 120/76 02/07/2022 8:48 AM CDT Pulse 70 02/07/2022 8:48 AM CDT Temperature - - Respiratory Rate - - Oxygen Saturation - - Inhaled Oxygen Concentration - - Weight 118.8 kg (262 lb) 02/07/2022 8:48 AM CDT Height 182.9 cm (6') 02/07/2022 8:48 AM CDT Body Mass Index 35.53 02/07/2022 8:48 AM CDT documented in this encounter Progress Notes * Dale Shahid MD - 02/07/2022 9:00 AM CDT Reason for Visit: Coronary Artery Disease, Aortic Valve Disorder, and Lipids History of Present Illness: Mr. Zhang is a 66 year old male with a PMH significant for??CAD with NSTEMI (coronary angiography10/14/20 with 99% mid circumflex disease s/p 3.5x38 mm Resoluted TAWANNA, 40% mid LAD disease, normal left main and RCA),??dyslipidemia (over 20 years),??mild aortic insufficiency,??obesity class II,??CORIN??on CPAP machine, hypothyroidism??and??nephrolithiasis who presents for a follow up visit.?? He feels great. They are getting ready to go to [place] for their usp celebration. They stay active, walk in the [facility] at least 4 times/week. He has made dietary changes, cut his carbohydrates, so his A1c came down from 6.3 to 5.8. Recommendations and Plan: 1. CAD with NSTEMI: S/p TAWANNA to the mid circumflex 10/14/20, has known 40% mid LAD disease per coronary angiography 10/14/20. Continue aspirin 81mg and ticagrelor 90mg bid for at least 12 months though 10/2021 due to acute coronary syndrome then stop ticagrelor and continue aspirin lifelong. On atorvastatin 80mg qhs.??Repeat lipid panel??11/01/20 with LDL 66 mg/dL which is at goal <70 mg/dL. Echo??11/18/20 with normal LV??systolic function 60-65%, mild aortic regurgitation, indeterminate diastolic function.??Continue carvedilol 3.125mg bid. Valsartan was discontinued per his wishes since he had a normal LVEF at the time of the NSTEMI.??Continue his??physical activity and dietary changes. He has completed cardiac rehabilitation.??Continue CAD risk factor modification. Stop ticagrelor 90mg bid today. Continue aspirin 81mg qd. ?? 2. Dyslipidemia: LDL 110 in July 2020, down to 84 in August after they resumed exercise.??Lipid panel11/01/20 with LDL 66 mg/dL, up to 81 mg/dL on 01/17/22, so ezetimibe 10mg qd was added to atorvastatin 80mg qhs for goal LDL <70mg/dL. Repeat lipid panel in 2 months, continue??high intensity with lifestyle modification. ?? 3. Mild aortic insufficiency: Last echo 11/17/20. Well controlled BP, follow up echo in 3-5 years. 4. Prediabetes: Continue lifestyle modification including cutting down on carbohydrates and increasing exercise. Follow up in 6 months. Medications: Current Outpatient Medications: ??? ASPIRIN EC 81 MG tablet, Take 81 mg by mouth daily., Disp: , Rfl: ??? atorvastatin (LIPITOR) 80 MG tablet, Take 1 tablet (80 mg total) by mouth nightly at bedtime., Disp: 30 tablet, Rfl: 2 ??? BRILINTA 90 MG tablet, Take 1 tablet (90 mg total) by mouth 2 (two) times daily., Disp: 180 tablet, Rfl: 3 ??? CARVEDILOL 3.125 MG tablet, TAKE 1 [...] artery disease) ??? COVID-19 vaccine administered 2020 [employer] ??? Disease of thyroid gland ??? Hypercholesterolemia [...] glass of wine ??? Drug use: No Family History Problem [...] PND. Gastrointestinal: Negative for heartburn, nausea, vomiting, abdominal pain, blood in stool and melena. Genitourinary: Negative for dysuria. Musculoskeletal: Negative for myalgias and new or worsening joint stiffness/pain. Skin: Negative for rash. Neurological: Negative for tingling/numbness and focal weakness. Endo/Heme/Allergies: Positive for easy bruising/bleeding. Negative for polydipsia. Psychiatric/Behavioral: Negative for depression and new or significant memory loss. Vitals: 02/07/22 0848 BP: 120/76 Pulse: 70 Weight: 118.8 kg (262 lb) Height: 6' (1.829 m) Body mass index is 35.53 kg/m??. Cardiac Exam Rate/Rhythm: Normal rate and [...] Normal gait. Comments: Diagnoses/Impression: 1. CAD in [place] artery 2. Dyslipidemia 3. Prediabetes 4. Mild aortic insufficiency Referring Provider: No ref. provider found PCP: PAUL CAIN MD documented in this encounter Plan of Treatment Upcoming Encounters Date Type Department Care Team (Late st Contact Info) Description 08/05/2024 10:00 AM CDT Office Visit [facility] Medical Group Family & Internal Medicine [facility] [address] [place] [phone] [place] [address] [place] [address] 02/15/2025 10:45 AM CENTERLESS GRINDER Office Visit [facility] [address] [place] [address] Dale Shahid MD [facility], [address] [place] [address] Scheduled Orders Name Type Priority Associated Diagnoses Orde r Schedule LIPID PANEL Lab Routine Dyslipidemia Expected: 04/09/2022 (Approximate), Expires: 02/07/2023 documented as of this encounter Visit Diagnoses Diagnosis CAD in [place] artery- Primary Coronary atherosclerosis of [place] coronary artery Dyslipidemia Other and unspecified hyperlipidemia Prediabetes Other abnormal glucose Mild aortic insufficiency Aortic valve disorders documented in this encounter Additional Health Concerns Assessment Noted Time PHQ-9 Depression Total Score: 0 12/14/19 21 9:36 AM CDT documented as of this encounter Care Teams Cosmetics Machine Operator Relationship Specialty Start Date End Date Paul Cain MD PCP - General INTERNAL MEDICINE 12/13/20 07/19/22 documented as of this encounter
--- OUTSIDE RECORDS SUMMARY | 2024-04-11 05:35 | XMS_ITS | Encounter Summary ---
Author Organization [facility] Address [address] [place] [address]. [place], [place] [address] [place] [address] Care Team Providers Care Automobile Carpets Molder Name Role Phone Paul Mejia MD Primary Care Provider U navailable Reason for Visit * Reason Onset Date Comments Medication 01/15/2022 Encounter Details Date Type Department Care Team (Late st Contact Info) Description 01/15/2022 Telephone [facility] Medical Group Family & Internal Medicine [facility] [id number] [place] [address] Paul Mejia MD Medication Social History Tobacco Use Types Packs/Day Years [...] CDT Gender Identity Male 06/12/2021 5:16 AM MARINE SERVICE MANAGER Sexual Orientation Straight 06/28/2021 10 :21 AM CDT COVID-19 Exposure Response Date Recorded In the last 10 days, have yo u been in contact with someone who was confirmed or suspected to have Coronavirus/COVID-19? No / Unsure 01/17/2022 7:41 AM CDT documented as of this encounter Progress Notes * Carleen Sullivan MA - 01/16/2022 1:03 PM CDT RX sent. * Carla Solo - 01/15/2022 11:14 AM CDT Patient is needing a refill of Atorvastatin [address] [facility] documented in this encounter Plan of Treatment Upcoming Encounters Date Type Department Care Team (Late st Contact Info) Description 08/05/2024 10:00 AM CDT Office Visit [facility] Medical Group Family & Internal Medicine - [place] [address] [place] [address] [place] [address] [place], [place] [phone] 02/15/2025 10:45 AM MARINE SERVICE MANAGER Office Visit [facility] [address] [place] [address] Dale Shahid MD [facility], [address] [place] [address] documented as of this encounter Visit Diagnoses Not on filedocumented in this encounter Additional Health Concerns Assessment Noted Time PHQ-9 Depression Total Score: 0 12/14/19 9:36 AM CDT documented as of this encounter Care Teams Automobile Carpets Molder Relationship Specialty Start Date End Date Paul Mejia MD PCP - General INTERNAL MEDICINE 12/13/20 07/19/22 documented as of this encounter
--- OUTSIDE RECORDS SUMMARY | 2024-04-11 05:36 | XMS_ITS | Encounter Summary ---
Author Organization [facility] Address [address] [place] [address]. [place], [place] [address] [place] [address] Care Team Providers Care Chargeback Specialist Name Role Phone José Schaffer MD Primary Care Provider Maty gallagher Encounter Details Date Type Department Care Team (Latest Contact Info) Description 08/30/2020 Scan HEALTH INFO SRVCS Scanned, Documents Social History Tobacco Use Types Packs/Day Years Used Date Smoking Tobacco: Never Smokeless Tobacco: Never Alcohol Use Standard Drinks/Week Comments Yes 0 (1 standard drink = 0.6 oz pur e alcohol) occasional 2-3 weeks PHQ-2 Answer Date Recorded PHQ-2 Score - If the patient scores above 3, please move on to questions 3-9 0 08/22/2020 Sex and Gender Information Value Date Recorded Sex Assigned at Not on file Legal Sex Male 7:33 PM CDT Gender Identity Male 06/12/2021 5:16 AM CABLE REPAIRER Sexual Orientation Straight 06/28/2021 10 :21 AM CDT COVID-19 Exposure Response Date Recorded In the last month, have you been in contact with someone who was confirmed or suspected to have Coronavirus / COVID-19? No / Unsure 08/22/2020 7:54 AM CDT documented as of this encounter Plan of Treatment Upcoming Encounters Date Type Department Care Team (Late st Contact Info) Description 08/05/2024 10:00 AM CDT Office Visit [facility] Medical Group Family & Internal Medicine [facility] [address] [place] [address] [place]w [place] [address] [place] [address] 02/15/2025 10:45 AM CABLE REPAIRER Office Visit [facility] [address] [place] [address] Dale Shahid MD [facility], [address] [place] [address] documented as of this encounter Visit Diagnoses Not on filedocumented in this encounter Care Teams Chargeback Specialist Relationship Specialty Start Date End Date José Schaffer MD PCP - General INTERNAL MEDICINE 04/20/19 12/12/20 documented as of this encounter
--- OUTSIDE RECORDS SUMMARY | 2024-04-11 05:36 | XMS_ITS | Encounter Summary ---
Author Organization [facility] Address [facility] [place] [address] [place] [address] Care Team Providers Care Edge Blacker Name Role Phone Paul Mejia MD Primary Care Provider U navailable Reason for Visit * Consultation/Treatment (Routine) - Closed Specialty Diagnoses / Procedures Referred By Contact Referred To Contact Cardiac Rehabilitation / [facility] Cardiopulmonary Rehab Diagnoses NSTEMI (non-ST elevated myocardial infarction) ([facility]) NSTEMI Procedures Cardiac Rehab Evaluation (Phase II) (ONLY ORDER IF MD) Dale Shahid MD [facility], [address] [place] [address] Phone: tel: fax: [facility] [address] [place] [address] Phone: tel:[phone] Referral ID Status Reason Start Date Expiration Date Visits Requested Visits Authorized [id number] Closed Cardiac Rehabilitation 10/26/2020 11/26/2021 36 36 Encounter Details Date Type Department Care Team (Late st Contact Info) Description 02/28/2021 1:20 PM ROLLER TURNER - 02/28/2021 11:59 PM ROLLER TURNER Hospital Encounter [facility] [address] [place] [address] Dale Shahid MD [facility], [address] [place] [address] Discharge Disposition: Home or Self Care [...] Gender Identity Male 06/12/2021 5:16 AM ROLLER TURNER Sexual Orientation Straight 06/28/2021 10 :21 AM CDT COVID-19 Exposure Response Date Recorded In the last month, have you been in contact with someone who was confirmed or suspected to have Coronavirus / COVID-19? No / Unsure 02/28/2021 1:20 PM ROLLER TURNER documented as of this encounter Medications at [...] Medical Group Family & Internal Medicine - [place] [address] [place] [address] [place] [address] [place] [address] 02/15/2025 10:45 AM ROLLER TURNER [facility] [address] [place] [address] Dale Shahid MD [facility], [address] [place] [address] documented as of this encounter Visit Diagnoses Not on filedocumented in this encounter Additional Health Concerns Assessment Noted Time PHQ-9 Depression Total Score: 0 12/14/19 21 9:36 AM CDT documented as of this encounter Care Teams Edge Blacker Relationship Specialty Start Date End Date Paul Mejia MD PCP - General INTERNAL MEDICINE 12/13/20 07/19/22 documented as of this encounter
--- OUTSIDE RECORDS SUMMARY | 2024-04-11 05:36 | XMS_ITS | Encounter Summary ---
Author Organization [facility] Address [address] [place] [address]. [place], [place] [address] [place] [address] Care Team Providers Care Cashier Greeter Name Role Phone Paul Mejia MD Primary Care Provider Javier spencer Encounter Details Date Type Department Care Team (Latest Contact Info) Description 02/07/2021 Travel Social History Tobacco Use Types Packs/Day [...] Gender Identity Male 06/12/2021 5:16 AM MEDICAL SALES ASSOCIATE Sexual Orientation Straight 06/28/2021 10 :21 AM CDT COVID-19 Exposure Response Date Recorded In the last month, have you been in contact with someone who was confirmed or suspected to have Coronavirus / COVID-19? No / Unsure 02/07/2021 9:47 AM CDT documented as of this encounter Plan of Treatment Upcoming Encounters Date Type Department Care Team (Late st Contact Info) Description 08/05/2024 10:00 AM CDT Office Visit [facility] Medical Group Family & Internal Medicine [facility] [address] [place] [phone] [place] [address] [place] [address] 02/15/2025 10:45 AM MEDICAL SALES ASSOCIATE Office Visit [facility] [address] [place] [address] Dale Shahid MD [facility], [address] [place] [address] documented as of this encounter Visit Diagnoses Not on filedocumented in this encounter Additional Health Concerns Assessment Noted Time PHQ-9 Depression Total Score: 0 12/14/19 9:36 AM CDT documented as of this encounter Care Teams Cashier Greeter Relationship Specialty Start Date End Date Paul Mejia MD PCP - General INTERNAL MEDICINE 12/13/20 07/19/22 documented as of this encounter
--- OUTSIDE RECORDS SUMMARY | 2024-04-11 05:36 | XMS_ITS | Encounter Summary ---
Author Organization [facility] Address [address] [place] [address]. [place], [place] [address] [place] [address] Care Team Providers Care Education Coordinator Name Role Phone José Schaffer MD Primary Care Provider Maty gallagher Encounter Details Date Type Department Care Team (Latest Contact Info) Description 11/01/2020 Travel Social History Tobacco Use Types Packs/Day [...] CDT Gender Identity Male 06/12/2021 5:16 AM EKG MANAGER Sexual Orientation Straight 06/28/2021 10 :21 AM CDT COVID-19 Exposure Response Date Recorded In the last month, have you been in contact with someone who was confirmed or suspected to have Coronavirus / COVID-19? No / Unsure 11/01/2020 8:31 AM CDT documented as of this encounter Plan of Treatment Upcoming Encounters Date Type Department Care Team (Late st Contact Info) Description 08/05/2024 10:00 AM CDT Office Visit [facility] Family & Internal Medicine [facility] [address] [place] [address] [place] [address] [place] [address] 02/15/2025 10:45 AM EKG MANAGER Office Visit [facility] [address] [place] [address] Dale Shahid MD [facility], [address] [place] [address] documented as of this encounter Visit Diagnoses Not on filedocumented in this encounter Care Teams Education Coordinator Relationship Specialty Start Date End Date José Schaffer MD PCP - General INTERNAL MEDICINE 04/20/19 12/12/20 documented as of this encounter
--- OUTSIDE RECORDS SUMMARY | 2024-04-11 05:36 | XMS_ITS | Encounter Summary ---
Author Organization [facility] Address [address] [place] [address]. [place], [place] [address] [place] [address] Care Team Providers Care Pet Care Technician Name Role Phone José Schaffer MD Primary Care Provider Unava ilable Reason for Visit * Reason Comments Sleep Study (SCAN) Encounter Details Date Type Department Care Team ([facility] Contact Info) Description 08/19/2020 Scan HEALTH INFO SRVCS Scanned, Documents Sleep Study (SCAN) Social History Tobacco Use Types Packs/Day Years [...] CDT Gender Identity Male 06/12/2021 5:16 AM BOATSWAINS MATE Sexual Orientation Straight 06/28/2021 10 :21 AM CDT COVID-19 Exposure Response Date Recorded In the last month, have you been in contact with someone who was confirmed or suspected to have Coronavirus / COVID-19? No / Unsure 08/22/2020 7:54 AM CDT documented as of this encounter Plan of Treatment Upcoming Encounters Date Type Department Care Team ([facility] Contact Info) Description 08/05/2024 10:00 AM CDT Office Visit [facility] Medical [facility] Family & Internal Medicine [address] [address] [place] [address] [place] [address] 02/15/2025 10:45 AM BOATSWAINS MATE Office Visit [facility] [address] [place] [address] Dale Shahid MD [facility], [address] [place] [address] documented as of this encounter Procedures Procedure Name Priority Date/Time Associated Diagnosis Comments SLEEP STUDY GENERIC (SCAN ORDER) 08/19/2020 documented in this encounter Results * SLEEP STUDY GENERIC (08/19/2020) 08/19/2020 Narrative 08/19/2020 Ordered by an unspecified provider. us Documents Scanned SCANNING Final Result documented in this encounter Visit Diagnoses Not on filedocumented in this encounter Care Teams Pet Care Technician Relationship Specialty Start Date End Date José Schaffer MD PCP - General INTERNAL MEDICINE 04/20/19 12/12/20 documented as of this encounter
--- OUTSIDE RECORDS SUMMARY | 2024-04-11 05:36 | XMS_ITS | Encounter Summary ---
Author Organization [facility] Address [address] [place] [address]. [place], [place] [address] [place] [address] Care Team Providers Care Group Therapist Name Role Phone José Schaffer MD Primary Care Provider Maty gallagher Encounter Details Date Type Department Care Team (Latest Contact Info) Description 10/26/2020 Travel Social History Tobacco Use Types Packs/Day [...] CDT Gender Identity Male 06/12/2021 5:16 AM CIRCULAR HEAD SAW OPERATOR Sexual Orientation Straight 06/28/2021 10 :21 AM CDT COVID-19 Exposure Response Date Recorded In the last month, have you been in contact with someone who was confirmed or suspected to have Coronavirus / COVID-19? No / Unsure 10/26/2020 10:13 AM CDT documented as of this encounter Plan of Treatment Upcoming Encounters Date Type Department Care Team (Late st Contact Info) Description 08/05/2024 10:00 AM CDT Office Visit [facility] Medical Group Family & Internal Medicine [facility] [address] [place] [address] [place] [address] [place] [address] 02/15/2025 10:45 AM CIRCULAR HEAD SAW OPERATOR Office Visit [facility] [address] [place] [address] Dale Shahid MD [facility], [address] [place] [address] documented as of this encounter Visit Diagnoses Not on filedocumented in this encounter Care Teams Group Therapist Relationship Specialty Start Date End Date José Schaffer MD PCP - General INTERNAL MEDICINE 04/20/19 12/12/20 documented as of this encounter
--- OUTSIDE RECORDS SUMMARY | 2024-04-11 05:36 | XMS_ITS | Encounter Summary ---
Author Organization [facility] Address [address] [place] [address]. [place], [place] [address] [place] [address] Care Team Providers Care Critical Care Specialist Name Role Phone Paul Mejia MD Primary Care Provider Javier spencer Encounter Details Date Type Department Care Team (Latest Contact Info) Description 02/14/2021 Travel Social History Tobacco Use Types Packs/Day [...] CDT Gender Identity Male 06/12/2021 5:16 AM FAMILY SOCIOLOGIST Sexual Orientation Straight 06/28/2021 10 :21 AM CDT COVID-19 Exposure Response Date Recorded In the last month, have you been in contact with someone who was confirmed or suspected to have Coronavirus / COVID-19? No / Unsure 02/14/2021 1:27 PM CDT documented as of this encounter Plan of Treatment Upcoming Encounters Date Type Department Care Team (Late st Contact Info) Description 08/05/2024 10:00 AM CDT Office Visit [facility] Medical [facility] Family & Internal Medicine [facility] [address] [place] [address] [place] [address] [place] [address] 02/15/2025 10:45 AM FAMILY SOCIOLOGIST Office Visit [facility] [address] [place] [address] Dale Shahid MD [facility], [address] [place] [address] documented as of this encounter Visit Diagnoses Not on filedocumented in this encounter Additional Health Concerns Assessment Noted Time PHQ-9 Depression Total Score: 0 12/14/19 9:36 AM CDT documented as of this encounter Care Teams Critical Care Specialist Relationship Specialty Start Date End Date Paul Mejia MD PCP - General INTERNAL MEDICINE 12/13/20 07/19/22 documented as of this encounter
--- OUTSIDE RECORDS SUMMARY | 2024-04-11 05:36 | XMS_ITS | Encounter Summary ---
Author Organization [facility] Address [address] [place] [address]. [place], [place] [address] [place] [address] Care Team Providers Care Horse Stud Manager Name Role Phone Paul Mejia MD Primary Care Provider Javier spencer Encounter Details Date Type Department Care Team (Latest Contact Info) Description 01/03/2021 Travel Social History Tobacco Use Types Packs/Day [...] CDT Gender Identity Male 06/12/2021 5:16 AM PERINATAL TECH Sexual Orientation Straight 06/28/2021 10 :21 AM CDT COVID-19 Exposure Response Date Recorded In the last month, have you been in contact with someone who was confirmed or suspected to have Coronavirus / COVID-19? No / Unsure 01/03/2021 12:59 PM CDT documented as of this encounter Plan of Treatment Upcoming Encounters Date Type Department Care Team (Late st Contact Info) Description 08/05/2024 10:00 AM CDT Office Visit [facility] Family & Internal Medicine [facility] [address] [place] [address] [place] [address] [place] [address] 02/15/2025 10:45 AM PERINATAL TECH Office Visit [facility] [address] [place] [address] Dale Shahid MD [facility], [address] [place] [address] documented as of this encounter Visit Diagnoses Not on filedocumented in this encounter Additional Health Concerns Assessment Noted Time PHQ-9 Depression Total Score: 0 12/14/19 9:36 AM CDT documented as of this encounter Care Teams Horse Stud Manager Relationship Specialty Start Date End Date Paul Mejia MD PCP - General INTERNAL MEDICINE 12/13/20 07/19/22 documented as of this encounter
--- OUTSIDE RECORDS SUMMARY | 2024-04-11 05:36 | XMS_ITS | Encounter Summary ---
Author Organization [facility] Address [address] [place] [address]. [place], [place] [address] [place] [address] Care Team Providers Care Salad Counter Attendant Name Role Phone José Schaffer MD Primary Care Provider Maty gallagher Encounter Details Date Type Department Care Team (Latest Contact Info) Description 12/12/2020 Travel Social History Tobacco Use Types Packs/Day [...] CDT Gender Identity Male 06/12/2021 5:16 AM MORTGAGE MANAGER Sexual Orientation Straight 06/28/2021 10 :21 AM CDT COVID-19 Exposure Response Date Recorded In the last month, have you been in contact with someone who was confirmed or suspected to have Coronavirus / COVID-19? No / Unsure 12/12/2020 7:48 PM CDT documented as of this encounter Plan of Treatment Upcoming Encounters Date Type Department Care Team (Late st Contact Info) Description 08/05/2024 10:00 AM CDT Office Visit [facility] Family & Internal Medicine [facility] [address] [place] [address] [place] [address] [place] [address] 02/15/2025 10:45 AM MORTGAGE MANAGER Office Visit [facility] [address] [place] [address] Dale Shahid MD [facility], [address] [place] [address] documented as of this encounter Visit Diagnoses Not on filedocumented in this encounter Care Teams Salad Counter Attendant Relationship Specialty Start Date End Date José Schaffer MD PCP - General INTERNAL MEDICINE 04/20/19 12/12/20 documented as of this encounter
--- OUTSIDE RECORDS SUMMARY | 2024-04-11 05:36 | XMS_ITS | Encounter Summary ---
Author Organization [facility] Address [address] [place] [address]. [place] [address] [place] [address] Care Team Providers Care Bale Tie Machine Operator Name Role Phone José Schaffer MD Primary Care Provider Unajam ilable Encounter Details Date Type Department Care Team (Late st Contact Info) Description 11/01/2020 Orders Only [facility] [address] [place], [place] [id number] Dale Shahid MD [facility], [address] [place] [address] Social History Tobacco Use Types [...] Gender Identity Male 06/12/2021 5:16 AM ORACLE DRM CONSULTANT Sexual Orientation Straight 06/28/2021 10 :21 [...] 08/05/2024 10:00 AM CDT Office Visit [facility] Medical Group Family & Internal Medicine [place] [address] [place] [address] [place] [address] [place] [address] 02/15/2025 10:45 AM ORACLE DRM CONSULTANT Office Visit [facility] [address] [place] [address] Dale Shahid MD [facility], [address] [place] [address] documented as of this encounter Results * (ABNORMAL) COMPREHENSIVE METABOLIC PANEL (11/01/2020 8:40 AM CDT) [facility] GLUCOSE 100(H) 70 - 99 MG/DL 11/01/2020 9:00 AM CDT [facility] BUN 21(H) 7 - 18 MG/DL 11/01/2020 9:00 AM CDT [facility] CREATININE S/P/B 1.43(H) 0.7 - 1.3 MG/DL 11/01/2020 9:00 AM CDT [facility] SODIUM S/P/B 144 136 - 145 MMOL/L 11/01/2020 9:00 AM CDT [facility] POTASSIUM S/P/B 4.9 3.5 - 5.1 MMOL/L 11/01/2020 9:00 AM T [facility] CHLORIDE S/P/B 108 100 - 108 MMOL/L 11/01/2020 9:00 AM CDT [facility] CO2 29.0 21 - 32 MMOL/L 11/01/2020 9:00 AM T [facility] CALCIUM S/P/B 9.5 8.5 - 10.1 MG/DL 11/01/2020 9:00 AM [facility] BILIRUBIN TOTAL S/P/B 1.1 0.2 - 1.2 MG/DL 11/01/2020 9:00 AM [facility] TOTAL PROTEIN S/P/B 7.2 6.4 - 8.2 G/DL 11/01/2020 9:00 AM [facility] ALBUMIN S/P/B 3.9 3.4 - 5.0 G/DL 11/01/2020 9:00 AM [facility] AST 17 15 - 37 U/L 11/01/2020 9:00 AM [facility] ALT 29 16 - 60 U/L 11/01/2020 9:00 AM [facility] ALKALINE PHOSPHATASE S/P/B 75 50 - 136 U/L 11/01/2020 9:00 AM [facility] ANION GAP 7.0 5 - 15 MMOL/L 11/01/2020 9:00 AM [facility] BUN CREATININE RATIO 14.7 6 - 26 11/01/2020 9:00 AM [facility] A/G RATIO 1.2 1.0 - 2.0 RATIO 11/01/2020 9:00 AM [facility] EGFR NON-AFR. AMER. 51(L) >90 ML/MIN/1.7 3 M2 11/01/2020 9:00 AM [facility] EGFR AFR. AMER. 59(L) >90 ML/MIN/1.7 3 M2 11/01/2020 9:00 AM [facility] Comment: NOTE: eGFR is not calculated for patients <18 years of age. This is an estimated GFR (CKD EPI) and should not be used for calculating drug doses. 11/01/2020 8:40 AM CDT us Dale Shahid MD LABORATORY Final Res ult [facility] [address] [place] [address], * LIPID PANEL (11/01/2020 8:40 AM CDT) CHOLESTEROL 128 <200.0 MG/DL 11/01/2020 9:00 AM CDT [facility] TRIGLYCERIDES 104 <150 MG/DL 11/01/2020 9:00 AM CDT [facility] HDL 41 >40.0 MG/DL 11/01/2020 9:00 AM T [facility] LDL (CALCULATED) 66 <100 MG/DL 11/02/19 9:00 AM CDT [facility] NON HDL CHOLESTEROL 87 <130 MG/DL 11/01 9:00 AM T [facility] CHOL/HDL RATIO 3.1 0.0 - 4.5 11/01/2020 9:00 AM T [facility] VLDL CALCULATION 21 5 - 55 MG/DL 11/01/2020 9:00 AM T [facility] LIPID INTERPRETATION 11/01/2020 9:00 AM T [facility] Comment: NIH CONCENSUS REPORT RECOMMENDATIONS: ?ADULT ?CHILD ??LOW RISK: ?CHOLESTEROL ? <200 ? <170 ?TRIGLYCERIDE ?<150 ?--- ?HDL ? >=60 ?--- ?LDL ? <100 ? <110 ??BORDERLINE: ?CHOLESTEROL ? 200-239 ?? 170-199 ?TRIGLYCERIDE ?150-199 ? --- ?HDL ?40-59 ?--- ?LDL ? 100-159 ?? 110-129 ??HIGH RISK: ?CHOLESTEROL ? >=240 ?>=200 ?TRIGLYCERIDE ?>=200 ? --- ?HDL ?<40 ?--- ?LDL ? >=160 ?>=130 11/01/2020 8:40 AM CDT us Dale Shahid MD LABORATORY Final Res ult [facility] [address] [place] [address], [place] [phone] documented in this encounter Visit Diagnoses Diagnosis CAD in [place] artery- Primary Coronary atherosclerosis of [place] coronary artery Dyslipidemia Other and unspecified hyperlipidemia NSTEMI (non-ST elevated myocardial infarction) (CMS/HCC HHS/HCC) Acute myocardial infarction, subendocardial infarction, episode of care unspecified documented in this encounter Care Teams Bale Tie Machine Operator Relationship Specialty Start Date End Date José Schaffer MD PCP - General INTERNAL MEDICINE 04/20/19 12/12/20 documented as of this encounter
--- OUTSIDE RECORDS SUMMARY | 2024-04-11 05:36 | XMS_ITS | Encounter Summary ---
Author Organization [facility] Address [address] [place] [address]. [place], [place] [address] [place] [address] Care Team Providers Care Fire Technology Instructor Name Role Phone José Schaffer MD Primary Care Provider Maty gallagher Encounter Details Date Type Department Care Team (Latest Contact Info) Description 11/17/2020 Travel Social History Tobacco Use Types Packs/Day [...] CDT Gender Identity Male 06/12/2021 5:16 AM CLAIMS ADJUDICATOR Sexual Orientation Straight 06/28/2021 10 :21 AM CDT COVID-19 Exposure Response Date Recorded In the last month, have you been in contact with someone who was confirmed or suspected to have Coronavirus / COVID-19? No / Unsure 11/17/2020 8:00 AM CDT documented as of this encounter Plan of Treatment Upcoming Encounters Date Type Department Care Team (Late st Contact Info) Description 08/05/2024 10:00 AM CDT Office Visit [facility] Family & Internal Medicine [facility] [address] [place] [address] [place] [address] [place] [address] 02/15/2025 10:45 AM CLAIMS ADJUDICATOR Office Visit [facility] [address] [place] [address] Dale Shahid MD [facility], [address] [place] [address] documented as of this encounter Visit Diagnoses Not on filedocumented in this encounter Care Teams Fire Technology Instructor Relationship Specialty Start Date End Date José Schaffer MD PCP - General INTERNAL MEDICINE 04/20/19 12/12/20 documented as of this encounter
--- OUTSIDE RECORDS SUMMARY | 2024-04-11 05:36 | XMS_ITS | Encounter Summary ---
Author Organization [facility] Address [address] [place] [address]. [place], [place] [address] [place] [address] Care Team Providers Care Grief Counsellor Name Role Phone José Schaffer MD Primary Care Provider Maty gallagher Encounter Details Date Type Department Care Team (Latest Contact Info) Description 08/22/2020 Travel Social History Tobacco Use Types Packs/Day [...] CDT Gender Identity Male 06/12/2021 5:16 AM WHARF TENDER HELPER Sexual Orientation Straight 06/28/2021 10 :21 AM [...] [facility] [address] [place] [address] [place] [address] [place] [address] 02/15/2025 10:45 AM WHARF TENDER HELPER Office Visit [facility] [address] [place] [address] Dale Shahid MD [facility], [address] [place] [address] documented as of this encounter Visit Diagnoses Not on filedocumented in this encounter Care Teams Grief Counsellor Relationship Specialty Start Date End Date José Schaffer MD PCP - General INTERNAL MEDICINE 04/20/19 12/12/20 documented as of this encounter
--- OUTSIDE RECORDS SUMMARY | 2024-04-11 05:36 | XMS_ITS | Encounter Summary ---
Author Organization [facility] Address [address] [place] [address]. [place], [place] [address] [place] [address] Care Team Providers Care Fare Enforcement Officer Name Role Phone José Schaffer MD Primary Care Provider Unava ilable Reason for Visit * Reason Comments Lab (SCAN) Encounter Details Date Type Department Care Team (Latest Contact Info) Description 08/01/2020 Scan [facility] INFO SRVCS Scanned, Documents Lab (SCAN) Social History Tobacco Use Types Packs/Day [...] CDT Gender Identity Male 06/12/2021 5:16 AM TELEPHONE TRIAGE NURSE Sexual Orientation Straight 06/28/2021 10 :21 AM [...] HOSPITAL [facility] Family & Internal Medicine [address] [address] [place] [address] [place] [address] 02/15/2025 10:45 AM TELEPHONE TRIAGE NURSE Office Visit [facility] [address] [place] [address] Dale Shahid MD [facility], [address] [place] [address] documented as of this encounter Procedures Procedure Name Priority Date/Time Associated Diagnosis Comments OUTSIDE LAB (SCAN ORDER) 08/01/2020 OUTSIDE LAB (SCAN ORDER) 08/01/2020 OUTSIDE LAB (SCAN ORDER) 08/01/2020 OUTSIDE LAB (SCAN ORDER) 08/01/2020 OUTSIDE LAB (SCAN ORDER) 08/01/2020 OUTSIDE LAB (SCAN ORDER) 08/01/2020 OUTSIDE LAB (SCAN ORDER) 08/01/2020 OUTSIDE LAB (SCAN ORDER) 08/01/2020 OUTSIDE LAB (SCAN ORDER) 08/01/2020 OUTSIDE LAB (SCAN ORDER) 08/01/2020 OUTSIDE LAB (SCAN ORDER) 08/01/2020 documented in this encounter Results * OUTSIDE LAB (SCAN) (08/01/2020) 08/01/2020 Narrative 08/01/2020 Ordered by an unspecified provider. us Documents Scanned SCANNING Final Result * OUTSIDE LAB (SCAN) (08/01/2020) 08/01/2020 Narrative 08/01/2020 Ordered by an unspecified provider. us Documents Scanned SCANNING Final Result * OUTSIDE LAB (SCAN) (08/01/2020) 08/01/2020 Narrative 08/01/2020 Ordered by an unspecified provider. us Documents Scanned SCANNING Final Result * OUTSIDE LAB (SCAN) (08/01/2020) 08/01/2020 Narrative 08/01/2020 Ordered by an unspecified provider. us Documents Scanned SCANNING Final Result * OUTSIDE LAB (SCAN) (08/01/2020) 08/01/2020 Narrative 08/01/2020 Ordered by an unspecified provider. us Documents Scanned SCANNING Final Result * OUTSIDE LAB (SCAN) (08/01/2020) 08/01/2020 Narrative 08/01/2020 Ordered by an unspecified provider. us Documents Scanned SCANNING Final Result * OUTSIDE LAB (SCAN) (08/01/2020) 08/01/2020 Narrative 08/01/2020 Ordered by an unspecified provider. us Documents Scanned SCANNING Final Result * OUTSIDE LAB (SCAN) (08/01/2020) 08/01/2020 Narrative 08/01/2020 Ordered by an unspecified provider. us Documents Scanned SCANNING Final Result * OUTSIDE LAB (SCAN) (08/01/2020) 08/01/2020 Narrative 08/01/2020 Ordered by an unspecified provider. us Documents Scanned SCANNING Final Result * OUTSIDE LAB (SCAN) (08/01/2020) 08/01/2020 Narrative 08/01/2020 Ordered by an unspecified provider. us Documents Scanned SCANNING Final Result * OUTSIDE LAB (SCAN) (08/01/2020) 08/01/2020 Narrative 08/01/2020 Ordered by an unspecified provider. us Documents Scanned SCANNING Final Result documented in this encounter Visit Diagnoses Not on filedocumented in this encounter Care Teams Fare Enforcement Officer Relationship Specialty Start Date End Date José Schaffer MD PCP - General INTERNAL MEDICINE 04/20/19 12/12/20 documented as of this encounter
--- OUTSIDE RECORDS SUMMARY | 2024-04-11 05:36 | XMS_ITS | Encounter Summary ---
Author Organization [facility] Address [address] [place] [address]. [place], [place] [address] [place] [address] Care Team Providers Care Radiator Mechanic Name Role Phone Paul Mejia MD Primary Care Provider Javier spencer Encounter Details Date Type Department Care Team (Latest Contact Info) Description 02/28/2021 Travel Social History Tobacco Use Types Packs/Day [...] CDT Gender Identity Male 06/12/2021 5:16 AM ENRICHMENT TEACHER Sexual Orientation Straight 06/28/2021 10 :21 AM CDT COVID-19 Exposure Response Date Recorded In the last month, have you been in contact with someone who was confirmed or suspected to have Coronavirus / COVID-19? No / Unsure 02/28/2021 1:20 PM ENRICHMENT TEACHER documented as of this encounter Plan of Treatment Upcoming Encounters Date Type Department Care Team (Late st Contact Info) Description 08/05/2024 10:00 AM CDT Office Visit [facility] Family & Internal Medicine [facility] [address] [place] [address] [place] [address] [place] [address] 02/15/2025 10:45 AM ENRICHMENT TEACHER Office Visit [facility] [address] [place] [address] Dale Shahid MD [facility], [address] [place] [address] documented as of this encounter Visit Diagnoses Not on filedocumented in this encounter Additional Health Concerns Assessment Noted Time PHQ-9 Depression Total Score: 0 12/14/19 9:36 AM CDT documented as of this encounter Care Teams Radiator Mechanic Relationship Specialty Start Date End Date Paul Mejia MD PCP - General INTERNAL MEDICINE 12/13/20 07/19/22 documented as of this encounter
--- OUTSIDE RECORDS SUMMARY | 2024-04-11 05:36 | XMS_ITS | Encounter Summary ---
Author Organization [facility] Address [address] [place] [address]. [place] [address] [place] [address] Care Team Providers Care Risk Adjustment Specialist Name Role Phone José Schaffer MD Primary Care Provider Maty gallagher Encounter Details Date Type Department Care Team (Late st Contact Info) Description 10/14/[address] [address] Scanned, Documents Social History Tobacco Use Types [...] CDT Gender Identity Male 06/12/2021 5:16 AM LITHOGRAPHIC PRESS OPERATOR APPRENTICE Sexual Orientation Straight 06/28/2021 10 :21 AM [...] CENTER Medical Group Family & Internal Medicine [facility] [id number] [place] [address] [place] [address] [place], [place] [id number] 02/15/2025 10:45 AM LITHOGRAPHIC PRESS OPERATOR APPRENTICE Office Visit [facility] [address] [place], [place] [phone] Dale Shahid MD [facility], [address] [place] [address] documented as of this encounter Procedures Procedure Name Priority Date/Time Associated Diagnosis Comments PRESSURIZER Routine 10/14/2020 documented in this encounter Results * CARDIAC CATH REPORT (10/14/2020) Anatomical Region Laterality Modality Other us Documents Scanned SCANNING Final Result documented in this encounter Visit Diagnoses Not on filedocumented in this encounter Care Teams Risk Adjustment Specialist Relationship Specialty Start Date End Date José Schaffer MD PCP - General INTERNAL MEDICINE 04/20/19 12/12/20 documented as of this encounter
--- OUTSIDE RECORDS SUMMARY | 2024-04-11 05:36 | XMS_ITS | Encounter Summary ---
Author Organization [facility] Address [address] [place] [address]. [place], [place] [address] [place] [address] Care Team Providers Care Field Rep Name Role Phone Paul Cain MD Primary Care Provider U bashirailable Reason for Visit * Reason Comments Coronary Artery Disease Lipids Encounter Details Date Type Department Care Team (Late st Contact Info) Description 01/04/2021 9:30 AM CDT Office Visit [facility] [address] [facility] [address] [place] [address] Dale Shahid MD [facility], [address] [place] [address] Coronary Artery Disease; Lipids Social History Tobacco Use Types Packs/Day [...] CDT Gender Identity Male 06/12/2021 5:16 AM TRACTOR TRAILER MECHANIC Sexual Orientation Straight 06/28/2021 10 :21 AM CDT COVID-19 Exposure Response Date Recorded In the last month, have you been in contact with someone who was confirmed or suspected to have Coronavirus / COVID-19? No / Unsure 01/03/2021 12:59 PM CDT documented as of this encounter Last Filed Vital Signs Vital Sign Reading Time Taken Comments Blood Pressure 110/70 01/04/2021 9:12 AM CDT Pulse 70 01/04/2021 9:12 AM CDT Temperature - - Respiratory Rate - - Oxygen Saturation - - Inhaled Oxygen Concentration - - Weight 119.7 kg (264 lb) 01/04/2021 9:12 AM CDT Height 182.9 cm (6') 01/04/2021 9:12 AM CDT Body Mass Index 35.8 01/04/2021 9:12 AM CDT documented in this encounter Progress Notes * Dale Shahid MD - 01/04/2021 9:30 AM CDT Reason for Visit: Coronary Artery Disease and Lipids History of Present Illness: Mr. Zhang is a 65 year old male with a PMH significant for CAD with NSTEMI (coronary angiography 10/14/20 with 99% mid circumflex disease s/p 3.5x38 mm Resoluted TAWANNA, 40% mid LAD disease, normal leftmain and RCA), dyslipidemia (over 20 years), mild aortic insufficiency, obesity class II, CORIN on CPAP machine, hypothyroidism and nephrolithiasis who presents for a follow up visit. He feels fine. No chest pain or discomfort, dyspnea on exertion. 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 He and [place] have [place] going [place] usually about 3-5 times/week. He checks his BP at home, hardly every above 120/80. Recommendations and Plan: 1. CAD with NSTEMI: S/p TAWANNA to the mid circumflex, has known 40% mid LAD disease. Continue aspirin 81mg and ticagrelor 90mg bid for at least 12 months due to acute coronary syndrome then stop ticagrelor and continue aspirin lifelong. On atorvastatin 80mg qhs. Repeat lipid panel 11/01/20 with LDL 66 mg/dL which is at goal <70 mg/dL. Echo 11/18/20 with normal LV systolic function 60-65%, mild aortic regurgitation, indeterminate diastolic function. Continue valsartan 40mg qd and carvedilol 3.125mgbid. Continue his physical activity and dietary changes. Referral for cardiac rehab and he is due to see them soon. ?? 2. Dyslipidemia: LDL 110 in July 2020, down to 84 in August after they resumed exercise. Lipid panel 11/01/20 with LDL 66 mg/dL which is at goal LDL <70mg/dL. Continue high intensity atorvastatin 80mg qhs. 3. Mild aortic insufficiency: Well controlled BP, follow up echo in 3-5 years. Follow up in 6 months. Medications: Current Outpatient Medications: ??? ASPIRIN EC 81 MG tablet, Take 81 mg by mouth daily., Disp: , Rfl: ??? atorvastatin 80 MG tablet, Take 80 mg by mouth nightly at bedtime., Disp: , Rfl: ??? BRILINTA 90 MG tablet, Take 90 mg by mouth 2 (two) times daily., Disp: , Rfl: ??? carvedilol 3.125 MG tablet, Take 3.125 mg by mouth 2 (two) times daily., Disp: , Rfl: ??? levothyroxine 125 MCG tablet, Take 1 [...] (40 mg total) by mouth daily., Disp: , Rfl: ??? vitamin D3, cholecalciferol, 75 MCG (3000 UT) Tab tablet, Take 3,000 Units by mouth daily., Disp: , Rfl: No Known Allergies Past Medical History: Diagnosis Date ??? CAD (coronary artery disease) ??? COVID-19 vaccine administered 2020 [employer] ??? Disease of thyroid gland ??? Hypercholesterolemia ??? Influenza vaccine refused 12/13/2020 ??? Kidney stones Past Surgical History: Procedure Laterality Date ??? CARDIAC STENTS 10/14/2020 ??? LITHOTRIPSY Social History Tobacco Use ??? Smoking status: Never Smoker ??? Smokeless tobacco: Never Used Substance Use Topics ??? Alcohol use: Yes [...] Genitourinary: Negative for dysuria. Musculoskeletal: Positive for myalgias. Negative for new or worsening joint stiffness/pain. Skin: Negative for rash. Neurological: Negative for tingling/numbness and focal weakness. Endo/Heme/Allergies: Positive for easy bruising/bleeding. Negative for polydipsia. Psychiatric/Behavioral: Negative for depression and new or significant memory loss. Vitals: 01/04/21 0912 BP: 110/70 Pulse: 70 Weight: 119.7 kg (264 lb) Height: 6' (1.829 m) Body mass index is 35.8 kg/m??. Cardiac Exam Rate/Rhythm: Normal rate and [...] distress. Healthy Appearance. HENT: Oropharynx clear. Eyes: Pupils equal, round, and reactive to light. Conjunctivae normal. Neck: Neck supple. No JVD. Abdomen: Abdomen soft. Bowel sounds normal. No tenderness. No mass. Pulmonary: Effort normal. Breath sounds normal. No wheezes. Skin: Warm. No rash. No cyanosis. No clubbing. No xanthoma. Musculoskeletal: No kyphosis. Normal ROM. Neurological: Alert. Oriented x 3. Appropriate mood and affect. Normal motor skills. Normal gait. Comments: Diagnoses/Impression: 1. CAD in [place] artery 2. Dyslipidemia 3. Mild aortic insufficiency Referring Provider: No ref. provider found PCP: PAUL CAIN MD documented in this encounter Plan of Treatment Upcoming Encounters Date Type Department Care Team (Late st Contact Info) Description 08/05/2024 10:00 AM CDT Office Visit [facility] Family & Internal Medicine [facility] [address] [place] [address] [place] [address] [place], [place] [phone] 02/15/2025 10:45 AM TRACTOR TRAILER MECHANIC Office Visit [facility] [address] [place] [address] Dale Shahid MD [facility], [address] [place] [address] documented as of this encounter Visit Diagnoses Diagnosis CAD in [place] artery- Primary Coronary atherosclerosis of [place] coronary artery Dyslipidemia Other and unspecified hyperlipidemia Mild aortic insufficiency Aortic valve disorders documented in this encounter Additional Health Concerns Assessment Noted Time PHQ-9 Depression Total Score: 0 12/14/19 21 9:36 AM CDT documented as of this encounter Care Teams Field Rep Relationship Specialty Start Date End Date Paul Cain MD PCP - General INTERNAL MEDICINE 12/13/20 07/19/22 documented as of this encounter
--- OUTSIDE RECORDS SUMMARY | 2024-04-11 05:36 | XMS_ITS | Encounter Summary ---
Author Organization [facility] Address [address] [place] [address]. [place], [place] [address] [place] [address] Care Team Providers Care Water System Operator Name Role Phone José Schaffer MD Primary Care Provider Maty gallagher Encounter Details Date Type Department Care Team (Latest Contact Info) Description 10/24/2020 Travel Social History Tobacco Use Types Packs/Day [...] Gender Identity Male 06/12/2021 5:16 AM SENIOR SOFTWARE QUALITY ANALYST Sexual Orientation Straight 06/28/2021 10 :21 AM CDT COVID-19 Exposure Response Date Recorded In the last month, have you been in contact with someone who was confirmed or suspected to have Coronavirus / COVID-19? No / Unsure 10/24/2020 12:32 PM CDT documented as of this encounter Plan of Treatment Upcoming Encounters Date Type Department Care Team (Late st Contact Info) Description 08/05/2024 10:00 AM CDT Office Visit [facility] Medical Group Family & Internal Medicine [facility] [address] [place] [address] [place] [address] [place] [address] 02/15/2025 10:45 AM SENIOR SOFTWARE QUALITY ANALYST Office Visit [facility] [address] [place] [address] Dale Shahid MD [facility], [address] [place] [address] documented as of this encounter Visit Diagnoses Not on filedocumented in this encounter Care Teams Water System Operator Relationship Specialty Start Date End Date José Schaffer MD PCP - General INTERNAL MEDICINE 04/20/19 12/12/20 documented as of this encounter
--- OUTSIDE RECORDS SUMMARY | 2024-04-11 05:36 | XMS_ITS | Encounter Summary ---
Author Organization [facility] Address [address] [place] [address]. [place], [place] [address] [place] [address] Care Team Providers Care Swatch Paster Name Role Phone José Schaffer MD Primary Care Provider Maty ilshannan Encounter Details Date Type Department Care Team (Latest Contact Info) Description 02/14/2020 Travel Social History Tobacco Use Types Packs/Day Years Used Date Smoking Tobacco: Never Smokeless Tobacco: Never Alcohol Use Standard Drinks/Week Comments Yes 0 (1 standard drink = 0.6 oz pur e alcohol) occasional 2-3 weeks Sex and Gender Information Value Date Recorded Sex Assigned at Not on file Legal Sex Male 7:33 PM CDT Gender Identity Male 06/12/2021 5:16 AM QUICK MIXER OPERATOR Sexual Orientation Straight 06/28/2021 10 :21 AM CDT COVID-19 Exposure Response Date Recorded In the last month, have you been in contact with someone who was confirmed or suspected to have Coronavirus / COVID-19? No / Unsure 02/14/2020 2:27 AM QUICK MIXER OPERATOR documented as of this encounter Plan of Treatment Upcoming Encounters Date Type Department Care Team (Late st Contact Info) Description 08/05/2024 10:00 AM CDT Office Visit [facility] Medical Group Family & Internal Medicine [facility] [address] [place] [address] [place] [address] [place] [address] 02/15/2025 10:45 AM QUICK MIXER OPERATOR Office Visit [facility] [address] [place] [address] Dale Shahid MD [facility], [address] [place] [address] documented as of this encounter Visit Diagnoses Not on filedocumented in this encounter Care Teams Swatch Paster Relationship Specialty Start Date End Date José Schaffer MD PCP - General INTERNAL MEDICINE 04/20/19 12/12/20 documented as of this encounter
--- OUTSIDE RECORDS SUMMARY | 2024-04-11 05:36 | XMS_ITS | Encounter Summary ---
Author Organization [facility] Address [facility] [place] [address] [place] [address] Care Team Providers Care Staffing Analyst Name Role Phone Paul Mejia MD Primary Care Provider U navailable Reason for Visit * Consultation/Treatment (Routine) - Closed Specialty Diagnoses / Procedures Referred By Contact Referred To Contact Cardiac Rehabilitation / [facility] Cardiopulmonary Rehab Diagnoses NSTEMI (non-ST elevated myocardial infarction) ([facility]) NSTEMI Procedures Cardiac Rehab Evaluation (Phase II) (ONLY ORDER IF MD) Dale Shahid MD [facility], [address] [place] [address] Phone: tel: fax: [facility] [address] [place] [address] Phone: tel:[phone] Referral ID Status Reason Start Date Expiration Date Visits Requested Visits Authorized [id number] Closed Cardiac Rehabilitation 10/26/2020 11/26/2021 36 36 Encounter Details Date Type Department Care Team (Late st Contact Info) Description 02/14/2021 1:27 PM CDT - 02/14/2021 11:59 PM CDT Hospital Encounter [facility] [address] [place] [address] Dale Shahid MD [facility], [address] [place] [address] Discharge Disposition: Home or Self Care [...] CDT Gender Identity Male 06/12/2021 5:16 AM COMPENSATION BUSINESS PARTNER Sexual Orientation Straight 06/28/2021 10 :21 AM CDT COVID-19 Exposure Response Date Recorded In the last month, have you been in contact with someone who was confirmed or suspected to have Coronavirus / COVID-19? No / Unsure 02/14/2021 1:27 PM CDT documented as of this encounter Medications [...] Group Family & Internal Medicine [facility] [place] [address] [place] [address] [place] [address] [place] [address] 02/15/2025 10:45 AM COMPENSATION BUSINESS PARTNER [facility] [address] [place], [place] [phone] Dale Shahid MD [facility], [address] [place] [address] documented as of this encounter Visit Diagnoses Not on filedocumented in this encounter Additional Health Concerns Assessment Noted Time PHQ-9 Depression Total Score: 0 12/14/19 9:36 AM CDT documented as of this encounter Care Teams Staffing Analyst Relationship Specialty Start Date End Date Paul Mejia MD PCP - General INTERNAL MEDICINE 12/13/20 07/19/22 documented as of this encounter
--- OUTSIDE RECORDS SUMMARY | 2024-04-11 05:36 | XMS_ITS | Encounter Summary ---
Author Organization [facility] Address [address] [place] [address]. [place] [address] [place] [address] Care Team Providers Care Pricing Strategist Name Role Phone José Schaffer MD Primary Care Provider Maty gallagher Encounter Details Date Type Department Care Team (Late st Contact Info) Description 10/14/[address] [address] Scanned, Documents Social History Tobacco Use Types [...] CDT Gender Identity Male 06/12/2021 5:16 AM DIVIDING MACHINE OPERATOR Sexual Orientation Straight 06/28/2021 10 [...] HOSPITAL Medical Group Family & Internal Medicine [facility] [address] [place] [address] [place] [address] [place], [place] [phone] 02/15/2025 10:45 AM DIVIDING MACHINE OPERATOR Office Visit [facility] [address] [place], [place] [phone] Dale Shahid MD [facility], [address] [place] [address] documented as of this encounter Visit Diagnoses Not on filedocumented in this encounter Care Teams Pricing Strategist Relationship Specialty Start Date End Date José Schaffer MD PCP - General INTERNAL MEDICINE 04/20/19 12/12/20 documented as of this encounter
--- OUTSIDE RECORDS SUMMARY | 2024-04-11 05:36 | XMS_ITS | Encounter Summary ---
Author Organization [facility] Address [address] [place] [address]. [place], [place] [address] [place] [address] Care Team Providers Care Entry Level Recruiter Name Role Phone José Schaffer MD Primary Care Provider Unava ilable Reason for Visit * Reason Comments CT (SCAN) Encounter Details Date Type Department Care Team (Latest Contact Info) Description 02/14/2020 Scan [facility] Scanned, Documents CT (SCAN) Social History Tobacco Use Types Packs/Day [...] CDT Gender Identity Male 06/12/2021 5:16 AM PATTERN DEVELOPER Sexual Orientation Straight 06/28/2021 10 :21 [...] Description 08/05/2024 10:00 AM CDT Office Visit [facility] Medical Group Family & Internal Medicine [address] [address] [place] [address] [place] [address] 02/15/2025 10:45 AM PATTERN DEVELOPER Office Visit [facility] [address] [place] [address] Dale Shahid MD [facility], [address] [place] [address] documented as of this encounter Procedures Procedure Name Priority Date/Time Associated Diagnosis Comments CT GENERIC 02/14/2020 documented in this encounter Results * CT GENERIC (02/14/2020) Anatomical Region Laterality Modality Other 02/14/2020 Narrative 02/14/2020 Ordered by an unspecified provider. us Documents Scanned SCANNING Final Result documented in this encounter Visit Diagnoses Not on filedocumented in this encounter Care Teams Entry Level Recruiter Relationship Specialty Start Date End Date José Schaffer MD PCP - General INTERNAL MEDICINE 04/20/19 12/12/20 documented as of this encounter
--- OUTSIDE RECORDS SUMMARY | 2024-04-11 05:36 | XMS_ITS | Encounter Summary ---
Author Organization [facility] Address [facility]ly [facility], later [facility]. [place], [place] [id number] [place] [address] Care Team Providers Care Lace Tearing Supervisor Name Role Phone Taj Schaffer MD Primary Care Provider Unava ilable Reason for Referral * Consultation/Treatment (Routine) - Closed Specialty Diagnoses / Procedures Referred By Contact Referred To Contact Cardiac Rehabilitation / [facility] Cardiopulmonary Rehab Diagnoses NSTEMI (non-ST elevated myocardial infarction) ([facility]) NSTEMI Procedures Cardiac Rehab Evaluation (Phase II) (ONLY ORDER IF MD) Dale Shahid MD [facility], [address] [place] [address] Phone: tel: fax: [facility] [address] [place] [address] Phone: tel:[phone] Referral ID Status Reason Start Date Expiration Date Visits Requested Visits Authorized [id number] Closed Cardiac Rehabilitation 10/26/2020 11/26/2021 36 36 Reason for Visit * Reason Comments Consult s/p NSTEMI while in [place] Encounter Details Date Type Department Care Team (Late st Contact Info) Description 10/26/2020 11:00 AM CDT Office Visit [facility] [place] [address] [facility] [address] [place] [address] Dale Shahid MD [facility] [address] [place] [address] Consult (s/p NSTEMI while in [place]) Social History Tobacco Use Types Packs/Day Years [...] CDT Gender Identity Male 06/12/2021 5:16 AM BUFFING MACHINE OPERATOR Sexual Orientation Straight 06/28/2021 10 :21 AM CDT COVID-19 Exposure Response Date Recorded In the last month, have you been in contact with someone who was confirmed or suspected to have Coronavirus / COVID-19? No / Unsure 10/26/2020 10:13 AM CDT documented as of this encounter Last Filed Vital Signs Vital Sign Reading Time Taken Comments Blood Pressure 120/80 10/26/2020 10:31 AM CDT Pulse 73 10/26/2020 10:31 AM CDT Temperature - - Respiratory Rate - - Oxygen Saturation - - Inhaled Oxygen Concentration - - Weight 122.9 kg (271 lb) 10/26/2020 10:31 AM CDT Height 182.9 cm (6') 10/26/2020 10:31 AM CDT Body Mass Index 36.75 10/26/2020 10:31 AM CDT documented in this encounter Patient Instructions * Patient Instructions* AVINASH Walker - 10/26/2020 11:00 AM CDT Patient Education Patient Education High Cholesterol The Basics Written by the doctors and editors at [facility] What is cholesterol???--??Cholesterol is a substance that is found in the blood. Everyone has some.It is needed for good health. The problem is, people sometimes have too much cholesterol. Compared with people with normal cholesterol, people with high cholesterol have a higher risk of heart attacks, strokes, and other health problems. The higher your cholesterol, the higher your risk of these pro blems. Are there different types of cholesterol???--??Yes, there are a few different types. If you get a cholesterol test, you might hear your doctor or nurse talk about: ?? Total cholesterol ?? LDL cholesterol - Some people call this the bad cholesterol. That's because having high LDL levels raises your risk of heart attacks, strokes, and other health problems. ?? HDL cholesterol - Some people call this the good cholesterol. That's because people with high HDL levels tend to have a lower risk of heart attacks, strokes, and other health problems. ?? Non-HDL cholesterol - Non-HDL cholesterol is your total cholesterol minus your HDL cholesterol. ?? Triglycerides - Triglycerides are not cholesterol. They are another type of fat. But they often get measured when cholesterol is measured. (Having high triglycerides also seems to increase the risk of heart attacks and strokes.) What should my numbers be???--??Ask your doctor or nurse what your numbers should be. Different people need different goals. (If you live outside the [place], see the table (table 1)). In general, people who do not already have heart disease should aim for: ?? Total cholesterol below 200 ?? LDL cholesterol below 130 - or much lower, if they are at risk of heart attacks or strokes ?? HDL cholesterol above 60 ?? Non-HDL cholesterol below 160 - or lower, if they are at risk of heart attacks or strokes ?? Triglycerides below 150 Keep in mind, though, that many people who cannot meet these goals still have a low risk of heart attacks and strokes. What should I do if my doctor tells me I have high cholesterol???--??Ask your doctor what your overall risk of heart attacks and strokes is. High cholesterol, by itself, is not always a reason to worry. Having high cholesterol is just one of many things that can increase your risk of heart attacks and strokes. Other factors that increase your risk include: ?? Cigarette smoking ?? High blood pressure ?? Having a parent, sister, or brother who got heart disease at a young age - Young, in this case, means younger than 55 for men and younger than 65 for women. ?? A diet that is not heart healthy - A heart-healthy diet includes lots of fruits and vegetables, fiber, and healthy fats (like those found in fish and certain oils). It also means limiting sugar and unhealthy fats. ?? Older age If you are at high risk of heart attacks and strokes, having high cholesterol is a problem. On the other hand, if you are at low risk, having high cholesterol might not lead to treatment. Should I take medicine to lower cholesterol???--??Not everyone who has high cholesterol needs medicines. Your doctor or nurse will decide if you need them based on your age, family history, and otherhealth concerns. You should probably take a cholesterol-lowering medicine called a statin if you: ?? Already had a heart attack or stroke ?? Have known heart disease ?? Have diabetes ?? Have a condition called peripheral artery disease, which makes it painful to walk, and happens when the arteries in your legs get clogged with fatty deposits ?? Have an abdominal aortic aneurysm, which is a widening of the main artery in the belly Most people with any of the conditions listed above should take a statin no matter what their cholesterol level is. If your doctor or nurse puts you on a statin, stay on it. The medicine might not make you feel any different. But it can help prevent heart attacks, strokes, and . Can I lower my cholesterol without medicines???--??Yes, you can lower your cholesterol some by: ?? Avoiding red meat, butter, fried foods, cheese, and other foods that have a lot of saturated fat ?? Losing weight (if you are overweight) ?? Being more active Even if these steps do little to change your cholesterol, they can improve your health in many ways. All topics are updated as new evidence becomes available and our peer review process is complete. This topic retrieved from [employer] on: Jun 14, 2020. Topic 24768 Version 18.0 Release: 29.1.3 - C29.60 ?2020??[employer]. and/or its affiliates.??All rights reserved. table 1: Cholesterol and triglyceride measurements in the [place] and elsewhere ?? Measurement used within the [place] Milligrams/deciliter (mg/dL) Measurement used most places outside the [place] Millimoles/liter (mmol/Liter) Level to aim for Level to aim for Total cholesterol Below 200 Below 5.17 LDL cholesterol Below 130??- or much lower if at risk of heart attack and stroke Below 3.36??- or much lower if at risk of heart attack and stroke HDL cholesterol Above 60 Above 1.55 Triglycerides Below 150 Below 1.7 Cholesterol is measured differently in the [place] than it is in most other countries. This table shows values used within and outside the [place]. It includes the cholesterol and triglyceride levels that most people who do not have heart disease should aim for. Graphic 47318 Version 3.0 Consumer Information Use and Disclaimer This information is not specific medical advice and does not replace information you receive from your health care provider. This is only a brief summary of general information. It does NOT include all information about conditions, illnesses, injuries, tests, procedures, treatments, therapies, discharge instructions or life-style choices that may apply to you. You must talk with your health care provider for complete information about your health and treatment options. This information should not be used to decide whether or not to accept your health care provider's advice, instructions or recommendations. Only your health care provider has the knowledge and training to provide advice that is right for you.The use of [employer] content is governed by the [employer] Terms of Use. ??2020 [employer]. All rights reserved. Copyright ?2020??[employer] and/or its affiliates.??All rights reserved. documented in this encounter Progress Notes * AVINASH Walker - 10/26/2020 11:00 AM CDTAddended by: TWIN HERRERA on: 10/26/2020 12:27 PM Modules accepted: Orders * Dale Shahid MD - 10/26/2020 11:00 AM CDT Reason for Visit: Consult (s/p NSTEMI while in [place]) History of Present Illness: Mr. Zhang is a 65 year old male with a PMH significant for dyslipidemia (over 20 years), obesity class II, CORIN on CPAP machine, hypothyroidism, nephrolithiasis and newly diagnosed CAD with NSTEMI (coronary angiography 10/14/20 with 99% mid circumflex disease s/p 3.5x38 mm Resoluted TAWANNA, 40% mid LADdisease, normal left main and RCA) who presents for an initial evaluation. He had been having intermittent chest tightness and shortness of breath on exertion for a couple ofdays. They were visiting their son in [place] when he woke up one day at 2:15am with severe chest pain like someone stabbed him in the chest, seen in [facility] with elevated troponin to 0.075. ECG had normal sinus rhythm with non-specific ST abnormalities. He had previously been on 20mg atorvastatin for over 20 years. He and his are eager to resume physical activity and exercise. They have changed his diet and he has already lost 10 lbs. No chest discomfort or dyspnea on exertion. No edema, orthopnea or PND. Recommendations and Plan: 1. CAD with NSTEMI: S/p TAWANNA to the mid circumflex, has known 40% mid LAD disease. Continue aspirin 81mg and ticagrelor 90mg bid for at least 12 months due to acute coronary syndrome then stop ticagrelor and continue aspirin lifelong. On atorvastatin 80mg qhs. Will repeat lipid panel and check an echo. Check CMP given new valsartan on his list of medications. LV normal at the time of coronary angiography. Continue valsartan 40mg qd and carvedilol 3.125mg bid. Encouraged him to continue physical activity and dietary changes. Referral for cardiac rehab. 2. Dyslipidemia: LDL 110 in July 2020, down to 84 in August after they resumed exercise. He is now onhigh intensity atorvastatin 80mg qhs. Repeat lipid panel in about 4 weeks to monitor response, goalLDL <70mg/dL. Follow up in 2 months. Medications: Current Outpatient Medications: ??? ASPIRIN [...] Tab, Take 1 tablet by mouth daily. holding, Disp: ,Rfl: ??? nitroglycerin 0.4 MG SL tablet, Place 0.4 mg under the tongue., Disp: , Rfl: ??? potassium citrate CR 10 MEQ (1080 MG) tablet, Take 10 mEq by mouth 3 (three) times daily with meals. holding, Disp: , Rfl: ??? valsartan 80 MG tablet, Take 40 mg by mouth daily. , Disp: , Rfl: ??? vitamin D3, cholecalciferol, 75 MCG (3000 UT) Tab tablet, Take 3,000 Units by mouth daily., Disp: , Rfl: No Known Allergies Past Medical History: Diagnosis Date ??? CAD (coronary artery disease) ??? Disease of thyroid gland ??? Hypercholesterolemia ??? Kidney stones Past Surgical History: Procedure [...] and PND. Gastrointestinal: Negative for heartburn, nausea, abdominal pain, blood in stool and melena. Genitourinary: Negative for dysuria. Musculoskeletal: Negative for myalgias and new or worsening joint stiffness/pain. Skin: Negative for rash. Neurological: Negative for tingling/numbness and focal weakness. Endo/Heme/Allergies: Negative for new or significant bruising/bleeding and polydipsia. Psychiatric/Behavioral: Negative for depression and new or significant memory loss. Vitals: 10/26/20 1031 BP: 120/80 Pulse: 73 Weight: 122.9 kg (271 lb) Height: 6' (1.829 m) Body mass index is 36.75 kg/m??. Cardiac [...] No S3. NoS4. Murmurs: No murmur present Edema left: 0. Edema Right: 0. Negative for edema. Physical Exam Constitutional: No distress. Healthy Appearance. HENT: Oropharynx clear. Eyes: Conjunctivae normal. Neck: Neck supple. Abdomen: Abdomen soft. Bowel sounds normal. No tenderness. No mass. Pulmonary: Effort normal. Breath sounds normal. No stridor. No rales. No wheezes. Skin: Dry. Warm. No rash. No cyanosis. No clubbing. No xanthoma. Musculoskeletal: No gross deformity.. Neurological: Alert. Oriented x 3. Appropriate mood and affect. Normal motor skills. Normal gait. Comments: Diagnoses/Impression: 1. CAD in [place] artery 2. Dyslipidemia Referring Provider: No ref. provider found PCP: TAJ SCHAFFER MD (Inactive) documented in this encounter Plan of Treatment Upcoming Encounters Date Type Department Care Team (Late st Contact Info) Description 08/05/2024 10:00 AM CDT Office Visit [facility] Family [place] [address] [place] [address] [place], [place] [id number] 02/15/2025 10:45 AM BUFFING MACHINE OPERATOR Office Visit [facility] [address] [place] [address] Dale Shahid MD [facility], [address] [place] [address] Scheduled Orders Name Type Priority Associated Diagnoses Orde r Schedule LIPID PANEL Lab Routine CAD in [place] artery Dyslipidemia NSTEMI (non-ST elevated myocardial infarction) ([facility]) Expected: 11/23/2020 (Approximate), Expires: 10/26/2021 COMPREHENSIVE METABOLIC PANEL Lab Routine CAD in [place] artery Dyslipidemia NSTEMI (non-ST elevated myocardial infarction) ([facility]) Expected: 10/26/2020 (Approximate), Expires: 10/26/2021 Cardiac Rehab Evaluation (Phase II) (ONLY ORDER IF MD) Card Rehab Routine NSTEMI (non-ST elevated myocardial infarction) ([facility]) Expected: 10/26/2020 (Approximate), Expires: 10/26/2021 documented as of this encounter Visit Diagnoses Diagnosis CAD in [place] artery- Primary Coronary atherosclerosis of [place] coronary artery Dyslipidemia Other and unspecified hyperlipidemia NSTEMI (non-ST elevated myocardial infarction) ([facility]) Acute myocardial infarction, subendocardial infarction, episode of care unspecified documented in this encounter Care Teams Lace Tearing Supervisor Relationship Specialty Start Date End Date Taj Schaffer MD PCP - General INTERNAL MEDICINE 04/20/19 12/12/20 documented as of this encounter
--- OUTSIDE RECORDS SUMMARY | 2024-04-11 05:36 | XMS_ITS | Encounter Summary ---
Author Organization [facility] Address [facility] [place] [address] [place] [address] Care Team Providers Care Tire Vulcanizer Name Role Phone Paul Mejia MD Primary Care Provider U navailable Reason for Visit * Consultation/Treatment (Routine) - Closed Specialty Diagnoses / Procedures Referred By Contact Referred To Contact Cardiac Rehabilitation / [facility] Cardiopulmonary Rehab Diagnoses NSTEMI (non-ST elevated myocardial infarction) ([facility]) NSTEMI Procedures Cardiac Rehab Evaluation (Phase II) (ONLY ORDER IF MD) Dale Shahid MD [facility], [address] [place] [address] Phone: tel: fax: [facility] [address] [place] [address] Phone: tel:[phone] Referral ID Status Reason Start Date Expiration Date Visits Requested Visits Authorized [id number] Closed Cardiac Rehabilitation 10/26/2020 11/26/2021 36 36 Encounter Details Date Type Department Care Team (Late st Contact Info) Description 02/07/2021 9:47 AM CDT - 02/07/2021 11:59 PM CDT Hospital Encounter [facility] [address] [place] [address] Dale Shahid MD [facility], [address] [place] [address] Discharge Disposition: Home or Self Care [...] CDT Gender Identity Male 06/12/2021 5:16 AM DIAMOND WHEEL EDGER Sexual Orientation Straight 06/28/2021 10 :21 AM [...] Description 08/05/2024 10:00 AM CDT Office Visit [facility] Family & Internal Medicine - [place] [address] [place] [address] [place] [address] [place] [address] 02/15/2025 10:45 AM DIAMOND WHEEL EDGER [facility] [address] [place], [place] [phone] Dale Shahid MD [facility], [address] [place] [address] documented as of this encounter Visit Diagnoses Not on filedocumented in this encounter Additional Health Concerns Assessment Noted Time PHQ-9 Depression Total Score: 0 12/14/19 9:36 AM CDT documented as of this encounter Care Teams Tire Vulcanizer Relationship Specialty Start Date End Date Paul Mejia MD PCP - General INTERNAL MEDICINE 12/13/20 07/19/22 documented as of this encounter
--- OUTSIDE RECORDS SUMMARY | 2024-04-11 05:36 | XMS_ITS | Encounter Summary ---
Author Organization [facility] Address [address] [place] [address]. [place], [place] [id number] [place] [address] Care Team Providers Care Bulldozer Engineer Name Role Phone José Schaffer MD Primary Care Provider Paul Clifton MD Primary Care Provider U Kacey Arias NP Primary Care Provider [phone] Amado Mathew Primary Care Provider [phone] Encounter Details Date Type Department Care Team (Late st Contact Info) Description 11/25/2020 [facility] Message Enc [facility] [address] [address] Mychart, [facility] Provider Results Social History Tobacco Use Types Packs/Day [...] CDT Gender Identity Male 06/12/2021 5:16 AM GOLD LEAF ROLLER Sexual Orientation Straight 06/28/2021 10 :21 [...] HEALTH Medical Group Family & Internal Medicine [facility] [address] [place] [address] [place] [address] [place] [address] 02/15/2025 10:45 AM GOLD LEAF ROLLER Office Visit [facility] [address] [place] [address] Dale Shahid MD [facility], [address] [place] [address] documented as of this encounter Visit Diagnoses Not on filedocumented in this encounter Additional Health Concerns Infection Onset Date Last Indicated Resolved Time COVID-19 Rule Out 10/31/2021 10/31/2021 10/31/2021 12:12 PM CDT COVID-19 Rule Out 02/27/2023 02/27/2023 02/27/2023 8:20 AM GOLD LEAF ROLLER COVID-19 Rule Out 02/28/2023 02/28/2023 02/28/2023 9:17 AM GOLD LEAF ROLLER COVID-19 Confirmed 02/28/2023 02/28/2023 12:32 AM GOLD LEAF ROLLER COVID-19 Rule Out 04/06/2024 04/06/2024 04/06/2024 7:33 AM GOLD LEAF ROLLER COVID-19 Confirmed 04/06/2024 04/06/2024 documented as of this encounter Care Teams Bulldozer Engineer Relationship Specialty Start Date End Date José Schaffer MD PCP - General INTERNAL MEDICINE 04/20/19 12/12/20 Paul Mejia MD PCP - General INTERNAL MEDICINE 12/13/20 07/19/22 [place] [address] [address], [address] [place] [address] PCP - General Nurse Practitioner Family 07/20/2206/13 [place] [address] [place] [address] PCP - General Physician [facility] 06/25/23 documented as of this encounter
--- OUTSIDE RECORDS SUMMARY | 2024-04-11 05:36 | XMS_ITS | Encounter Summary ---
Author Organization [facility] Address [facility] [place] [address] [place] [address] Care Team Providers Care Human Resource Manager Name Role Phone Paul Mejia MD Primary Care Provider U navailable Reason for Visit * Consultation/Treatment (Routine) - Closed Specialty Diagnoses / Procedures Referred By Contact Referred To Contact Cardiac Rehabilitation / [facility] Cardiopulmonary Rehab Diagnoses NSTEMI (non-ST elevated myocardial infarction) ([facility]) NSTEMI Procedures Cardiac Rehab Evaluation (Phase II) (ONLY ORDER IF MD) Dale Shahid MD [facility], [address] [place] [address] Phone: tel: fax: [facility] [address] [place] [address] Phone: tel:[phone] Referral ID Status Reason Start Date Expiration Date Visits Requested Visits Authorized [id number] Closed Cardiac Rehabilitation 10/26/2020 11/26/2021 36 36 Encounter Details Date Type Department Care Team (Late st Contact Info) Description 02/16/2021 1:25 PM CDT - 02/16/2021 11:59 PM CDT Hospital Encounter [facility] [address] [place] [address] Dale Shahid MD [facility], [address] [place] [address] Discharge Disposition: Home or Self Care [...] CDT Gender Identity Male 06/12/2021 5:16 AM JOURNEYMAN PIPE WELDER Sexual Orientation Straight 06/28/2021 10 :21 AM CDT COVID-19 Exposure Response Date Recorded In the last month, have you been in contact with someone who was confirmed or suspected to have Coronavirus / COVID-19? No / Unsure 02/16/2021 1:25 PM CDT documented as of this encounter [...] Medical Group Family & Internal Medicine - [place] [address] [place] [address] [place] [address] [place] [address] 02/15/2025 10:45 AM JOURNEYMAN PIPE WELDER [facility] [address] [place], [place] [phone] Dale Shahid MD [facility], [address] [place] [address] documented as of this encounter Visit Diagnoses Not on filedocumented in this encounter Additional Health Concerns Assessment Noted Time PHQ-9 Depression Total Score: 0 12/14/19 9:36 AM CDT documented as of this encounter Care Teams Human Resource Manager Relationship Specialty Start Date End Date Paul Mejia MD PCP - General INTERNAL MEDICINE 12/13/20 07/19/22 documented as of this encounter
--- OUTSIDE RECORDS SUMMARY | 2024-04-11 05:36 | XMS_ITS | Encounter Summary ---
Author Organization [facility] Address [address] [place] [address]. [place], [place] [address] [place] [address] Care Team Providers Care Roll Up Guider Operator Name Role Phone José Schaffer MD Primary Care Provider Maty gallagher Encounter Details Date Type Department Care Team (Late st Contact Info) Description 11/01/2020 8:31 AM CDT - 11/01/2020 11:59 PM CDT Hospital Encounter [facility] [address] [place] [address] [facility], [address] [place] [address] Discharge Disposition: Home or Self [...] CDT Gender Identity Male 06/12/2021 5:16 AM FARM ASSISTANT Sexual Orientation Straight 06/28/2021 10 :21 [...] 10/14/2020 2 BRILINTA 90 MG tablet Take 90 mg by mouth 2 (two) times daily. 10/14/2020 1 carvedilol 3.125 MG tablet Take 3.125 mg by mouth 2 (two) times daily. 10/14/2020 2 levothyroxine 125 MCG tabletIndications:Ot her specified hypothyroidism Take 1 tablet (125 mcg total) by mouth every morning. 90 tablet 1 08/22/2020 1 valsartan 40 MG tablet Take 1 tablet (40 mg total) by mouth daily. 10/26/2020 2 documented as of this encounter Plan of Treatment Upcoming Encounters Date Type Department Care Team (Late st Contact Info) Description 08/05/2024 10:00 AM CDT [facility] [address] [place] [address] [place] [address] [place], [place] [phone] 02/15/2025 10:45 AM FARM ASSISTANT Office Visit [facility] [place] [id number] [place] [address] 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 Dyslipidemia NSTEMI (non-ST elevated myocardial infarction) ([facility] HHS/HCC) documented in this encounter Results * (ABNORMAL) COMPREHENSIVE METABOLIC PANEL (11/01/2020 8:40 AM CDT) GLUCOSE 100(H) 70 - 99 MG/DL 11/01/2020 9:00 AM CDT [facility] BUN 21(H) 7 - 18 MG/DL 11/01/2020 9:00 AM T [facility] CREATININE S/P/B 1.43(H) 0.7 - 1.3 MG/DL 11/01/2020 9:00 AM CDT [facility] SODIUM S/P/B 144 136 - 145 MMOL/L 11/01/2020 9:00 AM T [facility] POTASSIUM S/P/B 4.9 3.5 - 5.1 MMOL/L 11/01/2020 9:00 AM T [facility] CHLORIDE S/P/B 108 100 - 108 MMOL/L 11/01/2020 9:00 AM T [facility] CO2 29.0 21 - 32 MMOL/L 11/01/2020 9:00 AM T [facility] CALCIUM S/P/B 9.5 8.5 - 10.1 MG/DL 11/01/2020 9:00 AM [facility] BILIRUBIN TOTAL S/P/B 1.1 0.2 - 1.2 MG/DL 11/01/2020 9:00 AM [facility] TOTAL PROTEIN S/P/B 7.2 6.4 - 8.2 G/DL 11/01/2020 9:00 AM [facility] ALBUMIN S/P/B 3.9 3.4 - 5.0 G/DL 11/01/2020 9:00 AM [facility] AST 17 15 - 37 U/L 11/01/2020 9:00 AM [facility] ALT 29 16 - 60 U/L 11/01/2020 9:00 AM [facility] ALKALINE PHOSPHATASE S/P/B 75 50 - 136 U/L 11/01/2020 9:00 AM [facility] ANION GAP 7.0 5 - 15 MMOL/L 11/01/2020 9:00 AM [facility] BUN CREATININE RATIO 14.7 6 - 26 11/01/2020 9:00 AM [facility] A/G RATIO 1.2 1.0 - 2.0 RATIO 11/01/2020 9:00 AM [facility] EGFR NON-AFR. AMER. 51(L) >90 ML/MIN/1.7 3 M2 11/01/2020 9:00 AM [facility] EGFR AFR. AMER. 59(L) >90 ML/MIN/1.7 3 M2 11/01/2020 9:00 AM [facility] Comment: NOTE: eGFR is not calculated for patients <18 years of age. This is an estimated GFR (CKD EPI) and should not be used for calculating drug doses. 11/01/2020 8:40 AM CDT us Dale Shahid MD LABORATORY Final Res ult [facility] [address] [place] [address], * LIPID PANEL (11/01/2020 8:40 AM CDT) CHOLESTEROL 128 <200.0 MG/DL 11/01/2020 9:00 AM CDT [facility] TRIGLYCERIDES 104 <150 MG/DL 11/01/2020 9:00 AM CDT [facility] HDL 41 >40.0 MG/DL 11/01/2020 9:00 AM CDT [facility] LDL (CALCULATED) 66 <100 MG/DL 11/02/19 9:00 AM CDT [facility] NON HDL CHOLESTEROL 87 <130 MG/DL 11/01 9:00 AM T [facility] CHOL/HDL RATIO 3.1 0.0 - 4.5 11/01/2020 9:00 AM T [facility] VLDL CALCULATION 21 5 - 55 MG/DL 11/01/2020 9:00 AM T [facility] LIPID INTERPRETATION 11/01/2020 9:00 AM T [facility] Comment: NIH CONCENSUS REPORT RECOMMENDATIONS: [...] ? 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
--- OUTSIDE RECORDS SUMMARY | 2024-04-11 05:36 | XMS_ITS | Encounter Summary ---
Author Organization [facility] Address [address] [place] [address]. [place], [place] [phone] [place] [address] Care Team Providers Care Sql Database Administrator Name Role Phone Paul Mejia MD Primary Care Provider Javier spencer Encounter Details Date Type Department Care Team (Latest Contact Info) Description 02/16/2021 Travel Social History Tobacco Use Types Packs/Day [...] Gender Identity Male 06/12/2021 5:16 AM SENIOR WATER RESOURCES ENGINEER Sexual Orientation Straight 06/28/2021 10 :21 [...] [facility] Family & Internal Medicine [facility] [address] [place] [phone] [place] [address] [place] [address] 02/15/2025 10:45 AM SENIOR WATER RESOURCES ENGINEER Office Visit [facility] [address] [place] [address] Dale Shahid MD [facility], [address] [place] [address] documented as of this encounter Visit Diagnoses Not on filedocumented in this encounter Additional Health Concerns Assessment Noted Time PHQ-9 Depression Total Score: 0 12/14/19 9:36 AM CDT documented as of this encounter Care Teams Sql Database Administrator Relationship Specialty Start Date End Date Paul Mejia MD PCP - General INTERNAL MEDICINE 12/13/20 07/19/22 documented as of this encounter
--- OUTSIDE RECORDS SUMMARY | 2024-04-11 05:36 | XMS_ITS | Encounter Summary ---
Author Organization [facility] Address [address] [place] [address]. [place], [place] [address] [place] [address] Care Team Providers Care Assembler And Tester Electronics Name Role Phone Taj Schaffer MD Primary Care Provider Unava ilable Reason for Visit * Reason Comments Establish Care New pt. Pt uses a CP AP. Pt brought blood work with him. Encounter Details Date Type Department Care Team (Late st Contact Info) Description 08/22/2020 8:20 AM CDT Office Visit [facility] Family & Internal Medicine [address] [address] Crystal Chatman, TRISTEN [address] [place] [phone] Establish Care (New pt. Pt uses a CPAP. Pt brought blood work with him.) Social History Tobacco Use Types Packs/Day Years [...] CDT Gender Identity Male 06/12/2021 5:16 AM BRANCH CHIEF Sexual Orientation Straight 06/28/2021 10 :21 AM CDT COVID-19 Exposure Response Date Recorded In the last month, have you been in contact with someone who was confirmed or suspected to have Coronavirus / COVID-19? No / Unsure 08/22/2020 7:54 AM CDT documented as of this encounter Last Filed Vital Signs Vital Sign Reading Time Taken Comments Blood Pressure 140/78 08/22/2020 8:10 AM CDT Pulse 74 08/22/2020 8:10 AM CDT Temperature 36.6 ??C (97.9 ??F) 08/22/2020 8:10 AM CD T Respiratory Rate 18 08/22/2020 8:10 AM CDT Oxygen Saturation 97% 08/22/2020 8:10 AM CDT Inhaled Oxygen Concentration - - Weight 129.3 kg (285 lb) 08/22/2020 8:10 AM CDT Height 182.9 cm (6') 08/22/2020 8:10 AM CDT Body Mass Index 38.65 08/22/2020 8:10 AM CDT documented in this encounter Progress Notes * Crystal Chatman, TRISTEN - 08/22/2020 8:20 AM CDT Reason for Visit: Establish Care (New pt. Pt uses a CPAP. Pt brought blood work with him.) History of Present Illness: Radha Zhang is a 64-year-old male who presents to the office today to establish care and for followup on chronic conditions. Doing well currently and tolerating medication but wanting to get up to date on management. Radha has past medical history hyperlipidemia and hypothyroidism. He reports using a Cpap every night with good response. He currently denies fatigue, chills, fever, congestion, rhinorrhea, cough, SOB, chest pain, palpitations, leg swelling, nausea, vomiting, diarrhea, changes in stools, blood in stool, myalgia, gait problem, headaches, weakness or difficulty with sleep. He does report a history of vertigo and has intermittent episodes lasting at most 15 seconds, but no curr ent concerns. He has no additional concerns today. Hyperlipidemia: currently taking Atorvastatin without any concerns. Labs performed and appear stable. Hypothyroid: currently taking levothyroxine without any concerns. Previous PCP was: Dr. Taj Pittman Colon CA screening: Td: will continue to discuss at each appointment PNA: will continue to discuss at each appointment Shingles: will discuss at each appointment Influenza: declines for season Most recent labs:07/2020 Specialists: urologist due to history of kidney stones ROS: Review of Systems Constitutional: Negative for chills, fatigue and fever. HENT: Negative for congestion, ear pain, hearing loss, rhinorrhea and tinnitus. Eyes: Negative for visual disturbance. Respiratory: Negative for cough and shortness of breath. Cardiovascular: Negative for chest pain, palpitations and leg swelling. Gastrointestinal: Negative for blood in stool, change in bowel habit, diarrhea, nausea and vomiting. Musculoskeletal: Negative for gait problem and myalgias. Neurological: Positive for dizziness. Negative for weakness and headaches. Psychiatric/Behavioral: Negative for sleep disturbance. Medications: Current Outpatient Medications: ??? atorvastatin 20 MG tablet, Take 20 mg by mouth nightly at bedtime., Disp: , Rfl: ??? levothyroxine 125 MCG tablet, Take 125 mcg by mouth every morning., Disp: , Rfl: ??? Multiple Vitamins-Minerals (CENTRUM SILVER) Tab, Take 1 tablet by mouth daily., Disp: , Rfl: ??? potassium citrate CR 10 MEQ (1080 MG) tablet, Take 10 mEq by mouth 3 (three) times daily with meals., Disp: , Rfl: ??? vitamin D3, cholecalciferol, 75 MCG (3000 UT) Tab tablet, Take 3,000 Units by mouth daily., Disp: , Rfl: No Known Allergies Past Medical History: Diagnosis Date ??? Disease of thyroid gland ??? Hypercholesterolemia ??? Kidney stones Past Surgical History: Procedure Laterality Date ??? LITHOTRIPSY Social History Socioeconomic History ??? Marital status: Spouse name: Not on file ??? Number of children: Not on file ??? Years of education: Not on file ??? Highest education level: Not on file Occupational History ??? Not on file Tobacco Use ??? Smoking status: Never Smoker ??? Smokeless tobacco: Never Used Substance and Sexual Activity ??? Alcohol use: Yes Comment: occasional 2-3 weeks ??? Drug use: No ??? Sexual activity: Not on file Other Topics Concern ??? Not on file Social History Narrative ??? Not on file Social Determinants of Health Financial Resource Strain: ??? Difficulty of Paying Living Expenses: Food Insecurity: ??? Worried About Running Out of Food in the Last Year: ??? Ran Out of Food in the Last Year: Transportation Needs: ??? Lack of Transportation (Medical): ??? Lack of Transportation (Non-Medical): Physical Activity: ??? Days of Exercise per Week: ??? Minutes of Exercise per Session: Stress: ??? Feeling of Stress : Social Connections: ??? Frequency of Communication with Friends and Family: ??? Frequency of Social Gatherings with Friends and Family: ??? Attends Voodoo Services: ??? Active Member of Clubs or Organizations: ??? Attends Club or Organization Meetings: ??? Marital Status: Intimate Partner Violence: ??? Fear of Current or Ex-Partner: ??? Emotionally Abused: ??? Physically Abused: ??? Sexually Abused: Family History Problem Relation Name Age of Onset ??? Diabetes Mother ??? Heart Disease Father ??? Diabetes Brother ??? Heart Disease Brother ??? Kidney Disease Brother Family Status Relation Name Status ??? Mother (Not Specified) ??? Father (Not Specified) ??? Brother (Not Specified) Physical Exam Vitals and nursing note reviewed. Constitutional: General: He is awake. He is not in acute distress. Appearance: Normal appearance. He is well-developed and well-groomed. He is obese. He is not ill-appearing, toxic-appearing or diaphoretic. HENT: Head: Normocephalic and atraumatic. Right Ear: Hearing and external ear normal. Left Ear: Hearing and external ear normal. Nose: Nose normal. Mouth/Throat: Uvula is midline, oropharynx is clear and moist and mucous membranes are normal. Eyes: General: Lids are normal. Extraocular Movements: Extraocular movements intact. Conjunctiva/sclera: Conjunctivae normal. Pupils: Pupils are equal, round, and reactive to light. Cardiovascular: Rate and Rhythm: Normal rate and regular rhythm. Pulses: Radial pulses are 3+ on the right side and 3+ on the left side. Heart sounds: Normal heart sounds. No murmur. No gallop. Pulmonary: Effort: Pulmonary effort is normal. Breath sounds: Normal breath sounds and air entry. Abdominal: General: Bowel sounds are normal. There is no distension. Palpations: Abdomen is soft. There is no hepatomegaly, splenomegaly or mass. Tenderness: There is no abdominal tenderness. There is no guarding or rebound. Musculoskeletal: Cervical back: Normal range of motion. Right lower leg: No edema. Left lower leg: No edema. Lymphadenopathy: Head: Right side of head: No submental, submandibular, tonsillar, preauricular, posterior auricular or occipital adenopathy. Left side of head: No submental, submandibular, tonsillar, preauricular, posterior auricular or occipital adenopathy. Cervical: No cervical adenopathy. Skin: General: Skin is warm and dry. Capillary Refill: Capillary refill takes less than 2 seconds. Findings: No rash. Neurological: General: No focal deficit present. Mental Status: He is alert and oriented to person, place, and time. Gait: Gait is intact. Psychiatric: Attention and Perception: Attention and perception normal. Mood and Affect: Mood and affect normal. Speech: Speech normal. Behavior: Behavior normal. Behavior is cooperative. Thought Content: Thought content normal. Cognition and Memory: Cognition and memory normal. Judgment: Judgment normal. Filed Vitals: 08/22/20 0810 BP: 140/78 Pulse: 74 Resp: 18 Temp: 97.9 ??F (36.6 ??C) TempSrc: Oral SpO2: 97% Weight: 129.3 kg (285 lb) Height: 6' (1.829 m) Diagnoses/Impression: 1. Mixed hyperlipidemia 2. Other specified hypothyroidism Recommendations and Plan: 1. Mixed hyperlipidemia Chronic, controlled condition. Continue current medication - atorvastatin 20 MG tablet; Take 1 tablet (20 mg total) by mouth nightly at bedtime. Dispense: 90 tablet; Refill: 1 2. Other specified hypothyroidism Chronic, controlled condition. Continue current medication - levothyroxine 125 MCG tablet; Take 1 tablet (125 mcg total) by mouth every morning. Dispense: 90 tablet; Refill: 1 Orders Placed This Encounter ??? vitamin D3, cholecalciferol, 75 MCG (3000 UT) Tab tablet ??? Multiple Vitamins-Minerals (CENTRUM SILVER) Tab Reviewed and updated this visit by provider: TRISTEN VILLANUEVA Referring Provider: No ref. provider found PCP: TAJ SCHAFFER MD Cosigned by Dom Martin MD at 08/22/2020 9:55 AM CDT documented in this encounter Plan of Treatment Upcoming Encounters Date Type Department Care Team (Late st Contact Info) Description 08/05/2024 10:00 AM CDT Office Visit [facility] Family & Internal Medicine [facility] [address] [place] [address] [place] [address] [place] [address] 02/15/2025 10:45 AM BRANCH CHIEF Office Visit [facility] [address] [place] [address] Dale Shahid MD [facility], [address] [place] [address] documented as of this encounter Visit Diagnoses Diagnosis Mixed hyperlipidemia- Primary Other specified hypothyroidism documented in this encounter Care Teams Assembler And Tester Electronics Relationship Specialty Start Date End Date Taj Schaffer MD PCP - General INTERNAL MEDICINE 04/20/19 12/12/20 documented as of this encounter
--- OUTSIDE RECORDS SUMMARY | 2024-04-11 05:36 | XMS_ITS | Encounter Summary ---
Author Organization [facility] Address [facility] [place] [address] [place] [address] Care Team Providers Care Parish Visitor Name Role Phone José Schaffer MD Primary Care Provider Unava ilable Reason for Visit * Imaging (Routine) - Closed Specialty Diagnoses / Procedures Referred By Contac t Referred To Contact RADIOLOGY Diagnoses CAD in [place] artery Dyslipidemia NSTEMI (non-ST elevated myocardial infarction) ([facility]) Procedures USE ECHOCARDIOGRAM W CON USE ECHOCARDIOGRAM USE ECHOCARDIOGRAM Dale Shahid MD [facility], [address] [place] [address] Phone: tel: fax: [facility] [address] [place] [address] Phone: tel: Referral ID Status Reason Start Date Expiration Date Visits Re quested Visits Authorized [id number] Closed 10/26/2020 11/26/2021 1 1 Encounter Details Date Type Department Care Team (Late st Contact Info) Description 11/17/2020 8:01 AM CDT - 11/17/2020 11:59 PM CDT Hospital Encounter [facility] Ultrasound [address] [place] [address] Dale Shahid MD [facility], [address] [place] [address] Discharge Disposition: Home or Self Care [...] CDT Gender Identity Male 06/12/2021 5:16 AM LOGISTICS MANAGEMENT SPECIALIST Sexual Orientation Straight 06/28/2021 10 :21 [...] Description 08/05/2024 10:00 AM CDT Office Visit [facility] Family & Internal Medicine [facility] [address] [place] [address] [place] [address] [place] [address] 02/15/2025 10:45 AM LOGISTICS MANAGEMENT SPECIALIST Office Visit [facility] [address] [place] [address] Dale Shahid MD [facility], [address] [place], [place] [id number] documented as of this encounter Procedures Procedure Name Priority Date/Time Associated Diagnosis Comments USE ECHOCARDIOGRAM W CON Routine 11/17/2020 9:25 AM CDT CAD in [place] artery Dyslipidemia NSTEMI (non-ST elevated myocardial infarction) ([facility]) documented in this encounter Results * USE ECHOCARDIOGRAM W CON (11/17/2020 9:25 AM CDT) Anatomical Region Laterality Modality NA Ultrasound Dale Shahid MD ECHO Final Res ult documented in this encounter Visit Diagnoses Diagnosis CAD in [place] artery Coronary atherosclerosis of [place] coronary artery Dyslipidemia Other and unspecified hyperlipidemia NSTEMI (non-ST elevated myocardial infarction) ([facility]) Acute myocardial infarction, subendocardial infarction, episode of care unspecified documented in this encounter Administered Medications Inactive Administered Medications - up to 3 most recent administrations Medication Order MAR Action Action Date Dose Rate Site perflutren lipid microsphere (DEFINITY) injection 2 mL 2 mL, Intravenous, IMG once as needed, Contrast, 1 dose, Starting on Beulah 11/17/20 at 0925, Until Beulah 11/17/20 at 0925, Administer over 30-60 seconds. Follow with 10 mL saline flush. Given 11/17/2020 9:25 AM CDT 2 mLs Steve gomez Arm documented in this encounter Care Teams Parish Visitor Relationship Specialty Start Date End Date José Schaffer MD PCP - General INTERNAL MEDICINE 04/20/19 12/12/20 documented as of this encounter
--- OUTSIDE RECORDS SUMMARY | 2024-04-11 05:36 | XMS_ITS | Encounter Summary ---
Author Organization [facility] Address [address] [place] [address]. [place], [place] [address] [place] [address] Care Team Providers Care White Shoe Examiner Name Role Phone Paul Cain MD Primary Care Provider U navailable Reason for Visit * Reason Comments Acute Note c/o L shoulder pain. 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 Patient states he has been using heat to help but noticed little improvement. Shoulder Pain Encounter Details Date Type Department Care Team (Late st Contact Info) Description 12/13/2020 9:40 AM CDT Office Visit [facility] Family & Internal Medicine [address] [address] Paul Cain MD Acute Note (c/o L shoulder pain. 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 Patient states he has been using heat to help but noticed little improvement. ); Shoulder Pain Social History Tobacco Use Types Packs/Day Years Used Date Smoking Tobacco: Never Smokeless Tobacco: Never Tobacco Cessation:Counseling Given: No Alcohol Use Standard Drinks/Week Comments Yes 0 [...] CDT Gender Identity Male 06/12/2021 5:16 AM NIGHT WAREHOUSE MANAGER Sexual Orientation Straight 06/28/2021 10 :21 AM CDT COVID-19 Exposure Response Date Recorded In the last month, have you been in contact with someone who was confirmed or suspected to have Coronavirus / COVID-19? No / Unsure 12/12/2020 7:48 PM CDT documented as of this encounter Last Filed Vital Signs Vital Sign Reading Time Taken Comments Blood Pressure 126/84 12/13/2020 9:30 AM CDT Pulse 70 12/13/2020 9:30 AM CDT Temperature 36.7 ??C (98 ??F) 12/13/2020 9:30 AM CDT Respiratory Rate 18 12/13/2020 9:30 AM CDT Oxygen Saturation 98% 12/13/2020 9:30 AM CDT Inhaled Oxygen Concentration - - Weight 121.2 kg (267 lb 3.2 oz) 12/13/2020 9:30 AM CDT Height 182.9 cm (6') 12/13/2020 9:30 AM CDT Body Mass Index 36.24 12/13/2020 9:30 AM CDT documented in this encounter Progress Notes * Paul Cain MD - 12/13/2020 9:40 AM CDT Reason for Visit: Acute Note (c/o L shoulder pain. 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 Patient states he has been using heat to help but noticed little improvement. ) and Shoulder Pain Filed Vitals: 12/13/20 0930 BP: 126/84 Pulse: 70 Resp: 18 Temp: 98 ??F (36.7 ??C) TempSrc: Temporal SpO2: 98% Weight: 121.2 kg (267 lb 3.2 oz) Height: 6' (1.829 m) Body mass index is 36.24 kg/m??. History of Present Illness: HPI good morning office visit and a pleasant gentleman Mr. Zhang comes today because he woke up with the pain in the left shoulder and this is about for days ago he thinks that he is getting betterhe denies any injury in this is not the first time he had episode like this before usually because he sleeps in the wrong position probably as he wakes up with that. ROS: Review of Systems Constitutional: Negative. Respiratory: Negative. Cardiovascular: Negative. Gastrointestinal: Negative. Musculoskeletal: Positive for joint pain. Left shoulder pain Neurological: Negative. Psychiatric/Behavioral: Negative. Medications: Current Outpatient Medications: ??? ASPIRIN EC [...] artery disease) ??? COVID-19 vaccine administered 2020 MiniVax ??? Disease of thyroid gland ??? Hypercholesterolemia [...] Gatherings with Friends and Family: ??? Attends Pentecostal Services: ??? Active Member of Clubs or [...] ??? PGF (Not Specified) Physical Exam Constitutional: He is oriented to person, place, and time. He appears well- developed and well-nourished. Cardiovascular: Normal rate and regular rhythm. Pulmonary/Chest: Effort normal and breath sounds normal. Musculoskeletal: General: Tenderness present. No deformity or edema. Cervical back: Normal range of motion and neck supple. Comments: The range of motion in the left shoulder is very preserved perhaps a little bit of limitation of complete abduction all the way up to the top but does not cause any pain I think he is a restriction there the pain comes to a certain motion toward the front and twisting the arm and the painis in the anterior aspect of the shoulder mostly in the biceps tendon area there is no weakness andthere is no symptoms of or signs of rotator cuff injury. So I think this is more tendinitis Neurological: He is alert and oriented to person, place, and time. Psychiatric: He has a normal mood and affect. Assessment Encounter Diagnose(s) ICD-10-CM ICD-9-CM SNOMED CT(R) 1. Acute pain of left shoulder M25.512 719.41 SHOULDER PAIN 2. Other specified hypothyroidism E03.8 244.8 HYPOTHYROIDISM levothyroxine 125 MCG tablet Plan so today we will look at the whole situation I know he is taking a blood thinner so as he is getting better I told him that he just continue with ice in the shoulder to help the inflammation he asked me if he could use an antiinflammation medicine so I told him that as a rule not however he can use use Very short. Time Aleve 2 pills twice a day for 5 days maximum no more than that. However since he was getting better probably better just to give a little longerTime and he eventually would do fine. Orders Placed This Encounter ??? levothyroxine 125 MCG tablet Follow up FU PRN PAUL CAIN MD 12/13/2020 9:56 AM documented in this encounter Plan of Treatment Upcoming Encounters Date Type Department Care Team (Late st Contact Info) Description 08/05/2024 10:00 AM CDT Office Visit [facility] Family & Internal Medicine - [address] [address] [place] [address] [place] [address] 02/15/2025 10:45 AM NIGHT WAREHOUSE MANAGER Office Visit [facility] [address] [place] [address] [place] Shahid MD Three [facility], [address] [place] [address] documented as of this encounter Visit Diagnoses Diagnosis Acute pain of left shoulder- Primary Other specified hypothyroidism documented in this encounter Additional Health Concerns Assessment Noted Time PHQ-9 Depression Total Score: 0 12/14/19 9:36 AM CDT documented as of this encounter Care Teams White Shoe Examiner Relationship Specialty Start Date End Date Paul Cain MD PCP - General INTERNAL MEDICINE 12/13/20 07/19/22 documented as of this encounter
--- OUTSIDE RECORDS SUMMARY | 2024-04-11 05:37 | XMS_ITS | Encounter Summary ---
Author Organization [facility] Address [address] [place] [address]. [place], [place] [address] [place] [address] Care Team Providers Care Tagman Name Role Phone José Schaffer MD Primary Care Provider Unava ilable Reason for Visit * Reason Comments Lab (SCAN) Encounter Details Date Type Department Care Team (Latest Contact Info) Description 08/14/2016 Scan [facility] Scanned, Documents Lab (SCAN) Social History Tobacco Use Types Packs/Day Years Used Date Smoking Tobacco: Never Assessed PHQ-2 Answer Date Recorded PHQ-2 Score - If the patient scores above 3, please move on to questions 3-9 0 08/22/2020 Sex and Gender Information Value Date Recorded Sex Assigned at Not on file Legal Sex Male 7:33 PM CDT Gender Identity Male 06/12/2021 5:16 AM GIS GEOGRAPHER Sexual Orientation Straight 06/28/2021 10 :21 AM [...] Description 08/05/2024 10:00 AM CDT Office Visit [facility] Family & Internal Medicine [address] [address] Amado Mathew PA [address] [place] [address] 02/15/2025 10:45 AM GIS GEOGRAPHER Office Visit [facility] [address] [place] [address] [place] Shahid MD Three [facility] [address] [place] [address] documented as of this encounter Procedures Procedure Name Priority Date/Time Associated Diagnosis Comments OUTSIDE LAB (SCAN ORDER) 08/14/2016 documented in this encounter Results * OUTSIDE LAB (SCAN) (08/14/2016) 08/14/2016 Narrative 08/14/2016 Ordered by an unspecified provider. us Documents Scanned SCANNING Final Result documented in this encounter Visit Diagnoses Not on filedocumented in this encounter Care Teams Tagman Relationship Specialty Start Date End Date José Schaffer MD PCP - General INTERNAL MEDICINE 04/20/19 12/12/20 documented as of this encounter
--- OUTSIDE RECORDS SUMMARY | 2024-04-11 05:37 | XMS_ITS | Encounter Summary ---
Author Organization [facility] Address [address] [place] [address]. [place], [place] [address] [place] [address] Care Team Providers Care Irrigation Equipment Remover Name Role Phone José Schaffer MD Primary Care Provider Unava ilable Reason for Visit * Reason Comments Image (SCAN) Encounter Details Date Type Department Care Team (Latest Contact Info) Description 07/30/2019 Scan [facility] Scanned, Documents Image (SCAN) Social History Tobacco Use Types Packs/Day [...] CDT Gender Identity Male 06/12/2021 5:16 AM SPECIAL EFFECTS PERSON Sexual Orientation Straight 06/28/2021 10 :21 AM [...] Description 08/05/2024 10:00 AM CDT Office Visit [facility] Family & Internal Medicine [address] [address] [place] [address] [place] [address] 02/15/2025 10:45 AM SPECIAL EFFECTS PERSON Office Visit [facility] [address] [place] [address] [place] Shahid MD Three [facility], [address] [place] [address] documented as of this encounter Procedures Procedure Name Priority Date/Time Associated Diagnosis Comments IMAGE GENERIC 07/30/2019 documented in this encounter Results * IMAGE GENERIC (07/30/2019) Anatomical Region Laterality Modality Other 07/30/2019 Narrative 07/30/2019 Ordered by an unspecified provider. us Documents Scanned SCANNING Final Result documented in this encounter Visit Diagnoses Not on filedocumented in this encounter Care Teams Irrigation Equipment Remover Relationship Specialty Start Date End Date José Schaffer MD PCP - General INTERNAL MEDICINE 04/20/19 12/12/20 documented as of this encounter
--- OUTSIDE RECORDS SUMMARY | 2024-04-11 05:37 | XMS_ITS | Encounter Summary ---
Author Organization [facility] Address [address] [place] [address]. [place] [address] [place] [address] Care Team Providers Care Windows Security Analyst Name Role Phone Unavailable Primary Care Provider Unavailabl e Encounter Details Date Type Department Care Team (Late st Contact Info) Description 04/22/2015 Abstract [facility] [address] [place] [address] Vida Frey, [facility] [address] [address] Social History Tobacco Use Types Packs/Day Years Used Date Smoking Tobacco: Never Assessed Sex and Gender Information Value Date Recorded Sex Assigned at Not on file Legal Sex Male 7:33 PM CDT Gender Identity Male 06/12/2021 5:16 AM TRACK LAYER Sexual Orientation Straight 06/28/2021 10 :21 AM CDT documented as of this encounter Plan of Treatment Upcoming Encounters Date Type Department Care Team (Late st Contact Info) Description 08/05/2024 10:00 AM CDT Office Visit [facility] Family & Internal Medicine [facility] [address] [place] [address] [place] [address] [place] [address] 02/15/2025 10:45 AM TRACK LAYER Office Visit [facility] [address] [place] [address] [place] Shahid MD [facility], [address] [place] [address] documented as of this encounter Visit Diagnoses Diagnosis Acute nasopharyngitis (common cold) documented in this encounter
--- OUTSIDE RECORDS SUMMARY | 2024-04-11 05:37 | XMS_ITS | Encounter Summary ---
Author Organization [facility] Address [address] [place] [address]. [place] [address] [place] [address] Care Team Providers Care Director Investment Banking Name Role Phone Unavailable Primary Care Provider Unavailabl e Encounter Details Date Type Department Care Team (Late st Contact Info) Description 09/23/2009 Abstract [facility] Emergency Room [address] [place] [address] Myah Marcial MD [address] [place] [address] Social History Tobacco Use Types Packs/Day Years Used Date Smoking Tobacco: Never Assessed Sex and Gender Information Value Date Recorded Sex Assigned at Not on file Legal Sex Male 7:33 PM CDT Gender Identity Male 06/12/2021 5:16 AM RECORDS MANAGEMENT COORDINATOR Sexual Orientation Straight 06/28/2021 10 :21 AM CDT documented as of this encounter Plan of Treatment Upcoming Encounters Date Type Department Care Team (Late st Contact Info) Description 08/05/2024 10:00 AM CDT Office Visit [facility] Family & Internal Medicine [facility] [address] [place] [address] [place] [address] [place] [address] 02/15/2025 10:45 AM RECORDS MANAGEMENT COORDINATOR Office Visit [facility] [place] [address] [facility] [address] [place] [address] [place] [address] [place] Shahid MD [facility], [address] [place] [address] documented as of this encounter Visit Diagnoses Not on filedocumented in this encounter
--- OUTSIDE RECORDS SUMMARY | 2024-04-11 05:37 | XMS_ITS | Encounter Summary ---
Author Organization [facility] Address [address] [place] [address]. [place] [address] [place] [address] Care Team Providers Care Head Athletic Trainer Name Role Phone Unavailable Primary Care Provider Unavailabl e Encounter Details Date Type Department Care Team (Late st Contact Info) Description 08/30/2015 Abstract [facility] [address] [place] [address] Sudheer Vázquez MD [address] [place] [address] Social History Tobacco Use Types Packs/Day Years Used Date Smoking Tobacco: Never Assessed Sex and Gender Information Value Date Recorded Sex Assigned at Not on file Legal Sex Male 7:33 PM CDT Gender Identity Male 06/12/2021 5:16 AM COREMAKER FLOOR Sexual Orientation Straight 06/28/2021 10 :21 AM CDT documented as of this encounter Plan of Treatment Upcoming Encounters Date Type Department Care Team (Late st Contact Info) Description 08/05/2024 10:00 AM CDT Office Visit [facility] Family & Internal Medicine [facility] [address] [place] [address] [place] [address] [place], [place] [id number] 02/15/2025 10:45 AM COREMAKER FLOOR Office Visit [facility] [place] [id number] [place] [address] Dale Shahid MD [facility], [address] [place] [address] documented as of this encounter Visit Diagnoses Diagnosis Calculus of kidney documented in this encounter
--- OUTSIDE RECORDS SUMMARY | 2024-04-11 05:37 | XMS_ITS | Encounter Summary ---
Author Organization [facility] Address [address] [place] [address]. [place] [address] [place] [address] Care Team Providers Care Patient Assessment Coordinator Name Role Phone Unavailable Primary Care Provider Unavailabl e Encounter Details Date Type Department Care Team (Late st Contact Info) Description 06/03/1998 Abstract [facility] CONVERSION [address] [place] [address] , Generic MD Kandi Social History Tobacco Use Types Packs/Day Years Used Date Smoking Tobacco: Never Assessed Sex and Gender Information Value Date Recorded Sex Assigned at Not on file Legal Sex Male 7:33 PM CDT Gender Identity Male 06/12/2021 5:16 AM ARTIST CONSULTANT Sexual Orientation Straight 06/28/2021 10 :21 AM CDT documented as of this encounter Plan of Treatment Upcoming Encounters Date Type Department Care Team (Late st Contact Info) Description 08/05/2024 10:00 AM CDT Office Visit [facility] Family & Internal Medicine [facility] [address] [place] [address] [place] [address] [place] [address] 02/15/2025 10:45 AM ARTIST CONSULTANT Office Visit [facility] [address] [place] [address] Dale Shahid MD [facility], [address] [place] [address] documented as of this encounter Visit Diagnoses Not on filedocumented in this encounter
--- OUTSIDE RECORDS SUMMARY | 2024-04-11 05:37 | XMS_ITS | Encounter Summary ---
Author Organization [facility] Address [address] [place] [address]. [place] [address] [place] [address] Care Team Providers Care Laborer Petroleum Refinery Name Role Phone Unavailable Primary Care Provider Unavailabl e Encounter Details Date Type Department Care Team (Late st Contact Info) Description 09/04/2002 Abstract [facility] CONVERSION [address] [place] [address] , Generic ConversionMD Social History Tobacco Use Types Packs/Day Years Used Date Smoking Tobacco: Never Assessed Sex and Gender Information Value Date Recorded Sex Assigned at Not on file Legal Sex Male 7:33 PM CDT Gender Identity Male 06/12/2021 5:16 AM PUBLIC RELATIONS SENIOR ASSOCIATE Sexual Orientation Straight 06/28/2021 10 :21 AM CDT documented as of this encounter Plan of Treatment Upcoming Encounters Date Type Department Care Team (Late st Contact Info) Description 08/05/2024 10:00 AM CDT Office Visit [facility] Family & Internal Medicine [facility] [address] [place] [address] [place] [address] [place] [address] 02/15/2025 10:45 AM PUBLIC RELATIONS SENIOR ASSOCIATE Office Visit [facility] [address] [place] [address] Dale Shahid MD [facility], [address] [place] [address] documented as of this encounter Visit Diagnoses Not on filedocumented in this encounter
--- OUTSIDE RECORDS SUMMARY | 2024-04-11 05:37 | XMS_ITS | Encounter Summary ---
Author Organization [facility] Address [address] [place] [address]. [place] [address] [place] [address] Care Team Providers Care Help Desk Consultant Name Role Phone Unavailable Primary Care Provider Unavailabl e Encounter Details Date Type Department Care Team (Late st Contact Info) Description 02/02/2013 Abstract [facility] [address] [place] [address] Thor Donis MD Social History Tobacco Use Types Packs/Day Years Used Date Smoking Tobacco: Never Assessed Sex and Gender Information Value Date Recorded Sex Assigned at Not on file Legal Sex Male 7:33 PM CDT Gender Identity Male 06/12/2021 5:16 AM VAULT MECHANIC Sexual Orientation Straight 06/28/2021 10 :21 AM CDT documented as of this encounter Plan of Treatment Upcoming Encounters Date Type Department Care Team (Late st Contact Info) Description 08/05/2024 10:00 AM CDT Office Visit [facility] Family & Internal Medicine [facility] [address] [place] [address] [place] [address] [place] [address] 02/15/2025 10:45 AM VAULT MECHANIC Office Visit [facility] [place] [address] [place] [address] Dale Shahid MD [facility], [address] [place] [address] documented as of this encounter Visit Diagnoses Diagnosis Pain in soft tissues of limb Pain in limb documented in this encounter
--- OUTSIDE RECORDS SUMMARY | 2024-04-11 05:37 | XMS_ITS | Encounter Summary ---
Author Organization [facility] Address [address] [place] [address]. [place] [address] [place] [address] Care Team Providers Care Probation Worker Name Role Phone Unavailable Primary Care Provider Unavailabl e Encounter Details Date Type Department Care Team (Late st Contact Info) Description 05/17/2011 Abstract [facility] Emergency Room [address] [place], [place] [id number] Steve Morales MD Social History Tobacco Use Types Packs/Day Years Used Date Smoking Tobacco: Never Assessed Sex and Gender Information Value Date Recorded Sex Assigned at Not on file Legal Sex Male 7:33 PM CDT Gender Identity Male 06/12/2021 5:16 AM COMMERCIAL GREEN BUILDING DESIGNER Sexual Orientation Straight 06/28/2021 10 :21 AM CDT documented as of this encounter Plan of Treatment Upcoming Encounters Date Type Department Care Team (Late st Contact Info) Description 08/05/2024 10:00 AM CDT Office Visit [facility] Family & Internal Medicine [facility] [address] [place] [address] [place] [address] [place] [address] 02/15/2025 10:45 AM COMMERCIAL GREEN BUILDING DESIGNER Office Visit [facility] [place] [address] [place] [address] Dale Shahid MD [facility], [address] [place] [id number] documented as of this encounter Visit Diagnoses Diagnosis Calculus of kidney documented in this encounter
--- OUTSIDE RECORDS SUMMARY | 2024-04-11 05:37 | XMS_ITS | Encounter Summary ---
Author Organization [facility] Address [address] [place] [address]. [place], [place] [address] [place] [address] Care Team Providers Care Food Tester Name Role Phone José Schaffer MD Primary Care Provider Unava ilable Reason for Visit * Reason Comments Indigestion Encounter Details Date Type Department Care Team (Late st Contact Info) Description 04/20/2019 12:38 PM FRONT OFFICE ADMINISTRATOR - 04/20/2019 1:24 PM FRONT OFFICE ADMINISTRATOR Emergency [facility] Emergency Room [address] [place] [address] Rui Mitchell MD Indigestion Discharge Disposition: Home or Self Care (Routine [...] CDT Gender Identity Male 06/12/2021 5:16 AM FRONT OFFICE ADMINISTRATOR Sexual Orientation Straight 06/28/2021 10 :21 AM CDT documented as of this encounter Last Filed Vital Signs Vital Sign Reading Time Taken Comments Blood Pressure 155/92 04/20/2019 12:40 PM FRONT OFFICE ADMINISTRATOR Pulse 68 04/20/2019 12:40 PM FRONT OFFICE ADMINISTRATOR Temperature 36.9 ??C (98.5 ??F) 04/20/2019 12:[address] Respiratory Rate 16 04/20/2019 12:40 PM FRONT OFFICE ADMINISTRATOR Oxygen Saturation 99% 04/20/2019 12:40 PM FRONT OFFICE ADMINISTRATOR Inhaled Oxygen Concentration - - Weight 124.7 kg (275 lb) 04/20/2019 12:40 PM FRONT OFFICE ADMINISTRATOR Height 182.9 cm (6') 04/20/2019 12:40 PM FRONT OFFICE ADMINISTRATOR Body Mass Index 37.3 04/20/2019 12:40 PM FRONT OFFICE ADMINISTRATOR documented in this encounter Discharge Instructions * Discharge Instructions* Rui Mitchell MD - 04/20/2019 1:08 PM FRONT OFFICE ADMINISTRATOR - for diarrhea symptoms, to consider use of over the counter medication: imodium - please return to the emergency department if you have worsening symptoms including fever, abdominal pain, nausea, vomiting and or your stool output becomes red, black, white. Our practice is committed to providing you the very best in healthcare. We want to hear from you! Please fill out the survey you get from us. Your feedback is anonymous & helps us improve the patient experience for you and others in the community we serve. T OFFICE ADMINISTRATOR * Attachments The following attachments cannot be sent through Care Everywhere. * Diarrhea in Adolescents and Adults ([place] Citizen) documented in this encounter Medications at Time of Discharge potassium citrate CR 10 MEQ (1080 MG) tablet Take 1 tablet (10 mEq total) by mouth 3 (three) times daily with meals. atorvastatin 20 MG tablet Take 20 mg by mouth nightly at bedtime. 08/22/2020 levothyroxine 125 MCG tablet Take 125 mcg by mouth every morning. 08/22/2020 documented as of this encounter ED Notes * Rui Mitchell MD - 04/20/2019 12:47 PM CST indChief Complaint Chief Complaint Patient presents with ??? Indigestion History of Present Illness This is a 63yo male who presents for evaluation of intermittent loose stools for the last week. Approximately 1 week ago, he noted some belching, occasional sour taste with his burps, and then he started having some loose stools. His symptoms seemed to improve over the next few days. But then againover the last few days he had return of symptoms. Sometimes he feels bloated. He denies abdominal pain, fever, chills, nausea, vomiting. He has tried various medical interventions w/o symptom improvement including probiotics for 4 days, and a generic version of Maalox. He has not had no antibioticsin over 1 year. Medical History ALLERGIES: No Known Allergies MEDICATIONS: Prior to Admission medications Medication Sig Start Date End Date Taking? Authorizing Provider atorvastatin 20 MG tablet Take 20 mg by mouth nightly at bedtime. Yes Doc Abstract levothyroxine 125 MCG tablet Take 125 mcg by mouth every morning. Yes Doc Abstract potassium citrate CR 10 MEQ (1080 MG) tablet Take 10 mEq by mouth 3 (three) times daily with meals.Yes Doc Abstract PAST MEDICAL HISTORY: Past Medical History: Diagnosis Date ??? Disease of thyroid gland ??? Hypercholesterolemia ??? Kidney stones PAST SURGICAL HISTORY: History reviewed. No pertinent surgical history. FAMILY HISTORY: Family History Problem Relation Name Age of Onset ??? Diabetes Mother ??? Heart Disease Father SOCIAL HISTORY: Social History Tobacco Use ??? Smoking status: Never Smoker ??? Smokeless tobacco: Never Used Substance Use Topics ??? Alcohol use: Yes Comment: occasional 2-3 weeks ??? Drug use: No Review of Systems Review of Systems Constitutional: Negative for activity change, appetite change, chills, diaphoresis, fatigue, fever and unexpected weight change. HENT: Negative for ear pain and sore throat. Eyes: Negative for discharge. Respiratory: Negative for cough, chest tightness and shortness of breath. Cardiovascular: Negative for chest pain and leg swelling. Gastrointestinal: Positive for diarrhea. Negative for abdominal pain, blood in stool, constipation,nausea, rectal pain and vomiting. Endocrine: Negative for polydipsia and polyuria. Genitourinary: Negative for difficulty urinating, dysuria and frequency. Musculoskeletal: Negative for arthralgias and back pain. Skin: Negative for color change, pallor, rash and wound. Allergic/Immunologic: Negative for immunocompromised state. Neurological: Negative for weakness and light-headedness. Hematological: Negative for adenopathy. Does not bruise/bleed easily. Psychiatric/Behavioral: Negative for agitation. The patient is not nervous/anxious. Physical Exam Filed Vitals: 04/20/19 1240 BP: (!) 155/92 Pulse: 68 Resp: 16 Temp: 98.5 ??F (36.9 ??C) TempSrc: Tympanic SpO2: 99% Weight: 124.7 kg (275 lb) Height: 6' (1.829 m) Physical Exam Constitutional: He is oriented to person, place, and time. He appears well- developed and well-nourished. HENT: Head: Normocephalic and atraumatic. Right Ear: External ear normal. Left Ear: External ear normal. Eyes: Conjunctivae are normal. Neck: Neck supple. No JVD present. Cardiovascular: Normal rate, regular rhythm, normal heart sounds and intact distal pulses. Pulmonary/Chest: Effort normal. Abdominal: Soft. Bowel sounds are normal. He exhibits no distension and no mass. There is no tenderness. There is no rebound and no guarding. Genitourinary: Genitourinary Comments: deferred Musculoskeletal: Normal range of motion. He exhibits no edema or deformity. Neurological: He is alert and oriented to person, place, and time. No gross abnormalities Skin: Skin is warm and dry. Capillary refill takes less than 2 seconds. No rash noted. No erythema.No pallor. Psychiatric: He has a normal mood and affect. His behavior is normal. Judgment and thought content normal. Nursing note and vitals reviewed. Diagnostic Studies / Procedures ELECTROCARDIOGRAMS: No results found for this visit on 04/20/19. LABORATORY STUDIES: No results found for this visit on 04/20/19. IMAGING STUDIES No orders to display ED Course / Medical Decision Making VSS. Exam benign. He declines an ENT exam for his later mentioned sx of scratchy throat. I recommend use of [id number] Imodium. There is also possible consideration of [id number] Gas-X should he have gassy/bloated abdominal symptoms. He states he can follow-up with his PCP in the next few days. However, if symptoms worsen, he will benefit from an Emergency Department visit. Return precautions were discussed with and thoroughly understood by the patient. This patient will be considered a [facility] patient for today's encounter. Clinical Impression Diarrhea (Primary) Disposition: Discharge Rui Mitchell MD 04/20/19 1446 T OFFICE ADMINISTRATOR * Rui Mitchell MD - 04/20/2019 12:46 PM CST Chief Complaint Chief Complaint Patient presents with ??? Indigestion History of Present Illness Medical History ALLERGIES: No Known Allergies MEDICATIONS: Prior to Admission medications Medication Sig Start Date End Date Taking? Authorizing Provider atorvastatin 20 MG tablet Take 20 mg by mouth nightly at bedtime. Yes Doc Abstract levothyroxine 125 MCG tablet Take 125 mcg by mouth every morning. Yes Doc Abstract potassium citrate CR 10 MEQ (1080 MG) tablet Take 10 mEq by mouth 3 (three) times daily with meals.Yes Doc Abstract PAST MEDICAL HISTORY: Past Medical History: Diagnosis Date ??? Disease of thyroid gland ??? Hypercholesterolemia ??? Kidney stones PAST SURGICAL HISTORY: History reviewed. No pertinent surgical history. FAMILY HISTORY: Family History Problem Relation Name Age of Onset ??? Diabetes Mother ??? Heart Disease Father SOCIAL HISTORY: Social History Tobacco Use ??? Smoking status: Never Smoker ??? Smokeless tobacco: Never Used Substance Use Topics ??? Alcohol use: Yes Comment: occasional 2-3 weeks ??? Drug use: No Review of Systems Review of Systems Physical Exam Filed Vitals: 04/20/19 1240 BP: (!) 155/92 Pulse: 68 Resp: 16 Temp: 98.5 ??F (36.9 ??C) TempSrc: Tympanic SpO2: 99% Weight: 124.7 kg (275 lb) Height: 6' (1.829 m) Physical Exam Diagnostic Studies / Procedures ELECTROCARDIOGRAMS: No results found for this visit on 04/20/19. LABORATORY STUDIES: No results found for this visit on 04/20/19. IMAGING STUDIES No orders to display ED Course / Medical Decision Making Clinical Impression None Disposition: Data Unavailable Rui Mitchell MD 04/20/19 1447 T OFFICE ADMINISTRATOR * Johanna Brown RN - 04/20/2019 12:38 PM CST Pt to triage c/o sour stomach x 1 week. Pt states lots of gas both directions. Pt denies anything helping it or making it worse. Pt states some loose stools. Pt states stomach ache, then will go awayand get gassy feeling. Pt states taking imodium and probiotics with no relief. T OFFICE ADMINISTRATOR documented in this encounter Plan of Treatment Upcoming Encounters Date Type Department Care Team (Late st Contact Info) Description 08/05/2024 10:00 AM CDT Office Visit [facility] Family & Internal Medicine - [place] [address] [place] [address] [place] [address] [place] [address] 02/15/2025 10:45 AM FRONT OFFICE ADMINISTRATOR Office Visit [place] [facility] [address] [place], [place] [id number] Dale Shahid MD [facility], [address] [place] [address] documented as of this encounter Visit Diagnoses Diagnosis Diarrhea- Primary documented in this encounter Care Teams Food Tester Relationship Specialty Start Date End Date José Schaffer MD PCP - General INTERNAL MEDICINE 04/20/19 12/12/20 documented as of this encounter
--- OUTSIDE RECORDS SUMMARY | 2024-04-11 05:37 | XMS_ITS | Encounter Summary ---
Author Organization [facility] Address [address] [place] [address]. [place] [address] [place] [address] Care Team Providers Care Restaurant Front Manager Name Role Phone Unavailable Primary Care Provider Unavailabl e Encounter Details Date Type Department Care Team (Late st Contact Info) Description 06/14/2000 Abstract [facility] CONVERSION [address] [place] [address] , Generic ConversionMD Social History Tobacco Use Types Packs/Day Years Used Date Smoking Tobacco: Never Assessed Sex and Gender Information Value Date Recorded Sex Assigned at Not on file Legal Sex Male 7:33 PM CDT Gender Identity Male 06/12/2021 5:16 AM ADULT MANAGER Sexual Orientation Straight 06/28/2021 10 :21 AM CDT documented as of this encounter Plan of Treatment Upcoming Encounters Date Type Department Care Team (Late st Contact Info) Description 08/05/2024 10:00 AM CDT Office Visit [facility] Family & Internal Medicine [facility] [address] [place] [address] [place] [address] [place] [address] 02/15/2025 10:45 AM ADULT MANAGER Office Visit [place] [facility] [address] [place] [address] Dale Shahid MD [facility], [address] [place] [address] documented as of this encounter Visit Diagnoses Not on filedocumented in this encounter
--- OUTSIDE RECORDS SUMMARY | 2024-04-11 05:37 | XMS_ITS | Encounter Summary ---
Author Organization [facility] Address [address] [place] [address]. [place] [address] [place] [address] Care Team Providers Care Plastic Cnc Machine Operator Name Role Phone Unavailable Primary Care Provider Unavailabl e Encounter Details Date Type Department Care Team (Late st Contact Info) Description 04/25/2002 Abstract [facility] CONVERSION [address] [place] [address] , Generic ConversionMD Social History Tobacco Use Types Packs/Day Years Used Date Smoking Tobacco: Never Assessed Sex and Gender Information Value Date Recorded Sex Assigned at Not on file Legal Sex Male 7:33 PM CDT Gender Identity Male 06/12/2021 5:16 AM WORKERS' COMPENSATION MAGISTRATE Sexual Orientation Straight 06/28/2021 10 :21 AM CDT documented as of this encounter Plan of Treatment Upcoming Encounters Date Type Department Care Team (Late st Contact Info) Description 08/05/2024 10:00 AM CDT Office Visit [facility] Medical [facility] Family & Internal Medicine [facility] [address] [place] [address] [place] [address] [place] [address] 02/15/2025 10:45 AM WORKERS' COMPENSATION MAGISTRATE Office Visit [place] [facility] [address] [place] [address] Dale Shahid MD [facility], [address] [place] [address] documented as of this encounter Visit Diagnoses Not on filedocumented in this encounter
--- OUTSIDE RECORDS SUMMARY | 2024-04-11 05:37 | XMS_ITS | Encounter Summary ---
Author Organization [facility] Address [address] [place] [address]. [place] [address] [place] [address] Care Team Providers Care Detention Deputy Name Role Phone Unavailable Primary Care Provider Unavailabl e Encounter Details Date Type Department Care Team (Late st Contact Info) Description 01/01/2011 Abstract [facility] [address] [place] [address] Henry Amaya MD [place] [address] [place] [address] Social History Tobacco Use Types Packs/Day Years Used Date Smoking Tobacco: Never Assessed Sex and Gender Information Value Date Recorded Sex Assigned at Not on file Legal Sex Male 7:33 PM CDT Gender Identity Male 06/12/2021 5:16 AM IT COORDINATOR Sexual Orientation Straight 06/28/2021 10 :21 AM CDT documented as of this encounter Plan of Treatment Upcoming Encounters Date Type Department Care Team (Late st Contact Info) Description 08/05/2024 10:00 AM CDT Office Visit [facility] Medical [facility] Family & Internal Medicine [facility] [address] [place] [address] [place] [address] [place], [place] [id number] 02/15/2025 10:45 AM IT COORDINATOR Office Visit [facility] [address] [place] [address] Dale Shahid MD [facility], [address] [place] [address] documented as of this encounter Visit Diagnoses Diagnosis Calculus of kidney documented in this encounter
--- OUTSIDE RECORDS SUMMARY | 2024-04-11 05:37 | XMS_ITS | Encounter Summary ---
Author Organization [facility] Address [address] [place] [address]. [place] [address] [place] [address] Care Team Providers Care Seat Covers Trimmer Name Role Phone Unavailable Primary Care Provider Unavailabl e Encounter Details Date Type Department Care Team (Late st Contact Info) Description 05/27/1998 Abstract [facility] CONVERSION [address] [place] [address] , Generic MD Kandi Social History Tobacco Use Types Packs/Day Years Used Date Smoking Tobacco: Never Assessed Sex and Gender Information Value Date Recorded Sex Assigned at Not on file Legal Sex Male 7:33 PM CDT Gender Identity Male 06/12/2021 5:16 AM CHAIN PERSON Sexual Orientation Straight 06/28/2021 10 :21 AM CDT documented as of this encounter Plan of Treatment Upcoming Encounters Date Type Department Care Team (Late st Contact Info) Description 08/05/2024 10:00 AM CDT Office Visit [facility] Medical Group Family & Internal Medicine [facility] [address] [place] [address] [place] [address] [place] [address] 02/15/2025 10:45 AM CHAIN PERSON Office Visit [place] [facility] [address] [place] [address] Dale Shahid MD [facility], [address] [place] [address] documented as of this encounter Visit Diagnoses Not on filedocumented in this encounter
--- OUTSIDE RECORDS SUMMARY | 2024-04-11 05:37 | XMS_ITS | Encounter Summary ---
Author Organization [facility] Address [address] [place] [address]. [place], [place] [address] [place] [address] Care Team Providers Care Operations Specialist Name Role Phone José Schaffer MD Primary Care Provider Maty ilshannan Encounter Details Date Type Department Care Team (Latest Contact Info) Description 07/30/2019 Travel Social History Tobacco Use Types Packs/Day Years Used Date Smoking Tobacco: Never Smokeless Tobacco: Never Alcohol Use Standard Drinks/Week Comments Yes 0 (1 standard drink = 0.6 oz pur e alcohol) occasional 2-3 weeks Sex and Gender Information Value Date Recorded Sex Assigned at Not on file Legal Sex Male 7:33 PM CDT Gender Identity Male 06/12/2021 5:16 AM CUSTOMER SUCCESS ASSOCIATE Sexual Orientation Straight 06/28/2021 10 :21 AM CDT COVID-19 Exposure Response Date Recorded In the last month, have you been in contact with someone who was confirmed or suspected to have Coronavirus / COVID-19? No / Unsure 07/30/2019 5:27 PM CDT documented as of this encounter Plan of Treatment Upcoming Encounters Date Type Department Care Team (Late st Contact Info) Description 08/05/2024 10:00 AM CDT Office Visit [facility] Medical [facility] Family & Internal Medicine [facility] [address] [place] [address] [place] [address] [place] [address] 02/15/2025 10:45 AM CUSTOMER SUCCESS ASSOCIATE Office Visit [place] [facility] [address] [place] [address] Dale Shahid MD [facility], [address] [place] [address] documented as of this encounter Visit Diagnoses Not on filedocumented in this encounter Care Teams Operations Specialist Relationship Specialty Start Date End Date José Schaffer MD PCP - General INTERNAL MEDICINE 04/20/19 12/12/20 documented as of this encounter
--- OUTSIDE RECORDS SUMMARY | 2024-04-11 05:37 | XMS_ITS | Encounter Summary ---
Author Organization [facility] Address [address] [place] [address]. [place] [address] [place] [address] Care Team Providers Care Market Superintendent Name Role Phone Unavailable Primary Care Provider Unavailabl e Encounter Details Date Type Department Care Team (Late st Contact Info) Description 02/18/2014 Abstract [facility] Care [address] [place], [place] [id number] Social History Tobacco Use Types Packs/Day Years Used Date Smoking Tobacco: Never Assessed Sex and Gender Information Value Date Recorded Sex Assigned at Not on file Legal Sex Male 7:33 PM CDT Gender Identity Male 06/12/2021 5:16 AM PROCESSING ENGINEER Sexual Orientation Straight 06/28/2021 10 :21 AM CDT documented as of this encounter Plan of Treatment Upcoming Encounters Date Type Department Care Team (Late st Contact Info) Description 08/05/2024 10:00 AM CDT Office Visit [facility] Medical Group Family & Internal Medicine [facility] [address] [place] [address] [place] [address] [place] [address] 02/15/2025 10:45 AM PROCESSING ENGINEER Office Visit [place] [facility] [place] [address] [place] [address] Dale Shahid MD [facility], [address] [place] [address] documented as of this encounter Visit Diagnoses Diagnosis Urinary tract infection Urinary tract infection, site not specified documented in this encounter
--- OUTSIDE RECORDS SUMMARY | 2024-04-11 05:37 | XMS_ITS | Encounter Summary ---
Author Organization [facility] Address [address] [place] [address]. [place], [place] [address] [place] [address] Care Team Providers Care Assessment Clinician Name Role Phone Taj Schaffer MD Primary Care Provider Unava ilable Reason for Visit * Reason Comments Sore Throat Encounter Details Date Type Department Care Team (Late st Contact Info) Description 08/31/2019 6:09 PM CDT - 08/31/2019 6:24 PM CDT Emergency [facility] Emergency Room [id number] [place] [address] Cleve Stroud DO Sore Throat Discharge Disposition: Home or Self Care (Routine [...] have Coronavirus / COVID-19? No / Unsure 08/31/2019 5:14 PM CDT documented as of this encounter Last Filed Vital Signs Vital Sign Reading Time Taken Comments Blood Pressure 143/85 08/31/2019 6:07 PM CDT Pulse 79 08/31/2019 6:07 PM CDT Temperature 37.2 ??C (99 ??F) 08/31/2019 6:07 PM CDT Respiratory Rate 18 08/31/2019 6:07 PM CDT Oxygen Saturation 95% 08/31/2019 6:07 PM CDT Inhaled Oxygen Concentration - - Weight 124.7 kg (275 lb) 08/31/2019 6:07 PM CDT Height 182.9 cm (6') 08/31/2019 6:07 PM CDT Body Mass Index 37.3 08/31/2019 6:07 PM CDT documented in this encounter Discharge Instructions * Attachments The following attachments cannot be sent through Care Everywhere. * Sinusitis in Adults (Thai) documented in this encounter Medications at Time of Discharge potassium citrate CR 10 MEQ (1080 MG) tablet Take 1 tablet (10 mEq total) by mouth 3 (three) times daily with meals. amoxicillin-clavu lanate (AUGMENTIN) 875-125 MG tablet Take 1 tablet (875 mg total) by mouth 2 (two) times daily for 10 days. 20 tablet 08/31/2019 09/10/2019 atorvastatin 20 MG tablet Take 20 mg by mouth nightly at bedtime. 08/22/2020 levothyroxine 125 MCG tablet Take 125 mcg by mouth every morning. 08/22/2020 documented as of this encounter ED Notes * DO Francisco Catalan 08/31/2019 6:15 PM CDT [place], [place] EMERGENCY DEPARTMENT ENCOUNTER HISTORICAL INFORMATION Primary Care Doctor: TAJ SCHAFFER MD Patient information was obtained primarily from the patient, nursing notes History/Exam limitations: None Provider at Bedside Date/Time Event User Comments 08/31/19 181 Provider at Bedside Assessing Patient CLEVE STROUD CHIEF COMPLAINT Sore Throat HPI Radha Zhang is a 63-year-old male who presents with sore throat and R ear pain worsening over last week. PMHx HLD, renal stone. Started with mild sore throat which has gotten worse and in the last couple days he has noted pain and fullness sensation to R ear. No fevers, no cough, no SOB. H/o sinusitis years ago that felt similar. PAST MEDICAL HISTORY Past Medical History: Diagnosis Date ??? Disease of thyroid gland ??? Hypercholesterolemia ??? Kidney stones SURGICAL HISTORY Past Surgical History: Procedure Laterality Date ??? LITHOTRIPSY CURRENT MEDICATIONS No current facility-administered medications for this encounter. Current Outpatient Medications: ??? amoxicillin-clavulanate (AUGMENTIN) 875-125 MG tablet, Take 1 tablet (875 mg total) by mouth 2 (two) times daily for 10 days., Disp: 20 tablet, Rfl: 0 ??? atorvastatin 20 MG tablet, Take 20 mg by mouth nightly at bedtime., Disp: , Rfl: ??? levothyroxine 125 MCG tablet, Take 125 mcg by mouth every morning., Disp: , Rfl: ??? potassium citrate CR 10 MEQ (1080 MG) tablet, Take 10 mEq by mouth 3 (three) times daily with meals., Disp: , Rfl: ALLERGIES No Known Allergies FAMILY HISTORY Family History Problem Relation Name Age of Onset ??? Diabetes Mother ??? Heart Disease Father SOCIAL HISTORY Social History Socioeconomic History ??? Marital status: Spouse name: Not on file ??? Number of children: Not on file ??? Years of education: Not on file ??? Highest education level: Not on file Occupational History ??? Not on file Social Needs ??? Financial resource strain: Not on file ??? Food insecurity: Worry: Not on file Inability: Not on file ??? Transportation needs: Medical: Not on file Non-medical: Not on file Tobacco Use ??? Smoking status: Never Smoker ??? Smokeless tobacco: Never Used Substance and Sexual Activity ??? Alcohol use: Yes Comment: occasional 2-3 weeks ??? Drug use: No ??? Sexual activity: Not on file Lifestyle ??? Physical activity: Days per week: Not on file Minutes per session: Not on file ??? Stress: Not on file Relationships ??? Social connections: Talks on phone: Not on file Gets together: Not on file Attends amish service: Not on file Active member of club or organization: Not on file Attends meetings of clubs or organizations: Not on file Relationship status: Not on file ??? Intimate partner violence: Fear of current or ex partner: Not on file Emotionally abused: Not on file Physically abused: Not on file Forced sexual activity: Not on file Other Topics Concern ??? Not on file Social History Narrative ??? Not on file REVIEW OF SYSTEMS Constitutional: no fevers, no chills, no generalized weakness Eyes: no changes in vision HEENT: no nasal congestion, +sore throat Respiratory: No shortness of breath, no cough, no wheeze Cardiovascular: No chest pain, no edema Gastrointestinal: No abdominal pain, no nausea, no vomiting, no diarrhea, no constipation Genitourinary: No dysuria, no hematuria Musculoskeletal: no arthralgia, no myalgia Skin: no rash Neurological: no headache, no focal weakness, no numbness PHYSICAL EXAM VITAL SIGNS: Filed Vitals: 08/31/19 1807 BP: 143/85 Pulse: 79 Resp: 18 Temp: 99 ??F (37.2 ??C) TempSrc: Temporal SpO2: 95% Weight: 124.7 kg (275 lb) Height: 6' (1.829 m) Constitutional: no acute distress, alert, no signs of trauma HEENT: PER, moist oral mucosa, pharyngeal erythema without exudates or swelling, no uvula shift, mild erythema of right TM without bulging, left TM normal appearing Neck: trachea-midline Respiratory: no respiratory distress, speaking in full sentences Cardiovascular: well-perfused Musculoskeletal: no overt deformities Skin: grossly intact, warm, dry Neurologic: alert Psych: cooperative, appropriate mood and affect Pulse Oximetry Interpretation Saturation: 95% Oxygen Delivery: room air Interpretation: normal DDX/MDM Ddx: sinusitis, URI, viral infection Will treat for sinusitis, PMD f/u FINAL IMPRESSION 1. Sinusitis Patient's workup is negative for emergent pathology requiring hospitalization or higher level of care. Patient is to follow-up with their primary physician for further workup and management. I discussed specific discharge instructions with the patient as well as precautions for return to the ED. Patient vocalizes understanding of plan and return precautions. Educational information with return precautions was also provided to the patient. DISPO home DO Cleve CATALAN DO 08/31/19 182 * Dea Blair RN - 08/31/2019 6:08 PM CDT Right ear and throat pain. No fever. documented in this encounter Plan of Treatment Upcoming Encounters Date Type Department Care Team (Late st Contact Info) Description 08/05/2024 10:00 AM CDT Office Visit [facility] Family & Internal Medicine [facility] [address] [place] [address] [place] [address] [place] [address] 02/15/2025 10:45 AM FABRICATION MANAGER Office Visit [facility] [address] [place] [address] Dale Shahid MD [facility], [address] [place] [address] documented as of this encounter Visit Diagnoses Diagnosis Sinusitis- Primary Unspecified sinusitis (chronic) documented in this encounter Care Teams Assessment Clinician Relationship Specialty Start Date End Date Taj Schaffer MD PCP - General INTERNAL MEDICINE 04/20/19 12/12/20 documented as of this encounter
--- OUTSIDE RECORDS SUMMARY | 2024-04-11 05:37 | XMS_ITS | Encounter Summary ---
Author Organization [facility] Address [address] [place] [address]. [place], [place] [address] [place] [address] Care Team Providers Care Hematology Supervisor Name Role Phone José Schaffer MD Primary Care Provider Unava ilable Reason for Visit * Reason Comments Ultrasound (SCAN) Image (SCAN) Encounter Details Date Type Department Care Team ([facility] Contact Info) Description 08/30/2015 Scan HEALTH INFO SRVCS Scanned, Documents Ultrasound (SCAN); Image (SCAN) Social History Tobacco Use Types Packs/Day Years Used Date Smoking Tobacco: Never Assessed PHQ-2 Answer Date Recorded PHQ-2 Score - If the patient scores above 3, please move on to questions 3-9 0 08/22/2020 Sex and Gender Information Value Date Recorded Sex Assigned at Not on file Legal Sex Male 7:33 PM CDT Gender Identity Male 06/12/2021 5:16 AM WIRELESS TELEGRAPHER Sexual Orientation Straight 06/28/2021 10 :21 AM CDT COVID-19 Exposure Response Date Recorded In the last month, have you been in contact with someone who was confirmed or suspected to have Coronavirus / COVID-19? No / Unsure 08/22/2020 7:54 AM CDT documented as of this encounter Plan of Treatment Upcoming Encounters Date Type Department Care Team ([facility] Contact Info) Description 08/05/2024 10:00 AM CDT Office Visit [facility] Family & Internal Medicine [facility] [address] [place] [address] Amado [place] [id number] [place] [address] 02/15/2025 10:45 AM WIRELESS TELEGRAPHER Office Visit [facility] [facility] [address] [place] [address] Dale Shahid MD Three [facility] [address] [place] [address] documented as of this encounter Procedures Procedure Name Priority Date/Time Associated Diagnosis Comments IMAGE GENERIC 08/30/2015 ULTRASOUND GENERIC (SCAN ORDER) 08/30/2015 documented in this encounter Results * IMAGE GENERIC (08/30/2015) Anatomical Region Laterality Modality Other 08/30/2015 Narrative 08/30/2015 Ordered by an unspecified provider. us Documents Scanned SCANNING Final Result * ULTRASOUND GENERIC (08/30/2015) Anatomical Region Laterality Modality Other 08/30/2015 Narrative 08/30/2015 Ordered by an unspecified provider. us Documents Scanned SCANNING Final Result documented in this encounter Visit Diagnoses Not on filedocumented in this encounter Care Teams Hematology Supervisor Relationship Specialty Start Date End Date José Schaffer MD PCP - General INTERNAL MEDICINE 04/20/19 12/12/20 documented as of this encounter
--- OUTSIDE RECORDS SUMMARY | 2024-04-11 05:37 | XMS_ITS | Encounter Summary ---
Author Organization [facility] Address [address] [place] [address]. [place] [address] [place] [address] Care Team Providers Care Journeyman Machinist Name Role Phone Unavailable Primary Care Provider Unavailabl e Encounter Details Date Type Department Care Team (Late st Contact Info) Description 03/30/1994 Abstract [facility] CONVERSION [address] [place] [address] , Generic MD Kandi Social History Tobacco Use Types Packs/Day Years Used Date Smoking Tobacco: Never Assessed Sex and Gender Information Value Date Recorded Sex Assigned at Not on file Legal Sex Male 7:33 PM CDT Gender Identity Male 06/12/2021 5:16 AM SUTURE WINDER HAND Sexual Orientation Straight 06/28/2021 10 :21 AM CDT documented as of this encounter Plan of Treatment Upcoming Encounters Date Type Department Care Team (Late st Contact Info) Description 08/05/2024 10:00 AM CDT Office Visit [facility] Family & Internal Medicine [facility] [address] [place] [address] [place] [address] [place] [address] 02/15/2025 10:45 AM SUTURE WINDER HAND Office Visit [facility] [address] [place] [address] Dale Shahid MD [facility], [address] [place] [address] documented as of this encounter Visit Diagnoses Not on filedocumented in this encounter
--- OUTSIDE RECORDS SUMMARY | 2024-04-11 05:37 | XMS_ITS | Encounter Summary ---
Author Organization [facility] Address [address] [place] [address]. [place] [address] [place] [address] Care Team Providers Care Observation Assistant Name Role Phone Unavailable Primary Care Provider Unavailabl e Encounter Details Date Type Department Care Team (Late st Contact Info) Description 03/04/2001 Abstract [facility] CONVERSION [address] [place] [address] , Generic MD Kandi Social History Tobacco Use Types Packs/Day Years Used Date Smoking Tobacco: Never Assessed Sex and Gender Information Value Date Recorded Sex Assigned at Not on file Legal Sex Male 7:33 PM CDT Gender Identity Male 06/12/2021 5:16 AM TELEPATHIST Sexual Orientation Straight 06/28/2021 10 :21 AM CDT documented as of this encounter Plan of Treatment Upcoming Encounters Date Type Department Care Team (Late st Contact Info) Description 08/05/2024 10:00 AM CDT Office Visit [facility] Family & Internal Medicine [facility] [address] [place] [address] [place] [address] [place] [address] 02/15/2025 10:45 AM TELEPATHIST Office Visit [facility] [address] [place] [address] Dale Shahid MD [facility], [address] [place] [address] documented as of this encounter Visit Diagnoses Not on filedocumented in this encounter
--- OUTSIDE RECORDS SUMMARY | 2024-04-11 05:37 | XMS_ITS | Encounter Summary ---
Author Organization [facility] Address [address] [place] [address]. [place], [place] [address] [place] [address] Care Team Providers Care Jewelry Bearing Maker Name Role Phone José Schaffer MD Primary Care Provider Unava ilable Reason for Visit * Reason Comments Image (SCAN) Encounter Details Date Type Department Care Team (Latest Contact Info) Description 07/14/2015 Scan HEALTH INFO SRVCS Scanned, Documents Image (SCAN) [...] Gender Identity Male 06/12/2021 5:16 AM CREPE SOLE SCOURER Sexual Orientation Straight 06/28/2021 10 :21 AM [...] HOSPITAL Medical Group Family & Internal Medicine [facility] [id number] [place] [address] Amado Mathew PA [address] [place] [address] 02/15/2025 10:45 AM CREPE SOLE SCOURER Office Visit [facility] [address] [place] [address] Dale Shahid MD Three [facility]., [address] [place] [address] documented as of this encounter Procedures Procedure Name Priority Date/Time Associated Diagnosis Comments IMAGE GENERIC 07/14/2015 IMAGE GENERIC 07/14/2015 documented in this encounter Results * IMAGE GENERIC (07/14/2015) Anatomical Region Laterality Modality Other 07/14/2015 Narrative 07/14/2015 Ordered by an unspecified provider. us Documents Scanned SCANNING Final Result * IMAGE GENERIC (07/14/2015) Anatomical Region Laterality Modality Other 07/14/2015 Narrative 07/14/2015 Ordered by an unspecified provider. us Documents Scanned SCANNING Final Result documented in this encounter Visit Diagnoses Not on filedocumented in this encounter Care Teams Jewelry Bearing Maker Relationship Specialty Start Date End Date José Schaffer MD PCP - General INTERNAL MEDICINE 04/20/19 12/12/20 documented as of this encounter
--- OUTSIDE RECORDS SUMMARY | 2024-04-11 05:37 | XMS_ITS | Encounter Summary ---
Author Organization [facility] Address [address] [place] [address]. [place], [place] [address] [place] [address] Care Team Providers Care Bat Person Name Role Phone José Schaffer MD Primary Care Provider Unava ilable Reason for Visit * Reason Comments Lab (SCAN) Encounter Details Date Type Department Care Team (Latest Contact Info) Description 05/29/2016 Scan [facility] HEALTH INFO SRVCS Scanned, Documents [...] CDT Gender Identity Male 06/12/2021 5:16 AM ASPARAGUS BUNCHER Sexual Orientation Straight 06/28/2021 10 :21 AM [...] Description 08/05/2024 10:00 AM CDT Office Visit [facility] Family & Internal Medicine [address] [address] Amado Mathew PA [address] [place] [address] 02/15/2025 10:45 AM ASPARAGUS BUNCHER Office Visit [facility] [address] [place] [address] Dale Shahid MD Three [facility] [address] [place] [address] documented as of this encounter Procedures Procedure Name Priority Date/Time Associated Diagnosis Comments OUTSIDE LAB (SCAN ORDER) 05/29/2016 documented in this encounter Results * OUTSIDE LAB (SCAN) (05/29/2016) 05/29/2016 Narrative 05/29/2016 Ordered by an unspecified provider. us Documents Scanned SCANNING Final Result documented in this encounter Visit Diagnoses Not on filedocumented in this encounter Care Teams Bat Person Relationship Specialty Start Date End Date José Schaffer MD PCP - General INTERNAL MEDICINE 04/20/19 12/12/20 documented as of this encounter
--- OUTSIDE RECORDS SUMMARY | 2024-04-11 05:37 | XMS_ITS | Encounter Summary ---
Author Organization [facility] Address [address] [place] [address]. [place] [address] [place] [address] Care Team Providers Care Junior Graphic Designer Name Role Phone Unavailable Primary Care Provider Unavailabl e Encounter Details Date Type Department Care Team (Late st Contact Info) Description 08/24/2016 Abstract [facility] Emergency Room [address] [place] [address] Social History Tobacco Use Types Packs/Day Years Used Date Smoking Tobacco: Never Assessed Sex and Gender Information Value Date Recorded Sex Assigned at Not on file Legal Sex Male 7:33 PM CDT Gender Identity Male 06/12/2021 5:16 AM TRANSPORTATION MECHANIC Sexual Orientation Straight 06/28/2021 10 :21 AM CDT documented as of this encounter Plan of Treatment Upcoming Encounters Date Type Department Care Team (Late st Contact Info) Description 08/05/2024 10:00 AM CDT Office Visit [facility] Family & Internal Medicine [facility] [address] [place] [address] [place] [address] [place] [address] 02/15/2025 10:45 AM TRANSPORTATION MECHANIC Office Visit [facility] [address] [place] [address] Dale Shahid MD [facility], [address] [place] [address] documented as of this encounter Visit Diagnoses Diagnosis Injury of right lower leg Injury, other and unspecified, knee, leg, ankle, and foot documented in this encounter
--- OUTSIDE RECORDS SUMMARY | 2024-04-11 05:37 | XMS_ITS | Encounter Summary ---
Author Organization [facility] Address [address] [place] [address]. [place] [address] [place] [address] Care Team Providers Care High School History Teacher Name Role Phone Unavailable Primary Care Provider Unavailabl e Encounter Details Date Type Department Care Team (Late st Contact Info) Description 05/16/1999 Abstract [facility] CONVERSION [address] [place] [address] , Generic ConversionMD Social History Tobacco Use Types Packs/Day Years Used Date Smoking Tobacco: Never Assessed Sex and Gender Information Value Date Recorded Sex Assigned at Not on file Legal Sex Male 7:33 PM CDT Gender Identity Male 06/12/2021 5:16 AM PROMOTIONAL MARKETING AGENT Sexual Orientation Straight 06/28/2021 10 :21 AM CDT documented as of this encounter Plan of Treatment Upcoming Encounters Date Type Department Care Team (Late st Contact Info) Description 08/05/2024 10:00 AM CDT Office Visit [facility] Family & Internal Medicine [facility] [address] [place] [address] [place] [address] [place] [address] 02/15/2025 10:45 AM PROMOTIONAL MARKETING AGENT Office Visit [place] [facility] [address] [place] [address] Dale Shahid MD [facility], [address] [place] [address] documented as of this encounter Visit Diagnoses Not on filedocumented in this encounter
--- OUTSIDE RECORDS SUMMARY | 2024-04-11 05:37 | XMS_ITS | Encounter Summary ---
Author Organization [facility] Address [address] [place] [address]. [place] [address] [place] [address] Care Team Providers Care Manager Specialty Name Role Phone Unavailable Primary Care Provider Unavailabl e Encounter Details Date Type Department Care Team (Late st Contact Info) Description 11/26/[address] [facility] CONVERSION [address] [place] [address] Thor Donis MD Social History Tobacco Use Types Packs/Day Years Used Date Smoking Tobacco: Never Assessed Sex and Gender Information Value Date Recorded Sex Assigned at Not on file Legal Sex Male 7:33 PM CDT Gender Identity Male 06/12/2021 5:16 AM RN TRANSITIONAL CARE Sexual Orientation Straight 06/28/2021 10 :21 AM CDT documented as of this encounter Plan of Treatment Upcoming Encounters Date Type Department Care Team (Late st Contact Info) Description 08/05/2024 10:00 AM CDT Office Visit [facility] Family & Internal Medicine [facility] [address] [place] [address] [place] [address] [place], [place] [id number] 02/15/2025 10:45 AM RN TRANSITIONAL CARE Office Visit [facility] [place] [address] [place] [address] Dale Shahid MD [facility], [address] [place] [address] documented as of this encounter Visit Diagnoses Not on filedocumented in this encounter
--- OUTSIDE RECORDS SUMMARY | 2024-04-11 05:37 | XMS_ITS | Encounter Summary ---
Author Organization [facility] Address [address] [place] [address]. [place] [address] [place] [address] Care Team Providers Care Pillow Cleaner Name Role Phone Unavailable Primary Care Provider Unavailabl e Encounter Details Date Type Department Care Team (Late st Contact Info) Description 08/08/2006 Abstract [facility] CONVERSION [address] [place] [address] Lynn Leger MD [address] [place] [address] Social History Tobacco Use Types Packs/Day Years Used Date Smoking Tobacco: Never Assessed Sex and Gender Information Value Date Recorded Sex Assigned at Not on file Legal Sex Male 7:33 PM CDT Gender Identity Male 06/12/2021 5:16 AM SUPERVISOR THROWING DEPARTMENT Sexual Orientation Straight 06/28/2021 10 :21 AM CDT documented as of this encounter Plan of Treatment Upcoming Encounters Date Type Department Care Team (Late st Contact Info) Description 08/05/2024 10:00 AM CDT Office Visit [facility] Family & Internal Medicine [facility] [address] [place] [address] [place] [address] [place], [place] [id number] 02/15/2025 10:45 AM SUPERVISOR THROWING DEPARTMENT Office Visit [facility] [address] [address] Dale Shahid MD [facility], [address] [place] [address] documented as of this encounter Visit Diagnoses Not on filedocumented in this encounter
--- OUTSIDE RECORDS SUMMARY | 2024-04-11 05:37 | XMS_ITS | Encounter Summary ---
Author Organization [facility] Address [address] [place] [address]. [place] [address] [place] [address] Care Team Providers Care Gsa Coordinator Name Role Phone Unavailable Primary Care Provider Unavailabl e Encounter Details Date Type Department Care Team (Late st Contact Info) Description 04/06/2011 Abstract [facility] Diagnostic Imaging [address] [place] [address] Thor Donis MD Social History Tobacco Use Types Packs/Day Years Used Date Smoking Tobacco: Never Assessed Sex and Gender Information Value Date Recorded Sex Assigned at Not on file Legal Sex Male 7:33 PM CDT Gender Identity Male 06/12/2021 5:16 AM TELEVISION SERVICER Sexual Orientation Straight 06/28/2021 10 :21 AM CDT documented as of this encounter Plan of Treatment Upcoming Encounters Date Type Department Care Team (Late st Contact Info) Description 08/05/2024 10:00 AM CDT Office Visit [facility] Medical Group Family & Internal Medicine [facility] [id number] [place] [address] [place] [address] [place] [address] 02/15/2025 10:45 AM TELEVISION SERVICER Office Visit [facility] [place] [id number] [place] [address] Dale Shahid MD [facility], [address] [place] [facility] [place] [address] documented as of this encounter Visit Diagnoses Diagnosis Cough documented in this encounter
--- OUTSIDE RECORDS SUMMARY | 2024-04-11 05:37 | XMS_ITS | Encounter Summary ---
Author Organization [facility] Address [address] [place] [address]. [place] [address] [place] [address] Care Team Providers Care Title Closer Name Role Phone Unavailable Primary Care Provider Unavailabl e Encounter Details Date Type Department Care Team (Late st Contact Info) Description 09/28/2009 Abstract [facility] CONVERSION [address] [place] [address] José Schaffer MD Social History Tobacco Use Types Packs/Day Years Used Date Smoking Tobacco: Never Assessed Sex and Gender Information Value Date Recorded Sex Assigned at Not on file Legal Sex Male 7:33 PM CDT Gender Identity Male 06/12/2021 5:16 AM FIREWALL SECURITY ENGINEER Sexual Orientation Straight 06/28/2021 10 :21 AM CDT documented as of this encounter Plan of Treatment Upcoming Encounters Date Type Department Care Team (Late st Contact Info) Description 08/05/2024 10:00 AM CDT Office Visit [facility] Medical Group Family & Internal Medicine [facility] [address] [place] [address] [place] [address] [place], [place] [id number] 02/15/2025 10:45 AM FIREWALL SECURITY ENGINEER Office Visit [facility] [place] [address] [place] [address] Dale Shahid MD [facility] [place], [address] [place] [address] documented as of this encounter Visit Diagnoses Not on filedocumented in this encounter
--- OUTSIDE RECORDS SUMMARY | 2024-04-11 05:37 | XMS_ITS | Encounter Summary ---
Author Organization [facility] Address [address] [place] [address]. [place] [address] [place] [address] Care Team Providers Care Commodity Director Name Role Phone Unavailable Primary Care Provider Unavailabl e Encounter Details Date Type Department Care Team (Late st Contact Info) Description 05/09/2001 Abstract [facility] CONVERSION [address] [place] [address] , Generic ConversionMD Social History Tobacco Use Types Packs/Day Years Used Date Smoking Tobacco: Never Assessed Sex and Gender Information Value Date Recorded Sex Assigned at Not on file Legal Sex Male 7:33 PM CDT Gender Identity Male 06/12/2021 5:16 AM CONTROL INTEGRATION ENGINEER Sexual Orientation Straight 06/28/2021 10 :21 AM CDT documented as of this encounter Plan of Treatment Upcoming Encounters Date Type Department Care Team (Late st Contact Info) Description 08/05/2024 10:00 AM CDT Office Visit [facility] Medical Group Family & Internal Medicine [facility] [address] [place] [address] [place] [address] [place] [address] 02/15/2025 10:45 AM CONTROL INTEGRATION ENGINEER Office Visit [facility] [address] [place] [address] Dale Shahid MD [facility], [address] [place] [address] documented as of this encounter Visit Diagnoses Not on filedocumented in this encounter
--- OUTSIDE RECORDS SUMMARY | 2024-04-11 05:37 | XMS_ITS | Encounter Summary ---
Author Organization [facility] Address [address] [place] [address]. [place] [address] [place] [address] Care Team Providers Care Registered Occupational Therapist Name Role Phone Unavailable Primary Care Provider Unavailabl e Encounter Details Date Type Department Care Team (Late st Contact Info) Description 06/16/1999 Abstract [facility] CONVERSION [address] [place] [address] , Generic ConversionMD Social History Tobacco Use Types Packs/Day Years Used Date Smoking Tobacco: Never Assessed Sex and Gender Information Value Date Recorded Sex Assigned at Not on file Legal Sex Male 7:33 PM CDT Gender Identity Male 06/12/2021 5:16 AM ABATTOIR MANAGER Sexual Orientation Straight 06/28/2021 10 :21 AM CDT documented as of this encounter Plan of Treatment Upcoming Encounters Date Type Department Care Team (Late st Contact Info) Description 08/05/2024 10:00 AM CDT Office Visit [facility] Medical Group Family & Internal Medicine [facility] [address] [place] [address] [place] [address] [place] [address] 02/15/2025 10:45 AM ABATTOIR MANAGER Office Visit [facility] [address] [place] [address] Dale Shahid MD [facility], [address] [place] [address] documented as of this encounter Visit Diagnoses Not on filedocumented in this encounter
--- OUTSIDE RECORDS SUMMARY | 2024-04-11 05:37 | XMS_ITS | Encounter Summary ---
Author Organization [facility] Address [address] [place] [address]. [place] [address] [place] [address] Care Team Providers Care Milk Pasteurizer Name Role Phone Unavailable Primary Care Provider Unavailabl e Encounter Details Date Type Department Care Team (Late st Contact Info) Description 04/05/1999 Abstract [facility] CONVERSION [address] [place] [address] , Generic MD Kandi Social History Tobacco Use Types Packs/Day Years Used Date Smoking Tobacco: Never Assessed Sex and Gender Information Value Date Recorded Sex Assigned at Not on file Legal Sex Male 7:33 PM CDT Gender Identity Male 06/12/2021 5:16 AM FLOORMAN Sexual Orientation Straight 06/28/2021 10 :21 AM CDT documented as of this encounter Plan of Treatment Upcoming Encounters Date Type Department Care Team (Late st Contact Info) Description 08/05/2024 10:00 AM CDT Office Visit [facility] Medical Group Family & Internal Medicine [facility] [address] [place] [address] [place] [address] [place] [address] 02/15/2025 10:45 AM FLOORMAN Office Visit [facility] [address] [place] [address] Dale Shahid MD [facility], [address] [place] [address] documented as of this encounter Visit Diagnoses Not on filedocumented in this encounter
--- OUTSIDE RECORDS SUMMARY | 2024-04-11 05:37 | XMS_ITS | Encounter Summary ---
Author Organization [facility] Address [address] [place] [address]. [place], [place] [address] [place] [address] Care Team Providers Care Cardiology Clinical Nurse Specialist Name Role Phone José Schaffer MD Primary Care Provider Unava ilable Reason for Visit * Reason Comments Image (SCAN) Encounter Details Date Type Department Care Team (Latest Contact Info) Description 08/25/2016 Scan HEALTH INFO SRVCS Scanned, Documents Image [...] CDT Gender Identity Male 06/12/2021 5:16 AM TERRITORY OUTSIDE SALES MANAGER Sexual Orientation Straight 06/28/2021 10 :21 [...] [facility] Medical [facility] Family & Internal Medicine [facility] [id number] [place] [address] Amado Mathew PA [address] [place] [address] 02/15/2025 10:45 AM TERRITORY OUTSIDE SALES MANAGER Office Visit [facility] [address] [place] [address] Dale Shahid MD Three [facility] [address] [place] [address] documented as of this encounter Procedures Procedure Name Priority Date/Time Associated Diagnosis Comments IMAGE GENERIC 08/25/2016 documented in this encounter Results * IMAGE GENERIC (08/25/2016) Anatomical Region Laterality Modality Other 08/25/2016 Narrative 08/25/2016 Ordered by an unspecified provider. us Documents Scanned SCANNING Final Result documented in this encounter Visit Diagnoses Not on filedocumented in this encounter Care Teams Cardiology Clinical Nurse Specialist Relationship Specialty Start Date End Date José Schaffer MD PCP - General INTERNAL MEDICINE 04/20/19 12/12/20 documented as of this encounter
--- OUTSIDE RECORDS SUMMARY | 2024-04-11 05:37 | XMS_ITS | Encounter Summary ---
Author Organization [facility] Address [address] [place] [address]. [place], [place] [address] [place] [address] Care Team Providers Care Culinary Internship Name Role Phone José Schaffer MD Primary Care Provider Unava ilable Reason for Visit * Reason Comments Lab (SCAN) Encounter Details Date Type Department Care Team (Latest Contact Info) Description 11/23/2015 Scan [facility] INFO SRVCS Scanned, Documents [...] CDT Gender Identity Male 06/12/2021 5:16 AM SALES RECRUITING COORDINATOR Sexual Orientation Straight 06/28/2021 10 :21 [...] & Internal Medicine [facility] [address] [place] [address] Amado Mathew PA [address] [place] [address] 02/15/2025 10:45 AM SALES RECRUITING COORDINATOR Office Visit [facility] [address] [place] [address] Dale Shahid MD Three [facility] [address] [place] [address] documented as of this encounter Procedures Procedure Name Priority Date/Time Associated Diagnosis Comments OUTSIDE LAB (SCAN ORDER) 11/23/2015 OUTSIDE LAB (SCAN ORDER) 11/23/2015 documented in this encounter Results * OUTSIDE LAB (SCAN) (11/23/2015) 11/23/2015 Narrative 11/23/2015 Ordered by an unspecified provider. us Documents Scanned SCANNING Final Result * OUTSIDE LAB (SCAN) (11/23/2015) 11/23/2015 Narrative 11/23/2015 Ordered by an unspecified provider. us Documents Scanned SCANNING Final Result documented in this encounter Visit Diagnoses Not on filedocumented in this encounter Care Teams Culinary Internship Relationship Specialty Start Date End Date José Schaffer MD PCP - General INTERNAL MEDICINE 04/20/19 12/12/20 documented as of this encounter
--- OUTSIDE RECORDS SUMMARY | 2024-04-11 05:37 | XMS_ITS | Encounter Summary ---
Author Organization [facility] Address [address] [place] [address]. [place] [address] [place] [address] Care Team Providers Care Ict Educator Name Role Phone Unavailable Primary Care Provider Unavailabl e Encounter Details Date Type Department Care Team (Late st Contact Info) Description 01/12/2004 Abstract [facility] CONVERSION [address] [place] [address] , Generic ConversionMD Social History Tobacco Use Types Packs/Day Years Used Date Smoking Tobacco: Never Assessed Sex and Gender Information Value Date Recorded Sex Assigned at Not on file Legal Sex Male 7:33 PM CDT Gender Identity Male 06/12/2021 5:16 AM DIRECTOR OF BANDS Sexual Orientation Straight 06/28/2021 10 :21 AM CDT documented as of this encounter Plan of Treatment Upcoming Encounters Date Type Department Care Team (Late st Contact Info) Description 08/05/2024 10:00 AM CDT Office Visit [facility] Medical Group Family & Internal Medicine [facility] [address] [place] [address] [place] [address] [place] [address] 02/15/2025 10:45 AM DIRECTOR OF BANDS Office Visit [facility] [address] [place] [address] Dale Shahid MD [facility], [address] [place] [address] documented as of this encounter Visit Diagnoses Not on filedocumented in this encounter
--- OUTSIDE RECORDS SUMMARY | 2024-04-11 05:37 | XMS_ITS | Encounter Summary ---
Author Organization [facility] Address [address] [place] [address]. [place] [address] [place] [address] Care Team Providers Care Podiatrist Assistant Name Role Phone Unavailable Primary Care Provider Unavailabl e Encounter Details Date Type Department Care Team (Late st Contact Info) Description 11/08/[address] [facility] CONVERSION [address] [place] [address] , Generic MD Kandi Social History Tobacco Use Types Packs/Day Years Used Date Smoking Tobacco: Never Assessed Sex and Gender Information Value Date Recorded Sex Assigned at Not on file Legal Sex Male 7:33 PM CDT Gender Identity Male 06/12/2021 5:16 AM SNUFF DRIER Sexual Orientation Straight 06/28/2021 10 :21 AM CDT documented as of this encounter Plan of Treatment Upcoming Encounters Date Type Department Care Team (Late st Contact Info) Description 08/05/2024 10:00 AM CDT Office Visit [facility] Medical Group Family & Internal Medicine [facility] [address] [place] [address] [place] [address] [place] [address] 02/15/2025 10:45 AM SNUFF DRIER Office Visit [facility] [address] [place] [address] Dale Shahid MD [facility], [address] [place] [address] documented as of this encounter Visit Diagnoses Not on filedocumented in this encounter
--- OUTSIDE RECORDS SUMMARY | 2024-04-11 05:37 | XMS_ITS | Encounter Summary ---
Author Organization [facility] Address [address] [place] [address]. [place], [place] [address] [place] [address] Care Team Providers Care Director Of Institutional Giving Name Role Phone José Schaffer MD Primary Care Provider Unava ilable Reason for Visit * Reason Comments Lab (SCAN) Encounter Details Date Type Department Care Team (Latest Contact Info) Description 06/02/2019 Scan [facility] INFO SRVCS Scanned, Documents [...] CDT Gender Identity Male 06/12/2021 5:16 AM GAMING HOST Sexual Orientation Straight 06/28/2021 10 :21 AM [...] 08/05/2024 10:00 AM CDT Office Visit [facility] Medical Group Family & Internal Medicine [address] [address] [place] [address] [place] [address] 02/15/2025 10:45 AM GAMING HOST Office Visit [facility] [address] [place] [address] Dale Shahid MD Three [facility], [address] [place] [address] documented as of this encounter Procedures Procedure Name Priority Date/Time Associated Diagnosis Comments OUTSIDE LAB (SCAN ORDER) 06/02/2019 documented in this encounter Results * OUTSIDE LAB (SCAN) (06/02/2019) 06/02/2019 Narrative 06/02/2019 Ordered by an unspecified provider. us Documents Scanned SCANNING Final Result documented in this encounter Visit Diagnoses Not on filedocumented in this encounter Care Teams Director Of Institutional Giving Relationship Specialty Start Date End Date José Schaffer MD PCP - General INTERNAL MEDICINE 04/20/19 12/12/20 documented as of this encounter
--- OUTSIDE RECORDS SUMMARY | 2024-04-11 05:37 | XMS_ITS | Encounter Summary ---
Author Organization [facility] Address [address] [place] [address]. [place] [address] [place] [address] Care Team Providers Care Mobile Security Architect Name Role Phone Unavailable Primary Care Provider Unavailabl e Encounter Details Date Type Department Care Team (Late st Contact Info) Description 11/04/1998 Abstract [facility] CONVERSION [address] [place] [address] , Generic MD Kandi Social History Tobacco Use Types Packs/Day Years Used Date Smoking Tobacco: Never Assessed Sex and Gender Information Value Date Recorded Sex Assigned at Not on file Legal Sex Male 7:33 PM CDT Gender Identity Male 06/12/2021 5:16 AM GENERAL INSPECTOR Sexual Orientation Straight 06/28/2021 10 :21 AM CDT documented as of this encounter Plan of Treatment Upcoming Encounters Date Type Department Care Team (Late st Contact Info) Description 08/05/2024 10:00 AM CDT Office Visit [facility] Medical Group Family & Internal Medicine [facility] [address] [place] [address] [place] [address] [place] [address] 02/15/2025 10:45 AM GENERAL INSPECTOR Office Visit [place] [facility] [address] [place] [address] Dale Shahid MD [facility], [address] [place] [address] documented as of this encounter Visit Diagnoses Not on filedocumented in this encounter
--- OUTSIDE RECORDS SUMMARY | 2024-04-11 05:37 | XMS_ITS | Encounter Summary ---
Author Organization [facility] Address [address] [place] [address]. [place] [address] [place] [address] Care Team Providers Care Material Control Associate Name Role Phone Unavailable Primary Care Provider Unavailabl e Encounter Details Date Type Department Care Team (Late st Contact Info) Description 03/24/2014 Abstract [facility] [address] [place] [address] Renetta Crow, [place] [address], [address] [address] Social History Tobacco Use Types Packs/Day Years Used Date Smoking Tobacco: Never Assessed Sex and Gender Information Value Date Recorded Sex Assigned at Not on file Legal Sex Male 7:33 PM CDT Gender Identity Male 06/12/2021 5:16 AM LICENSE CLERK Sexual Orientation Straight 06/28/2021 10 :21 AM CDT documented as of this encounter Plan of Treatment Upcoming Encounters Date Type Department Care Team (Late st Contact Info) Description 08/05/2024 10:00 AM CDT Office Visit [facility] Medical Group Family & Internal Medicine [facility] [address] [place] [address] [place] [address] [place], [place] [address] 02/15/2025 10:45 AM LICENSE CLERK Office Visit [facility] [address] [place] [address] Dale Shahid MD [facility], [address] [place] [address] documented as of this encounter Visit Diagnoses Diagnosis Acute bronchitis documented in this encounter
--- OUTSIDE RECORDS SUMMARY | 2024-04-11 05:37 | XMS_ITS | Encounter Summary ---
Author Organization [facility] Address [address] [place] [address]. [place], [place] [address] [place] [address] Care Team Providers Care Acquisition Lead Name Role Phone José Schaffer MD Primary [...] CDT Gender Identity Male 06/12/2021 5:16 AM AVIONICS TECHNICIAN Sexual Orientation Straight 06/28/2021 10 :21 [...] 10:00 AM CDT Office Visit [facility] Medical Group Family & Internal Medicine [address] [address] [place] [address] [place] [address] 02/15/2025 10:45 AM AVIONICS TECHNICIAN Office Visit [facility] [address] [place] [address] Dale Shahid MD Three [facility], [address] [place] [address] documented as of this encounter Procedures Procedure Name Priority Date/Time Associated Diagnosis Comments OUTSIDE LAB (SCAN ORDER) Routine 06/02/2019 documented in this encounter Results * OUTSIDE LAB (SCAN) (06/02/2019) HGB A1C 6.1 % [facility] ONBASE 06/02/2019 us Documents Scanned SCANNING Final Result HS ONBASE documented in this encounter Visit Diagnoses Not on filedocumented in this encounter Care Teams Acquisition Lead Relationship Specialty Start Date End Date José Schaffer MD PCP - General INTERNAL MEDICINE 04/20/19 12/12/20 documented as of this encounter
--- OUTSIDE RECORDS SUMMARY | 2024-04-11 05:37 | XMS_ITS | Encounter Summary ---
Author Organization [facility] Address [address] [place] [address]. [place] [address] [place] [address] Care Team Providers Care Medication Reconciliation Technician Name Role Phone Unavailable Primary Care Provider Unavailabl e Encounter Details Date Type Department Care Team (Late st Contact Info) Description 06/18/2005 Abstract [facility] CONVERSION [address] [place] [address] Sudheer Soriano PA [address] [place] [address] Social History Tobacco Use Types Packs/Day Years Used Date Smoking Tobacco: Never Assessed Sex and Gender Information Value Date Recorded Sex Assigned at Not on file Legal Sex Male 7:33 PM CDT Gender Identity Male 06/12/2021 5:16 AM OVERHEAD FOREMAN Sexual Orientation Straight 06/28/2021 10 :21 AM CDT documented as of this encounter Plan of Treatment Upcoming Encounters Date Type Department Care Team (Late st Contact Info) Description 08/05/2024 10:00 AM CDT Office Visit [facility] Medical Group Family & Internal Medicine [facility] [address] [place] [address] [place] [address] [place], [place] [id number] 02/15/2025 10:45 AM OVERHEAD FOREMAN Office Visit [facility] [address] [place] [address] Dale Shahid MD [facility], [address] [place] [address] documented as of this encounter Visit Diagnoses Not on filedocumented in this encounter
--- OUTSIDE RECORDS SUMMARY | 2024-04-11 05:37 | XMS_ITS | Encounter Summary ---
Author Organization [facility] Address [address] [place] [address]. [place] [address] [place] [address] Care Team Providers Care Third Steel Pourer Name Role Phone Unavailable Primary Care Provider Unavailabl e Encounter Details Date Type Department Care Team (Late st Contact Info) Description 12/21/2009 Abstract [facility] CONVERSION [address] [place] [address] Social History Tobacco Use Types Packs/Day Years Used Date Smoking Tobacco: Never Assessed Sex and Gender Information Value Date Recorded Sex Assigned at Not on file Legal Sex Male 7:33 PM CDT Gender Identity Male 06/12/2021 5:16 AM EDITOR SCHOOL PHOTOGRAPH Sexual Orientation Straight 06/28/2021 10 :21 AM CDT documented as of this encounter Plan of Treatment Upcoming Encounters Date Type Department Care Team (Late st Contact Info) Description 08/05/2024 10:00 AM CDT Office Visit [facility] Medical Group Family & Internal Medicine [facility] [address] [place] [address] [place] [address] [place] [address] 02/15/2025 10:45 AM EDITOR SCHOOL PHOTOGRAPH Office Visit [facility] [address] [place] [address] Dale Shahid MD [facility], [address] [place] [address] documented as of this encounter Visit Diagnoses Not on filedocumented in this encounter
--- OUTSIDE RECORDS SUMMARY | 2024-04-11 05:37 | XMS_ITS | Encounter Summary ---
Author Organization [facility] Address [address] [place] [address]. [place] [address] [place] [address] Care Team Providers Care Paid Intern Name Role Phone Unavailable Primary Care Provider Unavailabl e Encounter Details Date Type Department Care Team (Late st Contact Info) Description 07/10/2016 Abstract [facility] Care [address] [place], [place] [id number] Social History Tobacco Use Types Packs/Day Years Used Date Smoking Tobacco: Never Assessed Sex and Gender Information Value Date Recorded Sex Assigned at Not on file Legal Sex Male 7:33 PM CDT Gender Identity Male 06/12/2021 5:16 AM TEMPERATURE INSPECTOR Sexual Orientation Straight 06/28/2021 10 :21 AM CDT documented as of this encounter Plan of Treatment Upcoming Encounters Date Type Department Care Team (Late st Contact Info) Description 08/05/2024 10:00 AM CDT Office Visit [facility] Medical Group Family & Internal Medicine [facility] [address] [place] [address] [place] [address] [place] [address] 02/15/2025 10:45 AM TEMPERATURE INSPECTOR Office Visit [facility] [place] [address] [place] [address] Dale Shahid MD [facility], [address] [place] [address] documented as of this encounter Visit Diagnoses Diagnosis Wheezing documented in this encounter
--- OUTSIDE RECORDS SUMMARY | 2024-04-11 05:37 | XMS_ITS | Encounter Summary ---
Author Organization [facility] Address [address] [place] [address]. [place], [place] [address] [place] [address] Care Team Providers Care Social Services Counselor Name Role Phone José Schaffer MD Primary Care Provider Unava ilable Reason for Visit * Reason Comments Lab (SCAN) Encounter Details Date Type Department Care Team (Latest Contact Info) Description 04/18/2017 Scan [facility] INFO SRVCS Scanned, Documents [...] CDT Gender Identity Male 06/12/2021 5:16 AM OFFICE SERVICES COORDINATOR Sexual Orientation Straight 06/28/2021 10 :21 [...] [facility] Internal Medicine [address] [address] Amado Mathew PA [address] [place] [address] 02/15/2025 10:45 AM OFFICE SERVICES COORDINATOR Office Visit [facility] [address] [place] [address] Dale Shahid MD Three [facility] [address] [place] [address] documented as of this encounter Procedures Procedure Name Priority Date/Time Associated Diagnosis Comments OUTSIDE LAB (SCAN ORDER) 04/18/2017 documented in this encounter Results * OUTSIDE LAB (SCAN) (04/18/2017) 04/18/2017 Narrative 04/18/2017 Ordered by an unspecified provider. us Documents Scanned SCANNING Final Result documented in this encounter Visit Diagnoses Not on filedocumented in this encounter Care Teams Social Services Counselor Relationship Specialty Start Date End Date José Schaffer MD PCP - General INTERNAL MEDICINE 04/20/19 12/12/20 documented as of this encounter
--- OUTSIDE RECORDS SUMMARY | 2024-04-11 05:37 | XMS_ITS | Encounter Summary ---
Author Organization [facility] Address [address] [place] [address]. [place] [address] [place] [address] Care Team Providers Care Strategic Debriefing Specialist Name Role Phone Unavailable Primary Care Provider Unavailabl e Encounter Details Date Type Department Care Team (Late st Contact Info) Description 10/07/[address] [facility] CONVERSION [address] [place] [address] , Generic MD Kandi Social History Tobacco Use Types Packs/Day Years Used Date Smoking Tobacco: Never Assessed Sex and Gender Information Value Date Recorded Sex Assigned at Not on file Legal Sex Male 7:33 PM CDT Gender Identity Male 06/12/2021 5:16 AM TUBE WORKER Sexual Orientation Straight 06/28/2021 10 :21 AM CDT documented as of this encounter Plan of Treatment Upcoming Encounters Date Type Department Care Team (Late st Contact Info) Description 08/05/2024 10:00 AM CDT Office Visit [facility] Medical Group Family & Internal Medicine [facility] [address] [place] [address] [place] [address] [place] [address] 02/15/2025 10:45 AM TUBE WORKER Office Visit [facility] [address] [place] [address] Dale Shahid MD [facility], [address] [place] [address] documented as of this encounter Visit Diagnoses Not on filedocumented in this encounter
--- OUTSIDE RECORDS SUMMARY | 2024-04-11 05:37 | XMS_ITS | Encounter Summary ---
Author Organization [facility] Address [address] [place] [address]. [place], [place] [address] [place] [address] Care Team Providers Care Correctional Supervisor Lieutenant Name Role Phone José Schaffer MD Primary Care Provider Paul Clifton MD Primary Care Provider U navailable Reason for Visit * Reason Comments Colonoscopy Report (SCAN) Encounter Details Date Type Department Care Team (Late Contact Info) Description 11/29/2014 Scan HEALTH INFO SRVCS Scanned, Doc Med Group Colonoscopy Report (SCAN) Social History Tobacco Use Types Packs/Day Years Used Date Smoking Tobacco: Never Assessed PHQ-2 Answer Date Recorded PHQ-2 Score - If the patient scores above 3, please move on to questions 3-9 0 10/31/2021 Sex and Gender Information Value Date Recorded Sex Assigned at Not on file Legal Sex Male 7:33 PM CDT Gender Identity Male 06/12/2021 5:16 AM FLUX PLANT OPERATOR Sexual Orientation Straight 06/28/2021 10 :21 AM CDT COVID-19 Exposure Response Date Recorded In the last 10 days, have yo u been in contact with someone who was confirmed or suspected to have Coronavirus/COVID-19? No / Unsure 02/20/2022 10:23 AM FLUX PLANT OPERATOR documented as of this encounter Plan of Treatment Upcoming Encounters Date Type Department [facility] Team [facility] Description 08/05/2024 10:00 AM CDT Office Visit [facility] Medical Group Family & Internal Medicine [address] [address] [place] [address] [place] [address] 02/15/2025 10:45 AM FLUX PLANT OPERATOR Office Visit [facility] [address] [place] [address] Dale Shahid MD Three [facility], [address] [place] [address] documented as of this encounter Procedures Procedure Name Priority Date/Time Associated Diagnosis Comments COLONOSCOPY GENERIC (SCAN ORDER) 11/29/2014 documented in this encounter Results * COLONOSCOPY GENERIC (11/29/2014) 11/29/2014 us Doc Med Group Scanned SCANNING Final Resu lt documented in this encounter Visit Diagnoses Not on filedocumented in this encounter Additional Health Concerns Infection Onset Date Last Indicated Resolved Time COVID-19 Rule Out 10/31/2021 10/31/2021 10/31/2021 12:12 PM CDT documented as of this encounter Care Teams Correctional Supervisor Lieutenant Relationship Specialty Start Date End Date José Schaffer MD PCP - General INTERNAL MEDICINE 04/20/19 12/12/20 Paul Mejia MD PCP - General INTERNAL MEDICINE 12/13/20 07/19/22 documented as of this encounter
--- OUTSIDE RECORDS SUMMARY | 2024-04-11 05:37 | XMS_ITS | Encounter Summary ---
Author Organization [facility] Address [address] [place] [address]. [place] [address] [place] [address] Care Team Providers Care Waiter/Waitress Buffet Name Role Phone Unavailable Primary Care Provider Unavailabl e Encounter Details Date Type Department Care Team (Late st Contact Info) Description 04/18/[address] [facility] [address] [place] [address] Ally Rebollar FNP Social History Tobacco Use Types Packs/Day Years Used Date Smoking Tobacco: Never Assessed Sex and Gender Information Value Date Recorded Sex Assigned at Not on file Legal Sex Male 7:33 PM CDT Gender Identity Male 06/12/2021 5:16 AM COMPENSATION PROGRAMS MANAGER Sexual Orientation Straight 06/28/2021 10 :21 AM CDT documented as of this encounter Plan of Treatment Upcoming Encounters Date Type Department Care Team (Late st Contact Info) Description 08/05/2024 10:00 AM CDT Office Visit [facility] Medical Group Family & Internal Medicine [facility] [address] [place] [address] [place] [address] [place] [address] 02/15/2025 10:45 AM COMPENSATION PROGRAMS MANAGER Office Visit [facility] [place] [address] [place] [address] [facility], [address] [place] [address] documented as of this encounter Procedures Procedure Name Priority Date/Time Associated Diagnosis Comments STREP A, DNA Routine 04/18/2017 5:48 PM COMPENSATION PROGRAMS MANAGER RAPID STREP A STAT 04/18/2017 5:48 PM COMPENSATION PROGRAMS MANAGER INFLUENZA A & B STAT 04/18/2017 5:48 PM COMPENSATION PROGRAMS MANAGER documented in this encounter Results * STREP A, DNA (04/18/2017 5:48 PM COMPENSATION PROGRAMS MANAGER) [facility] STREP A MOLECULAR NEGATIVE NEGATIVE 04/18/2017 7:04 PM COMPENSATION PROGRAMS MANAGER [facility] Comment: NOTE: A negative result is highly sensitivefor S. pyogenes in throat specimens.This test does not distinguish between viableand non-viable organisms.If the result is negative and symptomspersist, additional testing is recommended torule out other pathogens. 04/18/2017 5:48 PM COMPENSATION PROGRAMS MANAGER us Generic Conversion Md HERNANDEZ MICROBIOLOGY - GENERAL ORDERABLES Final Result [facility] [address] [place] [address], [place] [phone] * RAPID STREP A (04/18/2017 5:48 PM COMPENSATION PROGRAMS MANAGER) [facility] RAPID STREP TEST NEGATIVE NEGATIVE 04/18/2017 6:06 PM COMPENSATION PROGRAMS MANAGER [facility] SERUM OR PLASMA SPECIMEN / Unknown 04/18/2017 5:48 PM COMPENSATION PROGRAMS MANAGER 04/18/2017 5:56 PM COMPENSATION PROGRAMS MANAGER Comment:ACELLULAR BLOOD (SER UM OR PLASMA) SPECIMEN us Generic Conversion Md HERNANDEZ MICROBIOLOGY - GENERAL ORDERABLES Final Result [facility] [address] [place] [address], [place] [phone] * (ABNORMAL) INFLUENZA A & B (04/18/2017 5:48 PM COMPENSATION PROGRAMS MANAGER) SPECIMEN TYPE NASOPHARYNGEAL SWAB 04/18/2017 5:57 PM COMPENSATION PROGRAMS MANAGER [facility] INFLUENZA A NEGATIVE NEGATIVE 04/18/2017 6:17 PM COMPENSATION PROGRAMS MANAGER [facility] INFLUENZA B POSITIVE(A) NEGATIVE 04/18/2017 6:17 PM COMPENSATION PROGRAMS MANAGER [facility] 04/18/2017 5:48 PM COMPENSATION PROGRAMS MANAGER 04/18/2017 5:56 PM COMPENSATION PROGRAMS MANAGER us Generic Conversion Md HERNANDEZ MICROBIOLOGY - GENERAL ORDERABLES Final Result Performing Organization Address City/State/[facility] Co de Phone Number [facility] [address] [place] [address], [place] [phone] documented in this encounter Visit Diagnoses Diagnosis Influenza due to unidentified influenza virus with other respiratory manifestations documented in this encounter
--- OUTSIDE RECORDS SUMMARY | 2024-04-11 05:37 | XMS_ITS | Encounter Summary ---
Author Organization [facility] Address [address] [place] [address]. [place] [address] [place] [address] Care Team Providers Care Skin Specialist Name Role Phone Unavailable Primary Care Provider Unavailabl e Encounter Details Date Type Department Care Team (Late st Contact Info) Description 05/22/2002 Abstract [facility] CONVERSION [address] [place] [address] , Generic ConversionMD Social History Tobacco Use Types Packs/Day Years Used Date Smoking Tobacco: Never Assessed Sex and Gender Information Value Date Recorded Sex Assigned at Not on file Legal Sex Male 7:33 PM CDT Gender Identity Male 06/12/2021 5:16 AM FLESHING MACHINE OPERATOR Sexual Orientation Straight 06/28/2021 10 :21 AM CDT documented as of this encounter Plan of Treatment Upcoming Encounters Date Type Department Care Team (Late st Contact Info) Description 08/05/2024 10:00 AM CDT Office Visit [facility] Medical Group Family & Internal Medicine [facility] [address] [place] [address] [place] [address] [place] [address] 02/15/2025 10:45 AM FLESHING MACHINE OPERATOR Office Visit [facility] [address] [place] [address] Dale Shahid MD [facility], [address] [place] [address] documented as of this encounter Visit Diagnoses Not on filedocumented in this encounter
--- OUTSIDE RECORDS SUMMARY | 2024-04-11 05:37 | XMS_ITS | Encounter Summary ---
Author Organization [facility] Address [address] [place] [address]. [place], [place] [address] [place] [address] Care Team Providers Care Die Keeper Name Role Phone José Schaffer MD Primary Care Provider Unava ilable Reason for Visit * Reason Comments Pathology (SCAN) Encounter Details Date Type Department Care Team (Late Contact Info) Description 07/13/2017 Scan HEALTH INFO SRVCS Scanned, Documents Pathology (SCAN) Social History Tobacco Use Types Packs/Day Years Used Date Smoking Tobacco: Never Assessed PHQ-2 Answer Date Recorded PHQ-2 Score - If the patient scores above 3, please move on to questions 3-9 0 08/22/2020 Sex and Gender Information Value Date Recorded Sex Assigned at Not on file Legal Sex Male 7:33 PM CDT Gender Identity Male 06/12/2021 5:16 AM FACSIMILE MACHINE OPERATOR Sexual Orientation Straight 06/28/2021 10 :21 AM CDT COVID-19 Exposure Response Date Recorded In the last month, have you been in contact with someone who was confirmed or suspected to have Coronavirus / COVID-19? No / Unsure 08/22/2020 7:54 AM CDT documented as of this encounter Plan of Treatment Upcoming Encounters Date Type Department Care Team ([facility] Contact Info) Description 08/05/2024 10:00 AM CDT Office Visit [facility] Medical Group Family & Internal Medicine [facility] [address] [place] [address] Amado Mathew PA [address] [place] [address] 02/15/2025 10:45 AM FACSIMILE MACHINE OPERATOR Office Visit [facility] [address] [place] [address] Dale Shahid MD Three [facility]., [address] [place] [address] documented as of this encounter Procedures Procedure Name Priority Date/Time Associated Diagnosis Comments PATHOLOGY GENERIC (SCAN ORDER) 07/13/2017 documented in this encounter Results * PATHOLOGY GENERIC (07/13/2017) 07/13/2017 Narrative 07/13/2017 Ordered by an unspecified provider. us Documents Scanned SCANNING Final Result documented in this encounter Visit Diagnoses Not on filedocumented in this encounter Care Teams Die Keeper Relationship Specialty Start Date End Date José Schaffer MD PCP - General INTERNAL MEDICINE 04/20/19 12/12/20 documented as of this encounter
--- OUTSIDE RECORDS SUMMARY | 2024-04-11 05:37 | XMS_ITS | Encounter Summary ---
Author Organization [facility] Address [address] [place] [address]. [place] [address] [place] [address] Care Team Providers Care Nursing Secretary Name Role Phone Unavailable Primary Care Provider Unavailabl e Encounter Details Date Type Department Care Team (Late st Contact Info) Description 12/19/1999 Abstract [facility] CONVERSION [address] [place] [address] , Generic MD Kandi Social History Tobacco Use Types Packs/Day Years Used Date Smoking Tobacco: Never Assessed Sex and Gender Information Value Date Recorded Sex Assigned at Not on file Legal Sex Male 7:33 PM CDT Gender Identity Male 06/12/2021 5:16 AM HAZARDOUS WASTE MANAGEMENT SPECIALIST Sexual Orientation Straight 06/28/2021 10 :21 AM CDT documented as of this encounter Plan of Treatment Upcoming Encounters Date Type Department Care Team (Late st Contact Info) Description 08/05/2024 10:00 AM CDT Office Visit [facility] Medical Group Family & Internal Medicine [facility] [address] [place] [address] [place] [address] [place] [address] 02/15/2025 10:45 AM HAZARDOUS WASTE MANAGEMENT SPECIALIST Office Visit [facility] [address] [place] [address] Dale Shahid MD [facility], [address] [place] [address] documented as of this encounter Visit Diagnoses Not on filedocumented in this encounter
--- OUTSIDE RECORDS SUMMARY | 2024-04-11 05:37 | XMS_ITS | Encounter Summary ---
Author Organization [facility] Address [address] [place] [address]. [place] [address] [place] [address] Care Team Providers Care Geology Technician Name Role Phone Unavailable Primary Care Provider Unavailabl e Encounter Details Date Type Department Care Team (Late st Contact Info) Description 06/05/2002 Abstract [facility] CONVERSION [address] [place] [address] , Generic ConversionMD Social History Tobacco Use Types Packs/Day Years Used Date Smoking Tobacco: Never Assessed Sex and Gender Information Value Date Recorded Sex Assigned at Not on file Legal Sex Male 7:33 PM CDT Gender Identity Male 06/12/2021 5:16 AM CHORAL DIRECTOR Sexual Orientation Straight 06/28/2021 10 :21 AM CDT documented as of this encounter Plan of Treatment Upcoming Encounters Date Type Department Care Team (Late st Contact Info) Description 08/05/2024 10:00 AM CDT Office Visit [facility] Medical Group Family & Internal Medicine [facility] [address] [place] [address] [place] [address] [place] [address] 02/15/2025 10:45 AM CHORAL DIRECTOR Office Visit [facility] [address] [place] [address] Dale Shahid MD [facility], [address] [place] [address] documented as of this encounter Visit Diagnoses Not on filedocumented in this encounter
--- OUTSIDE RECORDS SUMMARY | 2024-04-11 05:37 | XMS_ITS | Encounter Summary ---
Author Organization [facility] Address [address] [place] [address]. [place] [address] [place] [address] Care Team Providers Care Wine Blender Name Role Phone Unavailable Primary Care Provider Unavailabl e Encounter Details Date Type Department Care Team (Late st Contact Info) Description 11/14/2001 Abstract [facility] CONVERSION [address] [place] [address] , Generic ConversionMD Social History Tobacco Use Types Packs/Day Years Used Date Smoking Tobacco: Never Assessed Sex and Gender Information Value Date Recorded Sex Assigned at Not on file Legal Sex Male 7:33 PM CDT Gender Identity Male 06/12/2021 5:16 AM SUB ACUTE CARE NURSE Sexual Orientation Straight 06/28/2021 10 :21 AM CDT documented as of this encounter Plan of Treatment Upcoming Encounters Date Type Department Care Team (Late st Contact Info) Description 08/05/2024 10:00 AM CDT Office Visit [facility] Medical Group Family & Internal Medicine [facility] [address] [place] [address] [place] [address] [place] [address] 02/15/2025 10:45 AM SUB ACUTE CARE NURSE Office Visit [facility] [address] [place] [address] Dale Shahid MD [facility], [address] [place] [address] documented as of this encounter Visit Diagnoses Not on filedocumented in this encounter
--- OUTSIDE RECORDS SUMMARY | 2024-04-11 05:37 | XMS_ITS | Encounter Summary ---
Author Organization [facility] Address [address] [place] [address]. [place] [address] [place] [address] Care Team Providers Care Assessor Name Role Phone Unavailable Primary Care Provider Unavailabl e Encounter Details Date Type Department Care Team (Late st Contact Info) Description 04/04/1994 Abstract [facility] CONVERSION [address] [place] [address] , Generic MD Kandi Social History Tobacco Use Types Packs/Day Years Used Date Smoking Tobacco: Never Assessed Sex and Gender Information Value Date Recorded Sex Assigned at Not on file Legal Sex Male 7:33 PM CDT Gender Identity Male 06/12/2021 5:16 AM ELECTROMECHANICAL INSPECTOR Sexual Orientation Straight 06/28/2021 10 :21 AM CDT documented as of this encounter Plan of Treatment Upcoming Encounters Date Type Department Care Team (Late st Contact Info) Description 08/05/2024 10:00 AM CDT Office Visit [facility] Medical Group Family & Internal Medicine [facility] [address] [place] [address] [place] [address] [place] [address] 02/15/2025 10:45 AM ELECTROMECHANICAL INSPECTOR Office Visit [facility] [address] [place] [address] Dale Shahid MD [facility], [address] [place] [address] documented as of this encounter Visit Diagnoses Not on filedocumented in this encounter
--- OUTSIDE RECORDS SUMMARY | 2024-04-11 05:37 | XMS_ITS | Encounter Summary ---
Author Organization [facility] Address [address] [place] [address]. [place], [place] [address] [place] [address] Care Team Providers Care State Historical Society Director Name Role Phone José Schaffer MD Primary Care Provider Unava ilable Reason for Visit * Reason Comments Lab (SCAN) Encounter Details Date Type Department Care Team (Latest Contact Info) Description 05/20/2017 Scan [facility] HE[facility] INFO SRVCS Scanned, Documents [...] CDT Gender Identity Male 06/12/2021 5:16 AM BUSINESS ADMINISTRATOR Sexual Orientation Straight 06/28/2021 10 :21 [...] [facility] Medical Group Family & Internal Medicine [address] [address] Amado Mathew PA [address] [place] [address] 02/15/2025 10:45 AM BUSINESS ADMINISTRATOR Office Visit [facility] [address] [place] [address] Dale Shahid MD Three [facility] [address] [place] [address] documented as of this encounter Procedures Procedure Name Priority Date/Time Associated Diagnosis Comments OUTSIDE LAB (SCAN ORDER) 05/20/2017 OUTSIDE LAB (SCAN ORDER) 05/20/2017 documented in this encounter Results * OUTSIDE LAB (SCAN) (05/20/2017) 05/20/2017 Narrative 05/20/2017 Ordered by an unspecified provider. us Documents Scanned SCANNING Final Result * OUTSIDE LAB (SCAN) (05/20/2017) 05/20/2017 Narrative 05/20/2017 Ordered by an unspecified provider. us Documents Scanned SCANNING Final Result documented in this encounter Visit Diagnoses Not on filedocumented in this encounter Care Teams State Historical Society Director Relationship Specialty Start Date End Date José Schaffer MD PCP - General INTERNAL MEDICINE 04/20/19 12/12/20 documented as of this encounter
--- OUTSIDE RECORDS SUMMARY | 2024-04-11 05:37 | XMS_ITS | Encounter Summary ---
Author Organization [facility] Address [address] [place] [address]. [place] [address] [place] [address] Care Team Providers Care Trimmer Tailer Name Role Phone Unavailable Primary Care Provider Unavailabl e Encounter Details Date Type Department Care Team (Late st Contact Info) Description 09/10/2016 Abstract [facility] Emergency Room [address] [place], [place] [id number] Steve Morales MD Social History Tobacco Use Types Packs/Day Years Used Date Smoking Tobacco: Never Assessed Sex and Gender Information Value Date Recorded Sex Assigned at Not on file Legal Sex Male 7:33 PM CDT Gender Identity Male 06/12/2021 5:16 AM CONTRACT ADMINISTRATION MANAGER Sexual Orientation Straight 06/28/2021 10 :21 AM CDT documented as of this encounter Plan of Treatment Upcoming Encounters Date Type Department Care Team (Late st Contact Info) Description 08/05/2024 10:00 AM CDT Office Visit [facility] Family & Internal Medicine [facility] [address] [place] [address] [place] [address] [place] [address] 02/15/2025 10:45 AM CONTRACT ADMINISTRATION MANAGER Office Visit [facility] [place] [id number] [place] [address] Dale Shahid MD [facility], [address] [place] [id number] documented as of this encounter Visit Diagnoses Diagnosis Sciatica documented in this encounter
--- OUTSIDE RECORDS SUMMARY | 2024-04-11 05:37 | XMS_ITS | Encounter Summary ---
Author Organization [facility] Address [address] [place] [address]. [place], [place] [id number] [place] [id number] Care Team Providers Care Naturopathic Physician Name Role Phone José Schaffer MD Primary Care Provider Unava ilable Reason for Visit * Reason Comments Procedure (SCAN) Encounter Details Date Type Department Care Team (Late Contact Info) Description 04/29/2017 Scan HEALTH INFO [facility] Scanned, Documents Procedure (SCAN) Social History Tobacco Use Types Packs/Day Years Used Date Smoking Tobacco: Never Assessed PHQ-2 Answer Date Recorded PHQ-2 Score - If the patient scores above 3, please move on to questions 3-9 0 08/22/2020 Sex and Gender Information Value Date Recorded Sex Assigned at Not on file Legal Sex Male 7:33 PM CDT Gender Identity Male 06/12/2021 5:16 AM DIAZO TECHNICIAN Sexual Orientation Straight 06/28/2021 10 :21 AM CDT COVID-19 Exposure Response Date Recorded In the last month, have you been in contact with someone who was confirmed or suspected to have Coronavirus / COVID-19? No / Unsure 08/22/2020 7:54 AM CDT documented as of this encounter Plan of Treatment Upcoming Encounters Date Type Department Care Team ([facility] Contact Info) Description 08/05/2024 10:00 AM CDT Office Visit [facility] Family & Internal Medicine [facility] [id number] [place] [phone] Amado Mathew PA [address] [place] [address] 02/15/2025 10:45 AM DIAZO TECHNICIAN Office Visit [facility] [address] [place] [address] Dale Shahid MD [facility] [address] [place] [address] documented as of this encounter Procedures Procedure Name Priority Date/Time Associated Diagnosis Comments PROCEDURE GENERIC (SCAN ORDER) 04/29/2017 documented in this encounter Results * PROCEDURE GENERIC (04/29/2017) 04/29/2017 Narrative 04/29/2017 Ordered by an unspecified provider. us Documents Scanned SCANNING Final Result documented in this encounter Visit Diagnoses Not on filedocumented in this encounter Care Teams Naturopathic Physician Relationship Specialty Start Date End Date José Schaffer MD PCP - General INTERNAL MEDICINE 04/20/19 12/12/20 documented as of this encounter
--- OUTSIDE RECORDS SUMMARY | 2024-04-11 05:37 | XMS_ITS | Encounter Summary ---
Author Organization [facility] Address [address] [place] [address]. [place] [address] [place] [address] Care Team Providers Care Field Marketing Lead Name Role Phone José Schaffer MD Primary Care Provider Unava ilable Reason for Referral * Imaging (Emergency) - Closed Specialty Diagnoses / Procedures Referred By Contac t Referred To Contact RADIOLOGY Procedures CT ABD+PEL KIDNEY STONE Amrita Collazo MD [address] [place] [address] Phone: tel: fax: Referral ID Status Reason Start Date Expiration Date Visits Re quested Visits Authorized [id number] Closed 02/14/2020 03/15/2021 1 1 PING CAR SERVICE ATTENDANT Reason for Visit * Reason Comments Abdominal Pain Encounter Details Date Type Department Care Team (Late st Contact Info) Description 02/14/2020 2:11 AM SLEEPING CAR SERVICE ATTENDANT - 02/14/2020 6:25 AM SLEEPING CAR SERVICE ATTENDANT Emergency [facility] Emergency Room [address] [place] [address] Amrita Collazo MD [address] [place], [place] [id number] Abdominal Pain Discharge Disposition: Home or Self Care (Routine [...] CDT Gender Identity Male 06/12/2021 5:16 AM SLEEPING CAR SERVICE ATTENDANT Sexual Orientation Straight 06/28/2021 10 :21 AM CDT COVID-19 Exposure Response Date Recorded In the last month, have you been in contact with someone who was confirmed or suspected to have Coronavirus / COVID-19? No / Unsure 02/14/2020 2:27 AM SLEEPING CAR SERVICE ATTENDANT documented as of this encounter Last Filed Vital Signs Vital Sign Reading Time Taken Comments Blood Pressure 140/90 02/14/2020 6:20 AM SLEEPING CAR SERVICE ATTENDANT Pulse 73 02/14/2020 2:27 AM SLEEPING CAR SERVICE ATTENDANT Temperature 35.9 ??C (96.6 ??F) 02/14/2020 2:27 AM CS T Respiratory Rate 18 02/14/2020 2:27 AM SLEEPING CAR SERVICE ATTENDANT Oxygen Saturation 97% 02/14/2020 2:27 AM SLEEPING CAR SERVICE ATTENDANT Inhaled Oxygen Concentration - - Weight 116.6 kg (257 lb) 02/14/2020 2:27 AM SLEEPING CAR SERVICE ATTENDANT Height 182.9 cm (6') 02/14/2020 2:27 AM SLEEPING CAR SERVICE ATTENDANT Body Mass Index 34.86 02/14/2020 2:27 AM SLEEPING CAR SERVICE ATTENDANT documented in this encounter Discharge Instructions * Discharge Instructions* Amrita Collazo MD - 02/14/2020 5:47 AM SLEEPING CAR SERVICE ATTENDANT Your blood test in the ER did not show signs of a significant infection. Your kidney function was elevated to 1.67. Your CAT scan showed a 2 mm stone close to your right side of the bladder. Please take the medication as prescribed. You may take ibuprofen if needed for additional pain relief but keep in mind ibuprofen can affect your kidneys and your kidney function was slightly elevated as I stated earlier. Your urine test did not show signs of a UTI. Return to the ER immediately if you have any new or worsening symptoms such as severe pain, severe nausea and vomiting, fevers, difficulty urinating or pain with urination. PING CAR SERVICE ATTENDANT PING CAR SERVICE ATTENDANT * Attachments The following attachments cannot be sent through Care Everywhere. * Kidney Stones in Adults ([place]) documented in this encounter Medications at Time of Discharge potassium citrate CR 10 MEQ (1080 MG) tablet Take 1 tablet (10 mEq total) by mouth 3 (three) times daily with meals. acetaminophen (TYLENOL) 500 MG tablet Take 2 tablets (1,000 mg total) by mouth 3 (three) times a day for 5 days. 30 tablet 02/14/2020 0 atorvastatin 20 MG tablet Take 20 mg by mouth nightly at bedtime. 1 levothyroxine 125 MCG tablet Take 125 mcg by mouth every morning. 1 ondansetron 4 MG disintegrating tablet Take 1 tablet (4 mg total) by mouth every 8 (eight) hours as needed for Nausea. 9 tablet 02/14/2020 0 tamsulosin (FLOMAX) 0.4 MG Cap Take 1 capsule (0.4 mg total) by mouth daily for 7 days. 7 capsule 02/14/2020 0 documented as of this encounter ED Notes * Melanie Cornoado RN - 02/14/2020 2:28 AM CST Patient here with complaints of right lower quadrant pain that started about 2345. The pian is constant and has remained the same intensity since it started. Denies fevers, urinary symptoms, diarrheabut does admit to some nausea. PING CAR SERVICE ATTENDANT * Amrita Collazo MD - 02/14/2020 2:23 AM CST Chief Complaint Chief Complaint Patient presents with ??? Abdominal Pain History of Present Illness Patient is a 64-year-old male past medical history of hyperlipidemia, renal stones who presents to the ER for evaluation of right lower quad abdominal pain that started tonight. Patient endorses nausea and vomiting. Denies any fevers, chills, chest pain, shortness of breath, dysuria, hematuria, penile pain, testicular pain or swelling. Medical History ALLERGIES: No Known Allergies MEDICATIONS: Prior to Admission medications Medication Sig Start Date End Date Taking? Authorizing Provider acetaminophen (TYLENOL) 500 MG tablet Take 2 tablets (1,000 mg total) by mouth 3 (three) times a day for 5 days. 02/14/20 02/19/20 Yes Amrita Collazo MD ondansetron 4 MG disintegrating tablet Take 1 tablet (4 mg total) by mouth every 8 (eight) hours asneeded for Nausea. 02/14/20 02/17/20 Yes Amrita Collazo MD tamsulosin (FLOMAX) 0.4 MG Cap Take 1 capsule (0.4 mg total) by mouth daily for 7 days. 02/14/20 02/21/20 Yes Amrita Collazo MD atorvastatin 20 MG tablet Take 20 mg by mouth nightly at bedtime. Doc Abstract levothyroxine 125 MCG tablet Take 125 mcg by mouth every morning. Doc Abstract potassium citrate CR 10 MEQ (1080 MG) tablet Take 10 mEq by mouth 3 (three) times daily with meals.Doc Abstract PAST MEDICAL HISTORY: Past Medical History: Diagnosis Date ??? Disease of thyroid gland ??? Hypercholesterolemia ??? Kidney stones PAST SURGICAL HISTORY: Past Surgical History: Procedure Laterality Date ??? LITHOTRIPSY FAMILY HISTORY: Family History Problem Relation Name Age of Onset ??? Diabetes Mother ??? Heart Disease Father SOCIAL HISTORY: Social History Tobacco Use ??? Smoking status: Never Smoker ??? Smokeless tobacco: Never Used Substance Use Topics ??? Alcohol use: Yes Comment: occasional 2-3 weeks ??? Drug use: No Review of Systems Review of Systems Constitutional: Negative for chills and fever. HENT: Negative for congestion and rhinorrhea. Eyes: Negative for redness. Respiratory: Negative for shortness of breath. Cardiovascular: Negative for chest pain. Gastrointestinal: Positive for abdominal pain, nausea and vomiting. Negative for diarrhea. Genitourinary: Negative for dysuria. Musculoskeletal: Negative for back pain. Skin: Negative for rash. Neurological: Negative for light-headedness and headaches. Psychiatric/Behavioral: Negative for confusion. Physical Exam Filed Vitals: 02/14/20 0227 BP: (!) 147/97 Pulse: 73 Resp: 18 Temp: 96.6 ??F (35.9 ??C) TempSrc: Tympanic SpO2: 97% Weight: 116.6 kg (257 lb) Height: 6' (1.829 m) Physical Exam Constitutional: General: He is not in acute distress. Appearance: He is not diaphoretic. HENT: Head: Normocephalic and atraumatic. Eyes: Conjunctiva/sclera: Conjunctivae normal. Neck: Musculoskeletal: Neck supple. Cardiovascular: Rate and Rhythm: Normal rate and regular rhythm. Pulmonary: Effort: Pulmonary effort is normal. Breath sounds: Normal breath sounds. Abdominal: General: Bowel sounds are normal. Palpations: Abdomen is soft. Tenderness: There is no abdominal tenderness. Genitourinary: Comments: No penile tenderness testicular tenderness. No testicular swelling. Inguinal canals patent bilaterally. Musculoskeletal: General: No deformity. Skin: General: Skin is warm. Capillary Refill: Capillary refill takes less than 2 seconds. Neurological: General: No focal deficit present. Mental Status: He is alert. Diagnostic Studies / Procedures ELECTROCARDIOGRAMS: No results found for this visit on 02/14/20. LABORATORY STUDIES: Results for orders placed or performed during the hospital encounter of 02/14/20 CBC W/DIFF AUTOMATED Result Value Ref Range WBC 4.9 4.4 - 11.0 x10'3/uL RBC 4.54 4.50 - 5.90 x10'6/uL HGB 14.0 14.0 - 17.5 G/DL HCT 40.9 (L) 41.5 - 50.4 % MCV 90.1 80.0 - 96.0 FL MCH 30.8 26.5 - 31.4 PG MCHC 34.2 31.9 - 34.8 G/DL RDW 13.6 12.3 - 14.3 % PLT 262 151 - 353 x10'3/uL MPV 9.1 (L) 9.7 - 11.9 FL RBC MORPHOLOGY NORMAL PLT MORPH. NORMAL WBC MORPHOLOGY NORMAL LYMPHOCYTES 11.8 (L) 15.8 - 45.0 % NEUTROPHILS 75.5 (H) 42.1 - 71.9 % MONOCYTES 9.0 5.7 - 12.5 % EOSINOPHILS 2.9 0.0 - 5.6 % BASOPHILS 0.4 0.0 - 1.3 % ABS. NEUTROPHILS TOTAL 3.71 1.40 - 6.00 x10'3/uL IMMATURE GRANS 0.4 0.0 - 0.5 % ABS. LYMPHOCYTES 0.58 (L) 0.80 - 4.70 x10'3/uL COMPREHENSIVE METABOLIC PANEL Result Value Ref Range GLUCOSE 200 (H) 70 - 99 MG/DL BUN 23 (H) 7 - 18 MG/DL CREATININE S/P/B 1.67 (H) 0.7 - 1.3 MG/DL SODIUM 142 136 - 145 MMOL/L POTASSIUM 4.2 3.5 - 5.1 MMOL/L CHLORIDE S/P/B 104 100 - 108 MMOL/L CO2 27.8 21 - 32 MMOL/L CALCIUM 9.0 8.5 - 10.1 MG/DL BILIRUBIN TOTAL S/P/B 0.8 0.2 - 1.2 MG/DL TOTAL PROTEIN S/P/B 7.1 6.4 - 8.2 G/DL ALBUMIN S/P/B 3.7 3.4 - 5.0 G/DL AST 18 15 - 37 U/L ALT 38 16 - 60 U/L ALKALINE PHOSPHATASE S/P/B 72 50 - 136 U/L ANION GAP 10.2 5 - 15 MMOL/L BUN CREATININE RATIO 13.8 6 - 26 A/G RATIO 1.1 1.0 - 2.0 RATIO eGFR Non-Afr. Amer. 42 (L) >90 ML/MIN/1.73 M2 eGFR Afr. Amer. 49 (L) >90 ML/MIN/1.73 M2 LIPASE Result Value Ref Range LIPASE 199 73 - 393 UNITS/L LACTIC ACID Result Value Ref Range LACTIC ACID 1.9 0.4 - 2.0 MMOL/L URINALYSIS, AUTO, COMPLETE Result Value Ref Range COLOR (U) YELLOW TRANSPARENCY CLEAR Specific [place] (U) >1.030 (H) 1.000 - 1.030 U PH 6.0 5.0 - 9.0 LEUKOCYTE ESTERASE NEGATIVE NEGATIVE NITRITES NEGATIVE NEGATIVE PROTEIN (U) NEGATIVE NEGATIVE URINE GLUCOSE 2+ (A) NEGATIVE U KETONES NEGATIVE NEGATIVE BILIRUBIN (U) NEGATIVE NEGATIVE BLOOD 1+ (A) NEGATIVE WBC/HPF 0-5 0 - 5 /HPF RBC/HPF 0-5 0 - 5 /HPF EPI/HPF RARE /HPF CULTURE & SENSITIVITY INDICATED? CULTURE IS NOT INDICATED IMAGING STUDIES CT ABD+PEL KIDNEY STONE (Results Pending) ED Course / Medical Decision Making MDM Number of Diagnoses or Management Options Diagnosis management comments: Differential includes appendicitis versus nephrolithiasis versus UTIversus pyelonephritis versus other intra-abdominal pathology Work-up in the ER shows right-sided 2 mm nephrolithiasis. No significant lab abnormalities except an elevated creatinine. No signs of UTI. Patient had symptom improvement in the ER. Patient be discharged home with pain medication, Zofran, tamsulosin instructions to follow-up with his primary care physician return to the ER for any new or worsening symptoms. Diagnosis: Nephrolithiasis Clinical Impression Renal stone (Primary) Disposition: Discharge Amrita Collazo MD 02/14/20 0548 PING CAR SERVICE ATTENDANT documented in this encounter Plan of Treatment Upcoming Encounters Date Type Department Care Team (Late st Contact Info) Description 08/05/2024 10:00 AM CDT Office Visit [facility] - [place] [address] [place] [address] [place] [address] [place] [address] 02/15/2025 10:45 AM SLEEPING CAR SERVICE ATTENDANT Office Visit [facility] [address] [place] [address] Dale Shahid MD [facility], [address] [place], [place] [id number] documented as of this encounter Procedures Procedure Name Priority Date/Time Associated Diagnosis Comments URINALYSIS, AUTO, COMPLETE STAT 02/14/2020 5:27 AM SLEEPING CAR SERVICE ATTENDANT COMPREHENSIVE METABOLIC PANEL STAT 02/14/2020 3:20 AM SLEEPING CAR SERVICE ATTENDANT LACTIC ACID STAT 02/14/2020 3:20 AM SLEEPING CAR SERVICE ATTENDANT CBC W/DIFF AUTOMATED STAT 02/14/2020 3:20 AM SLEEPING CAR SERVICE ATTENDANT LIPASE STAT 02/14/2020 3:20 AM SLEEPING CAR SERVICE ATTENDANT CT ABD+PEL KIDNEY STONE STAT 02/14/2020 3:01 AM SLEEPING CAR SERVICE ATTENDANT documented in this encounter Results * (ABNORMAL) URINALYSIS, AUTO, COMPLETE (02/14/2020 5:27 AM SLEEPING CAR SERVICE ATTENDANT) COLOR (U) YELLOW 02/14/2020 5:41 AM [facility] TRANSPARENCY CLEAR 02/14/2020 5:41 AM [facility] SPECIFIC GRAVITY (U) >1.030(H) 1.000 - 1.030 02/14/2020 5:41 AM [facility] U PH 6.0 5.0 - 9.0 02/14/2020 5:41 AM [facility] LEUKOCYTES (U) NEGATIVE NEGATIVE 02/14/2020 5:41 AM [facility] NITRITES NEGATIVE NEGATIVE 02/14/2020 5:41 AM [facility] PROTEIN (U) NEGATIVE NEGATIVE 02/14/2020 5:41 AM [facility] URINE GLUCOSE 2+(A) NEGATIVE 02/14/2020 5:41 AM [facility] KETONES MG/DL (U) NEGATIVE NEGATIVE 02/14/2020 5:41 AM [facility] BILIRUBIN (U) NEGATIVE NEGATIVE 02/14/2020 5:41 AM [facility] BLOOD (U) 1+(A) NEGATIVE 02/14/2020 5:41 AM [facility] WBC/HPF 0-5 0 - 5 /HPF 02/14/2020 5:41 AM [facility] RBC/HPF 0-5 0 - 5 /HPF 02/14/2020 5:41 AM [facility] EPI/HPF RARE /HPF 02/14/2020 5:41 AM [facility] CULTURE & SENSITIVITY INDICATED? CULTURE IS NOT INDICATED 02/14/2020 5:41 AM [facility] URINE SPECIMEN OBTAINED BY CLEAN CATCH PROCEDURE / Unknown 02/14/2020 5:27 AM SLEEPING CAR SERVICE ATTENDANT us Amrita Collazo MD URINE ORDERABLES Final Result Performing Organization Address [facility]/ZIP Co de Phone Number [facility] [address] [place] [address], [place] [phone] * LACTIC ACID (02/14/2020 3:20 AM SLEEPING CAR SERVICE ATTENDANT) LACTIC ACID VENOUS 1.9 0.4 - 2.0 MMOL/L 02/14/2020 3:51 AM SLEEPING CAR SERVICE ATTENDANT [facility] 02/14/2020 3:20 AM SLEEPING CAR SERVICE ATTENDANT us Amrita Collazo MD LABORATORY Final Result Performing Organization Address [facility] de Phone Number [facility] [address] [place] [address], [place] [phone] * LIPASE (02/14/2020 3:20 AM SLEEPING CAR SERVICE ATTENDANT) LIPASE 199 73 - 393 UNITS/L 02/14/2020 4:03 AM SLEEPING CAR SERVICE ATTENDANT [facility] 02/14/2020 3:20 AM SLEEPING CAR SERVICE ATTENDANT us Amrita Collazo MD LABORATORY Final Result Performing Organization Address [facility] Co de Phone Number [facility] [address] [place] [address], [place] [phone] * (ABNORMAL) COMPREHENSIVE METABOLIC PANEL (02/14/2020 3:20 AM SLEEPING CAR SERVICE ATTENDANT) GLUCOSE 200(H) 70 - 99 MG/DL 02/14/2020 4:03 AM SLEEPING CAR SERVICE ATTENDANT [facility] BUN 23(H) 7 - 18 MG/DL 02/14/2020 4:03 AM SLEEPING CAR SERVICE ATTENDANT [facility] CREATININE S/P/B 1.67(H) 0.7 - 1.3 MG/DL 02/14/2020 4:03 AM [facility] SODIUM S/P/B 142 136 - 145 MMOL/L 02/14/2020 4:03 AM [facility] POTASSIUM S/P/B 4.2 3.5 - 5.1 MMOL/L 02/14/2020 4:03 AM [facility] CHLORIDE S/P/B 104 100 - 108 MMOL/L 02/14/2020 4:03 AM [facility] CO2 27.8 21 - 32 MMOL/L 02/14/2020 4:03 AM [facility] CALCIUM S/P/B 9.0 8.5 - 10.1 MG/DL 02/14/2020 4:03 AM [facility] BILIRUBIN TOTAL S/P/B 0.8 0.2 - 1.2 MG/DL 02/14/2020 4:03 AM [facility] TOTAL PROTEIN S/P/B 7.1 6.4 - 8.2 G/DL 02/14/2020 4:03 AM [facility] ALBUMIN S/P/B 3.7 3.4 - 5.0 G/DL 02/14/2020 4:03 AM [facility] AST 18 15 - 37 U/L 02/14/2020 4:03 AM [facility] ALT 38 16 - 60 U/L 02/14/2020 4:03 AM [facility] ALKALINE PHOSPHATASE S/P/B 72 50 - 136 U/L 02/14/2020 4:03 AM [facility] ANION GAP 10.2 5 - 15 MMOL/L 02/14/2020 4:03 AM [facility] BUN CREATININE RATIO 13.8 6 - 26 02/14/2020 4:03 AM SLEEPING CAR SERVICE ATTENDANT [facility] A/G RATIO 1.1 1.0 - 2.0 RATIO 02/14/2020 4:03 AM [facility] EGFR NON-AFR. AMER. 42(L) >90 ML/MIN/1.7 3 M2 02/14/2020 4:03 AM [facility] EGFR AFR. AMER. 49(L) >90 ML/MIN/1.7 3 M2 02/14/2020 4:03 AM [facility] Comment: NOTE: eGFR is not calculated for patients <18 years of age. This is an estimated GFR (CKD EPI) and should not be used for calculating drug doses. 02/14/2020 3:20 AM SLEEPING CAR SERVICE ATTENDANT Amrita Collazo MD LABORATORY Final Result [facility] [address] [place] [address], * (ABNORMAL) CBC W/DIFF AUTOMATED (02/14/2020 3:20 AM SLEEPING CAR SERVICE ATTENDANT) WBC 4.9 4.4 - 11.0 x10'3/uL 02/14/2020 3:57 AM [facility] RBC 4.54 4.50 - 5.90 x10'6/uL 02/14/2020 3:57 AM [facility] HGB 14.0 14.0 - 17.5 G/DL 02/14/2020 3:57 AM [facility] HCT 40.9(L) 41.5 - 50.4 % 02/14/2020 3:57 AM [facility] MCV 90.1 80.0 - 96.0 FL 02/14/2020 3:57 AM [facility] MCH 30.8 26.5 - 31.4 PG 02/14/2020 3:57 AM [facility] MCHC 34.2 31.9 - 34.8 G/DL 02/14/2020 3:57 AM [facility] RDW 13.6 12.3 - 14.3 % 02/14/2020 3:57 AM [facility] PLT 262 151 - 353 x10'3/uL 02/14/2020 3:57 AM [facility] MPV 9.1(L) 9.7 - 11.9 FL 02/14/2020 3:57 AM [facility] RBC MORPHOLOGY NORMAL 02/14/2020 3:57 AM [facility] PLT MORPH. NORMAL 02/14/2020 3:57 AM [facility] WBC MORPHOLOGY NORMAL 02/14/2020 3:57 AM [facility] LYMPHOCYTES % 11.8(L) 15.8 - 45.0 % 02/14/2020 3:57 AM [facility] NEUTROPHILS % 75.5(H) 42.1 - 71.9 % 02/14/2020 3:57 AM [facility] MONOCYTES % 9.0 5.7 - 12.5 % 02/14/2020 3:57 AM [facility] EOSINOPHILS 2.9 0.0 - 5.6 % 02/14/2020 3:57 AM [facility] BASOPHILS 0.4 0.0 - 1.3 % 02/14/2020 3:57 AM [facility] ABS. NEUTROPHILS TOTAL 3.71 1.40 - 6.00 x10'3/uL 02/14/2020 3:57 AM [facility] IMMATURE GRANS % 0.4 0.0 - 0.5 % 02/14/2020 3:57 AM [facility] ABS. LYMPHOCYTES 0.58(L) 0.80 - 4.70 x10'3/uL 02/14/2020 3:57 AM SLEEPING CAR SERVICE ATTENDANT [facility] 02/14/2020 3:20 AM SLEEPING CAR SERVICE ATTENDANT Amrita Collazo MD LABORATORY Final Result [facility] [address] [place] [phone], * CT ABD+PEL KIDNEY STONE (02/14/2020 3:01 AM SLEEPING CAR SERVICE ATTENDANT) Anatomical Region Laterality Modality Abdomen Computed Tomogra phy 02/14/2020 10:0 5 AM SLEEPING CAR SERVICE ATTENDANT Narrative 02/14/2020 10:08 AM SLEEPING CAR SERVICE ATTENDANT IMAGING STUDIES: ??CT ABD+PEL KIDNEY STONE ? DATE: ??02/14/2020 2:32 AM COMPARISON STUDIES: No previous available. ?? CLINICAL HISTORY: ??RLQ abd pain, eval appendix if possible as well Flank pain, kidney stone suspected ? . TECHNIQUE: ??Helical axial images were acquired from the lung bases to symphysis pubis. ??Sagittal and coronal reconstructions were obtained. Radiation dose reduction technique was utilized. FINDINGS AND IMPRESSION (Limited exam due to the lack of intravenous contrast administration): LOWER CHEST: 1. ??Lungs: Lungs bases are clear. No pleural effusion. 2. ??Visible mediastinum: No lesions. ABDOMEN: 1. ??Liver: No obvious focal lesions within the limitations of this noncontrast enhanced CT. 2. ??Gallbladder: Normal in appearance. Noncalcified gallstones might not be visible on CT.. 3. ??Spleen: No lesions, no splenomegaly. 4. ??Pancreas: No focal lesions. 5. ??Adrenal glands: No focal lesions. 6. ??Kidneys: Bilateral parapelvic cysts and small bilateral 3 mm or smaller nonobstructing stones. Mild right perinephric edema and right mild hydronephrosis and hydroureter secondary to a stone just past the UVJ, 2 mm in diameter. ? 7. ??Retroperitoneal space: No lymphadenopathy or masses. No mesenteric lymphadenopathy or edema. 8. ??Stomach and bowel: Nonobstructive pattern. No free air. 9. ??Aorta: No significant atherosclerotic disease or aneurysmal dilation. ?? PELVIS: 1. ??Appendix: Not pathologically distended. 2. ??Colon and rectum: Not obstructed. No acute diverticulitis. 3. ??Prostate: Mildly enlarged, correlate clinically. 4. ??Pelvic space: No free fluid. Small left fatty hernia. BONES AND OTHER INCIDENTAL FINDINGS: 1. ??Bones: Degenerative changes of the spine, sacroiliac joints, hips. 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 ? Preliminary report rendered by Dr. Roger Garrett immediately after the examination was completed. ? Voice recognition software utilized. Interpreted By: Quinten Michel, 02/14/2020 10:05 AM Procedure Note Quinten Michel MD - 02/14/2020 IMAGING STUDIES: CT ABD+PEL KIDNEY STONE DATE: 02/14/2020 2:32 AM COMPARISON STUDIES: No previous available. CLINICAL HISTORY: RLQ abd pain, eval appendix if possible as well Flank pain, kidney stone suspected . TECHNIQUE: Helical axial images were acquired from the lung bases to symphysis pubis. Sagittal and coronal reconstructions were obtained. Radiation dose reduction technique was utilized. FINDINGS AND IMPRESSION (Limited exam due to the lack of intravenous contrast administration): LOWER CHEST: 1. Lungs: Lungs bases are clear. No pleural effusion. 2. Visible mediastinum: No lesions. ABDOMEN: 1. Liver: No obvious focal lesions within the limitations of this noncontrast enhanced CT. 2. Gallbladder: Normal in appearance. Noncalcified gallstones might notbe visible on CT.. 3. Spleen: No lesions, no splenomegaly. 4. Pancreas: No focal lesions. 5. Adrenal glands: No focal lesions. 6. Kidneys: Bilateral parapelvic cysts and small bilateral 3 mm orsmaller nonobstructing stones. Mild right perinephric edema and right mild hydronephrosis and hydroureter secondary to a stone just past the UVJ, 2mm in diameter. 7. Retroperitoneal space: No lymphadenopathy or masses. No mesenteric lymphadenopathy or edema. 8. Stomach and bowel: Nonobstructive pattern. No free air. 9. Aorta: No significant atherosclerotic disease or aneurysmal dilation. PELVIS: 1. Appendix: Not pathologically distended. 2. Colon and rectum: Not obstructed. No acute diverticulitis. 3. Prostate: Mildly enlarged, correlate clinically. 4. Pelvic space: No free fluid. Small left fatty hernia. BONES AND OTHER INCIDENTAL FINDINGS: 1. Bones: Degenerative changes of the spine, sacroiliac joints, hips. 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 Preliminary report rendered by Dr. Roger Garrett immediately after the examination was completed. Voice recognition software utilized. Interpreted By: Quinten Michel, 02/14/2020 10:05 AM Amrita Collazo MD CT Final Result documented in this encounter Visit Diagnoses Diagnosis Renal stone- Primary Calculus of kidney documented in this encounter Administered Medications Inactive Administered Medications - up to 3 most recent administrations Medication Order MAR Action Action Date Dose Rate Site ketorolac (TORADOL) injection 15 mg 15 mg, Intravenous, Once, 1 dose, On 02/14/20 at 0230, For IV administration, give over 15 seconds. Given 02/14/2020 3:25 AM SLEEPING CAR SERVICE ATTENDANT 15 mg ondansetron (ZOFRAN) injection 4 mg 4 mg, Intravenous, Once, 1 dose, On 02/14/20 at 0230, IV push over 2-5 minutes. Given 02/14/2020 3:25 AM SLEEPING CAR SERVICE ATTENDANT 4 mg sodium chloride 0.9% infusion at 999 mL/hr, Intravenous, Once, 1 dose, On 02/14/20 at 0230 New Bag 02/14/2020 3:23 AM SLEEPING CAR SERVICE ATTENDANT 999 mL/hr tamsulosin (FLOMAX) capsule 0.4 mg 0.4 mg, Oral, Once, 1 dose, On 02/14/20 at 0600 Given 02/14/2020 6:23 AM SLEEPING CAR SERVICE ATTENDANT 0.4 mg documented in this encounter Active and Recently Administered Medications Due to Daylight Saving Time, this section may contain times in both CDT and SLEEPING CAR SERVICE ATTENDANT. Scheduled Medication Order 02/12/2020 02/13/2020 02/14/2020 ketorolac (TORADOL) injection 15 mg (COMPLETED) 15 mg, Intravenous, Once, 1 dose, On 02/14/20 at 0230, For IV administration, give over 15 seconds. 0325 (Given - Provid er: Melanie Coronado RN) ondansetron (ZOFRAN) injection 4 mg (COMPLETED) 4 mg, Intravenous, Once, 1 dose, On 02/14/20 at 0230, IV push over 2-5 minutes. 0325 (Given - Provid er: Melanie Coronado RN) sodium chloride 0.9% infusion (COMPLETED) at 999 mL/hr, Intravenous, Once, 1 dose, On 02/14/20 at 0230 0323 (New Bag - Prov ider: Melanie Coronado RN) tamsulosin (FLOMAX) capsule 0.4 mg (COMPLETED) 0.4 mg, Oral, Once, 1 dose, On 02/14/20 at 0600 0623 (Given - Provid er: Melanie Coronado RN) documented in this encounter Care Teams Field Marketing Lead Relationship Specialty Start Date End Date José Schaffer MD PCP - General INTERNAL MEDICINE 04/20/19 12/12/20 documented as of this encounter
--- OUTSIDE RECORDS SUMMARY | 2024-04-11 05:37 | XMS_ITS | Encounter Summary ---
Author Organization [facility] Address [address] [place] [address]. [place] [address] [place] [address] Care Team Providers Care Director Of Accounts Payable Name Role Phone Unavailable Primary Care Provider Unavailabl e Encounter Details Date Type Department Care Team (Late st Contact Info) Description 10/19/2004 Abstract [facility] CONVERSION [address] [place] [address] Sudheer Soriano PA [address] [place] [id number] Social History Tobacco Use Types Packs/Day Years Used Date Smoking Tobacco: Never Assessed Sex and Gender Information Value Date Recorded Sex Assigned at Not on file Legal Sex Male 7:33 PM CDT Gender Identity Male 06/12/2021 5:16 AM DONOR RELATIONS MANAGER Sexual Orientation Straight 06/28/2021 10 :21 AM CDT documented as of this encounter Plan of Treatment Upcoming Encounters Date Type Department Care Team (Late st Contact Info) Description 08/05/2024 10:00 AM CDT Office Visit [facility] Family & Internal Medicine [facility] [address] [place] [address] [place] [address] [place], [place] [id number] 02/15/2025 10:45 AM DONOR RELATIONS MANAGER Office Visit [facility] [address] [place] [address] Dale Shahid MD [facility], [address] [place] [address] documented as of this encounter Visit Diagnoses Not on filedocumented in this encounter
--- OUTSIDE RECORDS SUMMARY | 2024-04-11 05:37 | XMS_ITS | Encounter Summary ---
Author Organization [facility] Address [address] [place] [address]. [place] [address] [place] [address] Care Team Providers Care Ice Plant Operator Name Role Phone Unavailable Primary Care Provider Unavailabl e Encounter Details Date Type Department Care Team (Late st Contact Info) Description 06/23/2003 Abstract [facility] CONVERSION [address] [place] [address] , Generic ConversionMD Social History Tobacco Use Types Packs/Day Years Used Date Smoking Tobacco: Never Assessed Sex and Gender Information Value Date Recorded Sex Assigned at Not on file Legal Sex Male 7:33 PM CDT Gender Identity Male 06/12/2021 5:16 AM FOUNDRY SUPERINTENDANT Sexual Orientation Straight 06/28/2021 10 :21 AM CDT documented as of this encounter Plan of Treatment Upcoming Encounters Date Type Department Care Team (Late st Contact Info) Description 08/05/2024 10:00 AM CDT Office Visit [facility] Family & Internal Medicine [facility] [address] [place] [address] [place] [address] [place] [address] 02/15/2025 10:45 AM FOUNDRY SUPERINTENDANT Office Visit [facility] [address] [place] [address] Dale Shahid MD [facility], [address] [place] [address] documented as of this encounter Visit Diagnoses Not on filedocumented in this encounter
--- OUTSIDE RECORDS SUMMARY | 2024-04-11 05:37 | XMS_ITS | Encounter Summary ---
Author Organization [facility] Address [address] [place] [address]. [place], [place] [address] [place] [address] Care Team Providers Care Disk Sharpener Name Role Phone José Schaffer MD Primary Care Provider Unava ilable Reason for Visit * Reason Comments Lab (SCAN) Encounter Details Date Type Department Care Team (Latest Contact Info) Description 11/12/2016 Scan [facility] Scanned, Documents [...] CDT Gender Identity Male 06/12/2021 5:16 AM ART SUPERVISOR Sexual Orientation Straight 06/28/2021 10 :21 [...] HOSPITAL Medical Group Family & Internal Medicine [address] [address] Amado Mathew PA [address] [place] [address] 02/15/2025 10:45 AM ART SUPERVISOR Office Visit [facility] [address] [place] [address] Dale Shahid MD [facility] [address] [place] [address] documented as of this encounter Procedures Procedure Name Priority Date/Time Associated Diagnosis Comments OUTSIDE LAB (SCAN ORDER) 11/12/2016 documented in this encounter Results * OUTSIDE LAB (SCAN) (11/12/2016) 11/12/2016 Narrative 11/12/2016 Ordered by an unspecified provider. us Documents Scanned SCANNING Final Result documented in this encounter Visit Diagnoses Not on filedocumented in this encounter Care Teams Disk Sharpener Relationship Specialty Start Date End Date José Schaffer MD PCP - General INTERNAL MEDICINE 04/20/19 12/12/20 documented as of this encounter
--- OUTSIDE RECORDS SUMMARY | 2024-04-11 05:37 | XMS_ITS | Encounter Summary ---
Author Organization [facility] Address [address] [place] [address]. [place] [address] [place] [address] Care Team Providers Care Automobile Mechanic Supervisor Name Role Phone Unavailable Primary Care Provider Unavailabl e Encounter Details Date Type Department Care Team (Late st Contact Info) Description 08/10/2004 Abstract [facility] CONVERSION [address] [place] [address] José Schaffer MD Social History Tobacco Use Types Packs/Day Years Used Date Smoking Tobacco: Never Assessed Sex and Gender Information Value Date Recorded Sex Assigned at Not on file Legal Sex Male 7:33 PM CDT Gender Identity Male 06/12/2021 5:16 AM CHAIN SALES CONSULTANT Sexual Orientation Straight 06/28/2021 10 :21 AM CDT documented as of this encounter Plan of Treatment Upcoming Encounters Date Type Department Care Team (Late st Contact Info) Description 08/05/2024 10:00 AM CDT Office Visit [facility] Family & Internal Medicine [facility] [address] [place] [address] [place] [address] [place] [address] 02/15/2025 10:45 AM CHAIN SALES CONSULTANT Office Visit [facility] [place] [id number] [place] [address] Dale Shahid MD [facility], [address] [place] [address] documented as of this encounter Visit Diagnoses Not on filedocumented in this encounter
--- OUTSIDE RECORDS SUMMARY | 2024-04-11 05:37 | XMS_ITS | Encounter Summary ---
Author Organization [facility] Address [address] [place] [address]. [place], [place] [address] [place] [address] Care Team Providers Care Supervisor Mapping Name Role Phone José Schaffer MD Primary Care Provider Maty ilshannan Encounter Details Date Type Department Care Team (Latest Contact Info) Description 08/31/2019 Travel Social History Tobacco Use Types Packs/Day Years Used Date Smoking Tobacco: Never Smokeless Tobacco: Never Alcohol Use Standard Drinks/Week Comments Yes 0 (1 standard drink = 0.6 oz pur e alcohol) occasional 2-3 weeks Sex and Gender Information Value Date Recorded Sex Assigned at Not on file Legal Sex Male 7:33 PM CDT Gender Identity Male 06/12/2021 5:16 AM STAKER SURVEYING Sexual Orientation Straight 06/28/2021 10 :21 AM [...] Description 08/05/2024 10:00 AM CDT Office Visit [facility] Family & Internal Medicine [facility] [address] [place] [address] [place] [address] [place] [address] 02/15/2025 10:45 AM STAKER SURVEYING Office Visit [facility] [address] [place] [address] Dale Shahid MD [facility], [address] [place] [address] documented as of this encounter Visit Diagnoses Not on filedocumented in this encounter Care Teams Supervisor Mapping Relationship Specialty Start Date End Date José Schaffer MD PCP - General INTERNAL MEDICINE 04/20/19 12/12/20 documented as of this encounter
--- OUTSIDE RECORDS SUMMARY | 2024-04-11 05:37 | XMS_ITS | Encounter Summary ---
Author Organization [facility] Address [address] [place] [address]. [place] [address] [place] [address] Care Team Providers Care Electrician Ship Name Role Phone Unavailable Primary Care Provider Unavailabl e Encounter Details Date Type Department Care Team (Late st Contact Info) Description 12/18/2002 Abstract [facility] CONVERSION [address] [place] [address] , Generic ConversionMD Social History Tobacco Use Types Packs/Day Years Used Date Smoking Tobacco: Never Assessed Sex and Gender Information Value Date Recorded Sex Assigned at Not on file Legal Sex Male 7:33 PM CDT Gender Identity Male 06/12/2021 5:16 AM VERIFICATION MANAGER Sexual Orientation Straight 06/28/2021 10 :21 AM CDT documented as of this encounter Plan of Treatment Upcoming Encounters Date Type Department Care Team (Late st Contact Info) Description 08/05/2024 10:00 AM CDT [facility] [address] [place] [address] [place] [address] [place] [address] 02/15/2025 10:45 AM VERIFICATION MANAGER Office Visit [facility] [address] [place] [address] Dale Shahid MD [facility], [address] [place] [address] documented as of this encounter Visit Diagnoses Not on filedocumented in this encounter
--- OUTSIDE RECORDS SUMMARY | 2024-04-11 05:37 | XMS_ITS | Encounter Summary ---
Author Organization [facility] Address [address] [place] [address]. [place] [address] [place] [address] Care Team Providers Care Physicist Solid [place] Name Role Phone Unavailable Primary Care Provider Unavailabl e Encounter Details Date Type Department Care Team (Late st Contact Info) Description 01/18/2006 Abstract [facility] CONVERSION [address] [place] [address] José Schaffer MD Social History Tobacco Use Types Packs/Day Years Used Date Smoking Tobacco: Never Assessed Sex and Gender Information Value Date Recorded Sex Assigned at Not on file Legal Sex Male 7:33 PM CDT Gender Identity Male 06/12/2021 5:16 AM SHIFT LAB TECHNICIAN Sexual Orientation Straight 06/28/2021 10 :21 AM CDT documented as of this encounter Plan of Treatment Upcoming Encounters Date Type Department Care Team (Late st Contact Info) Description 08/05/2024 10:00 AM CDT Office Visit [facility] Family & Internal Medicine [facility] [address] [place] [address] [place] [address] [place], [place] [id number] 02/15/2025 10:45 AM SHIFT LAB TECHNICIAN Office Visit [facility] [place] [address] [place] [address] Dale Shahid MD [facility], [address] [place] [address] documented as of this encounter Visit Diagnoses Not on filedocumented in this encounter
--- OUTSIDE RECORDS SUMMARY | 2024-04-11 05:37 | XMS_ITS | Encounter Summary ---
Author Organization [facility] Address [address] [place] [address]. [place], [place] [address] [place] [address] Care Team Providers Care Education Dean Name Role Phone José Schaffer MD Primary Care Provider Unava ilable Reason for Visit * Reason Comments Lab (SCAN) Encounter Details Date Type Department Care Team (Latest Contact Info) Description 05/21/2017 Scan [facility] Scanned, Documents [...] CDT Gender Identity Male 06/12/2021 5:16 AM FRANCHISE FIELD CONSULTANT Sexual Orientation Straight 06/28/2021 10 :21 [...] Description 08/05/2024 10:00 AM CDT Office Visit [facility] Family & Internal Medicine [address] [address] Amado Mathew PA [address] [place] [address] 02/15/2025 10:45 AM FRANCHISE FIELD CONSULTANT Office Visit [facility] [facility] [address] [place] [address] Dale Shahid MD [facility]., [address] [place] [address] documented as of this encounter Procedures Procedure Name Priority Date/Time Associated Diagnosis Comments OUTSIDE LAB (SCAN ORDER) 05/21/2017 documented in this encounter Results * OUTSIDE LAB (SCAN) (05/21/2017) 05/21/2017 Narrative 05/21/2017 Ordered by an unspecified provider. us Documents Scanned SCANNING Final Result documented in this encounter Visit Diagnoses Not on filedocumented in this encounter Care Teams Education Dean Relationship Specialty Start Date End Date José Schaffer MD PCP - General INTERNAL MEDICINE 04/20/19 12/12/20 documented as of this encounter
--- OUTSIDE RECORDS SUMMARY | 2024-04-11 05:37 | XMS_ITS | Encounter Summary ---
Author Organization [facility] Address [address] [place] [address]. [place], [place] [address] [place] [address] Care Team Providers Care C Programmer Name Role Phone José Schaffer MD Primary Care Provider Unava ilable Reason for Visit * Reason Comments Lab (SCAN) Encounter Details Date Type Department Care Team (Latest Contact Info) Description 05/13/2018 Scan [facility] Scanned, Documents [...] CDT Gender Identity Male 06/12/2021 5:16 AM CHIROPRACTIC CARE Sexual Orientation Straight 06/28/2021 10 :21 [...] HOSPITAL Medical Group Family & Internal Medicine [address] [address] Amado Mathew PA [address] [place] [address] 02/15/2025 10:45 AM CHIROPRACTIC CARE Office Visit [facility] [address] [place] [address] Dale Shahid MD Three [facility] [address] [place] [address] documented as of this encounter Procedures Procedure Name Priority Date/Time Associated Diagnosis Comments OUTSIDE LAB (SCAN ORDER) 05/13/2018 OUTSIDE LAB (SCAN ORDER) 05/13/2018 documented in this encounter Results * OUTSIDE LAB (SCAN) (05/13/2018) 05/13/2018 Narrative 05/13/2018 Ordered by an unspecified provider. us Documents Scanned SCANNING Final Result * OUTSIDE LAB (SCAN) (05/13/2018) 05/13/2018 Narrative 05/13/2018 Ordered by an unspecified provider. us Documents Scanned SCANNING Final Result documented in this encounter Visit Diagnoses Not on filedocumented in this encounter Care Teams C Programmer Relationship Specialty Start Date End Date José Schaffer MD PCP - General INTERNAL MEDICINE 04/20/19 12/12/20 documented as of this encounter
--- OUTSIDE RECORDS SUMMARY | 2024-04-11 05:37 | XMS_ITS | Encounter Summary ---
Author Organization [facility] Address [address] [place] [address]. [place], [place] [address] [place] [id number] Care Team Providers Care Fire Battalion Chief Name Role Phone Taj Schaffer MD Primary Care Provider Unava ilable Reason for Visit * Reason Comments Ankle Pain Encounter Details Date Type Department Care Team (Late st Contact Info) Description 07/30/2019 7:17 PM CDT - 07/30/2019 8:51 PM CDT Emergency [facility] Emergency Room [id number] [place] [address] Erika Pelaez MD Ankle Pain Discharge Disposition: Home or Self Care [...] CDT Gender Identity Male 06/12/2021 5:16 AM PROJECT FINANCE ANALYST Sexual Orientation Straight 06/28/2021 10 :21 AM CDT COVID-19 Exposure Response Date Recorded In the last month, have you been in contact with someone who was confirmed or suspected to have Coronavirus / COVID-19? No / Unsure 07/30/2019 5:27 PM CDT documented as of this encounter Last Filed Vital Signs Vital Sign Reading Time Taken Comments Blood Pressure 152/94 07/30/2019 7:18 PM CDT Pulse 72 07/30/2019 7:18 PM CDT Temperature 37.2 ??C (98.9 ??F) 07/30/2019 7:18 PM CD T Respiratory Rate 18 07/30/2019 7:18 PM CDT Oxygen Saturation 100% 07/30/2019 7:18 PM CDT Inhaled Oxygen Concentration - - Weight 124.7 kg (275 lb) 07/30/2019 7:17 PM CDT Height 182.9 cm (6') 07/30/2019 7:17 PM CDT Body Mass Index 37.3 07/30/2019 7:17 PM CDT documented in this encounter Discharge Instructions * Discharge Instructions* Erika Pelaez MD - 07/30/2019 8:11 PM CDT As discussed, please call your primary care provider for follow-up appointment. If you have continued ankle pain, you may need a repeat x-ray. Your X-ray did not show a broken bone today, however I am unsure what is causing your ankle swelling. Please rest your ankle, wear the Aircast as needed, and keep it elevated. You may use ice to helpimprove the swelling. Return to the emergency room if you cannot move your ankle at all due to severe pain, if it becomeswarm or red, if you develop a fever greater than 100.4 ??F, or for any other concerning symptoms. * Attachments The following attachments cannot be sent through Care Everywhere. * Ankle Sprain (Botswanan) documented in this encounter Medications at Time [...] as of this encounter ED Notes * Erika Pelaez MD - 07/30/2019 8:51 PM CDT Chief Complaint Chief Complaint Patient presents with ??? Ankle Pain History of Present Illness [facility] Patient 63-year-old male with past medical history of hyperlipidemia and hypothyroidism presenting with left ankle pain. Patient states he has rolled his right ankle multiple times, this morning he woke up and was found to have significant pain on the medial aspect of his right ankle by his heel. He reports some swelling, states he is able to walk on it and able to move it slightly, but has pain with full dorsiflexion. He denies any injury, states he usually knows when he sprained it. No numbness or tingling. No fever chills. Medical History ALLERGIES: No Known Allergies MEDICATIONS: [...] for chills and fever. HENT: Negative for rhinorrhea and sore throat. Eyes: Negative for visual disturbance. Respiratory: Negative for cough and shortness of breath. Cardiovascular: Negative for chest pain and palpitations. Gastrointestinal: Negative for abdominal pain, nausea and vomiting. Genitourinary: Negative for dysuria and hematuria. Musculoskeletal: Positive for arthralgias. Skin: Negative for rash. Neurological: Negative for headaches. Psychiatric/Behavioral: Negative for agitation. Physical Exam Filed Vitals: 07/30/19191607/30/191917 BP: (!) 152/94 (!) 152/94 Pulse: 72 72 Resp: 18 18 Temp: 98.9 ??F (37.2 ??C) 98.9 ??F (37.2 ??C) TempSrc: Tympanic SpO2: 100% 100% Weight: 124.7 kg (275 lb) Height: 6' (1.829 m) Physical Exam Constitutional: He is oriented to person, place, and time. He appears well- developed. No distress. HENT: Head: Atraumatic. Eyes: EOM are normal. Neck: Neck supple. Cardiovascular: Normal rate and regular rhythm. No murmur heard. Pulmonary/Chest: Effort normal and breath sounds normal. He has no wheezes. Abdominal: Soft. He exhibits no distension. There is no tenderness. Musculoskeletal: He exhibits no deformity. Obvious swelling on the medial aspect of the right ankle. No tenderness to palpation of the medial malleolus or lateral malleolus. Dorsalis pedis pulse 2+, posterior tibial signal present. Sensation and motor intact of the toes. Patient is able to plantarflex foot, he can dorsiflex foot, but has pain past 90 degrees. Achilles tendon intact. Neurological: He is alert and oriented to person, place, and time. Skin: Skin is warm and dry. Psychiatric: His behavior is normal. Nursing note and vitals reviewed. Diagnostic Studies / Procedures ELECTROCARDIOGRAMS: No results found for this visit on 07/30/19. LABORATORY STUDIES: No results found for this visit on 07/30/19. IMAGING STUDIES XR ANKLE RT M3V Final Result by User, [id number] ([birth year] 1949) History: Right ankle pain COMPARISON: None Report: Corticated calcifications are present adjacent to both the distal fibula and tibia along the malleoli regions. No acute appearing displaced fracture dislocation or aggressive bone lesion. Small effusion may be present. Mild soft tissue swelling about the ankle also noted.. Spurring is present about the calcaneus. IMPRESSION: No displaced acute appearing fracture lucency. Soft tissue swelling and probable small effusion with old fractures as above. Interpreted By: Ortiz Ledezma, 07/30/2019 7:45 PM ED Course / Medical Decision Making Pulse Ox Interpretation: Saturation: 100 Oxygen Delivery: Room air Interpretation: No hypoxia at this time. Data reviewed: All current, pertinent and timely studies (laboratory, imaging, and procedures) wereordered and results reviewed by Dr. Pelaez unless otherwise noted. Triage notes and available nursing notes reviewed. Previous medical record reviewed when available. Repeat vital signs reviewed. PCP: TAJ SCHAFFER MD MDM/PLAN 63-year-old male presenting with nontraumatic right ankle pain, swelling noted in the medial aspect, patient able to range the ankle. The ankle is not warm or red and the patient is able to move it, no concern for septic joint at this time, pulses intact, no concern for vascular injury, possibility of small fracture versus sprain. Plan for evaluation with x-ray. Patient declined pain medication. X-ray without acute findings. Patient does not have emergent medical condition requiring admission at this time. I discussed results with patient as well as diagnostic ambiguity, will give Aircast here, rest, ice, elevate as needed. Plan for outpatient primary care follow-up, I discussed strict return precautions. Patient verbalized understanding plan. Clinical Impression Right ankle pain (Primary) Disposition: Discharge Erika Pelaez MD 07/31/19 0022 Erika Pelaez MD 09/16/19 0953 * Melanie Roque RN - 07/30/2019 7:09 PM CDT Pt to ED with sore ankle. Pt states that last night in bed he felt his right ankle getting tight. Pt states he can stand on it but cannot walk due to the pain. Pt can't bend the ankle. Pt states no mechanism of injury, he states that in the past he had sprained the ankle but states he hasn't done anything to cause the pain at this time. Pt states he has been elevating the leg and took some aleve this morning with no relief and hasn't taken anything since. Pt is rating the pain 1/10 just sittinghere, but if he tries to move it or walk it goes up to 5/10. documented in this encounter Plan of Treatment Upcoming Encounters Date Type Department Care Team (Late st Contact Info) Description 08/05/2024 10:00 AM CDT Office Visit [facility] Family & Internal Medicine - [address] [address] [place] [address] [place] [address] 02/15/2025 10:45 AM PROJECT FINANCE ANALYST Office Visit [facility] [address] [place] [address] Dale Shahid MD [facility], [address] [place] [address] documented as of this encounter Procedures Procedure Name Priority Date/Time Associated Diagnosis Comments XR ANKLE RT M3V STAT 07/30/2019 7:38 PM CDT documented in this encounter Results * XR ANKLE RT M3V (07/30/2019 7:38 PM CDT) Anatomical Region Laterality Modality Ankle Radiographic June ging 07/30/2019 7:45 PM CDT Impressions 07/30/2019 7:47 PM CDT IMPRESSION: No displaced acute appearing fracture lucency. Soft tissue swelling and probable small effusion with old fractures as above. Interpreted By: Ortiz Ledezma, 07/30/2019 7:45 PM Narrative 07/30/2019 7:47 PM CDT History: Right ankle pain COMPARISON: None Report: Corticated calcifications are present adjacent to both the distal fibula and tibia along the malleoli regions. No acute appearing displaced fracture dislocation or aggressive bone lesion. Small effusion may be present. Mild soft tissue swelling about the ankle also noted.. Spurring is present about the calcaneus. Procedure Note Ortiz Ledezma MD - 07/30/2019 History: Right ankle pain COMPARISON: None Report: Corticated calcifications are present adjacent to both thedistal fibula and tibia along the malleoli regions. No acute appearingdisplaced fracture dislocation or aggressive bone lesion. Small effusion may be present. Mild soft tissue swelling about the ankle also noted.. Spurringis present about the calcaneus. IMPRESSION: No displaced acute appearing fracture lucency. Soft tissue swelling and probable small effusion with old fractures as above. Interpreted By: Ortiz Ledezma, 07/30/2019 7:45 PM us Erika Pelaez MD GENERAL IMAGING Final Resul t documented in this encounter Visit Diagnoses Diagnosis Right ankle pain- Primary Pain in joint, ankle and foot documented in this encounter Care Teams Fire Battalion Chief Relationship Specialty Start Date End Date Taj Schaffer MD PCP - General INTERNAL MEDICINE 04/20/19 12/12/20 documented as of this encounter
--- OUTSIDE RECORDS SUMMARY | 2024-04-11 05:37 | XMS_ITS | Encounter Summary ---
Author Organization [facility] Address [address] [place] [address]. [place], [place] [id number] [place] [address] Care Team Providers Care Waste Machine Operator Name Role Phone José Schaffer MD Primary Care Provider Unava ilable Reason for Visit * Reason Comments Image (SCAN) Encounter Details Date Type Department Care Team (Latest Contact Info) Description 09/10/2016 Scan HEALTH INFO SRVCS Scanned, Documents Image [...] CDT Gender Identity Male 06/12/2021 5:16 AM BOOM MASTER Sexual Orientation Straight 06/28/2021 10 :21 AM [...] & Internal Medicine [facility] [id number] [place] [address] Amado Mathew PA [address] [place] [address] 02/15/2025 10:45 AM BOOM MASTER Office Visit [facility] [address] [place] [address] Dale Shahid MD [facility] [address] [place] [address] documented as of this encounter Procedures Procedure Name Priority Date/Time Associated Diagnosis Comments IMAGE GENERIC 09/10/2016 documented in this encounter Results * IMAGE GENERIC (09/10/2016) Anatomical Region Laterality Modality Other 09/10/2016 Narrative 09/10/2016 Ordered by an unspecified provider. us Documents Scanned SCANNING Final Result documented in this encounter Visit Diagnoses Not on filedocumented in this encounter Care Teams Waste Machine Operator Relationship Specialty Start Date End Date José Schaffer MD PCP - General INTERNAL MEDICINE 04/20/19 12/12/20 documented as of this encounter
--- OUTSIDE RECORDS SUMMARY | 2024-04-11 05:37 | XMS_ITS | Encounter Summary ---
Author Organization [facility] Address [address] [place] [address]. [place], [place] [id number] [place] [address] Care Team Providers Care Environmental Technology Professor Name Role Phone José Schaffer MD Primary Care Provider Maty gallagher Encounter Details Date Type Department Care Team (Latest Contact Info) Description 06/15/2019 Scan HEALTH INFO SRVCS Scanned, Documents Social [...] CDT Gender Identity Male 06/12/2021 5:16 AM CAGE LOADER Sexual Orientation Straight 06/28/2021 10 :21 AM [...] Group Family & Internal Medicine [facility] [address] [place] [address] [place] [id number] [place], [place] [id number] 02/15/2025 10:45 AM CAGE LOADER Office Visit [facility] [address] [place] [address] Dale Shahid MD [facility], [address] [place] [address] documented as of this encounter Visit Diagnoses Not on filedocumented in this encounter Care Teams Environmental Technology Professor Relationship Specialty Start Date End Date José Schaffer MD PCP - General INTERNAL MEDICINE 04/20/19 12/12/20 documented as of this encounter
--- OUTSIDE RECORDS SUMMARY | 2024-04-11 05:37 | XMS_ITS | Encounter Summary ---
Author Organization [facility] Address [address] [place] [address]. [place] [address] [place] [address] Care Team Providers Care Chemical Laboratory Technician Name Role Phone Unavailable Primary Care Provider Unavailabl e Encounter Details Date Type Department Care Team (Late st Contact Info) Description 12/31/[address] 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 Sexual Orientation Straight 06/28/2021 10 :21 AM CDT documented as of this encounter Plan of Treatment Upcoming Encounters Date Type Department Care Team (Late st Contact Info) Description 08/05/2024 10:00 AM CDT Office Visit [facility] Medical [facility] Family & Internal Medicine [facility] [address] [place] [address] [place] [address] [place] [address] 02/15/2025 10:45 AM MUSEUM EXHIBIT TECHNICIAN Office Visit [facility] [place] [address] [facility] [address] [place] [address] Dale Shahid MD [facility], [address] [place] [address] documented as of this encounter Visit Diagnoses Diagnosis Calculus of ureter documented in this encounter
--- OUTSIDE RECORDS SUMMARY | 2024-04-11 05:37 | XMS_ITS | Encounter Summary ---
Author Organization [facility] Address [address] [place] [address]. 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 Sexual Orientation Straight 06/28/2021 10 :21 AM CDT documented as of this encounter Plan of Treatment Upcoming Encounters Date Type Department Care Team (Late st Contact Info) Description 08/05/2024 10:00 AM CDT Office Visit [facility] Family & Internal Medicine [facility] [address] [place] [address] [place] [address] [place] [address] 02/15/2025 10:45 AM ENVIRONMENTAL PROFESSIONAL Office Visit [facility] [address] [place] [address] Dale Shahid MD [facility], [address] [place] [address] documented as of this encounter Visit Diagnoses Not on filedocumented in this encounter
== END 2024-04-04 08:56 | disposition home or self-care (01) ==
PROVIDERS: Emergency Provider Nurse Practitioner Family
DX: B34.9 Viral infection, unspecified (principal); Z79.899 Other long term (current) drug therapy; Z79.82 Long term (current) use of aspirin
CPT/HCPCS: 99203; G0463